=== PATIENT | male | born 1985 | race Caucasian/White ===

== ENCOUNTER 2016-09-16 04:31 | Inpatient (IN) ==
[2016-09-16 05:07] LABS: Basophils # 0.1 K/mcL (0.0-0.2); Basophils % 0.9 %; Eosinophils # 0.2 K/mcL (0.0-0.6); Eosinophils % 3.5 %; Hematocrit 39.9 % (37.5-50.1); Hemoglobin 13.1 g/dL (12.9-16.9); Immature Granulocytes % 0.3 % (0-4); Lymphocytes # 1.4 K/mcL (0.6-4.6); Lymphocytes % 21.8 %; Mean Corpuscular HGB Conc 32.8 g/dL (31.6-35.5); Mean Corpuscular Hemoglobin 30.3 pg (28.0-33.3); Mean Corpuscular Volume 92.4 fL (83.0-100.0); Mean Platelet Volume 9.8 fL (9.4-12.4); Monocytes # 0.5 K/mcL (0.0-1.3); Monocytes % 7.9 %; Neutrophils # 4.3 K/mcL (1.6-8.9); Platelet Count 140 K/mcL (140-400); Red Blood Count 4.32 M/mcL (4.19-5.50); Red Cell Distribution Width 14.4 % (11.5-14.5); Segmented Neutrophils % 65.6 %
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
[2016-09-16] MEDS ORDERED: Furosemide 40 MG/4 ML VIAL IVP ONE (05:20)
[2016-09-16 05:43] LABS: Carbon Dioxide 27 mEq/L (19-29); Chloride 98 mEq/L (98-109); Potassium 4.9 mEq/L (3.5-4.5); Sodium 139 mEq/L (136-145)
[2016-09-16 05:44] LABS: Alkaline Phosphatase 113 Units/L (38-126); Aspartate Amino Transferase 11 Units/L (5-34); Bilirubin,Direct 0.2 mg/dL (0.0-0.5); Bilirubin,Indirect 0.3 mg/dL (0.0-1.2); Bilirubin,Total 0.5 mg/dL (0.2-1.2); Glucose 131 mg/dL (70-99); eGFR For African Americans 7 (> 60); eGFR For Non-African Americans 6 (> 60)
[2016-09-16 05:45] LABS: Alanine Aminotransferase < 6 Units/L (0-55); Albumin 3.4 g/dL (3.5-5.0); Globulin 3.4 g/dL (2.4-3.5); Total Protein 6.8 g/dL (6.0-8.3)
[2016-09-16 05:46] LABS: BUN/Creatinine Ratio 4 (6-26); Blood Urea Nitrogen 44 mg/dL (8-26); Calcium 10.4 mg/dL (8.6-10.8); Osmolality,Calculated 301 (280-300)
[2016-09-16] MEDS ORDERED: *HR* HYDROcodone/Acet 5/325 mg TABLET PO ONE (05:51)
[2016-09-16] MEDS ORDERED: Ipratropium/Albuterol Neb 3 ML IH ONE (05:54)
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
[2016-09-16] MEDS ORDERED: Ondansetron 4 MG/2 ML VIAL IVP PRN (08:11)
[2016-09-16] MEDS ORDERED: 0.9 % Sodium Chloride 250 ML IV PRN (08:30)
[2016-09-16] MEDS: Metoprolol XL (24 HR) Succ 50 MG TAB.ER.24H PO SCH (09:06)
[2016-09-16] MEDS: Aspirin Enteric Coated 81 MG Tablet PO SCH (09:06)
--- NOTE | 2016-09-16 09:57 | Nephrology Consult Note ---
Date of Encounter: 09/16/16 Time of Encounter: 09:25 Assessment and Plan (1) ESRD (end stage renal disease) on dialysis Current Visit: Yes Status: Chronic ESRD on HD every M/W/. Will arrange for 270 min, which is his standard time on dialysis. He will need HD today for clearance for fluid removal. His Target Weight according to the [facility] records was listed at 132.5kg. Goal UF for today is about 5kg as tolerated. Anemia of CKD: Goal Hgb is 10-11, and will provide EPO &/or IV iron as need, depending upon how long he is hospitalized. CKD-BMD: Phos goal is 3.5-5.5, so he should receive his Phos binders qAC and with snacks (at the beginning of meals). Nutrition: goal serum albumin is 4. Low Phos, Low K+ and high protein (Renal diet) is recommended. Access: KORY AVF appears excellent Thank you for consulting the [facility] group. (2) Accelerated hypertension Current Visit: No Status: Acute Acute on Chronic. Will improve with fluid removal on dialysis today. (3) Lower extremity edema Current Visit: No Status: Acute Should improve with fluid removal on HD today. If needed, he may need an additional treatment (UF) for Friday. Qualifiers: Laterality: bilateral Qualified Code(s): R60.0 - Localized edema (4) Anemia in CKD (chronic kidney disease) Current Visit: No Status: Chronic See above (5) Pleural effusion Current Visit: Yes Status: Acute Acute on chronic. Recurrent and now appears loculated. Does he need a pleurodesis: consider Pulm consulation. History of Present Illness - Reason for Consult Consult date: 09/16/16 end stage renal disease Requesting physician: Genaro Stephens - Chief Complaint Shortness of breath - History of Present Illness Song Snyder is a very pleasant 31 y/o WM with a pmh of ESRD on HD M/W/F, chronic suprapubic catheter, and et al who presented with shortness of breath. He has a known right sided pleural effusion, and the pt volunteered/said that he thinks it has worsened. His shortness of breath has been worsening over the last few days, exacerbated by laying flat and with exertion. He did not affirm F /C/N/V/D, abd pain or any new rash. He was seen in the ICU (because the 2N unit overflowed to the ICU). He was sitting up on the side of his bed. He did not voice any uremic symptoms, either. His primary roving carrier is Dr. Wynne. He dialyzes at the [facility] in [place], [place], via a LUE AVF for 270 min with a goal dry weight of 132.5 kg, which I confirmed with the patient. Past Med Surg Social Fam HX - Past Medical History Medical history: cardiomyopathy, CHF, dialysis, hypertension, renal disease Psychiatric history: depression - Past Surgical History Surgical History: orthopedic, other, vascular surgery - Social History Smoking Status: Current every day smoker Smokeless Tobacco Status: No Alcohol use: none Drug use: none - Family History Mother Living Status: Still Living Hx Family Endocrine Disorder: Yes (DM) Hx Family Neurologic Disorders: Yes (stroke) Father Living Status: Still Living Hx Family Cardiac Disorders: Yes (CAD) Hx Family Respiratory Disorders: No Hx Family Cancer: No Hx Family GI Disorders: No Hx Family Endocrine Disorder: Yes (Diabetes) Hx Family Neuromuscular Disorders: No Hx Family Neurologic Disorders: No Hx Family HEENT Disorders: No Hx Family Autoimmune Disorders: No Medications and Allergies Aspirin Enteric Coated [Aspirin EC] 81 mg PO DAILY #30 tablet. 05/04/15 [Rx] Cinacalcet HCl [Sensipar] 60 mg PO DAILY 04/06/16 [History] Sevelamer [Renvela] 1,600 mg PO TIDWM 04/06/16 [History] HydrALAZINE 50 mg PO Q8HR #90 tablet 07/08/16 [Rx] Metoprolol XL (24 HR) Succ [Toprol Xl] 100 mg PO DAILY #90 tab.er.24h 07/08/16 [ Rx] Furosemide [Lasix] 40 mg PO AD 08/12/16 [History] Albuterol Sulfate [Proair Hfa] 1 - 2 puff IH PRN PRN 08/18/16 [History] Albuterol Sulfate [Albuterol Inhaler] 2 puff IH Q4HR #1 hfa.aer.ad 08/19/16 [Rx] Fluticasone/Salmeterol [Advair 250-50 Diskus] 1 each IH Q12H #1 blst.w.dev 08/19 [Rx] Allergies No Known Allergies Allergy (Verified 08/18/16 18:27) Review of Systems All Systems: reviewed and no additional remarkable complaints except as stated Exam - Vital Signs Vital signs: Initial Vital Signs Temp Pulse Resp BP Pulse Ox 98.2 F 105 18 184/120 95 09/16/16 04:41 09/16/16 04:41 09/16/16 04:41 09/16/16 04:41 09/16/16 04:41 Vital Signs - Last 8 Hours Temp Pulse Resp BP Pulse Ox 09/16/16 08:00 97.7 F 99 16 174/125 96 09/16/16 07:30 98 16 160/123 96 Intake and Output 09/15/16 09/16/16 09/16/16 23:59 07:59 15:59 Intake Total 0 / 0 Output Total 0 / 0 Balance 0 / 0 Intake: Oral 0 / 0 Output: Catheter 0 / 0 Other: Weight 137.4 kg Blood Glucose* 127 Patient Weight 09/16/16 23:59 Weight 137.4 kg - General Appearance General appearance: well-developed, well-nourished, appears started age, obese EENT: ATNC, PERRL, mucous membranes moist Neck: supple Respiratory: clear (on the left, but he has dullness to percusion on the right posteriorly and from the scapula down. ) Cardiology: edema (1+ tight LE edema up to the pretibial b/l), regular rate, normal S1, normal S2 - Dialysis Access Dialysis Vascular Access: Arteriovenous Fistula (LUE) thrill: Yes bruit: Yes Gastrointestinal: normoactive bowel sounds, no guarding, obese Integumentary: no rash, warm and dry Neurologic: no focal deficit, no asterixis, alert and oriented x3 Musculoskeletal: no deformities, no erythema, no cyanosis, no clubbing Psychiatric: mood/affect appropriate, cooperative Results - Lab Results 09/16/16 04:50 09/16/16 04:50 Most recent lab results Calcium 10.4 mg/dL (8.6-10.8) 09/16/16 04:50 I reviewed the above auto-generated date. I also reviewed outside medical records from [facility]. I looked at vitals, including BP and weights. I reviewed imaging, labs and notes. Consult Discharge Plan - Plan Referrals: Lavon Estrada Jr, MD [Primary Care Provider] -
--- NOTE | 2016-09-16 10:32 | Electrocardiograph Report ---
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
[2016-09-16] MEDS: Budesonide/Formoterol 80/4.5 MDI IH SCH ×2 (11:18→20:01)
[2016-09-16] MEDS: Ipratropium/Albuterol Neb 3 ML IH SCH ×4 (11:18→23:13)
--- NOTE | 2016-09-16 12:53 | ECHO - Doppler Report ---
Limited Echocardiogram Name: Song Snyder Date of Study: 09/16/2016 Date: 1985 Ht: 76.0 in Medical Record#: [id number] Age: 31 Wt: 302.0 lb Gender: Male BSA: 2.64 Order #: [id number] Location: [facility] Room #: IC8 Reading Physician: Lamont Mora DO, FACC, FASE, FASNC Suction Drum Drier Operator: Eleonora Denis Ordering Physician: Rustam Baltazar DO Primary Physician: Lavon Estrada MD Indications: Re-evaluate CHF Impressions: LVEF 25-30%. Severely dilated left ventricle. Severe global left ventricular systolic dysfunction. Mildly dilated and hypokinetic right ventricle. Limited study for LVEF. Valves were not assessed. Left Ventricular Wall Motion: Rest Echo Findings The apex, apical inferior, mid inferior, basal inferior, apical anterior, mid anterior, basal anterior, apical septal, mid inferior septal, basal inferior septal, apical lateral, mid anterior lateral, basal anterior lateral, mid anterior septal, mid inferior lateral, basal anterior septal and basal inferior lateral higgins were hypokinetic. Findings: Study Quality * Technically adequate exam. ECG Findings * Normal sinus rhythm. Left Ventricle * LVEF 25-30%. * Severely dilated left ventricle. * Severe global left ventricular systolic dysfunction. Right Ventricle * Mildly dilated and hypokinetic right ventricle. Left Atrium * Severely dilated left atrium. Right Atrium * Moderately dilated right atrium. Pericardium * There is a trivial pericardial effusion present. History Hypertension History of Smoking Years 10 Packs 0.5 Family History of CAD Congestive Heart Failure 06/23/2016 a Previous Echo was performed. Measurements: BP: 174/ 125 2D Normal Values RVIDd: 4.80 cm <2.7 cm IVSd: 1.20 cm 0.6 - 1.0 cm LVIDd: 6.90 cm 3.7 - 5.6 cm LVPWd: 1.20 cm 0.6 - 1.1 cm LVIDs: 6.00 cm 1.5 - 3.6 cm AO: 3.40 cm < 4.0 cm LA: 5.60 cm 2.0 - 4.0cm %FS: 13.00 cm >25 % LA volume: 127 Updated by Lamont Mora DO, FACC, FASE, FASNC on 09/16/2016 12:48:32 PM electronically signed on 09/16/2016 12:49:00 PM with status of Final Wall Motion Lopez: 1=Normal, 2=Hypokinesis, 3=Akinesis, 4=Dyskinesis, 5=Aneurysmal, 6=Hyperkinetic, X=Not Visualized (Blank)=Missing
[2016-09-16] MEDS: Acetaminophen 325 MG TABLET PO PRN ×2 (16:40→22:09)
[2016-09-16] MEDS: *HR* Heparin 5,000 UNIT/ML VIAL SQ SCH ×2 (16:43→16:48)
[2016-09-16] MEDS: hydrALAZINE 25 MG TABLET PO SCH (16:43)
[2016-09-16] MEDS: amLODIPine 5 MG TABLET PO SCH (20:53)
[2016-09-17] MEDS: *HR* Heparin 5,000 UNIT/ML VIAL SQ SCH (01:05)
[2016-09-17] MEDS: hydrALAZINE 25 MG TABLET PO SCH ×2 (01:05→17:00)
[2016-09-17] MEDS: Ipratropium/Albuterol Neb 3 ML IH SCH ×4 (03:27→15:06)
[2016-09-17] MEDS: Acetaminophen 325 MG TABLET PO PRN (04:10)
[2016-09-17] MEDS ORDERED: traMADol 50 MG TABLET PO PRN (05:42)
[2016-09-17] MEDS: Aspirin Enteric Coated 81 MG Tablet PO SCH ×2 (06:04→13:34)
[2016-09-17 07:39] LABS: Basophils # 0.1 K/mcL (0.0-0.2); Basophils % 1.2 %; Eosinophils # 0.3 K/mcL (0.0-0.6); Eosinophils % 5.1 %; Hematocrit 37.5 % (37.5-50.1); Hemoglobin 12.5 g/dL (12.9-16.9); Immature Granulocytes % 0.2 % (0-4); Lymphocytes # 1.7 K/mcL (0.6-4.6); Lymphocytes % 27.5 %; Mean Corpuscular HGB Conc 33.3 g/dL (31.6-35.5); Mean Corpuscular Hemoglobin 30.8 pg (28.0-33.3); Mean Corpuscular Volume 92.4 fL (83.0-100.0); Mean Platelet Volume 10.7 fL (9.4-12.4); Monocytes # 0.6 K/mcL (0.0-1.3); Monocytes % 10.4 %; Neutrophils # 3.4 K/mcL (1.6-8.9); Platelet Count 110 K/mcL (140-400); Red Blood Count 4.06 M/mcL (4.19-5.50); Red Cell Distribution Width 14.5 % (11.5-14.5); Segmented Neutrophils % 55.6 %
[2016-09-17 07:42] LABS: Calcium 9.6 mg/dL (8.6-10.8)
[2016-09-17 07:44] LABS: Potassium 5.1 mEq/L (3.5-4.5)
[2016-09-17] MEDS: Budesonide/Formoterol 80/4.5 MDI IH SCH (07:49)
[2016-09-17] MEDS ORDERED: 0.9 % Sodium Chloride 250 ML IV PRN (08:50)
[2016-09-17] MEDS ORDERED: 0.9 % Sodium Chloride 1,000 ML PRIME SCH (09:00)
--- NOTE | 2016-09-17 09:26 | IR Procedure Note ---
Date of procedure: 09/17/16 Consent Obtained: Verbal consent Timeout: Correct patient and procedure verified, Correct site verified, Time out performed, Skin prep completed Indications: right effusion Procedure Performed: right thoracentesis Site/Technique: right, 8F sheath Results/Findings: moderate pleural fluid Estimated blood loss (cc): 0 Complications: None; Tolerated procedure well Post Procedure Treatment Plan: CXR
[2016-09-17] MEDS ORDERED: Furosemide 20 MG/2 ML VIAL IVP SCH (09:44)
--- NOTE | 2016-09-17 09:58 | Nephrology Progress Note ---
<Matilda Goldman - Last Filed: 09/17/16 10:01> Date of Encounter: 09/17/16 Time of Encounter: 09:56 - Assessment and Plan (1) ESRD (end stage renal disease) on dialysis Current Visit: Yes Status: Chronic Patient is grossly non-compliant with fluids and diet UF today for 2 hours for additional fluid removal Continue renal diet and 1.5 liter/day fluid restriction Avoid nephrotoxins if possible (2) Pleural effusion Current Visit: Yes Status: Acute s/p thoracentesis this am per primary/pulmonary team (3) Accelerated hypertension Current Visit: No Status: Acute Improving Should continue to improve with fluid removal Subjective Principal diagnosis: ESRD on dialysis, fluid overload Interval history: Patient seen and examined while on dialysis. Had right thoracentesis this am with 2 liters removed per patient. Objective - Vital Signs Vital signs: Vital Signs Temp Pulse Resp BP Pulse Ox 09/17/16 07:06 97.7 F 93 16 148/94 93 L 09/17/16 04:20 98.0 F 90 18 137/87 94 L 09/17/16 03:27 18 96 09/16/16 23:56 98.7 F 86 16 122/77 92 L 09/16/16 23:13 15 91 L 09/16/16 20:01 16 96 09/16/16 19:53 97.8 F 86 16 156/110 97 09/16/16 16:55 20 151/101 09/16/16 15:15 151/101 09/16/16 15:00 149/102 09/16/16 14:45 162/106 09/16/16 14:30 159/101 09/16/16 14:15 153/100 09/16/16 14:00 161/105 09/16/16 13:45 171/98 09/16/16 13:30 89 19 138/97 96 09/16/16 13:15 171/98 09/16/16 13:00 161/103 09/16/16 12:45 158/96 09/16/16 12:30 169/115 09/16/16 12:15 169/115 09/16/16 12:00 169/114 09/16/16 11:45 151/82 09/16/16 11:30 97.6 F 18 173/118 09/16/16 11:25 87 20 123/98 95 Intake and Output 09/16/16 09/17/16 09/17/16 23:59 07:59 15:59 Intake Total 600 / 600 Output Total 4032 / 4032 Balance -3432 / -3432 Intake: Oral 600 / 600 Output: Total Dialysis Output 4032 / 4032 Other: Meal Dinner Percent of Meal Consumed 100% Weight 134.717 kg Hemodialysis Net Fluid 3432 Removed (mL) Patient Weight 09/17/16 23:59 Weight 134.717 kg - General Appearance General appearance: Present: appears started age, obese EENT: Present: ATNC, mucous membranes moist, hearing intact, vision intact Neck: Present: supple Respiratory: Present: clear Cardiology: Present: edema, normal S1, normal S2 Dialysis Vascular Access: Arteriovenous Fistula Gastrointestinal: Present: no tenderness, no guarding, obese Integumentary: Present: warm and dry Neurologic: Present: alert and oriented x3 Psychiatric: Present: mood/affect appropriate, cooperative - Lab 09/17/16 06:45 09/17/16 06:45 Most recent lab results Calcium 9.6 mg/dL (8.6-10.8) 09/17/16 06:45 Consult Discharge Plan - Plan Additional Instructions: Take all home medications as prescribed Start amlodipine 10 mg once a day Follow-up with your PCP as scheduled Follow-up with cardiology Recommend maintaining compliance of diet, fluid intake, and dialysis Avoid potentially nephrotoxic medications Referrals: Genoveva Pepper CNP [Partnered Physician] - 09/24/16 1:25 pm Prescriptions: Amlodipine [Norvasc] 10 mg PO DAILY #30 tablet <Roz Fisher - Last Filed: 09/17/16 17:23> Objective - Vital Signs Vital signs: Vital Signs Temp Pulse Resp BP Pulse Ox 09/17/16 16:31 97.6 F 77 12 134/95 95 09/17/16 15:06 16 94 L 09/17/16 12:15 97.7 F 16 155/99 09/17/16 12:00 143/93 09/17/16 11:45 139/102 09/17/16 11:30 149/96 09/17/16 11:15 151/103 09/17/16 11:00 147/100 09/17/16 10:45 150/96 09/17/16 10:30 148/100 09/17/16 10:15 97.7 F 16 150/97 09/17/16 07:49 16 94 L 09/17/16 07:06 97.7 F 93 16 148/94 93 L 09/17/16 04:20 98.0 F 90 18 137/87 94 L 09/17/16 03:27 18 96 09/16/16 23:56 98.7 F 86 16 122/77 92 L 09/16/16 23:13 15 91 L 09/16/16 20:01 16 96 09/16/16 19:53 97.8 F 86 16 156/110 97 Intake and Output 09/17/16 09/17/16 09/17/16 07:59 15:59 23:59 Intake Total 600 / 600 Output Total 5600 / 5600 Balance -5000 / -5000 Intake: Oral 0 / 0 Intake, Rinseback and 600 / 600 Flushes Output: Urine 0 / 0 Total Dialysis Output 5600 / 5600 Other: Weight 134.717 kg Hemodialysis Net Fluid 5000 Removed (mL) Patient Weight 09/17/16 23:59 Weight 134.717 kg - Lab 09/17/16 06:45 09/17/16 06:45 Most recent lab results Calcium 9.6 mg/dL (8.6-10.8) 09/17/16 06:45 - Attending Attestation I examined this patient and my medical decision-making was reviewed with the FEED MIXER/PA/Advanced Practice Nurse/Resident Physician. I agree with the documented findings, disposition and treatment plan as described except to the extent set forth below. Pt seen and examined on HD?UF with complaint of fatigue and requesting paracentesis. Continue UF with goal of 4-5kg as tolerated and will defer decision for paracentesis to primary team
[2016-09-17] MEDS ORDERED: Budesonide/Formoterol 80/4.5 MDI IH SCH (10:00)
--- NOTE | 2016-09-17 10:27 | Internal Med Progress Note ---
<Mauricio Collado - Last Filed: 09/17/16 16:25> Date of Encounter: 09/17/16 Time of Encounter: 09:25 - Assessment and plan (1) Pleural effusion Current Visit: Yes Status: Acute (2) CHF (congestive heart failure) Current Visit: Yes Status: Chronic Qualifiers: Congestive heart failure type: combined Congestive heart failure chronicity : unspecified congestive heart failure chronicity Qualified Code(s): I50.40 - Unspecified combined systolic (congestive) and diastolic (congestive) heart failure (3) ESRD (end stage renal disease) on dialysis Current Visit: Yes Status: Chronic - Time Spent With Patient Greater than 35 minutes - Subjective Interval history: Patient had thoracentesis with removal of 2 L this morning. He states he is feeling much better and is able to breathe without difficulties. He states that after the thoracentesis was performed he has had resolution of his orthopnea. He states this is a chronic problem for him necessitating multiple thoracenteses in the past. Overall feeling better today, but states he thinks he may be developing some fluid in his abdomen as he has been feeling a hardness (that he previously associates with fluid collection). He denies chest pain, denies shortness of breath, denies fever/chills, denies weakness. - Constitutional Vitals: Temp Pulse Resp BP Pulse Ox 97.7 F 93 16 148/94 94 L 09/17/16 07:06 09/17/16 07:06 09/17/16 07:49 09/17/16 07:06 09/17/16 07:49 General appearance: Present: cooperative, A&O X 3, no acute distress, obese, answers questions appropriately - Head Head exam: Present: atraumatic, normocephalic - Eye Eye exam: Present: conjuntiva pink, sclera anicteric - Neck Neck exam general surgery: Present: supple, trachea midline - Respiratory Respiratory exam: Present: decreased breath sounds (On right side). Absent: accessory muscle use, CTAB, rales, rhonchi, wheezes - Cardiovascular Cardiovascular exam: Present: RRR, +S1, +S2. Absent: diastolic murmur, gallop, rubs, systolic murmur - GI/Abdominal GI/Abdominal exam: Present: normal bowel sounds, soft, no peritoneal signs. Absent: distended, tenderness Additional comments: Periumbilical area slightly firm to touch, patient states this is indicative of fluid collection - Extremities Exam Extremities exam: Present: warm, radial pulses palpable and symetrical. Absent : calf tenderness, cyanotic, pedal edema - Neurological Exam Neurological exam: Present: alert, oriented X3, no focal deficits. Absent: facial droop, speech deficit - Skin Skin exam: Present: dry, intact Internal Medicine: Result - Labs CBC & Chem 7: 09/17/16 06:45 09/17/16 06:45 Labs: Short CBC 09/17/16 Range/Units 06:45 WBC 6.1 (4.3-11.1) K/mcL Hgb 12.5 L (12.9-16.9) g/dL Hct 37.5 (37.5-50.1) % Plt Count 110 L (140-400) K/mcL Neutrophils # 3.4 (1.6-8.9) K/mcL BMP 09/17/16 06:45 Sodium 136 Potassium 5.1 H Chloride 100 Carbon Dioxide 23 BUN 35 H Creatinine 8.63 H Glucose 104 H Calcium 9.6 Cardiac Enzymes 09/16/16 09/16/16 Range/Units 10:11 16:20 Troponin I 0.07 H* 0.06 H* (0-0.03) ng/mL - Impressions Impressions Thoracentesis Ultrasound 09/17/16 00:00 IMPRESSION: Successful ultrasound guided thoracentesis. D/ / Tri Truong MD / Tri Truong MD Interpreting Provider: Tri Truong MD Chest X-Ray 09/17/16 09:27 IMPRESSION: No acute cardiopulmonary process. There has been a decrease in the right pleural effusion. No pneumothorax is identified. A moderate to large right pleural effusion persists. There is persistent atelectasis or airspace disease in the right lung base. Follow-up to complete resolution is suggested. D/ / 09/17/2016 10:14:53 Alysia Andersen MD / Nora Daniels Interpreting Provider: Alysia Andersen MD Consult Discharge Plan - Plan Additional Instructions: Take all home medications as prescribed Start amlodipine 10 mg once a day Follow-up with your PCP as scheduled Follow-up with cardiology Recommend maintaining compliance of diet, fluid intake, and dialysis Avoid potentially nephrotoxic medications Referrals: Genoveva Pepper CNP [Partnered Physician] - 09/24/16 1:25 pm Prescriptions: Amlodipine [Norvasc] 10 mg PO DAILY #30 tablet <Vicente Mayfield - Last Filed: 09/17/16 17:05> - Constitutional Vitals: Temp Pulse Resp BP Pulse Ox 97.6 F 77 12 134/95 95 09/17/16 16:31 09/17/16 16:31 09/17/16 16:31 09/17/16 16:31 09/17/16 16:31 Internal Medicine: Result - Labs CBC & Chem 7: 09/17/16 06:45 09/17/16 06:45 Labs: Short CBC 09/17/16 Range/Units 06:45 WBC 6.1 (4.3-11.1) K/mcL Hgb 12.5 L (12.9-16.9) g/dL Hct 37.5 (37.5-50.1) % Plt Count 110 L (140-400) K/mcL Neutrophils # 3.4 (1.6-8.9) K/mcL BMP 09/17/16 06:45 Sodium 136 Potassium 5.1 H Chloride 100 Carbon Dioxide 23 BUN 35 H Creatinine 8.63 H Glucose 104 H Calcium 9.6 - Impressions Impressions Thoracentesis Ultrasound 09/17/16 00:00 IMPRESSION: Successful ultrasound guided thoracentesis. D/ / Tri Truong MD / Tri Truong MD Interpreting Provider: Tri Truong MD Chest X-Ray 09/17/16 09:27 IMPRESSION: No acute cardiopulmonary process. There has been a decrease in the right pleural effusion. No pneumothorax is identified. A moderate to large right pleural effusion persists. There is persistent atelectasis or airspace disease in the right lung base. Follow-up to complete resolution is suggested. D/ / 09/17/2016 10:14:53 Alysia Andersen MD / Nora Daniels Interpreting Provider: Alysia Andersen MD - Attending Attestation The patient was seen and examined with the resident during rounds. I agree with the physical examination findings, assessment and plan as documented by the resident, Dr. Collado. Briefly, patient with end-stage renal disease on hemodialysis and severe systolic dysfunction admitted due to fluid overload and hypoxemia. He has improved after hemodialysis and thoracenteses done via interventional radiology. Patient will follow up with cardiology in light of persistent systolic dysfunction, he likely benefit from resynchronization therapy and possible implantable cardiac defibrillator. Patient will be discharged home today. Follow up with cardiology and nephrology is recommended.
[2016-09-17] MEDS: amLODIPine 5 MG TABLET PO SCH (13:33)
[2016-09-17] MEDS: Metoprolol XL (24 HR) Succ 50 MG TAB.ER.24H PO SCH (13:33)
[2016-09-17] MEDS ORDERED: 0.9 % Sodium Chloride 2,000 ML ONE (13:39)
--- NOTE | 2016-09-17 15:40 | Discharge Summary ---
<Mauricio Collado - Last Filed: 09/17/16 15:37> Date of Encounter: 09/17/16 Time of Encounter: 09:25 - Discharge Diagnosis (1) Pleural effusion Priority: Primary Status: Acute (2) CHF (congestive heart failure) Priority: Primary Status: Chronic Qualifiers: Congestive heart failure type: combined Congestive heart failure chronicity : unspecified congestive heart failure chronicity Qualified Code(s): I50.40 - Unspecified combined systolic (congestive) and diastolic (congestive) heart failure (3) ESRD (end stage renal disease) on dialysis Priority: Primary Status: Chronic - Discharge Medications Prescriptions: Amlodipine [Norvasc] 10 mg PO DAILY #30 tablet Home Medications: Aspirin Enteric Coated [Aspirin EC] 81 mg PO DAILY #30 tablet.dr 05/04/15 [Rx] Cinacalcet HCl [Sensipar] 60 mg PO DAILY 04/06/16 [History] Sevelamer [Renvela] 1,600 mg PO TIDWM 04/06/16 [History] HydrALAZINE 50 mg PO Q8HR #90 tablet 07/08/16 [Rx] Metoprolol XL (24 HR) Succ [Toprol Xl] 100 mg PO DAILY #90 tab.er.24h 07/08/16 [ Rx] Furosemide [Lasix] 40 mg PO AD 08/12/16 [History] Albuterol Sulfate [Proair Hfa] 1 - 2 puff IH PRN PRN 08/18/16 [History] Albuterol Sulfate [Albuterol Inhaler] 2 puff IH Q4HR #1 hfa.aer.ad 08/19/16 [Rx] Fluticasone/Salmeterol [Advair 250-50 Diskus] 1 each IH Q12H #1 blst.w.dev 08/19 [Rx] Amlodipine [Norvasc] 10 mg PO DAILY #30 tablet 09/17/16 [Rx] Allergies/Adverse Reactions: Allergies No Known Allergies Allergy (Verified 08/18/16 18:27) Procedures/tests Complete & Pending: Procedures Performed prior 72 hours Category Date Time Status IR thoracentesis ultrasound [IR] Routine IR 09/17/16 Completed EV limited echocardiogram Routine Y 09/16/16 08:50 Completed Date of admission: 09/16/16 07:15 Primary care physician: Lavon Estrada Jr, MD Consults: 09/16/16 07:37 Consult to Nephrology [CONS] Routine Consulting Provider: [facility] Sp[facility] CHOI/JEANETTE Reason for Consult: ESRD on HD MWF Call Completed: Yes 09/16/16 08:30 Consult to Dialysis [CONS] ONCE 09/16/16 08:51 Consult to Interventional Radiology [CONS] Routine Consulting Provider: Radiology Interventional Cols Reason for Consult: Right pleural effusion. Appreciate thoracentesis Call Completed: Yes 09/17/16 08:30 Consult to Dialysis [CONS] ONCE 09/17/16 09:00 Consult to Dialysis [CONS] ONCE Discharging clinician: Mauricio Collado Anticipated date of discharge: 09/17/16 - Patient Status Disposition: Home, Self-Care Condition: Good Functional capacity at discharge: independent ambulation Overall status at discharge: patient is back to baseline - Discharge Instructions Follow Up With: Genoveva Pepper CNP [Partnered Physician] - 09/24/16 1:25 pm Forms: ED Satisfaction Letter Additional Instructions: Take all home medications as prescribed Start amlodipine 10 mg once a day Follow-up with your PCP as scheduled Follow-up with cardiology Recommend maintaining compliance of diet, fluid intake, and dialysis Avoid potentially nephrotoxic medications - Diet and Activity Activity: increase activity as tolerated Diet: advance to your usual diet ( ) Interval History: Patient had thoracentesis with removal of 2 L this morning. He states he is feeling much better and is able to breathe without difficulties. He states that after the thoracentesis was performed he has had resolution of his orthopnea. He states this is a chronic problem for him necessitating multiple thoracenteses in the past. Overall feeling better today, but states he thinks he may be developing some fluid in his abdomen as he has been feeling a hardness (that he previously associates with fluid collection). He denies chest pain, denies shortness of breath, denies fever/chills, denies weakness. Hospital course: Mr. Snyder is a 31 year old male with prior medical history of systolic and diastolic heart failure, ESRD on HD, and hypertension who presented to [facility] on 09/16/16 with worsening shortness of breath despite his compliance with dialysis. He was found to have significant right-sided pleural effusion on chest x-ray. He underwent dialysis on 09/16/16 and again on 09/17/16. Interventional radiology performed a successful thoracentesis amateur 2 L of serous fluid. He has received multiple thoracenteses in the past, and patient reports that he felt much improved following the procedure. He states that his breathing was back to normal and he felt perfectly fine. Patient is stable for discharge, with close follow-up with his director validation and continued dialysis. Recommend maintain compliance with diet, fluids, and dialysis. - Time Spent with Patient Total time spent providing and/or coordinating discharge services: Greater than 30 minutes - Constitutional Vitals: Temp Pulse Resp BP Pulse Ox 97.7 F 93 16 155/99 94 L 09/17/16 12:15 09/17/16 07:06 09/17/16 15:06 09/17/16 12:15 09/17/16 15:06 General appearance: Present: cooperative, A&O X 3, no acute distress, obese, answers questions appropriately - Head Head exam: Present: atraumatic, normocephalic - Eye Eye exam: Present: conjuntiva pink, sclera anicteric - Neck Neck exam general surgery: Present: supple, trachea midline - Respiratory Respiratory exam: Present: decreased breath sounds (On right). Absent: accessory muscle use, CTAB, rales, rhonchi, wheezes - Cardiovascular Cardiovascular exam: Present: RRR, +S1, +S2, systolic murmur. Absent: diastolic murmur, gallop, rubs - GI/Abdominal GI/Abdominal exam: Present: normal bowel sounds, soft, no peritoneal signs. Absent: distended, tenderness - Extremities Exam Extremities exam: Present: warm, radial pulses palpable and symetrical. Absent : calf tenderness, cyanotic, pedal edema - Neurological Exam Neurological exam: Present: alert, oriented X3, no focal deficits. Absent: facial droop, speech deficit - Skin Skin exam: Present: dry, intact <Vicente Mayfield - Last Filed: 09/17/16 17:05> Procedures/tests Complete & Pending: Procedures Performed prior 72 hours Category Date Time Status IR thoracentesis ultrasound [IR] Routine IR 09/17/16 Completed EV limited echocardiogram Routine Y 09/16/16 08:50 Completed Date of admission: 09/16/16 07:15 Primary care physician: Lavon Estrada Jr, MD Consults: 09/16/16 07:37 Consult to Nephrology [CONS] Routine Consulting Provider: [facility] Sp[facility] CHOI/JEANETTE Reason for Consult: ESRD on HD MWF Call Completed: Yes 09/16/16 08:30 Consult to Dialysis [CONS] ONCE 09/16/16 08:51 Consult to Interventional Radiology [CONS] Routine Consulting Provider: Radiology Interventional Cols Reason for Consult: Right pleural effusion. Appreciate thoracentesis Call Completed: Yes 09/17/16 08:30 Consult to Dialysis [CONS] ONCE 09/17/16 09:00 Consult to Dialysis [CONS] ONCE Hospital course: Mr. Snyder is a 31 year old male - Time Spent with Patient Total time spent providing and/or coordinating discharge services: - Constitutional Vitals: Temp Pulse Resp BP Pulse Ox 97.6 F 77 12 134/95 95 09/17/16 16:31 09/17/16 16:31 09/17/16 16:31 09/17/16 16:31 09/17/16 16:31 - Attending Attestation The patient was seen and examined with the resident during rounds. I agree with the physical examination findings, assessment and plan as documented by the resident, Dr. Collado. Briefly, patient with end-stage renal disease on hemodialysis and severe systolic dysfunction admitted due to fluid overload and hypoxemia. He has improved after hemodialysis and thoracenteses done via interventional radiology. Patient will follow up with cardiology in light of persistent systolic dysfunction, he likely benefit from resynchronization therapy and possible implantable cardiac defibrillator. Patient will be discharged home today. Follow up with cardiology and nephrology is recommended.
[2016-09-17 16:32] VITALS: BP 134/95
== END 2016-09-17 18:52 | disposition home or self-care (01) | DRG 186 ==
LOC: EMEROO 04:31 → ICNU 07:15 → SUATTDRO 07:15 → ICNU 08:02 → 2ANU 16:45
PROVIDERS: ADMIT Internal Medicine Sleep Medicine; ATTEND Internal Medicine

== ENCOUNTER 2016-09-30 14:46 | Observation (INO) ==
[2016-09-30] MEDS ORDERED: Ipratropium/Albuterol Neb 3 ML IH ONE (15:04)
[2016-09-30 15:15] LABS: Basophils # 0.1 K/mcL (0.0-0.2); Eosinophils # 0.3 K/mcL (0.0-0.6); Eosinophils % 4.1 %; Hemoglobin 12.9 g/dL (12.9-16.9); Immature Granulocytes % 0.2 % (0-4); Lymphocytes # 1.4 K/mcL (0.6-4.6); Lymphocytes % 22.1 %; Mean Corpuscular HGB Conc 33.9 g/dL (31.6-35.5); Mean Corpuscular Hemoglobin 30.6 pg (28.0-33.3); Mean Corpuscular Volume 90.3 fL (83.0-100.0); Mean Platelet Volume 10.1 fL (9.4-12.4); Monocytes # 0.5 K/mcL (0.0-1.3); Monocytes % 7.8 %; Neutrophils # 4.1 K/mcL (1.6-8.9); Platelet Count 152 K/mcL (140-400); Red Blood Count 4.21 M/mcL (4.19-5.50); Red Cell Distribution Width 14.1 % (11.5-14.5); Segmented Neutrophils % 64.8 %
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
[2016-09-30 15:25] LABS: Calcium 9.1 mg/dL (8.6-10.8); Potassium 3.4 mEq/L (3.5-4.5)
[2016-09-30] MEDS ORDERED: Ondansetron 4 MG/2 ML VIAL IVP ONE (15:33)
[2016-09-30] MEDS ORDERED: *HR* Morphine 2 MG/ML SYRINGE IV ONE (15:33)
[2016-09-30] MEDS ORDERED: Naloxone 0.4 MG/ML INJ IVP PRN (21:17)
[2016-09-30] MEDS ORDERED: Ondansetron ODT 4 MG TAB.RAPDIS SL PRN (21:17)
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
[2016-09-30] MEDS: Budesonide/Formoterol 80/4.5 MDI IH SCH (23:37)
[2016-09-30] MEDS: hydrALAZINE 25 MG TABLET PO SCH (23:52)
[2016-10-01] MEDS: Acetaminophen 325 MG TABLET PO PRN ×4 (02:02→22:23)
[2016-10-01 04:30] LABS: Basophils # 0.1 K/mcL (0.0-0.2); Basophils % 1.1 %; Eosinophils # 0.2 K/mcL (0.0-0.6); Eosinophils % 4.9 %; Hematocrit 37.7 % (37.5-50.1); Hemoglobin 12.4 g/dL (12.9-16.9); Immature Granulocytes % 0.2 % (0-4); Lymphocytes # 1.1 K/mcL (0.6-4.6); Lymphocytes % 24.1 %; Mean Corpuscular HGB Conc 32.9 g/dL (31.6-35.5); Mean Corpuscular Hemoglobin 30.5 pg (28.0-33.3); Mean Corpuscular Volume 92.9 fL (83.0-100.0); Mean Platelet Volume 10.2 fL (9.4-12.4); Monocytes # 0.5 K/mcL (0.0-1.3); Monocytes % 10.4 %; Neutrophils # 2.8 K/mcL (1.6-8.9); Platelet Count 124 K/mcL (140-400); Red Blood Count 4.06 M/mcL (4.19-5.50); Red Cell Distribution Width 14.1 % (11.5-14.5); Segmented Neutrophils % 59.3 %
[2016-10-01 04:45] LABS: Calcium 9.9 mg/dL (8.6-10.8); Magnesium 2.1 mg/dL (1.6-2.6); Phosphorous 7.8 mg/dL (2.3-4.7); Potassium 4.2 mEq/L (3.5-4.5)
[2016-10-01] MEDS: Ipratropium/Albuterol Neb 3 ML IH SCH ×2 (05:33→12:28)
[2016-10-01] MEDS: *HR* Heparin 5,000 UNIT/ML VIAL SQ SCH ×2 (06:18→17:11)
[2016-10-01] MEDS: Budesonide/Formoterol 80/4.5 MDI IH SCH ×2 (07:47→22:37)
[2016-10-01] MEDS: hydrALAZINE 25 MG TABLET PO SCH ×3 (08:05→22:23)
[2016-10-01] MEDS: Aspirin Enteric Coated 81 MG Tablet PO SCH (08:06)
[2016-10-01] MEDS: Metoprolol XL (24 HR) Succ 50 MG TAB.ER.24H PO SCH (08:08)
--- NOTE | 2016-10-01 08:43 | Nephrology Consult Note ---
Date of Encounter: 10/01/16 Time of Encounter: 09:50 Assessment and Plan (1) ESRD (end stage renal disease) on dialysis Current Visit: Yes Status: Chronic Last HD was on Friday, which was yesterday. Pleural Effusion: would he need a pleurodesis? I've brought this up in the past. Will defer to primary. Next HD is planned for Friday. HTN: continue home Rx, Renal diet with fluid and salt restriction given his chronic edema His Target/Dry weight, is listed as 129kg in the [facility] records, and he weighs 129 kg today, so he appears to not need extra HD or UF today. Thank you for consulting the [facility]. (2) Pleural effusion Current Visit: Yes Status: Acute (3) Hypertension Current Visit: Yes Status: Chronic Qualifiers: Hypertension type: essential hypertension Qualified Code(s): I10 - Essential (primary) hypertension History of Present Illness - Reason for Consult Consult date: 10/01/16 end stage renal disease Requesting physician: Melania Rey - Chief Complaint ESRD with recurrent pleural effusion - History of Present Illness Song Snyder is a very pleasant 31 y/o gentleman with a pmh of obesity, edema , ESRD on HD M/WF, recurrent pleural effusion and et al who presented with worsened shortness of breath and worsened pleural effusion. He did not affirm N/ V/D or chest pain. He last attended dialysis yesterday at his chronic unit, [facility] in [place], [place]. His primary junior manufacturing engineer is Dr. Wynne. He dialyzes via a LUE AVF. He did not complete all of his last HD, he said he stopped about 20 min early d/t his worsening shortness of breath, which improves when he lays with the effusion side down, thus on his side. He did not affirm F/C or problems with chronic suprapubic catheter. Past Med Surg Social Fam HX - Past Medical History Medical history: cardiomyopathy, CHF, dialysis, hypertension, renal disease Psychiatric history: depression - Past Surgical History Surgical History: orthopedic, other, vascular surgery - Social History Smoking Status: Current every day smoker Packs per day: <1 Smokeless Tobacco Status: No Alcohol use: none Drug use: none - Family History Mother Living Status: Still Living Hx Family Endocrine Disorder: Yes (DM) Hx Family Neurologic Disorders: Yes (stroke) Father Living Status: Still Living Hx Family Cardiac Disorders: Yes (CAD) Hx Family Respiratory Disorders: No Hx Family Cancer: No Hx Family GI Disorders: No Hx Family Endocrine Disorder: Yes (Diabetes) Hx Family Neuromuscular Disorders: No Hx Family Neurologic Disorders: No Hx Family HEENT Disorders: No Hx Family Autoimmune Disorders: No Medications and Allergies Aspirin Enteric Coated [Aspirin EC] 81 mg PO DAILY #30 tablet.dr 05/04/15 [Rx] Cinacalcet HCl [Sensipar] 60 mg PO DAILY 04/06/16 [History] Sevelamer [Renvela] 1,600 mg PO TIDWM 04/06/16 [History] HydrALAZINE 50 mg PO Q8HR #90 tablet 07/08/16 [Rx] Metoprolol XL (24 HR) Succ [Toprol Xl] 100 mg PO DAILY #90 tab.er.24h 07/08/16 [ Rx] Furosemide [Lasix] 40 mg PO SUTUTHSA 08/12/16 [History] Albuterol Sulfate [Albuterol Inhaler] 2 puff IH Q4HR #1 hfa.aer.ad 08/19/16 [Rx] Fluticasone/Salmeterol [Advair 250-50 Diskus] 1 puff IH Q12H 09/30/16 [History] Ipratropium/Albuterol Neb [Duoneb] 3 ml IH Q6HR 09/30/16 [History] Allergies No Known Allergies Allergy (Verified 08/18/16 18:27) Review of Systems All Systems: reviewed and no additional remarkable complaints except as stated Exam - Vital Signs Vital signs: Initial Vital Signs Temp Pulse Resp BP Pulse Ox 98.1 F 91 18 161/110 94 L 09/30/16 14:47 09/30/16 14:47 09/30/16 14:47 09/30/16 14:47 09/30/16 14:47 Vital Signs - Last 8 Hours Temp Pulse Resp BP Pulse Ox 10/01/16 07:50 16 97 10/01/16 07:21 97.8 F 84 17 131/72 94 L 10/01/16 04:11 97.8 F 75 18 143/91 92 L 10/01/16 03:59 20 94 L 10/01/16 00:43 98.0 F 90 20 148/91 94 L - General Appearance General appearance: well-developed, well-nourished, appears started age EENT: ATNC, PERRL, mucous membranes moist Neck: supple Respiratory: course breath sounds Cardiology: edema, regular rate, regular rhythm, normal S1, normal S2 - Dialysis Access Dialysis Vascular Access: Arteriovenous Fistula thrill: Yes bruit: Yes Gastrointestinal: normoactive bowel sounds, no tenderness, no guarding, obese Integumentary: no rash, warm and dry Neurologic: no focal deficit, no asterixis, alert and oriented x3 Musculoskeletal: no deformities, no erythema, no cyanosis Psychiatric: mood/affect appropriate, cooperative Results - Lab Results 10/01/16 04:02 10/01/16 04:02 Most recent lab results Calcium 9.9 mg/dL (8.6-10.8) 10/01/16 04:02 Phosphorus 7.8 mg/dL (2.3-4.7) H 10/01/16 04:02 Magnesium 2.1 mg/dL (1.6-2.6) 10/01/16 04:02 I reviewed the above autogenerated data, including labs, meds, vitals, imaging and outside [facility] med records including dialysis run data. Consult Discharge Plan - Plan Referrals: NO,PCP [Primary Care Provider] -
[2016-10-01] MEDS ORDERED: Furosemide 20 MG TABLET PO SCH (09:00)
[2016-10-01] MEDS ORDERED: Ipratropium/Albuterol Neb 3 ML IH PRN (12:35)
--- NOTE | 2016-10-01 15:13 | Internal Med Progress Note ---
Date of Encounter: 10/01/16 Time of Encounter: 15:11 - Assessment and plan (1) Pleural effusion Current Visit: Yes Status: Acute Assessment and plan: Recurrent right-sided pleural effusion, uncertain etiology but most likely related to volume and pressure changes due to underlying ESRD on hemodialysis and CHF. Patient is also noted to be noncompliant with medical appointments and hemodialysis sessions. Feels much better currently status post right-sided thoracentesis with removal of almost 2000 mL. Given his multiple readmissions with similar complaints and history of noncompliance, case discussed with CT surgery for possible pleurodesis, will follow-up recommendations. (2) CHF (congestive heart failure) Current Visit: Yes Status: Chronic Assessment and plan: Continue diuretics and beta blockers and supplemental oxygen as needed. Qualifiers: Congestive heart failure type: combined Congestive heart failure chronicity : chronic Qualified Code(s): I50.42 - Chronic combined systolic (congestive) and diastolic (congestive) heart failure (3) Cigarette smoker Current Visit: Yes Status: Chronic (4) ESRD (end stage renal disease) on dialysis Current Visit: Yes Status: Chronic Assessment and plan: Nephrology consulted for continued hemodialysis needs. Next Hemodialysis session tomorrow. (5) Hypertension Current Visit: Yes Status: Chronic Qualifiers: Hypertension type: essential hypertension Qualified Code(s): I10 - Essential (primary) hypertension - Subjective Interval history: Reports feeling very tired. Much improved shortness of breath and orthopnea. Feels very well after thoracentesis. - Constitutional Vitals: Temp Pulse Resp BP Pulse Ox 97.8 F 84 16 131/72 97 10/01/16 07:21 10/01/16 07:21 10/01/16 07:50 10/01/16 07:21 10/01/16 07:50 General appearance: Present: A&O X 3, obese, answers questions appropriately - Head Head exam: Present: atraumatic, normocephalic - Neck Neck exam general surgery: Present: supple, trachea midline. Absent: lymphadenopathy - Respiratory Respiratory exam: Present: CTAB. Absent: accessory muscle use, rales, rhonchi, wheezes - Cardiovascular Cardiovascular exam: Present: RRR, +S1, +S2. Absent: diastolic murmur, gallop, rubs, systolic murmur - GI/Abdominal GI/Abdominal exam: Present: normal bowel sounds, soft, no peritoneal signs. Absent: distended, tenderness - Extremities Exam Extremities exam: Present: pedal edema, warm, radial pulses palpable and symetrical. Absent: calf tenderness, cyanotic - Neurological Exam Neurological exam: Present: CN II-XII intact, oriented X3, no focal deficits. Absent: pronater drift, facial droop, speech deficit - Skin Skin exam: Present: dry, intact Internal Medicine: Result - Labs CBC & Chem 7: 10/01/16 04:02 10/01/16 04:02 Labs: Short CBC 10/01/16 Range/Units 04:02 WBC 4.7 (4.3-11.1) K/mcL Hgb 12.4 L (12.9-16.9) g/dL Hct 37.7 (37.5-50.1) % Plt Count 124 L (140-400) K/mcL Neutrophils # 2.8 (1.6-8.9) K/mcL BMP 10/01/16 04:02 Sodium 138 Potassium 4.2 Chloride 96 L Carbon Dioxide 30 H BUN 36 H Creatinine 9.29 H Glucose 104 H Calcium 9.9 - Impressions Impressions Thoracentesis Ultrasound 10/01/16 00:00 IMPRESSION: Successful ultrasound guided thoracentesis. D/ / Tri Truong MD / Tri Truong MD Interpreting Provider: Tri Truong MD Chest X-Ray 10/01/16 11:27 IMPRESSION: Negative for pneumothorax status post thoracentesis D/ / Lui Lezama MD / Lui Lezama MD Interpreting Provider: Lui Lezama MD Consult Discharge Plan - Plan Referrals: NO,PCP [Primary Care Provider] -
--- NOTE | 2016-10-01 18:26 | Electrocardiograph Report ---
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
[2016-10-01] MEDS ORDERED: Temazepam 15 MG CAPSULE PO ONE (22:06)
[2016-10-02 06:15] LABS: Basophils % 0.7 %; Eosinophils # 0.3 K/mcL (0.0-0.6); Eosinophils % 5.6 %; Hematocrit 37.7 % (37.5-50.1); Hemoglobin 12.4 g/dL (12.9-16.9); Immature Granulocytes % 0.3 % (0-4); Lymphocytes # 1.3 K/mcL (0.6-4.6); Lymphocytes % 21.1 %; Mean Corpuscular HGB Conc 32.9 g/dL (31.6-35.5); Mean Corpuscular Hemoglobin 30.7 pg (28.0-33.3); Mean Corpuscular Volume 93.3 fL (83.0-100.0); Mean Platelet Volume 10.5 fL (9.4-12.4); Monocytes # 0.5 K/mcL (0.0-1.3); Monocytes % 8.4 %; Neutrophils # 3.8 K/mcL (1.6-8.9); Platelet Count 129 K/mcL (140-400); Red Blood Count 4.04 M/mcL (4.19-5.50); Red Cell Distribution Width 14.2 % (11.5-14.5); Segmented Neutrophils % 63.9 %
[2016-10-02] MEDS: hydrALAZINE 25 MG TABLET PO SCH (06:19)
[2016-10-02] MEDS: *HR* Heparin 5,000 UNIT/ML VIAL SQ SCH (06:21)
[2016-10-02 06:29] LABS: Calcium 9.3 mg/dL (8.6-10.8); Phosphorous 8.1 mg/dL (2.3-4.7); Potassium 4.4 mEq/L (3.5-4.5)
[2016-10-02] MEDS: Aspirin Enteric Coated 81 MG Tablet PO SCH (07:58)
[2016-10-02] MEDS: Metoprolol XL (24 HR) Succ 50 MG TAB.ER.24H PO SCH (08:04)
[2016-10-02] MEDS ORDERED: 0.9 % Sodium Chloride 250 ML IV PRN (08:24)
--- NOTE | 2016-10-02 08:29 | Nephrology Progress Note ---
Date of Encounter: 10/03/16 Time of Encounter: 11:00 - Assessment and Plan (1) ESRD (end stage renal disease) on dialysis Status: Chronic HD today for clearance and volume. I reviewed his Dry Weight in the [facility] med records, which is listed as 129.5kg, but today will challenge him for a goal UF of 6kg over 4hr of HD. Hyperphosphatemia: continue sevelemr and ensure he has a low Phos diet. Next HD is planned for Friday, if he were still hospitalized. From a nephro perspective he is okay to d/c and dialysis could be continued as an outpt at [facility] in [place], [place]. Pleural effusion, as per primary. Anemia: goal Hgb is 10-11 (2) Pleural effusion Status: Acute (3) Hypertension Status: Chronic Qualifiers: Hypertension type: essential hypertension Qualified Code(s): I10 - Essential (primary) hypertension Subjective Principal diagnosis: t-1 Interval history: Pt was s/e earlier in the day. He did not affirm N/V/D or uremic complaints. He was seen on HD. Objective - Vital Signs Vital signs: Vital Signs Temp Pulse Resp BP Pulse Ox 10/02/16 07:45 97.8 F 91 18 117/71 97 10/02/16 04:29 97.3 F L 69 16 135/87 96 10/02/16 00:26 97.4 F L 76 16 139/92 96 10/01/16 22:40 16 98 10/01/16 19:38 97.6 F 70 16 118/77 98 10/01/16 15:30 98.0 F 73 16 127/79 92 L Intake and Output 10/01/16 10/02/16 10/02/16 23:59 07:59 15:59 Intake Total 120 / 120 Balance 120 / 120 Intake: Oral 120 / 120 Other: Meal Dinner Percent of Meal Consumed 10% Weight 132.4 kg Patient Weight 10/02/16 23:59 Weight 132.4 kg - General Appearance General appearance: Present: well-developed, well-nourished, appears started age EENT: Present: ATNC, PERRL, mucous membranes moist Neck: Present: supple Respiratory: Present: clear Cardiology: Present: edema, regular rate, regular rhythm, normal S1, normal S2 Dialysis Vascular Access: Arteriovenous Fistula thrill: Yes bruit: Yes Gastrointestinal: Present: normoactive bowel sounds, no tenderness, no guarding Integumentary: Present: warm and dry Neurologic: Present: no focal deficit, no asterixis, alert and oriented x3 Musculoskeletal: Present: no deformities, no erythema, no cyanosis Psychiatric: Present: mood/affect appropriate, cooperative - Lab 10/02/16 05:54 10/02/16 05:54 Most recent lab results Calcium 9.3 mg/dL (8.6-10.8) 10/02/16 05:54 Phosphorus 8.1 mg/dL (2.3-4.7) H 10/02/16 05:54 Magnesium 2.1 mg/dL (1.6-2.6) 10/01/16 04:02 Consult Discharge Plan - Plan Instructions: Heart Failure (DC), Acute Respiratory Distress Syndrome (DC) Additional Instructions: F/up with as scheduled F/up for HD- MWF Referrals: NO,PCP [Primary Care Provider] -
--- NOTE | 2016-10-02 09:35 | Cardiothoracic Consult Note ---
Date of Encounter: 10/02/16 Time of Encounter: 09:34 - History of Present Illness Consult date: 10/01/16 Requesting physician: Mima De Jesus Consult reason: Recurrent right pleural effusion. Chief complaint: Shortness of breath History of present illness: Mr. Snyder is a 31 year old Past Med Surg Social Fam HX - Past Medical History Medical history: cardiomyopathy, CHF, dialysis, hypertension, renal disease Psychiatric history: depression - Past Surgical History Surgical History: orthopedic, other, vascular surgery - Social History Smoking Status: Current every day smoker Packs per day: <1 Smokeless Tobacco Status: No Alcohol use: none Drug use: none - Family History Mother Living Status: Still Living Hx Family Endocrine Disorder: Yes (DM) Hx Family Neurologic Disorders: Yes (stroke) Father Living Status: Still Living Hx Family Cardiac Disorders: Yes (CAD) Hx Family Respiratory Disorders: No Hx Family Cancer: No Hx Family GI Disorders: No Hx Family Endocrine Disorder: Yes (Diabetes) Hx Family Neuromuscular Disorders: No Hx Family Neurologic Disorders: No Hx Family HEENT Disorders: No Hx Family Autoimmune Disorders: No Medications and Allergies Aspirin Enteric Coated [Aspirin EC] 81 mg PO DAILY #30 tablet.dr 05/04/15 [Rx] Cinacalcet HCl [Sensipar] 60 mg PO DAILY 04/06/16 [History] Sevelamer [Renvela] 1,600 mg PO TIDWM 04/06/16 [History] HydrALAZINE 50 mg PO Q8HR #90 tablet 07/08/16 [Rx] Metoprolol XL (24 HR) Succ [Toprol Xl] 100 mg PO DAILY #90 tab.er.24h 07/08/16 [ Rx] Furosemide [Lasix] 40 mg PO SUTUTHSA 08/12/16 [History] Albuterol Sulfate [Albuterol Inhaler] 2 puff IH Q4HR #1 hfa.aer.ad 08/19/16 [Rx] Fluticasone/Salmeterol [Advair 250-50 Diskus] 1 puff IH Q12H 09/30/16 [History] Ipratropium/Albuterol Neb [Duoneb] 3 ml IH Q6HR 09/30/16 [History] Allergies No Known Allergies Allergy (Verified 08/18/16 18:27) All Systems Review: A 10-system review of systems was performed and is negative for pertinent findings except as documented above in the HPI. Physical Examination Vital Signs, Last 4 Hours Temp Pulse Resp BP Pulse Ox 10/02/16 07:45 97.8 F 91 18 117/71 97 Results 10/02/16 05:54 10/02/16 05:54 Lab Results, Last 24 hours 10/02/16 10/02/16 05:54 05:54 WBC 5.9 Hgb 12.4 L Hct 37.7 Plt Count 129 L Sodium 138 Potassium 4.4 Chloride 97 L Carbon Dioxide 28 BUN 51 H D Creatinine 10.79 H Glucose 101 H Calcium 9.3 Consult Discharge Plan - Plan Referrals: NO,PCP [Primary Care Provider] -
--- NOTE | 2016-10-02 09:40 | Cardiothoracic Consult Note ---
Date of Encounter: 10/02/16 Time of Encounter: 09:38 Assessment and Plan (1) Pleural effusion Current Visit: Yes Status: Acute The patient is a 31-year-old hypertensive man with cardiomyopathy and end-stage renal disease requiring hemodialysis. The patient has had multiple admissions for shortness of breath due to recurrent right pleural effusion. The patient states that he is getting undergone at least 6 thoracenteses during the last year with temporary resolution of the symptoms. The most recent thoracentesis was performed on August 17, 2016. The post procedure chest x-ray showed residual compressive atelectasis of the right lung and a follow-up chest x-ray performed approximately 10 days later showed a similar appearance. Since the process is long-standing, the patient may have developed a pleural peel which will not allow complete reexpansion of the lung. I have discussed possible right chest tube placement with the patient in an attempt to completely drain the pleural effusion and allow the lung to reexpand. If there is complete reexpansion of the right lung a talc pleurodesis could be considered. If, however, the patient has incomplete reexpansion of the right lung a talc pleurodesis will not be effective. At this point I would add the patient evaluated for possible Pleurx catheter placement. Given his cardiomyopathy with an LVEF 20-25% the patient is not a good operative candidate and probably would not tolerate a thoracotomy with decortication well. Presently, the patient is unwilling to commit to the chest tube insertion and I will rediscuss the options with the patient after his dialysis session. The assessment and plan as outlined above was discussed with the patient and/or family members who expressed understanding and agreement. All questions were answered. - History of Present Illness Consult date: 10/01/16 Requesting physician: Mima De Jesus Consult reason: Recurrent left pleural effusion. Chief complaint: Shortness of breath History of present illness: Mr. Snyder is a 31 year old hypertensive man with congestive heart failure and end-stage renal disease requiring hemodialysis. The patient is had recurrent right pleural effusions during the last 8-12 months and has undergone multiple thoracenteses. The patient states that each thoracentesis session has resulted in the removal of approximately 2000 mL of clear yellow fluid and his respiratory symptoms resolve. He was admitted to [facility] on Friday, September 30, 2016 when he complained of shortness of breath during his hemodialysis therapy. A chest x-ray performed in the emergency department revealed a recurrent right pleural effusion. The patient was admitted for treatment of the recurrent right pleural effusion. Past Med Surg Social Fam HX - Past Medical History Medical history: cardiomyopathy, CHF, dialysis, hypertension, renal disease Psychiatric history: depression - Past Surgical History Surgical History: orthopedic, other, vascular surgery (AV fistula formation) - Social History Smoking Status: Current every day smoker Packs per day: <1 Smokeless Tobacco Status: No Alcohol use: none Drug use: none Occupational status: unemployed Current living situation: Home - Independent Activity Level: Independent ambulation Recent Out of Country Travel Within the Last 8 Weeks: No Exposure or Possible Exposure to Illness During Travel: No - Family History Mother Living Status: Still Living Hx Family Endocrine Disorder: Yes (DM) Hx Family Neurologic Disorders: Yes (stroke) Father Living Status: Still Living Hx Family Cardiac Disorders: Yes (CAD) Hx Family Respiratory Disorders: No Hx Family Cancer: No Hx Family GI Disorders: No Hx Family Endocrine Disorder: Yes (Diabetes) Hx Family Neuromuscular Disorders: No Hx Family Neurologic Disorders: No Hx Family HEENT Disorders: No Hx Family Autoimmune Disorders: No Medications and Allergies Aspirin Enteric Coated [Aspirin EC] 81 mg PO DAILY #30 tablet.dr 05/04/15 [Rx] Cinacalcet HCl [Sensipar] 60 mg PO DAILY 04/06/16 [History] Sevelamer [Renvela] 1,600 mg PO TIDWM 04/06/16 [History] HydrALAZINE 50 mg PO Q8HR #90 tablet 07/08/16 [Rx] Metoprolol XL (24 HR) Succ [Toprol Xl] 100 mg PO DAILY #90 tab.er.24h 07/08/16 [ Rx] Furosemide [Lasix] 40 mg PO SUTUTHSA 08/12/16 [History] Albuterol Sulfate [Albuterol Inhaler] 2 puff IH Q4HR #1 hfa.aer.ad 08/19/16 [Rx] Fluticasone/Salmeterol [Advair 250-50 Diskus] 1 puff IH Q12H 09/30/16 [History] Ipratropium/Albuterol Neb [Duoneb] 3 ml IH Q6HR 09/30/16 [History] Allergies No Known Allergies Allergy (Verified 08/18/16 18:27) All Systems Review: A 10-system review of systems was performed and is negative for pertinent findings except as documented above in the HPI. Physical Examination Vital Signs, Last 4 Hours Temp Pulse Resp BP Pulse Ox 10/02/16 07:45 97.8 F 91 18 117/71 97 General: Conversant, No Apparent Distress HEENT: Atraumatic, Normocephaly, Trachea midline Neck: No JVD, Normal carotid pulses Cardiac: Reg Rate and Rhythm Lungs: Normal Breath Sounds (F lung stehpens.), Decreased breath sounds (Right lung stephens.), Dullness to percussion (Right hemithorax) Neuro: Alert and responsive, No focal deficits noted Vascular: Normal capillary refill Skin: No rashes noted on visualized skin Musculoskeletal: No Chest Wall Tenderness Extremities: No Clubbing, No Cyanosis, No Edema Results 10/02/16 05:54 10/02/16 05:54 Lab Results, Last 24 hours 10/02/16 10/02/16 05:54 05:54 WBC 5.9 Hgb 12.4 L Hct 37.7 Plt Count 129 L Sodium 138 Potassium 4.4 Chloride 97 L Carbon Dioxide 28 BUN 51 H D Creatinine 10.79 H Glucose 101 H Calcium 9.3 - Imaging Chest Xray: image reviewed (Moderate to large right pleural effusion.) Consult Discharge Plan - Plan Referrals: NO,PCP [Primary Care Provider] -
[2016-10-02] MEDS ORDERED: *HR* Heparin 5,000 UNIT/ML VIAL ONE (10:04)
[2016-10-02] MEDS: Budesonide/Formoterol 80/4.5 MDI IH SCH (10:18)
[2016-10-02] MEDS ORDERED: *HR* OxyCODONE/APAP 5/325 TABLET PO ONE (11:21)
[2016-10-02 13:55] VITALS: BP 151/109
--- NOTE | 2016-10-02 14:37 | Discharge Summary ---
Date of Encounter: 10/02/16 Time of Encounter: 14:35 - Discharge Diagnosis (1) Pleural effusion Priority: Primary Status: Acute (2) CHF (congestive heart failure) Priority: Secondary Status: Chronic Qualifiers: Congestive heart failure type: combined Congestive heart failure chronicity : chronic Qualified Code(s): I50.42 - Chronic combined systolic (congestive) and diastolic (congestive) heart failure (3) Cigarette smoker Priority: Secondary Status: Chronic (4) ESRD (end stage renal disease) on dialysis Priority: Secondary Status: Chronic (5) Hypertension Priority: Secondary Status: Chronic Qualifiers: Hypertension type: essential hypertension Qualified Code(s): I10 - Essential (primary) hypertension - Discharge Medications Home Medications: Aspirin Enteric Coated [Aspirin EC] 81 mg PO DAILY #30 tablet.dr 05/04/15 [Rx] Cinacalcet HCl [Sensipar] 60 mg PO DAILY 04/06/16 [History] Sevelamer [Renvela] 1,600 mg PO TIDWM 04/06/16 [History] HydrALAZINE 50 mg PO Q8HR #90 tablet 07/08/16 [Rx] Metoprolol XL (24 HR) Succ [Toprol Xl] 100 mg PO DAILY #90 tab.er.24h 07/08/16 [ Rx] Furosemide [Lasix] 40 mg PO SUTUTHSA 08/12/16 [History] Albuterol Sulfate [Albuterol Inhaler] 2 puff IH Q4HR #1 hfa.aer.ad 08/19/16 [Rx] Fluticasone/Salmeterol [Advair 250-50 Diskus] 1 puff IH Q12H 09/30/16 [History] Ipratropium/Albuterol Neb [Duoneb] 3 ml IH Q6HR 09/30/16 [History] Allergies/Adverse Reactions: Allergies No Known Allergies Allergy (Verified 08/18/16 18:27) Procedures/tests Complete & Pending: Procedures Performed prior 72 hours Category Date Time Status IR thoracentesis ultrasound [IR] Routine IR 10/01/16 Completed Date of admission: 09/30/16 16:54 Primary care physician: PCP NO Consults: 09/30/16 21:19 Consult to Nephrology [CONS] Routine Consulting Provider: [facility] Amelia CHOI/JEANETTE Reason for Consult: ESRD On HD Call Completed: Yes 09/30/16 21:20 Consult to Interventional Radiology [CONS] Routine Consulting Provider: Radiology Dave Collele Reason for Consult: right pleural effusion needs thoracentesis Call Completed: Yes 10/01/16 15:10 Consult to Cardiothoracic Surgery [CONS] Routine Consulting Provider: Cardiothoracic Surgery Amelia Reason for Consult: Recurrent right pleural effusion Call Completed: Yes 10/02/16 08:30 Consult to Dialysis [CONS] ONCE Discharging clinician: Melania Rey Anticipated date of discharge: 10/02/16 - Patient Status Disposition: Home, Self-Care Condition: Good Functional capacity at discharge: independent ambulation Overall status at discharge: patient is back to baseline - Discharge Instructions Instructions: Heart Failure (DC), Acute Respiratory Distress Syndrome (DC) Follow Up With: NO,PCP [Primary Care Provider] - Additional Instructions: F/up with as scheduled F/up for HD- MWF - Diet and Activity Activity: resume usual activities as tolerated Diet: low fat, low cholesterol, low salt diet, other (renal diet) Hospital course: Mr. Snyder is a 31 year old male with history of hypertension and end-stage renal disease on hemodialysis, was admitted with worsening shortness of breath after dialysis. He was noted to have right-sided pleural effusion, which is recurrent and underwent right-sided thoracentesis with significant improvement in respiratory status and symptoms. He is medically stable however known to be noncompliant and given his recurrent admissions with similar complaints, cardiothoracic surgery has been consulted for further management. Imaging studies have been reviewed and patient was recommended to undergo chest replacement to allow complete drainage of pleural effusion and reexpansion of right lung after which talc pleurodesis could be considered. However, patient is reluctant to undergo any further treatment at this time and requests to be discharged. He strongly recommended to keep his outpatient pulmonology appointment at the end of this month to discuss further regarding his recurrent pleural effusion and he verbalized understanding. - Time Spent with Patient Total time spent providing and/or coordinating discharge services: Less than 30 minutes (45) - Constitutional Vitals: Temp Pulse Resp BP Pulse Ox 97.8 F 91 14 151/109 97 10/02/16 13:54 10/02/16 07:45 10/02/16 13:54 10/02/16 13:54 10/02/16 07:45 General appearance: Present: A&O X 3, obese, answers questions appropriately - Respiratory Respiratory exam: Present: CTAB. Absent: accessory muscle use, rales, rhonchi, wheezes - Cardiovascular Cardiovascular exam: Present: RRR, +S1 (hyperdynamic), +S2. Absent: diastolic murmur, gallop, rubs, systolic murmur
== END 2016-10-02 15:41 | disposition home or self-care (01) ==
LOC: 2ANU 14:46 → EMEROO 14:46 → SUATTDRO 16:54 → 2ANU 17:04
PROVIDERS: ADMIT Internal Medicine; ATTEND Internal Medicine

== ENCOUNTER 2016-10-09 18:33 | Inpatient (IN) ==
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
[2016-10-09 19:43] LABS: Basophils % 0.6 %; Eosinophils # 0.2 K/mcL (0.0-0.6); Eosinophils % 3.8 %; Hematocrit 39.5 % (37.5-50.1); Hemoglobin 12.9 g/dL (12.9-16.9); Immature Granulocytes % 0.3 % (0-4); Lymphocytes # 1.4 K/mcL (0.6-4.6); Lymphocytes % 21.9 %; Mean Corpuscular HGB Conc 32.7 g/dL (31.6-35.5); Mean Corpuscular Volume 91.9 fL (83.0-100.0); Monocytes # 0.5 K/mcL (0.0-1.3); Monocytes % 8.3 %; Neutrophils # 4.2 K/mcL (1.6-8.9); Platelet Count 146 K/mcL (140-400); Segmented Neutrophils % 65.1 %
[2016-10-09 19:55] LABS: INR 1.2; Potassium 4.5 mEq/L (3.5-4.5); Prothrombin Time 13.3 Seconds (9.4-12.1)
[2016-10-09 19:58] LABS: Activated Partial Thrombo Time 36.3 Seconds (26.0-36.0)
[2016-10-09] MEDS ORDERED: *HR* HYDROmorphone (PF) 1 MG/ML SYRINGE IVP ONE (20:45)
[2016-10-09] MEDS ORDERED: Ondansetron 4 MG/2 ML VIAL IVP ONE (20:45)
[2016-10-10] MEDS ORDERED: Albuterol 2.5 MG/3 ML NEBULIZER IH PRN (01:44)
[2016-10-10] MEDS ORDERED: Naloxone 0.4 MG/ML INJ IVP PRN (01:49)
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
[2016-10-10] MEDS: Ipratropium/Albuterol Neb 3 ML IH SCH ×2 (04:34→10:51)
[2016-10-10] MEDS: *HR* Heparin 5,000 UNIT/ML VIAL SQ SCH ×2 (06:01→17:31)
[2016-10-10] MEDS: hydrALAZINE 25 MG TABLET PO SCH ×3 (06:02→22:01)
[2016-10-10] MEDS ORDERED: 0.9 % Sodium Chloride 250 ML IV PRN (08:45)
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
[2016-10-10] MEDS: Budesonide/Formoterol 80/4.5 MDI IH SCH ×2 (10:51→22:47)
[2016-10-10] MEDS: Aspirin Enteric Coated 81 MG Tablet PO SCH (11:38)
[2016-10-10] MEDS ORDERED: *HR* HYDROmorphone (PF) 1 MG/ML SYRINGE IVP ONE (14:36)
[2016-10-10] MEDS: Metoprolol XL (24 HR) Succ 50 MG TAB.ER.24H PO SCH (15:01)
[2016-10-10] MEDS: Furosemide 40 MG TABLET PO SCH (15:02)
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
[2016-10-10] MEDS: Acetaminophen 325 MG TABLET PO PRN (19:32)
[2016-10-10] MEDS ORDERED: Nicotine 14 MG PATCH.TD24 TD SCH (20:15)
[2016-10-10] MEDS ORDERED: Benzocaine 20% 9 GM GEL..GRAM. TP PRN (21:31)
[2016-10-10] MEDS ORDERED: Ibuprofen 600 MG TABLET PO ONE (21:31)
[2016-10-10] MEDS: Nicotine 14 MG PATCH.TD24 TD SCH (22:01)
[2016-10-11] MEDS: *HR* Heparin 5,000 UNIT/ML VIAL SQ SCH ×2 (06:10→19:53)
[2016-10-11] MEDS: Acetaminophen 325 MG TABLET PO PRN ×3 (06:12→22:54)
[2016-10-11] MEDS: Aspirin Enteric Coated 81 MG Tablet PO SCH (06:12)
[2016-10-11 06:17] LABS: Basophils # 0.1 K/mcL (0.0-0.2); Basophils % 0.9 %; Eosinophils # 0.2 K/mcL (0.0-0.6); Eosinophils % 4.5 %; Hematocrit 39.4 % (37.5-50.1); Hemoglobin 12.6 g/dL (12.9-16.9); Immature Granulocytes % 0.4 % (0-4); Lymphocytes # 1.2 K/mcL (0.6-4.6); Lymphocytes % 22.9 %; Mean Corpuscular Volume 93.8 fL (83.0-100.0); Mean Platelet Volume 10.4 fL (9.4-12.4); Monocytes # 0.5 K/mcL (0.0-1.3); Monocytes % 10.1 %; Neutrophils # 3.3 K/mcL (1.6-8.9); Platelet Count 122 K/mcL (140-400); Segmented Neutrophils % 61.2 %
[2016-10-11 06:30] LABS: Calcium 9.2 mg/dL (8.6-10.8)
[2016-10-11] MEDS: Nicotine 14 MG PATCH.TD24 TD SCH (08:10)
[2016-10-11] MEDS: Ondansetron 4 MG/2 ML VIAL IVP PRN (09:07)
[2016-10-11] MEDS: Budesonide/Formoterol 80/4.5 MDI IH SCH ×2 (10:49→22:59)
--- NOTE | 2016-10-11 11:23 | Nephrology Progress Note ---
Date of Encounter: 10/11/16 Time of Encounter: 11:00 - Assessment and Plan (1) ESRD (end stage renal disease) on dialysis Current Visit: Yes Status: Chronic HD planned today again with goal UF of 4-5kg to reestablish back on rountine schedule of m-w-f Fluid restriction per ESRD protocol advised (2) Fluid overload Current Visit: Yes Status: Acute Improved after HD yesterday, will bull UF of 4-5kg as tolerated Qualifiers: Qualified Code(s): E87.70 - Fluid overload, unspecified (3) Pleural effusion Current Visit: No Status: Acute s/p thoracentesis. Pleurodesis planned soon (4) Hyperkalemia Current Visit: No Status: Acute Mildly elevated potassium at 5, typical for ESRD pt, no intervention except dialysis needed Subjective Interval history: Pt seen and examined feeling better after thoracentesis and HD yesterday. No new complaints. Objective - Vital Signs Vital signs: Vital Signs Temp Pulse Resp BP Pulse Ox 10/11/16 09:07 97.3 F L 64 16 125/90 94 L 10/11/16 07:38 96 10/11/16 04:38 97.6 F 75 16 106/73 96 10/11/16 00:27 97.7 F 81 16 103/8 96 10/10/16 22:48 16 96 10/10/16 20:29 97.7 F 75 16 125/78 92 L 10/10/16 16:27 98.1 F 75 16 135/89 96 10/10/16 13:45 137/83 10/10/16 13:30 158/84 10/10/16 13:15 162/78 10/10/16 13:00 161/80 10/10/16 12:45 123/73 10/10/16 12:30 112/59 10/10/16 12:15 139/83 10/10/16 12:01 22 137/83 10/10/16 12:00 131/90 10/10/16 11:45 129/76 10/10/16 11:30 143/91 10/10/16 11:15 138/90 Intake and Output 10/10/16 10/11/16 10/11/16 23:59 07:59 15:59 Intake Total 240 / 240 Output Total 1999 Balance -1999 240 / 240 Intake: Oral 240 / 240 Output: Thoracentesis 1999 Other: Meal Breakfast Percent of Meal Consumed 100% Weight 130 kg Patient Weight 10/11/16 23:59 Weight 130 kg - General Appearance Exam: NAD EENT: Present: ATNC, mucous membranes moist Neck: Present: no JVD, supple Additional Comments: good areation bilat with slight decrease at bases Cardiology: Present: edema (trace LE bilat), normal S1, normal S2 Dialysis Vascular Access: Arteriovenous Fistula thrill: Yes bruit: Yes Gastrointestinal: Present: no tenderness, no guarding Integumentary: Present: warm and dry Neurologic: Present: no focal deficit Musculoskeletal: Present: no deformities Psychiatric: Present: mood/affect appropriate - Lab 10/11/16 05:48 10/12/16 08:44 Most recent lab results Calcium 9.2 mg/dL (8.6-10.8) 10/11/16 05:48 Consult Discharge Plan - Plan Instructions: Tramadol (By mouth), Heart Failure (DC), End-Stage Kidney Disease (DC) Referrals: Roz Fisher MD [Partnered Physician] - (patient follows up in HD and uses them as a PCP) Prescriptions: Tramadol HCl [Ultram] 50 mg PO BID PRN #10 tab PRN Reason: Severe Pain
[2016-10-11 12:07] LABS: Hepatitis B Surface Antigen Nonreactive (Nonreactive)
[2016-10-11 12:13] LABS: Hepatitis B Surface Antibody 16.79 mIU/mL
[2016-10-11] MEDS: hydrALAZINE 25 MG TABLET PO SCH ×2 (13:48→17:12)
[2016-10-11] MEDS ORDERED: traMADol 50 MG TABLET PO ONE (14:15)
[2016-10-11] MEDS ORDERED: 0.9 % Sodium Chloride 250 ML IV PRN (15:22)
--- NOTE | 2016-10-11 16:07 | Electrocardiograph Report ---
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
[2016-10-11] MEDS: Metoprolol XL (24 HR) Succ 50 MG TAB.ER.24H PO SCH (19:12)
[2016-10-12] MEDS ORDERED: *HR* OxyCODONE Immed Rel 5 MG TABLET PO ONE (02:48)
[2016-10-12] MEDS: hydrALAZINE 25 MG TABLET PO SCH ×2 (03:52→08:29)
[2016-10-12] MEDS: *HR* Heparin 5,000 UNIT/ML VIAL SQ SCH (05:40)
[2016-10-12 07:17] VITALS: BP 142/91
[2016-10-12] MEDS: Budesonide/Formoterol 80/4.5 MDI IH SCH (07:35)
[2016-10-12] MEDS ORDERED: *HR* HYDROmorphone (PF) 1 MG/ML SYRINGE IVP ONE (08:15)
[2016-10-12] MEDS: Metoprolol XL (24 HR) Succ 50 MG TAB.ER.24H PO SCH (08:29)
[2016-10-12] MEDS: Aspirin Enteric Coated 81 MG Tablet PO SCH (08:29)
[2016-10-12] MEDS: Nicotine 14 MG PATCH.TD24 TD SCH (08:30)
[2016-10-12] MEDS: Furosemide 40 MG TABLET PO SCH (08:39)
--- NOTE | 2016-10-12 09:33 | Discharge Summary ---
Date of Encounter: 10/12/16 Time of Encounter: 09:15 - Discharge Diagnosis (1) Acute on chronic systolic heart failure Priority: Primary Status: Acute (2) Pleural effusion Priority: Primary Status: Acute (3) Tobacco abuse Priority: Secondary Status: Chronic (4) Anemia in CKD (chronic kidney disease) Priority: Secondary Status: Chronic (5) ESRD (end stage renal disease) on dialysis Priority: Secondary Status: Chronic (6) Hypertension Priority: Secondary Status: Chronic Qualifiers: Qualified Code(s): I15.1 - Hypertension secondary to other renal disorders; N28.89 - Other specified disorders of kidney and ureter (7) Neurogenic bladder Priority: Secondary Status: Chronic (8) Non-ischemic cardiomyopathy Priority: Secondary Status: Chronic (9) COPD (chronic obstructive pulmonary disease) Priority: Secondary Status: Chronic Qualifiers: Qualified Code(s): J44.9 - Chronic obstructive pulmonary disease, unspecified - Discharge Medications Prescriptions: Tramadol HCl [Ultram] 50 mg PO BID PRN #10 tab PRN Reason: Severe Pain Home Medications: Aspirin Enteric Coated [Aspirin EC] 81 mg PO DAILY #30 tablet.dr 05/04/15 [Rx] Cinacalcet HCl [Sensipar] 60 mg PO DAILY 04/06/16 [History] Sevelamer [Renvela] 1,600 mg PO TIDWM 04/06/16 [History] HydrALAZINE 50 mg PO Q8HR #90 tablet 07/08/16 [Rx] Metoprolol XL (24 HR) Succ [Toprol Xl] 100 mg PO DAILY #90 tab.er.24h 07/08/16 [ Rx] Furosemide [Lasix] 40 mg PO SUTUTHSA 08/12/16 [History] Albuterol Sulfate [Albuterol Inhaler] 2 puff IH Q4HR #1 hfa.aer.ad 08/19/16 [Rx] Fluticasone/Salmeterol [Advair 250-50 Diskus] 1 puff IH Q12H 09/30/16 [History] Ipratropium/Albuterol Neb [Duoneb] 3 ml IH Q6HR 09/30/16 [History] Tramadol HCl [Ultram] 50 mg PO BID PRN #10 tab 10/12/16 [Rx] Allergies/Adverse Reactions: Allergies No Known Allergies Allergy (Verified 08/18/16 18:27) Procedures/tests Complete & Pending: Procedures Performed prior 72 hours Category Date Time Status IR thoracentesis ultrasound [IR] Routine IR 10/10/16 Completed Date of admission: 10/10/16 03:02 Primary care physician: PCP NO Consults: 10/10/16 09:00 Consult to Dialysis [CONS] ONCE 10/11/16 15:30 Consult to Dialysis [CONS] ONCE Discharging clinician: Genaro Stephens Anticipated date of discharge: 10/12/16 - Patient Status Disposition: Home, Self-Care Condition: Fair Functional capacity at discharge: uses cane/walker Overall status at discharge: patient is back to baseline - Discharge Instructions Follow Up With: Roz Fisher MD [Partnered Physician] - (patient follows up in HD and uses them as a PCP) - Diet and Activity Activity: resume usual activities as tolerated Diet: other (Cardiac, Renal diet, Fluid restriction diet 1.5L daily) Interval History: See below Hospital course: Mr. Snyder is a 31 year old male He has a PMH of Systolic CHF with LVEF of 20-25%, ESRD on HD, REcurrent pleural effusion, Anemia of chronic disease, HTN, Non-ischemic CMP, COPD, Tobacco abuse He was admitted for acute on chronic CHF, Pleural effusion and Fluid overload He has since had thoracentensis, s/p 2L o fluid removed and has had 2 sessions of HD since admission he is seen today , feels good , in no distress and with no complains Patient is stable to discharge back home He is educated about importance of compliance and smoking cessation He is also educated about fluid restriction and compliance with medications He is interested in pleurodesis , discussed with thoracic surgery, patient already had thoracentensis by IR, hence procedure could not be done in this admission. He may be able to get this done when next he has pleural effusion His immunization is up to date Follow up with nephrology and PCP Time spent discussing smoking cessation with patient: 3 to 10 minutes (3 minutes ) - Time Spent with Patient Total time spent providing and/or coordinating discharge services: Less than 30 minutes - Constitutional Vitals: Temp Pulse Resp BP Pulse Ox 97.6 F 78 18 142/91 91 L 10/12/16 07:12 10/12/16 07:12 10/12/16 07:39 10/12/16 07:12 10/12/16 07:39 General appearance: Present: A&O X 3, pleasant, no acute distress, obese - Head Head exam: Present: atraumatic, normocephalic - Eye Eye exam: Present: PERRL, conjuntiva pink, sclera anicteric Pupils: Present: PERRL - Neck Neck exam general surgery: Present: supple, trachea midline. Absent: lymphadenopathy - Respiratory Respiratory exam: Present: CTAB. Absent: accessory muscle use, rales, rhonchi, wheezes - Cardiovascular Cardiovascular exam: Present: RRR, +S1, +S2, systolic murmur. Absent: diastolic murmur, gallop, rubs - GI/Abdominal GI/Abdominal exam: Present: normal bowel sounds, soft, no peritoneal signs. Absent: distended, tenderness - Extremities Exam Extremities exam: Present: pedal edema - Neurological Exam Neurological exam: Present: alert, oriented X3, no focal deficits. Absent: pronater drift, facial droop, speech deficit - Skin Skin exam: Present: dry
[2016-10-12] MEDS: Ondansetron 4 MG/2 ML VIAL IVP PRN (11:37)
--- NOTE | 2016-10-12 13:18 | Nephrology Progress Note ---
Date of Encounter: 10/12/16 Time of Encounter: 12:00 - Assessment and Plan (1) ESRD (end stage renal disease) on dialysis Current Visit: Yes Status: Chronic agree with discharge today, next HD for friday in outpatient Continue fluid restriction per ESRD protocol advised (2) Fluid overload Current Visit: Yes Status: Acute Stable after 2 days of consecutive treatments Qualifiers: Qualified Code(s): E87.70 - Fluid overload, unspecified (3) Pleural effusion Current Visit: No Status: Acute s/p thoracentesis. Pleurodesis planned if recurrent (4) Hyperkalemia Current Visit: No Status: Acute Mildly elevated potassium but imprved at 4.6 after HD Subjective Interval history: Pt seen and examined with new complaints s/p HD yesterday Objective - Vital Signs Vital signs: Vital Signs Temp Pulse Resp BP Pulse Ox 10/12/16 07:39 18 91 L 10/12/16 07:12 97.6 F 78 18 142/91 96 10/12/16 01:52 20 159/76 10/12/16 01:15 162/100 10/12/16 01:00 154/82 10/12/16 00:45 131/110 10/12/16 00:30 141/105 10/12/16 00:15 153/99 10/12/16 00:00 159/105 10/11/16 23:45 144/96 10/11/16 23:30 149/96 10/11/16 23:15 159/101 10/11/16 23:00 156/105 10/11/16 22:59 16 96 10/11/16 22:45 158/102 10/11/16 22:30 149/85 10/11/16 22:15 97.8 F 20 164/110 10/11/16 21:00 97.8 F 82 20 142/96 96 Intake and Output 10/11/16 10/12/16 10/12/16 23:59 07:59 15:59 Intake Total 1220 / 1220 234 / 234 360 / 360 Output Total 2600 / 2600 0 / 0 Balance 1220 / 1220 -2366 / -2366 360 / 360 Intake: Oral 620 / 620 234 / 234 360 / 360 Intake, Rinseback and 600 / 600 Flushes Output: Urine 0 / 0 Total Dialysis Output 2600 / 2600 Other: Meal Dinner Breakfast Percent of Meal Consumed 100% 100% Weight 129.9 kg Hemodialysis Net Fluid 1200 2000 Removed (mL) Patient Weight 10/12/16 23:59 Weight 129.9 kg - General Appearance General appearance: Present: chronically ill (NAD) EENT: Present: ATNC, mucous membranes moist Neck: Present: no JVD, supple Respiratory: Present: clear Cardiology: Present: no edema, normal S1, normal S2 Dialysis Vascular Access: Arteriovenous Fistula thrill: Yes bruit: Yes Gastrointestinal: Present: no tenderness, no guarding Integumentary: Present: warm and dry Neurologic: Present: no focal deficit Musculoskeletal: Present: no deformities Psychiatric: Present: mood/affect appropriate - Lab 10/11/16 05:48 10/12/16 08:44 Most recent lab results Calcium 9.2 mg/dL (8.6-10.8) 10/11/16 05:48 Consult Discharge Plan - Plan Instructions: Tramadol (By mouth), Heart Failure (DC), End-Stage Kidney Disease (DC) Referrals: Roz Fisher MD [Partnered Physician] - (patient follows up in HD and uses them as a PCP) Prescriptions: Tramadol HCl [Ultram] 50 mg PO BID PRN #10 tab PRN Reason: Severe Pain
== END 2016-10-12 13:48 | disposition home or self-care (01) | DRG 291 ==
LOC: EMEROO 18:33 → 2ANU 18:33
PROVIDERS: ADMIT Family Medicine; ATTEND Internal Medicine

== ENCOUNTER 2016-10-18 10:08 | Inpatient (IN) ==
--- NOTE | 2016-10-18 10:33 | Emergency Department Note ---
Disposition Clinical Impression: Hyperkalemia, Renal failure, Pleural effusion Disposition: Admitted As Inpatient Condition: Serious Referrals: NO,PCP [Primary Care Provider] - Forms: ED Satisfaction Letter Time of Disposition: 11:54 SOB HPI - General Chief Complaint: ED Shortness of Breath/Dyspnea Stated Complaint: SOB Time Seen by Provider: 10/18/16 10:31 Source: patient, EMS Mode of arrival: ambulatory Limitations: no limitations Nursing Notes Reviewed: Yes Vital Signs Reviewed: Yes - History of Present Illness Patient presents to the emergency Department with complaints of shortness of breath and pleural pleural effusion on the right. States that he is a dialysis patient and niece had this pleural effusion for several weeks and seems to be getting worse his physicians are Dr. Colon his buckle sorter, Dr. Jamil who is his spot cleaner, Dr. Thomas. He states that typically he he does take blood pressure medicine hydralazine however he has not been able take that this morning and his blood pressure is quite elevated. He was supposed to have the kidney dialysis done last Friday and he could go felt to poorly to go to the dialysis and therefore is not had any dialysis in over a week. He states that he has attempted to use his inhalers and medication but it has not had any relief. Pt Subjective Complaint: shortness of breath, pain with inspiration Onset (ago): week(s) (ongoing) Severity: moderate Consistency/Duration: gradually worsening Improves with: nothing Worsens with: exertion, movement, coughing, inspiration Known history of: other (CKD with dialysis; pleural effusion on the right) Associated symptoms: Reports: pain with inspiration, orthopnea, lower extremity pain Treatment prior to arrival: bronchodilator, diuretics Cough present: No Sputum production: No - Related Data Home Medications Medication Instructions Recorded Confirmed Cinacalcet HCl [Sensipar] 60 mg PO DAILY 04/06/16 10/09/16 Sevelamer [Renvela] 1,600 mg PO TIDWM 04/06/16 10/09/16 Furosemide [Lasix] 40 mg PO SUTUTHSA 08/12/16 10/09/16 Fluticasone/Salmeterol [Advair 1 puff IH Q12H 09/30/16 10/09/16 250-50 Diskus] Ipratropium/Albuterol Neb [Duoneb] 3 ml IH Q6HR 09/30/16 10/09/16 Previous Rx's Medication Instructions Recorded Aspirin Enteric Coated [Aspirin EC] 81 mg PO DAILY #30 tablet. 05/04/15 HydrALAZINE 50 mg PO Q8HR #90 tablet 07/08/16 Metoprolol XL (24 HR) Succ [Toprol 100 mg PO DAILY #90 tab.er.24h 07/08/16 Xl] Albuterol Sulfate [Albuterol 2 puff IH Q4HR #1 hfa.aer.ad 08/19/16 Inhaler] Tramadol HCl [Ultram] 50 mg PO BID PRN #10 tab 10/12/16 Allergies Allergy/AdvReac Type Severity Reaction Status Date / Time No Known Allergies Allergy Verified 08/18/16 18:27 Past Medical History - Past Medical History Medical history: Reports: cardiomyopathy, CHF, dialysis, hypertension, renal disease Surgical history: Reports: orthopedic, other, vascular surgery Psychiatric history: Reports: depression - Social History Smoking Status: Current some day smoker Smokeless Tobacco Status: No Alcohol use: Reports: none Drug use: Reports: none Physical Exam - General Limitations: no limitations General appearance: alert Course Vital Signs Temperature 97.5 F L 10/18/16 10:09 Pulse Rate 95 10/18/16 10:09 Respiratory Rate 18 10/18/16 10:09 Blood Pressure 142/132 10/18/16 10:09 O2 Sat by Pulse Oximetry 99 10/18/16 10:09 Temperature 97.5 F L 10/18/16 10:09 Pulse Rate 95 10/18/16 10:09 Respiratory Rate 16 10/18/16 11:54 Blood Pressure 142/132 10/18/16 10:09 O2 Sat by Pulse Oximetry 97 10/18/16 11:54 Oxygen Delivery Oxygen Delivery Nasal Cannula Shortness of Breath/Dyspnea - Lab Data Lab results reviewed: Yes I reviewed the patient's lab results. Result diagrams: 10/18/16 11:15 10/18/16 11:15 Lab Results 10/18/16 10/18/16 10/18/16 Range/Units 11:15 11:15 11:15 WBC 7.6 (4.3-11.1) K/mcL RBC 4.40 (4.19-5.50) M/mcL Hgb 13.5 (12.9-16.9) g/dL Hct 40.0 (37.5-50.1) % MCV 90.9 (83.0-100.0) fL MCH 30.7 (28.0-33.3) pg MCHC 33.8 (31.6-35.5) g/dL RDW 14.1 (11.5-14.5) % Plt Count 146 (140-400) K/mcL MPV 9.8 (9.4-12.4) fL Immature Gran % 0.3 (0-4) % Seg Neutrophils % 71.7 % Lymphocytes % 16.3 % Monocytes % 7.0 % Eosinophils % 3.8 % Basophils % 0.9 % Neutrophils # 5.4 (1.6-8.9) K/mcL Lymphocytes # 1.2 (0.6-4.6) K/mcL Monocytes # 0.5 (0.0-1.3) K/mcL Eosinophils # 0.3 (0.0-0.6) K/mcL Basophils # 0.1 (0.0-0.2) K/mcL Sodium 132 L (136-145) mEq/L Potassium 6.4 H (3.5-4.5) mEq/L Chloride 95 L (98-109) mEq/L Carbon Dioxide 20 (19-29) mEq/L BUN 58 H (8-26) mg/dL Creatinine 12.20 H (0.72-1.25) mg/dL Est GFR ( Amer) 6 L (> 60) Est GFR (Non-Af Amer) 5 L (> 60) BUN/Creatinine Ratio 5 L (6-26) Glucose 103 H (70-99) mg/dL Calculated Osmolality 290 (280-300) Lactic Acid 0.7 (0.5-2.2) mmol/L Calcium 9.8 (8.6-10.8) mg/dL Troponin I (0-0.03) ng/mL B-Natriuretic Peptide (0-100) pg/mL 10/18/16 10/18/16 Range/Units 11:15 11:15 WBC (4.3-11.1) K/mcL RBC (4.19-5.50) M/mcL Hgb (12.9-16.9) g/dL Hct (37.5-50.1) % MCV (83.0-100.0) fL MCH (28.0-33.3) pg MCHC (31.6-35.5) g/dL RDW (11.5-14.5) % Plt Count (140-400) K/mcL MPV (9.4-12.4) fL Immature Gran % (0-4) % Seg Neutrophils % % Lymphocytes % % Monocytes % % Eosinophils % % Basophils % % Neutrophils # (1.6-8.9) K/mcL Lymphocytes # (0.6-4.6) K/mcL Monocytes # (0.0-1.3) K/mcL Eosinophils # (0.0-0.6) K/mcL Basophils # (0.0-0.2) K/mcL Sodium (136-145) mEq/L Potassium (3.5-4.5) mEq/L Chloride (98-109) mEq/L Carbon Dioxide (19-29) mEq/L BUN (8-26) mg/dL Creatinine (0.72-1.25) mg/dL Est GFR ( Amer) (> 60) Est GFR (Non-Af Amer) (> 60) BUN/Creatinine Ratio (6-26) Glucose (70-99) mg/dL Calculated Osmolality (280-300) Lactic Acid (0.5-2.2) mmol/L Calcium (8.6-10.8) mg/dL Troponin I 0.04 H* (0-0.03) ng/mL B-Natriuretic Peptide 3469 H (0-100) pg/mL - Radiology Data Radiology results reviewed: Yes I reviewed the patient's radiology results. - EKG Data EKG attestation: Yes I reviewed and interpreted this EKG. EKG results narrative: Normal sinus rhythm rate 91. Are 156 QRS 109 QT/QTC 348/397. No peaked T waves. No acute ST segment elevation. Study compared to previous dated . Critical Care Time Critical Care Time: Yes Total Critical Care Time: 30 Attestation: Patient presented with dyspnea. This required telephone consultation with nephrology and interventional radiology. He was hyperkalemic without dynamic ECG changes. Treatment initiated. Patient to be admitted to the medicine service S.B.A.Maggie. - S.B.A.R. Background: Presenting Complaint, Relevant PMH, Meds, & Allergies Assessment: Vital Signs, Course and respsone to treatment, Exam Concerns, Patient/Family Expectation, Outstanding Labs S.Kevin Report Given to: MD Tram Montes Repor Time: 11:07 Attestation Statement - Attestation Attestation: I examined this patient and my medical decision-making was reviewed with the CATALYST RECOVERY OPERATOR/PA/Advanced Practice Nurse/Resident Physician. I agree with the documented findings, disposition and treatment plan as described except to the extent set forth below. Care assumed from Christie nurse practitioner at 11 AM. Patient presents with dyspnea in the subjective sensation that his pleural effusion is recurring. He has a history of dialysis-dependent kidney disease and has missed Friday's session as well as today's. Patient sitting on the edge of the bed and appears mildly dyspneic at the time of my exam. EKG reviewed by me 11:36: CXR reviewed by me. Call placed to IR. Interventional radiology to perform a thoracentesis 11:40: I spoke with Dr. Maravilla, nephrology. Suggest admission for treatment of hyperkalemia with his consultation and arrangement of dialysis to follow. He recommends consultation with cardiothoracic surgery to discuss pleurodesis. 11:50: Dr. Mtz agreeable to admit 11:58: Case d/w Dr. Thomas, CT surgery
[2016-10-18] MEDS ORDERED: Ipratropium/Albuterol Neb 3 ML IH ONE (10:34)
[2016-10-18] MEDS ORDERED: hydrALAZINE 25 MG TABLET PO ONE (10:48)
[2016-10-18 11:24] LABS: Basophils # 0.1 K/mcL (0.0-0.2); Basophils % 0.9 %; Eosinophils # 0.3 K/mcL (0.0-0.6); Eosinophils % 3.8 %; Hemoglobin 13.5 g/dL (12.9-16.9); Immature Granulocytes % 0.3 % (0-4); Lymphocytes # 1.2 K/mcL (0.6-4.6); Lymphocytes % 16.3 %; Mean Corpuscular HGB Conc 33.8 g/dL (31.6-35.5); Mean Corpuscular Hemoglobin 30.7 pg (28.0-33.3); Mean Corpuscular Volume 90.9 fL (83.0-100.0); Mean Platelet Volume 9.8 fL (9.4-12.4); Monocytes # 0.5 K/mcL (0.0-1.3); Neutrophils # 5.4 K/mcL (1.6-8.9); Platelet Count 146 K/mcL (140-400); Red Cell Distribution Width 14.1 % (11.5-14.5); Segmented Neutrophils % 71.7 %
[2016-10-18 11:35] LABS: Calcium 9.8 mg/dL (8.6-10.8); Potassium 6.4 mEq/L (3.5-4.5)
[2016-10-18] MEDS ORDERED: Insulin Human Regular 10 UNIT in 0.9 % Sodium Chloride 10 ML IV ONE (11:40)
[2016-10-18] MEDS ORDERED: *HR* Dextrose 50 % in Water (Syg) 50 ML SYRINGE IVP ONE (11:40)
[2016-10-18] MEDS ORDERED: Albuterol 2.5 MG/3 ML NEBULIZER IH ONE (11:41)
[2016-10-18] MEDS ORDERED: Ondansetron 4 MG/2 ML VIAL IVP ONE (11:56)
[2016-10-18] MEDS ORDERED: 0.9 % Sodium Chloride 250 ML IV PRN (12:02)
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
--- NOTE | 2016-10-18 13:12 | IR Progress Note ---
Patient reports: shortness of breath Vital Signs: Vital Signs/O2 Sat, Most Current Temp Pulse Resp BP Pulse Ox 97.5 F L 95 16 152/94 97 10/18/16 10:09 10/18/16 10:09 10/18/16 12:06 10/18/16 12:10/18/16 11:54 Assessment and Plan Mr Rebolledo is well known to us having recurrent right thoracentesis for pleural effusion and SOB. He presents to the ER where we are consulted for right chest tube placement for possible pleurodesis. However, he states that his hearing aid consultant does not think that is needed as his effusion may be related to his renal failure. He does not want a chest tube until this is further discussed. He is agreeable to proceed with thoracentesis.
--- NOTE | 2016-10-18 13:14 | IR Procedure Note ---
Date of procedure: 10/18/16 Consent Obtained: Written consent Timeout: Correct patient and procedure verified, Correct site verified, Time out performed, Skin prep completed Local anesthetic: Lidocaine 1% Indications: SOB with right pleural effusion Procedure Performed: Right thoracentesis Complications: None; Tolerated procedure well (Monitor on floor)
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
[2016-10-18] MEDS ORDERED: Acetaminophen 325 MG TABLET PO PRN (16:34)
--- NOTE | 2016-10-18 16:49 | Nephrology Consult Note ---
Date of Encounter: 10/18/16 Time of Encounter: 16:39 Assessment and Plan (1) ESRD (end stage renal disease) on dialysis Current Visit: Yes Status: Chronic Last HD was on Friday so he missed Friday and had not dialyzed earlier today at the outpt [facility] unit. So he will need HD today for clearance of the hyperkalemia and fluid removal for his edema and HTN mgt. Pleural Effusion: would he need a pleurodesis? I spoke with Dr. Thomas earlier today and also reviewed Pulmonology's note. Appreciate their expertise. I saw the pt on dialysis this afternoon and his Vitals and blood flows were stable. After today, his next HD would be planned for Friday, but I will repeat his BMP tomorrow AM to make sure the hyperkalemia has improved after the 4hr treatment that I ordered today. HTN: continue home Rx, Renal diet with fluid and salt restriction given his chronic edema His Target/Dry weight, is listed as 129kg in the [facility] records Thank you for consulting the [facility] group. (2) Hyperkalemia Current Visit: Yes Status: Acute Will need urgent HD today for clearance (see above) (3) Noncompliance with medication regimen Current Visit: Yes Status: Acute I had a long conversation with the pt to help him explore for ways to improve his dialysis compliance. He voiced that he is frequently having to babysit his nieces and nephews. (4) Pleural effusion on right Current Visit: Yes Status: Acute See above. (5) Lower extremity edema Current Visit: Yes Status: Chronic UF today with HD for fluid removal. Qualifiers: Laterality: bilateral Qualified Code(s): R60.0 - Localized edema (6) Accelerated hypertension Current Visit: No Status: Acute UF today to help with BP control. Resume home antihypertensive Rx. History of Present Illness - Reason for Consult Consult date: 10/18/16 end stage renal disease, hyperkalemia Requesting physician: Kaleb Stevens - Chief Complaint Missed dialysis, Hyperkalemia and Pleural effusion - History of Present Illness Song Snyder is a very pleasant 31 y/o gentleman with a pmh of obesity, edema , ESRD on HD M/WF, recurrent pleural effusion and et al who presented with worsened shortness of breath and worsened pleural effusion. He did not affirm N/ V/D but did report pleuric chest pain. He last attended dialysis on Friday at his chronic unit, [facility] in [place], [place]. His primary senior quantity surveyor is Dr. Wynne. He dialyzes via a LUE AVF. He did not affirm F/C or problems with chronic suprapubic catheter. Past Med Surg Social Fam HX - Past Medical History Medical history: cardiomyopathy, CHF, dialysis, hypertension, renal disease Psychiatric history: depression - Past Surgical History Surgical History: orthopedic, other, vascular surgery - Social History Smoking Status: Current every day smoker Smokeless Tobacco Status: No Alcohol use: none Drug use: none - Family History Mother Adopted: No Living Status: Still Living Hx Family Cardiac Disorders: Yes Hx Family Respiratory Disorders: No Hx Family Cancer: No Hx Family GI Disorders: No Hx Family Endocrine Disorder: Yes (mother diabetes) Hx Family Neuromuscular Disorders: No Hx Family Neurologic Disorders: No Hx Family HEENT Disorders: No Hx Family Autoimmune Disorders: No Father Living Status: Still Living Hx Family Cardiac Disorders: Yes (CAD) Hx Family Respiratory Disorders: No Hx Family Cancer: No Hx Family GI Disorders: No Hx Family Endocrine Disorder: Yes (Diabetes) Hx Family Neuromuscular Disorders: No Hx Family Neurologic Disorders: No Hx Family HEENT Disorders: No Hx Family Autoimmune Disorders: No Medications and Allergies Aspirin Enteric Coated [Aspirin EC] 81 mg PO DAILY #30 tablet. 05/04/15 [Rx] Cinacalcet HCl [Sensipar] 60 mg PO DAILY 04/06/16 [History] Sevelamer [Renvela] 1,600 mg PO TIDWM 04/06/16 [History] HydrALAZINE 50 mg PO Q8HR #90 tablet 07/08/16 [Rx] Metoprolol XL (24 HR) Succ [Toprol Xl] 100 mg PO DAILY #90 tab.er.24h 07/08/16 [ Rx] Albuterol Sulfate [Albuterol Inhaler] 2 puff IH Q4HR #1 hfa.aer.ad 08/19/16 [Rx] Fluticasone/Salmeterol [Advair 250-50 Diskus] 1 puff IH Q12H 09/30/16 [History] Ipratropium/Albuterol Neb [Duoneb] 3 ml IH Q6HR 01/16/17 [History] Tramadol HCl [Ultram] 50 mg PO BID PRN #10 tab 10/12/16 [Rx] Allergies No Known Allergies Allergy (Verified 08/18/16 18:27) Review of Systems All Systems: reviewed and no additional remarkable complaints except as stated Exam - Vital Signs Vital signs: Initial Vital Signs Temp Pulse Resp BP Pulse Ox 97.5 F L 95 18 142/132 99 10/18/16 10:09 10/18/16 10:09 10/18/16 10:09 10/18/16 10:09 10/18/16 10:09 Vital Signs - Last 8 Hours Resp BP Pulse Ox 10/18/16 15:28 92 L 10/18/16 12:06 16 152/94 Intake and Output 10/18/16 10/18/16 10/18/16 07:59 15:59 23:59 Intake Total 0 / 0 Output Total 0 / 0 Balance 0 / 0 Intake: Oral 0 / 0 Output: Urine 0 / 0 Other: Blood Glucose* 103 - General Appearance General appearance: well-developed, well-nourished, appears started age, chronically ill EENT: ATNC, PERRL, mucous membranes moist Neck: supple Respiratory: course breath sounds Cardiology: edema, regular rate, regular rhythm, normal S1, normal S2 - Dialysis Access Dialysis Vascular Access: Arteriovenous Fistula (LUE AVF) thrill: Yes bruit: Yes Gastrointestinal: normoactive bowel sounds, no tenderness, obese Integumentary: no rash, warm and dry Neurologic: no focal deficit, no asterixis, alert and oriented x3 Musculoskeletal: no deformities, no erythema, no cyanosis Psychiatric: mood/affect appropriate, cooperative Results - Lab Results 10/18/16 11:15 10/18/16 11:15 Most recent lab results Calcium 9.8 mg/dL (8.6-10.8) 10/18/16 11:15 I reviewed the above labs, meds, vitals, prior progress notes, imaging and outside [facility] medical records. Consult Discharge Plan - Plan Referrals: NO,PCP [Primary Care Provider] -
[2016-10-18] MEDS: traMADol 50 MG TABLET PO PRN (20:45)
[2016-10-19] MEDS: *HR* Heparin 5,000 UNIT/ML VIAL SQ SCH ×2 (09:29→20:10)
[2016-10-19] MEDS: Metoprolol XL (24 HR) Succ 50 MG TAB.ER.24H PO SCH (09:30)
[2016-10-19] MEDS: Aspirin Enteric Coated 81 MG Tablet PO SCH (09:30)
--- NOTE | 2016-10-19 13:24 | Nephrology Progress Note ---
Date of Encounter: 10/19/16 Time of Encounter: 10:00 - Assessment and Plan (1) ESRD (end stage renal disease) on dialysis Current Visit: Yes Status: Chronic Last HD was yesterday. Pending labs today, but assuming he is not hyperkalemic today -- I suspect it has improved s/p HD -- then he should be okay to d/c from a nephrology perspective. (2) Hyperkalemia Current Visit: Yes Status: Acute Pending labs (3) Noncompliance with medication regimen Current Visit: Yes Status: Acute Long conversation with him to improve his compliance. (4) Pleural effusion on right Current Visit: Yes Status: Acute Appreciated Pulm and CTS (5) Lower extremity edema Current Visit: Yes Status: Chronic Qualifiers: Laterality: bilateral Qualified Code(s): R60.0 - Localized edema (6) Accelerated hypertension Current Visit: No Status: Acute Subjective Principal diagnosis: ESRD Interval history: pt was s/e earlier today. He did not affirm N/V/D. Objective - Vital Signs Vital signs: Vital Signs Temp Pulse Resp BP Pulse Ox 10/19/16 12:07 98.3 F 74 16 144/92 97 10/19/16 09:30 94 L 10/19/16 08:41 98.1 F 91 16 158/90 94 L 10/19/16 05:10 98.3 F 92 20 160/108 99 10/18/16 21:18 98.4 F 96 22 148/86 90 L 10/18/16 18:50 135/73 10/18/16 18:35 140/60 10/18/16 18:20 129/69 10/18/16 18:05 135/73 10/18/16 17:50 136/68 10/18/16 17:35 122/81 10/18/16 17:20 129/69 10/18/16 17:05 135/73 10/18/16 16:50 145/69 10/18/16 16:35 139/77 10/18/16 16:20 113/60 10/18/16 16:05 126/61 10/18/16 15:50 130/68 10/18/16 15:35 127/61 10/18/16 15:28 92 L 10/18/16 15:20 125/59 10/18/16 15:05 162/91 10/18/16 14:50 97.6 F 81 20 153/92 97 10/18/16 14:45 97.6 F 20 127/69 Intake and Output 10/18/16 10/19/16 10/19/16 23:59 07:59 15:59 Intake Total 240 / 240 Output Total Balance 239 / 239 Intake: Oral 240 / 240 Output: Urine Other: Meal Breakfast Percent of Meal Consumed 100% Stool Size Moderate Stool Consistency loose # Bowel Movements 1 Weight 132.54 kg Hemodialysis Net Fluid 4600 Removed (mL) Patient Weight 10/19/16 23:59 Weight 132.54 kg - General Appearance General appearance: Present: well-developed, well-nourished, obese (and tall) EENT: Present: ATNC Cardiology: Present: edema (trace pedal edema) Neurologic: Present: no focal deficit Psychiatric: Present: mood/affect appropriate, cooperative - Lab 10/18/16 11:15 10/18/16 11:15 Most recent lab results Calcium 9.8 mg/dL (8.6-10.8) 10/18/16 11:15 Consult Discharge Plan - Plan Referrals: NO,PCP [Primary Care Provider] -
[2016-10-19 14:01] LABS: Potassium 6.1 mEq/L (3.5-4.5)
[2016-10-19] MEDS: traMADol 50 MG TABLET PO PRN (14:07)
[2016-10-19] MEDS ORDERED: traMADol 50 MG TABLET PO PRN (14:30)
--- NOTE | 2016-10-19 14:33 | Internal Med Progress Note ---
Date of Encounter: 10/19/16 Time of Encounter: 14:31 - Assessment and plan (1) Acute on chronic systolic heart failure Current Visit: Yes Status: Acute Assessment and plan: Acute pulmonary edema with recurrent right pleural effusion status post thoracenteses secondary to significant acute systolic CHF exacerbation and noncompliance with dialysis due to end-stage renal disease Encourage compliance with dialysis (2) Hyperkalemia Current Visit: Yes Status: Acute Assessment and plan: Potassium was 6.4, is still 6.1 Start Kayexalate, consider repeating hemodialysis either today or tomorrow Monitor potassium again tonight (3) Noncompliance with medication regimen Current Visit: Yes Status: Acute (4) Pleural effusion on right Current Visit: Yes Status: Acute Assessment and plan: The patient is scheduled to discuss with his cardiothoracic surgeon and possible Pleurx catheter placement as an outpatient at some point. He has not decided on this possibility yet. (5) ESRD (end stage renal disease) on dialysis Current Visit: Yes Status: Chronic (6) Recurrent pleural effusion on right Current Visit: Yes Status: Chronic (7) Suprapubic catheter Current Visit: No Status: Acute - Time Spent With Patient Greater than 35 minutes - Subjective Interval history: The patient is complaining of some pain in the area of the thoracentesis on the right side. Feels less short of breath, no abdominal, no chest pain, no fevers , has a dry cough. No diarrhea - Constitutional Vitals: Temp Pulse Resp BP Pulse Ox 98.3 F 74 16 144/92 97 10/19/16 12:07 10/19/16 12:07 10/19/16 12:07 10/19/16 12:07 10/19/16 12:07 General appearance: Present: cooperative, mild distress, A&O X 3, pleasant, obese, answers questions appropriately - Head Head exam: Present: atraumatic, normocephalic - Eye Eye exam: Present: PERRL, conjuntiva pink, sclera anicteric Pupils: Present: PERRL - Neck Neck exam general surgery: Present: supple, trachea midline. Absent: lymphadenopathy - Respiratory Respiratory exam: Present: CTAB, rales (Blunted breath sounds on the right base and fine crackles on the left). Absent: accessory muscle use, rhonchi, wheezes - Cardiovascular Cardiovascular exam: Present: RRR, +S1, +S2. Absent: diastolic murmur, gallop, rubs, systolic murmur - GI/Abdominal GI/Abdominal exam: Present: normal bowel sounds, soft, no peritoneal signs. Absent: distended, tenderness Additional comments: Suprapubic catheter in place - Extremities Exam Extremities exam: Present: warm, radial pulses palpable and symetrical. Absent : calf tenderness, cyanotic, pedal edema (+1 pitting edema both lower extremities) - Neurological Exam Neurological exam: Present: CN II-XII intact, oriented X3, no focal deficits. Absent: pronater drift, facial droop, speech deficit - Skin Skin exam: Present: dry, intact Internal Medicine: Result - Labs CBC & Chem 7: 10/18/16 11:15 10/19/16 13:20 Labs: BMP 10/19/16 13:20 Sodium 137 Potassium 6.1 H Chloride 96 L Carbon Dioxide 27 BUN 42 H D Creatinine 9.65 H Glucose 114 H Calcium 9.0 Consult Discharge Plan - Plan Referrals: NO,PCP [Primary Care Provider] -
[2016-10-19] MEDS: Ondansetron 4 MG/2 ML VIAL IVP PRN (15:45)
[2016-10-20] MEDS ORDERED: *HR* HYDROmorphone (PF) 1 MG/ML SYRINGE IVP ONE (01:14)
[2016-10-20] MEDS: Ondansetron 4 MG/2 ML VIAL IVP PRN (05:58)
[2016-10-20] MEDS: *HR* Heparin 5,000 UNIT/ML VIAL SQ SCH (06:03)
[2016-10-20 06:41] VITALS: BP 144/81
[2016-10-20 06:49] LABS: Calcium 9.2 mg/dL (8.6-10.8); Potassium 5.4 mEq/L (3.5-4.5)
[2016-10-20] MEDS ORDERED: traMADol 50 MG TABLET PO SCH (09:00)
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
[2016-10-20] MEDS: Metoprolol XL (24 HR) Succ 50 MG TAB.ER.24H PO SCH (09:45)
[2016-10-20] MEDS: Aspirin Enteric Coated 81 MG Tablet PO SCH (09:45)
--- NOTE | 2016-10-20 16:32 | Electrocardiograph Report ---
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
== END 2016-10-20 14:35 | disposition home or self-care (01) | DRG 291 ==
LOC: 2ANU 10:08 → EMEROO 10:08 → 2ANU 12:31
PROVIDERS: ADMIT Internal Medicine; ATTEND Internal Medicine

== ENCOUNTER 2016-11-06 23:02 | Inpatient (IN) ==
[2016-11-06 23:55] LABS: Basophils # 0.1 K/mcL (0.0-0.2); Basophils % 1.2 %; Eosinophils # 0.4 K/mcL (0.0-0.6); Hematocrit 47.8 % (37.5-50.1); Hemoglobin 15.3 g/dL (12.9-16.9); Immature Granulocytes % 0.2 % (0-4); Lymphocytes # 1.9 K/mcL (0.6-4.6); Lymphocytes % 20.8 %; Mean Corpuscular Hemoglobin 30.1 pg (28.0-33.3); Mean Corpuscular Volume 93.9 fL (83.0-100.0); Monocytes # 0.6 K/mcL (0.0-1.3); Monocytes % 6.8 %; Neutrophils # 6.1 K/mcL (1.6-8.9); Platelet Count 189 K/mcL (140-400); Red Blood Count 5.09 M/mcL (4.19-5.50); Red Cell Distribution Width 14.2 % (11.5-14.5)
[2016-11-07 00:01] LABS: INR 1.2; Prothrombin Time 12.8 Seconds (9.4-12.1)
[2016-11-07 00:04] LABS: Activated Partial Thrombo Time 37.2 Seconds (26.0-36.0)
[2016-11-07 00:09] LABS: Calcium 10.7 mg/dL (8.6-10.8); Potassium 4.3 mEq/L (3.5-4.5)
[2016-11-07 00:10] LABS: Albumin 3.8 g/dL (3.5-5.0); Albumin/Globulin Ratio 0.9 (1.1-2.2); Bilirubin,Direct 0.4 mg/dL (0.0-0.5); Bilirubin,Indirect 0.3 mg/dL (0.0-1.2); Bilirubin,Total 0.7 mg/dL (0.2-1.2); Globulin 4.1 g/dL (2.4-3.5); Magnesium 2.5 mg/dL (1.6-2.6); Phosphorous 6.6 mg/dL (2.3-4.7); Total Protein 7.9 g/dL (6.0-8.3)
--- NOTE | 2016-11-07 00:16 | Emergency Department Note ---
Disposition Clinical Impression: ST segment changes on electrocardiogram Dyspnea Qualifiers: Dyspnea type: unspecified Qualified Code(s): R06.00 - Dyspnea, unspecified Disposition: Admitted As Inpatient Condition: Good SOB HPI - General Chief Complaint: ED Shortness of Breath/Dyspnea Stated Complaint: CHANDLER Time Seen by Provider: 11/06/16 23:20 Source: patient, EMS Mode of arrival: private vehicle Limitations: no limitations Nursing Notes Reviewed: Yes Vital Signs Reviewed: Yes - History of Present Illness Pt Subjective Complaint: shortness of breath Onset (ago): hour(s) ("All day today") Context: other (Hx of similar - "Pleural effusion") Severity: moderate Consistency/Duration: constant Improves with: upright position Worsens with: lying flat, exertion Known history of: congestive heart failure, other (Renal failure - missed dialysis today - went on Friday) Associated symptoms: Reports: orthopnea. Denies: chest pain, pain with inspiration, fever, cough, wheezing, sputum production, lower extremity pain, polyuria, polydipsia, parasthesias, palpitations, hemoptysis, diaphoresis, nausea/vomiting, syncope, abdominal pain, rash, sense of impending doom Treatment prior to arrival: none Cough present: Yes Cough Description: Voluntary, Dry Cough Frequency: Intermittent Sputum production: No - Related Data Home oxygen amount: none Home Medications Medication Instructions Recorded Confirmed Cinacalcet HCl [Sensipar] 60 mg PO DAILY 04/06/16 10/18/16 Fluticasone/Salmeterol [Advair 1 puff IH Q12H 09/30/16 10/18/16 250-50 Diskus] Ipratropium/Albuterol Neb [Duoneb] 3 ml IH Q6HR 09/30/16 10/18/16 Furosemide [Lasix] 40 mg PO DAILY 11/07/16 11/07/16 Hydralazine HCl 10 mg PO QID 11/07/16 11/07/16 Previous Rx's Medication Instructions Recorded Aspirin Enteric Coated [Aspirin EC] 81 mg PO DAILY #30 tablet. 05/04/15 HydrALAZINE 50 mg PO Q8HR #90 tablet 07/08/16 Metoprolol XL (24 HR) Succ [Toprol 100 mg PO DAILY #90 tab.er.24h 07/08/16 Xl] Albuterol Sulfate [Albuterol 2 puff IH Q4HR #1 hfa.aer.ad 08/19/16 Inhaler] Sevelamer [Renvela] 1,600 mg PO TIDWM 30 Days 10/20/16 Tramadol HCl [Ultram] 50 mg PO BID PRN #20 tab 10/20/16 Allergies Allergy/AdvReac Type Severity Reaction Status Date / Time No Known Allergies Allergy Verified 11/06/16 23:04 All systems ED: reviewed and negative except as stated. Constitutional: Denies: fever, chills, weakness Eyes: Denies: eye discharge ENT ED: Reports: ear pain (for several weeks - diagnosed with AOM recently ) Cardiovascular: Reports: dyspnea on exertion, orthopnea, edema. Denies: chest pain, palpitations, syncope Respiratory: Reports: as per HPI, cough. Denies: dyspnea, wheezes Gastrointestinal: Denies: abdominal pain, nausea, vomiting, diarrhea Genitourinary: Denies: hematuria Neurological: Denies: headache, weakness, vertigo Hematological/Lymphatic: Denies: easy bleeding, easy bruising Past Medical History - Past Medical History Attestation: Yes The following information was validated with the patient. Source: patient, old records reviewed, nursing notes reviewed Medical history: Reports: cardiomyopathy, CHF, dialysis, hypertension, renal disease Surgical history: Reports: orthopedic, other, vascular surgery Psychiatric history: Reports: depression - Social History Smoking Status: Current every day smoker Smokeless Tobacco Status: No Alcohol use: Reports: none Drug use: Reports: none Physical Exam - General Limitations: no limitations General appearance: alert, in no apparent distress - Head Head exam: atraumatic, normocephalic, normal inspection - Eye Eye exam: Present: normal appearance, PERRL. Absent: scleral icterus, conjunctival injection, periorbital swelling - ENT ENT exam: mucous membranes moist - Expanded ENT Exam TM/Canal: Erythema: Right TM, Bulging: Bilateral TM (mild), Perforation: Negative, Loss of Landmarks: Right TM Nose exam: negative: rhinorrhea, sinus tenderness Mouth exam: Present: normal external inspection, tongue normal. Absent: drooling, trismus Teeth exam: Present: normal inspection Throat exam: Present: normal inspection - Neck Neck exam: Present: normal inspection, full ROM, trachea midline. Absent: meningismus, lymphadenopathy - Chest Chest inspection: Present: normal inspection, symmetric chest wall rise. Absent : tenderness - Respiratory Respiratory exam: Present: normal lung sounds bilaterally, prolonged expiratory phase. Absent: respiratory distress, wheezes, stridor, accessory muscle use - Cardiovascular Cardiovascular exam: Present: normal rhythm, tachycardia, normal heart sounds - Abdominal Exam Abdominal exam: Present: soft, Non-Tender. Absent: distention, guarding, rebound, rigidity, mass - Extremities Exam Extremities exam: Present: pedal edema. Absent: joint swelling, calf tenderness - Back Exam Back exam: Present: normal inspection - Neurological Exam Neurological exam: Present: alert, oriented X3, CN II-XII intact - Psychiatric Psychiatric exam: Present: normal affect, normal mood - Skin Skin exam: Present: warm, dry, intact, normal color Course Vital Signs Temperature 97.6 F 11/06/16 23:04 Pulse Rate 102 11/06/16 23:04 Respiratory Rate 20 11/06/16 23:04 Blood Pressure 196/125 11/06/16 23:04 O2 Sat by Pulse Oximetry 96 11/06/16 23:04 Temperature 97.6 F 11/07/16 05:26 Pulse Rate 88 11/07/16 05:26 Respiratory Rate 18 11/07/16 05:26 Blood Pressure 163/124 11/07/16 05:26 O2 Sat by Pulse Oximetry 100 11/07/16 05:26 Oxygen Delivery Oxygen Delivery Room Air Shortness of Breath/Dyspnea - Medical Records Medical records reviewed: Yes I reviewed the patient's medical records. - Lab Data Lab results reviewed: Yes I reviewed the patient's lab results. Result diagrams: 11/06/16 23:40 11/06/16 23:40 Lab Results 11/06/16 11/06/16 11/06/16 Range/Units 23:40 23:40 23:40 WBC 9.1 (4.3-11.1) K/mcL RBC 5.09 (4.19-5.50) M/mcL Hgb 15.3 D (12.9-16.9) g/dL Hct 47.8 (37.5-50.1) % MCV 93.9 (83.0-100.0) fL MCH 30.1 (28.0-33.3) pg MCHC 32.0 (31.6-35.5) g/dL RDW 14.2 (11.5-14.5) % Plt Count 189 (140-400) K/mcL MPV 10.0 (9.4-12.4) fL Immature Gran % 0.2 (0-4) % Seg Neutrophils % 67.0 % Lymphocytes % 20.8 % Monocytes % 6.8 % Eosinophils % 4.0 % Basophils % 1.2 % Neutrophils # 6.1 (1.6-8.9) K/mcL Lymphocytes # 1.9 (0.6-4.6) K/mcL Monocytes # 0.6 (0.0-1.3) K/mcL Eosinophils # 0.4 (0.0-0.6) K/mcL Basophils # 0.1 (0.0-0.2) K/mcL PT 12.8 H (9.4-12.1) Seconds INR 1.2 APTT 37.2 H (26.0-36.0) Seconds Sodium 138 (136-145) mEq/L Potassium 4.3 (3.5-4.5) mEq/L Chloride 95 L (98-109) mEq/L Carbon Dioxide 27 (19-29) mEq/L BUN 49 H (8-26) mg/dL Creatinine 9.68 H (0.72-1.25) mg/dL Est GFR ( Amer) 8 L (> 60) Est GFR (Non-Af Amer) 6 L (> 60) BUN/Creatinine Ratio 5 L (6-26) Glucose 102 H (70-99) mg/dL Calculated Osmolality 299 (280-300) Lactic Acid (0.5-2.2) mmol/L Calcium 10.7 (8.6-10.8) mg/dL Phosphorus (2.3-4.7) mg/dL Magnesium (1.6-2.6) mg/dL Total Bilirubin (0.2-1.2) mg/dL Direct Bilirubin (0.0-0.5) mg/dL Indirect Bilirubin (0.0-1.2) mg/dL AST (5-34) Units/L ALT (0-55) Units/L Alkaline Phosphatase (38-126) Units/L Troponin I (0-0.03) ng/mL B-Natriuretic Peptide (0-100) pg/mL Serum Total Protein (6.0-8.3) g/dL Albumin (3.5-5.0) g/dL Globulin (2.4-3.5) g/dL Albumin/Globulin Ratio (1.1-2.2) 11/06/16 11/06/16 11/06/16 Range/Units 23:40 23:40 23:40 WBC (4.3-11.1) K/mcL RBC (4.19-5.50) M/mcL Hgb (12.9-16.9) g/dL Hct (37.5-50.1) % MCV (83.0-100.0) fL MCH (28.0-33.3) pg MCHC (31.6-35.5) g/dL RDW (11.5-14.5) % Plt Count (140-400) K/mcL MPV (9.4-12.4) fL Immature Gran % (0-4) % Seg Neutrophils % % Lymphocytes % % Monocytes % % Eosinophils % % Basophils % % Neutrophils # (1.6-8.9) K/mcL Lymphocytes # (0.6-4.6) K/mcL Monocytes # (0.0-1.3) K/mcL Eosinophils # (0.0-0.6) K/mcL Basophils # (0.0-0.2) K/mcL PT (9.4-12.1) Seconds INR APTT (26.0-36.0) Seconds Sodium (136-145) mEq/L Potassium (3.5-4.5) mEq/L Chloride (98-109) mEq/L Carbon Dioxide (19-29) mEq/L BUN (8-26) mg/dL Creatinine (0.72-1.25) mg/dL Est GFR ( Amer) (> 60) Est GFR (Non-Af Amer) (> 60) BUN/Creatinine Ratio (6-26) Glucose (70-99) mg/dL Calculated Osmolality (280-300) Lactic Acid 0.9 (0.5-2.2) mmol/L Calcium (8.6-10.8) mg/dL Phosphorus 6.6 H (2.3-4.7) mg/dL Magnesium 2.5 (1.6-2.6) mg/dL Total Bilirubin 0.7 (0.2-1.2) mg/dL Direct Bilirubin 0.4 (0.0-0.5) mg/dL Indirect Bilirubin 0.3 (0.0-1.2) mg/dL AST 11 (5-34) Units/L ALT 9 (0-55) Units/L Alkaline Phosphatase 172 H (38-126) Units/L Troponin I 0.08 H* (0-0.03) ng/mL B-Natriuretic Peptide (0-100) pg/mL Serum Total Protein 7.9 (6.0-8.3) g/dL Albumin 3.8 (3.5-5.0) g/dL Globulin 4.1 H (2.4-3.5) g/dL Albumin/Globulin Ratio 0.9 L (1.1-2.2) 11/06/16 Range/Units 23:40 WBC (4.3-11.1) K/mcL RBC (4.19-5.50) M/mcL Hgb (12.9-16.9) g/dL Hct (37.5-50.1) % MCV (83.0-100.0) fL MCH (28.0-33.3) pg MCHC (31.6-35.5) g/dL RDW (11.5-14.5) % Plt Count (140-400) K/mcL MPV (9.4-12.4) fL Immature Gran % (0-4) % Seg Neutrophils % % Lymphocytes % % Monocytes % % Eosinophils % % Basophils % % Neutrophils # (1.6-8.9) K/mcL Lymphocytes # (0.6-4.6) K/mcL Monocytes # (0.0-1.3) K/mcL Eosinophils # (0.0-0.6) K/mcL Basophils # (0.0-0.2) K/mcL PT (9.4-12.1) Seconds INR APTT (26.0-36.0) Seconds Sodium (136-145) mEq/L Potassium (3.5-4.5) mEq/L Chloride (98-109) mEq/L Carbon Dioxide (19-29) mEq/L BUN (8-26) mg/dL Creatinine (0.72-1.25) mg/dL Est GFR ( Amer) (> 60) Est GFR (Non-Af Amer) (> 60) BUN/Creatinine Ratio (6-26) Glucose (70-99) mg/dL Calculated Osmolality (280-300) Lactic Acid (0.5-2.2) mmol/L Calcium (8.6-10.8) mg/dL Phosphorus (2.3-4.7) mg/dL Magnesium (1.6-2.6) mg/dL Total Bilirubin (0.2-1.2) mg/dL Direct Bilirubin (0.0-0.5) mg/dL Indirect Bilirubin (0.0-1.2) mg/dL AST (5-34) Units/L ALT (0-55) Units/L Alkaline Phosphatase (38-126) Units/L Troponin I (0-0.03) ng/mL B-Natriuretic Peptide 3755 H (0-100) pg/mL Serum Total Protein (6.0-8.3) g/dL Albumin (3.5-5.0) g/dL Globulin (2.4-3.5) g/dL Albumin/Globulin Ratio (1.1-2.2) - Radiology Data Radiology results reviewed: Yes I reviewed the patient's radiology results. Chest X-Ray 11/06/16 23:21 IMPRESSION: Large right pleural effusion with atelectasis. Superimposed pneumonia cannot be excluded. D/ / Garth Mansfield MD / Garth Mansfield MD Interpreting Provider: Garth Mansfield MD
[2016-11-07] MEDS ORDERED: *HR* OxyCODONE/APAP 5/325 TABLET ONE ×2 (01:26→04:26)
[2016-11-07] MEDS ORDERED: Azithromycin 250 MG TABLET PO ONE (03:43)
[2016-11-07] MEDS ORDERED: CefTRIAXone 1,000 MG VIAL ONE (03:43)
[2016-11-07] MEDS ORDERED: D5% in Water (Mini-Bag+) 100 ML IVPB ONE (03:44)
[2016-11-07] MEDS ORDERED: Naloxone 0.4 MG/ML INJ IVP PRN (05:14)
[2016-11-07] MEDS ORDERED: Acetaminophen 325 MG TABLET PO PRN (05:14)
--- NOTE | 2016-11-07 05:37 | Internal Med History&Physical ---
<Mikaela Mcqueen - Last Filed: 11/07/16 06:13> Date of Encounter: 11/07/16 Time of Encounter: 05:30 Assessment and Plan (1) Dyspnea Current visit: No Status: Acute Patient presents complaining of 2 days of shortness of breath. This is likely due to patients recurrent pleural effusion on the right as well as underlying lung disease. CXR done today showed large R pleural effusion and atelectasis, possible pneumonia. Patient has no other symptoms of pneumonia fever/chills, cough/congestion, elevated WBC, tachypnea or tachycardia. As such, believe that pneumonia is not likely and will hold on antibiotics at this time. Patient will require drainage of fluid. INR is 1.2. Will provide supplemental oxygen and supportive care until drainage can be arranged. 1. Continuous oxygen monitoring and supplemental oxygen as needed 2. Consult to pulmonology for further recommendations. Qualifiers: Dyspnea type: dyspnea on exertion Qualified Code(s): R06.09 - Other forms of dyspnea (2) Recurrent pleural effusion on right Current visit: No Status: Chronic Patient presents complaining of 2 days of shortness of breath. This is likely due to patients recurrent pleural effusion on the right as well as underlying lung disease. CXR done today showed large R pleural effusion and atelectasis. Patient will require drainage of fluid. INR is 1.2. Will provide supplemental oxygen and supportive care until drainage can be arranged. 1. Continuous oxygen monitoring and supplemental oxygen as needed 2. Consult to pulmonology for further recommendations. (3) ESRD (end stage renal disease) on dialysis Current visit: No Status: Chronic Patient has ESRD and normally has dialysis M/W/F. Patient did not go to dialysis yesterday because he was not feeling well. Today in the ED, creatinine elevated however electrolytes all within normal limits. Will consult nephrology. 1. Patient will require dialysis 2. Consult for nephrology (4) Ear pain, right Current visit: No Status: Acute Patient with right ear pain. Exam shows bulging, red tympanic membrane. Given 1st dose of amoxicillin in the ED. Will continue for 5 days of treatment. 1. Amoxicillin 1g Q8H x 5hrs (5) Elevated troponin Current visit: No Status: Acute Patient with elevated troponin of 0.08. On review of chart, patient has a history of baseline elevated troponins at 0.04. Will trend troponins. 1. Trend troponins every 6 hours for total of 3 (6) COPD (chronic obstructive pulmonary disease) Current visit: No Status: Chronic Patient with history of COPD. Will continue home medications for COPD Qualifiers: COPD type: unspecified COPD Qualified Code(s): J44.9 - Chronic obstructive pulmonary disease, unspecified (7) Congestive heart failure Current visit: No Status: Chronic Patient with history of CHF on lasix. Will continue home medications. Qualifiers: Congestive heart failure type: systolic Congestive heart failure chronicity : acute on chronic Qualified Code(s): I50.23 - Acute on chronic systolic ( congestive) heart failure (8) Hypertension Current visit: No Status: Chronic Patient with history of hypertension on home medications. Will continue home dose medications. Qualifiers: Hypertension type: essential hypertension Qualified Code(s): I10 - Essential (primary) hypertension (9) DVT prophylaxis Current visit: No Status: Acute Will hold pharmacologic DVT prophylaxis until it is determined if patient will get a thoracentesis. Will do SCD for DVT prophylaxis. Internal Medicine - H&P: HPI Admitted From: Emergency Dept Plans for Post Hospital Care: Home History of present illness: Mr Snyder is a 31yo male with PMH including HTN, ESRD on dialysis, COPD, CHF, and recurrent right pleural effusion. Patient comes to the ED with chief complaint of right ear/jaw pain and shortness of breath. Patient reports that he has had right ear pain for the last 2 weeks. He reports associated jaw pain stating that it feels like a toothache. He reports that sharp noises make the pain worse but nothing makes the pain better. He denies any decreased hearing or sore throat. Patient also reports increasing shortness of breath over the last 2 days. He reports difficulty walking any distance. He denies shortness of breath at rest. He has a recurrent right pleural effusion that has been drained many times over the last several months. It was last drained 1 week ago here at [facility] and they drained off 2 liters per patient report. Patient has talked with Dr. Thomas in the past about a surgical fix and had initially decided not too however he states that he would like to talk with Dr. Thomas again if possible. He does have underlying COPD and follows with [facility]. He does not use supplemental oxygen at home. Patient reports shortness of breath and weakness but denies chest pain, cough, congestion, or runny nose. Patient has ESRD and has dialysis M/W/F. He reports that he went to dialysis Friday but because he didnt feel well he did not go on Friday. He states that he was unable to get out of bed because of his shortness of breath. He does still make urine but has a suprapubic catheter due to bladder issues. Overall patient reports associated headache, nausea/vomiting, and diarrhea/constipation. He denies fever/chills, confusion, vision changes, problems swallowing, abdominal pain. In the ED, patient is afebrile with blood pressure elevated 177/100. Heart rate 102 on admission. >95% on 2L O2. EKG showed sinus tachycardia with PVC. CXR showed a large right pleural effusion and atelectasis. Patient given amoxicillin for an otitis median and rocephin for concern for pneumonia in the ED. On exam, patient is awake and alert, in no acute distress. Right ear drum erythematous and mildly distended compared to left. Heart is regular rate and rhythm. Lungs diminished in right lower base, no crackles or wheezing. Abdomen soft, nontender. Legs with pitting edema, left worse than right. Past Med Surg Social Fam HX - Past Medical History Medical history: cardiomyopathy, CHF, dialysis, hypertension, renal disease Psychiatric history: depression - Past Surgical History Surgical History: orthopedic, other, vascular surgery - Social History Smoking Status: Current every day smoker Smokeless Tobacco Status: No Alcohol use: none Drug use: none - Family History Mother Adopted: No Living Status: Still Living Hx Family Cardiac Disorders: Yes Hx Family Respiratory Disorders: No Hx Family Cancer: No Hx Family GI Disorders: No Hx Family Endocrine Disorder: Yes (mother diabetes) Hx Family Neuromuscular Disorders: No Hx Family Neurologic Disorders: No Hx Family HEENT Disorders: No Hx Family Autoimmune Disorders: No Father Living Status: Still Living Hx Family Cardiac Disorders: Yes (CAD) Hx Family Respiratory Disorders: No Hx Family Cancer: No Hx Family GI Disorders: No Hx Family Endocrine Disorder: Yes (Diabetes) Hx Family Neuromuscular Disorders: No Hx Family Neurologic Disorders: No Hx Family HEENT Disorders: No Hx Family Autoimmune Disorders: No Internal Medicine - H&P: Meds Aspirin Enteric Coated [Aspirin EC] 81 mg PO DAILY #30 tablet. 05/04/15 [Rx] Cinacalcet HCl [Sensipar] 60 mg PO DAILY 04/06/16 [History] Metoprolol XL (24 HR) Succ [Toprol Xl] 100 mg PO DAILY #90 tab.er.24h 07/08/16 [ Rx] Albuterol Sulfate [Albuterol Inhaler] 2 puff IH Q4HR #1 hfa.aer.ad 08/19/16 [Rx] Ipratropium/Albuterol Neb [Duoneb] 3 ml IH Q6HR 09/30/16 [History] Sevelamer [Renvela] 1,600 mg PO TIDWM 30 Days 10/20/16 [Rx] Fluticasone/Salmeterol [Advair 100-50 Diskus] 1 puff IH BID 11/07/16 [History] Furosemide [Lasix] 40 mg PO DAILY 11/07/16 [History] Hydralazine HCl 10 mg PO QID 11/07/16 [History] Allergies No Known Allergies Allergy (Verified 11/06/16 23:04) All Systems PM: A 10-system review of systems was performed and is negative for pertinent findings except as documented above in the HPI. - Constitutional Constitutional: weakness, no chills, no fever(s) - EENT Eyes: no change in vision Ears: ear pain, no decreased hearing, no ear discharge, no tinnitus Nose, mouth and throat: no nasal congestion, no nasal discharge, no sinus pain, no sinus pressure - Cardiovascular Cardiovascular ROS IM: dyspnea, dyspnea on exertion, edema, no chest pain, no irregular heart rhythm, no palpitations - Respiratory Respiratory: dyspnea, dyspnea on exertion, no cough, no hemoptysis, no wheezing , no stridor, no pain on inspiration, no chest congestion - Gastrointestinal Gastrointestinal: constipation, diarrhea, nausea, vomiting - Neurological Neurological ROS: headache(s), weakness, no confusion, no dizziness - Constitutional Vitals: Temp Pulse Resp BP Pulse Ox 97.6 F 88 18 163/124 100 11/07/16 05:26 11/07/16 05:26 11/07/16 05:26 11/07/16 05:26 11/07/16 05:26 General appearance: Present: A&O X 3, no acute distress, answers questions appropriately - Head Head exam: Present: atraumatic, normal inspection, normocephalic - ENT ENT exam: Present: mucous membranes moist - Expanded ENT Exam bulging: Right TM, erythema: Right TM, mastoid tenderness: Right TM - Respiratory Additional comments: decrease breath sounds right base - Cardiovascular Cardiovascular exam: Present: RRR - GI/Abdominal GI/Abdominal exam: Present: soft. Absent: distended, guarding, rigid, tenderness - Extremities Exam Extremities exam: Present: pedal edema (left worse than right) - Neurological Exam Neurological exam: Present: alert, CN II-XII intact, oriented X3 Internal Med - H&P Results - Labs CBC & Chem 7: 11/06/16 23:40 11/06/16 23:40 <Shabbir Moyabandararuna Serrano - Last Filed: 11/07/16 08:32> Date of Encounter: 11/07/16 Internal Medicine - H&P: HPI History of present illness: Mr. Snyder is a 31 year old male All Systems PM: A 10-system review of systems was performed and is negative for pertinent findings except as documented above in the HPI. - Constitutional Vitals: Temp Pulse Resp BP Pulse Ox 97.6 F 88 18 163/124 100 11/07/16 05:26 11/07/16 05:26 11/07/16 05:26 11/07/16 05:26 11/07/16 05:26 Internal Med - H&P Results - Labs CBC & Chem 7: 11/06/16 23:40 11/06/16 23:40 Labs: Cardiac Enzymes 11/07/16 Range/Units 06:16 Troponin I 0.06 H* (0-0.03) ng/mL - Attending Attestation I performed a history and physical examination of the patient and discussed his management with the Resident/Gas Processing Plant Operator (Dr Mcqueen). I reviewed the residents note and agree with the documented findings and plan of care, with additions as below. With h/o ESRD on hemodialysis, COPD, CHF, and recurrent right pleural effusion. Presented to the ER with h/o right ear pain and increasing shortness breath. He was to have right middle ear infection and imaging showed large right pleural effusion with atelectasis. O/E: Diminished breath sounds on the right side. CXR: Large right pleural effusion. Labs reviewed. Mild elevation of troponin A/P: - Recurrent right pleural effusion: Pulmonary consultation for further management. - ESRD on HD: Apparently missed HD on 11/06/16. Will consult intelligence officer. - Right middle ear infection: on amoxicillin - Elevated troponin: Pt does not report chest pain. Trend troponins. Consider cardiology consult.
[2016-11-07] MEDS: Ondansetron ODT 4 MG TAB.RAPDIS SL PRN (05:59)
[2016-11-07] MEDS ORDERED: Amoxicillin 500 MG CAPSULE PO SCH (06:00)
[2016-11-07] MEDS ORDERED: Ipratropium/Albuterol Neb 3 ML IH PRN (06:05)
[2016-11-07] MEDS: hydrALAZINE 10 MG TABLET PO SCH ×4 (07:46→19:34)
[2016-11-07] MEDS: *HR* HYDROcodone/Acet 5/325 mg TABLET PO PRN ×3 (08:51→19:34)
[2016-11-07] MEDS: Furosemide 40 MG TABLET PO SCH (08:52)
[2016-11-07] MEDS: Aspirin Enteric Coated 81 MG Tablet PO SCH (08:52)
[2016-11-07] MEDS: Metoprolol XL (24 HR) Succ 50 MG TAB.ER.24H PO SCH (08:52)
[2016-11-07] MEDS ORDERED: 0.9 % Sodium Chloride 250 ML IV PRN (08:56)
--- NOTE | 2016-11-07 10:11 | Nephrology Consult Note ---
Date of Encounter: 11/07/16 Time of Encounter: 10:09 Assessment and Plan (1) ESRD (end stage renal disease) on dialysis Current Visit: No Status: Chronic Patient missed dialysis yesterday. Electrolytes WNL, Creatinine at baseline. Plan: -HD today for 3.5 hours (2) Pleural effusion Current Visit: No Status: Acute HD today. otherwise manage per primary care team History of Present Illness - Reason for Consult Consult date: 11/07/16 end stage renal disease - Chief Complaint dyspnea - History of Present Illness Mr. Snyder is a 31 y/o male with a PMH of ESRD on HD M/W/F, recurrent right pleural effusion, HTN, CHF, COPD who presented to the ED last night complaining of SOB for days. He states that he woke up yesterday feeling "fluish" and was too SOB and weak to go the HD, so he missed it yesterday. He has had his right pleural effusion drained many times over the last few months. He states that he needs to get a pleurX, but has not yet. He states that they drain 2L each time they do a thoracentesis. He states it was last drained 1 week ago. He also states that his abdomen is "hard as a rock" and he feels nausea. He states "I think it needs to be tapped" in regards to his abdomen. He has a suprapubic catheter in place that he states needs to be changed, along with a new leg bag. He does have trace urine production and denies any issues with the catheter. Past Med Surg Social Fam HX - Past Medical History Medical history: cardiomyopathy, CHF, dialysis, hypertension, renal disease Psychiatric history: depression - Past Surgical History Surgical History: orthopedic, other, vascular surgery - Social History Smoking Status: Current every day smoker Smokeless Tobacco Status: No Alcohol use: none Drug use: none - Family History Mother Adopted: No Living Status: Still Living Hx Family Cardiac Disorders: Yes Hx Family Respiratory Disorders: No Hx Family Cancer: No Hx Family GI Disorders: No Hx Family Endocrine Disorder: Yes (mother diabetes) Hx Family Neuromuscular Disorders: No Hx Family Neurologic Disorders: No Hx Family HEENT Disorders: No Hx Family Autoimmune Disorders: No Father Living Status: Still Living Hx Family Cardiac Disorders: Yes (CAD) Hx Family Respiratory Disorders: No Hx Family Cancer: No Hx Family GI Disorders: No Hx Family Endocrine Disorder: Yes (Diabetes) Hx Family Neuromuscular Disorders: No Hx Family Neurologic Disorders: No Hx Family HEENT Disorders: No Hx Family Autoimmune Disorders: No Medications and Allergies Aspirin Enteric Coated [Aspirin EC] 81 mg PO DAILY #30 tablet. 05/04/15 [Rx] Cinacalcet HCl [Sensipar] 60 mg PO DAILY 04/06/16 [History] Metoprolol XL (24 HR) Succ [Toprol Xl] 100 mg PO DAILY #90 tab.er.24h 07/08/16 [ Rx] Albuterol Sulfate [Albuterol Inhaler] 2 puff IH Q4HR #1 hfa.aer.ad 08/19/16 [Rx] Ipratropium/Albuterol Neb [Duoneb] 3 ml IH Q6HR 09/30/16 [History] Sevelamer [Renvela] 1,600 mg PO TIDWM 30 Days 10/20/16 [Rx] Fluticasone/Salmeterol [Advair 100-50 Diskus] 1 puff IH BID 11/07/16 [History] Furosemide [Lasix] 40 mg PO DAILY 11/07/16 [History] Hydralazine HCl 10 mg PO QID 11/07/16 [History] Allergies No Known Allergies Allergy (Verified 11/06/16 23:04) Review of Systems Constitutional: chills, excessive sweating, fatigue, lethargy, malaise, no fever (s) Cardiovascular: no chest pain, no leg edema Respiratory: dyspnea on exertion Gastrointestinal: nausea, no constipation, no diarrhea, no vomiting Integumentary: no rash Neurological: no numbness, no sensory deficit Endocrine: excessive sweating, fatigue Exam - Vital Signs Vital signs: Initial Vital Signs Temp Pulse Resp BP Pulse Ox 97.6 F 102 20 196/125 96 11/06/16 23:04 11/06/16 23:04 11/06/16 23:04 11/06/16 23:04 11/06/16 23:04 Vital Signs - Last 8 Hours Temp Pulse Resp BP Pulse Ox 11/07/16 05:26 97.6 F 88 18 163/124 100 11/07/16 05:17 99 Intake and Output 11/06/16 11/07/16 11/07/16 23:59 07:59 15:59 Other: Weight 139 kg Patient Weight 11/07/16 23:59 Weight 139 kg - General Appearance General appearance: well-developed, well-nourished EENT: mucous membranes moist Neck: no JVD, supple Respiratory: wheezing Cardiology: no murmurs, no rub, no gallops, no edema, regular rate, regular rhythm, normal S1, normal S2 Gastrointestinal: normoactive bowel sounds, no tenderness, no guarding, no masses, obese Integumentary: no rash, warm and dry Neurologic: no focal deficit, alert and oriented x3 Musculoskeletal: no erythema, no cyanosis, no clubbing Psychiatric: mood/affect appropriate, cooperative Results - Lab Results 11/06/16 23:40 11/06/16 23:40 Most recent lab results Calcium 10.7 mg/dL (8.6-10.8) 11/06/16 23:40 Phosphorus 6.6 mg/dL (2.3-4.7) H 11/06/16 23:40 Magnesium 2.5 mg/dL (1.6-2.6) 11/06/16 23:40 Consult Discharge Plan - Plan Referrals: Genoveva Pepper CNP [Partnered Physician] - 11/13/16 10:40 am Constantin March MD [Partnered Physician] - 11/14/16 2:15 pm Lavon Estrada Jr, MD [Primary Care Provider] - Lamont Mora DO [Partnered Physician] - 12/02/16 8:35 am
[2016-11-07] MEDS ORDERED: 0.9 % Sodium Chloride 2,000 ML ONE (12:57)
--- NOTE | 2016-11-07 13:40 | Event Note ---
<Quinten Ray - Last Filed: 11/07/16 13:32> Date of Encounter: 11/07/16 Time of Encounter: 13:32 Patient seen and examined at dialysis. Patient reports feeling better today, he states his shortness of breath and cough is improved. Denies chest pain, fever, chills. Physical exam: Vital signs stable. Heart: regular rate and rhythm, no murmurs, rubs, gallops. Lungs: diminished breath sounds right, no rales, rhonchi, wheezes. Abdomen:Soft, nontender, nondistended. Bowel sounds active. Extremities: 1+ pitting edema in the lower mulligan areas bilaterally. There is a functioning AV fistula in the left arm. Assessment/Plan: #1. Right-sided pleural effusion - this is a recurrent issue for the patient is at multiple times in the past that have all been transudative related to his underlying heart failure and renal disease. Has been evaluated by pulmonology and cardiothoracic surgery multiple times who feel he is not a good candidate for a Pleurx catheter or surgical intervention. Patient will have his regularly scheduled dialysis today to remove fluid. We will recheck chest x- ray in the morning. If the patient still has significant fluid accumulation we will perform thoracentesis in the a.m. No signs of pneumonia, malignancy, other causes of pleural effusion. #2. End-stage renal disease on dialysis - patient missed dialysis yesterday due to not feeling well. Nephrology is consulted and patient is undergoing dialysis currently. Plan for dialysis tomorrow as regularly scheduled. #3. Acute otitis media - patient is currently being treated with amoxicillin as an outpatient. We will renally dose this in conjunction with his dialysis. <Ralph Snyder A - Last Filed: 11/07/16 15:18> Date of Encounter: 11/07/16 Mr. Snyder is readmitted for similar symptoms as prior admissions. He is in dialysis currently. Will continue current plan as ordered.
[2016-11-07] MEDS: Amoxicillin 500 MG CAPSULE PO SCH (17:23)
--- NOTE | 2016-11-07 19:19 | Electrocardiograph Report ---
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
[2016-11-08] MEDS: *HR* HYDROcodone/Acet 5/325 mg TABLET PO PRN ×4 (00:38→22:17)
[2016-11-08] MEDS: Ondansetron ODT 4 MG TAB.RAPDIS SL PRN (05:18)
[2016-11-08 05:46] LABS: Basophils # 0.1 K/mcL (0.0-0.2); Basophils % 1.3 %; Eosinophils # 0.5 K/mcL (0.0-0.6); Eosinophils % 4.6 %; Hematocrit 41.9 % (37.5-50.1); Immature Granulocytes % 0.2 % (0-4); Lymphocytes # 2.6 K/mcL (0.6-4.6); Lymphocytes % 26.1 %; Mean Corpuscular HGB Conc 31.5 g/dL (31.6-35.5); Mean Corpuscular Hemoglobin 29.8 pg (28.0-33.3); Mean Corpuscular Volume 94.6 fL (83.0-100.0); Mean Platelet Volume 10.5 fL (9.4-12.4); Monocytes # 1.1 K/mcL (0.0-1.3); Monocytes % 11.6 %; Neutrophils # 5.5 K/mcL (1.6-8.9); Platelet Count 161 K/mcL (140-400); Red Blood Count 4.43 M/mcL (4.19-5.50); Red Cell Distribution Width 14.2 % (11.5-14.5); Segmented Neutrophils % 56.2 %
[2016-11-08 05:50] LABS: Hemoglobin 13.2 g/dL (12.9-16.9)
[2016-11-08 06:08] LABS: Calcium 9.3 mg/dL (8.6-10.8); Magnesium 1.9 mg/dL (1.6-2.6); Phosphorous 7.5 mg/dL (2.3-4.7)
[2016-11-08] MEDS ORDERED: 0.9 % Sodium Chloride 250 ML IV PRN (08:22)
[2016-11-08] MEDS: hydrALAZINE 10 MG TABLET PO SCH ×4 (08:24→23:35)
[2016-11-08] MEDS: Metoprolol XL (24 HR) Succ 50 MG TAB.ER.24H PO SCH (08:24)
[2016-11-08] MEDS: Furosemide 40 MG TABLET PO SCH (08:24)
[2016-11-08] MEDS: Aspirin Enteric Coated 81 MG Tablet PO SCH (08:24)
--- NOTE | 2016-11-08 08:26 | Nephrology Progress Note ---
Date of Encounter: 11/08/16 Time of Encounter: 10:00 - Assessment and Plan (1) ESRD (end stage renal disease) on dialysis Current Visit: No Status: Chronic Planning for HD today 4Hr, 2K, goal 4Kg UF Hyperphos: counseled him to improve dietary compliance and to strictly eat only if also taking the Phos binders at the beginning of meals and/or snacks. Avoid sumi and other high phos foods. Hgb was WNL Mild hyperkalemia and hyponatremia: to HD today Next HD would be planned for Friday. I am available over the weekend, if needed. Thank you. (2) Hyperkalemia Current Visit: No Status: Acute (3) Hyperphosphatemia Current Visit: No Status: Acute (4) Noncompliance with medication regimen Current Visit: No Status: Acute (5) Pleural effusion Current Visit: No Status: Acute Subjective Principal diagnosis: ESRD Interval history: Pt was s/e while on HD. He did not affirm N/V/D. He has a chest tube that continues to drain. Objective - Vital Signs Vital signs: Vital Signs Temp Pulse Resp BP Pulse Ox 11/08/16 06:25 97.8 F 66 15 136/94 99 11/08/16 05:11 97.9 F 84 18 143/104 96 11/08/16 01:22 18 100 11/07/16 20:53 97.8 F 71 18 129/77 95 11/07/16 14:43 71 18 128/78 95 11/07/16 12:30 130/84 11/07/16 12:15 123/80 11/07/16 12:00 120/80 11/07/16 11:45 117/73 11/07/16 11:30 18 124/76 11/07/16 11:15 97.6 F 18 163/124 Intake and Output 11/07/16 11/08/16 11/08/16 23:59 07:59 15:59 Intake Total 720 / 720 0 / 0 Output Total 0 / 0 Balance 720 / 720 0 / 0 Intake: Oral 720 / 720 0 / 0 Output: Catheter 0 / 0 Other: Meal Dinner Percent of Meal Consumed 50% - General Appearance General appearance: Present: well-developed, well-nourished, appears started age EENT: Present: ATNC, PERRL, mucous membranes moist Neck: Present: supple Respiratory: Present: course breath sounds Cardiology: Present: edema, regular rate, regular rhythm, normal S1, normal S2 Dialysis Vascular Access: Arteriovenous Fistula thrill: Yes bruit: Yes Gastrointestinal: Present: normoactive bowel sounds, no tenderness, no guarding Integumentary: Present: warm and dry Neurologic: Present: no focal deficit, no asterixis, alert and oriented x3 Musculoskeletal: Present: no deformities, no erythema, no cyanosis Psychiatric: Present: mood/affect appropriate, cooperative - Lab 11/11/16 05:30 11/11/16 05:30 Most recent lab results Calcium 9.3 mg/dL (8.6-10.8) 11/08/16 05:08 Phosphorus 7.5 mg/dL (2.3-4.7) H 11/08/16 05:08 Magnesium 1.9 mg/dL (1.6-2.6) 11/08/16 05:08 - VTE Documentation of Mechanical Device: Intermittent pneumatic compression device Consult Discharge Plan - Plan Referrals: Genoveva Pepper CNP [Partnered Physician] - 11/13/16 10:40 am Constantin March MD [Partnered Physician] - 11/14/16 2:15 pm Lavon Estrada Jr, MD [Primary Care Provider] - Lamont Mora DO [Partnered Physician] - 12/02/16 8:35 am
--- NOTE | 2016-11-08 08:52 | Internal Med Progress Note ---
<EllenQuinten lay - Last Filed: 11/08/16 08:50> Date of Encounter: 11/08/16 Time of Encounter: 08:50 - Assessment and plan (1) Pleural effusion Current Visit: No Status: Acute Assessment and plan: Recurrent. Patient has serial thoracentesis as an outpatient. All previous pleural fluid analysis showed transudate effusions, likely related to his underlying heart failure and end-stage renal disease. Patient has been evaluated multiple times by cardiothoracic surgery and pulmonology for more definitive treatment of his recurrent pleural effusions but has declined further treatment at that time. At this admission the patient is requesting more definitive treatment with chest tube placement and pleurodesis. We will consult CT surgery to evaluate the patient. (2) ESRD (end stage renal disease) on dialysis Current Visit: No Status: Chronic Assessment and plan: Patient normally has dialysis Friday, Friday, and Friday. Missed his dialysis session Friday but had dialysis yesterday and will have dialysis again today. Further management per nephrology. (3) CHF (congestive heart failure) Current Visit: No Status: Acute Assessment and plan: No evidence of acute exacerbation. Likely contributing to the patient's recurrent pleural effusion. Continue medical management. Qualifiers: Congestive heart failure type: unspecified congestive heart failure type Congestive heart failure chronicity: chronic Qualified Code(s): I50.9 - Heart failure, unspecified - Subjective Interval history: Patient seen and examined at bedside. Patient states he feels okay today. States the shortness breath is about same. Denies cough, fever, chills, chest pain - Constitutional Vitals: Temp Pulse Resp BP Pulse Ox 97.8 F 66 15 136/94 99 11/08/16 06:25 11/08/16 06:25 11/08/16 06:25 11/08/16 06:25 11/08/16 06:25 General appearance: Present: A&O X 3, no acute distress, answers questions appropriately - Respiratory Respiratory exam: Present: decreased breath sounds (On the right). Absent: rales, respiratory distress, rhonchi, wheezes, tachypnea - Cardiovascular Cardiovascular exam: Present: RRR. Absent: gallop, rubs, systolic murmur - GI/Abdominal GI/Abdominal exam: Present: distended, normal bowel sounds, soft - Extremities Exam Extremities exam: Present: pedal edema (1+). Absent: tenderness Additional comments: Left upper extremity fistula present with palpable thrill - Neurological Exam Neurological exam: Present: alert, oriented X3, no focal deficits Internal Medicine: Result - Labs CBC & Chem 7: 11/08/16 05:08 11/08/16 05:08 Labs: Short CBC 11/08/16 Range/Units 05:08 WBC 9.8 (4.3-11.1) K/mcL Hgb 13.2 D (12.9-16.9) g/dL Hct 41.9 (37.5-50.1) % Plt Count 161 (140-400) K/mcL Neutrophils # 5.5 (1.6-8.9) K/mcL BMP 11/08/16 05:08 Sodium 134 L Potassium 5.0 H Chloride 93 L Carbon Dioxide 27 BUN 51 H Creatinine 9.42 H Glucose 92 Calcium 9.3 - ABG Interpretation ABG results: PT/INR, D-dimer PT 12.8 Seconds (9.4-12.1) H 11/06/16 23:40 - Impressions Impressions Chest X-Ray 11/08/16 07:00 IMPRESSION: Persistent large right pleural effusion with volume loss in the right lung base. Underlying mass in the right lung cannot be excluded. D/ / 11/08/2016 07:46:53 Jerel Sutherland MD / [facility] Interpreting Provider: Jerel Sutherland MD - VTE Documentation of Mechanical Device: Intermittent pneumatic compression device Consult Discharge Plan - Plan Referrals: Genoveva Pepper CNP [Partnered Physician] - 11/13/16 10:40 am Constantin March MD [Partnered Physician] - 11/14/16 2:15 pm Lavon Estrada Jr, MD [Primary Care Provider] - Lamont Mora DO [Partnered Physician] - 12/02/16 8:35 am <Ralph Snyder - Last Filed: 11/08/16 14:16> Date of Encounter: 11/08/16 - Assessment and plan (1) Pleural effusion Current Visit: No Status: Acute (2) Acute on chronic systolic heart failure Current Visit: Yes Status: Acute (3) Suprapubic catheter Current Visit: No Status: Acute (4) Chronic venous stasis dermatitis of both lower extremities Current Visit: No Status: Chronic (5) Tobacco abuse Current Visit: No Status: Chronic (6) Hypertension Current Visit: No Status: Chronic Qualifiers: Hypertension type: secondary to other renal disorders Qualified Code(s): I15.1 - Hypertension secondary to other renal disorders; N28.89 - Other specified disorders of kidney and ureter (7) ESRD (end stage renal disease) on dialysis Current Visit: No Status: Chronic - Constitutional Vitals: Temp Pulse Resp BP Pulse Ox 97.9 F 65 15 133/84 95 11/08/16 12:14 11/08/16 12:14 11/08/16 12:14 11/08/16 12:14 11/08/16 12:14 Internal Medicine: Result - Labs CBC & Chem 7: 11/08/16 05:08 11/08/16 05:08 Labs: Short CBC 11/08/16 Range/Units 05:08 WBC 9.8 (4.3-11.1) K/mcL Hgb 13.2 D (12.9-16.9) g/dL Hct 41.9 (37.5-50.1) % Plt Count 161 (140-400) K/mcL Neutrophils # 5.5 (1.6-8.9) K/mcL BMP 11/08/16 05:08 Sodium 134 L Potassium 5.0 H Chloride 93 L Carbon Dioxide 27 BUN 51 H Creatinine 9.42 H Glucose 92 Calcium 9.3 - ABG Interpretation ABG results: PT/INR, D-dimer PT 12.8 Seconds (9.4-12.1) H 11/06/16 23:40 - Impressions Impressions Chest X-Ray 11/08/16 07:00 IMPRESSION: Persistent large right pleural effusion with volume loss in the right lung base. Underlying mass in the right lung cannot be excluded. D/ / 11/08/2016 07:46:53 Jerel Sutherland MD / [email or web address] Interpreting Provider: Jerel Sutherland MD - Attending Attestation I examined this patient and my medical decision-making was reviewed with the Resident Physician on 11/08/16. I agree with the documented findings, disposition and treatment plan as described except to the extent set forth below. Mr. Snyder is currently admitted for acute hypoxic resp failure due to recurrent pleural effusion. He is moderate to high risk due to potential for worsening respiratory status. Mr. Snyder is up and about in his room. He had dialysis yesterday and is regularly scheduled today as well. He has been seen by CTS and will have a chest tube placed to drain the pleural effusion. Pleurodesis is planned to be done after a few days. Exam Alert. No distress currently Heart reg Decreased breath sounds I/P 1. Pleural effusion 2. ESRD Further diagnoses and plan as above.
[2016-11-08] MEDS ORDERED: Vancomycin 1 EACH in D5% in Water 250 ML IVPB SCH (09:00)
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
[2016-11-08] MEDS ORDERED: 0.9 % Sodium Chloride 2,000 ML ONE (14:22)
[2016-11-08] MEDS ORDERED: *HR* FentaNYL (PF) 100 MCG/2 ML VIAL IV PRN (14:57)
--- NOTE | 2016-11-08 15:42 | IR Procedure Note ---
Date of procedure: 11/08/16 Consent Obtained: Verbal consent, Written consent Timeout: Correct patient and procedure verified, Correct site verified, Time out performed, Skin prep completed Local anesthetic: Lidocaine 1% Indications: pleural effusion Procedure Performed: chest tube insertion Site/Technique: right, 12F pigtail Results/Findings: serous fluid Estimated blood loss (cc): 1 Complications: None; Tolerated procedure well Post Procedure Treatment Plan: CXR; 20 cm H20 suction; clamp tube for 1 hour if output > 1.5L/hr
[2016-11-08] MEDS ORDERED: Vancomycin 2,000 MG in D5% in Water 500 ML IVPB ONE (17:00)
[2016-11-08] MEDS: Amoxicillin 500 MG CAPSULE PO SCH (23:34)
[2016-11-09] MEDS: *HR* HYDROcodone/Acet 5/325 mg TABLET PO PRN ×3 (02:19→14:18)
[2016-11-09] MEDS ORDERED: *HR* Morphine 2 MG/ML SYRINGE IVP ONE (03:07)
[2016-11-09 07:23] LABS: Basophils # 0.1 K/mcL (0.0-0.2); Basophils % 1.2 %; Eosinophils # 0.4 K/mcL (0.0-0.6); Hematocrit 39.3 % (37.5-50.1); Hemoglobin 12.9 g/dL (12.9-16.9); Immature Granulocytes % 0.3 % (0-4); Lymphocytes # 2.2 K/mcL (0.6-4.6); Lymphocytes % 21.4 %; Mean Corpuscular HGB Conc 32.8 g/dL (31.6-35.5); Mean Corpuscular Hemoglobin 30.9 pg (28.0-33.3); Mean Platelet Volume 10.6 fL (9.4-12.4); Monocytes # 0.9 K/mcL (0.0-1.3); Monocytes % 8.4 %; Neutrophils # 6.8 K/mcL (1.6-8.9); Platelet Count 176 K/mcL (140-400); Red Blood Count 4.18 M/mcL (4.19-5.50); Red Cell Distribution Width 14.1 % (11.5-14.5); Segmented Neutrophils % 64.7 %
[2016-11-09 07:37] LABS: Calcium 9.1 mg/dL (8.6-10.8); Magnesium 2.1 mg/dL (1.6-2.6); Phosphorous 7.6 mg/dL (2.3-4.7); Potassium 4.7 mEq/L (3.5-4.5)
[2016-11-09] MEDS: Metoprolol XL (24 HR) Succ 50 MG TAB.ER.24H PO SCH (08:41)
[2016-11-09] MEDS: Aspirin Enteric Coated 81 MG Tablet PO SCH (08:41)
[2016-11-09] MEDS: hydrALAZINE 10 MG TABLET PO SCH ×4 (08:41→21:22)
[2016-11-09] MEDS: *HR* OxyCODONE/APAP 5/325 TABLET PO PRN ×3 (08:41→21:23)
[2016-11-09] MEDS: Furosemide 40 MG TABLET PO SCH (08:41)
--- NOTE | 2016-11-09 09:06 | Internal Med Progress Note ---
<EllenQuinten lay - Last Filed: 11/09/16 09:04> Date of Encounter: 11/09/16 Time of Encounter: 09:04 - Assessment and plan (1) Pleural effusion Current Visit: No Status: Acute Assessment and plan: Recurrent. Patient has serial thoracentesis as an outpatient. All previous pleural fluid analysis showed transudate effusions, likely related to his underlying heart failure and end-stage renal disease. Patient had chest tube placed by IR yesterday and has drained approximately 8 L of fluid. Cardiothoracic surgeries following the completion and once the patient's pleural spaces dry they will instill talc for sclerosis. Patient is stable at this time, no evidence of reexpansion pulmonary edema. Further management per CT surgery. (2) ESRD (end stage renal disease) on dialysis Current Visit: No Status: Chronic Assessment and plan: Patient normally has dialysis Friday, Friday, and Friday. Patient had dialysis last 2 days. Is back on his regular schedule. Further management per nephrology. (3) CHF (congestive heart failure) Current Visit: No Status: Acute Assessment and plan: No evidence of acute exacerbation. Likely contributing to the patient's recurrent pleural effusion. Continue medical management. Qualifiers: Congestive heart failure type: unspecified congestive heart failure type Congestive heart failure chronicity: chronic Qualified Code(s): I50.9 - Heart failure, unspecified - Subjective Interval history: Patient seen and examined at bedside. Patient states he feels okay today. States the shortness breath is improved. He does report some discomfort at his chest tube site. - Constitutional Vitals: Temp Pulse Resp BP Pulse Ox 97.3 F L 71 18 124/76 95 11/09/16 07:29 11/09/16 07:29 11/09/16 07:29 11/09/16 07:29 11/09/16 08:00 General appearance: Present: A&O X 3, no acute distress, answers questions appropriately - Respiratory Respiratory exam: Present: decreased breath sounds (On right, improved). Absent : rales, rhonchi, wheezes, tachypnea - Cardiovascular Cardiovascular exam: Present: RRR. Absent: gallop, rubs, systolic murmur - GI/Abdominal GI/Abdominal exam: Present: normal bowel sounds, soft. Absent: tenderness - Extremities Exam Extremities exam: Present: pedal edema (1+). Absent: tenderness Internal Medicine: Result - Labs CBC & Chem 7: 11/09/16 06:24 11/09/16 06:24 Labs: Short CBC 11/09/16 Range/Units 06:24 WBC 10.5 (4.3-11.1) K/mcL Hgb 12.9 (12.9-16.9) g/dL Hct 39.3 (37.5-50.1) % Plt Count 176 (140-400) K/mcL Neutrophils # 6.8 (1.6-8.9) K/mcL BMP 11/09/16 06:24 Sodium 135 L Potassium 4.7 H Chloride 95 L Carbon Dioxide 25 BUN 54 H Creatinine 9.41 H Glucose 97 Calcium 9.1 - ABG Interpretation ABG results: PT/INR, D-dimer PT 12.8 Seconds (9.4-12.1) H 11/06/16 23:40 - Impressions Impressions Retroperitoneal Abscess Drainage 11/08/16 00:00 IMPRESSION: Successful ultrasound-guided placement of a right pigtail chest tube. D/ / 11/08/2016 16:01:30 Smith Watson MD / [facility] Interpreting Provider: Smith Watson MD Chest X-Ray 11/08/16 07:00 IMPRESSION: Persistent large right pleural effusion with volume loss in the right lung base. Underlying mass in the right lung cannot be excluded. D/ / 11/08/2016 07:46:53 Jerel Sutherland MD / [facility] Interpreting Provider: Jerel Sutherland MD Chest X-Ray 11/08/16 15:27 IMPRESSION: No pneumothorax following right pigtail chest tube placement. Large right pleural effusion, increased from prior exam. Unchanged cardiomegaly. D/ / 11/08/2016 16:03:54 Smith Watson MD / [facility] Interpreting Provider: Smith Watson MD Chest X-Ray 11/09/16 00:01 IMPRESSION: Status post small bore right basilar chest tube with near complete resolution of the previous seen large right pleural effusion and right basilar atelectasis. D/ / Stone Astorga MD / Stone Astorga MD Interpreting Provider: Stone Astorga MD - VTE Documentation of Mechanical Device: Intermittent pneumatic compression device Consult Discharge Plan - Plan Referrals: Genoveva Pepper CNP [Partnered Physician] - 11/13/16 10:40 am Constantin March MD [Partnered Physician] - 11/14/16 2:15 pm Lavon Estrada Jr, MD [Primary Care Provider] - Lamont Mora DO [Partnered Physician] - 12/02/16 8:35 am <Ralph Snyder - Last Filed: 11/09/16 15:28> - Assessment and plan (1) Pleural effusion Current Visit: No Status: Acute (2) Acute on chronic systolic heart failure Current Visit: Yes Status: Acute Assessment and plan: Seems to be doing a little better with CT drainage and dialysis. (3) Suprapubic catheter Current Visit: No Status: Acute (4) Chronic venous stasis dermatitis of both lower extremities Current Visit: No Status: Chronic (5) Tobacco abuse Current Visit: No Status: Chronic (6) Hypertension Current Visit: No Status: Chronic Qualifiers: Hypertension type: secondary to other renal disorders Qualified Code(s): I15.1 - Hypertension secondary to other renal disorders; N28.89 - Other specified disorders of kidney and ureter (7) ESRD (end stage renal disease) on dialysis Current Visit: No Status: Chronic (8) Status post chest tube placement Current Visit: Yes Status: Acute Assessment and plan: Chest tube - Constitutional Vitals: Temp Pulse Resp BP Pulse Ox 97.8 F 66 16 92/73 97 11/09/16 15:13 11/09/16 15:13 11/09/16 15:13 11/09/16 15:13 11/09/16 15:13 Internal Medicine: Result - Labs CBC & Chem 7: 11/09/16 06:24 11/09/16 06:24 Labs: Short CBC 11/09/16 Range/Units 06:24 WBC 10.5 (4.3-11.1) K/mcL Hgb 12.9 (12.9-16.9) g/dL Hct 39.3 (37.5-50.1) % Plt Count 176 (140-400) K/mcL Neutrophils # 6.8 (1.6-8.9) K/mcL BMP 11/09/16 06:24 Sodium 135 L Potassium 4.7 H Chloride 95 L Carbon Dioxide 25 BUN 54 H Creatinine 9.41 H Glucose 97 Calcium 9.1 - ABG Interpretation ABG results: PT/INR, D-dimer PT 12.8 Seconds (9.4-12.1) H 11/06/16 23:40 - Impressions Impressions Retroperitoneal Abscess Drainage 11/08/16 00:00 IMPRESSION: Successful ultrasound-guided placement of a right pigtail chest tube. D/ / 11/08/2016 16:01:30 Smith Watson MD / [facility] Interpreting Provider: Smith Watson MD Chest X-Ray 11/08/16 15:27 IMPRESSION: No pneumothorax following right pigtail chest tube placement. Large right pleural effusion, increased from prior exam. Unchanged cardiomegaly. D/ : / 11/08/2016 16:03:54 Smith Watson MD / [facility] Interpreting Provider: Smith Watson MD Chest X-Ray 11/09/16 00:01 IMPRESSION: Status post small bore right basilar chest tube with near complete resolution of the previous seen large right pleural effusion and right basilar atelectasis. D/ / Stone Astorga MD / Stone Astorga MD Interpreting Provider: Stone Astorga MD - Attending Attestation I examined this patient and my medical decision-making was reviewed with the Resident Physician on 11/09/16. I agree with the documented findings, disposition and treatment plan as described except to the extent set forth below. Mr. Snyder is currently admitted for respiratory distress due to large R pleural effusion. He is s/p chest tube and drainage. He remains moderate to high risk due to chest tube and potential for worsening respiratory issues. Mr. Snyder is having some pain with movement and in chest tube site. Breathing is OK today. He did have dialysis last night. No fever or chills. Has had over [address] Exam alert. comfortable currently Heart reg Lungs diminished I/P 1. Large R pleural effusion s/p CT 2. ESRD on HD Further diagnoses and plan as above.
--- NOTE | 2016-11-09 10:21 | Cardiothoracic Progress Note ---
Date of Encounter: 11/09/16 Time of Encounter: 10:19 - Assessment and plan (1) Dyspnea Current Visit: Yes Status: Acute We will continue to maintain the chest tube to suction. Once the drainage is less than approximately 150 mL in an 8 hour period we will instill talc. Qualifiers: Dyspnea type: unspecified Qualified Code(s): R06.00 - Dyspnea, unspecified - Subjective Interval history: The patient had a chest tube placed in interventional radiology yesterday. He complains of mild nausea and pain around his chest tube site. Vital Signs, Last 4 Hours Temp Pulse Resp BP Pulse Ox 11/09/16 08:00 95 11/09/16 07:29 97.3 F L 71 18 124/76 95 11/09/16 06:20 97.8 F 72 18 138/99 97 Oxgyen Flow Rate Oxygen Flow Rate (LPM) 0 Clinical Data, last 8 Hours Output, Chest Tube Drainage 100 Amount [Right Lower Posterior Chest] Output, Chest Tube Drainage 500 Amount [Right Lower Posterior Chest] Output, Chest Tube Drainage 2,100 Amount [Right Lower Posterior Chest] Weight 11/07/16 11/08/16 11/09/16 23:59 23:59 23:59 Weight 139 kg 139 kg 138 kg Lungs are clear to percussion and auscultation. The patient has drained over 4 L of fluid from his right chest and continues to drain approximately 100 mL/h. Chest x-ray looks quite clear. - Labs 11/09/16 06:24 11/09/16 06:24 Lab Results, Last 24 hours 11/09/16 11/09/16 06:24 06:24 WBC 10.5 Hgb 12.9 Hct 39.3 Plt Count 176 Sodium 135 L Potassium 4.7 H Chloride 95 L Carbon Dioxide 25 BUN 54 H Creatinine 9.41 H Glucose 97 Calcium 9.1 Magnesium 2.1 - VTE Documentation of Mechanical Device: Intermittent pneumatic compression device Consult Discharge Plan - Plan Referrals: Genoveva Pepper CNP [Partnered Physician] - 11/13/16 10:40 am Constantin March MD [Partnered Physician] - 11/14/16 2:15 pm Lavon Estrada Jr, MD [Primary Care Provider] - Lmaont Mora DO [Partnered Physician] - 12/02/16 8:35 am
[2016-11-09] MEDS: Ondansetron ODT 4 MG TAB.RAPDIS SL PRN (11:46)
[2016-11-09] MEDS: Amoxicillin 500 MG CAPSULE PO SCH (18:13)
[2016-11-10] MEDS: *HR* HYDROcodone/Acet 5/325 mg TABLET PO PRN (00:19)
[2016-11-10] MEDS: *HR* OxyCODONE/APAP 5/325 TABLET PO PRN ×2 (06:18→17:11)
[2016-11-10 06:39] LABS: Basophils # 0.1 K/mcL (0.0-0.2); Basophils % 1.2 %; Eosinophils # 0.4 K/mcL (0.0-0.6); Hematocrit 39.9 % (37.5-50.1); Hemoglobin 12.9 g/dL (12.9-16.9); Immature Granulocytes % 0.1 % (0-4); Lymphocytes # 2.2 K/mcL (0.6-4.6); Lymphocytes % 26.3 %; Mean Corpuscular HGB Conc 32.3 g/dL (31.6-35.5); Mean Corpuscular Hemoglobin 30.6 pg (28.0-33.3); Mean Corpuscular Volume 94.8 fL (83.0-100.0); Mean Platelet Volume 10.8 fL (9.4-12.4); Monocytes # 0.8 K/mcL (0.0-1.3); Monocytes % 9.5 %; Neutrophils # 4.9 K/mcL (1.6-8.9); Platelet Count 158 K/mcL (140-400); Red Blood Count 4.21 M/mcL (4.19-5.50); Red Cell Distribution Width 14.1 % (11.5-14.5); Segmented Neutrophils % 57.9 %
[2016-11-10 06:59] LABS: Calcium 8.9 mg/dL (8.6-10.8); Phosphorous 8.5 mg/dL (2.3-4.7); Potassium 5.2 mEq/L (3.5-4.5)
[2016-11-10] MEDS: hydrALAZINE 10 MG TABLET PO SCH ×4 (07:52→19:57)
[2016-11-10] MEDS: Aspirin Enteric Coated 81 MG Tablet PO SCH (07:52)
[2016-11-10] MEDS: Metoprolol XL (24 HR) Succ 50 MG TAB.ER.24H PO SCH (07:52)
[2016-11-10] MEDS: Furosemide 40 MG TABLET PO SCH (07:52)
--- NOTE | 2016-11-10 09:03 | Cardiothoracic Progress Note ---
Date of Encounter: 11/10/16 Time of Encounter: 09:00 - Assessment and plan (1) Dyspnea Current Visit: Yes Status: Acute The patient is draining too much fluid for sclerosis at this point. I discussed possible surgery with the patient. This would include a right thoracoscopy with pleural biopsy, mechanical pleurodesis, chemical pleurodesis and placement of 2 large bore chest tubes. Risks would include possible thoracotomy, pneumothorax, continued or recurrent pleural effusion, infection, renal or respiratory failure , myocardial infarction, and pulmonary embolism. He will consider. He is due for dialysis tomorrow. If he does want surgery, we could proceed on Friday. Qualifiers: Dyspnea type: unspecified Qualified Code(s): R06.00 - Dyspnea, unspecified - Subjective Interval history: The patient has no complaints. Vital Signs, Last 4 Hours Temp Pulse Resp BP Pulse Ox 11/10/16 07:25 97 F L 73 16 121/90 96 Oxgyen Flow Rate Oxygen Flow Rate (LPM) 0 Clinical Data, last 8 Hours Output, Chest Tube Drainage 530 Amount [Right Lower Posterior Chest] Weight 11/08/16 11/09/16 11/10/16 23:59 23:59 23:59 Weight 139 kg 138 kg 129.6 kg Lungs are clear to percussion and auscultation. The chest tube continues to drain large amounts. He put out 1000 mL over the last 12 hours. Chest x-ray reveals a small apical pneumothorax. - Labs 11/10/16 05:58 11/10/16 05:58 Lab Results, Last 24 hours 11/10/16 11/10/16 05:58 05:58 WBC 8.4 Hgb 12.9 Hct 39.9 Plt Count 158 Sodium 133 L Potassium 5.2 H Chloride 93 L Carbon Dioxide 25 BUN 72 H D Creatinine 10.67 H Glucose 86 Calcium 8.9 Magnesium 2.0 - VTE Documentation of Mechanical Device: Intermittent pneumatic compression device Consult Discharge Plan - Plan Referrals: Genoveva Pepper CNP [Partnered Physician] - 11/13/16 10:40 am Constantin March MD [Partnered Physician] - 11/14/16 2:15 pm Lavon Estrada Jr, MD [Primary Care Provider] - Lamont Mora DO [Partnered Physician] - 12/02/16 8:35 am
--- NOTE | 2016-11-10 09:40 | Internal Med Progress Note ---
<EllenQuinten lay - Last Filed: 11/10/16 09:38> Date of Encounter: 11/10/16 Time of Encounter: 09:38 - Assessment and plan (1) Pleural effusion Current Visit: No Status: Acute Assessment and plan: Recurrent. Patient has serial thoracentesis as an outpatient. All previous pleural fluid analysis showed transudate effusions, likely related to his underlying heart failure and end-stage renal disease. Patient had chest tube placed by IR yesterday and has drained approximately 8 L of fluid. Cardiothoracic surgery following the patient and tentatively planning for thoracotomy with pleurodesis in the next 1-2 days. Patient is stable at this time, no evidence of reexpansion pulmonary edema. Further management per CT surgery. (2) ESRD (end stage renal disease) on dialysis Current Visit: No Status: Chronic Assessment and plan: Patient normally has dialysis Friday, Friday, and Friday. Patient Is back on his regular schedule, will likely get dialysis tomorrow. Further management per nephrology. (3) CHF (congestive heart failure) Current Visit: No Status: Acute Assessment and plan: No evidence of acute exacerbation. Likely contributing to the patient's recurrent pleural effusion. Continue medical management. Qualifiers: Congestive heart failure type: unspecified congestive heart failure type Congestive heart failure chronicity: chronic Qualified Code(s): I50.9 - Heart failure, unspecified (4) DVT prophylaxis Current Visit: No Status: Acute Assessment and plan: Patient has EPCD's ordered, patient is very ambulatory at this time. We will hold off on pharmacologic prophylaxis given the patient's chest tube and also scheduled dialysis. - Subjective Interval history: Patient seen and examined at bedside. Patient states he feels okay today. States the shortness breath is much improved. He does report some discomfort at his chest tube site that occasionally become severe. - Constitutional Vitals: Temp Pulse Resp BP Pulse Ox 97 F L 73 16 121/90 96 11/10/16 07:25 11/10/16 07:25 11/10/16 07:25 11/10/16 07:25 11/10/16 08:00 General appearance: Present: A&O X 3, no acute distress, answers questions appropriately - Respiratory Respiratory exam: Present: CTAB. Absent: rales, respiratory distress, rhonchi, wheezes, tachypnea - Cardiovascular Cardiovascular exam: Present: RRR. Absent: gallop, rubs, systolic murmur - GI/Abdominal GI/Abdominal exam: Present: normal bowel sounds, soft. Absent: distended, tenderness - Neurological Exam Neurological exam: Present: alert, CN II-XII intact, oriented X3, no focal deficits Internal Medicine: Result - Labs CBC & Chem 7: 11/10/16 05:58 11/10/16 05:58 Labs: Short CBC 11/10/16 Range/Units 05:58 WBC 8.4 (4.3-11.1) K/mcL Hgb 12.9 (12.9-16.9) g/dL Hct 39.9 (37.5-50.1) % Plt Count 158 (140-400) K/mcL Neutrophils # 4.9 (1.6-8.9) K/mcL BMP 11/10/16 05:58 Sodium 133 L Potassium 5.2 H Chloride 93 L Carbon Dioxide 25 BUN 72 H D Creatinine 10.67 H Glucose 86 Calcium 8.9 - ABG Interpretation ABG results: PT/INR, D-dimer PT 12.8 Seconds (9.4-12.1) H 11/06/16 23:40 - Impressions Impressions Chest X-Ray 11/10/16 00:01 IMPRESSION: Small right-sided pneumothorax. D/ / Dl Adames MD / Dl Adames MD Interpreting Provider: Dl Adames MD - VTE Documentation of Mechanical Device: Intermittent pneumatic compression device Consult Discharge Plan - Plan Referrals: Genoveva Pepper CNP [Partnered Physician] - 11/13/16 10:40 am Constantin March MD [Partnered Physician] - 11/14/16 2:15 pm Lavon Estrada Jr, MD [Primary Care Provider] - Lamont Mora DO [Partnered Physician] - 12/02/16 8:35 am <Ralph Snyder - Last Filed: 11/10/16 19:18> - Assessment and plan (1) Pleural effusion Current Visit: No Status: Acute (2) Acute on chronic systolic heart failure Current Visit: Yes Status: Acute (3) Suprapubic catheter Current Visit: No Status: Acute (4) Chronic venous stasis dermatitis of both lower extremities Current Visit: No Status: Chronic (5) Tobacco abuse Current Visit: No Status: Chronic (6) Hypertension Current Visit: No Status: Chronic Qualifiers: Hypertension type: secondary to other renal disorders Qualified Code(s): I15.1 - Hypertension secondary to other renal disorders; N28.89 - Other specified disorders of kidney and ureter (7) ESRD (end stage renal disease) on dialysis Current Visit: No Status: Chronic (8) Status post chest tube placement Current Visit: Yes Status: Acute - Constitutional Vitals: Temp Pulse Resp BP Pulse Ox 97.6 F 59 18 115/71 95 11/10/16 16:26 11/10/16 16:26 11/10/16 16:26 11/10/16 16:26 11/10/16 16:26 Internal Medicine: Result - Labs CBC & Chem 7: 11/10/16 05:58 11/10/16 05:58 Labs: Short CBC 11/10/16 Range/Units 05:58 WBC 8.4 (4.3-11.1) K/mcL Hgb 12.9 (12.9-16.9) g/dL Hct 39.9 (37.5-50.1) % Plt Count 158 (140-400) K/mcL Neutrophils # 4.9 (1.6-8.9) K/mcL BMP 11/10/16 05:58 Sodium 133 L Potassium 5.2 H Chloride 93 L Carbon Dioxide 25 BUN 72 H D Creatinine 10.67 H Glucose 86 Calcium 8.9 - ABG Interpretation ABG results: PT/INR, D-dimer PT 12.8 Seconds (9.4-12.1) H 11/06/16 23:40 - Impressions Impressions Chest X-Ray 11/10/16 00:01 IMPRESSION: Small right-sided pneumothorax. D/ / Dl Adames MD / Dl Adames MD Interpreting Provider: Dl Adames MD - Attending Attestation I examined this patient and my medical decision-making was reviewed with the Resident Physician on 11/10/16. I agree with the documented findings, disposition and treatment plan as described except to the extent set forth below. Mr. Snyder is currently admitted for massive pleural effusion and ESRD. He is moderate to high risk due to potential for worsening respiratory status. Mr. Snyder is feeling OK at this time. Pain is fairly controlled and some pain meds added. Breathing has been OK. Exam Alert. Comfortable Heart reg Decreased breath sounds. I/P 1. Pleural effusion 2. ESRD Further diagnoses and plan as above
--- NOTE | 2016-11-10 09:59 | Event Note ---
Date of Encounter: 11/10/16 Time of Encounter: 09:58 Nephrology Chart Review Reviewed labs, meds, vitals and outpt. Appreciate hospitalists and Cardiothoracic surgery. Next HD is planned for tomorrow (Friday). Thank you.
[2016-11-10] MEDS: *HR* HYDROmorphone (PF) 1 MG/ML SYRINGE IVP PRN (11:46)
[2016-11-10] MEDS ORDERED: Aminoglycoside Consult 1 EACH MC ONE (12:03)
[2016-11-10] MEDS: Amoxicillin 500 MG CAPSULE PO SCH (17:11)
[2016-11-11] MEDS: *HR* HYDROmorphone (PF) 1 MG/ML SYRINGE IVP PRN ×2 (00:10→15:34)
[2016-11-11 06:12] LABS: Basophils # 0.1 K/mcL (0.0-0.2); Eosinophils # 0.4 K/mcL (0.0-0.6); Eosinophils % 5.6 %; Hematocrit 36.5 % (37.5-50.1); Immature Granulocytes % 0.3 % (0-4); Lymphocytes # 1.8 K/mcL (0.6-4.6); Lymphocytes % 24.5 %; Mean Corpuscular HGB Conc 32.9 g/dL (31.6-35.5); Mean Corpuscular Volume 91.3 fL (83.0-100.0); Mean Platelet Volume 10.4 fL (9.4-12.4); Monocytes # 0.7 K/mcL (0.0-1.3); Monocytes % 9.9 %; Neutrophils # 4.3 K/mcL (1.6-8.9); Platelet Count 158 K/mcL (140-400); Segmented Neutrophils % 58.7 %
[2016-11-11 06:23] LABS: Calcium 8.6 mg/dL (8.6-10.8); Potassium 5.9 mEq/L (3.5-4.5)
[2016-11-11] MEDS: *HR* OxyCODONE/APAP 5/325 TABLET PO PRN ×2 (07:05→20:47)
[2016-11-11] MEDS: Aspirin Enteric Coated 81 MG Tablet PO SCH (07:05)
[2016-11-11] MEDS ORDERED: 0.9 % Sodium Chloride 250 ML IV PRN (07:46)
[2016-11-11] MEDS ORDERED: Nicotine 7 MG PATCH.TD24 TD SCH (09:00)
--- NOTE | 2016-11-11 09:01 | Cardiothoracic Progress Note ---
Date of Encounter: 11/11/16 Time of Encounter: 08:59 - Assessment and plan (1) Pleural effusion Current Visit: No Status: Acute The patient has a persistent pneumothorax after the pleural effusion was drained via chest tube. This is a chronic effusion which continues to reaccumulate. The patient will probably need operative intervention. Initially a right thoracoscopy with both chemical and mechanical pleurodesis would be attempted; however, if there is evidence of a pleural peel the patient will need a right thoracotomy and decortication prior to the chemical and mechanical pleurodesis. Tentatively the patient is scheduled for this procedure tomorrow. The assessment and plan as outlined above was discussed with the patient and/or family members who expressed understanding and agreement. All questions were answered. - Subjective Interval history: The patient is sitting comfortably at his bedside. He is breathing comfortably. He has no complaints. Vital Signs, Last 4 Hours Temp Pulse Resp BP Pulse Ox 11/11/16 07:45 97.3 F L 59 15 126/85 97 11/11/16 07:05 97 11/11/16 05:25 97.3 F L 64 18 114/67 94 L Oxgyen Flow Rate Oxygen Flow Rate (LPM) 0 Clinical Data, last 8 Hours Output, Chest Tube Drainage 500 Amount [Right Lower Posterior Chest] Weight 11/09/16 11/10/16 11/11/16 23:59 23:59 23:59 Weight 138 kg 129.6 kg 130.5 kg - Physical Examination General: Conversant, No Apparent Distress Neck: No JVD, Normal carotid pulses Cardiac: Reg Rate and Rhythm, Normal S1 and S2, No Murmur Incision: No signs of infection Chest tubes: Minimal drainage (300 mL/12 hours.), Other (No air leak.) Lungs: Normal Breath Sounds, No Wheeze, Rales, Rhonchi Neuro: Alert and responsive, No focal deficits noted Vascular: Normal capillary refill Extremities: No Clubbing, No Cyanosis, No Edema - Labs 11/11/16 05:30 11/11/16 05:30 Lab Results, Last 24 hours 11/11/16 11/11/16 05:30 05:30 WBC 7.3 Hgb 12.0 L Hct 36.5 L Plt Count 158 Sodium 131 L Potassium 5.9 H Chloride 93 L Carbon Dioxide 24 BUN 84 H Creatinine 11.93 H Glucose 95 Calcium 8.6 - Imaging Chest Xray: image reviewed (Right pneumothorax, unchanged.) - VTE Documentation of Mechanical Device: Intermittent pneumatic compression device Consult Discharge Plan - Plan Referrals: Genoveva Pepper CNP [Partnered Physician] - 11/13/16 10:40 am Constantin March MD [Partnered Physician] - 11/14/16 2:15 pm Lavon Estrada Jr, MD [Primary Care Provider] - Lamont Mora DO [Partnered Physician] - 12/02/16 8:35 am
[2016-11-11] MEDS ORDERED: 0.9 % Sodium Chloride 2,000 ML ONE (09:39)
--- NOTE | 2016-11-11 10:40 | Internal Med Progress Note ---
<Quinten Ray - Last Filed: 11/11/16 10:38> Date of Encounter: 11/11/16 Time of Encounter: 10:38 - Assessment and plan (1) Pleural effusion Current Visit: No Status: Acute Assessment and plan: Recurrent. Patient has serial thoracentesis as an outpatient. All previous pleural fluid analysis showed transudate effusions, likely related to his underlying heart failure and end-stage renal disease. Patient had chest tube placed by IR yesterday and has drained approximately 8 L of fluid. Cardiothoracic surgery following the patient and tentatively planning for thoracotomy with pleurodesis tomorrow. Patient is stable at this time, no evidence of reexpansion pulmonary edema. Further management per CT surgery. (2) ESRD (end stage renal disease) on dialysis Current Visit: No Status: Chronic Assessment and plan: Patient normally has dialysis Friday, Friday, and Friday. Patient Is back on his regular schedule, will get dialysis today. Further management per nephrology. (3) CHF (congestive heart failure) Current Visit: No Status: Acute Assessment and plan: No evidence of acute exacerbation. Likely contributing to the patient's recurrent pleural effusion. Continue medical management. Qualifiers: Congestive heart failure type: unspecified congestive heart failure type Congestive heart failure chronicity: chronic Qualified Code(s): I50.9 - Heart failure, unspecified (4) DVT prophylaxis Current Visit: No Status: Acute Assessment and plan: Patient has EPCD's ordered, patient is very ambulatory at this time. We will hold off on pharmacologic prophylaxis given the patient's chest tube and also scheduled dialysis. - Subjective Interval history: Patient seen and examined at bedside. Patient states he feels okay today. States the shortness breath has resolved. He reports minimal discomfort at chest tube site. - Constitutional Vitals: Temp Pulse Resp BP Pulse Ox 97.3 F L 59 15 126/85 97 11/11/16 07:45 11/11/16 07:45 11/11/16 07:45 11/11/16 07:45 11/11/16 07:45 General appearance: Present: A&O X 3, no acute distress, answers questions appropriately - Respiratory Respiratory exam: Present: CTAB. Absent: rales, rhonchi, wheezes - Cardiovascular Cardiovascular exam: Present: RRR. Absent: gallop, rubs, systolic murmur - GI/Abdominal GI/Abdominal exam: Present: normal bowel sounds, soft. Absent: distended, tenderness - Extremities Exam Extremities exam: Present: pedal edema (1+) - Neurological Exam Neurological exam: Present: alert, CN II-XII intact, oriented X3, no focal deficits Internal Medicine: Result - Labs CBC & Chem 7: 11/11/16 05:30 11/11/16 05:30 Labs: Short CBC 11/11/16 Range/Units 05:30 WBC 7.3 (4.3-11.1) K/mcL Hgb 12.0 L (12.9-16.9) g/dL Hct 36.5 L (37.5-50.1) % Plt Count 158 (140-400) K/mcL Neutrophils # 4.3 (1.6-8.9) K/mcL BMP 11/11/16 05:30 Sodium 131 L Potassium 5.9 H Chloride 93 L Carbon Dioxide 24 BUN 84 H Creatinine 11.93 H Glucose 95 Calcium 8.6 - ABG Interpretation ABG results: PT/INR, D-dimer PT 12.8 Seconds (9.4-12.1) H 11/06/16 23:40 - Impressions Impressions Chest X-Ray 11/11/16 00:01 IMPRESSION: Stable size of right-sided pneumothorax- pleural drainage catheter. Increased right lower lobe consolidation D/ / Lui Ayala MD / Lui Ayala MD Interpreting Provider: Lui Ayala MD - VTE Documentation of Mechanical Device: Intermittent pneumatic compression device Consult Discharge Plan - Plan Referrals: Genoveva Pepper CNP [Partnered Physician] - 11/13/16 10:40 am Constantin March MD [Partnered Physician] - 11/14/16 2:15 pm Lavon Estrada Jr, MD [Primary Care Provider] - Lamont Mora DO [Partnered Physician] - 12/02/16 8:35 am <Ralph Snyder - Last Filed: 11/11/16 17:29> - Assessment and plan (1) Pleural effusion Current Visit: No Status: Acute (2) Acute on chronic systolic heart failure Current Visit: Yes Status: Acute Assessment and plan: Stable with dialysis. (3) Suprapubic catheter Current Visit: No Status: Acute (4) Chronic venous stasis dermatitis of both lower extremities Current Visit: No Status: Chronic (5) Tobacco abuse Current Visit: No Status: Chronic (6) Hypertension Current Visit: No Status: Chronic Qualifiers: Hypertension type: secondary to other renal disorders Qualified Code(s): I15.1 - Hypertension secondary to other renal disorders; N28.89 - Other specified disorders of kidney and ureter (7) ESRD (end stage renal disease) on dialysis Current Visit: No Status: Chronic (8) Status post chest tube placement Current Visit: Yes Status: Acute - Constitutional Vitals: Temp Pulse Resp BP Pulse Ox 97.5 F L 65 15 135/88 97 11/11/16 15:00 11/11/16 15:30 11/11/16 15:00 11/11/16 15:30 11/11/16 15:00 Internal Medicine: Result - Labs CBC & Chem 7: 11/11/16 05:30 11/11/16 05:30 Labs: Short CBC 11/11/16 Range/Units 05:30 WBC 7.3 (4.3-11.1) K/mcL Hgb 12.0 L (12.9-16.9) g/dL Hct 36.5 L (37.5-50.1) % Plt Count 158 (140-400) K/mcL Neutrophils # 4.3 (1.6-8.9) K/mcL BMP 11/11/16 05:30 Sodium 131 L Potassium 5.9 H Chloride 93 L Carbon Dioxide 24 BUN 84 H Creatinine 11.93 H Glucose 95 Calcium 8.6 - ABG Interpretation ABG results: PT/INR, D-dimer PT 12.8 Seconds (9.4-12.1) H 11/06/16 23:40 - Impressions Impressions Chest X-Ray 11/11/16 00:01 IMPRESSION: Stable size of right-sided pneumothorax- pleural drainage catheter. Increased right lower lobe consolidation D/ / Lui Ayala MD / Lui Ayala MD Interpreting Provider: Lui Ayala MD - Attending Attestation I examined this patient and my medical decision-making was reviewed with the Resident Physician on 11/11/16. I agree with the documented findings, disposition and treatment plan as described except to the extent set forth below. Mr. Snyder is currently admitted for acute respiratory distress related to pleural effusion. He is moderate to high risk due to potential worsening respiratory status. Mr. Snyder is feeling OK today. No new symptoms overnight. Pain OK at this time. To have dialysis today. Exam Alert. Comfortable Heart reg No wheeze I/P 1. Pleural effusion s/p CT - plan for surgery tomorrow. 2. ESRD 3. Pain Further diagnoses and plan as above.
--- NOTE | 2016-11-11 10:57 | Nephrology Progress Note ---
Date of Encounter: 11/11/16 Time of Encounter: 09:45 - Assessment and Plan (1) ESRD (end stage renal disease) on dialysis Current Visit: No Status: Chronic HD today 4Hr, 2K, goal 2Kg UF as tolerated -- he has lost several Kgs over the weekend from the CT drainage. Hyperphos: counseled him to improve dietary compliance and to strictly eat only if also taking the Phos binders at the beginning of meals and/or snacks. Avoid sumi and other high phos foods. Thank you. (2) Hyperkalemia Current Visit: No Status: Acute (3) Hyperphosphatemia Current Visit: No Status: Acute (4) Noncompliance with medication regimen Current Visit: No Status: Acute (5) Pleural effusion Current Visit: No Status: Acute Subjective Principal diagnosis: ESRD, Pleural effusion Interval history: Pt was seen/examined earlier today. His mother was present at the bedside. He did not affirm N/V/D or uremic complaints. Objective - Vital Signs Vital signs: Vital Signs Temp Pulse Resp BP Pulse Ox 11/11/16 07:45 97.3 F L 59 15 126/85 97 11/11/16 07:05 97 11/11/16 05:25 97.3 F L 64 18 114/67 94 L 11/11/16 00:42 96.2 F L 59 16 130/83 93 L 11/10/16 20:17 95 11/10/16 19:50 97.7 F 54 18 115/74 97 11/10/16 16:26 97.6 F 59 18 115/71 95 11/10/16 11:57 97.6 F 68 16 124/86 95 Intake and Output 11/10/16 11/11/16 11/11/16 23:59 07:59 15:59 Intake Total 0 / 0 680 / 680 240 / 240 Output Total 420 / 420 500 / 500 Balance -420 / -420 180 / 180 240 / 240 Intake: Oral 0 / 0 680 / 680 240 / 240 Output: Catheter 0 / 0 Chest Tube Drainage 420 / 420 500 / 500 Right Lower Posterior 420 / 420 500 / 500 Chest Other: Meal Dinner Breakfast Percent of Meal Consumed 95% 90% # Voids 0 0 Weight 130.5 kg 130.5 kg Patient Weight 11/11/16 23:59 Weight 130.5 kg - General Appearance Exam: General appearance: Present: well-developed, well-nourished, appears started age EENT: Present: ATNC, PERRL, mucous membranes moist Neck: Present: supple Respiratory: Present: course breath sounds Cardiology: Present: edema, regular rate, regular rhythm, normal S1, normal S2 Dialysis Vascular Access: Arteriovenous Fistula thrill: Yes bruit: Yes Gastrointestinal: Present: normoactive bowel sounds, no tenderness, no guarding Integumentary: Present: warm and dry Neurologic: Present: no focal deficit, no asterixis, alert and oriented x3 Musculoskeletal: Present: no deformities, no erythema, no cyanosis Psychiatric: Present: mood/affect appropriate, cooperative - Lab 11/11/16 05:30 11/11/16 05:30 Most recent lab results Calcium 8.6 mg/dL (8.6-10.8) 11/11/16 05:30 Phosphorus 8.5 mg/dL (2.3-4.7) H 11/10/16 05:58 Magnesium 2.0 mg/dL (1.6-2.6) 11/10/16 05:58 - VTE Documentation of Mechanical Device: Intermittent pneumatic compression device Consult Discharge Plan - Plan Referrals: Genoveva Pepper CNP [Partnered Physician] - 11/13/16 10:40 am Constantin March MD [Partnered Physician] - 11/14/16 2:15 pm Lavon Estrada Jr, MD [Primary Care Provider] - Lamont Mora DO [Partnered Physician] - 12/02/16 8:35 am
[2016-11-11] MEDS: *HR* HYDROcodone/Acet 5/325 mg TABLET PO PRN (14:17)
[2016-11-11] MEDS: hydrALAZINE 10 MG TABLET PO SCH ×4 (14:52→20:35)
[2016-11-11] MEDS: Metoprolol XL (24 HR) Succ 50 MG TAB.ER.24H PO SCH (16:35)
[2016-11-11] MEDS: Furosemide 40 MG TABLET PO SCH (16:35)
[2016-11-11] MEDS: Amoxicillin 500 MG CAPSULE PO SCH (17:14)
[2016-11-12] MEDS: *HR* HYDROcodone/Acet 5/325 mg TABLET PO PRN ×2 (00:15→19:36)
[2016-11-12] MEDS: *HR* HYDROmorphone (PF) 1 MG/ML SYRINGE IVP PRN ×8 (04:19→23:50)
[2016-11-12 06:23] LABS: Basophils # 0.1 K/mcL (0.0-0.2); Basophils % 1.4 %; Eosinophils # 0.3 K/mcL (0.0-0.6); Eosinophils % 5.4 %; Hematocrit 37.3 % (37.5-50.1); Hemoglobin 12.1 g/dL (12.9-16.9); Immature Granulocytes % 0.2 % (0-4); Lymphocytes # 1.2 K/mcL (0.6-4.6); Lymphocytes % 21.6 %; Mean Corpuscular HGB Conc 32.4 g/dL (31.6-35.5); Mean Corpuscular Hemoglobin 30.1 pg (28.0-33.3); Mean Corpuscular Volume 92.8 fL (83.0-100.0); Monocytes # 0.6 K/mcL (0.0-1.3); Monocytes % 10.3 %; Neutrophils # 3.4 K/mcL (1.6-8.9); Platelet Count 165 K/mcL (140-400); Red Blood Count 4.02 M/mcL (4.19-5.50); Red Cell Distribution Width 14.1 % (11.5-14.5); Segmented Neutrophils % 61.1 %
[2016-11-12 06:30] LABS: Calcium 8.8 mg/dL (8.6-10.8); Potassium 5.8 mEq/L (3.5-4.5)
[2016-11-12] MEDS: Metoprolol XL (24 HR) Succ 50 MG TAB.ER.24H PO SCH (06:45)
[2016-11-12] MEDS ORDERED: Dexamethasone 4 MG/ML VIAL ONE (06:55)
[2016-11-12] MEDS ORDERED: *HR* Rocuronium Bromide 50 MG/5 ML VIAL ONE (06:55)
[2016-11-12] MEDS ORDERED: *HR* Phenylephrine 10 MG/ML VIAL ONE (06:55)
[2016-11-12] MEDS ORDERED: Ondansetron 4 MG/2 ML VIAL ONE (06:55)
[2016-11-12] MEDS ORDERED: Lidocaine 2% Syringe 100 MG/5 ML ONE (06:56)
[2016-11-12] MEDS ORDERED: *HR* Propofol 200 MG/20 ML VIAL IVP ONE (06:56)
[2016-11-12] MEDS ORDERED: *HR* Midazolam HCl 5 MG/5 ML VIAL IVP ONE (06:56)
[2016-11-12] MEDS ORDERED: *HR* FentaNYL (PF) 250 MCG/5 ML VIAL ONE (06:56)
[2016-11-12] MEDS ORDERED: Heparin 1,000 UNITS/500 mL NS 500 ML ONE (07:17)
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
[2016-11-12] MEDS ORDERED: Lidocaine 1% 20 ML MDV ONE (07:40)
[2016-11-12] MEDS ORDERED: CeFAZolin Pre 3,000 MG/100 ML 3,000 MG/100 ML BAG IVPB ONE (07:45)
[2016-11-12] MEDS ORDERED: Talc (sterile) 5 GM, 0.9 % Sodium Chloride 50 ML IX ONE (08:01)
[2016-11-12] MEDS ORDERED: ceFAZolin 2,000 MG in D5% in Water 100 ML IVPB ONE (08:16)
--- NOTE | 2016-11-12 08:34 | Anesthesia Procedures ---
Date of Encounter: 11/12/16 Time of Encounter: 07:50 Procedures: Anesthesia - Arterial Line Consent obtained: written consent Time out performed: Yes Sedation: Versed (mg): 3 Sedation: Fentanyl (mcg): 100 Supplemental Oxygen via Nasal Cannula (L/min): 2 Local Anesthetic: Lidocaine 1% Amount of Anesthetic used (mls): 1 Size (Gauge): 20 Length (inches): 1 3/4 Technique Used: sterile prep, guide wire technique, direct puncture technique Post-Procedure: line taped into place, dry sterile dressing placed Patient tolerated procedure: well, no complications Complications: none Site: Radial R (attempt x 1, easy)
[2016-11-12] MEDS ORDERED: *HR* HYDROmorphone (PF) 1 MG/ML SYRINGE IVP PRN (10:06)
[2016-11-12] MEDS ORDERED: Acetaminophen 325 MG TABLET PO PRN (10:18)
[2016-11-12] MEDS ORDERED: Naloxone 0.4 MG/ML INJ IVP PRN (10:18)
[2016-11-12] MEDS ORDERED: Ipratropium/Albuterol Neb 3 ML IH PRN (10:18)
[2016-11-12] MEDS ORDERED: 0.9 % Sodium Chloride 1,000 ML IVC SCH (10:18)
[2016-11-12] MEDS ORDERED: Ondansetron ODT 4 MG TAB.RAPDIS SL PRN (10:18)
--- NOTE | 2016-11-12 10:23 | Operative Note ---
Date of procedure: 11/12/16 Procedure in Detail: Preoperative diagnosis. Recurrent, large right pleural effusion. Postoperative diagnosis. Same. Procedures. Right thoracoscopy with multiple pleural biopsies. Mechanical and chemical pleurodesis with talc. Decortication. Surgeon. Dr. Silvio Thomas. Anesthesia. Dr. Carlo Penn. The patient is a 31-year-old gentleman who is on dialysis. He is presented with recurrent right pleural effusions. He is noncompliant with dialysis and will miss occasional sessions. He had been seen before for sclerosis. However, initially he wanted to go with serial thoracenteses. He presented again with his right chest almost completely nicolas out. A chest tube was inserted in interventional radiology and over 4 L of fluid were drained. However, the chest tube continued to drain and the lung failed to expand. He was referred for surgery. He was brought to the operating room where he underwent general anesthetic. Placement of a double-lumen endotracheal tube. He was prepped and draped with the right side up. 2 incisions were made in the midaxillary line. Through the superior incision and a Thoracoport was inserted followed by the thoracoscope. Inspection revealed some residual fluid that was sucked out with the sucker. There were adhesions between the upper lobe and the apex of the chest. These were taken down and the lung was decorticated from the apex of the chest down to the diaphragm. Also from the mediastinum back to the spine. The lung itself was freed up and we could see good vascular markings throughout the lung. Pleurodesis was then done. First we did mechanical pleurodesis using a Bovie scratch pad. Next we performed a mechanical pleurodesis using a Ray-Ana sponge. This was done from the apex of the chest down to the diaphragm and from the mediastinum back to the spine. Multiple pleural biopsies were taken and sent for permanent pathology. Chemical pleurodesis was then done. A talc solution was instilled into the chest. The 2 incisions were infiltrated with quarter percent Marcaine without epinephrine. Through the lower hole a #36 chest tube was inserted into the apex of the chest. A 32 right angle chest tube was inserted through the upper hole. The tubes were then stitched to the chest wall and the wounds were dressed. I did close the skin around the chest tube with a 3-0 Vicryl at both sites. The patient tolerated the procedure well and was returned to intensive care unit in satisfactory and stable condition.
[2016-11-12 10:54] LABS: Basophils # 0.1 K/mcL (0.0-0.2); Basophils % 0.7 %; Eosinophils # 0.3 K/mcL (0.0-0.6); Eosinophils % 3.5 %; Hematocrit 37.5 % (37.5-50.1); Hemoglobin 12.5 g/dL (12.9-16.9); Immature Granulocytes % 0.1 % (0-4); Lymphocytes # 0.6 K/mcL (0.6-4.6); Lymphocytes % 7.9 %; Mean Corpuscular HGB Conc 33.3 g/dL (31.6-35.5); Mean Corpuscular Hemoglobin 30.4 pg (28.0-33.3); Mean Corpuscular Volume 91.2 fL (83.0-100.0); Mean Platelet Volume 9.5 fL (9.4-12.4); Monocytes # 0.3 K/mcL (0.0-1.3); Monocytes % 4.2 %; Platelet Count 167 K/mcL (140-400); Red Blood Count 4.11 M/mcL (4.19-5.50); Red Cell Distribution Width 14.2 % (11.5-14.5); Segmented Neutrophils % 83.6 %
--- NOTE | 2016-11-12 10:59 | Event Note ---
Date of Encounter: 11/12/16 Time of Encounter: 09:30 Nephrology Chart Review Pt was off the floor for the procedure. He called off dialysis before finishing his treatment yesterday; he remains hyperkalemic today. Will give Kayexalate today for hyperkalemia of 5.9. Appreciate CTS and Hospitalists. Next HD is tentatively scheduled for Friday (tomorrow).
[2016-11-12 11:04] LABS: ABG Base Excess -0.8 mEq/L (-2.0 to 3.0); ABG HCO3 25.4 mEQ/L (21-27); ABG Oxygen Saturation 99 % (95-98); ABG PCO2 47 mmHg (35-45); ABG PH 7.34 pH Units (7.32-7.45); ABG PO2 135 mmHg (85-104); ABG TCO2 26.8 mEq/L (20-26)
[2016-11-12 11:05] LABS: Blood Gas Liter Flow 2 L/MIN
[2016-11-12 11:30] LABS: Potassium 5.8 mEq/L (3.5-4.5)
[2016-11-12] MEDS: hydrALAZINE 10 MG TABLET PO SCH ×3 (14:14→19:46)
[2016-11-12] MEDS ORDERED: Amoxicillin 500 MG CAPSULE PO SCH (18:00)
[2016-11-13] MEDS: *HR* HYDROmorphone (PF) 1 MG/ML SYRINGE IVP PRN ×9 (02:02→22:27)
[2016-11-13] MEDS: *HR* HYDROcodone/Acet 5/325 mg TABLET PO PRN ×2 (02:10→06:09)
[2016-11-13 04:36] LABS: ABG Base Excess 2.1 mEq/L (-2.0 to 3.0); ABG HCO3 28.2 mEQ/L (21-27); ABG Oxygen Saturation 90 % (95-98); ABG PCO2 50 mmHg (35-45); ABG PH 7.36 pH Units (7.32-7.45); ABG PO2 62 mmHg (85-104); ABG TCO2 29.7 mEq/L (20-26)
[2016-11-13 04:37] LABS: Blood Gas FiO2 21 %
[2016-11-13 05:03] LABS: Basophils % 0.2 %; Eosinophils # 0.1 K/mcL (0.0-0.6); Eosinophils % 0.7 %; Hematocrit 34.8 % (37.5-50.1); Hemoglobin 11.5 g/dL (12.9-16.9); Immature Granulocytes % 0.5 % (0-4); Lymphocytes % 8.4 %; Mean Corpuscular Hemoglobin 29.9 pg (28.0-33.3); Mean Corpuscular Volume 90.6 fL (83.0-100.0); Mean Platelet Volume 10.3 fL (9.4-12.4); Monocytes # 1.2 K/mcL (0.0-1.3); Monocytes % 9.9 %; Neutrophils # 9.7 K/mcL (1.6-8.9); Platelet Count 198 K/mcL (140-400); Red Blood Count 3.84 M/mcL (4.19-5.50); Red Cell Distribution Width 14.4 % (11.5-14.5); Segmented Neutrophils % 80.3 %
[2016-11-13 05:11] LABS: Calcium 8.9 mg/dL (8.6-10.8)
--- NOTE | 2016-11-13 07:07 | Cardiothoracic Progress Note ---
Date of Encounter: 11/13/16 Time of Encounter: 07:06 - Assessment and plan (1) Dyspnea Current Visit: Yes Status: Acute We will transfer the patient to the floor. He will receive dialysis today. Qualifiers: Dyspnea type: unspecified Qualified Code(s): R06.00 - Dyspnea, unspecified - Subjective Interval history: The patient complains of moderate postoperative pain. Vital Signs, Last 4 Hours Temp Pulse Resp BP Pulse Ox 11/13/16 06:00 71 18 144/72 92 L 11/13/16 05:00 78 18 142/81 93 L 11/13/16 04:35 16 93 L 11/13/16 04:00 97.9 F 68 12 131/65 91 L Oxgyen Flow Rate Oxygen Flow Rate (LPM) 2 Clinical Data, last 8 Hours Output, Chest Tube Drainage 40 Amount [Right Mid-Axillary Chest #2] Output, Chest Tube Drainage 50 Amount [Right Mid-Axillary Chest #2] Output, Chest Tube Drainage 18 Amount [Right Lower Posterior Chest] Output, Chest Tube Drainage 22 Amount [Right Lower Posterior Chest] Weight 11/11/16 11/12/16 11/13/16 23:59 23:59 23:59 Weight 130.5 kg Lungs are clear to percussion and auscultation. Heart is in a normal sinus rhythm. Chest tube drainage is minimal and there is no air leak. - Labs 11/13/16 04:40 11/13/16 04:40 Lab Results, Last 24 hours 11/12/16 11/12/16 11/13/16 09:48 10:18 04:40 WBC 7.2 12.1 H D Hgb 12.5 L 11.5 L Hct 37.5 34.8 L Plt Count 167 198 Sodium 133 L Potassium 5.8 H Chloride 97 L Carbon Dioxide 23 BUN 55 H Creatinine 8.74 H Glucose 118 H Calcium 9.0 Magnesium 11/13/16 11/13/16 04:40 04:40 WBC Hgb Hct Plt Count Sodium 130 L Potassium 6.0 H Chloride 95 L Carbon Dioxide 24 BUN 66 H Creatinine 9.67 H Glucose 143 H Calcium 8.9 Magnesium 1.9 - VTE Documentation of Mechanical Device: Intermittent pneumatic compression device Consult Discharge Plan - Plan Referrals: Genoveva Pepper CNP [Partnered Physician] - 11/13/16 10:40 am Constantin March MD [Partnered Physician] - 11/14/16 2:15 pm Lamont Mora DO [Partnered Physician] - 12/02/16 8:35 am
[2016-11-13] MEDS ORDERED: 0.9 % Sodium Chloride 250 ML IV PRN (07:33)
--- NOTE | 2016-11-13 07:51 | Internal Med Progress Note ---
Date of Encounter: 11/12/16 Time of Encounter: 17:00 - Assessment and plan (1) Pleural effusion Current Visit: Yes Status: Acute Assessment and plan: Recurrent right-sided pleural effusion, likely transudative due to underlying CHF and ESRD; CT surgery consulted and patient underwent mechanical and chemical pleurodesis with talc and chest tube placement; chest tube management per CT surgery; patient transferred to ICU post-op; pain control with PRN IV Dilaudid and Percocet; (2) CHF (congestive heart failure) Current Visit: Yes Status: Chronic Assessment and plan: No evidence of acute exacerbation. Likely contributing to the patient's recurrent pleural effusion. Continue medical management. Qualifiers: Congestive heart failure type: combined Congestive heart failure chronicity : chronic Qualified Code(s): I50.42 - Chronic combined systolic (congestive) and diastolic (congestive) heart failure (3) Hyperkalemia Current Visit: Yes Status: Acute Assessment and plan: likely due to incomplete HD session on Friday; could not be dialyzed today due to surgery; Kayexalate treatment; monitor potassium closely; due for HD in am; (4) Cardiomyopathy Current Visit: Yes Status: Chronic Qualifiers: Cardiomyopathy type: unspecified Qualified Code(s): I42.9 - Cardiomyopathy , unspecified (5) Cigarette smoker Current Visit: Yes Status: Chronic (6) ESRD (end stage renal disease) on dialysis Current Visit: Yes Status: Chronic Assessment and plan: Nephrology on board for HD needs; HD in am; (7) Obesity Current Visit: Yes Status: Chronic Qualifiers: Obesity type: due to excess calories Obesity severity: unspecified obesity severity Qualified Code(s): E66.09 - Other obesity due to excess calories - Subjective Interval history: Reports severe pain in right chest due to surgery, partly controlled with pain meds; able to tolerate oral diet; due for HD tomorrow; - Constitutional Vitals: Temp Pulse Resp BP Pulse Ox 97.9 F 71 18 144/72 92 L 11/13/16 07:46 11/13/16 06:00 11/13/16 06:00 11/13/16 06:00 11/13/16 06:00 General appearance: Present: mild distress, A&O X 3, answers questions appropriately - Respiratory Respiratory exam: Present: decreased breath sounds (on the right side), CTAB. Absent: accessory muscle use, rales, rhonchi, wheezes Additional comments: Right lateral chest wall with [address], draining some bloody fluid - Cardiovascular Cardiovascular exam: Present: RRR, +S1, +S2. Absent: diastolic murmur, gallop, rubs, systolic murmur - GI/Abdominal GI/Abdominal exam: Present: normal bowel sounds, soft, no peritoneal signs. Absent: distended, tenderness - Extremities Exam Extremities exam: Present: warm, radial pulses palpable and symetrical. Absent : calf tenderness, cyanotic, pedal edema - Neurological Exam Neurological exam: Present: CN II-XII intact, oriented X3, no focal deficits. Absent: pronater drift, facial droop, speech deficit - Skin Skin exam: Present: dry, intact Internal Medicine: Result - Labs CBC & Chem 7: 11/13/16 04:40 11/13/16 04:40 Labs: Short CBC 11/12/16 11/13/16 Range/Units 09:48 04:40 WBC 7.2 12.1 H D (4.3-11.1) K/mcL Hgb 12.5 L 11.5 L (12.9-16.9) g/dL Hct 37.5 34.8 L (37.5-50.1) % Plt Count 167 198 (140-400) K/mcL Neutrophils # 6.0 9.7 H (1.6-8.9) K/mcL BMP 11/12/16 11/13/16 10:18 04:40 Sodium 133 L 130 L Potassium 5.8 H 6.0 H Chloride 97 L 95 L Carbon Dioxide 23 24 BUN 55 H 66 H Creatinine 8.74 H 9.67 H Glucose 118 H 143 H Calcium 9.0 8.9 - ABG Interpretation ABG results: ABG ABG pH 7.36 pH Units (7.32-7.45) 11/13/16 04:25 ABG pCO2 50 mmHg (35-45) H 11/13/16 04:25 ABG pO2 62 mmHg (85-104) L 11/13/16 04:25 ABG O2 Saturation 90 % (95-98) L 11/13/16 04:25 PT/INR, D-dimer PT 12.8 Seconds (9.4-12.1) H 11/06/16 23:40 - Impressions Impressions Retroperitoneal Abscess Drainage 11/08/16 00:00 IMPRESSION: Successful ultrasound-guided placement of a right pigtail chest tube. D/ / 11/08/2016 16:01:30 Smith Watson MD / Nora Daniels Interpreting Provider: Smith Watson MD Chest X-Ray 11/08/16 15:27 IMPRESSION: No pneumothorax following right pigtail chest tube placement. Large right pleural effusion, increased from prior exam. Unchanged cardiomegaly. D/ / 11/08/2016 16:03:54 Smith Watson MD / earnold Interpreting Provider: Smith Watson MD Chest X-Ray 11/12/16 10:18 IMPRESSION: Interval surgery with placement of 2 right chest tubes in good position. Left pleural fluid has been nearly completely evacuated with re-expansion of the right lung. No pneumothorax. D/ / Maninder Zhao MD / Maninder Zhao MD Interpreting Provider: Maninder Zhao MD Chest X-Ray 11/13/16 06:00 IMPRESSION: 1. Stable lines and tubes. 2. Slight interval increase in size of a small right pleural effusion. 3. No discrete pneumothorax identified. 4. Cardiomegaly. 5. Mild edema. D/ / Francie Gibbons MD / Francie Gibbons MD Interpreting Provider: Francie Gibbons MD - VTE Documentation of Mechanical Device: Intermittent pneumatic compression device Consult Discharge Plan - Plan Referrals: Genoveva Pepper CNP [Partnered Physician] - 11/13/16 10:40 am Constantin March MD [Partnered Physician] - 11/14/16 2:15 pm Lamont Mora DO [Partnered Physician] - 12/02/16 8:35 am
[2016-11-13] MEDS: hydrALAZINE 10 MG TABLET PO SCH ×4 (07:54→22:27)
[2016-11-13] MEDS ORDERED: Metoprolol XL (24 HR) Succ 50 MG TAB.ER.24H PO SCH (09:00)
[2016-11-13] MEDS ORDERED: Furosemide 40 MG TABLET PO SCH (09:00)
[2016-11-13] MEDS ORDERED: Nicotine 7 MG PATCH.TD24 TD SCH (09:00)
[2016-11-13] MEDS ORDERED: Aspirin Enteric Coated 81 MG Tablet PO SCH (09:00)
--- NOTE | 2016-11-13 10:49 | Nephrology Progress Note ---
Date of Encounter: 11/13/16 Time of Encounter: 08:35 - Assessment and Plan (1) ESRD (end stage renal disease) on dialysis Current Visit: Yes Status: Chronic HD today for clearance (hyperkalemia) and volume mgt If needed may utilize UF tomorrow, but will assess on exam first. He was noted to have worsening hyperkalemia this AM and dialysis orders were placed earlier in the day. Hyperphos: counseled him to improve dietary compliance and to strictly eat only if also taking the Phos binders at the beginning of meals and/or snacks. Avoid sumi and other high phos foods. Thank you. (2) Hyperkalemia Current Visit: No Status: Acute HD for clearance (3) Hyperphosphatemia Current Visit: No Status: Acute See above (4) Noncompliance with medication regimen Current Visit: No Status: Acute (5) Pleural effusion Current Visit: Yes Status: Acute Acute on chronic. Appreciated CTS Subjective Principal diagnosis: ESRD, Pleural effusion Interval history: Pt was seen/examined earlier today. He did not affirm N/V/D or uremic. He voiced some mild pain at this op site. He was in the ICU s/p his thoracoscopy. He was noted to have worsening hyperkalemia this AM and dialysis orders were placed earlier in the day. Objective - Vital Signs Vital signs: Vital Signs Temp Pulse Resp BP Pulse Ox 11/13/16 08:00 76 18 131/86 93 L 11/13/16 07:46 97.9 F 11/13/16 06:00 71 18 144/72 92 L 11/13/16 05:00 78 18 142/81 93 L 11/13/16 04:35 16 93 L 11/13/16 04:00 97.9 F 68 12 131/65 91 L 11/13/16 03:00 74 16 119/63 93 L 11/13/16 02:00 74 16 146/92 94 L 11/13/16 01:00 78 16 155/83 93 L 11/13/16 00:00 97.8 F 72 22 149/82 95 11/12/16 23:00 72 18 142/81 94 L 11/12/16 21:00 72 16 150/99 91 L 11/12/16 20:22 98.4 F 11/12/16 20:00 98.4 F 70 18 128/78 92 L 11/12/16 19:00 66 16 146/92 91 L 11/12/16 18:00 66 16 146/83 95 11/12/16 17:51 74 16 149/99 94 L 11/12/16 17:00 73 16 141/90 93 L 11/12/16 16:00 66 16 152/93 96 11/12/16 15:00 64 16 149/86 100 11/12/16 14:00 72 16 155/83 100 11/12/16 13:00 73 16 146/89 98 11/12/16 12:00 60 11/12/16 11:30 68 14 158/85 100 11/12/16 10:58 64 14 153/83 100 11/12/16 10:49 64 Intake and Output 11/12/16 11/13/16 11/13/16 23:59 07:59 15:59 Intake Total 240 / 240 480 / 480 720 / 720 Output Total 228 / 228 130 / 130 0 / 0 Balance 12 / 350 / 350 720 / 720 Intake: Oral 240 / 240 480 / 480 720 / 720 Output: Chest Tube Drainage 228 / 228 130 / 130 0 / 0 Right Lower Posterior 78 / 78 40 / 40 0 / 0 Chest Right Mid-Axillary Chest 150 / 150 90 / 90 0 / 0 #2 Other: Meal sandwhich/chips/pudding x2 Breakfast Percent of Meal Consumed 100% 100% - General Appearance General appearance: Present: well-developed, well-nourished, appears started age EENT: Present: ATNC, PERRL Neck: Present: supple Respiratory: Present: clear Additional Comments: Right chest tubes Cardiology: Present: edema (about 1+ pedal and ankle edema b/l), regular rate, regular rhythm, normal S1, normal S2 Gastrointestinal: Present: normoactive bowel sounds, no tenderness, no guarding Integumentary: Present: no rash, warm and dry Neurologic: Present: no focal deficit, no asterixis, alert and oriented x3 Musculoskeletal: Present: no deformities, no erythema Psychiatric: Present: mood/affect appropriate, cooperative - Lab 11/13/16 04:40 11/13/16 04:40 Most recent lab results ABG pH 7.36 pH Units (7.32-7.45) 11/13/16 04:25 ABG pCO2 50 mmHg (35-45) H 11/13/16 04:25 ABG pO2 62 mmHg (85-104) L 11/13/16 04:25 ABG HCO3 28.2 mEQ/L (21-27) H 11/13/16 04:25 ABG O2 Saturation 90 % (95-98) L 11/13/16 04:25 Calcium 8.9 mg/dL (8.6-10.8) 11/13/16 04:40 Phosphorus 8.5 mg/dL (2.3-4.7) H 11/10/16 05:58 Magnesium 1.9 mg/dL (1.6-2.6) 11/13/16 04:40 - VTE Documentation of Mechanical Device: Intermittent pneumatic compression device Consult Discharge Plan - Plan Referrals: Genoveva Pepper CNP [Partnered Physician] - 11/18/16 10:40 am Constantin March MD [Partnered Physician] - 12/02/16 1:45 pm Lamont Mora DO [Partnered Physician] - 12/02/16 8:35 am
[2016-11-13] MEDS ORDERED: Acetaminophen 325 MG TABLET PO PRN (13:51)
[2016-11-13] MEDS ORDERED: Naloxone 0.4 MG/ML INJ IVP PRN (13:51)
[2016-11-13] MEDS ORDERED: Ondansetron ODT 4 MG TAB.RAPDIS SL PRN (13:51)
[2016-11-13] MEDS ORDERED: Ipratropium/Albuterol Neb 3 ML IH PRN (13:51)
--- NOTE | 2016-11-13 13:53 | Internal Med Progress Note ---
<HarmonAlly Jake - Last Filed: 11/13/16 19:19> Date of Encounter: 11/13/16 Time of Encounter: 08:30 - Assessment and plan (1) Status post chest tube placement Current Visit: Yes Status: Acute Assessment and plan: Two chest tubes in place draining bloody fluid Continue to monitor output (2) Pleural effusion Current Visit: Yes Status: Acute Assessment and plan: Patient is s/p day#1 for right-sided mechanical and chemical pleurodesis per Dr. Thomas Chest tube management per CT surgery Continue pain control with PRN IV Dilaudid and Percocet; (3) Acute on chronic systolic heart failure Current Visit: Yes Status: Acute Assessment and plan: Stable with dialysis (4) Hyperkalemia Current Visit: Yes Status: Acute Assessment and plan: Hemodialysis this am Monitor potassium closely Nephrology following (5) ESRD (end stage renal disease) on dialysis Current Visit: Yes Status: Chronic Assessment and plan: Nephrology on board for HD. Hemodialysis this am. (6) Cigarette smoker Current Visit: Yes Status: Chronic (7) Obesity Current Visit: Yes Status: Chronic Qualifiers: Obesity type: due to excess calories Obesity severity: unspecified obesity severity Qualified Code(s): E66.09 - Other obesity due to excess calories (8) DVT prophylaxis Current Visit: No Status: Acute Assessment and plan: Patient has EPCD's ordered, patient is very ambulatory at this time. We will hold off on pharmacologic prophylaxis given the patient's chest tube and also scheduled dialysis. - Time Spent With Patient 25 - 35 minutes (25 minutes including time with patient and coordinating care) - Subjective Interval history: Patient states that he is doing well this morning. He is in pain to right chest rated 8/10 at times. However, presently talking and jovial. Patient is complaining of edema to lower extremities that he describes as "tightness". - Constitutional Vitals: Temp Pulse Resp BP Pulse Ox 98.1 F 78 18 117/76 93 L 11/13/16 10:00 11/13/16 08:00 11/13/16 10:00 11/13/16 13:15 11/13/16 08:00 General appearance: Present: A&O X 3, no acute distress, obese, answers questions appropriately - Head Head exam: Present: atraumatic, normocephalic - Eye Eye exam: Present: PERRL, conjuntiva pink, sclera anicteric Pupils: Present: PERRL - Neck Neck exam general surgery: Present: supple, trachea midline - Respiratory Respiratory exam: Present: decreased breath sounds, rhonchi. Absent: accessory muscle use, respiratory distress, wheezes Additional comments: Right chest with [address] draining sanguinous fluid Decreased breath sounds to right lung base - Cardiovascular Cardiovascular exam: Present: RRR, +S1, +S2. Absent: diastolic murmur, gallop, rubs, systolic murmur - GI/Abdominal GI/Abdominal exam: Present: normal bowel sounds, soft, no peritoneal signs. Absent: distended, tenderness Additional comments: Generalized anasarca to abdomen - Extremities Exam Extremities exam: Present: pedal edema (2+ pitting edema to bilateral lower extremities), warm, radial pulses palpable and symetrical. Absent: calf tenderness, cyanotic - Neurological Exam Neurological exam: Present: CN II-XII intact, oriented X3, no focal deficits. Absent: pronater drift, facial droop, speech deficit - Skin Skin exam: Present: dry, intact Internal Medicine: Result - Labs CBC & Chem 7: 11/13/16 04:40 11/13/16 04:40 Labs: Short CBC 11/13/16 Range/Units 04:40 WBC 12.1 H D (4.3-11.1) K/mcL Hgb 11.5 L (12.9-16.9) g/dL Hct 34.8 L (37.5-50.1) % Plt Count 198 (140-400) K/mcL Neutrophils # 9.7 H (1.6-8.9) K/mcL BMP 11/13/16 04:40 Sodium 130 L Potassium 6.0 H Chloride 95 L Carbon Dioxide 24 BUN 66 H Creatinine 9.67 H Glucose 143 H Calcium 8.9 - ABG Interpretation ABG results: ABG ABG pH 7.36 pH Units (7.32-7.45) 11/13/16 04:25 ABG pCO2 50 mmHg (35-45) H 11/13/16 04:25 ABG pO2 62 mmHg (85-104) L 11/13/16 04:25 ABG O2 Saturation 90 % (95-98) L 11/13/16 04:25 PT/INR, D-dimer PT 12.8 Seconds (9.4-12.1) H 11/06/16 23:40 - Impressions Impressions Chest X-Ray 11/13/16 06:00 IMPRESSION: 1. Stable lines and tubes. 2. Slight interval increase in size of a small right pleural effusion. 3. No discrete pneumothorax identified. 4. Cardiomegaly. 5. Mild edema. D/ / 11/13/2016 08:11:32 Francie Gibbons MD / mindy Interpreting Provider: Francie Gibbons MD - VTE Documentation of Mechanical Device: Intermittent pneumatic compression device Consult Discharge Plan - Plan Referrals: Genoveva Pepper CNP [Partnered Physician] - 11/18/16 10:40 am Constantin March MD [Partnered Physician] - 12/02/16 1:45 pm Lamont Mora DO [Partnered Physician] - 12/02/16 8:35 am - Attending Attestation I examined this patient and my medical decision-making was reviewed with the BODY JOINER/PA/Advanced Practice Nurse/Resident Physician. I agree with the documented findings, disposition and treatment plan as described except to the extent set forth below. <Vicente Mayfield - Last Filed: 11/14/16 07:40> - Constitutional Vitals: Temp Pulse Resp BP Pulse Ox 98.3 F 83 17 167/79 96 11/13/16 15:53 11/14/16 00:00 11/14/16 00:00 11/14/16 00:00 11/13/16 19:43 Internal Medicine: Result - Labs CBC & Chem 7: 11/13/16 04:40 11/14/16 04:37 Labs: BMP 11/14/16 04:37 Sodium 132 L Potassium 5.0 H D Chloride 93 L Carbon Dioxide 28 BUN 45 H D Creatinine 7.81 H Glucose 86 Calcium 9.3 - ABG Interpretation ABG results: ABG ABG pH 7.36 pH Units (7.32-7.45) 11/13/16 04:25 ABG pCO2 50 mmHg (35-45) H 11/13/16 04:25 ABG pO2 62 mmHg (85-104) L 11/13/16 04:25 ABG O2 Saturation 90 % (95-98) L 11/13/16 04:25 PT/INR, D-dimer PT 12.8 Seconds (9.4-12.1) H 11/06/16 23:40 - Impressions Impressions Chest X-Ray 11/13/16 06:00 IMPRESSION: 1. Stable lines and tubes. 2. Slight interval increase in size of a small right pleural effusion. 3. No discrete pneumothorax identified. 4. Cardiomegaly. 5. Mild edema. D/ / 11/13/2016 08:11:32 Francie Gibbons MD / mindy Interpreting Provider: Francie Gibbons MD - Attending Attestation I examined this patient and my medical decision-making was reviewed with the BODY JOINER/PA/Advanced Practice Nurse/Resident Physician. I agree with the documented findings, disposition and treatment plan as described except to the extent set forth below. Seen and examined while in HD. Continue with pain control. Chest tube management as per CTS. D/W patient.
[2016-11-13] MEDS: Amoxicillin 500 MG CAPSULE PO SCH (17:14)
[2016-11-14] MEDS: *HR* HYDROmorphone (PF) 1 MG/ML SYRINGE IVP PRN ×10 (00:56→21:53)
[2016-11-14] MEDS: *HR* HYDROcodone/Acet 5/325 mg TABLET PO PRN ×2 (04:49→23:06)
[2016-11-14 05:46] LABS: Calcium 9.3 mg/dL (8.6-10.8)
--- NOTE | 2016-11-14 06:29 | Cardiothoracic Progress Note ---
Date of Encounter: 11/14/16 Time of Encounter: 06:28 - Assessment and plan (1) Dyspnea Current Visit: Yes Status: Acute I will add Toradol for postoperative pain control. Hopefully, his chest tubes can be discontinued this weekend. Qualifiers: Dyspnea type: unspecified Qualified Code(s): R06.00 - Dyspnea, unspecified - Subjective Interval history: The patient continues to complain of postoperative pain. Oxgyen Flow Rate Oxygen Flow Rate (LPM) 2 Clinical Data, last 8 Hours Output, Chest Tube Drainage 50 Amount [Right Mid-Axillary Chest #2] Output, Chest Tube Drainage 0 Amount [Right Mid-Axillary Chest #2] Output, Chest Tube Drainage 0 Amount [Right Lower Posterior Chest] Output, Chest Tube Drainage 0 Amount [Right Lower Posterior Chest] Weight 11/12/16 11/13/16 11/14/16 23:59 23:59 23:59 Weight 130.5 kg 139.5 kg Lungs are clear to percussion and auscultation. Heart is in a normal sinus rhythm. Chest tube drainage is minimal. - Labs 11/13/16 04:40 11/14/16 04:37 Lab Results, Last 24 hours 11/14/16 04:37 Sodium 132 L Potassium 5.0 H D Chloride 93 L Carbon Dioxide 28 BUN 45 H D Creatinine 7.81 H Glucose 86 Calcium 9.3 - VTE Documentation of Mechanical Device: Intermittent pneumatic compression device Consult Discharge Plan - Plan Referrals: Genoveva Pepper CNP [Partnered Physician] - 11/18/16 10:40 am Constantin March MD [Partnered Physician] - 12/02/16 1:45 pm Lamont Mora DO [Partnered Physician] - 12/02/16 8:35 am
--- NOTE | 2016-11-14 07:23 | Anesthesia Evaluation Post Op ---
Date of Encounter: 11/13/16 Time of Encounter: 06:40 - Vital Signs Vital Signs: Selected Entries 11/13/16 06:00 Pulse Rate 71 Respiratory Rate 18 Blood Pressure 144/72 O2 Sat by Pulse Oximetry 92 L - Lungs Lungs: Clear Ascult./Percussion - Airway Airway: Non-obstructed - Cardiovascular Regular Rate - Mental Status Mental Status: Alert & Oriented, Answers Appropriately - Pain Pain Scale: 6 Pain Scale used: Numeric (1 - 10) - Nausea Vomiting Nausea Vomiting: Not Present - Hydration Hydration: Tolerates oral liquids Notes: 11/14/16 07:22 Patient POD#1 from thoracoscopy, still with pain. Transfer to floor is possible.
--- NOTE | 2016-11-14 08:58 | Nephrology Progress Note ---
Date of Encounter: 11/14/16 Time of Encounter: 08:56 - Assessment and Plan (1) Status post chest tube placement Current Visit: Yes Status: Acute per cardiothoracic team (2) Hyperkalemia Current Visit: Yes Status: Resolved (3) ESRD (end stage renal disease) on dialysis Current Visit: Yes Status: Chronic Plan for HD tomorrow Continue renal diet and fluid restriction Avoid nephrotoxins if possible (4) Noncompliance with medication regimen Current Visit: No Status: Acute Patient very non-compliant with HD treatments, diet and meds. Subjective Principal diagnosis: ESRD, Pleural effusion Interval history: Patient seen and examined. Sitting up in bed in no apparent distress, talks easily. Objective - Vital Signs Vital signs: Vital Signs Temp Pulse Resp BP Pulse Ox 11/14/16 08:00 97.9 F 78 18 177/96 96 11/14/16 00:00 83 17 167/79 11/13/16 20:00 84 18 139/80 11/13/16 19:43 18 96 11/13/16 15:53 98.3 F 77 16 155/79 97 11/13/16 13:44 97.9 F 20 122/68 11/13/16 13:15 117/76 11/13/16 13:00 129/70 11/13/16 12:45 114/60 11/13/16 12:30 113/59 11/13/16 12:15 119/59 11/13/16 12:00 122/60 11/13/16 11:45 123/60 11/13/16 11:30 119/62 11/13/16 11:15 118/58 11/13/16 11:00 108/62 11/13/16 10:45 123/64 11/13/16 10:30 115/71 11/13/16 10:15 139/68 11/13/16 10:00 98.1 F 18 111/74 Intake and Output 11/13/16 11/14/16 11/14/16 23:59 07:59 15:59 Intake Total 0 / 0 480 / 480 240 / 240 Output Total 30 / 30 150 / 150 Balance -30 / -30 330 / 330 240 / 240 Intake: Oral 0 / 0 480 / 480 240 / 240 Output: Urine 0 / 0 Catheter 100 / 100 Chest Tube Drainage 30 / 30 50 / 50 Right Lower Posterior 0 / 0 0 / 0 Chest Right Mid-Axillary Chest 30 / 30 50 / 50 #2 Other: Meal Breakfast Percent of Meal Consumed 100% Weight 139.5 kg Patient Weight 11/14/16 23:59 Weight 139.5 kg - General Appearance General appearance: Present: well-developed, well-nourished EENT: Present: ATNC, mucous membranes moist, hearing intact, vision intact Neck: Present: supple Cardiology: Present: edema (BLL edema), normal S1, normal S2 Dialysis Vascular Access: Arteriovenous Fistula Gastrointestinal: Present: no tenderness, no guarding Integumentary: Present: warm and dry Neurologic: Present: alert and oriented x3 Psychiatric: Present: mood/affect appropriate, cooperative - Lab 11/13/16 04:40 11/14/16 04:37 Most recent lab results ABG pH 7.36 pH Units (7.32-7.45) 11/13/16 04:25 ABG pCO2 50 mmHg (35-45) H 11/13/16 04:25 ABG pO2 62 mmHg (85-104) L 11/13/16 04:25 ABG HCO3 28.2 mEQ/L (21-27) H 11/13/16 04:25 ABG O2 Saturation 90 % (95-98) L 11/13/16 04:25 Calcium 9.3 mg/dL (8.6-10.8) 11/14/16 04:37 Phosphorus 8.5 mg/dL (2.3-4.7) H 11/10/16 05:58 Magnesium 1.9 mg/dL (1.6-2.6) 11/13/16 04:40 - VTE Documentation of Mechanical Device: Intermittent pneumatic compression device Consult Discharge Plan - Plan Referrals: Genoveva Pepper CNP [Partnered Physician] - 11/18/16 10:40 am Constantin March MD [Partnered Physician] - 12/02/16 1:45 pm Lamont Mora DO [Partnered Physician] - 12/02/16 8:35 am
[2016-11-14] MEDS: Furosemide 40 MG TABLET PO SCH (09:33)
[2016-11-14] MEDS: Aspirin Enteric Coated 81 MG Tablet PO SCH (09:33)
[2016-11-14] MEDS: Metoprolol XL (24 HR) Succ 50 MG TAB.ER.24H PO SCH (09:34)
[2016-11-14] MEDS: hydrALAZINE 10 MG TABLET PO SCH ×4 (09:35→19:48)
[2016-11-14] MEDS: Nicotine 7 MG PATCH.TD24 TD SCH (09:35)
[2016-11-14 09:45] LABS: Basophils % 0.6 %; Eosinophils # 0.3 K/mcL (0.0-0.6); Eosinophils % 4.4 %; Hematocrit 32.8 % (37.5-50.1); Hemoglobin 10.9 g/dL (12.9-16.9); Immature Granulocytes % 0.3 % (0-4); Lymphocytes # 1.1 K/mcL (0.6-4.6); Lymphocytes % 15.3 %; Mean Corpuscular HGB Conc 33.2 g/dL (31.6-35.5); Mean Corpuscular Hemoglobin 30.7 pg (28.0-33.3); Mean Corpuscular Volume 92.4 fL (83.0-100.0); Mean Platelet Volume 9.9 fL (9.4-12.4); Monocytes # 0.8 K/mcL (0.0-1.3); Monocytes % 10.9 %; Platelet Count 144 K/mcL (140-400); Red Blood Count 3.55 M/mcL (4.19-5.50); Red Cell Distribution Width 14.6 % (11.5-14.5); Segmented Neutrophils % 68.5 %
[2016-11-14] MEDS ORDERED: Ketorolac 15 MG/ML VIAL IVP SCH (12:00)
[2016-11-14] MEDS: Amoxicillin 500 MG CAPSULE PO SCH (17:13)
--- NOTE | 2016-11-14 18:32 | Internal Med Progress Note ---
<Ally Harmon Jake - Last Filed: 11/14/16 18:54> Date of Encounter: 11/14/16 Time of Encounter: 18:00 - Assessment and plan (1) Status post chest tube placement Current Visit: Yes Status: Acute Assessment and plan: Two chest tubes in place draining bloody fluid Continue to monitor output (2) Pleural effusion Current Visit: Yes Status: Acute Assessment and plan: Patient is s/p day#2 for right-sided mechanical and chemical pleurodesis per Dr. Thomas Chest tube management per CT surgery Continue pain control with PRN IV Dilaudid and Percocet (3) Acute on chronic systolic heart failure Current Visit: Yes Status: Acute Assessment and plan: Stable with dialysis (4) Hyperkalemia Current Visit: Yes Status: Resolved Assessment and plan: Hemodialysis tomorrow, per nephrology Monitor potassium closely Nephrology following (5) ESRD (end stage renal disease) on dialysis Current Visit: Yes Status: Chronic Assessment and plan: Nephrology on board for HD Hemodialysis tomorrow (6) Cigarette smoker Current Visit: Yes Status: Chronic Assessment and plan: Discussed smoking cessation Nicotine patch offered (7) Obesity Current Visit: Yes Status: Chronic Qualifiers: Obesity type: due to excess calories Obesity severity: unspecified obesity severity Qualified Code(s): E66.09 - Other obesity due to excess calories (8) DVT prophylaxis Current Visit: No Status: Acute Assessment and plan: Patient has EPCD's ordered, patient is very ambulatory at this time We will hold off on pharmacologic prophylaxis given the patient's chest tube and also scheduled dialysis - Time Spent With Patient 25 - 35 minutes (25 minutes including time with patient and coordinating care) - Subjective Interval history: Patient states that he is doing well. His pain is controlled at this time. He has intermittent pains to right back. Presently, he is very talkative and jovial. - Constitutional Vitals: Temp Pulse Resp BP Pulse Ox 98.0 F 73 16 127/61 96 11/14/16 14:57 11/14/16 14:57 11/14/16 14:57 11/14/16 14:57 11/14/16 14:57 General appearance: Present: A&O X 3, no acute distress, obese, answers questions appropriately - Head Head exam: Present: atraumatic, normocephalic - Eye Eye exam: Present: PERRL, conjuntiva pink, sclera anicteric Pupils: Present: PERRL - Neck Neck exam general surgery: Present: supple, trachea midline. Absent: lymphadenopathy - Respiratory Respiratory exam: Present: decreased breath sounds (to left lung base), rales ( to right lung base). Absent: accessory muscle use, CTAB, respiratory distress, rhonchi, wheezes, tachypnea Additional comments: Two chest tubes in place to right lateral chest wall First tube with 600mL and second tube with 200mL serosanguinous fluid - Cardiovascular Cardiovascular exam: Present: RRR, +S1, +S2. Absent: diastolic murmur, gallop, rubs, systolic murmur - GI/Abdominal GI/Abdominal exam: Present: normal bowel sounds, soft, no peritoneal signs. Absent: distended, tenderness - Extremities Exam Extremities exam: Present: pedal edema (2+ pitting edema to bilateral lower extremities and feet. feet cold to touch. unable to palpate pulses due to edema. bilateral feet with thickend skin and violaceous hue) - Neurological Exam Neurological exam: Present: CN II-XII intact, oriented X3, no focal deficits. Absent: pronater drift, facial droop, speech deficit - Skin Skin exam: Present: dry, intact Internal Medicine: Result - Labs CBC & Chem 7: 11/14/16 09:18 11/14/16 04:37 Labs: Short CBC 11/14/16 Range/Units 09:18 WBC 7.3 (4.3-11.1) K/mcL Hgb 10.9 L (12.9-16.9) g/dL Hct 32.8 L (37.5-50.1) % Plt Count 144 (140-400) K/mcL Neutrophils # 5.0 (1.6-8.9) K/mcL BMP 11/14/16 04:37 Sodium 132 L Potassium 5.0 H D Chloride 93 L Carbon Dioxide 28 BUN 45 H D Creatinine 7.81 H Glucose 86 Calcium 9.3 - ABG Interpretation ABG results: ABG ABG pH 7.36 pH Units (7.32-7.45) 11/13/16 04:25 ABG pCO2 50 mmHg (35-45) H 11/13/16 04:25 ABG pO2 62 mmHg (85-104) L 11/13/16 04:25 ABG O2 Saturation 90 % (95-98) L 11/13/16 04:25 PT/INR, D-dimer PT 12.8 Seconds (9.4-12.1) H 11/06/16 23:40 - VTE Documentation of Mechanical Device: Intermittent pneumatic compression device Consult Discharge Plan - Plan Referrals: Genoveva Pepper CNP [Partnered Physician] - 11/18/16 10:40 am Constantin March MD [Partnered Physician] - 12/02/16 1:45 pm Lamont Mora DO [Partnered Physician] - 12/02/16 8:35 am - Attending Attestation I examined this patient and my medical decision-making was reviewed with the SOUND EFFECTS PERSON/PA/Advanced Practice Nurse/Resident Physician. I agree with the documented findings, disposition and treatment plan as described except to the extent set forth below. <Vicente Mayfield - Last Filed: 11/15/16 07:34> - Constitutional Vitals: Temp Pulse Resp BP Pulse Ox 98.5 F 78 16 134/89 96 11/15/16 07:30 11/15/16 07:30 11/15/16 07:30 11/15/16 07:30 11/15/16 07:30 Internal Medicine: Result - Labs CBC & Chem 7: 11/15/16 06:06 11/14/16 04:37 Labs: Short CBC 11/14/16 11/15/16 Range/Units 09:18 06:06 WBC 7.3 5.8 (4.3-11.1) K/mcL Hgb 10.9 L 10.5 L (12.9-16.9) g/dL Hct 32.8 L 32.7 L (37.5-50.1) % Plt Count 144 137 L (140-400) K/mcL Neutrophils # 5.0 3.7 (1.6-8.9) K/mcL - ABG Interpretation ABG results: ABG ABG pH 7.36 pH Units (7.32-7.45) 11/13/16 04:25 ABG pCO2 50 mmHg (35-45) H 11/13/16 04:25 ABG pO2 62 mmHg (85-104) L 11/13/16 04:25 ABG O2 Saturation 90 % (95-98) L 11/13/16 04:25 PT/INR, D-dimer PT 12.8 Seconds (9.4-12.1) H 11/06/16 23:40 - Impressions Impressions Chest X-Ray 11/15/16 06:00 IMPRESSION: Right-sided pneumothorax is not easily seen on this study. New chest tubes are seen. Right basilar consolidation and right-sided pleural effusion remain D/ / Lui Ayala MD / Lui Ayala MD Interpreting Provider: Lui Ayala MD - Attending Attestation I examined this patient and my medical decision-making was reviewed with the SOUND EFFECTS PERSON/PA/Advanced Practice Nurse/Resident Physician. I agree with the documented findings, disposition and treatment plan as described except to the extent set forth below. Mr. Snyder was seen and examined during morning rounds. Constipation noted, will give MiraLAX today and continue monitoring the patient. Management of chest tubes according to recommendations by cardiothoracic surgery. Hemodialysis as scheduled by nephrology. Avoid fluid overload.
[2016-11-14] MEDS: Lactulose Oral Soln 20 GM/30 ML UDC PO SCH ×2 (19:48→21:42)
[2016-11-15] MEDS: *HR* HYDROmorphone (PF) 1 MG/ML SYRINGE IVP PRN ×9 (00:02→22:44)
[2016-11-15] MEDS: Lactulose Oral Soln 20 GM/30 ML UDC PO SCH ×3 (02:36→22:43)
[2016-11-15 06:54] LABS: Basophils # 0.1 K/mcL (0.0-0.2); Eosinophils # 0.3 K/mcL (0.0-0.6); Eosinophils % 5.7 %; Hematocrit 32.7 % (37.5-50.1); Hemoglobin 10.5 g/dL (12.9-16.9); Immature Granulocytes % 0.2 % (0-4); Lymphocytes # 1.1 K/mcL (0.6-4.6); Lymphocytes % 19.5 %; Mean Corpuscular HGB Conc 32.1 g/dL (31.6-35.5); Mean Corpuscular Volume 93.4 fL (83.0-100.0); Mean Platelet Volume 10.1 fL (9.4-12.4); Monocytes # 0.6 K/mcL (0.0-1.3); Monocytes % 9.6 %; Neutrophils # 3.7 K/mcL (1.6-8.9); Platelet Count 137 K/mcL (140-400); Red Cell Distribution Width 14.4 % (11.5-14.5)
[2016-11-15 07:17] LABS: Albumin/Globulin Ratio 0.6 (1.1-2.2); Alkaline Phosphatase 129 Units/L (38-126); Aspartate Amino Transferase 13 Units/L (5-34); BUN/Creatinine Ratio 6 (6-26); Bilirubin,Total 0.6 mg/dL (0.2-1.2); Calcium 8.5 mg/dL (8.6-10.8); Carbon Dioxide 23 mEq/L (19-29); Chloride 96 mEq/L (98-109); Globulin 3.4 g/dL (2.4-3.5); Glucose 77 mg/dL (70-99); Osmolality,Calculated 289 (280-300); Sodium 132 mEq/L (136-145); Total Protein 5.4 g/dL (6.0-8.3); eGFR For African Americans 8 (> 60); eGFR For Non-African Americans 7 (> 60)
--- NOTE | 2016-11-15 07:56 | Cardiothoracic Progress Note ---
Date of Encounter: 11/15/16 Time of Encounter: 07:54 - Assessment and plan (1) Pleural effusion Current Visit: Yes Status: Acute The patient is recovering well from his right VATS, pleural biopsy, and pleurodesis. The chest tube output is decreasing. Chest x-ray appearance is improving; however, patient has a persistent right apical pneumothorax. The chest tubes will remained on suction. The assessment and plan as outlined above was discussed with the patient and/or family members who expressed understanding and agreement. All questions were answered. - Subjective Procedure(s) Performed: POD#3 S/P Right VATS with pleural biopsy and pleurodesis. Interval history: The patient is sitting comfortably at his bedside. He is breathing comfortably. He has no complaints. Vital Signs, Last 4 Hours Temp Pulse Resp BP Pulse Ox 11/15/16 07:30 98.5 F 78 16 134/89 96 11/15/16 04:00 97.6 F 69 16 134/87 99 Oxgyen Flow Rate Oxygen Flow Rate (LPM) 2 Clinical Data, last 8 Hours Output, Chest Tube Drainage 0 Amount [Right Mid-Axillary Chest #2] Output, Chest Tube Drainage 20 Amount [Right Mid-Axillary Chest #2] Output, Chest Tube Drainage 0 Amount [Right Lower Posterior Chest] Output, Chest Tube Drainage 0 Amount [Right Lower Posterior Chest] Output, Urine Amount 0 Weight 11/13/16 11/14/16 11/15/16 23:59 23:59 23:59 Weight 130.5 kg 139.5 kg - Physical Examination General: Conversant, No Apparent Distress Neck: No JVD, Normal carotid pulses Cardiac: Reg Rate and Rhythm, Normal S1 and S2, No Murmur Incision: No signs of infection, Dry/intact dressing Sternum: Stable Chest tubes: Minimal drainage, Other (No air leak.) Neuro: Alert and responsive, No focal deficits noted Vascular: Normal capillary refill Musculoskeletal: No Chest Wall Tenderness Extremities: No Clubbing, No Cyanosis, No Edema - Labs 11/15/16 06:06 11/14/16 04:37 Lab Results, Last 24 hours 11/14/16 11/15/16 09:18 06:06 WBC 7.3 5.8 Hgb 10.9 L 10.5 L Hct 32.8 L 32.7 L Plt Count 144 137 L - Imaging Chest Xray: image reviewed (Small right apical pneumothorax. Right basilar atelectasis and effusion.) - VTE Documentation of Mechanical Device: Intermittent pneumatic compression device Consult Discharge Plan - Plan Referrals: Genoveva Pepper CNP [Partnered Physician] - 11/18/16 10:40 am Constantin March MD [Partnered Physician] - 12/02/16 1:45 pm Lamont Mora DO [Partnered Physician] - 12/02/16 8:35 am
[2016-11-15] MEDS ORDERED: 0.9 % Sodium Chloride 250 ML IV PRN (08:11)
[2016-11-15] MEDS ORDERED: 0.9 % Sodium Chloride 1,000 ML PRIME SCH (08:15)
[2016-11-15 08:17] LABS: Alanine Aminotransferase < 6 Units/L (0-55); Blood Urea Nitrogen 58 mg/dL (8-26)
[2016-11-15] MEDS: Aspirin Enteric Coated 81 MG Tablet PO SCH (08:24)
[2016-11-15] MEDS: Nicotine 7 MG PATCH.TD24 TD SCH (08:24)
[2016-11-15] MEDS: hydrALAZINE 10 MG TABLET PO SCH ×4 (08:24→20:42)
[2016-11-15] MEDS: Furosemide 40 MG TABLET PO SCH (08:24)
[2016-11-15] MEDS: Metoprolol XL (24 HR) Succ 50 MG TAB.ER.24H PO SCH (08:25)
[2016-11-15] MEDS: *HR* HYDROcodone/Acet 5/325 mg TABLET PO PRN ×2 (09:27→16:01)
--- NOTE | 2016-11-15 10:19 | Nephrology Progress Note ---
Date of Encounter: 11/15/16 Time of Encounter: : - Assessment and Plan (1) ESRD (end stage renal disease) on dialysis Current Visit: Yes Status: Chronic Will continue HD MWF and adjust UF as needed. Provide renal diet. Adjust medication for renal function. Will provide additional renal replacement therapies as needed. (2) Pleural effusion Current Visit: Yes Status: Acute Management per cardiothoracic surgery. Patient s/p VATS, pleural biopsy, and pleurodesis. Patient with a right sided pneumothorax and has chest tubes in place. (3) Anemia in CKD (chronic kidney disease) Current Visit: No Status: Chronic Hemoglobin stable. Transfuse as needed. Monitor for bleeding. Provide KALYANI if patient will have a prolonged hospitalization. (4) Hyperkalemia Current Visit: No Status: Acute HD today. Renal diet. Patient is known to be nonadherant to medical advice. Subjective Principal diagnosis: ESRD, Pleural effusion Interval history: Patient was seen while on dialysis. He states he is tired from insomnia and from his pain medications. He feels swollen. ROS otherwise stable. Objective - Vital Signs Vital signs: Vital Signs Temp Pulse Resp BP Pulse Ox 11/15/16 07:30 98.5 F 78 16 134/89 96 11/15/16 04:00 97.6 F 69 16 134/87 99 11/15/16 00:10 97.9 F 81 18 133/77 97 11/14/16 20:05 97.7 F 72 17 122/75 95 11/14/16 14:57 98.0 F 73 16 127/61 96 11/14/16 12:05 97.8 F 77 18 192/90 96 Intake and Output 11/14/16 11/15/16 11/15/16 23:59 07:59 15:59 Intake Total 240 / 240 300 / 300 240 / 240 Output Total 20 Balance 210 / 210 280 / 280 240 / 240 Intake: Oral 240 / 240 300 / 300 240 / 240 Output: Urine 0 / 0 Chest Tube Drainage Right Lower Posterior 0 / 0 Chest Right Mid-Axillary Chest #2 Other: Meal Dinner Breakfast Percent of Meal Consumed 100% 100% - General Appearance General appearance: Present: well-developed, well-nourished EENT: Present: ATNC Neck: Present: supple Respiratory: Present: clear Cardiology: Present: edema (2-3+ bilateral lower extremities. ) Dialysis Vascular Access: Arteriovenous Fistula Gastrointestinal: Present: normoactive bowel sounds, no tenderness Integumentary: Present: warm and dry Neurologic: Present: alert and oriented x3 Musculoskeletal: Present: no cyanosis Psychiatric: Present: mood/affect appropriate - Lab 11/15/16 06:06 11/15/16 06:06 Most recent lab results ABG pH 7.36 pH Units (7.32-7.45) 11/13/16 04:25 ABG pCO2 50 mmHg (35-45) H 11/13/16 04:25 ABG pO2 62 mmHg (85-104) L 11/13/16 04:25 ABG HCO3 28.2 mEQ/L (21-27) H 11/13/16 04:25 ABG O2 Saturation 90 % (95-98) L 11/13/16 04:25 Calcium 8.5 mg/dL (8.6-10.8) L 11/15/16 06:06 Phosphorus 8.5 mg/dL (2.3-4.7) H 11/10/16 05:58 Magnesium 1.9 mg/dL (1.6-2.6) 11/13/16 04:40 - VTE Documentation of Mechanical Device: Intermittent pneumatic compression device Consult Discharge Plan - Plan Referrals: Genoveva Pepper CNP [Partnered Physician] - 11/18/16 10:40 am Constantin March MD [Partnered Physician] - 12/02/16 1:45 pm Lamont Mora DO [Partnered Physician] - 12/02/16 8:35 am
--- NOTE | 2016-11-15 14:39 | Internal Med Progress Note ---
<Ally Harmon Jake - Last Filed: 11/15/16 14:37> Date of Encounter: 11/15/16 Time of Encounter: 10:30 - Assessment and plan (1) Status post chest tube placement Current Visit: Yes Status: Acute Assessment and plan: Two chest tubes in place draining bloody fluid Continue to monitor output (2) Pleural effusion Current Visit: Yes Status: Acute Assessment and plan: Patient is s/p day#3 for right-sided mechanical and chemical pleurodesis per Dr. Thomas Chest tube management per CT surgery Continue pain control with PRN IV Dilaudid and Percocet (3) Acute on chronic systolic heart failure Current Visit: Yes Status: Acute Assessment and plan: Stable with dialysis (4) Hyperkalemia Current Visit: Yes Status: Resolved Assessment and plan: Hemodialysis today Monitor potassium closely Nephrology following (5) ESRD (end stage renal disease) on dialysis Current Visit: Yes Status: Chronic Assessment and plan: Nephrology on board Hemodialysis today (6) Cigarette smoker Current Visit: Yes Status: Chronic Assessment and plan: Discussed smoking cessation Nicotine patch offered (7) Obesity Current Visit: Yes Status: Chronic Qualifiers: Obesity type: due to excess calories Obesity severity: unspecified obesity severity Qualified Code(s): E66.09 - Other obesity due to excess calories (8) DVT prophylaxis Current Visit: No Status: Acute Assessment and plan: Patient has EPCD's ordered We will hold off on pharmacologic prophylaxis given the patient's chest tube and also scheduled dialysis - Time Spent With Patient 25 - 35 minutes (25 minutes including time with patient and coordinating care) - Subjective Interval history: Patient was seen in the dialysis room while receiving dialysis. He was awakened from sleep by me to perform patient interview. He states that he did not sleep last night. He states that his chest wall has pos-operative pain. No other complaints at this time. - Constitutional Vitals: Temp Pulse Resp BP Pulse Ox 98.5 F 78 16 140/79 96 11/15/16 13:40 11/15/16 07:30 11/15/16 13:40 11/15/16 13:40 11/15/16 08:00 General appearance: Present: A&O X 3, no acute distress, obese, answers questions appropriately - Head Head exam: Present: atraumatic, normocephalic - Eye Eye exam: Present: PERRL, conjuntiva pink, sclera anicteric Pupils: Present: PERRL - Neck Neck exam general surgery: Present: supple, trachea midline - Respiratory Respiratory exam: Present: chest wall tenderness (expected post-surgical tenderness), decreased breath sounds (RLQ), rhonchi (RLQ). Absent: accessory muscle use, rales, respiratory distress, tachypnea Additional comments: Two chest tubes in place draining serosanguinous fluid - Cardiovascular Cardiovascular exam: Present: RRR, +S1, +S2. Absent: diastolic murmur, gallop, rubs, systolic murmur - GI/Abdominal GI/Abdominal exam: Present: normal bowel sounds, soft, no peritoneal signs. Absent: distended, tenderness Additional comments: Suprpubic catheter in place draining dark yellow urine - Extremities Exam Extremities exam: Present: pedal edema (2+ tense non-pitting edema in feet. skin of bilateral feet with deon-violaceous hue), warm, radial pulses palpable and symetrical. Absent: cyanotic - Neurological Exam Neurological exam: Present: CN II-XII intact, oriented X3, no focal deficits. Absent: pronater drift, facial droop, speech deficit - Skin Skin exam: Present: dry, intact Internal Medicine: Result - Labs CBC & Chem 7: 11/15/16 06:06 11/15/16 06:06 Labs: Short CBC 11/15/16 Range/Units 06:06 WBC 5.8 (4.3-11.1) K/mcL Hgb 10.5 L (12.9-16.9) g/dL Hct 32.7 L (37.5-50.1) % Plt Count 137 L (140-400) K/mcL Neutrophils # 3.7 (1.6-8.9) K/mcL BMP 11/15/16 06:06 Sodium 132 L Potassium 6.0 H D Chloride 96 L Carbon Dioxide 23 BUN 58 H D Creatinine 9.42 H Glucose 77 Calcium 8.5 L Liver Function 11/15/16 Range/Units 06:06 Total Bilirubin 0.6 (0.2-1.2) mg/dL AST 13 (5-34) Units/L ALT < 6 (0-55) Units/L Alkaline Phosphatase 129 H (38-126) Units/L Albumin 2.0 L (3.5-5.0) g/dL - ABG Interpretation ABG results: ABG ABG pH 7.36 pH Units (7.32-7.45) 11/13/16 04:25 ABG pCO2 50 mmHg (35-45) H 11/13/16 04:25 ABG pO2 62 mmHg (85-104) L 11/13/16 04:25 ABG O2 Saturation 90 % (95-98) L 11/13/16 04:25 PT/INR, D-dimer PT 12.8 Seconds (9.4-12.1) H 11/06/16 23:40 - Impressions Impressions Chest X-Ray 11/15/16 06:00 IMPRESSION: Right-sided pneumothorax is not easily seen on this study. New chest tubes are seen. Right basilar consolidation and right-sided pleural effusion remain D/ / Lui Ayala MD / Lui Ayala MD Interpreting Provider: Lui Ayala MD - VTE Documentation of Mechanical Device: Intermittent pneumatic compression device Consult Discharge Plan - Plan Referrals: Genoveva Pepper CNP [Partnered Physician] - 11/18/16 10:40 am Constantin March MD [Partnered Physician] - 12/02/16 1:45 pm Lamont Mora DO [Partnered Physician] - 12/02/16 8:35 am - Attending Attestation I examined this patient and my medical decision-making was reviewed with the EDGE MOLDER/PA/Advanced Practice Nurse/Resident Physician. I agree with the documented findings, disposition and treatment plan as described except to the extent set forth below. <Vicente Mayfield - Last Filed: 11/15/16 15:27> - Constitutional Vitals: Temp Pulse Resp BP Pulse Ox 98.0 F 84 15 141/77 94 L 11/15/16 15:14 11/15/16 15:14 11/15/16 15:14 11/15/16 15:14 11/15/16 15:14 Internal Medicine: Result - Labs CBC & Chem 7: 11/15/16 06:06 11/15/16 06:06 Labs: Short CBC 11/15/16 Range/Units 06:06 WBC 5.8 (4.3-11.1) K/mcL Hgb 10.5 L (12.9-16.9) g/dL Hct 32.7 L (37.5-50.1) % Plt Count 137 L (140-400) K/mcL Neutrophils # 3.7 (1.6-8.9) K/mcL BMP 11/15/16 06:06 Sodium 132 L Potassium 6.0 H D Chloride 96 L Carbon Dioxide 23 BUN 58 H D Creatinine 9.42 H Glucose 77 Calcium 8.5 L Liver Function 11/15/16 Range/Units 06:06 Total Bilirubin 0.6 (0.2-1.2) mg/dL AST 13 (5-34) Units/L ALT < 6 (0-55) Units/L Alkaline Phosphatase 129 H (38-126) Units/L Albumin 2.0 L (3.5-5.0) g/dL - ABG Interpretation ABG results: ABG ABG pH 7.36 pH Units (7.32-7.45) 11/13/16 04:25 ABG pCO2 50 mmHg (35-45) H 11/13/16 04:25 ABG pO2 62 mmHg (85-104) L 11/13/16 04:25 ABG O2 Saturation 90 % (95-98) L 11/13/16 04:25 PT/INR, D-dimer PT 12.8 Seconds (9.4-12.1) H 11/06/16 23:40 - Impressions Impressions Chest X-Ray 11/15/16 06:00 IMPRESSION: Right-sided pneumothorax is not easily seen on this study. New chest tubes are seen. Right basilar consolidation and right-sided pleural effusion remain D/ / Lui Ayala MD / Lui Ayala MD Interpreting Provider: Lui Ayala MD - Attending Attestation I examined this patient and my medical decision-making was reviewed with the EDGE MOLDER/PA/Advanced Practice Nurse/Resident Physician. I agree with the documented findings, disposition and treatment plan as described except to the extent set forth below. Stable. HD today. CXR reviewed. CTS following.
[2016-11-15] MEDS: Amoxicillin 500 MG CAPSULE PO SCH (17:15)
[2016-11-16] MEDS: *HR* HYDROmorphone (PF) 1 MG/ML SYRINGE IVP PRN ×8 (01:12→22:34)
[2016-11-16] MEDS: *HR* HYDROcodone/Acet 5/325 mg TABLET PO PRN ×3 (03:26→22:04)
[2016-11-16 06:01] LABS: Basophils % 0.6 %; Eosinophils # 0.4 K/mcL (0.0-0.6); Hematocrit 35.9 % (37.5-50.1); Hemoglobin 11.4 g/dL (12.9-16.9); Immature Granulocytes % 0.2 % (0-4); Lymphocytes # 0.8 K/mcL (0.6-4.6); Lymphocytes % 14.7 %; Mean Corpuscular HGB Conc 31.8 g/dL (31.6-35.5); Mean Corpuscular Hemoglobin 29.8 pg (28.0-33.3); Monocytes # 0.5 K/mcL (0.0-1.3); Neutrophils # 3.7 K/mcL (1.6-8.9); Platelet Count 156 K/mcL (140-400); Red Blood Count 3.82 M/mcL (4.19-5.50); Red Cell Distribution Width 14.3 % (11.5-14.5); Segmented Neutrophils % 68.5 %
[2016-11-16 06:15] LABS: Albumin 2.3 g/dL (3.5-5.0); Albumin/Globulin Ratio 0.6 (1.1-2.2); Alkaline Phosphatase 173 Units/L (38-126); Aspartate Amino Transferase 13 Units/L (5-34); BUN/Creatinine Ratio 5 (6-26); Bilirubin,Total 0.8 mg/dL (0.2-1.2); Calcium 8.9 mg/dL (8.6-10.8); Carbon Dioxide 27 mEq/L (19-29); Chloride 95 mEq/L (98-109); Globulin 4.1 g/dL (2.4-3.5); Glucose 95 mg/dL (70-99); Osmolality,Calculated 289 (280-300); Potassium 5.1 mEq/L (3.5-4.5); Sodium 135 mEq/L (136-145); Total Protein 6.4 g/dL (6.0-8.3); eGFR For African Americans 11 (> 60); eGFR For Non-African Americans 9 (> 60)
[2016-11-16 06:16] LABS: Alanine Aminotransferase < 6 Units/L (0-55); Blood Urea Nitrogen 39 mg/dL (8-26)
[2016-11-16] MEDS ORDERED: 0.9 % Sodium Chloride 250 ML IV PRN (08:01)
[2016-11-16] MEDS: Aspirin Enteric Coated 81 MG Tablet PO SCH (08:10)
[2016-11-16] MEDS: Metoprolol XL (24 HR) Succ 50 MG TAB.ER.24H PO SCH (08:10)
[2016-11-16] MEDS: Furosemide 40 MG TABLET PO SCH (08:10)
[2016-11-16] MEDS: hydrALAZINE 10 MG TABLET PO SCH ×4 (08:10→20:16)
[2016-11-16] MEDS: Nicotine 7 MG PATCH.TD24 TD SCH (08:12)
[2016-11-16] MEDS: Lactulose Oral Soln 20 GM/30 ML UDC PO SCH ×2 (08:12→20:09)
--- NOTE | 2016-11-16 10:19 | Cardiothoracic Progress Note ---
Date of Encounter: 11/16/16 Time of Encounter: 10:18 - Assessment and plan (1) Pleural effusion Current Visit: Yes Status: Acute The patient is recovering well from his right VATS, pleural biopsy, and pleurodesis. The chest tube output is decreasing. Chest x-ray appearance is improving. The chest tubes will remained on suction. The assessment and plan as outlined above was discussed with the patient and/or family members who expressed understanding and agreement. All questions were answered. - Subjective Procedure(s) Performed: POD#4 S/P Right VATS with pleural biopsy and pleurodesis. Interval history: The patient is sitting comfortably at his bedside. He is breathing comfortably. He has no complaints. Vital Signs, Last 4 Hours Temp Pulse Resp BP Pulse Ox 11/16/16 08:01 97.8 F 81 15 149/89 99 Oxgyen Flow Rate Oxygen Flow Rate (LPM) 2 Clinical Data, last 8 Hours Output, Chest Tube Drainage 30 Amount [Right Mid-Axillary Chest #2] Output, Chest Tube Drainage 0 Amount [Right Mid-Axillary Chest #2] Output, Chest Tube Drainage 10 Amount [Right Lower Posterior Chest] Output, Chest Tube Drainage 0 Amount [Right Lower Posterior Chest] Weight 11/14/16 11/15/16 11/16/16 23:59 23:59 23:59 Weight 139.5 kg 129.5 kg - Physical Examination General: Conversant, No Apparent Distress Neck: No JVD, Normal carotid pulses Cardiac: Reg Rate and Rhythm, Normal S1 and S2, No Murmur Incision: No signs of infection, Dry/intact dressing Chest tubes: Minimal drainage, Other (No air leak.) Lungs: Normal Breath Sounds, No Wheeze, Rales, Rhonchi Neuro: Alert and responsive, No focal deficits noted Vascular: Normal capillary refill Extremities: No Clubbing, No Cyanosis, No Edema - Labs 11/16/16 05:12 11/16/16 05:12 Lab Results, Last 24 hours 11/16/16 11/16/16 05:12 05:12 WBC 5.4 Hgb 11.4 L Hct 35.9 L Plt Count 156 Sodium 135 L Potassium 5.1 H Chloride 95 L Carbon Dioxide 27 BUN 39 H D Creatinine 7.33 H Glucose 95 Calcium 8.9 Total Bilirubin 0.8 AST 13 ALT < 6 Alkaline Phosphatase 173 H - Imaging Chest Xray: image reviewed (No pneumothorax. Right lower lobe atelectasis/ contusion.) - VTE Documentation of Mechanical Device: Intermittent pneumatic compression device Consult Discharge Plan - Plan Referrals: Genoveva Pepper CNP [Partnered Physician] - 11/18/16 10:40 am Constantin March MD [Partnered Physician] - 12/02/16 1:45 pm Lamont Mora DO [Partnered Physician] - 12/02/16 8:35 am
--- NOTE | 2016-11-16 12:07 | Nephrology Progress Note ---
Date of Encounter: 11/16/16 Time of Encounter: 12:05 - Assessment and Plan (1) ESRD (end stage renal disease) on dialysis Current Visit: Yes Status: Chronic Will continue HD MWF and adjust UF as needed. Provide renal diet. Adjust medication for renal function. Will provide additional renal replacement therapies as needed. HD today for hyperkalemia and volume overload. (2) Pleural effusion Current Visit: Yes Status: Acute Management per cardiothoracic surgery. Patient s/p VATS, pleural biopsy, and pleurodesis. Patient with a right sided pneumothorax and has chest tubes in place. (3) Anemia in CKD (chronic kidney disease) Current Visit: No Status: Chronic Hemoglobin stable. Transfuse as needed. Monitor for bleeding. Provide KALYANI if patient will have a prolonged hospitalization. (4) Hyperkalemia Current Visit: No Status: Acute HD today. Renal diet. Patient is known to be nonadherant to medical advice. Subjective Principal diagnosis: ESRD, Pleural effusion Interval history: Patient was seen while on dialysis. He is asleep and not awakened. Appears comfortable and is tolerating dialysis well. Objective - Vital Signs Vital signs: Vital Signs Temp Pulse Resp BP Pulse Ox 11/16/16 11:45 128/68 11/16/16 11:30 122/67 11/16/16 11:15 131/69 11/16/16 11:00 120/68 11/16/16 10:45 134/80 11/16/16 10:30 97.8 F 16 137/71 11/16/16 08:01 97.8 F 81 15 149/89 99 11/16/16 04:00 97.8 F 84 16 150/91 99 11/15/16 21:00 98.1 F 89 16 145/86 99 11/15/16 15:14 98.0 F 84 15 141/77 94 L 11/15/16 13:40 98.5 F 16 140/79 11/15/16 13:30 130/62 11/15/16 13:15 134/70 11/15/16 13:00 125/73 11/15/16 12:45 132/65 11/15/16 12:30 128/71 11/15/16 12:15 133/68 Intake and Output 11/15/16 11/16/16 11/16/16 23:59 07:59 15:59 Intake Total 1160 / 1160 Output Total 90 / 90 40 / 40 0 / 0 Balance -90 / -90 -40 / -40 1160 / 1160 Intake: Oral 560 / 560 Intake, Rinseback and 600 / 600 Flushes Output: Catheter 0 / 0 Chest Tube Drainage 90 / 90 40 / 40 Right Lower Posterior 40 / 40 10 / 10 Chest Right Mid-Axillary Chest 50 / 50 30 / 30 #2 Other: Meal Breakfast Percent of Meal Consumed 100% Stool Size Large Stool Consistency formed Stool Color Brown Weight 129.5 kg Hemodialysis Net Fluid 1499 Removed (mL) Patient Weight 11/16/16 23:59 Weight 129.5 kg - General Appearance General appearance: Present: well-developed, well-nourished, obese EENT: Present: ATNC Neck: Present: supple Respiratory: Present: clear Cardiology: Present: edema, regular rate, regular rhythm Gastrointestinal: Present: normoactive bowel sounds, no tenderness Integumentary: Present: warm and dry Musculoskeletal: Present: no cyanosis - Lab 11/16/16 05:12 11/16/16 05:12 Most recent lab results ABG pH 7.36 pH Units (7.32-7.45) 11/13/16 04:25 ABG pCO2 50 mmHg (35-45) H 11/13/16 04:25 ABG pO2 62 mmHg (85-104) L 11/13/16 04:25 ABG HCO3 28.2 mEQ/L (21-27) H 11/13/16 04:25 ABG O2 Saturation 90 % (95-98) L 11/13/16 04:25 Calcium 8.9 mg/dL (8.6-10.8) 11/16/16 05:12 Phosphorus 8.5 mg/dL (2.3-4.7) H 11/10/16 05:58 Magnesium 1.9 mg/dL (1.6-2.6) 11/13/16 04:40 - VTE Documentation of Mechanical Device: Intermittent pneumatic compression device Consult Discharge Plan - Plan Referrals: Genoveva Pepper CNP [Partnered Physician] - 11/18/16 10:40 am Constantin March MD [Partnered Physician] - 12/02/16 1:45 pm Lamont Mora DO [Partnered Physician] - 12/02/16 8:35 am
[2016-11-16] MEDS ORDERED: 0.9 % Sodium Chloride 2,000 ML ONE (15:16)
--- NOTE | 2016-11-16 15:57 | Internal Med Progress Note ---
Date of Encounter: 11/16/16 Time of Encounter: 11:00 - Assessment and plan (1) Pleural effusion Current Visit: Yes Status: Acute Assessment and plan: Patient is s/p day#4 for right-sided mechanical and chemical pleurodesis per Dr. Thomas Chest tube management per CT surgery Continue pain control with PRN IV Dilaudid and Percocet (2) Status post chest tube placement Current Visit: Yes Status: Acute Assessment and plan: Two chest tubes in place draining bloody fluid Continue to monitor output (3) ESRD (end stage renal disease) on dialysis Current Visit: No Status: Chronic Assessment and plan: HD as per nephrology. (4) Hyperkalemia Current Visit: Yes Status: Acute Assessment and plan: HD today. - Time Spent With Patient 25 - 35 minutes - Subjective Interval history: Patient was seen and examined on rounds. He was evaluated before he went for dialysis. - Constitutional Vitals: Temp Pulse Resp BP Pulse Ox 97.8 F 81 14 137/74 99 11/16/16 13:40 11/16/16 08:01 11/16/16 13:40 11/16/16 13:40 11/16/16 08:01 General appearance: Present: A&O X 3, no acute distress, obese, answers questions appropriately Exam: Chest tubes placed. Edema in both lower extremities. Edema in abd wall. - Head Head exam: Present: atraumatic, normocephalic - Eye Eye exam: Present: PERRL, conjuntiva pink, sclera anicteric Pupils: Present: PERRL - Neck Neck exam general surgery: Present: supple, trachea midline. Absent: lymphadenopathy - Respiratory Respiratory exam: Present: decreased breath sounds. Absent: accessory muscle use, rales, rhonchi, wheezes - Cardiovascular Cardiovascular exam: Present: RRR, +S1, +S2. Absent: diastolic murmur, gallop, rubs, systolic murmur - GI/Abdominal GI/Abdominal exam: Present: normal bowel sounds, soft, no peritoneal signs. Absent: distended, tenderness - Extremities Exam Extremities exam: Present: warm, radial pulses palpable and symetrical. Absent : calf tenderness, cyanotic, pedal edema - Neurological Exam Neurological exam: Present: CN II-XII intact, oriented X3, no focal deficits. Absent: pronater drift, facial droop, speech deficit - Skin Skin exam: Present: dry, intact Internal Medicine: Result - Labs CBC & Chem 7: 11/16/16 05:12 11/16/16 05:12 Labs: Short CBC 11/16/16 Range/Units 05:12 WBC 5.4 (4.3-11.1) K/mcL Hgb 11.4 L (12.9-16.9) g/dL Hct 35.9 L (37.5-50.1) % Plt Count 156 (140-400) K/mcL Neutrophils # 3.7 (1.6-8.9) K/mcL BMP 11/16/16 05:12 Sodium 135 L Potassium 5.1 H Chloride 95 L Carbon Dioxide 27 BUN 39 H D Creatinine 7.33 H Glucose 95 Calcium 8.9 Liver Function 11/16/16 Range/Units 05:12 Total Bilirubin 0.8 (0.2-1.2) mg/dL AST 13 (5-34) Units/L ALT < 6 (0-55) Units/L Alkaline Phosphatase 173 H (38-126) Units/L Albumin 2.3 L (3.5-5.0) g/dL - ABG Interpretation ABG results: ABG ABG pH 7.36 pH Units (7.32-7.45) 11/13/16 04:25 ABG pCO2 50 mmHg (35-45) H 11/13/16 04:25 ABG pO2 62 mmHg (85-104) L 11/13/16 04:25 ABG O2 Saturation 90 % (95-98) L 11/13/16 04:25 PT/INR, D-dimer PT 12.8 Seconds (9.4-12.1) H 11/06/16 23:40 - Impressions Impressions Chest X-Ray 11/16/16 06:00 IMPRESSION: Two right-sided chest tubes. No obvious pneumothorax on plain film imaging. Atelectasis or contusion in the right lung base. Mild subcutaneous emphysema in the right chest wall. D/ / 11/16/2016 09:57:33 Alysia Andersen MD / Nora Daniels Interpreting Provider: Alysia Andersen MD - VTE Documentation of Mechanical Device: Intermittent pneumatic compression device Consult Discharge Plan - Plan Referrals: Genoveva Pepper CNP [Partnered Physician] - 11/18/16 10:40 am Constantin March MD [Partnered Physician] - 12/02/16 1:45 pm Lamont Mora DO [Partnered Physician] - 12/02/16 8:35 am
[2016-11-16] MEDS: Amoxicillin 500 MG CAPSULE PO SCH (16:35)
[2016-11-17] MEDS: *HR* HYDROmorphone (PF) 1 MG/ML SYRINGE IVP PRN ×10 (00:46→22:39)
[2016-11-17] MEDS: *HR* HYDROcodone/Acet 5/325 mg TABLET PO PRN ×2 (02:14→23:42)
[2016-11-17 04:47] LABS: Basophils % 0.8 %; Eosinophils # 0.4 K/mcL (0.0-0.6); Eosinophils % 7.2 %; Hematocrit 33.1 % (37.5-50.1); Hemoglobin 10.8 g/dL (12.9-16.9); Lymphocytes # 0.9 K/mcL (0.6-4.6); Mean Corpuscular HGB Conc 32.6 g/dL (31.6-35.5); Mean Corpuscular Hemoglobin 30.6 pg (28.0-33.3); Mean Corpuscular Volume 93.8 fL (83.0-100.0); Mean Platelet Volume 10.3 fL (9.4-12.4); Monocytes # 0.6 K/mcL (0.0-1.3); Monocytes % 11.8 %; Neutrophils # 3.3 K/mcL (1.6-8.9); Platelet Count 144 K/mcL (140-400); Red Blood Count 3.53 M/mcL (4.19-5.50); Red Cell Distribution Width 14.4 % (11.5-14.5); Segmented Neutrophils % 63.2 %
[2016-11-17 04:48] LABS: Calcium 8.5 mg/dL (8.6-10.8); Potassium 5.8 mEq/L (3.5-4.5)
--- NOTE | 2016-11-17 08:27 | Cardiothoracic Progress Note ---
Date of Encounter: 11/17/16 Time of Encounter: 08:25 - Assessment and plan (1) Pleural effusion Current Visit: Yes Status: Acute The patient is recovering well from his right VATS, pleural biopsy, and pleurodesis. The chest tube output is decreasing. Chest x-ray appearance is improving, though he has a persistent focal rounded opacity in the right lateral lower base. The chest tubes will remained on suction. The assessment and plan as outlined above was discussed with the patient and/or family members who expressed understanding and agreement. All questions were answered. - Subjective Procedure(s) Performed: POD#5 S/P Right VATS with pleural biopsy and pleurodesis. Interval history: The patient is sitting comfortably at his bedside. He is breathing comfortably. He has no complaints. Vital Signs, Last 4 Hours Temp Pulse Resp BP Pulse Ox 11/17/16 07:54 97.9 F 80 16 155/94 98 Oxgyen Flow Rate Oxygen Flow Rate (LPM) 2 Clinical Data, last 8 Hours Output, Chest Tube Drainage 20 Amount [Right Mid-Axillary Chest #2] Output, Chest Tube Drainage 0 Amount [Right Lower Posterior Chest] Output, Urine Amount 0 Weight 11/15/16 11/16/16 11/17/16 23:59 23:59 23:59 Weight 129.5 kg - Physical Examination General: Conversant, No Apparent Distress Neck: No JVD, Normal carotid pulses Cardiac: Reg Rate and Rhythm, Normal S1 and S2, No Murmur Incision: No signs of infection, Dry/intact dressing Chest tubes: Minimal drainage, Other (No air leak.) Lungs: Normal Breath Sounds, No Wheeze, Rales, Rhonchi Neuro: Alert and responsive, No focal deficits noted Vascular: Normal capillary refill Extremities: No Clubbing, No Cyanosis, No Edema, Normal Pulses - Labs 11/17/16 03:51 11/17/16 03:51 Lab Results, Last 24 hours 11/17/16 11/17/16 03:51 03:51 WBC 5.2 Hgb 10.8 L Hct 33.1 L Plt Count 144 Sodium 134 L Potassium 5.8 H Chloride 96 L Carbon Dioxide 27 BUN 36 H Creatinine 6.55 H Glucose 92 Calcium 8.5 L - Imaging Chest Xray: image reviewed (No pneumothorax. Stable focal rounded opacity in the right lateral lower lung base.) - VTE Documentation of Mechanical Device: Intermittent pneumatic compression device Consult Discharge Plan - Plan Referrals: Genoveva Pepper CNP [Partnered Physician] - 11/18/16 10:40 am Constantin March MD [Partnered Physician] - 12/02/16 1:45 pm Lamont Mora DO [Partnered Physician] - 12/02/16 8:35 am
[2016-11-17] MEDS: hydrALAZINE 10 MG TABLET PO SCH ×4 (09:52→20:29)
[2016-11-17] MEDS: Lactulose Oral Soln 20 GM/30 ML UDC PO SCH ×2 (09:52→20:29)
[2016-11-17] MEDS: Metoprolol XL (24 HR) Succ 50 MG TAB.ER.24H PO SCH (09:52)
[2016-11-17] MEDS: Aspirin Enteric Coated 81 MG Tablet PO SCH (09:52)
[2016-11-17] MEDS: Nicotine 7 MG PATCH.TD24 TD SCH (09:52)
[2016-11-17] MEDS: Furosemide 40 MG TABLET PO SCH (09:52)
--- NOTE | 2016-11-17 10:03 | Nephrology Progress Note ---
Date of Encounter: 11/17/16 Time of Encounter: 09:58 - Assessment and Plan (1) ESRD (end stage renal disease) on dialysis Current Visit: Yes Status: Chronic Will continue HD MWF and adjust UF as needed. Provide renal diet. Adjust medication for renal function. Will provide additional renal replacement therapies as needed. (2) Pleural effusion Current Visit: Yes Status: Acute Management per cardiothoracic surgery. Patient s/p VATS, pleural biopsy, and pleurodesis. Patient with a right sided pneumothorax and has chest tubes in place. (3) Anemia in CKD (chronic kidney disease) Current Visit: No Status: Chronic Hemoglobin stable. Transfuse as needed. Monitor for bleeding. Provide KALYANI if patient will have a prolonged hospitalization. (4) Hyperkalemia Current Visit: No Status: Acute kayexalate today. Renal diet. Patient is known to be nonadherant to medical advice. Subjective Principal diagnosis: ESRD, Pleural effusion Interval history: Patient seen. He is sitting up in bed comfortable. Objective - Vital Signs Vital signs: Vital Signs Temp Pulse Resp BP Pulse Ox 11/17/16 07:54 97.9 F 80 16 155/94 98 11/17/16 02:43 98.1 F 78 17 154/98 98 11/16/16 20:02 98.0 F 82 18 142/81 96 11/16/16 16:07 97.9 F 83 16 136/87 97 11/16/16 13:40 97.8 F 14 137/74 11/16/16 13:30 124/70 11/16/16 13:15 132/78 11/16/16 13:00 137/77 11/16/16 12:45 131/72 11/16/16 12:30 128/79 11/16/16 12:15 136/77 11/16/16 12:00 126/65 11/16/16 11:45 128/68 11/16/16 11:30 122/67 11/16/16 11:15 131/69 11/16/16 11:00 120/68 11/16/16 10:45 134/80 11/16/16 10:30 97.8 F 16 137/71 Intake and Output 11/16/16 11/17/16 11/17/16 23:59 07:59 15:59 Intake Total 620 / 620 0 / 0 120 / 120 Output Total 120 / 120 20 / 20 Balance 500 / 500 -20 / -20 120 / 120 Intake: Oral 620 / 620 0 / 0 120 / 120 Output: Urine 0 / 0 Catheter 100 / 100 Chest Tube Drainage 20 Right Lower Posterior 0 / 0 0 / 0 Chest Right Mid-Axillary Chest #2 Other: Meal Dinner Breakfast Percent of Meal Consumed 100% 100% Stool Size Small Stool Consistency soft formed - General Appearance General appearance: Present: well-developed, well-nourished, obese EENT: Present: ATNC Neck: Present: supple Additional Comments: respirations are unlabored Cardiology: Present: regular rate Neurologic: Present: alert and oriented x3 Psychiatric: Present: mood/affect appropriate - Lab 11/17/16 03:51 11/17/16 03:51 Most recent lab results ABG pH 7.36 pH Units (7.32-7.45) 11/13/16 04:25 ABG pCO2 50 mmHg (35-45) H 11/13/16 04:25 ABG pO2 62 mmHg (85-104) L 11/13/16 04:25 ABG HCO3 28.2 mEQ/L (21-27) H 11/13/16 04:25 ABG O2 Saturation 90 % (95-98) L 11/13/16 04:25 Calcium 8.5 mg/dL (8.6-10.8) L 11/17/16 03:51 Phosphorus 8.5 mg/dL (2.3-4.7) H 11/10/16 05:58 Magnesium 1.9 mg/dL (1.6-2.6) 11/13/16 04:40 - VTE Documentation of Mechanical Device: Intermittent pneumatic compression device Consult Discharge Plan - Plan Referrals: Genoveva Pepper CNP [Partnered Physician] - 11/18/16 10:40 am Constantin March MD [Partnered Physician] - 12/02/16 1:45 pm Lamont Mora DO [Partnered Physician] - 12/02/16 8:35 am
--- NOTE | 2016-11-17 13:44 | Internal Med Progress Note ---
Date of Encounter: 11/17/16 Time of Encounter: 10:40 - Assessment and plan (1) Pleural effusion Current Visit: Yes Status: Acute Assessment and plan: Patient is s/p day#5 for right-sided mechanical and chemical pleurodesis per Dr. Thomas. CXR reviewed. Chest tube management per CT surgery. Possible removal of chest tubes tomorrow. Continue pain control with PRN IV Dilaudid and Percocet (2) Status post chest tube placement Current Visit: Yes Status: Acute Assessment and plan: Two chest tubes in place, output decreased. Continue to monitor output. Management as per CTS. (3) ESRD (end stage renal disease) on dialysis Current Visit: No Status: Chronic Assessment and plan: HD as per nephrology. (4) Hyperkalemia Current Visit: Yes Status: Acute Assessment and plan: Kayexalate today. - Subjective Interval history: Patient was seen and examined on rounds. Had 2 bm yesterday. - Constitutional Vitals: Temp Pulse Resp BP Pulse Ox 97.9 F 80 16 155/94 98 11/17/16 07:54 11/17/16 07:54 11/17/16 07:54 11/17/16 07:54 11/17/16 07:54 General appearance: Present: A&O X 3, no acute distress, obese, answers questions appropriately Exam: chest tubes placed. - Head Head exam: Present: atraumatic, normocephalic - Eye Eye exam: Present: PERRL, conjuntiva pink, sclera anicteric Pupils: Present: PERRL - Neck Neck exam general surgery: Present: supple, trachea midline. Absent: lymphadenopathy - Respiratory Respiratory exam: Present: CTAB. Absent: accessory muscle use, rales, rhonchi, wheezes - Cardiovascular Cardiovascular exam: Present: RRR, +S1, +S2. Absent: diastolic murmur, gallop, rubs, systolic murmur - GI/Abdominal GI/Abdominal exam: Present: normal bowel sounds, soft, no peritoneal signs. Absent: distended, tenderness - Extremities Exam Extremities exam: Present: warm, radial pulses palpable and symetrical. Absent : calf tenderness, cyanotic, pedal edema - Neurological Exam Neurological exam: Present: CN II-XII intact, oriented X3, no focal deficits. Absent: pronater drift, facial droop, speech deficit - Skin Skin exam: Present: dry, intact Internal Medicine: Result - Labs CBC & Chem 7: 11/17/16 03:51 11/17/16 03:51 Labs: Short CBC 11/17/16 Range/Units 03:51 WBC 5.2 (4.3-11.1) K/mcL Hgb 10.8 L (12.9-16.9) g/dL Hct 33.1 L (37.5-50.1) % Plt Count 144 (140-400) K/mcL Neutrophils # 3.3 (1.6-8.9) K/mcL BMP 11/17/16 03:51 Sodium 134 L Potassium 5.8 H Chloride 96 L Carbon Dioxide 27 BUN 36 H Creatinine 6.55 H Glucose 92 Calcium 8.5 L - ABG Interpretation ABG results: ABG ABG pH 7.36 pH Units (7.32-7.45) 11/13/16 04:25 ABG pCO2 50 mmHg (35-45) H 11/13/16 04:25 ABG pO2 62 mmHg (85-104) L 11/13/16 04:25 ABG O2 Saturation 90 % (95-98) L 11/13/16 04:25 PT/INR, D-dimer PT 12.8 Seconds (9.4-12.1) H 11/06/16 23:40 - Impressions Impressions Chest X-Ray 11/17/16 04:00 IMPRESSION: 1. Stable positions of right-sided chest tubes, without radiographic evidence of a pneumothorax. 2. Stable focal rounded opacity within the lateral right lung base, with differential considerations including pneumonia, pulmonary contusion, or a pulmonary mass. Clinical correlation is advised. D/ / 11/17/2016 09:23:41 Jeyson Gibbs MD / Nora Daniels Interpreting Provider: Jeyson Gibbs MD - VTE Documentation of Mechanical Device: Intermittent pneumatic compression device Consult Discharge Plan - Plan Referrals: Genoveva Pepper CNP [Partnered Physician] - 11/18/16 10:40 am Constantin March MD [Partnered Physician] - 12/02/16 1:45 pm Lamont Mora DO [Partnered Physician] - 12/02/16 8:35 am
[2016-11-17] MEDS: Amoxicillin 500 MG CAPSULE PO SCH (16:10)
[2016-11-18] MEDS: *HR* HYDROmorphone (PF) 1 MG/ML SYRINGE IVP PRN ×10 (00:42→22:33)
[2016-11-18 06:44] LABS: Basophils % 0.8 %; Eosinophils # 0.4 K/mcL (0.0-0.6); Eosinophils % 6.6 %; Hematocrit 32.8 % (37.5-50.1); Hemoglobin 10.5 g/dL (12.9-16.9); Immature Granulocytes % 0.6 % (0-4); Lymphocytes % 19.2 %; Mean Corpuscular Hemoglobin 30.2 pg (28.0-33.3); Mean Corpuscular Volume 94.3 fL (83.0-100.0); Mean Platelet Volume 10.1 fL (9.4-12.4); Monocytes # 0.6 K/mcL (0.0-1.3); Monocytes % 10.9 %; Neutrophils # 3.3 K/mcL (1.6-8.9); Platelet Count 136 K/mcL (140-400); Red Blood Count 3.48 M/mcL (4.19-5.50); Segmented Neutrophils % 61.9 %
[2016-11-18 07:02] LABS: Calcium 8.7 mg/dL (8.6-10.8); Potassium 6.1 mEq/L (3.5-4.5)
[2016-11-18] MEDS: Nicotine 7 MG PATCH.TD24 TD SCH (07:51)
[2016-11-18] MEDS: Aspirin Enteric Coated 81 MG Tablet PO SCH (07:52)
[2016-11-18] MEDS: Furosemide 40 MG TABLET PO SCH (07:52)
--- NOTE | 2016-11-18 08:02 | Cardiothoracic Progress Note ---
Date of Encounter: 11/18/16 Time of Encounter: 08:00 - Assessment and plan (1) Pleural effusion Current Visit: Yes Status: Acute The patient is recovering well from his right VATS, pleural biopsy, and pleurodesis. The chest tube output is decreasing. Chest x-ray appearance is improving, though he has a persistent focal rounded opacity in the right lateral lower base. The chest tubes were removed. The assessment and plan as outlined above was discussed with the patient and/or family members who expressed understanding and agreement. All questions were answered. - Subjective Procedure(s) Performed: POD#6 S/P Right VATS with pleural biopsy and pleurodesis. Interval history: The patient is sitting comfortably at his bedside. He is breathing comfortably. He has no complaints. Vital Signs, Last 4 Hours Temp Pulse Resp BP Pulse Ox 11/18/16 06:05 98.3 F 89 20 157/89 95 Oxgyen Flow Rate Oxygen Flow Rate (LPM) 2 Clinical Data, last 8 Hours Output, Chest Tube Drainage 10 Amount [Right Mid-Axillary Chest #2] Output, Chest Tube Drainage 0 Amount [Right Lower Posterior Chest] Weight 11/16/16 11/17/16 11/18/16 23:59 23:59 23:59 Weight 129.5 kg 129.8 kg - Physical Examination General: Conversant, No Apparent Distress Neck: No JVD, Normal carotid pulses Cardiac: Reg Rate and Rhythm, Normal S1 and S2, No Murmur Incision: No signs of infection, Dry/intact dressing Chest tubes: Minimal drainage, Other (No air leak.) Lungs: Normal Breath Sounds, No Wheeze, Rales, Rhonchi Neuro: Alert and responsive, No focal deficits noted Vascular: Normal capillary refill Extremities: No Clubbing, No Cyanosis, No Edema, Normal Pulses - Labs 11/18/16 06:26 11/18/16 06:26 Lab Results, Last 24 hours 11/18/16 11/18/16 06:26 06:26 WBC 5.3 Hgb 10.5 L Hct 32.8 L Plt Count 136 L Sodium 133 L Potassium 6.1 H Chloride 94 L Carbon Dioxide 27 BUN 48 H D Creatinine 8.04 H Glucose 90 Calcium 8.7 - Imaging Chest Xray: image reviewed (No pneumothorax. No change in right basilar/lateral fluid collection.) - VTE Documentation of Mechanical Device: Intermittent pneumatic compression device Consult Discharge Plan - Plan Referrals: Genoveva Pepper CNP [Partnered Physician] - 11/18/16 10:40 am Constantin March MD [Partnered Physician] - 12/02/16 1:45 pm Lamont Mora DO [Partnered Physician] - 12/02/16 8:35 am
[2016-11-18] MEDS ORDERED: 0.9 % Sodium Chloride 250 ML IV PRN (08:19)
[2016-11-18] MEDS ORDERED: 0.9 % Sodium Chloride 2,000 ML ONE (10:04)
--- NOTE | 2016-11-18 10:57 | Nephrology Progress Note ---
Date of Encounter: 11/18/16 Time of Encounter: 10:51 - Assessment and Plan (1) ESRD (end stage renal disease) on dialysis Current Visit: Yes Status: Chronic Will continue HD MWF and adjust UF as needed. Provide renal diet. Adjust medication for renal function. Will provide additional renal replacement therapies as needed. (2) Pleural effusion Current Visit: Yes Status: Acute Management per cardiothoracic surgery. Patient s/p VATS, pleural biopsy, and pleurodesis. Chest tubes have been removed. (3) Anemia in CKD (chronic kidney disease) Current Visit: No Status: Chronic Hemoglobin stable. Transfuse as needed. Monitor for bleeding. Provide KALYANI if patient will have a prolonged hospitalization. (4) Hyperkalemia Current Visit: No Status: Acute Renal diet. Patient is known to be nonadherant to medical advice. Dialysis or kayexalate as needed. Subjective Principal diagnosis: ESRD, Pleural effusion Interval history: Patient seen. He on dialysis. Comfortable. His chest tubes have been removed. Objective - Vital Signs Vital signs: Vital Signs Temp Pulse Resp BP Pulse Ox 11/18/16 08:35 98.2 F 81 16 149/93 98 11/18/16 06:05 98.3 F 89 20 157/89 95 11/17/16 22:39 97.0 F L 77 18 166/95 97 11/17/16 16:15 75 16 146/96 96 Intake and Output 11/17/16 11/18/16 11/18/16 23:59 07:59 15:59 Intake Total 0 / 0 240 / 240 120 / 120 Output Total 20 10 / 10 Balance -20 / -20 230 / 230 120 / 120 Intake: Oral 0 / 0 240 / 240 120 / 120 Output: Chest Tube Drainage 10 Right Lower Posterior 0 / 0 0 / 0 Chest Right Mid-Axillary Chest 10 10 #2 Other: Meal Breakfast Percent of Meal Consumed 100% # Voids 0 0 Weight 129.8 kg Patient Weight 11/18/16 23:59 Weight 129.8 kg - General Appearance General appearance: Present: well-developed, well-nourished EENT: Present: ATNC Neck: Present: supple Additional Comments: respirations are unlabored. Cardiology: Present: edema ( 2-3 + edema) Gastrointestinal: Present: obese Integumentary: Present: warm and dry Neurologic: Present: alert and oriented x3 Musculoskeletal: Present: no cyanosis Psychiatric: Present: mood/affect appropriate - Lab 11/18/16 06:26 11/18/16 06:26 Most recent lab results ABG pH 7.36 pH Units (7.32-7.45) 11/13/16 04:25 ABG pCO2 50 mmHg (35-45) H 11/13/16 04:25 ABG pO2 62 mmHg (85-104) L 11/13/16 04:25 ABG HCO3 28.2 mEQ/L (21-27) H 11/13/16 04:25 ABG O2 Saturation 90 % (95-98) L 11/13/16 04:25 Calcium 8.7 mg/dL (8.6-10.8) 11/18/16 06:26 Phosphorus 8.5 mg/dL (2.3-4.7) H 11/10/16 05:58 Magnesium 1.9 mg/dL (1.6-2.6) 11/13/16 04:40 - VTE Documentation of Mechanical Device: Intermittent pneumatic compression device Consult Discharge Plan - Plan Referrals: Genoveva Pepper CNP [Partnered Physician] - 11/22/16 1:25 pm Constantin March MD [Partnered Physician] - 12/02/16 1:45 pm Lamont Mora DO [Partnered Physician] - 12/02/16 8:35 am
[2016-11-18] MEDS: hydrALAZINE 10 MG TABLET PO SCH ×4 (15:09→20:57)
[2016-11-18] MEDS: Amoxicillin 500 MG CAPSULE PO SCH (17:53)
[2016-11-18] MEDS: Metoprolol XL (24 HR) Succ 50 MG TAB.ER.24H PO SCH (17:53)
[2016-11-18] MEDS: Lactulose Oral Soln 20 GM/30 ML UDC PO SCH ×2 (18:02→20:57)
--- NOTE | 2016-11-18 18:43 | Internal Med Progress Note ---
<Ally Harmon Jake - Last Filed: 11/18/16 18:41> Date of Encounter: 11/18/16 Time of Encounter: 14:30 - Assessment and plan (1) Status post chest tube placement Current Visit: Yes Status: Acute Assessment and plan: Continue to monitor wounds to right chest Pain management Management as per CTS. (2) Pleural effusion Current Visit: Yes Status: Acute Assessment and plan: CXR reviewed. Continue pain control with PRN IV Dilaudid and Percocet (3) Acute on chronic systolic heart failure Current Visit: Yes Status: Acute Assessment and plan: Stable with dialysis (4) Hyperkalemia Current Visit: Yes Status: Resolved Assessment and plan: Hemodialysis today Monitor potassium closely Nephrology following (5) ESRD (end stage renal disease) on dialysis Current Visit: Yes Status: Chronic Assessment and plan: Nephrology on board Hemodialysis today (6) Cigarette smoker Current Visit: Yes Status: Chronic Assessment and plan: Discussed smoking cessation Nicotine patch offered (7) Obesity Current Visit: Yes Status: Chronic Qualifiers: Obesity type: due to excess calories Obesity severity: unspecified obesity severity Qualified Code(s): E66.09 - Other obesity due to excess calories (8) DVT prophylaxis Current Visit: No Status: Acute Assessment and plan: Patient has EPCD's ordered We will hold off on pharmacologic prophylaxis given the patient's chest tube and also scheduled dialysis - Time Spent With Patient 25 - 35 minutes (30 minutes including time with patinet and coordinating care) - Subjective Interval history: Patient was seen in the dialysis room while receiving dialysis. He states that his chest wall has pos-operative pain. No other complaints at this time. - Constitutional Vitals: Temp Pulse Resp BP Pulse Ox 98.1 F 97 16 153/94 97 11/18/16 15:51 11/18/16 15:51 11/18/16 15:51 11/18/16 15:51 11/18/16 15:51 General appearance: Present: A&O X 3, no acute distress, obese, answers questions appropriately - Head Head exam: Present: atraumatic, normocephalic - Eye Eye exam: Present: PERRL, conjuntiva pink, sclera anicteric Pupils: Present: PERRL - Neck Neck exam general surgery: Present: supple, trachea midline - Respiratory Respiratory exam: Present: decreased breath sounds (RLL), CTAB. Absent: accessory muscle use, rales, rhonchi, wheezes Additional comments: dressing to right chest wall with serosanguinous drainage - Cardiovascular Cardiovascular exam: Present: RRR, +S1, +S2. Absent: diastolic murmur, gallop, rubs, systolic murmur - GI/Abdominal GI/Abdominal exam: Present: normal bowel sounds, soft, no peritoneal signs. Absent: distended, tenderness - Extremities Exam Extremities exam: Present: pedal edema (chronic 2+ non-pitting edema, unchanged from previous), warm. Absent: calf tenderness, cyanotic - Neurological Exam Neurological exam: Present: CN II-XII intact, oriented X3, no focal deficits. Absent: pronater drift, facial droop, speech deficit - Skin Skin exam: Present: dry, intact Internal Medicine: Result - Labs CBC & Chem 7: 11/18/16 06:26 11/18/16 06:26 Labs: Short CBC 11/18/16 Range/Units 06:26 WBC 5.3 (4.3-11.1) K/mcL Hgb 10.5 L (12.9-16.9) g/dL Hct 32.8 L (37.5-50.1) % Plt Count 136 L (140-400) K/mcL Neutrophils # 3.3 (1.6-8.9) K/mcL BMP 11/18/16 06:26 Sodium 133 L Potassium 6.1 H Chloride 94 L Carbon Dioxide 27 BUN 48 H D Creatinine 8.04 H Glucose 90 Calcium 8.7 - ABG Interpretation ABG results: ABG ABG pH 7.36 pH Units (7.32-7.45) 11/13/16 04:25 ABG pCO2 50 mmHg (35-45) H 11/13/16 04:25 ABG pO2 62 mmHg (85-104) L 11/13/16 04:25 ABG O2 Saturation 90 % (95-98) L 11/13/16 04:25 PT/INR, D-dimer PT 12.8 Seconds (9.4-12.1) H 11/06/16 23:40 - Impressions Impressions Chest X-Ray 11/18/16 06:00 IMPRESSION: 1. Stable chest x-ray with no pneumothorax. 2. No significant change rounded pleural-based density within the right lower lung zone likely representing loculated pleural effusion versus pulmonary contusion. D/ / Anson Alvarez MD / Anosn Alvarez MD Interpreting Provider: Anson Alvarez MD - VTE Documentation of Mechanical Device: Intermittent pneumatic compression device Consult Discharge Plan - Plan Referrals: Genoveva Pepper CNP [Partnered Physician] - 11/22/16 1:25 pm Constantin March MD [Partnered Physician] - 12/02/16 1:45 pm Lamont Mora DO [Partnered Physician] - 12/02/16 8:35 am - Attending Attestation I examined this patient and my medical decision-making was reviewed with the SOCIAL SERVICES DIRECTOR/PA/Advanced Practice Nurse/Resident Physician. I agree with the documented findings, disposition and treatment plan as described except to the extent set forth below. <Vicente Mayfield - Last Filed: 11/18/16 18:53> - Assessment and plan (1) Pleural effusion Current Visit: Yes Status: Acute (2) Status post chest tube placement Current Visit: Yes Status: Acute (3) ESRD (end stage renal disease) on dialysis Current Visit: No Status: Chronic (4) Hyperkalemia Current Visit: Yes Status: Acute - Constitutional Vitals: Temp Pulse Resp BP Pulse Ox 98.1 F 97 16 153/94 97 11/18/16 15:51 11/18/16 15:51 11/18/16 15:51 11/18/16 15:51 11/18/16 15:51 Internal Medicine: Result - Labs CBC & Chem 7: 11/18/16 06:26 11/18/16 06:26 Labs: Short CBC 11/18/16 Range/Units 06:26 WBC 5.3 (4.3-11.1) K/mcL Hgb 10.5 L (12.9-16.9) g/dL Hct 32.8 L (37.5-50.1) % Plt Count 136 L (140-400) K/mcL Neutrophils # 3.3 (1.6-8.9) K/mcL BMP 11/18/16 06:26 Sodium 133 L Potassium 6.1 H Chloride 94 L Carbon Dioxide 27 BUN 48 H D Creatinine 8.04 H Glucose 90 Calcium 8.7 - ABG Interpretation ABG results: ABG ABG pH 7.36 pH Units (7.32-7.45) 11/13/16 04:25 ABG pCO2 50 mmHg (35-45) H 11/13/16 04:25 ABG pO2 62 mmHg (85-104) L 11/13/16 04:25 ABG O2 Saturation 90 % (95-98) L 11/13/16 04:25 PT/INR, D-dimer PT 12.8 Seconds (9.4-12.1) H 11/06/16 23:40 - Impressions Impressions Chest X-Ray 11/18/16 06:00 IMPRESSION: 1. Stable chest x-ray with no pneumothorax. 2. No significant change rounded pleural-based density within the right lower lung zone likely representing loculated pleural effusion versus pulmonary contusion. D/ / Anson Alvarez MD / Anson Alvarez MD Interpreting Provider: Anson Alvarez MD - Attending Attestation I examined this patient and my medical decision-making was reviewed with the SOCIAL SERVICES DIRECTOR/PA/Advanced Practice Nurse/Resident Physician. I agree with the documented findings, disposition and treatment plan as described except to the extent set forth below. . ESRD on dialysis, severe systolic dysfunction. Recurrent pleural effusions status post VATS, pleural biopsy and pleurodesis, chest tube insertion. Both chest tubes were removed today by cardiothoracic surgery. We will obtain chest x-ray tomorrow. Possible discharge in a.m. HD as per nephrology.
[2016-11-19] MEDS: *HR* HYDROmorphone (PF) 1 MG/ML SYRINGE IVP PRN ×6 (00:41→17:54)
[2016-11-19 07:02] LABS: Basophils # 0.1 K/mcL (0.0-0.2); Basophils % 0.9 %; Eosinophils # 0.4 K/mcL (0.0-0.6); Eosinophils % 7.4 %; Hematocrit 34.9 % (37.5-50.1); Hemoglobin 10.9 g/dL (12.9-16.9); Immature Granulocytes % 0.4 % (0-4); Lymphocytes # 0.8 K/mcL (0.6-4.6); Lymphocytes % 14.8 %; Mean Corpuscular HGB Conc 31.2 g/dL (31.6-35.5); Mean Corpuscular Hemoglobin 29.6 pg (28.0-33.3); Mean Corpuscular Volume 94.8 fL (83.0-100.0); Mean Platelet Volume 10.5 fL (9.4-12.4); Monocytes # 0.7 K/mcL (0.0-1.3); Monocytes % 12.5 %; Neutrophils # 3.5 K/mcL (1.6-8.9); Platelet Count 153 K/mcL (140-400); Red Blood Count 3.68 M/mcL (4.19-5.50)
[2016-11-19 07:17] LABS: Calcium 8.9 mg/dL (8.6-10.8); Potassium 5.8 mEq/L (3.5-4.5)
[2016-11-19] MEDS: hydrALAZINE 10 MG TABLET PO SCH ×4 (08:51→21:33)
[2016-11-19] MEDS: Lactulose Oral Soln 20 GM/30 ML UDC PO SCH ×2 (08:51→21:33)
[2016-11-19] MEDS: Aspirin Enteric Coated 81 MG Tablet PO SCH (08:51)
[2016-11-19] MEDS: Furosemide 40 MG TABLET PO SCH (08:52)
[2016-11-19] MEDS: Nicotine 7 MG PATCH.TD24 TD SCH (08:52)
[2016-11-19] MEDS: Metoprolol XL (24 HR) Succ 50 MG TAB.ER.24H PO SCH (08:52)
--- NOTE | 2016-11-19 09:46 | Cardiothoracic Progress Note ---
Date of Encounter: 11/19/16 Time of Encounter: 09:44 - Assessment and plan (1) Pleural effusion Current Visit: Yes Status: Acute The patient is recovering well from his right VATS, pleural biopsy, and pleurodesis. Chest x-ray appearance is improving, though he has a persistent focal rounded opacity in the right lateral lower base. I will sign off the patient's case today. Patient should see Dr. Silvio Thomas in the office in 4- 6 weeks with a previsit chest x-ray. The assessment and plan as outlined above was discussed with the patient and/or family members who expressed understanding and agreement. All questions were answered. - Subjective Procedure(s) Performed: POD#7 S/P Right VATS with pleural biopsy and pleurodesis. Interval history: The patient is sitting comfortably at his bedside. He is breathing comfortably. He has no complaints. Vital Signs, Last 4 Hours Temp Pulse Resp BP Pulse Ox 11/19/16 08:42 97.8 F 53 16 167/105 96 Oxgyen Flow Rate Oxygen Flow Rate (LPM) 0 Weight 11/17/16 11/18/16 11/19/16 23:59 23:59 23:59 Weight 129.8 kg 139.6 kg - Physical Examination General: Conversant, No Apparent Distress Neck: No JVD, Normal carotid pulses Cardiac: Reg Rate and Rhythm, Normal S1 and S2, No Murmur Incision: No signs of infection, Dry/intact dressing Lungs: Normal Breath Sounds, No Wheeze, Rales, Rhonchi Neuro: Alert and responsive, No focal deficits noted Vascular: Normal capillary refill Extremities: No Clubbing, No Cyanosis, No Edema, Normal Pulses - Labs 11/19/16 06:03 11/19/16 06:03 Lab Results, Last 24 hours 11/19/16 11/19/16 06:03 06:03 WBC 5.5 Hgb 10.9 L Hct 34.9 L Plt Count 153 Sodium 135 L Potassium 5.8 H Chloride 96 L Carbon Dioxide 25 BUN 38 H D Creatinine 6.77 H Glucose 90 Calcium 8.9 - Imaging Chest Xray: image reviewed (No pneumothorax. No change and right basilar/ lateral fluid collection.) - VTE Documentation of Mechanical Device: Intermittent pneumatic compression device Consult Discharge Plan - Plan Referrals: Genoveva Pepper CNP [Partnered Physician] - 11/22/16 1:25 pm Constantin March MD [Partnered Physician] - 12/02/16 1:45 pm Lamont Mora DO [Partnered Physician] - 12/02/16 8:35 am
--- NOTE | 2016-11-19 10:02 | Nephrology Progress Note ---
Date of Encounter: 11/19/16 Time of Encounter: 10:00 - Assessment and Plan (1) Hyperkalemia Current Visit: Yes Status: Resolved Kayexulate 30gm p.o. x 1 Continue renal diet (2) ESRD (end stage renal disease) on dialysis Current Visit: Yes Status: Chronic Plan for HD tomorrow Continue renal diet and fluid restriction Avoid nephrotoxins if possible (3) Noncompliance with medication regimen Current Visit: No Status: Acute Patient very non-compliant with HD treatments, diet and meds. Subjective Principal diagnosis: ESRD, Pleural effusion Interval history: Patient seen and examined. Denies any N/V/D Objective - Vital Signs Vital signs: Vital Signs Temp Pulse Resp BP Pulse Ox 11/19/16 08:42 97.8 F 53 16 167/105 96 11/19/16 03:55 73 18 154/98 11/18/16 20:35 96 11/18/16 20:00 98 F 80 15 151/107 11/18/16 15:51 98.1 F 97 16 153/94 97 11/18/16 14:15 98.2 F 16 152/88 11/18/16 14:10 137/76 11/18/16 14:00 136/78 11/18/16 13:45 141/87 11/18/16 13:30 118/89 11/18/16 13:15 133/82 11/18/16 13:00 104/54 11/18/16 12:45 135/75 11/18/16 12:30 127/73 11/18/16 12:15 137/74 11/18/16 12:00 134/71 11/18/16 11:45 137/76 11/18/16 11:30 157/78 11/18/16 11:15 133/77 11/18/16 11:00 140/81 11/18/16 10:45 143/88 11/18/16 10:30 98.2 F 16 143/93 Intake and Output 11/18/16 11/19/16 11/19/16 23:59 07:59 15:59 Intake Total 0 / 0 0 / 0 360 / 360 Output Total 0 / 0 Balance 0 / 0 0 / 0 360 / 360 Intake: Oral 0 / 0 0 / 0 360 / 360 Output: Catheter 0 / 0 Other: Meal Breakfast Percent of Meal Consumed 100% # Voids 1 Weight 139.6 kg Patient Weight 11/19/16 23:59 Weight 139.6 kg - General Appearance General appearance: Present: well-developed, well-nourished, obese EENT: Present: ATNC, mucous membranes moist, hearing intact, vision intact Neck: Present: supple Respiratory: Present: clear Cardiology: Present: edema, normal S1, normal S2 Gastrointestinal: Present: no tenderness, no guarding Integumentary: Present: warm and dry Neurologic: Present: alert and oriented x3 Musculoskeletal: Present: no deformities Psychiatric: Present: mood/affect appropriate, cooperative - Lab 11/19/16 06:03 11/19/16 06:03 Most recent lab results ABG pH 7.36 pH Units (7.32-7.45) 11/13/16 04:25 ABG pCO2 50 mmHg (35-45) H 11/13/16 04:25 ABG pO2 62 mmHg (85-104) L 11/13/16 04:25 ABG HCO3 28.2 mEQ/L (21-27) H 11/13/16 04:25 ABG O2 Saturation 90 % (95-98) L 11/13/16 04:25 Calcium 8.9 mg/dL (8.6-10.8) 11/19/16 06:03 Phosphorus 8.5 mg/dL (2.3-4.7) H 11/10/16 05:58 Magnesium 1.9 mg/dL (1.6-2.6) 11/13/16 04:40 - VTE Documentation of Mechanical Device: Intermittent pneumatic compression device Consult Discharge Plan - Plan Referrals: Genoveva Pepper CNP [Partnered Physician] - 11/22/16 1:25 pm Constantin March MD [Partnered Physician] - 12/02/16 1:45 pm Lamont Mora DO [Partnered Physician] - 12/02/16 8:35 am
[2016-11-19] MEDS: *HR* HYDROcodone/Acet 5/325 mg TABLET PO PRN (13:50)
--- NOTE | 2016-11-19 15:26 | Internal Med Progress Note ---
Date of Encounter: 11/19/16 Time of Encounter: 10:00 - Assessment and plan (1) Recurrent pleural effusion on right Current Visit: No Status: Chronic Assessment and plan: Pt had Decortication. Cardiothoracic surgeon on case. Patient is at high risk because he has problem needs surgical intervention, and also he is on iv opioid need close monitoring (2) Dyspnea Current Visit: Yes Status: Acute Assessment and plan: Has improved after procedure. Oxygen saturation 95% in room air, RR 16. Qualifiers: Dyspnea type: unspecified Qualified Code(s): R06.00 - Dyspnea, unspecified (3) CHF (congestive heart failure) Current Visit: No Status: Chronic Assessment and plan: Stable, continue home medications Qualifiers: Congestive heart failure type: combined Congestive heart failure chronicity : chronic Qualified Code(s): I50.42 - Chronic combined systolic (congestive) and diastolic (congestive) heart failure (4) COPD (chronic obstructive pulmonary disease) Current Visit: No Status: Chronic Assessment and plan: Stable, no signs of exacerbation. Continue home medication Qualifiers: COPD type: unspecified COPD Qualified Code(s): J44.9 - Chronic obstructive pulmonary disease, unspecified (5) ESRD (end stage renal disease) on dialysis Current Visit: No Status: Chronic Assessment and plan: HD as per nephrology. (6) Hypertension Current Visit: No Status: Chronic Qualifiers: Hypertension type: secondary to other renal disorders Qualified Code(s): I15.1 - Hypertension secondary to other renal disorders; N28.89 - Other specified disorders of kidney and ureter (7) DVT prophylaxis Current Visit: No Status: Acute Assessment and plan: Heparin subcutaneously - Time Spent With Patient 25 - 35 minutes - Subjective Interval history: Patient is a 31-year-old male admitted for pleural effusion. His past medical history is significant for CHF, end-stage renal disease on hemodialysis. Patient was seen and examined today. He still complaining of pain and need high level pain medications. His chest tube has been removed with a by surgery. Vital signs stable, no fever. Will try to taper down the pain medication and discharge patient soon. - Constitutional Vitals: Temp Pulse Resp BP Pulse Ox 98.2 F 76 16 159/91 95 11/19/16 11:11 11/19/16 11:11 11/19/16 11:11 11/19/16 11:11 11/19/16 11:11 General appearance: Present: A&O X 3, no acute distress, obese, answers questions appropriately - Head Head exam: Present: atraumatic, normocephalic - Eye Eye exam: Present: PERRL, conjuntiva pink, sclera anicteric Pupils: Present: PERRL - Neck Neck exam general surgery: Present: supple, trachea midline. Absent: lymphadenopathy - Respiratory Respiratory exam: Present: CTAB. Absent: accessory muscle use, rales, rhonchi, wheezes - Cardiovascular Cardiovascular exam: Present: RRR, +S1, +S2. Absent: diastolic murmur, gallop, rubs, systolic murmur - GI/Abdominal GI/Abdominal exam: Present: normal bowel sounds, soft, no peritoneal signs. Absent: distended, tenderness - Extremities Exam Extremities exam: Present: warm, radial pulses palpable and symetrical. Absent : calf tenderness, cyanotic, pedal edema - Neurological Exam Neurological exam: Present: CN II-XII intact, oriented X3, no focal deficits. Absent: pronater drift, facial droop, speech deficit - Skin Skin exam: Present: dry, intact Internal Medicine: Result - Labs CBC & Chem 7: 11/19/16 06:03 11/19/16 06:03 Labs: Short CBC 11/19/16 Range/Units 06:03 WBC 5.5 (4.3-11.1) K/mcL Hgb 10.9 L (12.9-16.9) g/dL Hct 34.9 L (37.5-50.1) % Plt Count 153 (140-400) K/mcL Neutrophils # 3.5 (1.6-8.9) K/mcL BMP 11/19/16 06:03 Sodium 135 L Potassium 5.8 H Chloride 96 L Carbon Dioxide 25 BUN 38 H D Creatinine 6.77 H Glucose 90 Calcium 8.9 - ABG Interpretation ABG results: ABG ABG pH 7.36 pH Units (7.32-7.45) 11/13/16 04:25 ABG pCO2 50 mmHg (35-45) H 11/13/16 04:25 ABG pO2 62 mmHg (85-104) L 11/13/16 04:25 ABG O2 Saturation 90 % (95-98) L 11/13/16 04:25 PT/INR, D-dimer PT 12.8 Seconds (9.4-12.1) H 11/06/16 23:40 - Impressions Impressions Chest X-Ray 11/19/16 06:00 IMPRESSION: Stable chest with right basilar rounded opacity possibly related to rounded atelectasis given the history of previous chest tubes on the right side. Continued radiographic follow-up is recommended. D/ / Louie Orellana MD / Louie Orellana MD Interpreting Provider: Louie Orellana MD - VTE Documentation of Mechanical Device: Intermittent pneumatic compression device Consult Discharge Plan - Plan Referrals: Genoveva Pepper CNP [Partnered Physician] - 11/22/16 1:25 pm Constantin March MD [Partnered Physician] - 12/02/16 1:45 pm Lamont Mora DO [Partnered Physician] - 12/02/16 8:35 am
[2016-11-19] MEDS: *HR* Heparin 5,000 UNIT/ML VIAL SQ SCH (18:01)
[2016-11-19] MEDS: *HR* OxyCODONE/APAP 5/325 TABLET PO PRN (21:33)
[2016-11-20] MEDS: *HR* HYDROmorphone (PF) 1 MG/ML SYRINGE IVP PRN ×2 (00:11→06:28)
[2016-11-20] MEDS: *HR* OxyCODONE/APAP 5/325 TABLET PO PRN ×3 (04:09→18:24)
[2016-11-20 05:22] LABS: Basophils # 0.1 K/mcL (0.0-0.2); Basophils % 0.8 %; Eosinophils # 0.3 K/mcL (0.0-0.6); Eosinophils % 5.6 %; Hematocrit 36.4 % (37.5-50.1); Hemoglobin 11.8 g/dL (12.9-16.9); Immature Granulocytes % 0.2 % (0-4); Lymphocytes # 0.8 K/mcL (0.6-4.6); Lymphocytes % 13.8 %; Mean Corpuscular HGB Conc 32.4 g/dL (31.6-35.5); Mean Corpuscular Hemoglobin 30.9 pg (28.0-33.3); Mean Corpuscular Volume 95.3 fL (83.0-100.0); Mean Platelet Volume 11.3 fL (9.4-12.4); Monocytes # 0.7 K/mcL (0.0-1.3); Monocytes % 11.4 %; Neutrophils # 4.1 K/mcL (1.6-8.9); Platelet Count 141 K/mcL (140-400); Red Blood Count 3.82 M/mcL (4.19-5.50); Red Cell Distribution Width 13.9 % (11.5-14.5); Segmented Neutrophils % 68.2 %
[2016-11-20 05:38] LABS: Potassium 5.5 mEq/L (3.5-4.5)
[2016-11-20] MEDS: *HR* Heparin 5,000 UNIT/ML VIAL SQ SCH ×2 (06:29→18:25)
[2016-11-20] MEDS: Aspirin Enteric Coated 81 MG Tablet PO SCH (06:30)
[2016-11-20] MEDS: Lactulose Oral Soln 20 GM/30 ML UDC PO SCH ×3 (06:30→22:05)
[2016-11-20] MEDS ORDERED: 0.9 % Sodium Chloride 1,000 ML PRIME SCH (09:00)
[2016-11-20] MEDS ORDERED: NIFEdipine XL (24 HR) 30 MG TAB.ER.24 PO SCH (09:00)
[2016-11-20] MEDS ORDERED: 0.9 % Sodium Chloride 250 ML IV PRN (09:00)
[2016-11-20] MEDS ORDERED: 0.9 % Sodium Chloride 2,000 ML ONE (09:14)
--- NOTE | 2016-11-20 09:31 | Nephrology Progress Note ---
Date of Encounter: 11/20/16 Time of Encounter: 09:27 - Assessment and Plan (1) Hyperkalemia Current Visit: Yes Status: Resolved (2) ESRD (end stage renal disease) on dialysis Current Visit: Yes Status: Chronic Plan for HD today; will pull off as much fluid as tolerated Continue renal diet and fluid restriction--patient eating a lot of ice; keep fluid restriction to 1.5 liters/day Avoid nephrotoxins if possible (3) Noncompliance with medication regimen Current Visit: No Status: Acute Patient very non-compliant with HD treatments, diet and meds. (4) Accelerated hypertension Current Visit: No Status: Acute ? accurate b/p. Spoke with nurse and asked for b/p to be taken with a large size cuff. Also patient getting a lot of pain meds--advised decreasing pain meds and making sure patient gets out of bed frequently throughout day. Subjective Principal diagnosis: ESRD, Pleural effusion Interval history: Patient seen and examined. Lying in bed sleeping off and on. Objective - Vital Signs Vital signs: Vital Signs Temp Pulse Resp BP Pulse Ox 11/20/16 09:00 98 11/20/16 07:23 97.9 F 73 15 173/111 98 11/20/16 04:15 98.2 F 82 18 170/110 98 11/19/16 21:33 97 11/19/16 19:55 98.8 F 75 18 146/94 97 11/19/16 15:33 98 F 82 16 151/89 95 11/19/16 11:11 98.2 F 76 16 159/91 95 Intake and Output 11/19/16 11/20/16 11/20/16 23:59 07:59 15:59 Intake Total 240 / 240 400 / 400 Output Total 100 / 100 Balance 240 / 240 300 / 300 Intake: Oral 240 / 240 400 / 400 Output: Catheter 100 / 100 Other: Meal Dinner Percent of Meal Consumed 90% # Voids 0 Weight 114.5 kg Patient Weight 11/20/16 23:59 Weight 114.5 kg - General Appearance General appearance: Present: obese EENT: Present: ATNC, mucous membranes moist, hearing intact, vision intact Neck: Present: supple Respiratory: Present: clear Cardiology: Present: edema, normal S1, normal S2 Dialysis Vascular Access: Arteriovenous Fistula Gastrointestinal: Present: no tenderness, no guarding Integumentary: Present: warm and dry Neurologic: Present: alert and oriented x3 Psychiatric: Present: mood/affect appropriate, cooperative - Lab 11/20/16 04:18 11/20/16 04:18 Most recent lab results ABG pH 7.36 pH Units (7.32-7.45) 11/13/16 04:25 ABG pCO2 50 mmHg (35-45) H 11/13/16 04:25 ABG pO2 62 mmHg (85-104) L 11/13/16 04:25 ABG HCO3 28.2 mEQ/L (21-27) H 11/13/16 04:25 ABG O2 Saturation 90 % (95-98) L 11/13/16 04:25 Calcium 9.0 mg/dL (8.6-10.8) 11/20/16 04:18 Phosphorus 8.5 mg/dL (2.3-4.7) H 11/10/16 05:58 Magnesium 1.9 mg/dL (1.6-2.6) 11/13/16 04:40 - VTE Documentation of Mechanical Device: Intermittent pneumatic compression device Consult Discharge Plan - Plan Referrals: Genoveva Pepper CNP [Partnered Physician] - 11/22/16 1:25 pm Constantin March MD [Partnered Physician] - 12/02/16 1:45 pm Lamont Mora DO [Partnered Physician] - 12/02/16 8:35 am
--- NOTE | 2016-11-20 16:38 | Internal Med Progress Note ---
Date of Encounter: 11/20/16 Time of Encounter: 15:00 - Assessment and plan (1) Recurrent pleural effusion on right Current Visit: No Status: Chronic Assessment and plan: Pt had Decortication. Cardiothoracic surgeon on case. Patient is at high risk because he has problem needs surgical intervention (2) Dyspnea Current Visit: Yes Status: Acute Assessment and plan: Has improved after procedure. Oxygen saturation 95% in room air, RR 16. Qualifiers: Dyspnea type: unspecified Qualified Code(s): R06.00 - Dyspnea, unspecified (3) CHF (congestive heart failure) Current Visit: No Status: Chronic Assessment and plan: Stable, continue home medications. Add losartan today Qualifiers: Congestive heart failure type: combined Congestive heart failure chronicity : chronic Qualified Code(s): I50.42 - Chronic combined systolic (congestive) and diastolic (congestive) heart failure (4) COPD (chronic obstructive pulmonary disease) Current Visit: No Status: Chronic Assessment and plan: Stable, no signs of exacerbation. Continue home medication Qualifiers: COPD type: unspecified COPD Qualified Code(s): J44.9 - Chronic obstructive pulmonary disease, unspecified (5) ESRD (end stage renal disease) on dialysis Current Visit: No Status: Chronic Assessment and plan: HD as per nephrology. (6) Hypertension Current Visit: No Status: Chronic Assessment and plan: BP is a high. Add losartan today. Qualifiers: Hypertension type: essential hypertension Qualified Code(s): I10 - Essential (primary) hypertension (7) DVT prophylaxis Current Visit: No Status: Acute Assessment and plan: Heparin subcutaneously - Time Spent With Patient Greater than 35 minutes - Subjective Interval history: Patient is a 31-year-old male admitted for pleural effusion. His past medical history is significant for CHF, end-stage renal disease on hemodialysis. Patient was seen and examined today. He still complaining of pain and need high level pain medications. His chest tube has been removed with a by surgery. Vital signs stable, no fever. Will try to taper down the pain medication and discharge patient soon. - Constitutional Vitals: Temp Pulse Resp BP Pulse Ox 97.9 F 738 15 155/87 97 11/20/16 16:21 11/20/16 15:43 11/20/16 15:43 11/20/16 15:43 11/20/16 15:43 General appearance: Present: A&O X 3, no acute distress, obese, answers questions appropriately - Head Head exam: Present: atraumatic, normocephalic - Eye Eye exam: Present: PERRL, conjuntiva pink, sclera anicteric Pupils: Present: PERRL - Neck Neck exam general surgery: Present: supple, trachea midline. Absent: lymphadenopathy - Respiratory Respiratory exam: Present: CTAB. Absent: accessory muscle use, rales, rhonchi, wheezes - Cardiovascular Cardiovascular exam: Present: RRR, +S1, +S2. Absent: diastolic murmur, gallop, rubs, systolic murmur - GI/Abdominal GI/Abdominal exam: Present: normal bowel sounds, soft, no peritoneal signs. Absent: distended, tenderness - Extremities Exam Extremities exam: Present: warm, radial pulses palpable and symetrical. Absent : calf tenderness, cyanotic, pedal edema - Neurological Exam Neurological exam: Present: CN II-XII intact, oriented X3, no focal deficits. Absent: pronater drift, facial droop, speech deficit - Skin Skin exam: Present: dry, intact Internal Medicine: Result - Labs CBC & Chem 7: 11/20/16 04:18 11/20/16 04:18 Labs: Short CBC 11/20/16 Range/Units 04:18 WBC 5.9 (4.3-11.1) K/mcL Hgb 11.8 L (12.9-16.9) g/dL Hct 36.4 L (37.5-50.1) % Plt Count 141 (140-400) K/mcL Neutrophils # 4.1 (1.6-8.9) K/mcL BMP 11/20/16 04:18 Sodium 133 L Potassium 5.5 H Chloride 94 L Carbon Dioxide 22 BUN 49 H D Creatinine 7.88 H Glucose 76 Calcium 9.0 - ABG Interpretation ABG results: ABG ABG pH 7.36 pH Units (7.32-7.45) 11/13/16 04:25 ABG pCO2 50 mmHg (35-45) H 11/13/16 04:25 ABG pO2 62 mmHg (85-104) L 11/13/16 04:25 ABG O2 Saturation 90 % (95-98) L 11/13/16 04:25 PT/INR, D-dimer PT 12.8 Seconds (9.4-12.1) H 11/06/16 23:40 - VTE Documentation of Mechanical Device: Intermittent pneumatic compression device Consult Discharge Plan - Plan Referrals: Genoveva Pepper CNP [Partnered Physician] - 11/22/16 1:25 pm Constantin March MD [Partnered Physician] - 12/02/16 1:45 pm Lamont Mora DO [Partnered Physician] - 12/02/16 8:35 am
[2016-11-20] MEDS: hydrALAZINE 10 MG TABLET PO SCH ×3 (18:17→22:05)
[2016-11-20] MEDS: Furosemide 40 MG TABLET PO SCH (18:24)
[2016-11-20] MEDS: Nicotine 7 MG PATCH.TD24 TD SCH (18:24)
[2016-11-20] MEDS: Metoprolol XL (24 HR) Succ 50 MG TAB.ER.24H PO SCH (18:24)
[2016-11-20] MEDS: *HR* HYDROcodone/Acet 5/325 mg TABLET PO PRN (22:05)
[2016-11-21] MEDS: *HR* OxyCODONE/APAP 5/325 TABLET PO PRN ×2 (01:35→08:00)
[2016-11-21] MEDS: *HR* HYDROcodone/Acet 5/325 mg TABLET PO PRN (05:53)
[2016-11-21] MEDS: *HR* Heparin 5,000 UNIT/ML VIAL SQ SCH (05:54)
[2016-11-21 06:49] LABS: Basophils # 0.1 K/mcL (0.0-0.2); Eosinophils # 0.3 K/mcL (0.0-0.6); Eosinophils % 6.4 %; Hematocrit 33.1 % (37.5-50.1); Hemoglobin 10.5 g/dL (12.9-16.9); Immature Granulocytes % 0.2 % (0-4); Lymphocytes # 0.9 K/mcL (0.6-4.6); Lymphocytes % 18.2 %; Mean Corpuscular HGB Conc 31.7 g/dL (31.6-35.5); Mean Corpuscular Hemoglobin 30.3 pg (28.0-33.3); Mean Corpuscular Volume 95.4 fL (83.0-100.0); Mean Platelet Volume 10.5 fL (9.4-12.4); Monocytes # 0.6 K/mcL (0.0-1.3); Neutrophils # 3.1 K/mcL (1.6-8.9); Platelet Count 184 K/mcL (140-400); Red Blood Count 3.47 M/mcL (4.19-5.50); Segmented Neutrophils % 62.2 %
[2016-11-21 07:04] LABS: Calcium 8.8 mg/dL (8.6-10.8); Potassium 5.5 mEq/L (3.5-4.5)
[2016-11-21] MEDS: Aspirin Enteric Coated 81 MG Tablet PO SCH (08:00)
[2016-11-21] MEDS: Furosemide 40 MG TABLET PO SCH (08:00)
[2016-11-21] MEDS: Metoprolol XL (24 HR) Succ 50 MG TAB.ER.24H PO SCH (08:01)
[2016-11-21] MEDS: hydrALAZINE 10 MG TABLET PO SCH (08:01)
[2016-11-21] MEDS: Lactulose Oral Soln 20 GM/30 ML UDC PO SCH (08:02)
[2016-11-21] MEDS: Nicotine 7 MG PATCH.TD24 TD SCH (08:02)
--- NOTE | 2016-11-21 09:33 | Nephrology Progress Note ---
Date of Encounter: 11/21/16 Time of Encounter: 09:33 - Assessment and Plan (1) Hyperkalemia Current Visit: Yes Status: Resolved Kayexulate 30gm p.o. x 1 Continue renal diet (2) ESRD (end stage renal disease) on dialysis Current Visit: Yes Status: Chronic Plan for HD tomorrow Continue renal diet and fluid restriction Avoid nephrotoxins if possible (3) Noncompliance with medication regimen Current Visit: No Status: Acute Patient very non-compliant with HD treatments, diet and meds. (4) Accelerated hypertension Current Visit: No Status: Acute Losartan 25mg daily started by primary team--please monitor b/p closely as patient does not normally run this high Subjective Principal diagnosis: ESRD, Pleural effusion Interval history: Patient seen and examined. Patient much more alert and interactive today. Sits up easily in bed. Objective - Vital Signs Vital signs: Vital Signs Temp Pulse Resp BP Pulse Ox 11/21/16 08:08 97 11/21/16 07:00 98.3 F 74 15 169/95 97 11/21/16 05:22 97.9 F 73 17 152/91 98 11/21/16 00:02 98.4 F 74 13 153/99 97 11/20/16 22:14 96 11/20/16 18:35 97.9 F 74 18 156/91 96 11/20/16 16:21 97.9 F 11/20/16 15:43 97.9 F 738 15 155/87 97 11/20/16 14:15 97.9 F 16 144/81 11/20/16 14:05 140/84 11/20/16 13:50 142/91 11/20/16 13:35 144/86 11/20/16 13:20 132/76 11/20/16 13:05 131/77 11/20/16 12:50 146/83 11/20/16 12:35 144/87 11/20/16 12:20 146/90 11/20/16 12:05 145/84 11/20/16 11:50 142/81 11/20/16 11:35 149/83 11/20/16 11:20 147/92 11/20/16 11:05 146/83 11/20/16 10:50 147/92 11/20/16 10:35 152/97 11/20/16 10:20 157/99 11/20/16 10:05 97.9 F 16 158/96 Intake and Output 11/20/16 11/21/16 11/21/16 23:59 07:59 15:59 Other: Weight 138.3 kg Patient Weight 11/21/16 23:59 Weight 138.3 kg - General Appearance General appearance: Present: well-developed, well-nourished, obese EENT: Present: ATNC, mucous membranes moist, hearing intact, vision intact Neck: Present: supple Respiratory: Present: clear Cardiology: Present: edema (BLL much improved from yesterday) Dialysis Vascular Access: Arteriovenous Fistula Gastrointestinal: Present: no tenderness, no guarding, obese Integumentary: Present: warm and dry Neurologic: Present: alert and oriented x3 Psychiatric: Present: mood/affect appropriate, cooperative - Lab 11/21/16 05:40 11/21/16 05:40 Most recent lab results ABG pH 7.36 pH Units (7.32-7.45) 11/13/16 04:25 ABG pCO2 50 mmHg (35-45) H 11/13/16 04:25 ABG pO2 62 mmHg (85-104) L 11/13/16 04:25 ABG HCO3 28.2 mEQ/L (21-27) H 11/13/16 04:25 ABG O2 Saturation 90 % (95-98) L 11/13/16 04:25 Calcium 8.8 mg/dL (8.6-10.8) 11/21/16 05:40 Phosphorus 8.5 mg/dL (2.3-4.7) H 11/10/16 05:58 Magnesium 1.9 mg/dL (1.6-2.6) 11/13/16 04:40 - VTE Documentation of Mechanical Device: Intermittent pneumatic compression device Consult Discharge Plan - Plan Referrals: Genoveva Pepper CNP [Partnered Physician] - 11/22/16 1:25 pm Constantin March MD [Partnered Physician] - 12/02/16 1:45 pm Lamont Mora DO [Partnered Physician] - 12/02/16 8:35 am
--- NOTE | 2016-11-21 13:31 | Discharge Summary ---
Date of Encounter: 11/21/16 Time of Encounter: 12:00 - Discharge Diagnosis (1) Recurrent pleural effusion on right Priority: Primary Status: Chronic (2) Dyspnea Priority: Primary Status: Acute Qualifiers: Dyspnea type: unspecified Qualified Code(s): R06.00 - Dyspnea, unspecified (3) CHF (congestive heart failure) Priority: Secondary Status: Chronic Qualifiers: Congestive heart failure type: combined Congestive heart failure chronicity : chronic Qualified Code(s): I50.42 - Chronic combined systolic (congestive) and diastolic (congestive) heart failure (4) COPD (chronic obstructive pulmonary disease) Priority: Secondary Status: Chronic Qualifiers: COPD type: unspecified COPD Qualified Code(s): J44.9 - Chronic obstructive pulmonary disease, unspecified (5) ESRD (end stage renal disease) on dialysis Priority: Secondary Status: Chronic (6) Hypertension Priority: Secondary Status: Chronic Qualifiers: Hypertension type: essential hypertension Qualified Code(s): I10 - Essential (primary) hypertension (7) DVT prophylaxis Priority: Secondary Status: Acute - Discharge Medications Prescriptions: Acetaminophen [Tylenol] 650 mg PO Q6HR PRN #30 tablet PRN Reason: Mild Pain (1-3) Losartan [Cozaar] 25 mg PO DAILY #30 tablet Home Medications: Aspirin Enteric Coated [Aspirin EC] 81 mg PO DAILY #30 tablet.dr 05/04/15 [Rx] Cinacalcet HCl [Sensipar] 60 mg PO DAILY 04/06/16 [History] Metoprolol XL (24 HR) Succ [Toprol Xl] 100 mg PO DAILY #90 tab.er.24h 07/08/16 [ Rx] Albuterol Sulfate [Albuterol Inhaler] 2 puff IH Q4HR #1 hfa.aer.ad 08/19/16 [Rx] Ipratropium/Albuterol Neb [Duoneb] 3 ml IH Q6HR 09/30/16 [History] Sevelamer [Renvela] 1,600 mg PO TIDWM 30 Days 10/20/16 [Rx] Fluticasone/Salmeterol [Advair 100-50 Diskus] 1 puff IH BID 11/07/16 [History] Furosemide [Lasix] 40 mg PO DAILY 11/07/16 [History] Hydralazine HCl 10 mg PO QID 11/07/16 [History] Acetaminophen [Tylenol] 650 mg PO Q6HR PRN #30 tablet 11/21/16 [Rx] Losartan [Cozaar] 25 mg PO DAILY #30 tablet 11/21/16 [Rx] Allergies/Adverse Reactions: Allergies No Known Allergies Allergy (Verified 11/06/16 23:04) - Notes to Outpatient Provider Patient has high blood pressure. Also considering he has systolic CHF with EF 25-30%, losartan 25 mg by mouth daily added to his home medication list. Date of admission: 11/07/16 05:06 Primary care physician: Lavon Estrada Jr, MD Consults: 11/07/16 05:20 Consult to Nephrology [CONS] Routine Consulting Provider: Kidney Amelia/STEPH/JEANETTE/NICOLASA Reason for Consult: Patient with ESRD on dialysis follows with Dr. Wynne. He missed dailysis Fri. Call Completed: No 11/08/16 08:30 Consult to Dialysis [CONS] ONCE 11/08/16 08:49 Consult to Cardiothoracic Surgery [CONS] Routine Consulting Provider: Cardiothoracic Surgery Amelia Reason for Consult: Recurrent pleural effusion Call Completed: Yes 11/11/16 08:00 Consult to Dialysis [CONS] ONCE 11/12/16 10:18 Consult to Volunteer Services Supervisor [CONS] Routine Reason for SW Consult: dialysis 11/14/16 11:25 Consult to Physical Therapy [CONS] Routine Comment: Evaluate, develop and implement POC 11/14/16 11:26 Consult to Occupational Therapy [CONS] Routine Comment: Evaluate, develop and implement POC 11/15/16 08:15 Consult to Dialysis [CONS] ONCE 11/16/16 08:15 Consult to Dialysis [CONS] ONCE 11/18/16 08:30 Consult to Dialysis [CONS] ONCE 11/20/16 09:00 Consult to Dialysis [CONS] ONCE 11/20/16 10:11 Consult to Palliative Care [CONS] Routine Comment: For pain housing management officer Provider: Palliative Care Amelia 11/21/16 09:00 Consult to Dialysis [CONS] ONCE Discharging clinician: Husam Chandler Anticipated date of discharge: 11/21/16 - Patient Status Disposition: Home, Self-Care Condition: Good Functional capacity at discharge: independent ambulation Overall status at discharge: patient is back to baseline - Discharge Instructions Follow Up With: Genoveva Pepper CNP [Partnered Physician] - 11/22/16 1:25 pm Constantin March MD [Partnered Physician] - 12/02/16 1:45 pm Lamont Mora DO [Partnered Physician] - 12/02/16 8:35 am - Diet and Activity Activity: increase activity as tolerated Diet: other (Renal diet) Interval History: Mr Snyder is a 31yo male with PMH including HTN, ESRD on dialysis, COPD, CHF, and recurrent right pleural effusion. Patient comes to the ED with chief complaint of right ear/jaw pain and shortness of breath. Patient reports that he has had right ear pain for the last 2 weeks. He reports associated jaw pain stating that it feels like a toothache. He reports that sharp noises make the pain worse but nothing makes the pain better. He denies any decreased hearing or sore throat. Patient also reports increasing shortness of breath over the last 2 days. He reports difficulty walking any distance. He denies shortness of breath at rest. He has a recurrent right pleural effusion that has been drained many times over the last several months. It was last drained 1 week ago here at [facility] and they drained off 2 liters per patient report. Patient has talked with Dr. Thomas in the past about a surgical fix and had initially decided not too however he states that he would like to talk with Dr. Thomas again if possible. He does have underlying COPD and follows with [facility]. He does not use supplemental oxygen at home. Patient reports shortness of breath and weakness but denies chest pain, cough, congestion, or runny nose. Patient has ESRD and has dialysis M//. He reports that he went to dialysis Friday but because he didnt feel well he did not go on Friday. He states that he was unable to get out of bed because of his shortness of breath. He does still make urine but has a suprapubic catheter due to bladder issues. Overall patient reports associated headache, nausea/vomiting, and diarrhea/constipation. He denies fever/chills, confusion, vision changes, problems swallowing, abdominal pain. In the ED, patient is afebrile with blood pressure elevated 177/100. Heart rate 102 on admission. >95% on 2L O2. EKG showed sinus tachycardia with PVC. CXR showed a large right pleural effusion and atelectasis. Patient given amoxicillin for an otitis median and rocephin for concern for pneumonia in the ED. On exam, patient is awake and alert, in no acute distress. Right ear drum erythematous and mildly distended compared to left. Heart is regular rate and rhythm. Lungs diminished in right lower base, no crackles or wheezing. Abdomen soft, nontender. Legs with pitting edema, left worse than right. Hospital course: Mr. Snyder is a 31 year old male for pleural effusion. Cardiothoracic consult was called and the patient did decortication. After procedure, patient did recover well, chest tube removed, repeated chest x-ray shows no further pleural effusion or pneumothorax. Patient was discharged home and continue hemodialysis. Patient was seen and examined. He is awake alert, oriented 3. Still complaining of pain on the incision area. Vital signs stable. Patient is stable to discharge home. Time spent discussing smoking cessation with patient: 3 to 10 minutes - Time Spent with Patient Total time spent providing and/or coordinating discharge services: 40 minutes Greater than 30 minutes - Constitutional Vitals: Temp Pulse Resp BP Pulse Ox 98.3 F 74 15 169/95 97 11/21/16 07:00 11/21/16 07:00 11/21/16 07:00 11/21/16 07:00 11/21/16 08:08 General appearance: Present: A&O X 3, no acute distress, obese, answers questions appropriately - Head Head exam: Present: atraumatic, normocephalic - Eye Eye exam: Present: PERRL, conjuntiva pink, sclera anicteric Pupils: Present: PERRL - Neck Neck exam general surgery: Present: supple, trachea midline. Absent: lymphadenopathy - Respiratory Respiratory exam: Present: CTAB. Absent: accessory muscle use, rales, rhonchi, wheezes - Cardiovascular Cardiovascular exam: Present: RRR, +S1, +S2. Absent: diastolic murmur, gallop, rubs, systolic murmur - GI/Abdominal GI/Abdominal exam: Present: normal bowel sounds, soft, no peritoneal signs. Absent: distended, tenderness - Extremities Exam Extremities exam: Present: warm, radial pulses palpable and symetrical. Absent : calf tenderness, cyanotic, pedal edema - Neurological Exam Neurological exam: Present: CN II-XII intact, oriented X3, no focal deficits. Absent: pronater drift, facial droop, speech deficit - Skin Skin exam: Present: dry, intact - VTE Documentation of Mechanical Device: Intermittent pneumatic compression device
[2016-11-21 14:30] VITALS: BP 196/92
== END 2016-11-21 18:53 | disposition home or self-care (01) | DRG 163 ==
LOC: 2NENU 23:02 → EMEROO 23:02 → 2NENU 11-07 04:40 → SUATTDRO 11-07 05:06 → OBSVTOIN 11-07 05:06 → ICNU 11-12 09:38 → 2NENU 11-13 13:42
PROVIDERS: ADMIT Pediatrics; ATTEND Internal Medicine

== ENCOUNTER 2017-03-20 01:00 | Inpatient (IN) ==
[2017-03-20 03:51] LABS: Basophils # 0.1 K/mcL (0.0-0.2); Basophils % 1.1 %; Eosinophils # 0.3 K/mcL (0.0-0.6); Hematocrit 37.6 % (37.5-50.1); Hemoglobin 11.9 g/dL (12.9-16.9); Immature Granulocytes % 0.2 % (0-4); Lymphocytes # 1.3 K/mcL (0.6-4.6); Lymphocytes % 19.6 %; Mean Corpuscular HGB Conc 31.6 g/dL (31.6-35.5); Mean Corpuscular Volume 91.7 fL (83.0-100.0); Mean Platelet Volume 10.2 fL (9.4-12.4); Monocytes # 0.5 K/mcL (0.0-1.3); Monocytes % 7.8 %; Neutrophils # 4.3 K/mcL (1.6-8.9); Platelet Count 155 K/mcL (140-400); Red Cell Distribution Width 15.7 % (11.5-14.5); Segmented Neutrophils % 66.3 %
[2017-03-20 04:04] LABS: Calcium 9.9 mg/dL (8.6-10.8); Potassium 4.7 mEq/L (3.5-4.5)
[2017-03-20] MEDS ORDERED: Furosemide 40 MG/4 ML VIAL IVP ONE (04:43)
--- NOTE | 2017-03-20 04:51 | Emergency Department Note ---
Disposition Clinical Impression: End stage renal disease Edema Qualifiers: Edema type: unspecified Qualified Code(s): R60.9 - Edema, unspecified Disposition: Admitted As Inpatient Condition: Fair Referrals: NO,PCP [Primary Care Provider] - Forms: Work/School Release, ED Satisfaction Letter Time of Disposition: 04:55 General Adult HPI - General Chief complaint: ED Abdominal Pain Stated complaint: states hernia pain, fluid overload,dialysis pt Time Seen by Provider: 03/20/17 04:00 Source: patient Limitations: no limitations Nursing Notes Reviewed: Yes Vital Signs Reviewed: Yes - History of Present Illness HPI Narrative: Alert and oriented nontoxic appearing 31-year-old male presents for evaluation of: Shortness of breath, "retaining fluid", and pain from a right inguinal hernia. The patient states that he missed his dialysis appointment yesterday. He states that he is a Friday dialysis patient for his end- stage renal disease. He complains of being short of breath and "retaining fluid " after missing his dialysis appointment. He states that the symptoms began yesterday evening. He also complains of some pain associated from a right inguinal hernia for which he was instructed to follow-up with a surgeon at [facility] however has failed to do so as of yet. He denies any change in the characteristics, shape, or size of the hernia. He denies any chest pain, fever , chills, nausea, vomiting, or diarrhea. Onset (ago): day(s) (Yesterday) Pain Scale: 7 Consistency: constant Improves with: nothing Worsens with: movement Associated symptoms: Reports: shortness of breath. Denies: cough, diaphoresis, nausea/vomiting Treatments Prior to Arrival: none - Related Data Home Medications Medication Instructions Recorded Confirmed Cinacalcet HCl [Sensipar] 60 mg PO DAILY 04/06/16 11/07/16 Ipratropium/Albuterol Neb [Duoneb] 3 ml IH Q6HR 09/30/16 11/07/16 Fluticasone/Salmeterol [Advair 1 puff IH BID 11/07/16 11/07/16 100-50 Diskus] Furosemide [Lasix] 40 mg PO DAILY 11/07/16 11/07/16 Hydralazine HCl 10 mg PO QID 11/07/16 11/07/16 Previous Rx's Medication Instructions Recorded Aspirin Enteric Coated [Aspirin EC] 81 mg PO DAILY #30 tablet. 05/04/15 Metoprolol XL (24 HR) Succ [Toprol 100 mg PO DAILY #90 tab.er.24h 07/08/16 Xl] Albuterol Sulfate [Albuterol 2 puff IH Q4HR #1 hfa.aer.ad 08/19/16 Inhaler] Sevelamer [Renvela] 1,600 mg PO TIDWM 30 Days 10/20/16 Acetaminophen [Tylenol] 650 mg PO Q6HR PRN #30 tablet 11/21/16 Losartan [Cozaar] 25 mg PO DAILY #30 tablet 11/21/16 levoFLOXacin [Levofloxacin] 500 mg PO ONCE #3 tablet 11/28/16 Ondansetron ODT [Zofran ODT] 4 mg SL Q6HR PRN #20 tab.rapdis 03/10/17 Allergies Allergy/AdvReac Type Severity Reaction Status Date / Time No Known Allergies Allergy Verified 03/10/17 11:48 All systems ED: reviewed and negative except as stated. Constitutional: Denies: fever, chills, weakness, weight change Eyes: Denies: eye pain, eye discharge, vision change ENT ED: Denies: ear pain, throat pain, dental pain, hearing loss, epistaxis, congestion, dysphagia Cardiovascular: Denies: chest pain, palpitations, dyspnea on exertion, edema, syncope Respiratory: Reports: as per HPI, dyspnea. Denies: cough, wheezes, hemoptysis, stridor Gastrointestinal: Reports: as per HPI, other (Right inguinal hernia pain). Denies: abdominal pain, nausea, vomiting, diarrhea, constipation, hematemesis, melena, hematochezia Genitourinary: Denies: urgency, dysuria, frequency, hematuria Musculoskeletal: Denies: back pain, neck pain, arthralgia, myalgia Integumentary: Denies: rash, abrasion, lesions Neurological: Denies: headache, weakness, numbness, paresthesias, confusion, abnormal gait, vertigo Psychiatric: Denies: anxiety, depression, suicidal thoughts, homicidal thoughts , auditory hallucinations, visual hallucinations Endocrine: Denies: fatigue Hematological/Lymphatic: Denies: easy bleeding, easy bruising Allergic/Immunologic: Denies: facial swelling, urticaria Past Medical History - Past Medical History Attestation: Yes The following information was validated with the patient. Source: patient, nursing notes reviewed Medical history: Reports: cardiomyopathy, CHF, dialysis, hypertension, renal disease Surgical history: Reports: orthopedic, other, vascular surgery Psychiatric history: Reports: depression - Social History Smoking Status: Current every day smoker Smokeless Tobacco Status: No Alcohol use: Reports: none Drug use: Reports: none Physical Exam - General Limitations: no limitations General appearance: alert, in no apparent distress - Head Head exam: atraumatic, normocephalic, normal inspection - Eye Eye exam: Present: normal appearance, PERRL, EOMI. Absent: nystagmus - ENT ENT exam: mucous membranes moist - Neck Neck exam: Present: normal inspection, full ROM, trachea midline - Chest Chest inspection: Present: normal inspection, symmetric chest wall rise - Respiratory Respiratory exam: Present: normal lung sounds bilaterally. Absent: respiratory distress, wheezes, stridor, accessory muscle use, prolonged expiratory phase - Cardiovascular Cardiovascular exam: Present: regular rate, normal rhythm, normal heart sounds - Abdominal Exam Abdominal exam: Present: soft, Non-Tender, distention, normal bowel sounds. Absent: tenderness, guarding, rebound, rigidity, mass - Male exam: Present: inguinal hernia (Right sided.) - Extremities Exam Extremities exam: Present: pedal edema (3+ bilaterally) - Neurological Exam Neurological exam: Present: alert, oriented X3 - Psychiatric Psychiatric exam: Present: normal affect, normal mood - Skin Skin exam: Present: warm, dry, intact, normal color Course Course Narrative: I have discussed this patient's case with Dr. Nichols. Dr. Nichols has had a [id number] evaluation with the patient and recommends consultation with the on -call breeder hen service technician. [id number]: I spoke with Dr. Maravilla. Dr. Maravilla states that it would be a low likelihood that the patient would be able to be set up for dialysis as an outpatient today. He recommends admission to the hospitalist for observation and a emergency dialysis. He states that he will order this treatment in house , however would like the patient to be admitted to the hospitalist service. [id number]: Spoke with Dr. Alvarez who has accepted the patient for permission to the hospitalist service. She has recommended the administration of 40 mg of Lasix IV push prior to admission to the floor. Vital Signs Temperature 98.2 F 07/06/17 01:14 Pulse Rate 94 03/20/17 01:14 Respiratory Rate 16 03/20/17 01:14 Blood Pressure 161/120 03/20/17 01:14 O2 Sat by Pulse Oximetry 95 03/20/17 01:14 Temperature 98.2 F 03/20/17 01:14 Pulse Rate 94 03/20/17 01:14 Respiratory Rate 16 03/20/17 01:14 Blood Pressure 161/120 03/20/17 01:14 O2 Sat by Pulse Oximetry 95 03/20/17 01:14 Oxygen Delivery Oxygen Delivery Room Air Medical Decision Making - Medical Records Medical records reviewed: Yes I reviewed the patient's medical records. I reviewed the patient's laboratory trends with Dr. Nichols. the patients troponin is elevate at 0.07,however this i near his baseline. He has no complaints of chest pain. - Lab Data Lab results reviewed: Yes I reviewed the patient's lab results. Lab results narrative: Laboratory Last Values WBC 6.4 K/mcL (4.3-11.1) 03/20/17 03:35 RBC 4.10 M/mcL (4.19-5.50) L 03/20/17 03:35 Hgb 11.9 g/dL (12.9-16.9) L 03/20/17 03:35 Hct 37.6 % (37.5-50.1) 03/20/17 03:35 MCV 91.7 fL (83.0-100.0) 03/20/17 03:35 MCH 29.0 pg (28.0-33.3) 03/20/17 03:35 MCHC 31.6 g/dL (31.6-35.5) 03/20/17 03:35 RDW 15.7 % (11.5-14.5) H 03/20/17 03:35 Plt Count 155 K/mcL (140-400) 03/20/17 03:35 MPV 10.2 fL (9.4-12.4) 03/20/17 03:35 Immature Gran % 0.2 % (0-4) 03/20/17 03:35 Seg Neutrophils % 66.3 % 03/20/17 03:35 Lymphocytes % 19.6 % 03/20/17 03:35 Monocytes % 7.8 % 03/20/17 03:35 Eosinophils % 5.0 % 03/20/17 03:35 Basophils % 1.1 % 03/20/17 03:35 Neutrophils # 4.3 K/mcL (1.6-8.9) 03/20/17 03:35 Lymphocytes # 1.3 K/mcL (0.6-4.6) 03/20/17 03:35 Monocytes # 0.5 K/mcL (0.0-1.3) 03/20/17 03:35 Eosinophils # 0.3 K/mcL (0.0-0.6) 03/20/17 03:35 Basophils # 0.1 K/mcL (0.0-0.2) 03/20/17 03:35 Sodium 139 mEq/L (136-145) 03/20/17 03:35 Potassium 4.7 mEq/L (3.5-4.5) H 03/20/17 03:35 Chloride 98 mEq/L (98-109) 03/20/17 03:35 Carbon Dioxide 28 mEq/L (19-29) 03/20/17 03:35 BUN 42 mg/dL (8-26) H 03/20/17 03:35 Creatinine 8.62 mg/dL (0.72-1.25) H 03/20/17 03:35 Est GFR ( Amer) 9 (> 60) L 03/20/17 03:35 Est GFR (Non-Af Amer) 7 (> 60) L 03/20/17 03:35 BUN/Creatinine Ratio 5 (6-26) L 03/20/17 03:35 Glucose 92 mg/dL (70-99) 03/20/17 03:35 Calculated Osmolality 298 (280-300) 03/20/17 03:35 Lactic Acid 0.6 mmol/L (0.5-2.2) 03/20/17 03:35 Calcium 9.9 mg/dL (8.6-10.8) 03/20/17 03:35 Troponin I 0.07 ng/mL (0-0.03) H* 03/20/17 03:35 B-Natriuretic Peptide 2542 pg/mL (0-100) H 03/20/17 03:35 Result diagrams: 03/20/17 03:35 07/06/17 03:35 Lab Results 03/20/17 03/20/17 03/20/17 Range/Units 03:35 03:35 03:35 WBC 6.4 (4.3-11.1) K/mcL RBC 4.10 L (4.19-5.50) M/mcL Hgb 11.9 L (12.9-16.9) g/dL Hct 37.6 (37.5-50.1) % MCV 91.7 (83.0-100.0) fL MCH 29.0 (28.0-33.3) pg MCHC 31.6 (31.6-35.5) g/dL RDW 15.7 H (11.5-14.5) % Plt Count 155 (140-400) K/mcL MPV 10.2 (9.4-12.4) fL Immature Gran % 0.2 (0-4) % Seg Neutrophils % 66.3 % Lymphocytes % 19.6 % Monocytes % 7.8 % Eosinophils % 5.0 % Basophils % 1.1 % Neutrophils # 4.3 (1.6-8.9) K/mcL Lymphocytes # 1.3 (0.6-4.6) K/mcL Monocytes # 0.5 (0.0-1.3) K/mcL Eosinophils # 0.3 (0.0-0.6) K/mcL Basophils # 0.1 (0.0-0.2) K/mcL Sodium 139 (136-145) mEq/L Potassium 4.7 H (3.5-4.5) mEq/L Chloride 98 (98-109) mEq/L Carbon Dioxide 28 (19-29) mEq/L BUN 42 H (8-26) mg/dL Creatinine 8.62 H (0.72-1.25) mg/dL Est GFR ( Amer) 9 L (> 60) Est GFR (Non-Af Amer) 7 L (> 60) BUN/Creatinine Ratio 5 L (6-26) Glucose 92 (70-99) mg/dL Calculated Osmolality 298 (280-300) Lactic Acid 0.6 (0.5-2.2) mmol/L Calcium 9.9 (8.6-10.8) mg/dL Troponin I (0-0.03) ng/mL B-Natriuretic Peptide (0-100) pg/mL 03/20/17 03/20/17 Range/Units 03:35 03:35 WBC (4.3-11.1) K/mcL RBC (4.19-5.50) M/mcL Hgb (12.9-16.9) g/dL Hct (37.5-50.1) % MCV (83.0-100.0) fL MCH (28.0-33.3) pg MCHC (31.6-35.5) g/dL RDW (11.5-14.5) % Plt Count (140-400) K/mcL MPV (9.4-12.4) fL Immature Gran % (0-4) % Seg Neutrophils % % Lymphocytes % % Monocytes % % Eosinophils % % Basophils % % Neutrophils # (1.6-8.9) K/mcL Lymphocytes # (0.6-4.6) K/mcL Monocytes # (0.0-1.3) K/mcL Eosinophils # (0.0-0.6) K/mcL Basophils # (0.0-0.2) K/mcL Sodium (136-145) mEq/L Potassium (3.5-4.5) mEq/L Chloride (98-109) mEq/L Carbon Dioxide (19-29) mEq/L BUN (8-26) mg/dL Creatinine (0.72-1.25) mg/dL Est GFR ( Amer) (> 60) Est GFR (Non-Af Amer) (> 60) BUN/Creatinine Ratio (6-26) Glucose (70-99) mg/dL Calculated Osmolality (280-300) Lactic Acid (0.5-2.2) mmol/L Calcium (8.6-10.8) mg/dL Troponin I 0.07 H* (0-0.03) ng/mL B-Natriuretic Peptide 2542 H (0-100) pg/mL - Radiology Data Radiology results reviewed: Yes I reviewed the patient's radiology results. Chest X-Ray 03/20/17 01:33 IMPRESSION: Findings are suggestive of cardiomegaly and pulmonary venous congestion. Small pleural effusion suspected in the right minor fissure. D/ / Anton Chopra MD / Anton Chopra MD Interpreting Provider: Anton Chopra MD - EKG Data EKG #1 EKG attestation: Yes I reviewed and interpreted this EKG.
[2017-03-20] MEDS ORDERED: Acetaminophen 325 MG TABLET PO PRN (07:13)
[2017-03-20] MEDS ORDERED: Naloxone 0.4 MG/ML INJ IVP PRN (07:13)
[2017-03-20] MEDS ORDERED: Ondansetron 4 MG/2 ML VIAL IVP PRN (07:13)
[2017-03-20] MEDS: hydrALAZINE 10 MG TABLET PO SCH ×4 (07:56→21:28)
[2017-03-20] MEDS: Metoprolol XL (24 HR) Succ 50 MG TAB.ER.24H PO SCH (07:56)
[2017-03-20] MEDS: Aspirin Enteric Coated 81 MG Tablet PO SCH (07:56)
[2017-03-20] MEDS: *HR* Heparin 5,000 UNIT/ML VIAL SQ SCH ×2 (07:57→18:24)
[2017-03-20] MEDS: Furosemide 40 MG TABLET PO SCH (07:57)
[2017-03-20] MEDS: *HR* Morphine 2 MG/ML SYRINGE IVP PRN ×4 (07:58→21:27)
--- NOTE | 2017-03-20 08:21 | Internal Med History&Physical ---
Date of Encounter: 03/20/17 Time of Encounter: 07:50 Assessment and Plan (1) Dyspnea Current visit: No Status: Acute Secondary to ESRD with fluid overload and also due to acute exacerbation of systolic CHF IV Lasix given Nephrology consult Needs hemodialysis today Chest x-ray - bilateral pulmonary edema Troponin - 0.07 (chronically elevated) Strict I's and O's, fluid restriction, daily weight Labs in a.m. Qualifiers: Dyspnea type: unspecified Qualified Code(s): R06.00 - Dyspnea, unspecified (2) ESRD (end stage renal disease) on dialysis Current visit: No Status: Chronic On hemodialysis Friday was a Friday Patient missed his dialysis yesterday, will need HD today Nephrology consult (3) Systolic and diastolic CHF, acute on chronic Current visit: No Status: Acute Acute exacerbation of systolic CHF with LVEF 25-30% Continued home medications strict I's and O's, daily weight, fluid restriction and salt restriction IV Lasix given (4) Right inguinal hernia Current visit: No Status: Chronic Advised to follow up with surgeon as outpatient at [facility] (5) Non-ischemic cardiomyopathy Current visit: No Status: Chronic Continue home medications LVEF 25-30%, follows up with cardiology (6) Hypertension Current visit: No Status: Chronic uncontrolled, Continue home medications, monitor Qualifiers: Hypertension type: secondary to other renal disorders Qualified Code(s): I15.1 - Hypertension secondary to other renal disorders; N28.89 - Other specified disorders of kidney and ureter (7) COPD (chronic obstructive pulmonary disease) Current visit: No Status: Chronic Not in exacerbation, continue duo nebs Qualifiers: COPD type: unspecified COPD Qualified Code(s): J44.9 - Chronic obstructive pulmonary disease, unspecified (8) Cirrhosis of liver with ascites Current visit: No Status: Chronic Qualifiers: Hepatic cirrhosis type: unspecified hepatic cirrhosis Qualified Code(s): K74.60 - Unspecified cirrhosis of liver (9) Obesity, morbid, BMI 40.0-49.9 Current visit: No Status: Chronic BMI greater than 40, encourage weight loss, lifestyle changes (10) Chronic venous stasis dermatitis of both lower extremities Current visit: No Status: Chronic (11) Tobacco abuse Current visit: No Status: Chronic Counseled about cessation, patient declines nicotine patch (12) DVT prophylaxis Current visit: No Status: Acute Continue heparin subcutaneous Internal Medicine - H&P: HPI Chief complaint: Shortness of breath Admitted From: Emergency Dept History of present illness: Mr. Snyder is a 31 year old male with past medical history of end-stage renal disease on hemodialysis, hypertension, nonischemic cardiomyopathy, depression, COPD and history of recurrent pleural effusion status post pleurodesis. Patient presents to the ED with complaints of shortness of breath started about 2 days ago and has gradually worsened. Patient states he missed his dialysis session yesterday and thinks his edema and fluid overload is likely due to this. Symptoms are worse on exertion no alleviating factors. Patient denies chest pain denies palpitations denies headache or vomiting or diarrhea. He also complains of abdominal bloating and worsening bilateral lower leg edema. He also mentions that he does have his right inguinal hernia pain which is also chronic. He is given advice to follow-up with surgeon at [facility] but has not done so. No other associated symptoms. On examination patient is awake and alert. Not in any distress. Able to provide history. No family members at bedside. Initial evaluation in the ED reveals pulmonary edema seen on chest x-ray. His troponin is slightly elevated which is chronic. ED physician has discussed with white kid buffer Dr. Maravilla, who recommended emergency dialysis. Patient was given 40 mg Lasix in the ED. Patient has been explained about his condition and plan of care. He understood and agreed. No unanswered questions. Patient is being admitted for fluid overload requiring dialysis at this time. His access is in the left arm. CODE STATUS full code. Past Med Surg Social Fam HX - Past Medical History Medical history: cardiomyopathy, CHF, dialysis, hypertension, renal disease Psychiatric history: anxiety, depression - Past Surgical History Surgical History: orthopedic, other, vascular surgery - Social History Smoking Status: Current every day smoker Smokeless Tobacco Status: No Alcohol use: none Drug use: none - Family History Mother Adopted: No Living Status: Still Living Hx Family Cardiac Disorders: No Hx Family Respiratory Disorders: No Hx Family Cancer: No Hx Family GI Disorders: No Hx Family Genitourinary Disorders: No Hx Family Endocrine Disorder: Yes (DM) Hx Family Musculoskeletal Disorders: No Hx Family Neuromuscular Disorders: No Hx Family Neurologic Disorders: No Hx Family HEENT Disorders: No Hx Family Autoimmune Disorders: No Hx Family Reproductive Disorders: No Hx Family Psychosocial Disorders: Yes (Anxiety, Depression) Hx Family Medical Disorders: No Father Living Status: Still Living Hx Family Cardiac Disorders: Yes (CAD) Hx Family Respiratory Disorders: No Hx Family Cancer: No Hx Family GI Disorders: No Hx Family Endocrine Disorder: Yes (Diabetes) Hx Family Neuromuscular Disorders: No Hx Family Neurologic Disorders: No Hx Family HEENT Disorders: No Hx Family Autoimmune Disorders: No Internal Medicine - H&P: Meds Aspirin Enteric Coated [Aspirin EC] 81 mg PO DAILY #30 tablet. 05/04/15 [Rx] Cinacalcet HCl [Sensipar] 60 mg PO DAILY 04/06/16 [History] Metoprolol XL (24 HR) Succ [Toprol Xl] 100 mg PO DAILY #90 tab.er.24h 07/08/16 [ Rx] Albuterol Sulfate [Albuterol Inhaler] 2 puff IH Q4HR #1 hfa.aer.ad 08/19/16 [Rx] Ipratropium/Albuterol Neb [Duoneb] 3 ml IH Q6HR 09/30/16 [History] Sevelamer [Renvela] 1,600 mg PO TIDWM 30 Days 10/20/16 [Rx] Fluticasone/Salmeterol [Advair 100-50 Diskus] 1 puff IH BID 11/07/16 [History] Furosemide [Lasix] 40 mg PO DAILY 11/07/16 [History] Hydralazine HCl 10 mg PO QID 11/07/16 [History] Acetaminophen [Tylenol] 650 mg PO Q6HR PRN #30 tablet 11/21/16 [Rx] Losartan [Cozaar] 25 mg PO DAILY #30 tablet 11/21/16 [Rx] levoFLOXacin [Levofloxacin] 500 mg PO ONCE #3 tablet 11/28/16 [Rx] Ondansetron ODT [Zofran ODT] 4 mg SL Q6HR PRN #20 tab.rapdis 03/10/17 [Rx] Allergies No Known Allergies Allergy (Verified 03/10/17 11:48) All Systems PM: A 10-system review of systems was performed and is negative for pertinent findings except as documented above in the HPI. - Constitutional Constitutional: fatigue, weakness, no fever(s) - EENT Eyes: no blurry vision - Cardiovascular Cardiovascular ROS IM: dyspnea, dyspnea on exertion, edema, orthopnea, no chest pain, no diaphoresis, no lightheadedness, no syncope - Respiratory Respiratory: dyspnea, dyspnea on exertion, chest congestion, no cough, no wheezing - Gastrointestinal Gastrointestinal: bloating, no abdominal pain, no cramping, no diarrhea, no melena, no nausea, no vomiting - Genitourinary Genitourinary ROS male: no dysuria - Musculoskeletal Musculoskeletal ROS IM: no arthralgias - Neurological Neurological ROS: no abnormal gait, no abnormal speech, no dizziness, no numbness, no tingling - Constitutional Vitals: Temp Pulse Resp BP Pulse Ox 98.0 F 96 22 159/105 97 03/20/17 06:41 03/20/17 06:41 03/20/17 06:41 03/20/17 06:41 03/20/17 06:41 General appearance: Present: A&O X 3, morbidly obese, no acute distress, answers questions appropriately - Head Head exam: Present: atraumatic - Neck Neck exam general surgery: Present: supple - Respiratory Respiratory exam: Present: rales (Mild bilateral). Absent: rhonchi, wheezes, tachypnea - Cardiovascular Cardiovascular exam: Present: RRR, +S1, +S2, systolic murmur - GI/Abdominal GI/Abdominal exam: Present: distended (Ascites present), soft, no peritoneal signs. Absent: firm, guarding, rigid, tenderness - Extremities Exam Extremities exam: Present: pedal edema (Bilateral lower leg 4+ pitting), radial pulses palpable and symetrical. Absent: cyanotic - Neurological Exam Neurological exam: Present: alert, oriented X3, no focal deficits Internal Med - H&P Results - Labs CBC & Chem 7: 03/20/17 03:35 03/20/17 03:35
[2017-03-20] MEDS ORDERED: 0.9 % Sodium Chloride 250 ML IVC PRN (08:30)
[2017-03-20] MEDS ORDERED: Famotidine 20 MG TABLET PO SCH (09:00)
[2017-03-20 09:15] LABS: INR 1.3; Prothrombin Time 14.6 Seconds (9.4-12.1)
[2017-03-20] MEDS: Budesonide/Formoterol 80/4.5 MDI IH SCH ×2 (11:27→23:04)
[2017-03-20] MEDS: Ipratropium/Albuterol Neb 3 ML IH SCH ×3 (11:31→23:04)
--- NOTE | 2017-03-20 12:31 | Electrocardiograph Report ---
[address] [place], [place] [address] Test Date: 2017-03-20 Pat Name: Song Snyder Department: 105 Room: 2A43 Gender: M Fire[employer]: : 1985 Requested By: Silvio Nichols Order Number: [id number] Reading MD: Enoc Patten MD Measurements Intervals [place] Rate: 92 P: 34 WY: 155 QRS: -15 QRSD: 112 T: 136 QT: 370 QTc: 419 Interpretive Statements SINUS RHYTHM LATERAL ISCHEMIA Electronically Signed On 03-20-2017 12:29:59 EDT by Enoc Patten MD
[2017-03-20] MEDS ORDERED: 0.9 % Sodium Chloride 2,000 ML ONE (12:48)
--- NOTE | 2017-03-20 12:53 | Nephrology Consult Note ---
Date of Encounter: 03/20/17 Time of Encounter: 10:00 Assessment and Plan (1) End stage renal disease Current Visit: Yes Status: Chronic He skpped/missed HD yesterday and is very much above his dry weight. He will need urgent HD today and tentatively planning for next HD tomorrow (Friday) Continue standard antihypertensive Rx (2) Edema Current Visit: Yes Status: Acute Qualifiers: Edema type: generalized Qualified Code(s): R60.1 - Generalized edema (3) Accelerated hypertension Current Visit: No Status: Acute History of Present Illness - Reason for Consult Consult date: 03/20/17 end stage renal disease - Chief Complaint Edema, Shortness of breath, ESRD - History of Present Illness Song Snyder is a very pleasant 31 y/o gentleman with a pmh of obesity, edema , ESRD on HD M/WF, recurrent pleural effusion and et al who presented with worsened shortness of breath and worsened pleural effusion. He did not affirm N/ V/D but did report pleuric chest pain. He last attended dialysis on Friday at his chronic unit, [facility] in [place], [place]. His primary talent solutions manager is Dr. Wynne. He dialyzes via a LUE AVF. He did not affirm F/C or problems with chronic suprapubic catheter. He said he missed dialysis yesterday due to family issues. Past Med Surg Social Fam HX - Past Medical History Medical history: cardiomyopathy, CHF, dialysis, hypertension, renal disease Psychiatric history: anxiety, depression - Past Surgical History Surgical History: orthopedic, other, vascular surgery - Social History Smoking Status: Current every day smoker Smokeless Tobacco Status: No Alcohol use: none Drug use: none - Family History Mother Adopted: No Living Status: Still Living Hx Family Cardiac Disorders: No Hx Family Respiratory Disorders: No Hx Family Cancer: No Hx Family GI Disorders: No Hx Family Genitourinary Disorders: No Hx Family Endocrine Disorder: Yes (DM) Hx Family Musculoskeletal Disorders: No Hx Family Neuromuscular Disorders: No Hx Family Neurologic Disorders: No Hx Family HEENT Disorders: No Hx Family Autoimmune Disorders: No Hx Family Reproductive Disorders: No Hx Family Psychosocial Disorders: Yes (Anxiety, Depression) Hx Family Medical Disorders: No Father Living Status: Still Living Hx Family Cardiac Disorders: Yes (CAD) Hx Family Respiratory Disorders: No Hx Family Cancer: No Hx Family GI Disorders: No Hx Family Endocrine Disorder: Yes (Diabetes) Hx Family Neuromuscular Disorders: No Hx Family Neurologic Disorders: No Hx Family HEENT Disorders: No Hx Family Autoimmune Disorders: No Medications and Allergies No Known Home Drugs 03/20/17 [History] Allergies No Known Allergies Allergy (Verified 03/10/17 11:48) Review of Systems All Systems: reviewed and no additional remarkable complaints except as stated Exam - Vital Signs Vital signs: Initial Vital Signs Temp Pulse Resp BP Pulse Ox 98.2 F 94 16 161/120 95 03/20/17 01:14 03/20/17 01:14 03/20/17 01:14 03/20/17 01:14 03/20/17 01:14 Vital Signs - Last 8 Hours Temp Pulse Resp BP Pulse Ox 03/20/17 06:41 98.0 F 96 22 159/105 97 03/20/17 05:15 0 F L 0 0/0 03/20/17 05:02 90 18 162/120 95 Intake and Output 03/19/17 03/20/17 03/20/17 23:59 07:59 15:59 Intake Total 180 / 180 Balance 180 / 180 Intake: Oral 180 / 180 Other: Meal Breakfast Percent of Meal Consumed 100% # Bowel Movements 1 Weight 152.135 kg Patient Weight 03/20/17 23:59 Weight 152.135 kg - General Appearance Exam: General appearance: well-developed, well-nourished, appears started age, chronically ill EENT: ATNC, PERRL, mucous membranes moist Neck: supple Respiratory: course breath sounds Cardiology: edema, regular rate, regular rhythm, normal S1, normal S2 - Dialysis Access Dialysis Vascular Access: Arteriovenous Fistula (LUE AVF) thrill: Yes bruit: Yes Gastrointestinal: normoactive bowel sounds, no tenderness, obese Integumentary: no rash, warm and dry Neurologic: no focal deficit, no asterixis, alert and oriented x3 Musculoskeletal: no deformities, no erythema, no cyanosis Psychiatric: mood/affect appropriate, cooperative Results - Lab Results 03/20/17 03:35 03/20/17 03:35 Most recent lab results Calcium 9.9 mg/dL (8.6-10.8) 03/20/17 03:35 I reviewed the above Auto-Generated data stephens and also reviewed outside medical records from [facility], plus progress notes, Labs, Meds, Vitals and Imaging. Consult Discharge Plan - Plan Referrals: NO,PCP [Primary Care Provider] -
[2017-03-20 16:21] LABS: Bilirubin,Urine Negative (Negative); Blood,Urine Large (Negative); Clarity,Urine Turbid (Clear); Glucose,Urine (UA) Normal (Normal); Ketones,Urine Negative (Negative); Leukocyte Esterase,Urine Large (Negative); Nitrite,Urine Negative (Negative); Protein,Urine >=300 mg/dL (Neg-Trace); Specific Gravity,Urine 1.013 (1.010-1.025); Urobilinogen,Urine Normal (Normal)
[2017-03-20 16:24] LABS: Bacteria,Urine Many per hpf (None-Few); Squamous Epithelial Cell,Urine Many per lpf (None-Few); WBC,Urine TNTC per hpf (0-3)
[2017-03-20 16:32] LABS: Color,Urine Dark Yellow (Yellow)
[2017-03-20 16:41] LABS: Hyaline Casts,Urine None Seen per lpf (None-Few)
[2017-03-21] MEDS: *HR* Morphine 2 MG/ML SYRINGE IVP PRN ×2 (02:16→06:25)
[2017-03-21] MEDS: Ipratropium/Albuterol Neb 3 ML IH SCH (03:34)
[2017-03-21] MEDS ORDERED: Ipratropium/Albuterol Neb 3 ML IH SCH (04:00)
[2017-03-21] MEDS: *HR* Heparin 5,000 UNIT/ML VIAL SQ SCH ×2 (05:57→17:18)
[2017-03-21 06:03] LABS: Albumin/Globulin Ratio 0.8 (1.1-2.2); Alkaline Phosphatase 149 Units/L (38-126); Aspartate Amino Transferase 9 Units/L (5-34); BUN/Creatinine Ratio 4 (6-26); Bilirubin,Total 0.9 mg/dL (0.2-1.2); Blood Urea Nitrogen 33 mg/dL (8-26); Calcium 9.6 mg/dL (8.6-10.8); Carbon Dioxide 31 mEq/L (19-29); Chloride 95 mEq/L (98-109); Globulin 3.6 g/dL (2.4-3.5); Glucose 104 mg/dL (70-99); Osmolality,Calculated 294 (280-300); Potassium 5.1 mEq/L (3.5-4.5); Sodium 138 mEq/L (136-145); Total Protein 6.6 g/dL (6.0-8.3); eGFR For African Americans 10 (> 60); eGFR For Non-African Americans 8 (> 60)
[2017-03-21 06:11] LABS: Basophils # 0.1 K/mcL (0.0-0.2); Basophils % 1.5 %; Eosinophils # 0.4 K/mcL (0.0-0.6); Eosinophils % 4.8 %; Hematocrit 39.2 % (37.5-50.1); Immature Granulocytes % 0.2 % (0-4); Lymphocytes # 1.4 K/mcL (0.6-4.6); Lymphocytes % 16.9 %; Mean Corpuscular HGB Conc 30.6 g/dL (31.6-35.5); Mean Corpuscular Hemoglobin 28.3 pg (28.0-33.3); Mean Corpuscular Volume 92.5 fL (83.0-100.0); Mean Platelet Volume 10.3 fL (9.4-12.4); Monocytes # 0.9 K/mcL (0.0-1.3); Monocytes % 10.5 %; Neutrophils # 5.4 K/mcL (1.6-8.9); Platelet Count 157 K/mcL (140-400); Red Blood Count 4.24 M/mcL (4.19-5.50); Red Cell Distribution Width 15.9 % (11.5-14.5); Segmented Neutrophils % 66.1 %
[2017-03-21 06:16] LABS: Alanine Aminotransferase < 6 Units/L (0-55)
[2017-03-21] MEDS ORDERED: Famotidine 20 MG TABLET PO SCH (07:30)
[2017-03-21] MEDS ORDERED: 0.9 % Sodium Chloride 250 ML IVC PRN (08:02)
[2017-03-21] MEDS: hydrALAZINE 10 MG TABLET PO SCH ×3 (09:00→17:18)
[2017-03-21] MEDS: Aspirin Enteric Coated 81 MG Tablet PO SCH (09:05)
[2017-03-21] MEDS ORDERED: Ipratropium/Albuterol Neb 3 ML IH PRN (09:12)
[2017-03-21] MEDS: Budesonide/Formoterol 80/4.5 MDI IH SCH (10:03)
[2017-03-21] MEDS: *HR* HYDROcodone/Acet 5/325 mg TABLET PO PRN ×2 (10:35→14:18)
[2017-03-21] MEDS ORDERED: 0.9 % Sodium Chloride 2,000 ML ONE (10:54)
[2017-03-21] MEDS: Furosemide 40 MG TABLET PO SCH (14:18)
[2017-03-21] MEDS: Metoprolol XL (24 HR) Succ 50 MG TAB.ER.24H PO SCH (14:18)
--- NOTE | 2017-03-21 14:22 | Discharge Summary ---
<Rustam Baltazar - Last Filed: 03/21/17 14:18> Date of Encounter: 03/21/17 Time of Encounter: 11:30 - Discharge Diagnosis (1) ESRD (end stage renal disease) on dialysis Priority: Primary Status: Chronic (2) Dyspnea Priority: Secondary Status: Acute Qualifiers: Dyspnea type: shortness of breath Qualified Code(s): R06.02 - Shortness of breath (3) Non-ischemic cardiomyopathy Priority: Secondary Status: Chronic (4) Hypertension Priority: Secondary Status: Chronic Qualifiers: Hypertension type: secondary to other renal disorders Qualified Code(s): I15.1 - Hypertension secondary to other renal disorders; N28.89 - Other specified disorders of kidney and ureter - Discharge Medications Home Medications: No Known Home Drugs 03/20/17 [History] Allergies/Adverse Reactions: Allergies No Known Allergies Allergy (Verified 03/10/17 11:48) Date of admission: 03/20/17 14:47 Primary care physician: PCP NO Consults: 03/21/17 08:15 Consult to Dialysis [CONS] ONCE Discharging clinician: Rustam Baltazar Anticipated date of discharge: 03/21/17 - Patient Status Disposition: Home, Self-Care Condition: Fair Functional capacity at discharge: independent ambulation Overall status at discharge: patient is progressing back to baseline - Discharge Instructions Follow Up With: NO,PCP [Primary Care Provider] - (Follow up with PCP within a week.) Additional Instructions: Please be compliant with your hemodialysis schedule. Please follow up with your primary care provider within a week. - Diet and Activity Activity: increase activity as tolerated Diet: low salt diet Hospital course: Mr. Snyder is a 31 year old male with PMH of ESRD on HD MWF, non-ischemic cardiomyopathy, recurrent pleural effusion and non-compliance. Patient presented with complaint of 2-day history of worsening dyspnea and reported missing his last hemodialysis. CXR suggests cardiomegaly and pulmonary venous congestion with suspected small pleural effusion in the right minor fissure. Patient was admitted on 03/20/17 for dyspnea secondary to fluid overload likely due to missing hemodialysis. Nephrology was consulted and patient received hemodialysis on 03/20 and 03/21. Patient's respiratory status improves after dialysis and remains hemodynamically stable. Will discharge patient home today and patient is instructed to be compliant with his hemodialysis schedule and follow up with his PCP within a week. Patient verbalized his understanding and agrees with the discharge plan. - Time Spent with Patient Total time spent providing and/or coordinating discharge services: Greater than 30 minutes - Constitutional Vitals: Temp Pulse Resp BP Pulse Ox 97.2 F L 79 18 130/67 93 03/21/17 09:25 03/21/17 08:00 03/21/17 09:25 03/21/17 13:10 03/21/17 08:00 General appearance: Present: cooperative, A&O X 3, morbidly obese, no acute distress, answers questions appropriately - Head Head exam: Present: atraumatic, normocephalic - Eye Eye exam: Present: EOMI, PERRL, conjuntiva pink, sclera anicteric - Neck Neck exam general surgery: Present: supple, trachea midline. Absent: lymphadenopathy - Respiratory Respiratory exam: Present: CTAB. Absent: accessory muscle use, rales, rhonchi, wheezes - Cardiovascular Cardiovascular exam: Present: RRR, +S1, +S2. Absent: diastolic murmur, gallop, rubs, systolic murmur - GI/Abdominal GI/Abdominal exam: Present: normal bowel sounds, soft, no peritoneal signs. Absent: distended, tenderness - Extremities Exam Extremities exam: Present: pedal edema (2+ pitting edema of bilateral lower extremities.), warm, radial pulses palpable and symetrical. Absent: calf tenderness, cyanotic - Neurological Exam Neurological exam: Present: CN II-XII intact, oriented X3, no focal deficits. Absent: pronater drift, facial droop, speech deficit - Skin Skin exam: Present: dry, intact, warm <Ralph Snyder - Last Filed: 03/21/17 16:13> Date of Encounter: 03/21/17 - Discharge Diagnosis (1) CHF (congestive heart failure) Priority: Primary Status: Chronic Qualifiers: Congestive heart failure type: systolic Congestive heart failure chronicity : acute on chronic Qualified Code(s): I50.23 - Acute on chronic systolic ( congestive) heart failure (2) Right inguinal hernia Priority: Secondary Status: Chronic (3) Non-ischemic cardiomyopathy Priority: Secondary Status: Chronic (4) Hypertension Status: Chronic Qualifiers: Hypertension type: secondary to other renal disorders Qualified Code(s): I15.1 - Hypertension secondary to other renal disorders; N28.89 - Other specified disorders of kidney and ureter (5) COPD (chronic obstructive pulmonary disease) Priority: Secondary Status: Chronic Qualifiers: COPD type: unspecified COPD Qualified Code(s): J44.9 - Chronic obstructive pulmonary disease, unspecified (6) Cirrhosis of liver with ascites Priority: Secondary Status: Chronic Qualifiers: Hepatic cirrhosis type: unspecified hepatic cirrhosis Qualified Code(s): K74.60 - Unspecified cirrhosis of liver (7) Obesity, morbid, BMI 40.0-49.9 Priority: Secondary Status: Chronic (8) Chronic venous stasis dermatitis of both lower extremities Priority: Secondary Status: Chronic (9) Tobacco abuse Priority: Secondary Status: Chronic Date of admission: 03/20/17 14:47 Primary care physician: PCP NO Consults: 03/21/17 08:15 Consult to Dialysis [CONS] ONCE Hospital course: Mr. Snyder is a 31 year old male - Time Spent with Patient Total time spent providing and/or coordinating discharge services: 38min - Constitutional Vitals: Temp Pulse Resp BP Pulse Ox 98.1 F 77 18 152/103 94 03/21/17 14:56 03/21/17 14:56 03/21/17 14:56 03/21/17 14:56 03/21/17 14:56 - Attending Attestation I examined this patient and my medical decision-making was reviewed with the Resident Physician on 03/21/17. I agree with the documented findings, disposition and treatment plan as described except to the extent set forth below. Mr. Snyder has been admitted due to acute volume overload due to noncompliance with dialysis. He has had 2 days of treatment and is ready for discharge home. He is afebrile and vitals stable. Exam Alert. Comfortable Heart reg Edema present Plan D/C home today Follow up with PCP He was admitted inpatient at the time he presented. At that time it was anticipated he would be hospitalized greater than 2 midnights. With dialysis he has improved and is ready to be discharged under the 2 midnight time.
[2017-03-21 14:58] VITALS: BP 152/103
--- NOTE | 2017-03-21 18:20 | Nephrology Progress Note ---
Date of Encounter: 03/21/17 Time of Encounter: 09:00 - Assessment and Plan (1) End stage renal disease Status: Chronic Plan for HD today for clearance and UF Should be fine to d/c after HD today. (2) Edema Status: Acute HD for clearance and UF. S/p extra HD yesterday Qualifiers: Edema type: generalized Qualified Code(s): R60.1 - Generalized edema (3) Accelerated hypertension Status: Acute BP should trend better with improved volume status. I also spent >50% of my time with him about 20min counseling him about methods to avoid recurrent edema , HTN (i.e, avoiding missing HD, consume less sodium, diet/exercise as tolerated ) Subjective Principal diagnosis: ESRD, Edema, Missed HD earlier this week Interval history: Pt was s/e earlier today (delayed note entry). He did not affirm N/V/D or uremic symptoms. Still has increased LE edema. Objective - Vital Signs Vital signs: Vital Signs Temp Pulse Resp BP Pulse Ox 03/21/17 14:56 98.1 F 77 18 152/103 94 03/21/17 13:35 97.1 F L 18 131/73 03/21/17 13:25 121/68 03/21/17 13:10 130/67 03/21/17 12:55 133/87 03/21/17 12:40 130/69 03/21/17 12:25 116/59 03/21/17 12:10 122/67 03/21/17 11:55 133/77 03/21/17 11:28 139/85 03/21/17 11:25 120/66 03/21/17 11:10 135/74 03/21/17 10:55 120/76 03/21/17 10:40 134/70 03/21/17 10:25 145/78 03/21/17 10:10 139/77 03/21/17 09:55 135/85 03/21/17 09:40 145/76 03/21/17 09:25 97.2 F L 18 139/83 03/21/17 08:00 98.3 F 79 18 125/91 93 03/21/17 04:35 97.9 F 74 16 119/69 95 03/21/17 03:35 16 98 03/21/17 00:16 98.2 F 76 18 115/74 94 03/20/17 23:06 16 94 03/20/17 20:08 98 F 81 16 118/77 92 Intake and Output 03/21/17 03/21/17 03/21/17 07:59 15:59 23:59 Intake Total 1140 / 1140 60 / 60 Output Total 5600 / 5600 Balance -4460 / -4460 60 / 60 Intake: Oral 540 / 540 60 / 60 Intake, Rinseback and 600 / 600 Flushes Output: Urine 0 / 0 Total Dialysis (HD) 5600 / 5600 Output Other: Meal Breakfast Percent of Meal Consumed 100% Weight 153.23 kg Hemodialysis Net Fluid 5000 Removed (mL) Patient Weight 03/21/17 23:59 Weight 153.23 kg - General Appearance Exam: General appearance: well-developed, well-nourished, appears started age, chronically ill EENT: ATNC, PERRL, mucous membranes moist Neck: supple Respiratory: course breath sounds Cardiology: edema, regular rate, regular rhythm, normal S1, normal S2 - Dialysis Access Dialysis Vascular Access: Arteriovenous Fistula (LUE AVF) thrill: Yes bruit: Yes Gastrointestinal: normoactive bowel sounds, no tenderness, obese Integumentary: no rash, warm and dry Neurologic: no focal deficit, no asterixis, alert and oriented x3 Musculoskeletal: no deformities, no erythema, no cyanosis Psychiatric: mood/affect appropriate, cooperative - Lab 03/21/17 05:06 03/21/17 05:06 Most recent lab results Calcium 9.6 mg/dL (8.6-10.8) 03/21/17 05:06 Consult Discharge Plan - Plan Instructions: Hemodialysis (DC), Dialysis Diet (GEN), End-Stage Kidney Disease (DC) Additional Instructions: Please be compliant with your hemodialysis schedule. Please follow up with your primary care provider within a week. Referrals: NO,PCP [Primary Care Provider] - (Please follow up with Dr. Maravilla on your normal HD days. Scheduled Every Friday, Friday And Friday)
== END 2017-03-21 19:00 | disposition home or self-care (01) | DRG 291 ==
LOC: 2ANU 01:00 → EMEROO 01:00 → 2ANU 06:09
PROVIDERS: ADMIT Internal Medicine Endocrinology, Diabetes & Metabolism; ATTEND Internal Medicine

== ENCOUNTER 2017-03-31 23:44 | Observation (INO) ==
[2017-04-01] MEDS ORDERED: *HR* Morphine 2 MG/ML SYRINGE IVP ONE (00:34)
[2017-04-01] MEDS ORDERED: Ondansetron 4 MG/2 ML VIAL IVP ONE (00:34)
[2017-04-01 01:58] LABS: Basophils # 0.1 K/mcL (0.0-0.2); Basophils % 1.1 %; Eosinophils # 0.3 K/mcL (0.0-0.6); Eosinophils % 4.7 %; Hematocrit 36.8 % (37.5-50.1); Hemoglobin 11.7 g/dL (12.9-16.9); Immature Granulocytes % 0.3 % (0-4); Immature Platelets 4.2 % (1.1-6.1); Lymphocytes # 1.3 K/mcL (0.6-4.6); Lymphocytes % 19.8 %; Mean Corpuscular HGB Conc 31.8 g/dL (31.6-35.5); Mean Corpuscular Hemoglobin 28.9 pg (28.0-33.3); Mean Corpuscular Volume 90.9 fL (83.0-100.0); Mean Platelet Volume 10.5 fL (9.4-12.4); Monocytes # 0.6 K/mcL (0.0-1.3); Monocytes % 9.5 %; Neutrophils # 4.3 K/mcL (1.6-8.9); Platelet Count 139 K/mcL (140-400); Red Blood Count 4.05 M/mcL (4.19-5.50); Red Cell Distribution Width 16.3 % (11.5-14.5); Segmented Neutrophils % 64.6 %
[2017-04-01 02:06] LABS: Bilirubin,Urine Negative (Negative); Blood,Urine Large (Negative); Clarity,Urine Turbid (Clear); Color,Urine Yellow (Yellow); Glucose,Urine (UA) Normal (Normal); Ketones,Urine Negative (Negative); Leukocyte Esterase,Urine Small (Negative); Nitrite,Urine Negative (Negative); PH,Urine 8.5 pH Units (5.0-8.0); Protein,Urine >=300 mg/dL (Neg-Trace); Specific Gravity,Urine 1.014 (1.010-1.025); Urobilinogen,Urine Normal (Normal)
[2017-04-01 02:16] LABS: Albumin 3.1 g/dL (3.5-5.0); Albumin/Globulin Ratio 0.8 (1.1-2.2); Bilirubin,Indirect 0.4 mg/dL (0.0-1.2); Bilirubin,Total 0.7 mg/dL (0.2-1.2); Calcium 9.9 mg/dL (8.6-10.8); Total Protein 7.1 g/dL (6.0-8.3)
[2017-04-01 02:18] LABS: Bilirubin,Direct 0.3 mg/dL (0.0-0.5); Potassium 5.4 mEq/L (3.5-4.5)
[2017-04-01 02:20] LABS: Bacteria,Urine Many per hpf (None-Few); Squamous Epithelial Cell,Urine Moderate per lpf (None-Few)
[2017-04-01 02:21] LABS: Triple Phosphate Crystal,Urine Present
--- NOTE | 2017-04-01 06:06 | Emergency Department Note ---
Disposition Clinical Impression: Abdominal pain Qualifiers: Abdominal location: generalized Qualified Code(s): R10.84 - Generalized abdominal pain Disposition: Home, Self-Care Condition: Good General Adult HPI - General Chief complaint: ED General Medical Stated complaint: abdominal pain Time Seen by Provider: 03/31/17 23:51 Source: EMS Limitations: no limitations Nursing Notes Reviewed: Yes Vital Signs Reviewed: Yes - History of Present Illness HPI Narrative: 31-year-old male who presents with concern for abdominal pain. He does have end -stage renal failure. He is on dialysis. He has a history of pica. He eats excessive amounts of cinnamon as well as cumin. Today he is concerned about abdominal pain. He does not a suprapubic catheter in place. He has no fever or chills. He has had ascites in the past. Pain Scale: 8 - Related Data Home Medications Medication Instructions Recorded Confirmed No Known Home Drugs 03/20/17 03/20/17 Allergies Allergy/AdvReac Type Severity Reaction Status Date / Time No Known Allergies Allergy Verified 03/10/17 11:48 All systems ED: reviewed and negative except as stated. Past Medical History - Past Medical History Medical history: Reports: cardiomyopathy, CHF, dialysis, hypertension, renal disease Surgical history: Reports: orthopedic, other, vascular surgery Psychiatric history: Reports: anxiety, depression - Social History Smoking Status: Current every day smoker Smokeless Tobacco Status: No Alcohol use: Reports: none Drug use: Reports: none Physical Exam [place] warm and dry in no acute distress Trachea midline Lungs clear to go bilaterally Regular rate and rhythm Abdomen is massively obese without peritonitis there is a suprapubic catheter in place Extremities are well perfused Cranial nerves II through XII are grossly intact - General Limitations: no limitations General appearance: alert, in no apparent distress Course Vital Signs Temperature 98.2 F 03/31/17 23:48 Pulse Rate 99 03/31/17 23:48 Respiratory Rate 18 03/31/17 23:48 Blood Pressure 164/110 03/31/17 23:48 O2 Sat by Pulse Oximetry 99 03/31/17 23:48 Temperature 98.2 F 03/31/17 23:48 Pulse Rate 99 03/31/17 23:48 Respiratory Rate 18 03/31/17 23:48 Blood Pressure 164/110 03/31/17 23:48 O2 Sat by Pulse Oximetry 99 03/31/17 23:48 Oxygen Delivery Oxygen Delivery Room Air Medical Decision Making - MDM Narrative Medical decision making narrative: This is a male patient with massive ascites. Will admit for paracentesis. He has a non-peritoneal abdominal exam on arrival. His urine sample was obtained from suprapubic catheter and appears to be a contaminated sample however I would proceed with sending for culture. The patient does admit to excessive cinnamon intake. I did contact poison control. There is no indication for any further monitoring. The patient admits he has pica which contributed to cirrhosis. He denies all call use. We will admit for therapeutic paracentesis by interventional radiology. - Medical Records Medical records reviewed: Yes I reviewed the patient's medical records. - Lab Data Lab results reviewed: Yes I reviewed the patient's lab results. Result diagrams: 04/01/17 01:00 04/01/17 01:00 Lab Results 04/01/17 04/01/17 04/01/17 Range/Units 01:00 01:00 01:00 WBC 6.6 (4.3-11.1) K/mcL RBC 4.05 L (4.19-5.50) M/mcL Hgb 11.7 L (12.9-16.9) g/dL Hct 36.8 L (37.5-50.1) % MCV 90.9 (83.0-100.0) fL MCH 28.9 (28.0-33.3) pg MCHC 31.8 (31.6-35.5) g/dL RDW 16.3 H (11.5-14.5) % Plt Count 139 L (140-400) K/mcL MPV 10.5 (9.4-12.4) fL Immature Gran % 0.3 (0-4) % Seg Neutrophils % 64.6 % Lymphocytes % 19.8 % Monocytes % 9.5 % Eosinophils % 4.7 % Basophils % 1.1 % Neutrophils # 4.3 (1.6-8.9) K/mcL Lymphocytes # 1.3 (0.6-4.6) K/mcL Monocytes # 0.6 (0.0-1.3) K/mcL Eosinophils # 0.3 (0.0-0.6) K/mcL Basophils # 0.1 (0.0-0.2) K/mcL Immature Plt Fraction 4.2 (1.1-6.1) % Sodium 136 (136-145) mEq/L Potassium 5.4 H (3.5-4.5) mEq/L Chloride 97 L (98-109) mEq/L Carbon Dioxide 26 (19-29) mEq/L BUN 64 H (8-26) mg/dL Creatinine 9.01 H (0.72-1.25) mg/dL Est GFR ( Amer) 8 L (> 60) Est GFR (Non-Af Amer) 7 L (> 60) BUN/Creatinine Ratio 7 (6-26) Glucose 83 (70-99) mg/dL Calculated Osmolality 299 (280-300) Lactic Acid 0.7 (0.5-2.2) mmol/L Calcium 9.9 (8.6-10.8) mg/dL Total Bilirubin 0.7 (0.2-1.2) mg/dL Direct Bilirubin 0.3 (0.0-0.5) mg/dL Indirect Bilirubin 0.4 (0.0-1.2) mg/dL AST 18 (5-34) Units/L ALT 7 (0-55) Units/L Alkaline Phosphatase 175 H (38-126) Units/L Serum Total Protein 7.1 (6.0-8.3) g/dL Albumin 3.1 L (3.5-5.0) g/dL Globulin 4.0 H (2.4-3.5) g/dL Albumin/Globulin Ratio 0.8 L (1.1-2.2) Amylase 60 (25-125) Units/L Lipase 17 (8-78) Units/L Urine Color (Yellow) Urine Clarity (Clear) Urine pH (5.0-8.0) pH Units Ur Specific [place] (1.010-1.025) Urine Protein (Neg-Trace) mg/dL Urine Glucose (UA) (Normal) mg/dL Urine Ketones (Negative) mg/dL Urine Blood (Negative) Urine Nitrite (Negative) Urine Bilirubin (Negative) Urine Urobilinogen (Normal) mg/dL Ur Leukocyte Esterase (Negative) Urine Microscopic RBC (0-3) per hpf Urine Microscopic WBC (0-3) per hpf Ur Squamous Epith Cells (None-Few) per lpf Triple Phos Crystals Urine Bacteria (None-Few) per hpf Ur Culture Indicated? (NO) 04/01/17 Range/Units 01:40 WBC (4.3-11.1) K/mcL RBC (4.19-5.50) M/mcL Hgb (12.9-16.9) g/dL Hct (37.5-50.1) % MCV (83.0-100.0) fL MCH (28.0-33.3) pg MCHC (31.6-35.5) g/dL RDW (11.5-14.5) % Plt Count (140-400) K/mcL MPV (9.4-12.4) fL Immature Gran % (0-4) % Seg Neutrophils % % Lymphocytes % % Monocytes % % Eosinophils % % Basophils % % Neutrophils # (1.6-8.9) K/mcL Lymphocytes # (0.6-4.6) K/mcL Monocytes # (0.0-1.3) K/mcL Eosinophils # (0.0-0.6) K/mcL Basophils # (0.0-0.2) K/mcL Immature Plt Fraction (1.1-6.1) % Sodium (136-145) mEq/L Potassium (3.5-4.5) mEq/L Chloride (98-109) mEq/L Carbon Dioxide (19-29) mEq/L BUN (8-26) mg/dL Creatinine (0.72-1.25) mg/dL Est GFR ( Amer) (> 60) Est GFR (Non-Af Amer) (> 60) BUN/Creatinine Ratio (6-26) Glucose (70-99) mg/dL Calculated Osmolality (280-300) Lactic Acid (0.5-2.2) mmol/L Calcium (8.6-10.8) mg/dL Total Bilirubin (0.2-1.2) mg/dL Direct Bilirubin (0.0-0.5) mg/dL Indirect Bilirubin (0.0-1.2) mg/dL AST (5-34) Units/L ALT (0-55) Units/L Alkaline Phosphatase (38-126) Units/L Serum Total Protein (6.0-8.3) g/dL Albumin (3.5-5.0) g/dL Globulin (2.4-3.5) g/dL Albumin/Globulin Ratio (1.1-2.2) Amylase (25-125) Units/L Lipase (8-78) Units/L Urine Color Yellow (Yellow) Urine Clarity Turbid A (Clear) Urine pH 8.5 H (5.0-8.0) pH Units Ur Specific [place] 1.014 (1.010-1.025) Urine Protein >=300 H (Neg-Trace) mg/dL Urine Glucose (UA) Normal (Normal) mg/dL Urine Ketones Negative (Negative) mg/dL Urine Blood Large H (Negative) Urine Nitrite Negative (Negative) Urine Bilirubin Negative (Negative) Urine Urobilinogen Normal (Normal) mg/dL Ur Leukocyte Esterase Small H (Negative) Urine Microscopic RBC 5-15 H (0-3) per hpf Urine Microscopic WBC 3-5 H (0-3) per hpf Ur Squamous Epith Cells Moderate H (None-Few) per lpf Triple Phos Crystals Present Urine Bacteria Many H (None-Few) per hpf Ur Culture Indicated? YES A (NO)
[2017-04-01] MEDS ORDERED: *HR* Labetalol 20 MG/4 ML SYRINGE IVP ONE (06:52)
[2017-04-01] MEDS ORDERED: Acetaminophen 325 MG TABLET PO PRN (07:47)
[2017-04-01] MEDS ORDERED: Ondansetron 4 MG/2 ML VIAL IVP PRN (07:47)
[2017-04-01] MEDS ORDERED: Naloxone 0.4 MG/ML INJ IVP PRN (07:47)
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
[2017-04-01] MEDS: Furosemide 40 MG/4 ML VIAL IVP SCH ×2 (08:03→17:53)
[2017-04-01] MEDS: Nicotine 21 MG PATCH.TD24 TD SCH (08:04)
[2017-04-01 08:26] LABS: INR 1.3; Prothrombin Time 13.6 Seconds (9.4-12.1)
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
[2017-04-01] MEDS: *HR* Morphine 2 MG/ML SYRINGE IVP PRN ×3 (09:23→20:22)
[2017-04-01] MEDS ORDERED: 0.9 % Sodium Chloride 250 ML IVC PRN (10:29)
[2017-04-01] MEDS ORDERED: 0.9 % Sodium Chloride 1,000 ML PRIME SCH (10:30)
[2017-04-01] MEDS ORDERED: 0.9 % Sodium Chloride 2,000 ML ONE (12:15)
[2017-04-01] MEDS ORDERED: *HR* Heparin 5,000 UNIT/ML VIAL ONE (12:16)
--- NOTE | 2017-04-01 15:02 | IR Procedure Note ---
Date of procedure: 04/01/17 Consent Obtained: Written consent Timeout: Correct patient and procedure verified, Time out performed, Skin prep completed Local anesthetic: Lidocaine 1% Indications: Recurrent ascites Results/Findings: Paracentesis Complications: None; Tolerated procedure well (Monitor on floor)
[2017-04-01] MEDS ORDERED: Albumin 25% 25gram/100mL 25 GM/100 ML IV.SOLN IVPB ONE (15:54)
[2017-04-01] MEDS ORDERED: Albumin 25% 25gram/100mL 25 GM/100 ML IV.SOLN IVC SCH (16:00)
[2017-04-01] MEDS: Albumin 25% 25gram/100mL 25 GM/100 ML IV.SOLN IVC SCH ×2 (17:54→20:22)
[2017-04-02] MEDS: *HR* Morphine 2 MG/ML SYRINGE IVP PRN ×2 (00:20→05:33)
[2017-04-02 07:32] LABS: Calcium 9.6 mg/dL (8.6-10.8); Potassium 4.9 mEq/L (3.5-4.5)
[2017-04-02] MEDS: Nicotine 21 MG PATCH.TD24 TD SCH (08:26)
[2017-04-02] MEDS: Furosemide 40 MG/4 ML VIAL IVP SCH (08:27)
[2017-04-02] MEDS ORDERED: *HR* OxyCODONE/APAP 5/325 TABLET PO PRN (08:43)
[2017-04-02] MEDS ORDERED: 0.9 % Sodium Chloride 250 ML IVC PRN (08:44)
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
[2017-04-02] MEDS ORDERED: 0.9 % Sodium Chloride 2,000 ML ONE (09:14)
--- NOTE | 2017-04-02 11:01 | Nephrology Progress Note ---
Date of Encounter: 04/02/17 Time of Encounter: 10:59 - Assessment and Plan (1) Ascites Current Visit: Yes Status: Acute S/p paracentesis. Qualifiers: Ascites type: other type Qualified Code(s): R18.8 - Other ascites (2) ESRD (end stage renal disease) on dialysis Current Visit: No Status: Chronic Patient seen on dialysis. No problems. UF 5 Kg Renal diet. Renal dosing of medications. Resume home dialysis schedule upon discharge. Subjective Principal diagnosis: ESRD Interval history: Patient seen on dialysis. He is asleep. S/P paracentesis yesterday. Objective - Vital Signs Vital signs: Vital Signs Temp Pulse Resp BP Pulse Ox 04/02/17 10:50 107/57 04/02/17 10:35 108/61 04/02/17 10:20 122/69 04/02/17 10:05 108/63 04/02/17 09:50 113/63 04/02/17 09:35 128/78 04/02/17 09:20 97.9 F 20 115/71 04/02/17 06:52 97.8 F 73 18 115/69 96 04/02/17 05:05 98.2 F 77 16 117/65 97 04/02/17 00:12 98 F 84 16 141/85 97 04/01/17 20:55 98 F 60 16 143/87 97 04/01/17 16:07 97.7 F 81 16 146/87 98 04/01/17 14:25 97.7 F 16 146/78 04/01/17 14:15 116/56 04/01/17 14:00 125/73 04/01/17 13:45 138/73 04/01/17 13:30 135/70 04/01/17 13:15 140/76 04/01/17 13:00 139/77 04/01/17 12:45 137/76 04/01/17 12:30 131/75 04/01/17 12:15 139/75 04/01/17 12:00 145/82 04/01/17 11:45 138/79 04/01/17 11:30 144/78 04/01/17 11:15 146/81 04/01/17 11:00 140/80 Intake and Output 04/01/17 04/02/17 04/02/17 23:59 07:59 15:59 Intake Total 920 / 920 1680 / 1680 Output Total 100 / 100 Balance 920 / 920 -100 / -100 1680 / 1680 Intake: IV Fluids 100 / 100 Flexbumin 25 gm In 100 ml 100 / 100 @ 60 mls/hr IVC .Q1H40M MARC Rx#:[id number] Oral 820 / 820 1080 / 1080 Intake, Rinseback and 600 / 600 Flushes Output: Urine 100 / 100 Other: Meal 2 melly pudding Breakfast Percent of Meal Consumed 100% 30% Weight 133.2 kg 133.2 kg Hemodialysis Net Fluid 2095 Removed (mL) Patient Weight 04/02/17 23:59 Weight 133.2 kg - General Appearance General appearance: Present: well-developed, well-nourished EENT: Present: ATNC Additional Comments: respirations are unlabored. Cardiology: Present: edema (improved. 1+), regular rate Dialysis Vascular Access: Arteriovenous Fistula - Lab 04/01/17 01:00 04/02/17 06:25 Most recent lab results Calcium 9.6 mg/dL (8.6-10.8) 04/02/17 06:25 Consult Discharge Plan - Plan Instructions: Furosemide (By mouth), Ascites (DC) Additional Instructions: Follow-up with primary care physician within the next 7 days. Follow-up with nephrology. Be compliant with Lasix. Quit smoking Referrals: [facility] [Provider Group] (Please follow up on your next scheduled HD day) Prescriptions: Furosemide [Lasix] 80 mg PO BID #60 tablet
[2017-04-03 07:23] VITALS: BP 92/59
== END 2017-04-02 15:10 | disposition home or self-care (01) ==
LOC: 2ANU 23:44 → EMEROO 23:44 → SUATTDRO 04-01 05:49 → 2ANU 04-01 06:33 → UNDODISOB 04-02 11:30
PROVIDERS: ADMIT Pediatrics; ATTEND Internal Medicine

== ENCOUNTER 2017-04-24 22:49 | Inpatient (IN) ==
[2017-04-25 01:22] LABS: Basophils # 0.1 K/mcL (0.0-0.2); Basophils % 0.8 %; Eosinophils # 0.2 K/mcL (0.0-0.6); Eosinophils % 2.8 %; Hematocrit 37.9 % (37.5-50.1); Immature Granulocytes % 0.3 % (0-4); Lymphocytes # 1.1 K/mcL (0.6-4.6); Lymphocytes % 13.8 %; Mean Corpuscular HGB Conc 31.7 g/dL (31.6-35.5); Mean Corpuscular Hemoglobin 29.3 pg (28.0-33.3); Mean Corpuscular Volume 92.4 fL (83.0-100.0); Monocytes # 0.6 K/mcL (0.0-1.3); Neutrophils # 5.9 K/mcL (1.6-8.9); Platelet Count 178 K/mcL (140-400); Red Cell Distribution Width 15.6 % (11.5-14.5); Segmented Neutrophils % 74.3 %
[2017-04-25 01:37] LABS: Calcium 9.5 mg/dL (8.6-10.8); Potassium 5.7 mEq/L (3.5-4.5)
[2017-04-25] MEDS ORDERED: Insulin Human Regular 10 UNIT in 0.9 % Sodium Chloride 10 ML IV ONE (01:51)
[2017-04-25] MEDS ORDERED: Naloxone 0.4 MG/ML INJ IVP PRN (02:19)
[2017-04-25] MEDS ORDERED: *HR* Dextrose 50 % in Water (Syg) 50 ML SYRINGE IVP ONE (02:20)
[2017-04-25] MEDS ORDERED: Calcium Chloride 1,000 MG in 0.9 % Sodium Chloride 100 ML IVPB ONE (02:21)
[2017-04-25] MEDS ORDERED: Furosemide 40 MG/4 ML VIAL IVP ONE (02:21)
--- NOTE | 2017-04-25 02:23 | Emergency Department Note ---
Disposition Clinical Impression: Hyperkalemia Disposition: Admitted As Inpatient Condition: Critical Referrals: NONE,PCP [Primary Care Provider] - Forms: ED Satisfaction Letter General Adult HPI - General Chief complaint: ED Shortness of Breath/Dyspnea Stated complaint: CHANDLER, Abd Pain Time Seen by Provider: 04/24/17 23:06 Source: patient, EMS Limitations: no limitations Nursing Notes Reviewed: Yes Vital Signs Reviewed: Yes - History of Present Illness HPI Narrative: 31-year-old male who presents with concern for missing his dialysis. He has a history of ESRD. He was feeling not so well yesterday and ultimately skipped his dialysis. He scheduled for tomorrow morning. He is concerned today about volume overload. He has no chest pain or abnormal vital signs on arrival. Pain Scale: 8 - Related Data Home Medications Medication Instructions Recorded Confirmed No Known Home Drugs 03/20/17 04/01/17 Previous Rx's Medication Instructions Recorded Furosemide [Lasix] 80 mg PO BID #60 tablet 04/02/17 Allergies Allergy/AdvReac Type Severity Reaction Status Date / Time No Known Allergies Allergy Verified 03/10/17 11:48 All systems ED: reviewed and negative except as stated. Past Medical History - Past Medical History Medical history: Reports: cardiomyopathy, CHF, dialysis, hypertension, renal disease, other Surgical history: Reports: orthopedic, other, vascular surgery, other ( Pleurodeses, thoracentesis, paracentesis, chest tube) Psychiatric history: Reports: anxiety, depression - Social History Smoking Status: Current every day smoker Smokeless Tobacco Status: No Alcohol use: Reports: none Drug use: Reports: none Physical Exam [place] warm and dry Mucous membranes moist No acute distress Lungs clear bilaterally Regular rate and rhythm Abdomen is obese Extremities well perfused, dialysis fistula in left bicep No focal neurological deficit - General Limitations: no limitations General appearance: alert, in no apparent distress Course Vital Signs Temperature 98.2 F 04/24/17 22:50 Pulse Rate 80 04/24/17 22:50 Respiratory Rate 16 04/24/17 22:50 Blood Pressure 144/95 04/24/17 22:50 O2 Sat by Pulse Oximetry 95 04/24/17 22:50 Temperature 98.2 F 04/24/17 22:50 Pulse Rate 73 04/25/17 01:24 Respiratory Rate 24 04/25/17 01:24 Blood Pressure 141/97 04/25/17 01:24 O2 Sat by Pulse Oximetry 99 04/25/17 01:24 Oxygen Delivery Oxygen Delivery Room Air Medical Decision Making - MDM Narrative Medical decision making narrative: Noncompliance with dialysis, resulting hyperkalemia, Kayexalate ordered by hospitalist. D50 and insulin given by me. No EKG changes. Plan to admit for further evaluation and for dialysis. - Medical Records Medical records reviewed: Yes I reviewed the patient's medical records. - Lab Data Lab results reviewed: Yes I reviewed the patient's lab results. Result diagrams: 04/25/17 01:15 04/25/17 01:15 Lab Results 04/25/17 04/25/17 04/25/17 Range/Units 01:15 01:15 01:15 WBC 7.9 (4.3-11.1) K/mcL RBC 4.10 L (4.19-5.50) M/mcL Hgb 12.0 L (12.9-16.9) g/dL Hct 37.9 (37.5-50.1) % MCV 92.4 (83.0-100.0) fL MCH 29.3 (28.0-33.3) pg MCHC 31.7 (31.6-35.5) g/dL RDW 15.6 H (11.5-14.5) % Plt Count 178 (140-400) K/mcL MPV 10.0 (9.4-12.4) fL Immature Gran % 0.3 (0-4) % Seg Neutrophils % 74.3 % Lymphocytes % 13.8 % Monocytes % 8.0 % Eosinophils % 2.8 % Basophils % 0.8 % Neutrophils # 5.9 (1.6-8.9) K/mcL Lymphocytes # 1.1 (0.6-4.6) K/mcL Monocytes # 0.6 (0.0-1.3) K/mcL Eosinophils # 0.2 (0.0-0.6) K/mcL Basophils # 0.1 (0.0-0.2) K/mcL Sodium 137 (136-145) mEq/L Potassium 5.7 H (3.5-4.5) mEq/L Chloride 95 L (98-109) mEq/L Carbon Dioxide 28 (19-29) mEq/L BUN 47 H (8-26) mg/dL Creatinine 9.51 H (0.72-1.25) mg/dL Est GFR ( Amer) 8 L (> 60) Est GFR (Non-Af Amer) 6 L (> 60) BUN/Creatinine Ratio 5 L (6-26) Glucose 104 H (70-99) mg/dL Calculated Osmolality 297 (280-300) Lactic Acid 1.1 (0.5-2.2) mmol/L Calcium 9.5 (8.6-10.8) mg/dL Troponin I (0-0.03) ng/mL B-Natriuretic Peptide (0-100) pg/mL 04/25/17 04/25/17 Range/Units 01:15 01:15 WBC (4.3-11.1) K/mcL RBC (4.19-5.50) M/mcL Hgb (12.9-16.9) g/dL Hct (37.5-50.1) % MCV (83.0-100.0) fL MCH (28.0-33.3) pg MCHC (31.6-35.5) g/dL RDW (11.5-14.5) % Plt Count (140-400) K/mcL MPV (9.4-12.4) fL Immature Gran % (0-4) % Seg Neutrophils % % Lymphocytes % % Monocytes % % Eosinophils % % Basophils % % Neutrophils # (1.6-8.9) K/mcL Lymphocytes # (0.6-4.6) K/mcL Monocytes # (0.0-1.3) K/mcL Eosinophils # (0.0-0.6) K/mcL Basophils # (0.0-0.2) K/mcL Sodium (136-145) mEq/L Potassium (3.5-4.5) mEq/L Chloride (98-109) mEq/L Carbon Dioxide (19-29) mEq/L BUN (8-26) mg/dL Creatinine (0.72-1.25) mg/dL Est GFR ( Amer) (> 60) Est GFR (Non-Af Amer) (> 60) BUN/Creatinine Ratio (6-26) Glucose (70-99) mg/dL Calculated Osmolality (280-300) Lactic Acid (0.5-2.2) mmol/L Calcium (8.6-10.8) mg/dL Troponin I 0.06 H* (0-0.03) ng/mL B-Natriuretic Peptide 3156 H (0-100) pg/mL Critical Care Time Total Critical Care Time: 35 Attestation: Greater than 35 minutes of critical care time spent resuscitating this male patient suffering from hyperkalemia. He required multiple medications. He will be admitted in critical condition. This is excluding billable procedures.
[2017-04-25] MEDS ORDERED: *HR* HYDROcodone/Acet 5/325 mg TABLET PO ONE (02:26)
--- NOTE | 2017-04-25 02:29 | Internal Med History&Physical ---
Date of Encounter: 04/25/17 Time of Encounter: 02:26 Assessment and Plan (1) Hyperkalemia Current visit: Yes Status: Acute consult renal for a.m dialysis. Given abortive therapy for hyperK. Tele, close monitoring for now (2) Volume overload Current visit: No Status: Acute lasix 80mg IV once. Discussed compliance. Education Qualifiers: Hypervolemia type: unspecified Qualified Code(s): E87.70 - Fluid overload, unspecified (3) ESRD (end stage renal disease) on dialysis Current visit: No Status: Chronic HD (4) HTN (hypertension), benign Current visit: Yes Status: Acute treat with UF during HD Internal Medicine - H&P: HPI Chief complaint: Abdominal swelling pain, difficulty breathing, lower extremity swelling History of present illness: Mr. Snyder is a 31 year old male with ESRD on MWF HD with a hx of poor compliance who presents with worsening symptoms of volume overload reporting abdominal swelling pain, difficulty breathing, lower extremity swelling that got acutely worse in the last 2-3 days. His last HD session was friday and has an AV Fistula access. He reports of developing viral like prodrome several days ago with URI, sore throat, muscle aches, subjective fever that prevented him from getting dialysis. He is found to be in overload state in the ED and hyperKalemic state. Past Med Surg Social Fam HX - Past Medical History Medical history: cardiomyopathy, CHF, dialysis, hypertension, renal disease, other Psychiatric history: anxiety, depression - Past Surgical History Surgical History: orthopedic, other, vascular surgery, other (Pleurodeses, thoracentesis, paracentesis, chest tube) - Social History Smoking Status: Current every day smoker Smokeless Tobacco Status: No Alcohol use: none Drug use: none - Family History Mother Adopted: No Living Status: Still Living Hx Family Cardiac Disorders: Yes (Stroke) Hx Family Respiratory Disorders: No Hx Family Cancer: No Hx Family GI Disorders: No Hx Family Endocrine Disorder: Yes (DM) Hx Family Neuromuscular Disorders: No Hx Family Neurologic Disorders: No Hx Family HEENT Disorders: No Hx Family Autoimmune Disorders: No Father Living Status: Still Living Hx Family Cardiac Disorders: Yes (CAD) Hx Family Respiratory Disorders: No Hx Family Cancer: No Hx Family GI Disorders: No Hx Family Endocrine Disorder: Yes (Diabetes) Hx Family Neuromuscular Disorders: No Hx Family Neurologic Disorders: No Hx Family HEENT Disorders: No Hx Family Autoimmune Disorders: No Internal Medicine - H&P: Meds No Known Home Drugs 03/20/17 [History] Furosemide [Lasix] 80 mg PO BID #60 tablet 04/02/17 [Rx] Allergies No Known Allergies Allergy (Verified 03/10/17 11:48) All Systems PM: A 10-system review of systems was performed and is negative for pertinent findings except as documented above in the HPI. Review of systems: ROS 14 point review of systems reviewed as best as possible given presentation. Pertinent positive or negative as per HPI or otherwise reviewed as negative - Constitutional Vitals: Temp Pulse Resp BP Pulse Ox 98.2 F 73 24 141/97 99 04/24/17 22:50 04/25/17 01:24 04/25/17 01:24 04/25/17 01:24 04/25/17 01:24 Exam: General - AAO x 3 Psych - Appropriate affect/speech. No agitation Eyes - MERARY. Eye lids intact. No scleral icterus Heart - Sinus. RRR. S1 and S2 present. No added HS/murmurs appreciated. No elevated JVD appreciated. No calf swellings/erythema Lung - Adequate air entry b/l, No crackes/wheezes appreciated GI - Soft but distended belly with striaes. Ascites. BS+ - No CVA/suprapubic tenderness or palpable bladder distension Skin - left arm AV fistula, +3 LE edema b/l Internal Med - H&P Results - Labs CBC & Chem 7: 04/25/17 01:15 04/25/17 01:15 Labs: Short CBC 04/25/17 Range/Units 01:15 WBC 7.9 (4.3-11.1) K/mcL Hgb 12.0 L (12.9-16.9) g/dL Hct 37.9 (37.5-50.1) % Plt Count 178 (140-400) K/mcL Neutrophils # 5.9 (1.6-8.9) K/mcL BMP 04/25/17 01:15 Sodium 137 Potassium 5.7 H Chloride 95 L Carbon Dioxide 28 BUN 47 H Creatinine 9.51 H Glucose 104 H Calcium 9.5 Cardiac Enzymes 04/25/17 Range/Units 01:15 Troponin I 0.06 H* (0-0.03) ng/mL - Impressions ITS Impressions Chest X-Ray 04/24/17 23:09 IMPRESSION: 1. Stable moderate enlargement of the cardiac silhouette. No superimposed acute pulmonary abnormality. D/ / Michele Baez MD / Michele Baze MD Interpreting Provider: Michele Baez MD
[2017-04-25 05:21] LABS: Basophils # 0.1 K/mcL (0.0-0.2); Basophils % 0.6 %; Eosinophils # 0.3 K/mcL (0.0-0.6); Eosinophils % 3.6 %; Hematocrit 36.1 % (37.5-50.1); Hemoglobin 11.6 g/dL (12.9-16.9); Immature Granulocytes % 0.1 % (0-4); Lymphocytes # 0.8 K/mcL (0.6-4.6); Lymphocytes % 9.6 %; Mean Corpuscular HGB Conc 32.1 g/dL (31.6-35.5); Mean Corpuscular Hemoglobin 29.5 pg (28.0-33.3); Mean Corpuscular Volume 91.9 fL (83.0-100.0); Mean Platelet Volume 9.7 fL (9.4-12.4); Monocytes # 0.7 K/mcL (0.0-1.3); Monocytes % 8.4 %; Neutrophils # 6.6 K/mcL (1.6-8.9); Platelet Count 146 K/mcL (140-400); Red Blood Count 3.93 M/mcL (4.19-5.50); Red Cell Distribution Width 15.6 % (11.5-14.5); Segmented Neutrophils % 77.7 %
[2017-04-25 05:33] LABS: Alanine Aminotransferase < 6 Units/L (0-55); Albumin 2.9 g/dL (3.5-5.0); Albumin/Globulin Ratio 0.8 (1.1-2.2); Alkaline Phosphatase 192 Units/L (38-126); Aspartate Amino Transferase 9 Units/L (5-34); BUN/Creatinine Ratio 5 (6-26); Bilirubin,Total 0.7 mg/dL (0.2-1.2); Blood Urea Nitrogen 50 mg/dL (8-26); Calcium 9.6 mg/dL (8.6-10.8); Carbon Dioxide 28 mEq/L (19-29); Chloride 96 mEq/L (98-109); Globulin 3.8 g/dL (2.4-3.5); Glucose 94 mg/dL (70-99); Osmolality,Calculated 301 (280-300); Phosphorous 8.5 mg/dL (2.3-4.7); Potassium 5.4 mEq/L (3.5-4.5); Sodium 139 mEq/L (136-145); Total Protein 6.7 g/dL (6.0-8.3); eGFR For African Americans 8 (> 60); eGFR For Non-African Americans 6 (> 60)
[2017-04-25] MEDS: *HR* Heparin 5,000 UNIT/ML VIAL SQ SCH ×2 (06:26→17:58)
[2017-04-25] MEDS ORDERED: 0.9 % Sodium Chloride 250 ML IVC PRN (08:57)
[2017-04-25] MEDS ORDERED: 0.9 % Sodium Chloride 1,000 ML PRIME SCH (09:00)
--- NOTE | 2017-04-25 09:01 | Event Note ---
<Vishnu Cabrera - Last Filed: 04/25/17 11:43> Date of Encounter: 04/25/17 Time of Encounter: 08:10 Patient was seen and examined by me this morning. Patient admitted for volume overload due to missing his Friday dialysis because he was sick. He reports subjective fevers, Cough, congestion. He reports chest pain with cough. This pain is reproducible to palpation and only really present when coughing. He also complains of Abdominal pain/swell and BLE edema. Lungs are CTAB, Heart RRR , +S1, S2. Pt has BLE pitting edema to the mid mulligan. Patient's abdomen is distended and diffusely tender to palpation. Plan is for patient to have dialysis today. Nephrology has been consulted. Will follow their recommendations. Possible paracentesis if not enough fluid removed from dialysis. This chest pain is not cardiac in nature and likely represents muscle strain secondary to cough. <Ralph Snyder - Last Filed: 04/25/17 19:03> Date of Encounter: 04/25/17 Please see discharge summary of today.
[2017-04-25] MEDS ORDERED: *HR* OxyCODONE/APAP 5/325 TABLET PO ONE (09:23)
[2017-04-25] MEDS ORDERED: *HR* HYDROcodone/Acet 5/325 mg TABLET PO PRN (09:54)
[2017-04-25] MEDS ORDERED: Aspirin Enteric Coated 81 MG Tablet PO SCH (10:00)
[2017-04-25] MEDS ORDERED: Metoprolol XL (24 HR) Succ 50 MG TAB.ER.24H PO SCH (10:00)
[2017-04-25 12:58] LABS: Hepatitis B Surface Antibody 17.51 mIU/mL; Hepatitis B Surface Antigen Nonreactive (Nonreactive)
--- NOTE | 2017-04-25 13:40 | Discharge Summary ---
<Vishnu Cabrera - Last Filed: 04/25/17 15:15> Date of Encounter: 04/25/17 Time of Encounter: 13:36 - Discharge Diagnosis (1) Hyperkalemia Priority: Secondary Status: Resolved (2) Volume overload Priority: Primary Status: Acute Qualifiers: Hypervolemia type: unspecified Qualified Code(s): E87.70 - Fluid overload, unspecified (3) ESRD (end stage renal disease) on dialysis Priority: Secondary Status: Chronic (4) HTN (hypertension), benign Priority: Secondary Status: Acute - Discharge Medications Home Medications: Furosemide [Lasix] 80 mg PO BID #60 tablet 04/02/17 [Rx] Aspirin [Lo-Dose Aspirin EC] 81 mg PO DAILY 04/25/17 [History] Metoprolol XL (24 HR) Succ [Toprol Xl] 50 mg PO DAILY 04/25/17 [History] Sevelamer [Renvela] 1,600 mg PO TIDWM 04/25/17 [History] hydrALAZINE [HydrALAZINE] 10 mg PO Q6HR 04/25/17 [History] Allergies/Adverse Reactions: Allergies No Known Allergies Allergy (Verified 03/10/17 11:48) Procedures/tests Complete & Pending: CXR: "FINDINGS: Moderate enlargement of the cardiac silhouette is stable. There is no focal pulmonary consolidation, pleural effusion, or pneumothorax. Lobulated contour of the right hemidiaphragm is probably due to diaphragmatic eventration. XR/XR chest 1V portable IMPRESSION: 1. Stable moderate enlargement of the cardiac silhouette. No superimposed acute pulmonary abnormality." Date of admission: 04/25/17 05:35 Primary care physician: PCP NONE Consults: 04/25/17 09:00 Consult to Dialysis [CONS] ONCE Discharging clinician: Vishnu Cabrera Anticipated date of discharge: 04/25/17 - Patient Status Disposition: Home, Self-Care Condition: Fair Functional capacity at discharge: independent ambulation Overall status at discharge: patient is progressing back to baseline - Discharge Instructions Follow Up With: Roz Fisher MD [Partnered Physician] - (patient follows up at HD and uses Dr. Wynne as his PCP) Additional Instructions: Please follow up with your primary care provider within 1 week of discharge. Please take all your home medications as prescribed. Please keep all your dialysis appointments. Please return to the hospital if you have any new or worsening symptoms. - Diet and Activity Activity: resume usual activities as tolerated Diet: low salt diet Interval History: Pt reports feeling better after Dialysis today. He still had some fluid on his abdomen after dialysis. Therapeutic paracentesis performed. Patient reports feeling well after procedure. He was given albumin and was discharged home. Hospital course: Mr. Snyder is a 31 year old male c PMHx of ESRD on dialysis MWF, CHF, cardiomyopathy, htn, renal disease, anxiety, depression reported to the office c /o abd pain secondary to fluid overload secondary to missing dialysis on Friday. He reprots missing dialysis due to URI symptoms, cough, congestion, subjective fevers. Nephrology was consulted and he was dialyzed. He still had some fluid on his abdomen after dialysis. Therapeutic paracentesis performed. patient tolerated procedure and 6 L were removed. Patient was given albumin. Patient reports feeling well after procedure and was discharged home. - Time Spent with Patient Total time spent providing and/or coordinating discharge services: - Constitutional Vitals: Temp Pulse Resp BP Pulse Ox 97.7 F 76 18 153/84 97 04/25/17 09:40 04/25/17 08:25 04/25/17 09:40 04/25/17 12:55 04/25/17 08:25 General appearance: Present: A&O X 3, no acute distress, obese, answers questions appropriately - Eye Eye exam: Present: PERRL - ENT ENT exam: Present: mucous membranes moist - Respiratory Respiratory exam: Present: CTAB. Absent: rales, rhonchi, wheezes - Cardiovascular Cardiovascular exam: Present: RRR, +S1, +S2. Absent: gallop, rubs, systolic murmur - GI/Abdominal GI/Abdominal exam: Present: normal bowel sounds, soft. Absent: tenderness - Extremities Exam Extremities exam: Present: pedal edema - Neurological Exam Neurological exam: Present: alert, oriented X3. Absent: speech deficit - Psychiatric Psychiatric exam: Present: normal affect, normal mood - Skin Skin exam: Present: dry, warm <Ralph Snyder Pramod - Last Filed: 04/25/17 19:11> Date of Encounter: 04/25/17 - Discharge Diagnosis (1) Hyperkalemia Priority: Primary Status: Acute (2) Fluid overload Priority: Primary Status: Acute Qualifiers: Hypervolemia type: unspecified Qualified Code(s): E87.70 - Fluid overload, unspecified (3) Anemia in CKD (chronic kidney disease) Priority: Secondary Status: Chronic Qualifiers: Chronic kidney disease stage: on chronic dialysis Qualified Code(s): N18.6 - End stage renal disease; D63.1 - Anemia in chronic kidney disease; Z99.2 - Dependence on renal dialysis (4) Ascites Priority: Secondary Status: Chronic Qualifiers: Ascites type: other type Qualified Code(s): R18.8 - Other ascites (5) Hypertension Priority: Secondary Status: Chronic Qualifiers: Hypertension type: secondary to other renal disorders Qualified Code(s): I15.1 - Hypertension secondary to other renal disorders; N28.89 - Other specified disorders of kidney and ureter (6) Tobacco abuse Priority: Secondary Status: Chronic (7) Systolic heart failure Priority: Secondary Status: Chronic Comments: Not on CHEIKH/ARB due to renal disease Qualifiers: Heart failure chronicity: chronic Qualified Code(s): I50.22 - Chronic systolic (congestive) heart failure Date of admission: 04/25/17 05:35 Primary care physician: PCP NONE Consults: 04/25/17 09:00 Consult to Dialysis [CONS] ONCE Hospital course: Mr. Snyder is a 31 year old male - Time Spent with Patient Total time spent providing and/or coordinating discharge services: - Constitutional Vitals: Temp Pulse Resp BP Pulse Ox 98.4 F 86 18 148/92 97 04/25/17 15:53 04/25/17 15:53 04/25/17 15:53 04/25/17 15:53 04/25/17 15:53 - Attending Attestation I examined this patient and my medical decision-making was reviewed with the Resident Physician on 04/25/17. I agree with the documented findings, disposition and treatment plan as described except to the extent set forth below. Mr. Snyder was admitted for hyperkalemia. He missed dialysis and was having abd pain as well. He was dialyzed and had therapeutic paracentesis as well. He is afebrile and vitals are stable. Exam Alert. Comfortable Heart reg No wheeze Abd soft - 6 liters removed. Plan D/C home today Follow with PCP.
--- NOTE | 2017-04-25 14:38 | Electrocardiograph Report ---
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
[2017-04-25] MEDS ORDERED: 0.9 % Sodium Chloride 1,000 ML ONE (14:54)
--- NOTE | 2017-04-25 15:06 | Procedure Note ---
<Quinten Ray - Last Filed: 04/25/17 15:03> Date of procedure: 04/25/17 Pre-op diagnosis: Ascities Post-op diagnosis: same Procedure: Theraputic Paracentesis: Written consent was obtained from the patient. The abdomen was surveyed using ultrasound and a large pocket of ascitic fluid was visualized. The skin was marked. The area was cleaned and draped in the usual sterile fashion. The skin , soft tissues, and peritoneal lining were anesthetized using 10 mL of 1% lidocaine. A isabela and the skin was made. The catheter over needle apparatus was advanced through the skin and into the peritoneal lining. Clear, straw- colored fluid was obtained. The needle was removed and the catheter was advanced and the peritoneal space. The catheter was connected to vacuum container system and 6 L of clear, straw-colored fluid was removed. The catheter was then removed intact. Sterile 4 x 4 and Tegaderm dressing were applied. 50 g of 25% albumin have been ordered. The patient tolerated the procedure well, there were no immediate complications. Anesthesia: local Surgeon: Quinten Ray Watershed Coordinator: Vishnu Cabrera Pathology: none sent Condition: stable Disposition: floor <Ralph Snyder - Last Filed: 04/25/17 19:04> Attestation Statement - Attestation Attestation: I indirectly supervised this procedure and it was greater than 5 minutes.
[2017-04-25] MEDS: Furosemide 40 MG TABLET PO SCH ×2 (15:15→17:56)
[2017-04-25] MEDS: hydrALAZINE 10 MG TABLET PO SCH ×2 (15:15→17:56)
[2017-04-25] MEDS: Albumin 25% 25gram/100mL 25 GM/100 ML IV.SOLN IVC SCH ×2 (15:51→17:51)
--- NOTE | 2017-04-25 15:52 | Nephrology Consult Note ---
Date of Encounter: 04/25/17 Time of Encounter: 12:00 Assessment and Plan (1) ESRD (end stage renal disease) on dialysis Current Visit: No Status: Chronic Continue HD today with UF goal of 5kg as tolerated Will dialyze using 2k bath which should improve his hyperkalemia Hgb stable at 11.6 Phos elevated at 8.5, with phos binders resumed along with renal diet Albumin low at 2.9 likely due to poor nutrition, nepro would be recommended (2) Hyperkalemia Current Visit: Yes Status: Acute Repeat potassium at 5.4 which is actually acceptable for ESRD patient but should improve with HD today (3) Volume overload Current Visit: No Status: Acute UF from HD and paracentesis should improve this condition greatly Fluid restriction of 1liter per day advised Qualifiers: Hypervolemia type: unspecified Qualified Code(s): E87.70 - Fluid overload, unspecified (4) Dialysis patient, noncompliant Current Visit: No Status: Chronic Discussed at great length patient's history of noncompliance and the impact of his health overall: cardiac, pulmonary and renal and concern for increase mortality and patient expressed understanding and promised to improve History of Present Illness - Reason for Consult Consult date: 04/25/17 end stage renal disease Requesting physician: Rustam Baltazar - History of Present Illness 31 y o male with PMH of HTN, CHF and ESRD on HD with long history of recurrent hospital stays for volume overload due to noncomplinac presenting for admission today with complaints of increasing abdominal girth, SOB and LE edema. Pateint reports missing friday hemodialysis session due to viral illness.he was also noted with mild hyperkalemia at 5.7 receiving therapy for this. He was seen and examined on HD already feeling better due to fluid removal and is scheduled for paracentesis as well by primary team. Past Med Surg Social Fam HX - Past Medical History Medical history: cardiomyopathy, CHF, dialysis, hypertension, renal disease, other Psychiatric history: anxiety, depression - Past Surgical History Surgical History: orthopedic, other, vascular surgery, other - Social History Smoking Status: Current every day smoker Smokeless Tobacco Status: No Alcohol use: none Drug use: none - Family History Mother Adopted: No Living Status: Still Living Hx Family Cardiac Disorders: Yes (Stroke) Hx Family Respiratory Disorders: No Hx Family Cancer: No Hx Family GI Disorders: No Hx Family Endocrine Disorder: Yes (DM) Hx Family Neuromuscular Disorders: No Hx Family Neurologic Disorders: No Hx Family HEENT Disorders: No Hx Family Autoimmune Disorders: No Father Living Status: Still Living Hx Family Cardiac Disorders: Yes (CAD) Hx Family Respiratory Disorders: No Hx Family Cancer: No Hx Family GI Disorders: No Hx Family Endocrine Disorder: Yes (Diabetes) Hx Family Neuromuscular Disorders: No Hx Family Neurologic Disorders: No Hx Family HEENT Disorders: No Hx Family Autoimmune Disorders: No Medications and Allergies Furosemide [Lasix] 80 mg PO BID #60 tablet 04/02/17 [Rx] Aspirin [Lo-Dose Aspirin EC] 81 mg PO DAILY 04/25/17 [History] Metoprolol XL (24 HR) Succ [Toprol Xl] 50 mg PO DAILY 04/25/17 [History] Sevelamer [Renvela] 1,600 mg PO TIDWM 04/25/17 [History] hydrALAZINE [HydrALAZINE] 10 mg PO Q6HR 04/25/17 [History] Allergies No Known Allergies Allergy (Verified 03/10/17 11:48) Review of Systems All Systems: reviewed and no additional remarkable complaints except as stated ( 10 systems reviewed with positives noted in HPI) Exam - Vital Signs Vital signs: Initial Vital Signs Temp Pulse Resp BP Pulse Ox 98.2 F 80 16 144/95 95 04/24/17 22:50 04/24/17 22:50 04/24/17 22:50 04/24/17 22:50 04/24/17 22:50 Vital Signs - Last 8 Hours Temp Pulse Resp BP Pulse Ox 04/25/17 14:05 98 F 18 156/88 04/25/17 13:40 149/88 04/25/17 13:25 153/81 04/25/17 13:10 138/64 04/25/17 12:55 153/84 04/25/17 12:40 143/87 04/25/17 12:25 162/87 04/25/17 12:10 148/95 04/25/17 11:55 152/94 04/25/17 11:40 119/76 04/25/17 11:25 155/93 04/25/17 11:10 146/95 04/25/17 10:55 120/61 04/25/17 10:40 126/71 04/25/17 10:25 149/96 04/25/17 10:10 141/99 04/25/17 09:55 124/84 04/25/17 09:40 97.7 F 18 152/100 04/25/17 08:25 97.8 F 76 18 165/123 97 Intake and Output 04/24/17 04/25/17 04/25/17 23:59 07:59 15:59 Intake Total 600 / 600 Output Total 6100 / 6100 Balance -5500 / -5500 Intake: Oral 0 / 0 Intake, Rinseback and 600 / 600 Flushes Output: Urine 0 / 0 Total Dialysis (HD) 6100 / 6100 Output Other: Hemodialysis Net Fluid 5500 Removed (mL) - General Appearance General appearance: well-developed, well-nourished (NAD) EENT: ATNC, mucous membranes moist Neck: no JVD, supple Additional Comments: decreased BS bases bilat Cardiology: edema (LE bilat), normal S1, normal S2 - Dialysis Access Dialysis Vascular Access: Arteriovenous Fistula thrill: Yes bruit: Yes Gastrointestinal: no tenderness, no guarding, distended Integumentary: warm and dry Neurologic: no focal deficit Musculoskeletal: no deformities Psychiatric: mood/affect appropriate, cooperative Results - Lab Results 04/25/17 05:11 04/25/17 05:11 Most recent lab results Calcium 9.6 mg/dL (8.6-10.8) 04/25/17 05:11 Phosphorus 8.5 mg/dL (2.3-4.7) H 04/25/17 05:11 Consult Discharge Plan - Plan Additional Instructions: Please follow up with your primary care provider within 1 week of discharge. Please take all your home medications as prescribed. Please keep all your dialysis appointments. Please return to the hospital if you have any new or worsening symptoms. Referrals: Roz Fisher MD [Partnered Physician] - (patient follows up at HD and uses Dr. Wynne as his PCP)
[2017-04-25 19:05] VITALS: BP 146/90
== END 2017-04-25 19:45 | disposition home or self-care (01) | DRG 640 ==
LOC: 2ANU 22:49 → EMEROO 22:49 → SUATTDRO 04-25 05:35 → 2ANU 04-25 07:34
PROVIDERS: ADMIT Internal Medicine; ATTEND Internal Medicine

== ENCOUNTER 2017-05-12 02:24 | Observation (INO) ==
--- NOTE | 2017-05-12 02:56 | Emergency Department Note ---
Disposition Clinical Impression: ESRD (end stage renal disease) on dialysis, Elevated troponin, Hyperkalemia Ascites Qualifiers: Ascites type: other type Qualified Code(s): R18.8 - Other ascites Chest pain Qualifiers: Chest pain type: unspecified Qualified Code(s): R07.9 - Chest pain, unspecified Disposition: Admitted As Inpatient Condition: Good Time of Disposition: 03:51 Chest Pain HPI - General Chief Complaint: ED Chest Pain Stated Complaint: chest discomfort/CHANDLER/missed dialysis Time Seen by Provider: 05/12/17 02:25 Source: patient, EMS Mode of arrival: EMS Limitations: no limitations Vital Signs Reviewed: Yes Nursing Notes Reviewed: Yes - History of Present Illness HPI Narrative: 31-year-old male pack pack per day smoker, end-stage renal disease Friday, hypertension, and cirrhosis presents to the ED via EMS for chest pain and difficulty breathing. Symptoms started half an hour prior to arrival at 2 AM. Pain is located in the midsternum nonradiating with associated shortness of breath. He is also complaining of some abdominal bloating. He missed his dialysis on Friday due to being evaluated at another hospital for recent fall. He is complaining of some left hip pain that is lingering from the injury. He reports image showed no acute fracture. His paralegal legal secretary is Dr. Wynne. He is scheduled for dialysis Friday afternoon 1400. His chest pain was initially 8 of 10 currently 6 of 10. He say he had a argument with his mother prior to the symptoms. He does not believe this is the reason for it. Denies any history of cardiac evaluation or cardiac ischemic disease. He makes minimal urine. Denies any fever, recent illness, cough. Chest pain workup initiated. Severity scale (1-10): 8 - Related Data Home Medications Medication Instructions Recorded Confirmed Aspirin [Lo-Dose Aspirin EC] 81 mg PO DAILY 04/25/17 04/25/17 Metoprolol XL (24 HR) Succ [Toprol 50 mg PO DAILY 04/25/17 04/25/17 Xl] Sevelamer [Renvela] 1,600 mg PO TIDWM 04/25/17 04/25/17 hydrALAZINE [HydrALAZINE] 10 mg PO Q6HR 04/25/17 04/25/17 Previous Rx's Medication Instructions Recorded Furosemide [Lasix] 80 mg PO BID #60 tablet 04/02/17 Allergies Allergy/AdvReac Type Severity Reaction Status Date / Time No Known Allergies Allergy Verified 03/10/17 11:48 All systems ED: reviewed and negative except as stated. Review of Systems: As Per HPI Constitutional: Denies: fever, chills Cardiovascular: Reports: chest pain. Denies: dyspnea on exertion Respiratory: Reports: dyspnea. Denies: cough Gastrointestinal: Reports: abdominal pain, nausea. Denies: vomiting, diarrhea Genitourinary: Denies: urgency, dysuria, hematuria Musculoskeletal: Reports: arthralgia (Left hip). Denies: back pain, neck pain Integumentary: Denies: rash, abrasion Neurological: Denies: headache, weakness, numbness Chest Pain PMH - Past Medical History Medical history: Reports: cardiomyopathy, CHF, dialysis, hypertension, liver disease, renal disease, other Surgical history: Reports: orthopedic, other, vascular surgery, other Psychiatric history: Reports: anxiety, depression - Social History Smoking Status: Current every day smoker Alcohol use: Reports: none Drug use: Reports: none Physical Exam - General Limitations: no limitations General appearance: alert, in no apparent distress, obese - Head Head exam: atraumatic - Eye Eye exam: Present: normal appearance, PERRL, EOMI. Absent: scleral icterus - ENT ENT exam: normal exam, normal oropharynx, mucous membranes moist - Neck Neck exam: Present: normal inspection, full ROM, trachea midline - Chest Chest inspection: Present: normal inspection, symmetric chest wall rise, tenderness (midsternum). Absent: rash - Respiratory Respiratory exam: Present: normal lung sounds bilaterally. Absent: respiratory distress, wheezes - Cardiovascular Cardiovascular exam: Present: regular rate, normal rhythm, normal heart sounds. Absent: systolic murmur, diastolic murmur - Abdominal Exam Abdominal exam: Present: soft (obese), Non-Tender, normal bowel sounds, ascites. Absent: tenderness, distention, guarding, rebound, rigidity, Velazquez's sign, Rovsing's sign, tenderness at McBurney's Point - Extremities Exam Extremities exam: Present: normal inspection, full ROM, normal capillary refill , other (AV fistula in the left upper arm, thrill palpated and bruit auscultated ). Absent: tenderness - Neurological Exam Neurological exam: Present: alert, oriented X3 - Psychiatric Psychiatric exam: Present: normal affect, normal mood - Skin Skin exam: Present: warm, dry, normal color, other (Multiple excoriations to the bilateral lower arms, admits to picking due to anxiety) Course Course Narrative: 31-year-old male history of end-stage renal disease, hypertension and cirrhosis presented with chest discomfort. Symptoms started half hour prior to arrival. He has some associated difficulty breathing and abdominal pain. On exam he appears in no acute distress. He is hypertensive on arrival. He is afebrile. Abdomen is large and obese with ascites, no significant tenderness or distention it is otherwise soft. Low concern for SBP. Reports recent paracentesis 2 weeks ago 7 L removal. Chest pain workup initiated. - Reevaluation(s) Reevaluation #1: Patient's troponin is elevated 0.10. It is chronically elevated in past but this is the highest it has been. His creatinine is also elevated 10.6. His potassium is also elevated 6.2. EKG does show some increase weakness to his T waves compared to prior. He has missed his last dialysis appointment. His labs or otherwise unremarkable. EKG does not show any acute ischemic changes. He will likely need admission for his dialysis due to the elevated potassium and troponin. Patient has taken his 81 mg aspirin yesterday. Will give him a gram of calcium gluconate as well as dextrose and 10 unit insulin. Impression is chest pain, elevated troponin, end-stage renal disease, hyperkalemia Time: 03:36 Reevaluation #2: Informed no critical beds available. Patient will be ED hold. Time: 04:18 - Consultations Consultation #1: Spoke to on-call nephrology Dr. Guevara, he will consult on the floor for dialysis later today. He is aware of the electrolyte abnormality and creatinine function. No further orders at this time. Does not require emergent hemodialysis at this time. Time: 03:45 Consultation #2: Spoke with on-call hospitalist nick Cantrell to admit for chest pain, elevated troponin, ESRD, hyperkalemia. No further orders at this time Time: 04:02 Vital Signs Temperature 98.2 F 05/12/17 02:25 Pulse Rate 92 05/12/17 02:25 Respiratory Rate 20 05/12/17 02:25 Blood Pressure 176/120 05/12/17 02:25 O2 Sat by Pulse Oximetry 98 05/12/17 02:25 Temperature 98.2 F 05/12/17 02:25 Pulse Rate 87 05/12/17 04:16 Respiratory Rate 18 05/12/17 04:16 Blood Pressure 160/116 05/12/17 04:16 O2 Sat by Pulse Oximetry 96 05/12/17 04:16 Oxygen Delivery Oxygen Delivery Room Air Chest Pain - Medical Records Medical records reviewed: Yes I reviewed the patient's medical records. - Lab Data Lab results reviewed: Yes I reviewed the patient's lab results. Result diagrams: 05/12/17 02:42 05/12/17 02:42 Lab Results 05/12/17 05/12/17 05/12/17 Range/Units 02:42 02:42 02:42 WBC 8.3 (4.3-11.1) K/mcL RBC 3.73 L (4.19-5.50) M/mcL Hgb 10.8 L (12.9-16.9) g/dL Hct 34.2 L (37.5-50.1) % MCV 91.7 (83.0-100.0) fL MCH 29.0 (28.0-33.3) pg MCHC 31.6 (31.6-35.5) g/dL RDW 15.6 H (11.5-14.5) % Plt Count 180 (140-400) K/mcL MPV 10.5 (9.4-12.4) fL Immature Gran % 0.4 (0-4) % Seg Neutrophils % 71.1 % Lymphocytes % 15.6 % Monocytes % 8.8 % Eosinophils % 3.3 % Basophils % 0.8 % Neutrophils # 5.9 (1.6-8.9) K/mcL Lymphocytes # 1.3 (0.6-4.6) K/mcL Monocytes # 0.7 (0.0-1.3) K/mcL Eosinophils # 0.3 (0.0-0.6) K/mcL Basophils # 0.1 (0.0-0.2) K/mcL Immature Plt Fraction 2.9 (1.1-6.1) % Sodium 136 (136-145) mEq/L Potassium 6.2 H (3.5-4.5) mEq/L Chloride 99 (98-109) mEq/L Carbon Dioxide 20 (19-29) mEq/L BUN 75 H (8-26) mg/dL Creatinine 10.26 H (0.72-1.25) mg/dL Est GFR ( Amer) 7 L (> 60) Est GFR (Non-Af Amer) 6 L (> 60) BUN/Creatinine Ratio 7 (6-26) Glucose 87 (70-99) mg/dL Calculated Osmolality 304 H (280-300) Calcium 9.9 (8.6-10.8) mg/dL Total Bilirubin 0.7 (0.2-1.2) mg/dL Direct Bilirubin 0.3 (0.0-0.5) mg/dL Indirect Bilirubin 0.4 (0.0-1.2) mg/dL AST 8 (5-34) Units/L ALT 7 (0-55) Units/L Alkaline Phosphatase 179 H (38-126) Units/L Troponin I 0.10 H* (0-0.03) ng/mL Serum Total Protein 6.7 (6.0-8.3) g/dL Albumin 3.0 L (3.5-5.0) g/dL Globulin 3.7 H (2.4-3.5) g/dL Albumin/Globulin Ratio 0.8 L (1.1-2.2) Lipase 18 (8-78) Units/L - Radiology Data Radiology results reviewed: Yes I reviewed the patient's radiology results. Chest X-Ray 05/12/17 02:53 IMPRESSION: Small right pleural effusion with mild pulmonary vascular congestion. Cardiomegaly. D/ / Jaquelin Funes MD / Jaquelin Funes MD Interpreting Provider: Jaquelin Funes MD - EKG Data EKG attestation: Yes I reviewed and interpreted this EKG. EKG results narrative: EKG performed 023 normal sinus rhythm 93 bpm, normal axis, no ST elevation or depression, T wave inversion in lateral limb leads. Intervals are within normal limits. T waves appear more hyper acute consistent with his elevated compared to prior performed on 04/25/2017. Findings are otherwise consistent. No acute ischemic changes at this time. Heart Score - Score History: Slightly Suspicious EKG: Non Specific repolarisation Disturbance Age: Less than 45 Risk Factors: 1-2 risk factors Troponin: Less than normal limit HEART Score Total: 2 Attestation Statement - Attestation Attestation: I personally interviewed and examined this patient and my medical decision- making was reviewed with the Resident Physician, Dr. Grove. I agree with the documented findings, disposition and treatment plan as described except to the extent set forth below. Patient is a 31-year-old white male with a history of end-stage renal disease on hemodialysis Friday who [facility] with complaints of chest pain and shortness of breath. Patient has a history of diabetes mellitus hypertension hyperlipidemia but no prior cardiac testing. I agree patient's physical exam findings as documented. Patient's EKG is negative for any acute ischemic changes although he does appear to have marked peaked T waves then his comparison EKG from the past. Patient lab evaluation shows evidence of his end-stage renal disease with elevated BUN/creatinine and also hyperkalemia with a potassium of 6.2. Patient will be continued on a cardiac rn, administered calcium gluconate as well as insulin and D50. Initial troponin is elevated but this is chronically the case with his end-stage renal disease. We will admit the patient for further evaluation of chest pain. We also spoke with his paralegal legal secretary said that the patient can be dialyzed first and this morning due to his elevated potassium. We discussed the case with the hospitalist who accepts the patient for admission for further evaluation and management.
[2017-05-12] MEDS ORDERED: Ondansetron 4 MG/2 ML VIAL IVP ONE ×2 (03:00→04:34)
[2017-05-12] MEDS ORDERED: *HR* Morphine 2 MG/ML SYRINGE IVP ONE ×2 (03:00→04:17)
[2017-05-12 03:01] LABS: Basophils # 0.1 K/mcL (0.0-0.2); Basophils % 0.8 %; Eosinophils # 0.3 K/mcL (0.0-0.6); Eosinophils % 3.3 %; Hematocrit 34.2 % (37.5-50.1); Hemoglobin 10.8 g/dL (12.9-16.9); Immature Granulocytes % 0.4 % (0-4); Immature Platelets 2.9 % (1.1-6.1); Lymphocytes # 1.3 K/mcL (0.6-4.6); Lymphocytes % 15.6 %; Mean Corpuscular HGB Conc 31.6 g/dL (31.6-35.5); Mean Corpuscular Volume 91.7 fL (83.0-100.0); Mean Platelet Volume 10.5 fL (9.4-12.4); Monocytes # 0.7 K/mcL (0.0-1.3); Monocytes % 8.8 %; Neutrophils # 5.9 K/mcL (1.6-8.9); Platelet Count 180 K/mcL (140-400); Red Blood Count 3.73 M/mcL (4.19-5.50); Red Cell Distribution Width 15.6 % (11.5-14.5); Segmented Neutrophils % 71.1 %
[2017-05-12 03:14] LABS: Albumin/Globulin Ratio 0.8 (1.1-2.2); Bilirubin,Direct 0.3 mg/dL (0.0-0.5); Bilirubin,Indirect 0.4 mg/dL (0.0-1.2); Bilirubin,Total 0.7 mg/dL (0.2-1.2); Calcium 9.9 mg/dL (8.6-10.8); Globulin 3.7 g/dL (2.4-3.5); Potassium 6.2 mEq/L (3.5-4.5); Total Protein 6.7 g/dL (6.0-8.3)
[2017-05-12] MEDS ORDERED: *HR* Dextrose 50 % in Water (Syg) 50 ML SYRINGE IVP ONE (03:26)
[2017-05-12] MEDS ORDERED: Insulin Human Regular 10 UNIT in 0.9 % Sodium Chloride 10 ML IV ONE (03:26)
[2017-05-12] MEDS ORDERED: Calcium Gluconate 1,000 MG in D5% in Water 100 ML IVPB ONE (03:26)
[2017-05-12] MEDS ORDERED: *HR* Morphine 2 MG/ML SYRINGE IVP PRN (04:33)
[2017-05-12] MEDS ORDERED: Acetaminophen 325 MG TABLET PO PRN (04:33)
[2017-05-12] MEDS ORDERED: Naloxone 0.4 MG/ML INJ IVP PRN (04:33)
[2017-05-12] MEDS ORDERED: Ondansetron 4 MG/2 ML VIAL IVP PRN (04:33)
--- NOTE | 2017-05-12 05:29 | Internal Med History&Physical ---
Date of Encounter: 05/12/17 Time of Encounter: 04:00 Assessment and Plan (1) Tobacco abuse Current visit: No Status: Chronic Smoking cessation education. Patient said he does not need nicotine patch. (2) ESRD (end stage renal disease) on dialysis Current visit: No Status: Chronic On hemodialysis. Patient has a signs of fluid overload because of missing hemodialysis. Nephrology consult was informed that by ER physician. We will start hemodialysis after nephrology sees patient. (3) Elevated troponin Current visit: No Status: Acute Patient has a chronic elevated troponin. However, patient has chest pain this time. Need to rule out ACS. We will check 3 sets of troponin. (4) Hypertension Current visit: No Status: Chronic Continue home medications Qualifiers: Hypertension type: secondary to other renal disorders Qualified Code(s): I15.1 - Hypertension secondary to other renal disorders; N28.89 - Other specified disorders of kidney and ureter (5) Acute on chronic systolic heart failure Current visit: No Status: Acute Patient has shortness of breath, increased belly girth and leg swelling. he has a history of systolic CHF. - We will give patient Lasix 40 mg IV once. - We will consult nephrology to arrange hemodialysis. (6) DVT prophylaxis Current visit: No Status: Acute Heparin subcutaneously. (7) Hyperkalemia Current visit: No Status: Acute Treated with insulin and glucose and calcium in emergency room. No EKG changes. Continue close monitor potassium level. Patient will have hemodialysis Today Which Will Improve hyperkalemia. (8) Chest pain Current visit: No Status: Acute Patient has atypical chest pain. However, he is at high risk of CAD because of end-stage renal disease. - We will place patient with continuous cardiac monitoring. - We will check 3 sets of troponin. - Check echocardiogram. Qualifiers: Chest pain type: precordial pain Qualified Code(s): R07.2 - Precordial pain Internal Medicine - H&P: HPI Chief complaint: Chest the pain and the shortness of breath Admitted From: Home Plans for Post Hospital Care: Home History of present illness: Mr. Snyder is a 31 year old male with history of end-stage renal disease on hemodialysis, systolic CHF with EF 25-30% presented to emergency room for chest pain and shortness of breath. Patient has missed his hemodialysis on Friday. Patient said he started chest pain in this morning, around 1 AM. Patient's daughter the chest pain is due to his anxiety. The pain is located on the mid chest, 8 out of 10, sharp, no radiation. Patient has shortness of breath, nausea. But he denies vomiting or diaphoresis. Patient has increased abdominal girth and leg swelling as well. Past Med Surg Social Fam HX - Past Medical History Medical history: cardiomyopathy, CHF, dialysis, hypertension, liver disease, renal disease, other Psychiatric history: anxiety, depression - Past Surgical History Surgical History: orthopedic, other, vascular surgery, other - Social History Smoking Status: Current every day smoker Smokeless Tobacco Status: No Alcohol use: none Drug use: none - Family History Mother Adopted: No Living Status: Still Living Hx Family Cardiac Disorders: Yes (Stroke) Hx Family Respiratory Disorders: No Hx Family Cancer: No Hx Family GI Disorders: No Hx Family Endocrine Disorder: Yes (DM) Hx Family Neuromuscular Disorders: No Hx Family Neurologic Disorders: No Hx Family HEENT Disorders: No Hx Family Autoimmune Disorders: No Father Living Status: Still Living Hx Family Cardiac Disorders: Yes (CAD) Hx Family Respiratory Disorders: No Hx Family Cancer: No Hx Family GI Disorders: No Hx Family Endocrine Disorder: Yes (Diabetes) Hx Family Neuromuscular Disorders: No Hx Family Neurologic Disorders: No Hx Family HEENT Disorders: No Hx Family Autoimmune Disorders: No Internal Medicine - H&P: Meds Furosemide [Lasix] 80 mg PO BID #60 tablet 04/02/17 [Rx] Aspirin [Lo-Dose Aspirin EC] 81 mg PO DAILY 04/25/17 [History] Metoprolol XL (24 HR) Succ [Toprol Xl] 50 mg PO DAILY 04/25/17 [History] Sevelamer [Renvela] 1,600 mg PO TIDWM 04/25/17 [History] hydrALAZINE [HydrALAZINE] 10 mg PO Q6HR 04/25/17 [History] 3 Allergy/AdvReac Type Severity Reaction Status Date / Time No Known Allergies Allergy Verified 03/10/17 11:48 All Systems PM: A 10-system review of systems was performed and is negative for pertinent findings except as documented above in the HPI. - Constitutional Vitals: Temp Pulse Resp BP Pulse Ox 98.2 F 87 18 160/116 96 05/12/17 02:25 05/12/17 04:16 05/12/17 04:16 05/12/17 04:16 05/12/17 04:16 General appearance: Present: A&O X 3, no acute distress, answers questions appropriately - Head Head exam: Present: atraumatic, normocephalic - Eye Eye exam: Present: PERRL, conjuntiva pink, sclera anicteric Pupils: Present: PERRL - Neck Neck exam general surgery: Present: supple, trachea midline. Absent: lymphadenopathy - Respiratory Respiratory exam: Present: CTAB. Absent: accessory muscle use, rales, rhonchi, wheezes - Cardiovascular Cardiovascular exam: Present: RRR, +S1, +S2. Absent: diastolic murmur, gallop, rubs, systolic murmur - GI/Abdominal GI/Abdominal exam: Present: normal bowel sounds, soft, no peritoneal signs. Absent: distended, tenderness - Extremities Exam Extremities exam: Present: pedal edema (Pedal edema bilaterally), warm, radial pulses palpable and symmetrical. Absent: calf tenderness, cyanotic - Neurological Exam Neurological exam: Present: CN II-XII intact, oriented X3, no focal deficits. Absent: pronater drift, facial droop, speech deficit - Skin Skin exam: Present: dry, intact Internal Med - H&P Results - Labs CBC & Chem 7: 05/12/17 02:42 05/12/17 02:42 - EKG Data -: EKG Interpreted by Myself EKG shows normal: sinus rhythm Rate: normal
[2017-05-12] MEDS ORDERED: Furosemide 40 MG/4 ML VIAL IVP ONE (05:30)
[2017-05-12] MEDS ORDERED: *HR* Heparin 5,000 UNIT/ML VIAL SQ SCH (06:00)
--- NOTE | 2017-05-12 07:54 | Event Note ---
<Vishnu Cabrera - Last Filed: 05/12/17 08:01> Date of Encounter: 05/12/17 Time of Encounter: 07:30 31 yo M well known to the hospital for missing dialysis. Patient reports he had a trip and fall which caused him hip pain which caused him to miss his dialysis on Friday. Patient was complaining of chest pain and SOB. Patient reports Chest pain has resolved. He reports still being a little short of breath and feeling like hs stomach is distended and feeling like he needs fluid off. Exam: Heart RRR no m/g/r; Lungs CTAB no W/r/r; Abd, Soft obese, normal bowel sounds, ; Extremities, BLE edema. He will undergo dialysis today. Depending on patient's exam post dialysis will consider therapeutic paracentesis. Possibly able to be discharged later today if feeling better. <Andriy Wiseman - Last Filed: 05/12/17 18:37> Date of Encounter: 05/12/17 I examined this patient and my medical decision-making was reviewed with the Resident Physician. I agree with the documented findings, disposition and treatment plan as described except to the extent set forth below.
[2017-05-12] MEDS ORDERED: Aspirin Enteric Coated 81 MG Tablet PO SCH (09:00)
[2017-05-12] MEDS ORDERED: 0.9 % Sodium Chloride 250 ML IVC PRN (09:32)
--- NOTE | 2017-05-12 09:52 | Electrocardiograph Report ---
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
--- NOTE | 2017-05-12 10:45 | Nephrology Consult Note ---
Date of Encounter: 05/12/17 Time of Encounter: 10:44 Assessment and Plan (1) Chest pain Current Visit: Yes Status: Acute We will defer management to primary care team Qualifiers: Chest pain type: other chest pain Qualified Code(s): R07.89 - Other chest pain; R07.8 - Other chest pain (2) Hyperkalemia Current Visit: Yes Status: Acute This will be addressed with dialysis. (3) ESRD (end stage renal disease) on dialysis Current Visit: Yes Status: Chronic Patient received dialysis Friday. He missed his last dialysis session. We will perform dialysis today. I did see him on dialysis. Patient should receive a renal diet. Adjust medications for renal function. (4) HTN (hypertension), benign Current Visit: No Status: Acute Blood pressure should improve after dialysis. History of Present Illness - Reason for Consult Consult date: 05/12/17 - Chief Complaint ESRD Dyspnea - History of Present Illness Mr. Snyder is a patient well known to the [facility] with ESRD and on HD MWF who presents with dyspnea after missing dialysis. He reports that he had problems with his hip and was unable to make his dialysis session on Friday. Today he felt too dyspneic to wait for dialysis and came to the emergency department where he was found to have volume overload and dyspnea and was admitted for urgent dialysis. Past Med Surg Social Fam HX - Past Medical History Medical history: cardiomyopathy, CHF, dialysis, hypertension, liver disease, renal disease, other Psychiatric history: anxiety, depression - Past Surgical History Surgical History: orthopedic, other, vascular surgery, other - Social History Smoking Status: Current every day smoker Smokeless Tobacco Status: No Alcohol use: none Drug use: none - Family History Mother Adopted: No Living Status: Still Living Hx Family Cardiac Disorders: Yes (Stroke) Hx Family Respiratory Disorders: No Hx Family Cancer: No Hx Family GI Disorders: No Hx Family Endocrine Disorder: Yes (DM) Hx Family Neuromuscular Disorders: No Hx Family Neurologic Disorders: No Hx Family HEENT Disorders: No Hx Family Autoimmune Disorders: No Father Living Status: Still Living Hx Family Cardiac Disorders: Yes (CAD) Hx Family Respiratory Disorders: No Hx Family Cancer: No Hx Family GI Disorders: No Hx Family Endocrine Disorder: Yes (Diabetes) Hx Family Neuromuscular Disorders: No Hx Family Neurologic Disorders: No Hx Family HEENT Disorders: No Hx Family Autoimmune Disorders: No Medications and Allergies Furosemide [Lasix] 80 mg PO BID #60 tablet 04/02/17 [Rx] Aspirin [Lo-Dose Aspirin EC] 81 mg PO DAILY 04/25/17 [History] Metoprolol XL (24 HR) Succ [Toprol Xl] 50 mg PO DAILY 04/25/17 [History] Sevelamer [Renvela] 1,600 mg PO TIDWM 04/25/17 [History] hydrALAZINE [HydrALAZINE] 10 mg PO Q6HR 04/25/17 [History] 3 Allergy/AdvReac Type Severity Reaction Status Date / Time No Known Allergies Allergy Verified 03/10/17 11:48 Review of Systems All Systems: reviewed and no additional remarkable complaints except as stated ( As documented in history of present illness) Exam - Vital Signs Vital signs: Initial Vital Signs Temp Pulse Resp BP Pulse Ox 98.2 F 92 20 176/120 98 05/12/17 02:25 05/12/17 02:25 05/12/17 02:25 05/12/17 02:25 05/12/17 02:25 Vital Signs - Last 8 Hours Temp Pulse Resp BP Pulse Ox 05/12/17 07:37 97.7 F 82 18 147/98 96 05/12/17 07:00 18 145/106 05/12/17 05:27 83 18 135/98 96 Intake and Output 05/11/17 05/12/17 05/12/17 23:59 07:59 15:59 Intake Total 110 / 110 Balance 110 / 110 Intake: IV Fluids 110 / 110 Calcium Gluconate 1,000 110 / 110 MG In Dextrose 5% 100 ML @ 220 mls/hr IVPB ONCE ONE Rx#:[id number] Other: Blood Glucose* 140 - General Appearance General appearance: well-developed, well-nourished, obese EENT: ATNC Neck: supple Respiratory: course breath sounds Cardiology: edema, regular rate, regular rhythm - Dialysis Access Dialysis Vascular Access: Arteriovenous Fistula Gastrointestinal: no tenderness Integumentary: warm and dry Neurologic: alert and oriented x3 Psychiatric: mood/affect appropriate Results - Lab Results 05/12/17 02:42 05/12/17 02:42 Most recent lab results Calcium 9.9 mg/dL (8.6-10.8) 05/12/17 02:42 Consult Discharge Plan - Plan Additional Instructions: Please follow up with your primary care provider within 1 week of discharge. Please follow up with your [employer] [employer]. Please keep all your dialysis appointments no matter what. Please take all your home medications as prescribed. Please return to the hospital if you experience any new or worsening symptoms. Referrals: NONE,PCP [Primary Care Provider] -
--- NOTE | 2017-05-12 11:23 | Discharge Summary ---
<Vishnu Cabrera - Last Filed: 05/12/17 14:03> Date of Encounter: 05/12/17 Time of Encounter: 14:03 - Discharge Diagnosis (1) Tobacco abuse Priority: Secondary Status: Chronic (2) ESRD (end stage renal disease) on dialysis Priority: Primary Status: Chronic (3) Elevated troponin Priority: Secondary Status: Acute (4) Hypertension Priority: Secondary Status: Chronic Qualifiers: Hypertension type: secondary to other renal disorders Qualified Code(s): I15.1 - Hypertension secondary to other renal disorders; N28.89 - Other specified disorders of kidney and ureter (5) Acute on chronic systolic heart failure Priority: Secondary Status: Acute (6) Hyperkalemia Priority: Secondary Status: Acute (7) Chest pain Priority: Secondary Status: Acute Qualifiers: Chest pain type: other chest pain Qualified Code(s): R07.89 - Other chest pain; R07.8 - Other chest pain - Discharge Medications Home Medications: Furosemide [Lasix] 80 mg PO BID #60 tablet 04/02/17 [Rx] Aspirin [Lo-Dose Aspirin EC] 81 mg PO DAILY 04/25/17 [History] Metoprolol XL (24 HR) Succ [Toprol Xl] 50 mg PO DAILY 04/25/17 [History] Sevelamer [Renvela] 1,600 mg PO TIDWM 04/25/17 [History] hydrALAZINE [HydrALAZINE] 10 mg PO Q6HR 04/25/17 [History] Allergies/Adverse Reactions: 3 Allergy/AdvReac Type Severity Reaction Status Date / Time No Known Allergies Allergy Verified 03/10/17 11:48 Procedures/tests Complete & Pending: Procedures Performed prior 72 hours Category Date Time Status EV echocardiogram Routine Y 05/12/17 04:36 Ordered CXR: FINDINGS: Cardiomegaly is noted. Mild pulmonary vascular congestion is noted. There is a small right-sided pleural effusion. There is no pneumothorax. There is no focal consolidation. XR/XR chest 1V portable IMPRESSION: Small right pleural effusion with mild pulmonary vascular congestion. Cardiomegaly. Date of admission: 05/12/17 04:22 Primary care physician: PCP NONE Consults: 05/12/17 09:45 Consult to Dialysis [CONS] ONCE Discharging clinician: Vishnu Cabrera Anticipated date of discharge: 05/12/17 - Patient Status Disposition: Home, Self-Care Condition: Good Functional capacity at discharge: uses cane/walker Overall status at discharge: patient is progressing back to baseline - Discharge Instructions Follow Up With: NONE,PCP [Primary Care Provider] - Additional Instructions: Please follow up with your primary care provider within 1 week of discharge. Please follow up with your [employer]. Please keep all your dialysis appointments no matter what. Please take all your home medications as prescribed. Please return to the hospital if you experience any new or worsening symptoms. - Diet and Activity Activity: resume usual activities as tolerated Diet: low salt diet, other (Cardiac and renal diet) Interval History: Patient has returned form dialysis and is feeling better Hospital course: Mr. Snyder is a 31 year old male c PMHX of end-stage renal disease on hemodialysis, systolic CHF with EF 25-30%, HTN, Liver disease who represented to the hospital for Chest pain, SOB and anxiety. Patient was evaluated with EKG which showed no acute changes and serial tropnins. Patient has chronically elevated troponins. Patient missed dialysis on Friday secondary to mechanical trip and fall resulting in hip pain. Patient went to [facility] and X rays were negative. They report drug seeking behavior. Patient was dialyzed here and sent home. - Time Spent with Patient Total time spent providing and/or coordinating discharge services: - Constitutional Vitals: Temp Pulse Resp BP Pulse Ox 97.7 F 82 18 147/98 96 05/12/17 07:37 05/12/17 07:37 05/12/17 07:37 05/12/17 07:37 05/12/17 07:37 General appearance: Present: A&O X 3, no acute distress, answers questions appropriately - Head Head exam: Present: atraumatic, normocephalic - Eye Eye exam: Present: PERRL, sclera anicteric - ENT ENT exam: Present: mucous membranes moist - Neck Neck exam general surgery: Present: supple, trachea midline - Respiratory Respiratory exam: Present: CTAB. Absent: rales, rhonchi, wheezes - Cardiovascular Cardiovascular exam: Present: RRR, +S1, +S2. Absent: diastolic murmur, gallop, rubs, systolic murmur - GI/Abdominal GI/Abdominal exam: Present: normal bowel sounds, soft. Absent: tenderness - Extremities Exam Extremities exam: Present: pedal edema. Absent: calf tenderness, cyanotic - Neurological Exam Neurological exam: Present: alert, oriented X3. Absent: facial droop, speech deficit - Psychiatric Psychiatric exam: Present: normal affect, normal mood - Skin Skin exam: Present: dry, intact, warm <Ivone,Andriy P - Last Filed: 05/12/17 18:37> Date of Encounter: 05/12/17 Date of admission: 05/12/17 04:22 Primary care physician: PCP NONE Consults: 05/12/17 09:45 Consult to Dialysis [CONS] ONCE Hospital course: Mr. Snyder is a 31 year old male - Time Spent with Patient Total time spent providing and/or coordinating discharge services: - Constitutional Vitals: Temp Pulse Resp BP Pulse Ox 98.1 F 82 18 141/73 96 05/12/17 14:30 05/12/17 07:37 05/12/17 14:30 05/12/17 14:30 05/12/17 07:37 - Attending Attestation I examined this patient and my medical decision-making was reviewed with the Resident Physician. I agree with the documented findings, disposition and treatment plan as described except to the extent set forth below.
[2017-05-12 17:03] VITALS: BP 141/73
== END 2017-05-12 16:20 | disposition home or self-care (01) ==
LOC: EMEROO 02:24 → 2ANU 02:24
PROVIDERS: ADMIT Internal Medicine; ATTEND Internal Medicine

== ENCOUNTER 2017-05-21 18:54 | Observation (INO) ==
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
[2017-05-21 19:43] LABS: Basophils % 0.8 %; Eosinophils # 0.2 K/mcL (0.0-0.6); Eosinophils % 4.6 %; Hematocrit 32.3 % (37.5-50.1); Hemoglobin 10.2 g/dL (12.9-16.9); Immature Granulocytes % 0.4 % (0-4); Lymphocytes # 0.9 K/mcL (0.6-4.6); Mean Corpuscular HGB Conc 31.6 g/dL (31.6-35.5); Mean Corpuscular Volume 91.8 fL (83.0-100.0); Mean Platelet Volume 9.9 fL (9.4-12.4); Monocytes # 0.6 K/mcL (0.0-1.3); Monocytes % 10.6 %; Neutrophils # 3.4 K/mcL (1.6-8.9); Platelet Count 158 K/mcL (140-400); Red Blood Count 3.52 M/mcL (4.19-5.50); Red Cell Distribution Width 15.4 % (11.5-14.5); Segmented Neutrophils % 65.6 %
[2017-05-21 20:00] LABS: Albumin 2.7 g/dL (3.5-5.0); Albumin/Globulin Ratio 0.7 (1.1-2.2); Alkaline Phosphatase 164 Units/L (38-126); Aspartate Amino Transferase 9 Units/L (5-34); BUN/Creatinine Ratio 5 (6-26); Bilirubin,Total 0.7 mg/dL (0.2-1.2); Blood Urea Nitrogen 24 mg/dL (8-26); Calcium 9.8 mg/dL (8.6-10.8); Carbon Dioxide 34 mEq/L (19-29); Chloride 97 mEq/L (98-109); Globulin 3.9 g/dL (2.4-3.5); Glucose 98 mg/dL (70-99); Osmolality,Calculated 294 (280-300); Potassium 3.7 mEq/L (3.5-4.5); Sodium 140 mEq/L (136-145); Total Protein 6.6 g/dL (6.0-8.3); eGFR For African Americans 16 (> 60); eGFR For Non-African Americans 14 (> 60)
[2017-05-21 20:09] LABS: Alanine Aminotransferase < 6 Units/L (0-55)
[2017-05-21] MEDS: *HR* Morphine 2 MG/ML SYRINGE IVP ONE ×2 (20:09→21:03)
[2017-05-21] MEDS ORDERED: Aspirin 325 MG TABLET PO ONE (20:17)
[2017-05-21] MEDS ORDERED: Ondansetron 4 MG/2 ML VIAL IVP ONE (20:17)
[2017-05-21] MEDS ORDERED: *HR* Morphine 2 MG/ML SYRINGE IVP ONE (20:49)
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
[2017-05-21] MEDS ORDERED: Naloxone 0.4 MG/ML INJ IVP PRN (21:39)
[2017-05-21] MEDS ORDERED: *HR* Promethazine 25 MG/ML VIAL IVP PRN (21:39)
[2017-05-21] MEDS ORDERED: Acetaminophen 325 MG TABLET PO PRN (21:39)
[2017-05-21] MEDS ORDERED: Nitroglycerin 0.4 MG TAB.SUBL SL PRN (21:50)
[2017-05-21] MEDS ORDERED: Furosemide 40 MG/4 ML VIAL IVP ONE (21:54)
--- NOTE | 2017-05-21 21:54 | Event Note ---
Date of Encounter: 05/21/17 Time of Encounter: 21:52 Patient and examined with medical residents. Patient presents with shortness of breath and chest pain during dialysis. Patient does not dialyze efficiently. He misses one session almost weekly. He does not know his dry weight. He is clinically overloaded with lower extremity edema and positive JVD. He just needs efficient dialysis. One is oh .4 but he has end-stage renal disease. He had a coronary angiogram couple years ago showed no occlusive disease. Will start the patient on long-acting nitrates. Give dose of IV lasix 100 mg. Nephrology consultation
[2017-05-21] MEDS: hydrALAZINE 10 MG TABLET PO SCH (23:19)
[2017-05-21] MEDS: *HR* Heparin 5,000 UNIT/ML VIAL SQ SCH ×2 (23:19→23:37)
[2017-05-21] MEDS: Isosorbide MONOnitrate (24 HR) 60 MG TAB.ER.24H PO SCH (23:19)
[2017-05-22] MEDS: *HR* Morphine 2 MG/ML SYRINGE IVP PRN ×2 (00:23→05:51)
[2017-05-22] MEDS ORDERED: *HR* OxyCODONE Immed Rel 5 MG TABLET PO ONE (01:42)
[2017-05-22 02:15] LABS: Basophils # 0.1 K/mcL (0.0-0.2); Basophils % 1.2 %; Eosinophils # 0.3 K/mcL (0.0-0.6); Eosinophils % 5.8 %; Hematocrit 33.2 % (37.5-50.1); Hemoglobin 10.2 g/dL (12.9-16.9); Immature Granulocytes % 0.2 % (0-4); Lymphocytes % 18.7 %; Mean Corpuscular HGB Conc 30.7 g/dL (31.6-35.5); Mean Corpuscular Hemoglobin 29.1 pg (28.0-33.3); Mean Corpuscular Volume 94.6 fL (83.0-100.0); Mean Platelet Volume 10.1 fL (9.4-12.4); Monocytes # 0.6 K/mcL (0.0-1.3); Monocytes % 11.7 %; Neutrophils # 3.2 K/mcL (1.6-8.9); Platelet Count 163 K/mcL (140-400); Red Blood Count 3.51 M/mcL (4.19-5.50); Red Cell Distribution Width 15.4 % (11.5-14.5); Segmented Neutrophils % 62.4 %
[2017-05-22 02:29] LABS: Calcium 10.2 mg/dL (8.6-10.8); Magnesium 1.9 mg/dL (1.6-2.6); Phosphorous 6.7 mg/dL (2.3-4.7); Potassium 4.5 mEq/L (3.5-4.5)
[2017-05-22] MEDS: *HR* Heparin 5,000 UNIT/ML VIAL SQ SCH ×2 (05:51→14:07)
[2017-05-22] MEDS: hydrALAZINE 10 MG TABLET PO SCH ×2 (05:51→11:44)
[2017-05-22] MEDS ORDERED: Pantoprazole 40 MG VIAL IVP SCH (06:30)
[2017-05-22] MEDS ORDERED: 0.9 % Sodium Chloride 250 ML IVC PRN (07:22)
[2017-05-22] MEDS ORDERED: 0.9 % Sodium Chloride 2,000 ML ONE (07:57)
[2017-05-22] MEDS ORDERED: Furosemide 40 MG TABLET PO SCH (08:00)
[2017-05-22] MEDS ORDERED: Acetaminophen 325 MG TABLET PO PRN (08:17)
--- NOTE | 2017-05-22 08:35 | Nephrology Consult Note ---
Date of Encounter: 05/22/17 Time of Encounter: 08:33 Assessment and Plan (1) Fluid overload Current Visit: No Status: Acute UF today Plan for HD again tomorrow Fluid restriction 1.5 liters/day Qualifiers: Hypervolemia type: unspecified Qualified Code(s): E87.70 - Fluid overload, unspecified (2) Dialysis patient, noncompliant Current Visit: Yes Status: Chronic Grossly non-compliant with dialysis treatments, fluid restrictions, medications , and renal diet (3) Dyspnea Current Visit: No Status: Acute Will pull fluid off today with UF which should relieve some of his dyspnea Qualifiers: Dyspnea type: unspecified Qualified Code(s): R06.00 - Dyspnea, unspecified (4) ESRD (end stage renal disease) on dialysis Current Visit: No Status: Chronic see above Avoid nephrotoxins if possible History of Present Illness - Reason for Consult Consult date: 05/22/17 - Chief Complaint Fluid overload, ESRD on dialysis - History of Present Illness Mr. Snyder is a 31 year old male well known to our practice with PMH of ESRD on HD, heart failure with reduced ejection fraction, and liver cirrhosis with ascites who presents to [facility] because of shortness of breath during dialysis yesterday. Patient is grossly non-compliant with his dialysis treatments and his renal diet/fluid restriction. Frequent admissions for fluid overload. Past Med Surg Social Fam HX - Past Medical History Medical history: cardiomyopathy, CHF, dialysis, hypertension, liver disease, renal disease, other Psychiatric history: anxiety, depression - Past Surgical History Surgical History: orthopedic, other, vascular surgery, other - Social History Smoking Status: Current every day smoker Packs per day: 0.25 Smokeless Tobacco Status: No Alcohol use: none Drug use: none - Family History Mother Adopted: No Living Status: Still Living Hx Family Cardiac Disorders: Yes (Stroke) Hx Family Respiratory Disorders: No Hx Family Cancer: No Hx Family GI Disorders: No Hx Family Endocrine Disorder: Yes (DM) Hx Family Neuromuscular Disorders: No Hx Family Neurologic Disorders: No Hx Family HEENT Disorders: No Hx Family Autoimmune Disorders: No Father Living Status: Still Living Hx Family Cardiac Disorders: Yes (CAD) Hx Family Respiratory Disorders: No Hx Family Cancer: No Hx Family GI Disorders: No Hx Family Endocrine Disorder: Yes (Diabetes) Hx Family Neuromuscular Disorders: No Hx Family Neurologic Disorders: No Hx Family HEENT Disorders: No Hx Family Autoimmune Disorders: No Medications and Allergies Furosemide [Lasix] 80 mg PO BID #60 tablet 04/02/17 [Rx] Aspirin [Lo-Dose Aspirin EC] 81 mg PO DAILY 04/25/17 [History] Metoprolol XL (24 HR) Succ [Toprol Xl] 50 mg PO DAILY 04/25/17 [History] Sevelamer [Renvela] 1,600 mg PO TIDWM 04/25/17 [History] hydrALAZINE [HydrALAZINE] 10 mg PO Q6HR 04/25/17 [History] 3 Allergy/AdvReac Type Severity Reaction Status Date / Time No Known Allergies Allergy Verified 03/10/17 11:48 Review of Systems All Systems: reviewed and no additional remarkable complaints except as stated Constitutional: malaise, no fever(s) Cardiovascular: chest pain, chest pain at rest, dyspnea, edema, leg edema, pedal edema Respiratory: dyspnea Gastrointestinal: no vomiting Neurological: no behavioral changes, no weakness Exam - Vital Signs Vital signs: Initial Vital Signs Temp Pulse Resp BP Pulse Ox 98.1 F 96 18 117/93 96 05/21/17 18:54 05/21/17 18:54 05/21/17 18:54 05/21/17 18:54 05/21/17 18:54 Vital Signs - Last 8 Hours Temp Pulse Resp BP Pulse Ox 05/22/17 07:18 97.9 F 81 17 137/79 94 05/22/17 05:44 88 117/65 05/22/17 04:23 97.4 F L 90 17 104/65 92 Intake and Output 05/21/17 05/22/17 05/22/17 23:59 07:59 15:59 Intake Total 240 / 240 240 / 240 Balance 240 / 240 240 / 240 Intake: Oral 240 / 240 240 / 240 Other: Weight 148 kg - General Appearance General appearance: obese EENT: ATNC Neck: supple Respiratory: clear Cardiology: edema, normal S1, normal S2 Gastrointestinal: no tenderness, no guarding, obese Integumentary: warm and dry Results - Lab Results 05/22/17 01:37 05/22/17 01:37 Most recent lab results Calcium 10.2 mg/dL (8.6-10.8) 05/22/17 01:37 Phosphorus 6.7 mg/dL (2.3-4.7) H 05/22/17 01:37 Magnesium 1.9 mg/dL (1.6-2.6) 05/22/17 01:37 Consult Discharge Plan - Plan Referrals: NONE,PCP [Primary Care Provider] -
[2017-05-22] MEDS ORDERED: Aspirin Enteric Coated 81 MG Tablet PO SCH (09:00)
[2017-05-22] MEDS ORDERED: Metoprolol XL (24 HR) Succ 50 MG TAB.ER.24H PO SCH (09:00)
--- NOTE | 2017-05-22 09:46 | Discharge Summary ---
<Vishnu Cabrera - Last Filed: 05/22/17 14:43> Date of Encounter: 05/22/17 Time of Encounter: 09:44 - Discharge Diagnosis (1) ESRD (end stage renal disease) on dialysis Priority: Primary Status: Chronic (2) Dialysis patient, noncompliant Priority: Secondary Status: Chronic (3) Dyspnea Priority: Secondary Status: Acute Qualifiers: Dyspnea type: dyspnea on exertion Qualified Code(s): R06.09 - Other forms of dyspnea (4) Systolic and diastolic CHF, acute on chronic Priority: Secondary Status: Chronic (5) Anemia in CKD (chronic kidney disease) Priority: Secondary Status: Chronic Qualifiers: Chronic kidney disease stage: on chronic dialysis Qualified Code(s): N18.6 - End stage renal disease; D63.1 - Anemia in chronic kidney disease; Z99.2 - Dependence on renal dialysis (6) COPD (chronic obstructive pulmonary disease) Priority: Secondary Status: Chronic Qualifiers: COPD type: unspecified COPD Qualified Code(s): J44.9 - Chronic obstructive pulmonary disease, unspecified (7) Suprapubic catheter Priority: Secondary Status: Acute (8) Cirrhosis of liver with ascites Priority: Secondary Status: Chronic Qualifiers: Hepatic cirrhosis type: unspecified hepatic cirrhosis Qualified Code(s): K74.60 - Unspecified cirrhosis of liver (9) Fluid overload Priority: Secondary Status: Acute Qualifiers: Hypervolemia type: unspecified Qualified Code(s): E87.70 - Fluid overload, unspecified - Discharge Medications Prescriptions: Isosorbide MONOnitrate (24 HR) [Imdur] 60 mg PO DAILY #30 tab Home Medications: Furosemide [Lasix] 80 mg PO BID #60 tablet 04/02/17 [Rx] Aspirin [Lo-Dose Aspirin EC] 81 mg PO DAILY 04/25/17 [History] Metoprolol XL (24 HR) Succ [Toprol Xl] 50 mg PO DAILY 04/25/17 [History] Sevelamer [Renvela] 1,600 mg PO TIDWM 04/25/17 [History] hydrALAZINE [HydrALAZINE] 10 mg PO Q6HR 04/25/17 [History] Isosorbide MONOnitrate (24 HR) [Imdur] 60 mg PO DAILY #30 tab 05/22/17 [Rx] Allergies/Adverse Reactions: 3 Allergy/AdvReac Type Severity Reaction Status Date / Time No Known Allergies Allergy Verified 03/10/17 11:48 Procedures/tests Complete & Pending: CXR: IMPRESSION: Stable cardiomegaly with findings of mild interstitial edema. Decreased size of the right pleural effusion. Date of admission: 05/21/17 20:50 Primary care physician: PCP NONE Consults: 05/21/17 21:45 Consult to Nephrology [CONS] Routine Consulting Provider: Carmela Cisneros/STEPH/JEANETTE/NICOLASA Reason for Consult: ESRD on HD. Dr. Wynne patient. Reports only having received ~1/2 HD today. Recently admitted for pleural effusion. Possibly need more HD? or will need assistance if patient here until Friday. Call Completed: No 05/22/17 07:30 Consult to Dialysis [CONS] ONCE Discharging clinician: Vishnu Cabrera Anticipated date of discharge: 05/22/17 - Patient Status Disposition: Home, Self-Care Condition: Fair Functional capacity at discharge: uses cane/walker Overall status at discharge: patient is progressing back to baseline - Discharge Instructions Follow Up With: Roz Fisher MD [Partnered Physician] - (Patient will follow up with or Dr. Maravilla at the [facility] on your normal HD days) Additional Instructions: Please follow up with your primary care provider within 1 week. Please resume all your home medications. Please take the new medication Imdur as prescribed. Please continue to keep all your dialysis appointments. Please follow your low sodium, low potassium, and fluid restriction diets. Please return to the hospital if you experience any new or worsening symptoms. - Diet and Activity Activity: resume usual activities as tolerated Diet: advance to your usual diet, low salt diet Interval History: Patient received 1/2 a course of Dialysis yesterday before becoming SOB. He was sent in. Today he received UF today. His SOB has improved. He will have his normal out patient dialysis tomorrow. Hospital course: Mr. Snyder is a 31 year old male c PMHx of ESRD on HD, Hx of non compliance. Patient is well known to the hospital for non-compliance, skipping dialysis, beign admitted to catch patient up on dialysis. On this admission patient was at Dialysis on Friday when he became SOB and had chest pain. Patient was admitted and received Ultra Filtration dialysis today. His SOB improved post dialysis. Patient was also started on Imdur for his chest pain which also resolved. Patient has a long hx of chest pain treated with NG. Switched to long acting Imdur. Patient will have regualr out patient dialysis tomorrow. - Time Spent with Patient Total time spent providing and/or coordinating discharge services: 40 minutes - Constitutional Vitals: Temp Pulse Resp BP Pulse Ox 97.3 F L 81 20 122/74 94 05/22/17 07:50 05/22/17 07:18 05/22/17 07:50 05/22/17 08:50 05/22/17 07:18 General appearance: Present: A&O X 3, obese - Head Head exam: Present: atraumatic, normocephalic - Eye Eye exam: Present: PERRL, conjuntiva pink, sclera anicteric Pupils: Present: PERRL - Neck Neck exam general surgery: Present: supple, trachea midline - Respiratory Respiratory exam: Present: CTAB. Absent: accessory muscle use, rales, rhonchi, wheezes - Cardiovascular Cardiovascular exam: Present: RRR, +S1, +S2. Absent: diastolic murmur, gallop, rubs, systolic murmur - GI/Abdominal GI/Abdominal exam: Present: normal bowel sounds, soft, no peritoneal signs. Absent: tenderness - Extremities Exam Extremities exam: Present: pedal edema, warm. Absent: calf tenderness, cyanotic - Neurological Exam Neurological exam: Present: alert, oriented X3. Absent: facial droop, speech deficit - Skin Skin exam: Present: dry, intact <Ralph Snyder - Last Filed: 05/22/17 19:06> Date of Encounter: 05/22/17 - Discharge Diagnosis (1) Fluid overload Priority: Primary Status: Acute Qualifiers: Hypervolemia type: other Qualified Code(s): E87.79 - Other fluid overload (2) ESRD (end stage renal disease) on dialysis Status: Chronic (3) Systolic and diastolic CHF, acute on chronic Status: Chronic Comments: Not on CHEIKH due to renal disease. (4) Chest pain Priority: Secondary Status: Acute Qualifiers: Chest pain type: other chest pain Qualified Code(s): R07.89 - Other chest pain; R07.8 - Other chest pain (5) Anemia in CKD (chronic kidney disease) Status: Chronic Qualifiers: Chronic kidney disease stage: on chronic dialysis Qualified Code(s): N18.6 - End stage renal disease; D63.1 - Anemia in chronic kidney disease; Z99.2 - Dependence on renal dialysis (6) COPD (chronic obstructive pulmonary disease) Status: Chronic Qualifiers: COPD type: emphysema Emphysema type: other Qualified Code(s): J43.8 - Other emphysema (7) Tobacco abuse Priority: Secondary Status: Chronic Date of admission: 05/21/17 20:50 Primary care physician: PCP NONE Consults: 05/21/17 21:45 Consult to Nephrology [CONS] Routine Consulting Provider: Kidney Amelia/STEPH/JEANETTE/NICOLASA Reason for Consult: ESRD on HD. Dr. Wynne patient. Reports only having received ~1/2 HD today. Recently admitted for pleural effusion. Possibly need more HD? or will need assistance if patient here until Friday. Call Completed: No 05/22/17 07:30 Consult to Dialysis [CONS] ONCE Hospital course: Mr. Snyder is a 31 year old male - Time Spent with Patient Total time spent providing and/or coordinating discharge services: 37min - Constitutional Vitals: Temp Pulse Resp BP Pulse Ox 98.4 F 89 17 136/81 90 05/22/17 11:35 05/22/17 11:35 05/22/17 11:35 05/22/17 11:35 05/22/17 11:35 - Attending Attestation I examined this patient and my medical decision-making was reviewed with the Resident Physician on 05/22/17. I agree with the documented findings, disposition and treatment plan as described except to the extent set forth below. Mr Snyder was admitted due to dyspnea due to volume overload. He is feeling better after ultrafiltration today. He does not need paracentesis today. He is afebrile with stable vitals and ready for discharge home. Exam Alert. Comfortable Heart reg No wheeze Abd soft Edema present Plan D/C today Follow for dialysis tomorrow.
[2017-05-22 11:36] VITALS: BP 136/81
[2017-05-22] MEDS: Isosorbide MONOnitrate (24 HR) 60 MG TAB.ER.24H PO SCH (11:44)
--- NOTE | 2017-05-22 17:05 | Electrocardiograph Report ---
[place] [id number] Test Date: 2017-05-21 Pat Name: Song Snyder Department: 102 Room: 2A Gender: M Leaf Tier: : 1985 Requested By: Jermaine Yates Order Number: [id number] Reading MD: Lamont Mora DO Measurements Intervals [place]cock Rate: 98 P: OR: 0 QRS: 3 QRSD: 114 T: 146 QT: 377 QTc: 432 Interpretive Statements Sinus rhythm Left ventricluar hypertrophy ST-T changes due to hypertrophy and/or ischemia Electronically Signed On 05-22-2017 17:03:52 EDT by Lamont Mora DO
== END 2017-05-22 18:17 | disposition home or self-care (01) ==
LOC: EMEROO 18:54 → 2ANU 18:54
PROVIDERS: ADMIT Internal Medicine; ATTEND Internal Medicine

== ENCOUNTER 2017-09-05 13:28 | Observation (INO) ==
[~2017-09-05 13:28] MED LIST: Piperacillin/Tazobactam 3.375 GM/200 ML BAG IVPB SCH
--- NOTE | 2017-09-05 13:58 | Emergency Department Note ---
Disposition Clinical Impression: Hyperkalemia, SBP (spontaneous bacterial peritonitis), End stage renal disease Disposition: Admitted As Inpatient Condition: Fair Time of Disposition: 19:10 Abdominal Pain HPI - General Chief Complaint: ED Abdominal Pain Stated Complaint: abdominal pain, vomiting Time Seen by Provider: 09/05/17 13:37 Source: EMS Limitations: no limitations Nursing Notes Reviewed: Yes Vital Signs Reviewed: Yes - History of Present Illness HPI Narrative: Patient is a 32-year-old male presents to emergency room with abdominal pain. He states that he has a history of end-stage renal disease which she dialyzes Friday and Friday. Last dialysis was done on Friday. He states that he had a paracentesis approximately 2 weeks ago and has developed abdominal pain last night and has had worsening distention. He states that he has been having drainage from the paracentesis site He started feeling flulike symptoms with fever, nausea, vomiting and diarrhea 2 days ago. States that nothing seems to make his symptoms any better but is made worse with physical activity. He rates his abdominal pain as a 10 out of 10. . Pain Scale: 10 - Related Data Home Medications Medication Instructions Recorded Confirmed Aspirin [Lo-Dose Aspirin EC] 81 mg PO DAILY 04/25/17 09/05/17 Metoprolol XL (24 HR) Succ [Toprol 50 mg PO DAILY 04/25/17 09/05/17 Xl] Sevelamer [Renvela] 1,600 mg PO TIDWM 04/25/17 09/05/17 hydrALAZINE [HydrALAZINE] 10 mg PO Q6HR 04/25/17 09/05/17 Previous Rx's Medication Instructions Recorded Furosemide [Lasix] 80 mg PO BID #60 tablet 04/02/17 Isosorbide MONOnitrate (24 HR) 60 mg PO DAILY #30 tab 05/22/17 [Imdur] Allergies Allergy/AdvReac Type Severity Reaction Status Date / Time No Known Allergies Allergy Verified 06/02/17 17:59 All systems ED: reviewed and negative except as stated. Constitutional: Reports: fever, chills Gastrointestinal: Reports: abdominal pain, nausea, vomiting, diarrhea Abdominal Pain PMH - Past Medical History Medical history: Reports: cardiomyopathy, CHF, dialysis, hypertension, liver disease, renal disease, other Male Surgical History: Reports: other Psychiatric history: Reports: anxiety, depression - Social History Smoking status: Current every day smoker Alcohol use: Reports: none Drug use: Reports: none Physical Exam - General Limitations: no limitations General appearance: alert, in no apparent distress, other (Appears to be uncomfortable) - Head Head exam: atraumatic, normocephalic - Eye Eye exam: Present: normal appearance, EOMI - Neck Neck exam: Present: normal inspection, full ROM, trachea midline - Respiratory Respiratory exam: Present: wheezes (Bilaterally) - Cardiovascular Cardiovascular exam: Present: regular rate, normal rhythm, normal heart sounds, +S1, +S2 - Abdominal Exam Abdominal exam: Present: tenderness, distention, hypoactive bowel sounds, ascites, other (Suprapubic catheter in place) Abdominal tenderness: Present: diffuse, severe - Neurological Exam Neurological exam: Present: alert, oriented X3 - Psychiatric Psychiatric exam: Present: normal affect, normal mood - Skin Skin exam: Present: warm, dry, intact, erythema (over the lower abdomen ) Course Vital Signs Temperature 99.6 F 09/05/17 13:37 Pulse Rate 109 09/05/17 13:37 Respiratory Rate 22 09/05/17 13:37 Blood Pressure 138/91 09/05/17 13:37 O2 Sat by Pulse Oximetry 95 09/05/17 13:37 Temperature 98.2 F 09/06/17 19:57 Pulse Rate 96 09/06/17 19:57 Respiratory Rate 17 09/06/17 19:57 Blood Pressure 109/57 09/06/17 19:57 O2 Sat by Pulse Oximetry 92 09/06/17 19:57 Oxygen Delivery Oxygen Delivery Room Air Abdominal Pain - MDM Narrative Medical decision making narrative: The patient having distention of his abdomen with what appears to be ascites we will perform a paracentesis. We will also order a CBC BMP blood cultures, coagulation studies and start the patient on Rocephin. The patient had an elevated potassium of 6.6. He is given albuterol and insulin and glucose. EKG showed sinus tachycardia. EKG without any changes consistent with hyperkalemia calcium will not be given at this time. chest x-ray showed Patchy haziness bilaterally which may represent congestion versus pneumonitis versus multifocal pneumonia. CT scan of the abdomen and pelvis showed hepatosplenomegaly like he secondary to portal hypertension. There is also markedly intra-abdominal and pelvic ascites, atrophic kidneys compatible with chronic renal failure, diffuse body wall edema and a right inguinal hernia. Preliminary Gram stain is negative for bacteria. Cultures are still pending. There is concern for spontaneous bacterial peritonitis. The patient has received doses of Rocephin and azithromycin here in the emergency department. Patient will need to be admitted to the hospital. I spoke with the hospitalist and have accepted the patient to their service. The patient be admitted to the hospital at this time. - Medical Records Medical records reviewed: Yes I reviewed the patient's medical records. - Lab Data Lab results reviewed: Yes I reviewed the patient's lab results. Lab results narrative: Abdomen/Pelvis CT 09/05/17 15:13 IMPRESSION: 1. Cirrhosis with hepatosplenomegaly likely secondary to portal hypertension. 2. Marked intra-abdominal and pelvic ascites secondary to underlying liver disease. 3. Atrophic kidneys compatible move his known chronic renal failure. 4. Diffuse body wall edema. 5. Right inguinal hernia. D/ / Anson Alvarez MD / Anson Alvarez MD Interpreting Provider: Anson Alvarez MD Chest X-Ray 09/05/17 15:15 IMPRESSION: Patchy haziness bilaterally which may represent congestion versus pneumonitis versus multifocal pneumonia D/ / Johnathon Kline MD / Johnathon Kline MD Interpreting Provider: Johnathon Kline MD Result diagrams: 09/06/17 06:04 09/06/17 04:13 Lab Results 09/05/17 09/05/17 09/05/17 Range/Units 14:08 14:08 14:08 WBC 18.4 H (4.3-11.1) K/mcL RBC 4.50 (4.19-5.50) M/mcL Hgb 13.2 (12.9-16.9) g/dL Hct 40.6 (37.5-50.1) % MCV 90.2 (83.0-100.0) fL MCH 29.3 (28.0-33.3) pg MCHC 32.5 (31.6-35.5) g/dL RDW 15.4 H (11.5-14.5) % Plt Count 107 L (140-400) K/mcL MPV 10.5 (9.4-12.4) fL Seg Neutrophils % 70.0 % Band Neutrophils % 28.0 H (0-4) % Lymphocytes % Test Not Performed Monocytes % 2.0 % Neutrophils # 18.0 H (1.6-8.9) K/mcL Lymphocytes # [employer] Monocytes # 0.4 (0.0-1.3) K/mcL Platelet Estimate Decreased L (Normal) PT 18.3 H (9.4-12.1) Seconds INR 1.7 APTT 37.7 H (26.0-36.0) Seconds Sodium 130 L (136-145) mEq/L Potassium 6.6 H* (3.5-5.1) mEq/L Chloride 92 L (98-107) mEq/L Carbon Dioxide 26 (23-29) mEq/L BUN 49 H (6-20) mg/dL Creatinine 9.97 H (0.70-1.30) mg/dL Est GFR ( Amer) 7 L (> 60) Est GFR (Non-Af Amer) 6 L (> 60) BUN/Creatinine Ratio 5 L (6-26) Glucose 96 (70-105) mg/dL Calculated Osmolality 283 (280-300) Lactic Acid (0.5-2.2) mmol/L Calcium 9.8 (8.6-10.3) mg/dL Total Bilirubin 1.1 H (0.3-1.0) mg/dL Direct Bilirubin 0.5 H (0.0-0.2) mg/dL Indirect Bilirubin 0.6 (0.0-1.2) mg/dL AST 10 L (13-39) Units/L ALT 7 (7-52) Units/L Alkaline Phosphatase 129 H (34-104) Units/L Ammonia (16-53) mcmol/L Serum Total Protein 7.0 (6.4-8.9) g/dL Albumin 3.6 (3.5-5.7) g/dL Globulin 3.4 (2.4-3.5) g/dL Albumin/Globulin Ratio 1.1 (1.1-2.2) Amylase 28 L (29-103) Units/L Lipase 4 L (11-82) Units/L Peritoneal Appearance (Clear) Peritoneal Volume mL Peritoneal pH (No Ref Range) pH Units Peritoneal RBC (0.000 - 0.002) M/mcL Periton Tot Nuc Cells (0-300) TNC/mcL Periton Neutrophils % Periton Band Neuts Peritoneal Eosinophils Peritoneal Basophils Periton Lymphocytes % % Periton Monocytes % % Periton Other Cells % Peritoneal Tot Protein (No Ref Range) g/dL Peritoneal Albumin (No Ref Range) g/dL Peritoneal LDH (No Ref Range) Units/L Peritoneal Glucose (No Ref Range) mg/dL 09/05/17 09/05/17 09/05/17 Range/Units 14:27 16:04 17:09 WBC (4.3-11.1) K/mcL RBC (4.19-5.50) M/mcL Hgb (12.9-16.9) g/dL Hct (37.5-50.1) % MCV (83.0-100.0) fL MCH (28.0-33.3) pg MCHC (31.6-35.5) g/dL RDW (11.5-14.5) % Plt Count (140-400) K/mcL MPV (9.4-12.4) fL Seg Neutrophils % % Band Neutrophils % (0-4) % Lymphocytes % Monocytes % % Neutrophils # (1.6-8.9) K/mcL Lymphocytes # Monocytes # (0.0-1.3) K/mcL Platelet Estimate (Normal) PT (9.4-12.1) Seconds INR APTT (26.0-36.0) Seconds Sodium (136-145) mEq/L Potassium (3.5-5.1) mEq/L Chloride (98-107) mEq/L Carbon Dioxide (23-29) mEq/L BUN (6-20) mg/dL Creatinine (0.70-1.30) mg/dL Est GFR ( Amer) (> 60) Est GFR (Non-Af Amer) (> 60) BUN/Creatinine Ratio (6-26) Glucose (70-105) mg/dL Calculated Osmolality (280-300) Lactic Acid 3.0 H (0.5-2.2) mmol/L Calcium (8.6-10.3) mg/dL Total Bilirubin (0.3-1.0) mg/dL Direct Bilirubin (0.0-0.2) mg/dL Indirect Bilirubin (0.0-1.2) mg/dL AST (13-39) Units/L ALT (7-52) Units/L Alkaline Phosphatase (34-104) Units/L Ammonia 29 (16-53) mcmol/L Serum Total Protein (6.4-8.9) g/dL Albumin (3.5-5.7) g/dL Globulin (2.4-3.5) g/dL Albumin/Globulin Ratio (1.1-2.2) Amylase (29-103) Units/L Lipase (11-82) Units/L Peritoneal Appearance CLEAR (Clear) Peritoneal Volume 2.0 mL Peritoneal pH 8.00 (No Ref Range) pH Units Peritoneal RBC 0.005 H (0.000 - 0.002) M/mcL Periton Tot Nuc Cells 38 (0-300) TNC/mcL Periton Neutrophils 34.0 % Periton Band Neuts Test Not Performed Peritoneal Eosinophils Test Not Performed Peritoneal Basophils Test Not Performed Periton Lymphocytes % 58.0 % Periton Monocytes % 8.0 % Periton Other Cells % Test Not Performed Peritoneal Tot Protein 3.2 (No Ref Range) g/dL Peritoneal Albumin 1.7 (No Ref Range) g/dL Peritoneal LDH 96 (No Ref Range) Units/L Peritoneal Glucose 104 (No Ref Range) mg/dL - Radiology Data Radiology results reviewed: Yes I reviewed the patient's radiology results. Abdomen/Pelvis CT 09/05/17 15:13 IMPRESSION: 1. Cirrhosis with hepatosplenomegaly likely secondary to portal hypertension. 2. Marked intra-abdominal and pelvic ascites secondary to underlying liver disease. 3. Atrophic kidneys compatible move his known chronic renal failure. 4. Diffuse body wall edema. 5. Right inguinal hernia. D/ / Anson Alvarez MD / Anson Alvarez MD Interpreting Provider: Anson Alvarez MD Chest X-Ray 09/05/17 15:15 IMPRESSION: Patchy haziness bilaterally which may represent congestion versus pneumonitis versus multifocal pneumonia D/ / Johnathon Kline MD / Johnathon Kline MD Interpreting Provider: Johnathon Kline MD - EKG Data EKG attestation: Yes I reviewed and interpreted this EKG. EKG results narrative: Patient's EKG shows sinus tachycardia at a rate of 109, QRS duration of 105, QTC of 388. There are some nonspecific T-wave changes. EKG was compared to previous on 06/10/17 Attestation Statement - Attestation Attestation: I examined this patient and my medical decision-making was reviewed with the Resident Physician. I agree with the documented findings, disposition and treatment plan as described except to the extent set forth below. Patient presents with severe abdominal pain, leukocytosis, ascites. Concern for spontaneous bacterial peritonitis. An cultures obtained, ceftriaxone initiated. Paracentesis was performed by my resident with direct supervision by myself. After the skin was cleansed with Betadine and the patient was draped in a sterile fashion a small incision was made through the epidermis and dermis to facilitate placement of the paracentesis needle. An avoidance of redness over the lower abdomen a clear area of skin was identified without any evidence of infection. The ultrasound was utilized to find an appropriate fluid pocket. The needle was introduced in to the abdomen in the left lower quadrant with aspiration of clear ascites. The needle was then removed without any kind of complication or drainage. There is no evidence of bleeding. A 15 mL sample of fluid was sent to the lab for analysis to rule out spontaneous bacterial peritonitis. The patient had consent prior to the procedure. I spent greater than 35 minutes of critical care time resuscitating this acutely ill patient suffering from sepsis and possible spontaneous bacterial peritonitis. This is excluding billable procedures.
[2017-09-05] MEDS ORDERED: cefTRIAXone 1,000 MG in Water for inj. (sterile) 20 ML 10 ML IVP SCH (14:00)
[2017-09-05 14:15] LABS: Hematocrit 40.6 % (37.5-50.1); Hemoglobin 13.2 g/dL (12.9-16.9); Mean Corpuscular HGB Conc 32.5 g/dL (31.6-35.5); Mean Corpuscular Hemoglobin 29.3 pg (28.0-33.3); Mean Corpuscular Volume 90.2 fL (83.0-100.0); Mean Platelet Volume 10.5 fL (9.4-12.4); Platelet Count 107 K/mcL (140-400); Red Cell Distribution Width 15.4 % (11.5-14.5)
[2017-09-05 14:16] LABS: Monocytes # 0.4 K/mcL (0.0-1.3)
[2017-09-05 14:22] LABS: INR 1.7; Prothrombin Time 18.3 Seconds (9.4-12.1)
[2017-09-05 14:24] LABS: Activated Partial Thrombo Time 37.7 Seconds (26.0-36.0)
[2017-09-05 14:35] LABS: Platelet Estimate Decreased (Normal)
[2017-09-05] MEDS ORDERED: *HR* HYDROmorphone (PF) 1 MG/ML SYRINGE IVP ONE ×2 (14:52→17:45)
[2017-09-05 15:14] LABS: Albumin 3.6 g/dL (3.5-5.7); Albumin/Globulin Ratio 1.1 (1.1-2.2); Bilirubin,Direct 0.5 mg/dL (0.0-0.2); Bilirubin,Indirect 0.6 mg/dL (0.0-1.2); Bilirubin,Total 1.1 mg/dL (0.3-1.0); Calcium 9.8 mg/dL (8.6-10.3); Globulin 3.4 g/dL (2.4-3.5); Potassium 6.6 mEq/L (3.5-5.1)
[2017-09-05] MEDS ORDERED: Insulin Human Regular 10 UNIT in 0.9 % Sodium Chloride 10 ML IV ONE (15:14)
[2017-09-05] MEDS ORDERED: *HR* Dextrose 50 % in Water (Syg) 50 ML SYRINGE IVP ONE (15:14)
[2017-09-05] MEDS ORDERED: Albuterol 2.5 MG/3 ML NEBULIZER IH ONE (15:14)
[2017-09-05 16:38] LABS: RBC,Peritoneal Fluid 0.005 M/mcL
[2017-09-05 16:44] LABS: Glucose,Peritoneal Fluid 104 mg/dL (No Ref Range); LDH,Peritoneal Fluid 96 Units/L (No Ref Range); Total Protein,Peritoneal Fluid 3.2 g/dL (No Ref Range)
[2017-09-05] MEDS ORDERED: Azithromycin 500 MG in D5% in Water 250 ML IVPB ONE (17:15)
[2017-09-05 17:21] LABS: Appearance of Peritoneal Fl CLEAR (Clear)
[2017-09-05] MEDS ORDERED: 0.9 % Sodium Chloride 1,000 ML IVC SCH (21:15)
[2017-09-05] MEDS ORDERED: Naloxone 0.4 MG/ML INJ IVP PRN (21:23)
[2017-09-05] MEDS ORDERED: Acetaminophen 325 MG TABLET PO PRN (21:34)
[2017-09-05] MEDS ORDERED: *HR* HYDROmorphone (PF) 1 MG/ML SYRINGE IVP PRN (21:34)
[2017-09-05] MEDS ORDERED: Piperacillin/Tazobactam 3.375 GM/200 ML BAG IVPB SCH (22:00)
[2017-09-05] MEDS ORDERED: Vancomycin 2,000 MG in D5% in Water 500 ML IVPB ONE (22:00)
[2017-09-05] MEDS ORDERED: Vancomycin 2,000 MG in D5% in Water 250 ML IVPB SCH (22:00)
[2017-09-05] MEDS: Furosemide 40 MG TABLET PO SCH (23:04)
[2017-09-05] MEDS: Ondansetron 4 MG/2 ML VIAL IVP PRN (23:34)
--- NOTE | 2017-09-05 23:47 | Emergency Department Note ---
Disposition Clinical Impression: Hyperkalemia, SBP (spontaneous bacterial peritonitis), End stage renal disease Disposition: Admitted As Inpatient Condition: Fair General Adult HPI - General Chief complaint: ED Abdominal Pain Stated complaint: abdominal pain, vomiting Time Seen by Provider: 09/05/17 13:37 Source: EMS Limitations: no limitations - History of Present Illness Pain Scale: 9 - Related Data Home Medications Medication Instructions Recorded Confirmed Aspirin [Lo-Dose Aspirin EC] 81 mg PO DAILY 04/25/17 09/05/17 Metoprolol XL (24 HR) Succ [Toprol 50 mg PO DAILY 04/25/17 09/05/17 Xl] Sevelamer [Renvela] 1,600 mg PO TIDWM 04/25/17 09/05/17 hydrALAZINE [HydrALAZINE] 10 mg PO Q6HR 04/25/17 09/05/17 Previous Rx's Medication Instructions Recorded Furosemide [Lasix] 80 mg PO BID #60 tablet 04/02/17 Isosorbide MONOnitrate (24 HR) 60 mg PO DAILY #30 tab 05/22/17 [Imdur] Allergies Allergy/AdvReac Type Severity Reaction Status Date / Time No Known Allergies Allergy Verified 06/02/17 17:59 Constitutional: Reports: fever, chills Gastrointestinal: Reports: abdominal pain, nausea, vomiting, diarrhea Past Medical History - Past Medical History Medical history: Reports: cardiomyopathy, CHF, dialysis, hypertension, liver disease, renal disease, other Surgical history: Reports: orthopedic, other, vascular surgery, other Psychiatric history: Reports: anxiety, depression - Social History Smoking Status: Current every day smoker Smokeless Tobacco Status: No Alcohol use: Reports: none Drug use: Reports: none Physical Exam - General Limitations: no limitations General appearance: alert, in no apparent distress, other (Appears to be uncomfortable) Course Vital Signs Temperature 99.6 F 09/05/17 13:37 Pulse Rate 109 09/05/17 13:37 Respiratory Rate 22 09/05/17 13:37 Blood Pressure 138/91 09/05/17 13:37 O2 Sat by Pulse Oximetry 95 09/05/17 13:37 Temperature 100.7 F H 09/05/17 20:48 Pulse Rate 122 09/05/17 20:48 Respiratory Rate 22 09/05/17 20:48 Blood Pressure 130/80 09/05/17 20:48 O2 Sat by Pulse Oximetry 94 09/05/17 20:48 Oxygen Delivery Oxygen Delivery Room Air Procedures - Paracentesis Consent Obtained: written consent Indication: possible spontaneous bacterial peritonitis Procedure: diagnostic paracentesis Location: LLQ Local Anesthetic: lidocaine 1% Amount of anesthesia used (mL): 3 Bedside Ultrasound Used: yes, Ascites confirmed and location marked Preparation: 11 blade used to make isabela in skin Amount of Fluid Obtained: 3 Fluid: cloudy Post Procedure Exam: awake, alert, normal BP, normal SpO2, other (Patient was tachycardic ) Patient Tolerated Procedure: well Complications: none Medical Decision Making - Lab Data Result diagrams: 09/05/17 14:08 09/05/17 14:08 Lab Results 09/05/17 09/05/17 09/05/17 Range/Units 14:08 14:08 14:08 WBC 18.4 H (4.3-11.1) K/mcL RBC 4.50 (4.19-5.50) M/mcL Hgb 13.2 (12.9-16.9) g/dL Hct 40.6 (37.5-50.1) % MCV 90.2 (83.0-100.0) fL MCH 29.3 (28.0-33.3) pg MCHC 32.5 (31.6-35.5) g/dL RDW 15.4 H (11.5-14.5) % Plt Count 107 L (140-400) K/mcL MPV 10.5 (9.4-12.4) fL Seg Neutrophils % 70.0 % Band Neutrophils % 28.0 H (0-4) % Lymphocytes % Test Not Performed Monocytes % 2.0 % Neutrophils # 18.0 H (1.6-8.9) K/mcL Lymphocytes # [employer] Monocytes # 0.4 (0.0-1.3) K/mcL Platelet Estimate Decreased L (Normal) PT 18.3 H (9.4-12.1) Seconds INR 1.7 APTT 37.7 H (26.0-36.0) Seconds Sodium 130 L (136-145) mEq/L Potassium 6.6 H* (3.5-5.1) mEq/L Chloride 92 L (98-107) mEq/L Carbon Dioxide 26 (23-29) mEq/L BUN 49 H (6-20) mg/dL Creatinine 9.97 H (0.70-1.30) mg/dL Est GFR ( Amer) 7 L (> 60) Est GFR (Non-Af Amer) 6 L (> 60) BUN/Creatinine Ratio 5 L (6-26) Glucose 96 (70-105) mg/dL Calculated Osmolality 283 (280-300) Lactic Acid (0.5-2.2) mmol/L Calcium 9.8 (8.6-10.3) mg/dL Total Bilirubin 1.1 H (0.3-1.0) mg/dL Direct Bilirubin 0.5 H (0.0-0.2) mg/dL Indirect Bilirubin 0.6 (0.0-1.2) mg/dL AST 10 L (13-39) Units/L ALT 7 (7-52) Units/L Alkaline Phosphatase 129 H (34-104) Units/L Ammonia (16-53) mcmol/L Serum Total Protein 7.0 (6.4-8.9) g/dL Albumin 3.6 (3.5-5.7) g/dL Globulin 3.4 (2.4-3.5) g/dL Albumin/Globulin Ratio 1.1 (1.1-2.2) Amylase 28 L (29-103) Units/L Lipase 4 L (11-82) Units/L Peritoneal Appearance (Clear) Peritoneal Volume mL Peritoneal pH (No Ref Range) pH Units Peritoneal RBC (0.000 - 0.002) M/mcL Periton Tot Nuc Cells (0-300) TNC/mcL Periton Neutrophils % Periton Band Neuts Peritoneal Eosinophils Peritoneal Basophils Periton Lymphocytes % % Periton Monocytes % % Periton Other Cells % Peritoneal Tot Protein (No Ref Range) g/dL Peritoneal Albumin (No Ref Range) g/dL Peritoneal LDH (No Ref Range) Units/L Peritoneal Glucose (No Ref Range) mg/dL 09/05/17 09/05/17 09/05/17 Range/Units 14:27 16:04 17:09 WBC (4.3-11.1) K/mcL RBC (4.19-5.50) M/mcL Hgb (12.9-16.9) g/dL Hct (37.5-50.1) % MCV (83.0-100.0) fL MCH (28.0-33.3) pg MCHC (31.6-35.5) g/dL RDW (11.5-14.5) % Plt Count (140-400) K/mcL MPV (9.4-12.4) fL Seg Neutrophils % % Band Neutrophils % (0-4) % Lymphocytes % Monocytes % % Neutrophils # (1.6-8.9) K/mcL Lymphocytes # Monocytes # (0.0-1.3) K/mcL Platelet Estimate (Normal) PT (9.4-12.1) Seconds INR APTT (26.0-36.0) Seconds Sodium (136-145) mEq/L Potassium (3.5-5.1) mEq/L Chloride (98-107) mEq/L Carbon Dioxide (23-29) mEq/L BUN (6-20) mg/dL Creatinine (0.70-1.30) mg/dL Est GFR ( Amer) (> 60) Est GFR (Non-Af Amer) (> 60) BUN/Creatinine Ratio (6-26) Glucose (70-105) mg/dL Calculated Osmolality (280-300) Lactic Acid 3.0 H (0.5-2.2) mmol/L Calcium (8.6-10.3) mg/dL Total Bilirubin (0.3-1.0) mg/dL Direct Bilirubin (0.0-0.2) mg/dL Indirect Bilirubin (0.0-1.2) mg/dL AST (13-39) Units/L ALT (7-52) Units/L Alkaline Phosphatase (34-104) Units/L Ammonia 29 (16-53) mcmol/L Serum Total Protein (6.4-8.9) g/dL Albumin (3.5-5.7) g/dL Globulin (2.4-3.5) g/dL Albumin/Globulin Ratio (1.1-2.2) Amylase (29-103) Units/L Lipase (11-82) Units/L Peritoneal Appearance CLEAR (Clear) Peritoneal Volume 2.0 mL Peritoneal pH 8.00 (No Ref Range) pH Units Peritoneal RBC 0.005 H (0.000 - 0.002) M/mcL Periton Tot Nuc Cells 38 (0-300) TNC/mcL Periton Neutrophils 34.0 % Periton Band Neuts Test Not Performed Peritoneal Eosinophils Test Not Performed Peritoneal Basophils Test Not Performed Periton Lymphocytes % 58.0 % Periton Monocytes % 8.0 % Periton Other Cells % Test Not Performed Peritoneal Tot Protein 3.2 (No Ref Range) g/dL Peritoneal Albumin 1.7 (No Ref Range) g/dL Peritoneal LDH 96 (No Ref Range) Units/L Peritoneal Glucose 104 (No Ref Range) mg/dL
[2017-09-05] MEDS: *HR* OxyCODONE Immed Rel 5 MG TABLET PO PRN (23:49)
[2017-09-05] MEDS: hydrALAZINE 10 MG TABLET PO SCH (23:49)
--- NOTE | 2017-09-05 23:58 | Internal Med History&Physical ---
Date of Encounter: 09/05/17 Time of Encounter: 20:00 Assessment and Plan (1) Sepsis Current visit: Yes Status: Acute Patient has fever, tachycardia, leukocytosis, meet criteria of sepsis. Lactate 3.0. Infection site may be abdominal wall cellulitis or pneumonia. - We will place patient on low rate IV fluid, careful hydration because of severe systolic CHF and end-stage renal disease with missing HD. - We will closely monitor patient's fluid status. Right now, oxygen saturation 95% in room air. - We will start broad-spectrum antibiotic Vanco and Zosyn. - Flu test - UA as pt has suprapubic cathater. - Follow up lactate level in a.m. Patient is at high risk because of vancomycin, need close monitoring. Qualifiers: Sepsis type: sepsis due to unspecified organism Qualified Code(s): A41.9 - Sepsis, unspecified organism (2) Cellulitis of abdominal wall Current visit: Yes Status: Acute Patient has lower abdominal wall redness and warmth and tenderness. No discharge. No open wound. CT abdominal has been done, seems no abscess. - Continue Vanco and Zosyn - Follow blood culture results (3) Hypertension Current visit: No Status: Chronic Continue home medications Qualifiers: Hypertension type: essential hypertension Qualified Code(s): I10 - Essential (primary) hypertension (4) CHF (congestive heart failure) Current visit: No Status: Chronic Patient has systolic CHF. We will continue home medications. Nephrology consult was called for hemodialysis Qualifiers: Congestive heart failure type: combined Congestive heart failure chronicity : chronic Qualified Code(s): I50.42 - Chronic combined systolic (congestive) and diastolic (congestive) heart failure (5) DVT prophylaxis Current visit: No Status: Acute Heparin subcutaneously. (6) Hyperkalemia Current visit: No Status: Acute Due to missing hemodialysis. Potassium 6.6. EKG shows no high T wave. Patient was treated with albuterol, insulin and glucose in emergency room. Nephrology consult was called, recommend Kayaxalate 30 g by mouth once and will arrange HD. (7) End stage renal disease Current visit: Yes Status: Chronic On hemodialysis (8) Ascites Current visit: No Status: Acute Patient has history of cirrhosis with ascites, need intermittent paracentesis. Had paracentesis in emergency room. Pericardial fluid analysis does not support a diagnosis of SBP. Qualifiers: Ascites type: due to alcoholic cirrhosis Qualified Code(s): K70.31 - Alcoholic cirrhosis of liver with ascites (9) Pneumonia Current visit: Yes Status: Acute Chest X ray shows pneumonia. Continue Leilani and Shana for healthcare associated pneumonia Qualifiers: Pneumonia type: due to Pneumococcus Laterality: bilateral Lung location: unspecified part of lung Qualified Code(s): J13 - Pneumonia due to Streptococcus pneumoniae Internal Medicine - H&P: HPI Chief complaint: Abdominal pain Admitted From: Home Plans for Post Hospital Care: Home History of present illness: Mr. Snyder is a 32 year old male with history of end-stage renal disease on hemodialysis, systolic CHF, cirrhosis with ascites, chronic suprapubic catheter , presented to the emergency room for abdominal pain. Patient said he has no scar congestion since Friday, with fever at 100 F. Denies a sore throat. Patient has a chronic cough, no sputum. He has nausea with little vomiting, no blood. Patient denies diarrhea. His last bowel movement is this morning. Patient has scheduled hemodialysis Friday/Friday/Friday. His last hemodialysis was this Friday. He did not have dialysis on Friday and Friday because that he feels not good. Past Med Surg Social Fam HX - Past Medical History Medical history: cardiomyopathy, CHF, dialysis, hypertension, liver disease, renal disease, other Psychiatric history: anxiety, depression - Past Surgical History Surgical History: orthopedic, other, vascular surgery, other - Social History Smoking Status: Current every day smoker Packs per day: <1 ppd Smokeless Tobacco Status: No Alcohol use: none Drug use: none - Family History Mother Adopted: No Living Status: Still Living Hx Family Cardiac Disorders: Yes (Stroke) Hx Family Respiratory Disorders: No Hx Family Cancer: No Hx Family GI Disorders: No Hx Family Endocrine Disorder: Yes (DM) Hx Family Neuromuscular Disorders: No Hx Family Neurologic Disorders: No Hx Family HEENT Disorders: No Hx Family Autoimmune Disorders: No Father Living Status: Still Living Hx Family Cardiac Disorders: Yes (CAD) Hx Family Respiratory Disorders: No Hx Family Cancer: No Hx Family GI Disorders: No Hx Family Endocrine Disorder: Yes (Diabetes) Hx Family Neuromuscular Disorders: No Hx Family Neurologic Disorders: No Hx Family HEENT Disorders: No Hx Family Autoimmune Disorders: No Internal Medicine - H&P: Meds Furosemide [Lasix] 80 mg PO BID #60 tablet 07/19/17 [Rx] Aspirin [Lo-Dose Aspirin EC] 81 mg PO DAILY 04/25/17 [History] Metoprolol XL (24 HR) Succ [Toprol Xl] 50 mg PO DAILY 04/25/17 [History] Sevelamer [Renvela] 1,600 mg PO TIDWM 04/25/17 [History] hydrALAZINE [HydrALAZINE] 10 mg PO Q6HR 04/25/17 [History] Isosorbide MONOnitrate (24 HR) [Imdur] 60 mg PO DAILY #30 tab 05/22/17 [Rx] 3 Allergy/AdvReac Type Severity Reaction Status Date / Time No Known Allergies Allergy Verified 06/02/17 17:59 All Systems PM: A 10-system review of systems was performed and is negative for pertinent findings except as documented above in the HPI. - Constitutional Vitals: Temp Pulse Resp BP Pulse Ox 100.7 F H 101 22 129/67 94 09/05/17 20:48 09/05/17 23:47 09/05/17 20:48 09/05/17 23:47 09/05/17 20:48 General appearance: Present: mild distress, A&O X 3, answers questions appropriately - Head Head exam: Present: atraumatic, normocephalic - Eye Eye exam: Present: PERRL, conjuntiva pink, sclera anicteric Pupils: Present: PERRL - Neck Neck exam general surgery: Present: supple, trachea midline. Absent: lymphadenopathy - Respiratory Respiratory exam: Present: CTAB. Absent: accessory muscle use, rales, rhonchi, wheezes - Cardiovascular Cardiovascular exam: Present: RRR, +S1, +S2. Absent: diastolic murmur, gallop, rubs, systolic murmur - GI/Abdominal GI/Abdominal exam: Present: normal bowel sounds, soft, tenderness (Patient has bilateral lower abdominal wall redness, tenderness, and warmth.), no peritoneal signs. Absent: distended Additional comments: Patient has a right inguinal hernia, no signs of incarceration - Extremities Exam Extremities exam: Present: pedal edema (Mild pedal edema bilaterally), warm, radial pulses palpable and symmetrical. Absent: calf tenderness, cyanotic - Neurological Exam Neurological exam: Present: CN II-XII intact, oriented X3, no focal deficits. Absent: pronater drift, facial droop, speech deficit - Skin Skin exam: Present: dry, intact Internal Med - H&P Results - Labs CBC & Chem 7: 09/05/17 14:08 09/05/17 14:08
[2017-09-06] MEDS: *HR* HYDROmorphone (PF) 1 MG/ML SYRINGE IVP PRN ×5 (01:53→21:27)
[2017-09-06 04:45] LABS: Calcium 8.9 mg/dL (8.6-10.3); Potassium 5.3 mEq/L (3.5-5.1)
[2017-09-06] MEDS: *HR* Heparin 5,000 UNIT/ML VIAL SQ SCH ×2 (05:54→17:19)
[2017-09-06] MEDS: hydrALAZINE 10 MG TABLET PO SCH ×4 (05:55→23:59)
[2017-09-06 06:11] LABS: Hematocrit 34.9 % (37.5-50.1); Hemoglobin 11.5 g/dL (12.9-16.9); Immature Platelets 8.5 % (1.1-6.1); Mean Corpuscular Hemoglobin 29.6 pg (28.0-33.3); Mean Corpuscular Volume 89.7 fL (83.0-100.0); Mean Platelet Volume 11.4 fL (9.4-12.4); Nucleated Red Blood Cells 0.2 /100 WBC (0); Red Blood Count 3.89 M/mcL (4.19-5.50); Red Cell Distribution Width 15.8 % (11.5-14.5)
[2017-09-06 06:45] LABS: Platelet Count 94 K/mcL (140-400)
[2017-09-06 06:47] LABS: Lymphocytes # 0.3 K/mcL (0.6-4.6); Monocytes # 0.3 K/mcL (0.0-1.3); Neutrophils # 15.4 K/mcL (1.6-8.9); Platelet Estimate Decreased (Normal)
[2017-09-06] MEDS: Furosemide 40 MG TABLET PO SCH ×2 (08:47→17:13)
[2017-09-06] MEDS: *HR* OxyCODONE Immed Rel 5 MG TABLET PO PRN ×3 (08:47→23:59)
[2017-09-06] MEDS: Isosorbide MONOnitrate (24 HR) 60 MG TAB.ER.24H PO SCH (08:47)
[2017-09-06] MEDS: Metoprolol XL (24 HR) Succ 50 MG TAB.ER.24H PO SCH (08:48)
[2017-09-06] MEDS: Aspirin Enteric Coated 81 MG Tablet PO SCH (08:48)
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
[2017-09-06] MEDS ORDERED: 0.9 % Sodium Chloride 250 ML IVC PRN (09:18)
[2017-09-06] MEDS ORDERED: 0.9 % Sodium Chloride 1,000 ML PRIME SCH (09:30)
--- NOTE | 2017-09-06 10:38 | Nephrology Consult Note ---
Date of Encounter: 09/06/17 Time of Encounter: 10:37 Assessment and Plan (1) Severe sepsis Current Visit: Yes Status: Acute Seems to be secondary to abdominal wall cellulitis. WBC improving suggesting response to antibiotics. Continue antibiotics. (2) End stage renal disease Current Visit: Yes Status: Chronic HD MWF and as needed. Renal diet Renal dose medications. Patient seen on dialysis today. (3) Cellulitis of abdominal wall Current Visit: Yes Status: Acute Continue antibiotics. No abcess seen on CT scan. (4) Ascites Current Visit: No Status: Acute Patient with abdominal pain, but no sign of SBP per his diagnostic tap. Primary team plans to perform a therapeutic paracentesis. (5) Hyperkalemia Current Visit: Yes Status: Acute Dialysis today. Renal diet. (6) Cirrhosis of liver with ascites Current Visit: No Status: Chronic Per primary team. Monitor for hepatic encephalopathy. Qualifiers: Hepatic cirrhosis type: unspecified hepatic cirrhosis Qualified Code(s): K74.60 - Unspecified cirrhosis of liver (7) Anemia Current Visit: No Status: Chronic Monitor for bleeding. Qualifiers: Qualified Code(s): D64.9 - Anemia, unspecified History of Present Illness - Reason for Consult Consult date: 09/06/17 end stage renal disease - Chief Complaint Not feeling well. - History of Present Illness Mr. Snyder is a 32 yo man with ESRD and recurrent ascites and frequent admissions to the hospital who presents with not feeling well for about a week. The patient is seen on dialysis. He states he has had chills at home for several days. He has redness on his abdomen along with abdominal wall redness. He missed several dialysis sessions this week. He is lethargic, but arousable at the time of my evaluation. He denies chest pain or dyspnea. Past Med Surg Social Fam HX - Past Medical History Medical history: cardiomyopathy, CHF, dialysis, hypertension, liver disease, renal disease, other Psychiatric history: anxiety, depression - Past Surgical History Surgical History: orthopedic, other, vascular surgery, other - Social History Smoking Status: Current every day smoker Packs per day: <1 ppd Smokeless Tobacco Status: No Alcohol use: none Drug use: none - Family History Mother Adopted: No Living Status: Still Living Hx Family Cardiac Disorders: Yes (Stroke) Hx Family Respiratory Disorders: No Hx Family Cancer: No Hx Family GI Disorders: No Hx Family Endocrine Disorder: Yes (DM) Hx Family Neuromuscular Disorders: No Hx Family Neurologic Disorders: No Hx Family HEENT Disorders: No Hx Family Autoimmune Disorders: No Father Living Status: Still Living Hx Family Cardiac Disorders: Yes (CAD) Hx Family Respiratory Disorders: No Hx Family Cancer: No Hx Family GI Disorders: No Hx Family Endocrine Disorder: Yes (Diabetes) Hx Family Neuromuscular Disorders: No Hx Family Neurologic Disorders: No Hx Family HEENT Disorders: No Hx Family Autoimmune Disorders: No Medications and Allergies Furosemide [Lasix] 80 mg PO BID #60 tablet 04/02/17 [Rx] Aspirin [Lo-Dose Aspirin EC] 81 mg PO DAILY 04/25/17 [History] Metoprolol XL (24 HR) Succ [Toprol Xl] 50 mg PO DAILY 04/25/17 [History] Sevelamer [Renvela] 1,600 mg PO TIDWM 04/25/17 [History] hydrALAZINE [HydrALAZINE] 10 mg PO Q6HR 04/25/17 [History] Isosorbide MONOnitrate (24 HR) [Imdur] 60 mg PO DAILY #30 tab 05/22/17 [Rx] 3 Allergy/AdvReac Type Severity Reaction Status Date / Time No Known Allergies Allergy Verified 06/02/17 17:59 Review of Systems All Systems: reviewed and no additional remarkable complaints except as stated ( as documented in the HPI.) Exam - Vital Signs Vital signs: Initial Vital Signs Temp Pulse Resp BP Pulse Ox 99.6 F 109 22 138/91 95 09/05/17 13:37 09/05/17 13:37 09/05/17 13:37 09/05/17 13:37 09/05/17 13:37 Vital Signs - Last 8 Hours Temp Pulse Resp BP Pulse Ox 09/06/17 06:50 100.6 F H 107 18 123/77 93 09/06/17 05:54 125/68 09/06/17 03:25 99.2 F 106 18 118/70 90 Intake and Output 09/05/17 09/06/17 09/06/17 23:59 07:59 15:59 Intake Total 250 / 260.1 1693 / 1693 Output Total 0 / 0 Balance 250 / 260.1 1693 / 1693 Intake: IV Fluids 250 / 250 773 / 773 0.9 % Sodium Chloride 1,000 ML 73 / 73 @ 60 mls/hr IVC .[id number] [facility] Rx #:[id number] Zithromax 500 mg In Dextrose 5% 250 / 250 250 ML @ 252 mls/hr IVPB ONCE ONE Rx#:[id number] Zosyn Premix 3.375 GM/200 ML 3. 200 / 200 375 gm In 200 ml @ 50 mls/hr IVPB Q8H [facility] Rx#:[id number] Vancocin 2,000 MG In Dextrose 5 500 / 500 % 500 ML @ 250 mls/hr IVPB ONCE ONE Rx#:[id number] Oral 0 / 0 920 / 920 Output: Urine 0 / 0 Other: Meal Breakfast Percent of Meal Consumed 0% Stool Size Moderate Stool Consistency liquid # Bowel Movements 1 Weight 156.8 kg Patient Weight 09/06/17 23:59 Weight 156.8 kg - General Appearance General appearance: well-developed, well-nourished, obese EENT: ATNC Neck: supple Respiratory: clear Cardiology: edema (1+ edema bilateral lower extremities. ) Additional Comments: tachycardic. - Dialysis Access Dialysis Vascular Access: Arteriovenous Fistula Gastrointestinal: normoactive bowel sounds, tenderness, distended Additional Comments: erythema on abdomen to the level of the umbilicus. Integumentary: erythema Neurologic: alert and oriented x3 (he is lethargic, but easily arousable. ) Musculoskeletal: erythema, no cyanosis Psychiatric: mood/affect appropriate Results - Lab Results 09/06/17 06:04 09/06/17 04:13 Most recent lab results Calcium 8.9 mg/dL (8.6-10.3) 09/06/17 04:13 Consult Discharge Plan - Plan Referrals: Lavon Estrada Jr, MD [Primary Care Provider] -
[2017-09-06] MEDS: Piperacillin/Tazobactam 3.375 GM/200 ML BAG IVPB SCH ×2 (14:18→23:59)
[2017-09-06 15:54] LABS: Chol/HDL Ratio 8.6 (0-4.9); Cholesterol 86 mg/dL (< 200); Ferritin > 1350 ng/ml (20-250); HDL Cholesterol 10 mg/dL (40-59); LDL Cholesterol,Calculated 42 mg/dL (0-99); Triglycerides 168 mg/dL (< 150)
[2017-09-06] MEDS: Ondansetron 4 MG/2 ML VIAL IVP PRN (17:21)
[2017-09-06 20:50] LABS: Hepatitis B Surface Antigen Nonreactive (Nonreactive)
[2017-09-06] MEDS ORDERED: 0.9 % Sodium Chloride 2,000 ML ONE (20:52)
[2017-09-07] MEDS: *HR* HYDROmorphone (PF) 1 MG/ML SYRINGE IVP PRN ×4 (01:29→17:17)
[2017-09-07] MEDS ORDERED: Vancomycin 1,000 MG in D5% in Water 250 ML IVPB ONE (02:00)
[2017-09-07] MEDS: Furosemide 40 MG TABLET PO SCH ×2 (08:40→17:17)
[2017-09-07] MEDS: Isosorbide MONOnitrate (24 HR) 60 MG TAB.ER.24H PO SCH (08:40)
[2017-09-07] MEDS: Metoprolol XL (24 HR) Succ 50 MG TAB.ER.24H PO SCH (08:40)
[2017-09-07] MEDS: Aspirin Enteric Coated 81 MG Tablet PO SCH (08:40)
[2017-09-07 10:01] LABS: Albumin 2.6 g/dL (3.5-5.7); Albumin/Globulin Ratio 0.9 (1.1-2.2); Bilirubin,Total 0.6 mg/dL (0.3-1.0); Calcium 8.6 mg/dL (8.6-10.3); Globulin 2.8 g/dL (2.4-3.5); Potassium 4.9 mEq/L (3.5-5.1); Total Protein 5.4 g/dL (6.4-8.9)
--- NOTE | 2017-09-07 10:13 | Nephrology Progress Note ---
Date of Encounter: 09/07/17 Time of Encounter: 10:11 - Assessment and Plan (1) Severe sepsis Current Visit: Yes Status: Acute Patient met criteria for severe sepsis upon admission. His WBC was decreasing as of yesterday. Awaiting WBC today. Patient is afebrile. Secondary to abdominal cellulitis without sign of abcess per admission CT. Consider demarking the area of cellulitis to evaluate for improvement or worsening of his cellulitis. (2) End stage renal disease Current Visit: Yes Status: Chronic HD MWF and as needed. Renal dose medications. REnal diet. Plan for dialysis today. (3) Cellulitis of abdominal wall Current Visit: Yes Status: Acute See severe sepsis. Continue antibiotics. (4) Ascites Current Visit: No Status: Acute Plan for paracentesis per primary team. May need to wait until cellulitis improves. (5) Hyperkalemia Current Visit: Yes Status: Acute Manage with dialysis. (6) Cirrhosis of liver with ascites Current Visit: Yes Status: Chronic See ascites. Per primary team. Qualifiers: Hepatic cirrhosis type: unspecified hepatic cirrhosis Qualified Code(s): K74.60 - Unspecified cirrhosis of liver (7) Anemia Current Visit: No Status: Chronic No sign of active bleeding. Monitor. Qualifiers: Qualified Code(s): D64.9 - Anemia, unspecified Subjective Principal diagnosis: ESRD Interval history: Patient seen and evaluated. He does not feel any different. His abdominal pain is still present. He denies dyspnea. Review of systems is otherwise stable. Objective - Vital Signs Vital signs: Vital Signs Temp Pulse Resp BP Pulse Ox 09/07/17 04:30 98.0 F 82 18 97/56 09/06/17 23:31 98.9 F 99 15 114/61 95 09/06/17 19:57 98.2 F 96 17 109/57 92 09/06/17 13:45 97.3 F L 18 121/67 09/06/17 13:35 109/58 09/06/17 13:20 146/66 09/06/17 13:05 119/64 09/06/17 12:50 124/58 09/06/17 12:35 106/59 09/06/17 12:20 109/66 09/06/17 12:05 113/64 09/06/17 11:50 111/64 09/06/17 11:35 107/54 12/23/17 11:20 117/64 09/06/17 11:05 125/56 09/06/17 10:50 110/62 09/06/17 10:35 98/57 09/06/17 10:20 103/51 Intake and Output 09/06/17 09/07/17 09/07/17 23:59 07:59 15:59 Intake Total 200 / 200 Balance 200 / 200 Intake: IV Fluids 200 / 200 Zosyn Premix 3.375 GM/200 ML 3. 200 / 200 375 gm In 200 ml @ 50 mls/hr IVPB Q12H [facility] Rx#:[id number] Oral 0 / 0 Other: Stool Size Moderate Stool Consistency formed Stool Characteristics Normal for Patient Stool Color Brown # Voids 0 0 # Bowel Movements 1 Weight 151.823 kg - General Appearance General appearance: Present: well-developed, well-nourished, obese EENT: Present: ATNC Neck: Present: supple Respiratory: Present: course breath sounds Cardiology: Present: edema, regular rate, regular rhythm Gastrointestinal: Present: tenderness, obese, distended Integumentary: Present: warm and dry, erythema Neurologic: Present: alert and oriented x3 Musculoskeletal: Present: no cyanosis Psychiatric: Present: mood/affect appropriate - Lab 09/06/17 06:04 09/07/17 05:10 Most recent lab results Calcium 8.6 mg/dL (8.6-10.3) 09/07/17 05:10 Consult Discharge Plan - Plan Referrals: Lavon Estrada Jr, MD [Primary Care Provider] -
[2017-09-07 10:41] LABS: Hemoglobin 10.1 g/dL (12.9-16.9); Mean Corpuscular Volume 91.4 fL (83.0-100.0); Red Cell Distribution Width 15.8 % (11.5-14.5)
[2017-09-07 10:42] LABS: Eosinophils % 0.3 %; Lymphocytes % 6.7 %
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
[2017-09-07 10:44] LABS: Basophils % 0.2 %; Hematocrit 31.7 % (37.5-50.1); Immature Platelets 9.4 % (1.1-6.1); Lymphocytes # 0.7 K/mcL (0.6-4.6); Mean Corpuscular HGB Conc 31.9 g/dL (31.6-35.5); Mean Corpuscular Hemoglobin 29.1 pg (28.0-33.3); Mean Platelet Volume 11.7 fL (9.4-12.4); Monocytes # 0.7 K/mcL (0.0-1.3); Monocytes % 7.2 %; Red Blood Count 3.47 M/mcL (4.19-5.50); Segmented Neutrophils % 84.6 %
[2017-09-07 10:53] LABS: Neutrophils # 8.5 K/mcL (1.6-8.9); Platelet Count 92 K/mcL (140-400)
[2017-09-07] MEDS ORDERED: 0.9 % Sodium Chloride 250 ML IVC PRN (10:57)
[2017-09-07] MEDS ORDERED: 0.9 % Sodium Chloride 2,000 ML ONE (13:56)
[2017-09-07 14:59] VITALS: BP 101/52
[2017-09-07] MEDS: hydrALAZINE 10 MG TABLET PO SCH ×2 (17:17)
[2017-09-08 08:49] LABS: Hepatitis A Antibody IgM Nonreactive (Nonreactive); Hepatitis B Core IgM Nonreactive (Nonreactive)
[2017-09-08 08:50] LABS: Hepatitis C Virus Antibody Nonreactive (Nonreactive)
--- NOTE | 2017-09-09 14:57 | Electrocardiograph Report ---
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
== END 2017-09-07 17:24 ==
LOC: 2ANU 13:28 → EMEROO 13:28 → 2ANU 20:20
PROVIDERS: ADMIT Internal Medicine; ATTEND Registered Nurse

== ENCOUNTER 2017-09-22 18:50 | Inpatient (IN) ==
[2017-09-22] MEDS ORDERED: Vancomycin 2,000 MG in D5% in Water 500 ML IVPB ONE (19:59)
[2017-09-22] MEDS ORDERED: 0.9 % Sodium Chloride 1,000 ML IVC ONE (19:59)
[2017-09-22] MEDS ORDERED: Levofloxacin 750 MG/150 ML 750 MG/150 ML BAG IVPB ONE (19:59)
[2017-09-22] MEDS ORDERED: Piperacillin/Tazobactam 3.375 GM in Water for inj. (sterile) 20 ML IVP ONE (19:59)
[2017-09-22] MEDS ORDERED: Ipratropium/Albuterol Neb 3 ML IH ONE (20:06)
[2017-09-22] MEDS ORDERED: Hydrocortisone Sodium Succ 100 MG/2 ML VIAL IVP ONE (20:07)
[2017-09-22 20:26] LABS: Basophils # 0.1 K/mcL (0.0-0.2); Basophils % 0.8 %; Eosinophils # 0.1 K/mcL (0.0-0.6); Eosinophils % 1.9 %; Hematocrit 35.7 % (37.5-50.1); Hemoglobin 11.1 g/dL (12.9-16.9); Immature Granulocytes % 0.3 % (0-4); Lymphocytes # 0.9 K/mcL (0.6-4.6); Lymphocytes % 13.9 %; Mean Corpuscular HGB Conc 31.1 g/dL (31.6-35.5); Mean Corpuscular Hemoglobin 28.8 pg (28.0-33.3); Mean Corpuscular Volume 92.7 fL (83.0-100.0); Mean Platelet Volume 9.9 fL (9.4-12.4); Monocytes # 0.5 K/mcL (0.0-1.3); Monocytes % 8.2 %; Neutrophils # 4.7 K/mcL (1.6-8.9); Platelet Count 203 K/mcL (140-400); Red Blood Count 3.85 M/mcL (4.19-5.50); Red Cell Distribution Width 15.4 % (11.5-14.5); Segmented Neutrophils % 74.9 %
[2017-09-22 20:32] LABS: INR 1.3; Prothrombin Time 13.9 Seconds (9.4-12.1)
[2017-09-22 20:38] LABS: Albumin 3.4 g/dL (3.5-5.7); Albumin/Globulin Ratio 0.8 (1.1-2.2); Bilirubin,Direct 0.1 mg/dL (0.0-0.2); Bilirubin,Indirect 0.6 mg/dL (0.0-1.2); Bilirubin,Total 0.7 mg/dL (0.3-1.0); Calcium 9.4 mg/dL (8.6-10.3); Globulin 4.4 g/dL (2.4-3.5); Magnesium 1.9 mg/dL (1.6-2.6); Phosphorous 5.7 mg/dL (2.7-4.5); Total Protein 7.8 g/dL (6.4-8.9)
[2017-09-22] MEDS ORDERED: *HR* HYDROmorphone (PF) 1 MG/ML SYRINGE IVP ONE (22:57)
[2017-09-22] MEDS ORDERED: 0.9 % Sodium Chloride 500 ML IVC ONE (22:57)
--- NOTE | 2017-09-22 23:00 | Emergency Department Note ---
Disposition Clinical Impression: Sepsis Qualifiers: Sepsis type: sepsis due to unspecified organism Qualified Code(s): A41.9 - Sepsis, unspecified organism Cellulitis Qualifiers: Site of cellulitis: trunk Site of cellulitis of trunk: abdominal wall Qualified Code(s): L03.311 - Cellulitis of abdominal wall Disposition: Admitted As Inpatient Condition: Fair Time of Disposition: 23:20 General Adult HPI - General Chief complaint: ED Abdominal Pain Stated complaint: right flank pain Time Seen by Provider: 09/22/17 19:20 Source: patient Mode of arrival: EMS Limitations: no limitations Nursing Notes Reviewed: Yes Vital Signs Reviewed: Yes - History of Present Illness HPI Narrative: Patient is a 32-year-old male with a past medical history of CHF, dialysis, hypertension, liver disease and renal disease presents immersed primary with complaints of feeling generally ill and pain over the left side of his abdomen. The pain appears to be superficial and diffuse on the left side with warmness. The patient states that he has had cough and fevers over the past few days, nonproductive. He came to the emergency department directly after dialysis today. Pain Scale: 7 - Related Data Home Medications Medication Instructions Recorded Confirmed Aspirin [Lo-Dose Aspirin EC] 81 mg PO DAILY 04/25/17 09/05/17 Metoprolol XL (24 HR) Succ [Toprol 50 mg PO DAILY 04/25/17 09/05/17 Xl] Sevelamer [Renvela] 1,600 mg PO TIDWM 04/25/17 09/05/17 hydrALAZINE [HydrALAZINE] 10 mg PO Q6HR 04/25/17 09/05/17 Previous Rx's Medication Instructions Recorded Furosemide [Lasix] 80 mg PO BID #60 tablet 04/02/17 Isosorbide MONOnitrate (24 HR) 60 mg PO DAILY #30 tab 05/22/17 [Imdur] Allergies Allergy/AdvReac Type Severity Reaction Status Date / Time No Known Allergies Allergy Verified 06/02/17 17:59 All systems ED: reviewed and negative except as stated. Review of Systems: As Per HPI Constitutional: Reports: fever, chills ENT ED: Reports: congestion Cardiovascular: Denies: chest pain, palpitations Respiratory: Reports: cough Gastrointestinal: Reports: abdominal pain. Denies: nausea, vomiting, diarrhea Musculoskeletal: Denies: back pain, neck pain Neurological: Denies: headache Past Medical History - Past Medical History Attestation: Yes The following information was validated with the patient. Medical history: Reports: cardiomyopathy, CHF, dialysis, hypertension, liver disease, renal disease, other Surgical history: Reports: orthopedic, other, vascular surgery, other Psychiatric history: Reports: anxiety, depression - Social History Smoking Status: Current every day smoker Smokeless Tobacco Status: No Alcohol use: Reports: none Drug use: Reports: none Physical Exam Patient is a 32-year-old male he speaks in full sentences does appear to be in mild distress at this time vital signs show tachycardia in the 110s, is hypertensive in the 170s/110s, respiratory rate is 18 and patient's current 98% on room air. - General Limitations: no limitations General appearance: alert, obese - Head Head exam: atraumatic, normocephalic, normal inspection - Eye Eye exam: Present: normal appearance, PERRL, EOMI - ENT ENT exam: normal exam, normal oropharynx - Neck Neck exam: Present: normal inspection, full ROM, trachea midline - Chest Chest inspection: Present: normal inspection, symmetric chest wall rise. Absent : tenderness - Respiratory Respiratory exam: Present: normal lung sounds bilaterally. Absent: respiratory distress, wheezes - Cardiovascular Cardiovascular exam: Present: tachycardia, normal heart sounds, +S1, +S2 - Abdominal Exam Abdominal exam: Present: tenderness, distention. Absent: guarding, rebound - Extremities Exam Extremities exam: Present: normal inspection, full ROM. Absent: tenderness - Back Exam Back exam: Present: normal inspection, full ROM. Absent: tenderness - Neurological Exam Neurological exam: Present: alert, oriented X3 - Psychiatric Psychiatric exam: Present: normal affect, normal mood - Skin Skin exam: Present: warm, dry, intact, other (Patient left side of his abdomen is warm to the touch this. Mildly erythematous however there is no drainage, crepitance, induration or fluctuance.) Course Course Narrative: Patient is a 32-year-old male has a history of dialysis with dialysis treatment today by a fistula in his left arm. Patient's vital signs showing signs of possible sepsis with tachycardia and his axis has been dropping below 95%. Plan is to start the patient on antibiotics for cellulitis versus SBP. Also order basic labs on the patient and CT of the abdomen and pelvis to rule out any intra-abdominal process. Patient is requesting to be transferred to [facility]. - Reevaluation(s) Reevaluation #1: Patient's lab work returned and he has an elevated BNP and the switch this is normal for him, he also has elevated troponin which appears chronic. CT of the patient's abdomen does show hepatosplenomegaly and a large amount of ascites not significantly changed from prior CT. Otherwise no other infectious etiology observed. Plan is to admit the patient for cellulitis. I [facility] is currently on diversion and they requested the patient be admitted to our hospital, will call the hospitalists. Patient was started on IV broad- spectrum antibiotics in the emergency Department no fluid resuscitation was performed Due To Patient Having History of Hemodialysis and Blood Pressure Being Stable and Lactic Acid Was within Normal Limits. Patient Is Accepted to the Hospitalists Dr. Chandler. Time: 23:19 Vital Signs Temperature 100.1 F H 09/22/17 19:12 Pulse Rate 109 09/22/17 19:12 Respiratory Rate 18 09/22/17 19:12 Blood Pressure 172/114 09/22/17 19:12 O2 Sat by Pulse Oximetry 99 09/22/17 19:12 Temperature 98.5 F 09/23/17 01:50 Pulse Rate 126 09/23/17 01:50 Respiratory Rate 18 09/23/17 01:50 Blood Pressure 170/110 09/23/17 01:50 O2 Sat by Pulse Oximetry 95 09/23/17 01:50 Oxygen Delivery Oxygen Delivery Nasal Cannula Medical Decision Making - Medical Records Medical records reviewed: Yes I reviewed the patient's medical records. - Lab Data Lab results reviewed: Yes I reviewed the patient's lab results. Result diagrams: 09/23/17 02:15 09/22/17 19:57 Lab Results 09/22/17 09/22/17 09/22/17 Range/Units 19:57 19:57 19:57 WBC 6.3 (4.3-11.1) K/mcL RBC 3.85 L (4.19-5.50) M/mcL Hgb 11.1 L (12.9-16.9) g/dL Hct 35.7 L (37.5-50.1) % MCV 92.7 (83.0-100.0) fL MCH 28.8 (28.0-33.3) pg MCHC 31.1 L (31.6-35.5) g/dL RDW 15.4 H (11.5-14.5) % Plt Count 203 (140-400) K/mcL MPV 9.9 (9.4-12.4) fL Immature Gran % 0.3 (0-4) % Seg Neutrophils % 74.9 % Lymphocytes % 13.9 % Monocytes % 8.2 % Eosinophils % 1.9 % Basophils % 0.8 % Neutrophils # 4.7 (1.6-8.9) K/mcL Lymphocytes # 0.9 (0.6-4.6) K/mcL Monocytes # 0.5 (0.0-1.3) K/mcL Eosinophils # 0.1 (0.0-0.6) K/mcL Basophils # 0.1 (0.0-0.2) K/mcL ESR (0-10) mm/hr PT 13.9 H (9.4-12.1) Seconds INR 1.3 APTT 36.0 (26.0-36.0) Seconds Sodium 138 (136-145) mEq/L Potassium 4.0 (3.5-5.1) mEq/L Chloride 95 L (98-107) mEq/L Carbon Dioxide 33 H (23-29) mEq/L BUN 27 H (6-20) mg/dL Creatinine 7.30 H (0.70-1.30) mg/dL Est GFR ( Amer) 11 L (> 60) Est GFR (Non-Af Amer) 9 L (> 60) BUN/Creatinine Ratio 4 L (6-26) Glucose 90 (70-105) mg/dL Calculated Osmolality 291 (280-300) Lactic Acid (0.5-2.2) mmol/L Calcium 9.4 (8.6-10.3) mg/dL Phosphorus 5.7 H (2.7-4.5) mg/dL Magnesium 1.9 (1.6-2.6) mg/dL Total Bilirubin 0.7 (0.3-1.0) mg/dL Direct Bilirubin 0.1 (0.0-0.2) mg/dL Indirect Bilirubin 0.6 (0.0-1.2) mg/dL AST 11 L (13-39) Units/L ALT 4 L (7-52) Units/L Alkaline Phosphatase 133 H (34-104) Units/L Troponin I (< 0.04) ng/mL C-Reactive Protein 25 H (Less than 10) mg/L B-Natriuretic Peptide (Less than 100) pg/mL Serum Total Protein 7.8 (6.4-8.9) g/dL Albumin 3.4 L (3.5-5.7) g/dL Globulin 4.4 H (2.4-3.5) g/dL Albumin/Globulin Ratio 0.8 L (1.1-2.2) Lipase 17 (11-82) Units/L Random Cortisol 17.6 mcg/dl 09/22/17 09/22/17 09/22/17 Range/Units 19:57 19:57 20:01 WBC (4.3-11.1) K/mcL RBC (4.19-5.50) M/mcL Hgb (12.9-16.9) g/dL Hct (37.5-50.1) % MCV (83.0-100.0) fL MCH (28.0-33.3) pg MCHC (31.6-35.5) g/dL RDW (11.5-14.5) % Plt Count (140-400) K/mcL MPV (9.4-12.4) fL Immature Gran % (0-4) % Seg Neutrophils % % Lymphocytes % % Monocytes % % Eosinophils % % Basophils % % Neutrophils # (1.6-8.9) K/mcL Lymphocytes # (0.6-4.6) K/mcL Monocytes # (0.0-1.3) K/mcL Eosinophils # (0.0-0.6) K/mcL Basophils # (0.0-0.2) K/mcL ESR 97 H (0-10) mm/hr PT (9.4-12.1) Seconds INR APTT (26.0-36.0) Seconds Sodium (136-145) mEq/L Potassium (3.5-5.1) mEq/L Chloride (98-107) mEq/L Carbon Dioxide (23-29) mEq/L BUN (6-20) mg/dL Creatinine (0.70-1.30) mg/dL Est GFR ( Amer) (> 60) Est GFR (Non-Af Amer) (> 60) BUN/Creatinine Ratio (6-26) Glucose (70-105) mg/dL Calculated Osmolality (280-300) Lactic Acid (0.5-2.2) mmol/L Calcium (8.6-10.3) mg/dL Phosphorus (2.7-4.5) mg/dL Magnesium (1.6-2.6) mg/dL Total Bilirubin (0.3-1.0) mg/dL Direct Bilirubin (0.0-0.2) mg/dL Indirect Bilirubin (0.0-1.2) mg/dL AST (13-39) Units/L ALT (7-52) Units/L Alkaline Phosphatase (34-104) Units/L Troponin I 0.06 H* (< 0.04) ng/mL C-Reactive Protein (Less than 10) mg/L B-Natriuretic Peptide 2616 H (Less than 100) pg/mL Serum Total Protein (6.4-8.9) g/dL Albumin (3.5-5.7) g/dL Globulin (2.4-3.5) g/dL Albumin/Globulin Ratio (1.1-2.2) Lipase (11-82) Units/L Random Cortisol mcg/dl 09/22/17 Range/Units 20:28 WBC (4.3-11.1) K/mcL RBC (4.19-5.50) M/mcL Hgb (12.9-16.9) g/dL Hct (37.5-50.1) % MCV (83.0-100.0) fL MCH (28.0-33.3) pg MCHC (31.6-35.5) g/dL RDW (11.5-14.5) % Plt Count (140-400) K/mcL MPV (9.4-12.4) fL Immature Gran % (0-4) % Seg Neutrophils % % Lymphocytes % % Monocytes % % Eosinophils % % Basophils % % Neutrophils # (1.6-8.9) K/mcL Lymphocytes # (0.6-4.6) K/mcL Monocytes # (0.0-1.3) K/mcL Eosinophils # (0.0-0.6) K/mcL Basophils # (0.0-0.2) K/mcL ESR (0-10) mm/hr PT (9.4-12.1) Seconds INR APTT (26.0-36.0) Seconds Sodium (136-145) mEq/L Potassium (3.5-5.1) mEq/L Chloride (98-107) mEq/L Carbon Dioxide (23-29) mEq/L BUN (6-20) mg/dL Creatinine (0.70-1.30) mg/dL Est GFR ( Amer) (> 60) Est GFR (Non-Af Amer) (> 60) BUN/Creatinine Ratio (6-26) Glucose (70-105) mg/dL Calculated Osmolality (280-300) Lactic Acid 0.9 (0.5-2.2) mmol/L Calcium (8.6-10.3) mg/dL Phosphorus (2.7-4.5) mg/dL Magnesium (1.6-2.6) mg/dL Total Bilirubin (0.3-1.0) mg/dL Direct Bilirubin (0.0-0.2) mg/dL Indirect Bilirubin (0.0-1.2) mg/dL AST (13-39) Units/L ALT (7-52) Units/L Alkaline Phosphatase (34-104) Units/L Troponin I (< 0.04) ng/mL C-Reactive Protein (Less than 10) mg/L B-Natriuretic Peptide (Less than 100) pg/mL Serum Total Protein (6.4-8.9) g/dL Albumin (3.5-5.7) g/dL Globulin (2.4-3.5) g/dL Albumin/Globulin Ratio (1.1-2.2) Lipase (11-82) Units/L Random Cortisol mcg/dl - Radiology Data Radiology results reviewed: Yes I reviewed the patient's radiology results. Chest X-Ray 09/22/17 19:59 IMPRESSION: No significant interval change. D/ / Frantz Robb MD / Frantz Robb MD Interpreting Provider: Frantz Robb MD Abdomen/Pelvis CT 09/22/17 20:01 IMPRESSION: 1. Hepatosplenomegaly and large amount of ascites not significantly changed. 2. Anasarca. 3. Suprapubic catheter 4. Right inguinal hernia containing fat and ascitic fluid. D/ / Mauricio Montes MD / Mauricio Montes MD Interpreting Provider: Mauricio Montes MD - EKG Data EKG #1 EKG attestation: Yes I reviewed and interpreted this EKG. EKG results narrative: EKG done at 20:10 shows sinus tachycardia rate 110 bpm. QRS is 106, QT is 330, QTC is 395 and these are within normal limits. Normal axis. No signs of ST elevation or depression or Q waves present. This is unchanged from old EKG done on 09/05/2017. Attestation Statement - Attestation Attestation: I, Wilfred Calderón DO, examined this patient [id number] and my medical decision-making was reviewed with Dr. Oli Hargrove, Resident Physician. I agree with the documented findings, disposition and treatment plan as described except to the extent set forth below. Please see my progress notes for details. 32-year-old male presents to emergency room for urgent dialysis for evaluation of generalized malaise and fever. Patient only completed half of his dialysis treatment here today. Patient has been feeling generally ill last several days. He was just discharged from [facility] where he is being treated for cellulitis on his left lower aspect of his abdomen. Patient describes some progression of pain in the lower part of his abdomen again here today. Currently on his initial presentation as heart rate was slightly elevated and his temperature was 100.1. Patient had stable vital signs otherwise with her elevated blood pressure but no other remarkable symptoms on presentation. IV access was obtained to evaluation and given an incremental boluses at this time. Screening septic evaluation to be started with CBC chemistry lactic acid troponin and BNP urinalysis if patient is able to provide details. 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 CT imaging of the abdomen and chest x-ray also be completed during this treatment course. Patient requested to be transferred to [facility] unfortunately they are on diversion today and have greater than 24 hour weight and boarded patients in the emergency room. Patient has what appears to be some aspect of a viral illness or a potential infectious etiology that we have not been able to identify during the treatment course here. Chest x-ray stable patient does have ascites but he does not have peritoneal symptoms on exam. He does have redness and irritation to the superficial skin in the lower part of the abdomen which could be consistent with his previous diagnosis of cellulitis. Labs otherwise unremarkable except for chronic renal insufficiency. His coagulation studies are otherwise stable. Patient will be admitted to our facility for definitive management of the what appears to be infectious etiology causing elevated temperature and heart rate. Symptomatically controlled to be provided. Lactic acid is stable. We will continue to monitor in the emergency room his treatment course is completed. Hospitalist patient and admission process established. No critical care applied to the patient's treatment course here in the emergency room at this time. Unknown etiology to appears to be infectious he presentation this point. Influenza was negative. Documentation of the physical exam, medical intervention, medical decision-making and disposition and the resident physician's note. Patient has chronically elevated troponin as well as BNP. The remainder of his workup is otherwise unremarkable. Symptoms are better at this time. Admission process completed at this point
[2017-09-23] MEDS ORDERED: Naloxone 0.4 MG/ML INJ IVP PRN (01:33)
[2017-09-23] MEDS ORDERED: *HR* HYDROmorphone (PF) 1 MG/ML SYRINGE IVP PRN (01:33)
[2017-09-23] MEDS ORDERED: 0.9 % Sodium Chloride 1,000 ML IVC SCH (01:45)
[2017-09-23] MEDS ORDERED: Vancomycin 2,000 MG in D5% in Water 250 ML IVPB SCH (02:00)
[2017-09-23 02:23] LABS: Basophils % 0.5 %; Eosinophils % 0.3 %; Hematocrit 29.5 % (37.5-50.1); Immature Granulocytes % 0.3 % (0-4); Lymphocytes # 0.5 K/mcL (0.6-4.6); Lymphocytes % 7.9 %; Mean Corpuscular HGB Conc 31.9 g/dL (31.6-35.5); Mean Corpuscular Hemoglobin 29.5 pg (28.0-33.3); Mean Corpuscular Volume 92.5 fL (83.0-100.0); Mean Platelet Volume 9.5 fL (9.4-12.4); Monocytes # 0.3 K/mcL (0.0-1.3); Monocytes % 5.4 %; Neutrophils # 5.2 K/mcL (1.6-8.9); Platelet Count 162 K/mcL (140-400); Red Blood Count 3.19 M/mcL (4.19-5.50); Red Cell Distribution Width 15.4 % (11.5-14.5); Segmented Neutrophils % 85.6 %
[2017-09-23 02:27] LABS: Hemoglobin 9.4 g/dL (12.9-16.9)
[2017-09-23 02:44] LABS: Calcium 8.8 mg/dL (8.6-10.3); Magnesium 1.7 mg/dL (1.6-2.6); Potassium 4.4 mEq/L (3.5-5.1)
[2017-09-23] MEDS: *HR* HYDROmorphone (PF) 1 MG/ML SYRINGE IVP PRN ×5 (05:24→22:16)
[2017-09-23] MEDS: *HR* Heparin 5,000 UNIT/ML VIAL SQ SCH ×2 (05:25→16:35)
[2017-09-23] MEDS: hydrALAZINE 10 MG TABLET PO SCH ×3 (05:25→16:35)
[2017-09-23] MEDS: Furosemide 40 MG TABLET PO SCH ×2 (08:34→21:42)
[2017-09-23] MEDS: Metoprolol XL (24 HR) Succ 50 MG TAB.ER.24H PO SCH (08:35)
[2017-09-23] MEDS: Isosorbide MONOnitrate (24 HR) 60 MG TAB.ER.24H PO SCH (08:35)
[2017-09-23] MEDS: Aspirin Enteric Coated 81 MG Tablet PO SCH (08:35)
[2017-09-23] MEDS ORDERED: Aminoglycoside Consult 1 EACH MC ONE (08:36)
--- NOTE | 2017-09-23 09:14 | Internal Med Progress Note ---
<Herberth Chandler - Last Filed: 09/23/17 13:07> Date of Encounter: 09/23/17 Time of Encounter: 09:12 - Assessment and plan (1) Sepsis Current Visit: Yes Status: Acute Assessment and plan: Likely from cellulitis of abdominal wall that was present on previous admission , but cannot rule out SBP Continue Vanc/Zosyn, IV day 2 Blood cultures pending Consult IR for paracentesis Cannot give aggressive fluids in setting of fluid overloaded state from ESRD/ cirrhosis/CHF Qualifiers: Sepsis type: sepsis due to unspecified organism Qualified Code(s): A41.9 - Sepsis, unspecified organism (2) Right flank pain Current Visit: Yes Status: Acute Assessment and plan: CT showed no evidence of kidney stone Patient states that pain is chronic and likely musculoskeletal in nature Continue pain control (3) Cellulitis Current Visit: Yes Status: Acute Assessment and plan: Abdominal cellulitis that was present on previous admission Continue Vanc/Zosyn, Levaquin IV day 2 Blood cultures pending Qualifiers: Site of cellulitis: trunk Site of cellulitis of trunk: abdominal wall Qualified Code(s): L03.311 - Cellulitis of abdominal wall (4) Ascites Current Visit: No Status: Acute Assessment and plan: Patient is scheduled for paracentesis. INR is 1.3 - Consult IR Cell count with diff ordered Qualifiers: Ascites type: due to alcoholic cirrhosis Qualified Code(s): K70.31 - Alcoholic cirrhosis of liver with ascites (5) Cirrhosis Current Visit: Yes Status: Acute Assessment and plan: Unclear etiology as patient was screened previously for hepatitis Paracentesis scheduled via IR Will obtain cell count w diff to evaluate for SBP MELD Score: 24 Qualifiers: Qualified Code(s): K74.60 - Unspecified cirrhosis of liver (6) ESRD (end stage renal disease) on dialysis Current Visit: No Status: Chronic Assessment and plan: Continue with dialysis as as scheduled Nephrology consulted to resume MWF (7) Systolic heart failure Current Visit: No Status: Chronic Assessment and plan: Continue with Toprol XL, Imdur, and Lasix Last echo one year ago did reveal EF 25% Start on fluid restriction diet of 1.5 L Qualifiers: Heart failure chronicity: chronic Qualified Code(s): I50.22 - Chronic systolic (congestive) heart failure (8) Hypertension Current Visit: No Status: Chronic Assessment and plan: Continue with hydralazine at home dose Also has IV Hydralazine PRN Qualifiers: Hypertension type: essential hypertension Qualified Code(s): I10 - Essential (primary) hypertension (9) DVT prophylaxis Current Visit: No Status: Acute Assessment and plan: Heparin SubQ BID - Time Spent With Patient 25 - 35 minutes - Subjective Interval history: Mr. Snyder is a 32 year old male with PMHx of CHF, ESRD, dialysis, HTN, and liver disease who was admitted yesterday from the ED after presenting from dialysis with a chief complaint of feeling generally ill and pain over the left side of his abdomen. He also states that he has been having a nonproductive cough and fevers over the last few days. In the ED, patient's vital signs were concerning for possible sepsis with tachycardia and sats dropping below 95%. Patient was started om antibiotics in the ED for cellulites versus SBP. A CT scan was performed to rule out any intra-abdominal abscess. Patient requested to be transferred to [facility], but they were on diversion, so he was admitted at [facility] for cellulitis. Labs showed BNP in the 1999s and mildly elevated troponin which appears to be chronic. Patient was started on IV broad-spectrum antibiotics. This morning, Mr. Snyder is A&O x 3 and sitting comfortably in his bed. He states that he feels "50/50" and that he feels approximately the same as yesterday. He states that he has a sharp pain "in my right kidney" and that it hurts whenever there is pressure placed on it. He states that he no longer wants to go to [facility], and would like to stay here. He initially wanted to go to [facility] because they had told him to come back there if he needed more medical care last time that he was there. - Constitutional Vitals: Temp Pulse Resp BP Pulse Ox 98.3 F 95 16 161/107 97 09/23/17 07:24 09/23/17 07:24 09/23/17 07:24 09/23/17 07:24 09/23/17 07:24 General appearance: Present: cooperative, A&O X 3, morbidly obese, pleasant - Head Head exam: Present: normal inspection - Respiratory Respiratory exam: Present: CTAB - Cardiovascular Cardiovascular exam: Present: distant heart sounds, RRR - GI/Abdominal GI/Abdominal exam: Present: distended, soft - Additional comments: Suprapubic catheter present with some urine inside - Back Exam Back exam: Present: CVA tenderness (R) - Neurological Exam Neurological exam: Present: alert - Skin Skin exam: Present: warm Additional comments: Mild cellulitis appreciated in the periumbilical region and panniculus Internal Medicine: Result - Labs CBC & Chem 7: 09/23/17 02:15 09/23/17 02:15 Labs: Short CBC 09/23/17 Range/Units 02:15 WBC 6.1 (4.3-11.1) K/mcL Hgb 9.4 L D (12.9-16.9) g/dL Hct 29.5 L (37.5-50.1) % Plt Count 162 (140-400) K/mcL Neutrophils # 5.2 (1.6-8.9) K/mcL BMP 09/23/17 02:15 Sodium 135 L Potassium 4.4 Chloride 96 L Carbon Dioxide 30 H BUN 29 H Creatinine 7.61 H Glucose 130 H Calcium 8.8 Cardiac Enzymes 09/23/17 09/23/17 Range/Units 02:15 07:42 Troponin I 0.06 H* 0.06 H* (< 0.04) ng/mL - ABG Interpretation ABG results: PT/INR, D-dimer PT 13.9 Seconds (9.4-12.1) H 09/22/17 19:57 Consult Discharge Plan - Plan Referrals: Genoveva Pepper, GEOMETRY TEACHER [Partnered Physician] - 10/01/17 10:30 am NONE,PCP [Non-Partnered Physician] - <Breana Cannon - Last Filed: 09/23/17 17:32> Date of Encounter: 09/23/17 - Constitutional Vitals: Temp Pulse Resp BP Pulse Ox 98.4 F 94 17 157/92 99 09/23/17 16:05 09/23/17 16:05 09/23/17 16:05 09/23/17 16:05 09/23/17 16:05 Internal Medicine: Result - Labs CBC & Chem 7: 09/23/17 02:15 09/23/17 02:15 Labs: Short CBC 09/23/17 Range/Units 02:15 WBC 6.1 (4.3-11.1) K/mcL Hgb 9.4 L D (12.9-16.9) g/dL Hct 29.5 L (37.5-50.1) % Plt Count 162 (140-400) K/mcL Neutrophils # 5.2 (1.6-8.9) K/mcL BMP 09/23/17 02:15 Sodium 135 L Potassium 4.4 Chloride 96 L Carbon Dioxide 30 H BUN 29 H Creatinine 7.61 H Glucose 130 H Calcium 8.8 Cardiac Enzymes 09/23/17 09/23/17 Range/Units 02:15 07:42 Troponin I 0.06 H* 0.06 H* (< 0.04) ng/mL - ABG Interpretation ABG results: PT/INR, D-dimer PT 13.9 Seconds (9.4-12.1) H 09/22/17 19:57 - Impressions Impressions Paracentesis Ultrasound 09/23/17 09:22 IMPRESSION: Successful ultrasound guided paracentesis. D/ / Lui Lezama MD / Lui Lezama MD Interpreting Provider: Lui Lezama MD - Attending Attestation I examined this patient and my medical decision-making was reviewed with the Resident Physician Dr. Chandler. I agree with the documented findings, disposition and treatment plan as described except to the extent set forth below. Mr. Snyder is a 32 year old male with PMHx of CHF, ESRD, dialysis, HTN, and liver disease who was admitted yesterday from the ED after presenting from dialysis with a chief complaint of feeling generally ill and pain over the left side of his abdomen. He does have diffuse anasarca. Denied any CP / SOB Gen: A, A, O x 3 Chest : Diminished BS b/l basal region, mild crackles Heart : S1 S2 + RRR No mururs abd: Soft, distended, ascities, fluid thrill. stretched lower abdomen wall with mild erythema a/p 1. Acute diffuse anasarca 2. ?? Cirrhosis of Liver 3. Severe non ischemic cardiomyopathy 4. Acute on chronic systolic CHF exacerbation 5. ESRD with HD Scheduled for paracentesis Albumin IV infusion after paracentesis will obtain medical records from [facility] He does need close f/u with Card.. may need LHC He might have Hepatic congestion with heart failure cont Lasix cont HD as per Nephro recommendation depending on [facility] records will consult card for further eval 6. Abdomen wall cellulites Pt does not meed Spesis criteria cont empirical abx Zosyn will change to pO in AM
[2017-09-23] MEDS: Piperacillin/Tazobactam 3.375 GM/200 ML BAG IVPB SCH ×2 (09:27→21:42)
--- NOTE | 2017-09-23 10:28 | Internal Med History&Physical ---
Date of Encounter: 09/23/17 Time of Encounter: 00:15 Assessment and Plan (1) Obesity, morbid, BMI 40.0-49.9 Current visit: No Status: Chronic need life style modification. (2) Tobacco abuse Current visit: No Status: Chronic Smoking cessation eduction. Pt doesn't want nicotine patch. (3) Acute systolic CHF (congestive heart failure) Current visit: No Status: Acute Cont home med of diuretics. (4) ESRD (end stage renal disease) on dialysis Current visit: No Status: Chronic Cont HD (5) COPD (chronic obstructive pulmonary disease) Current visit: No Status: Chronic No signs of exacerbation. Cont duoneb Qualifiers: COPD type: emphysema Emphysema type: other Qualified Code(s): J43.8 - Other emphysema (6) Suprapubic catheter Current visit: No Status: Acute (7) Cirrhosis of liver with ascites Current visit: No Status: Chronic Pt may need IR parecentesis Qualifiers: Hepatic cirrhosis type: unspecified hepatic cirrhosis Qualified Code(s): K74.60 - Unspecified cirrhosis of liver (8) DVT prophylaxis Current visit: No Status: Acute Heparin sc (9) Sepsis Current visit: Yes Status: Acute Pt meets sepsis criteria with fever and tachycardia. Infection site consider abd wall cellulitis, SBP cannot completely r/o as pt c/o abd pain and cannot distinguish it is caused by abd wall or inside. - Place pt on vanco and zosyn - IR paracentesis and peritoneal fluid analysis to r/o SBP. - F/u blood culture. Qualifiers: Sepsis type: sepsis due to unspecified organism Qualified Code(s): A41.9 - Sepsis, unspecified organism (10) Cellulitis of abdominal wall Current visit: No Status: Acute Place pt on vanco and zosyn Internal Medicine - H&P: HPI Chief complaint: Abd pain Admitted From: Home Plans for Post Hospital Care: Home History of present illness: Mr. Snyder is a 32 year old male with hx of ESRD on HD, cirrhosis with acsites, chronic suprapubic catheter, present to ER for abd pain for 2 days. Pt has known abd wall cellulitis and feels it is getting worse. Pt has subjective fever. He has nausea, and vomit clear liquid.He has cough and feels congestion in lung. Pt present to ER and was found temperature 100.1. Pt was admitted for abd wall cellulitis. CT abd done, no abscess identified. CXR unremarkable. Past Med Surg Social Fam HX - Past Medical History Medical history: cardiomyopathy, CHF, dialysis, hypertension, liver disease, renal disease, other Psychiatric history: anxiety, depression - Past Surgical History Surgical History: orthopedic, other, vascular surgery, other - Social History Smoking Status: Current every day smoker Packs per day: <0.5 Smokeless Tobacco Status: No Alcohol use: none Drug use: none - Family History Mother Adopted: No Living Status: Still Living Hx Family Cardiac Disorders: Yes (Stroke) Hx Family Respiratory Disorders: No Hx Family Cancer: No Hx Family GI Disorders: No Hx Family Endocrine Disorder: Yes (DM) Hx Family Neuromuscular Disorders: No Hx Family Neurologic Disorders: No Hx Family HEENT Disorders: No Hx Family Autoimmune Disorders: No Father Living Status: Hx Family Cardiac Disorders: Yes (CAD) Hx Family Respiratory Disorders: No Hx Family Cancer: No Hx Family GI Disorders: No Hx Family Endocrine Disorder: Yes (Diabetes) Hx Family Neuromuscular Disorders: No Hx Family Neurologic Disorders: No Hx Family HEENT Disorders: No Hx Family Autoimmune Disorders: No Internal Medicine - H&P: Meds Furosemide [Lasix] 80 mg PO BID #60 tablet 04/02/17 [Rx] Aspirin [Lo-Dose Aspirin EC] 81 mg PO DAILY 04/25/17 [History] Metoprolol XL (24 HR) Succ [Toprol Xl] 50 mg PO DAILY 04/25/17 [History] Sevelamer [Renvela] 1,600 mg PO TIDWM 04/25/17 [History] hydrALAZINE [HydrALAZINE] 10 mg PO Q6HR 04/25/17 [History] Isosorbide MONOnitrate (24 HR) [Imdur] 60 mg PO DAILY #30 tab 05/22/17 [Rx] 3 Allergy/AdvReac Type Severity Reaction Status Date / Time No Known Allergies Allergy Verified 06/02/17 17:59 All Systems PM: A 10-system review of systems was performed and is negative for pertinent findings except as documented above in the HPI. - Constitutional Vitals: Temp Pulse Resp BP Pulse Ox 98.3 F 95 16 161/107 97 09/23/17 07:24 09/23/17 07:24 09/23/17 07:24 09/23/17 07:24 09/23/17 07:24 General appearance: Present: cooperative, A&O X 3, morbidly obese, pleasant - Head Head exam: Present: atraumatic, normocephalic - Eye Eye exam: Present: PERRL, conjuntiva pink, sclera anicteric Pupils: Present: PERRL - Neck Neck exam general surgery: Present: supple, trachea midline. Absent: lymphadenopathy - Respiratory Respiratory exam: Present: CTAB. Absent: accessory muscle use, rales, rhonchi, wheezes - Cardiovascular Cardiovascular exam: Present: RRR, +S1, +S2. Absent: diastolic murmur, gallop, rubs, systolic murmur - GI/Abdominal GI/Abdominal exam: Present: distended, normal bowel sounds, soft, tenderness, no peritoneal signs Additional comments: LLQ abd wall swelling, redness, and tenderness. - Extremities Exam Extremities exam: Present: warm, radial pulses palpable and symmetrical. Absent : calf tenderness, cyanotic - Neurological Exam Neurological exam: Present: CN II-XII intact, oriented X3, no focal deficits. Absent: pronater drift, facial droop, speech deficit - Skin Skin exam: Present: dry, intact Internal Med - H&P Results - Labs CBC & Chem 7: 09/23/17 02:15 09/23/17 02:15 Labs: Short CBC 09/23/17 Range/Units 02:15 WBC 6.1 (4.3-11.1) K/mcL Hgb 9.4 L D (12.9-16.9) g/dL Hct 29.5 L (37.5-50.1) % Plt Count 162 (140-400) K/mcL Neutrophils # 5.2 (1.6-8.9) K/mcL BMP 09/23/17 02:15 Sodium 135 L Potassium 4.4 Chloride 96 L Carbon Dioxide 30 H BUN 29 H Creatinine 7.61 H Glucose 130 H Calcium 8.8 Cardiac Enzymes 09/23/17 09/23/17 Range/Units 02:15 07:42 Troponin I 0.06 H* 0.06 H* (< 0.04) ng/mL
--- NOTE | 2017-09-23 12:56 | Nephrology Consult Note ---
<Matilda Goldman Pramod - Last Filed: 09/23/17 13:01> Date of Encounter: 09/23/17 Time of Encounter: 12:54 Assessment and Plan (1) ESRD (end stage renal disease) on dialysis Status: Chronic Patient had 2 hours of HD treatment yesterday before signing off early Plan for UF today Plan for HD tomorrow Renal diet Fluid restriction 1.5 liters/day-ordered Strict I/Os-ordered Avoid nephrotoxins if possible (2) Right flank pain Status: Acute per primary team (3) Fluid overload Status: Acute see above Qualifiers: Hypervolemia type: other Qualified Code(s): E87.79 - Other fluid overload (4) Noncompliance with medication regimen Status: Acute Grossly non-compliant with HD treatments, renal diet, fluid restrictions, medications History of Present Illness - Reason for Consult Consult date: 09/23/17 end stage renal disease - Chief Complaint Right flank pain, ESRD on dialysis - History of Present Illness Mr. Snyder is a 32 year old male well known to our practce with a PMH of CHF, ESRD, dialysis, HTN, and liver disease who was admitted from the ED after presenting from dialysis with a chief complaint of feeling generally ill and pain over the left side of his abdomen. He did receive two hours of dialysis yesterday before signing off treatment early. Nephrology has been consulted to manage his HD while hospitalized. Past Med Surg Social Fam HX - Past Medical History Medical history: cardiomyopathy, CHF, dialysis, hypertension, liver disease, renal disease, other Psychiatric history: anxiety, depression - Past Surgical History Surgical History: orthopedic, other, vascular surgery, other - Social History Smoking Status: Current every day smoker Packs per day: <0.5 Smokeless Tobacco Status: No Alcohol use: none Drug use: none - Family History Mother Adopted: No Living Status: Still Living Hx Family Cardiac Disorders: Yes (Stroke) Hx Family Respiratory Disorders: No Hx Family Cancer: No Hx Family GI Disorders: No Hx Family Endocrine Disorder: Yes (DM) Hx Family Neuromuscular Disorders: No Hx Family Neurologic Disorders: No Hx Family HEENT Disorders: No Hx Family Autoimmune Disorders: No Father Living Status: Hx Family Cardiac Disorders: Yes (CAD) Hx Family Respiratory Disorders: No Hx Family Cancer: No Hx Family GI Disorders: No Hx Family Endocrine Disorder: Yes (Diabetes) Hx Family Neuromuscular Disorders: No Hx Family Neurologic Disorders: No Hx Family HEENT Disorders: No Hx Family Autoimmune Disorders: No Medications and Allergies Furosemide [Lasix] 80 mg PO BID #60 tablet 04/02/17 [Rx] Aspirin [Lo-Dose Aspirin EC] 81 mg PO DAILY 04/25/17 [History] Metoprolol XL (24 HR) Succ [Toprol Xl] 50 mg PO DAILY 04/25/17 [History] Sevelamer [Renvela] 1,600 mg PO TIDWM 04/25/17 [History] hydrALAZINE [HydrALAZINE] 10 mg PO Q6HR 04/25/17 [History] Isosorbide MONOnitrate (24 HR) [Imdur] 60 mg PO DAILY #30 tab 05/22/17 [Rx] GuaiFENesin/Dextromethorphan [Robitussin Cough-Chest Dm Liq] 237 ml PO Q4HR PRN #1 liquid 09/25/17 [Rx] Lisinopril [Zestril] 10 mg PO DAILY #30 tablet 09/25/17 [Rx] levoFLOXacin [Levaquin] 750 mg PO QMWF@1800 #3 tablet 09/25/17 [Rx] 3 Allergy/AdvReac Type Severity Reaction Status Date / Time No Known Allergies Allergy Verified 06/02/17 17:59 Review of Systems All Systems: reviewed and no additional remarkable complaints except as stated Constitutional: malaise, weight gain, no chills, no fever(s) Cardiovascular: leg edema, no chest pain, no dyspnea Gastrointestinal: abdominal pain Neurological: no behavioral changes Exam - Vital Signs Vital signs: Initial Vital Signs Temp Pulse Resp BP Pulse Ox 100.1 F H 109 18 172/114 99 09/22/17 19:12 09/22/17 19:12 09/22/17 19:12 09/22/17 19:12 09/22/17 19:12 Vital Signs - Last 8 Hours Temp Pulse Resp BP Pulse Ox 09/23/17 11:30 98.5 F 88 16 156/104 98 09/23/17 07:24 98.3 F 95 16 161/107 97 09/23/17 06:18 97.9 F 153/101 Intake and Output 09/22/17 09/23/17 09/23/17 23:59 07:59 15:59 Intake Total 740 / 2240 Output Total 0 / 0 Balance 740 / 2240 Intake: IV Fluids 500 / 500 0.9 % Sodium Chloride 500 ML @ 500 / 500 1875 mls/hr IVC .Q16M ONE Rx#: [id number] Oral 240 / 240 Output: Urine 0 / 0 Other: Weight 153.1 kg Patient Weight 09/23/17 23:59 Weight 153.1 kg - General Appearance General appearance: obese EENT: ATNC, mucous membranes moist, hearing intact, vision intact Neck: supple Respiratory: clear Cardiology: edema, normal S1, normal S2 Gastrointestinal: no tenderness, no guarding, obese Integumentary: warm and dry Neurologic: alert and oriented x3 Psychiatric: mood/affect appropriate, cooperative Results - Lab Results 09/23/17 02:15 09/23/17 02:15 Most recent lab results Calcium 8.8 mg/dL (8.6-10.3) 09/23/17 02:15 Phosphorus 5.7 mg/dL (2.7-4.5) H 09/22/17 19:57 Magnesium 1.7 mg/dL (1.6-2.6) 09/23/17 02:15 Consult Discharge Plan - Plan Instructions: Cellulitis (DC) Referrals: Genoveva Pepper CNP [Partnered Physician] - 10/01/17 10:30 am Prescriptions: GuaiFENesin/Dextromethorphan [Robitussin Cough-Chest Dm Liq] 237 ml PO Q4HR PRN #1 liquid PRN Reason: Cough levoFLOXacin [Levaquin] 750 mg PO QMWF@1800 #3 tablet Lisinopril [Zestril] 10 mg PO DAILY #30 tablet <Roz Fisher - Last Filed: 10/05/17 23:19> Date of Encounter: 09/23/17 Exam - Vital Signs Vital signs: Initial Vital Signs Temp Pulse Resp BP Pulse Ox 100.1 F H 109 18 172/114 99 09/22/17 19:12 09/22/17 19:12 09/22/17 19:12 09/22/17 19:12 09/22/17 19:12 Results - Lab Results 09/25/17 05:41 09/25/17 05:41 Most recent lab results Calcium 9.0 mg/dL (8.6-10.3) 09/25/17 05:41 Phosphorus 5.7 mg/dL (2.7-4.5) H 09/22/17 19:57 Magnesium 1.7 mg/dL (1.6-2.6) 09/23/17 02:15 - Attending Attestation I examined this patient and my medical decision-making was reviewed with the Resident Physician/DEICER INSPECTOR PNEUMATIC. I agree with the documented findings, disposition and treatment plan as described except to the extent set forth below. Pt seen and examined and in brief 32 y o male with PMH of ESRD on HD, HTN, CHF with recurrent pleural effusion s/p talc pleurodesis and recurrent ascites requiring recurrent paracentesis and overall noncompliance to diet, meds and HD treatments admitted with abdominal pain during dialysis which was subsequently aborted after only 2 out of 4 hours of treatment. Renal consulted for ESRD management. Initial plan was for UF today and then resume typical HD but first awaiting paracentesis before any treatments today.
[2017-09-23 14:06] LABS: RBC,Peritoneal Fluid < 0.002 M/mcL
[2017-09-23] MEDS: Albumin 25% 25gram/100mL 25 GM/100 ML IV.SOLN IVPB SCH ×2 (15:10→19:30)
[2017-09-23 15:20] LABS: Appearance of Peritoneal Fl CLEAR (Clear)
--- NOTE | 2017-09-23 20:07 | Electrocardiograph Report ---
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
[2017-09-23] MEDS: Ipratropium/Albuterol Neb 3 ML IH PRN (21:30)
[2017-09-24] MEDS: hydrALAZINE 10 MG TABLET PO SCH ×5 (00:14→23:21)
[2017-09-24] MEDS: Albumin 25% 25gram/100mL 25 GM/100 ML IV.SOLN IVPB SCH (02:33)
[2017-09-24] MEDS: *HR* HYDROmorphone (PF) 1 MG/ML SYRINGE IVP PRN ×2 (02:33→11:01)
[2017-09-24 02:53] LABS: Basophils % 0.9 %; Eosinophils # 0.1 K/mcL (0.0-0.6); Hematocrit 28.8 % (37.5-50.1); Immature Granulocytes % 0.5 % (0-4); Lymphocytes # 0.7 K/mcL (0.6-4.6); Lymphocytes % 16.4 %; Mean Corpuscular HGB Conc 31.3 g/dL (31.6-35.5); Mean Corpuscular Hemoglobin 28.9 pg (28.0-33.3); Mean Corpuscular Volume 92.6 fL (83.0-100.0); Mean Platelet Volume 10.2 fL (9.4-12.4); Monocytes # 0.5 K/mcL (0.0-1.3); Monocytes % 12.3 %; Neutrophils # 2.9 K/mcL (1.6-8.9); Platelet Count 149 K/mcL (140-400); Red Blood Count 3.11 M/mcL (4.19-5.50); Red Cell Distribution Width 15.4 % (11.5-14.5); Segmented Neutrophils % 66.9 %
[2017-09-24 03:20] LABS: Calcium 9.1 mg/dL (8.6-10.3); Potassium 4.8 mEq/L (3.5-5.1)
[2017-09-24] MEDS: Ondansetron 4 MG/2 ML VIAL IVP PRN ×2 (05:25→23:57)
[2017-09-24] MEDS: *HR* Heparin 5,000 UNIT/ML VIAL SQ SCH ×2 (05:25→18:35)
[2017-09-24] MEDS ORDERED: *HR* OxyCODONE Immed Rel 5 MG TABLET PO ONE (06:36)
[2017-09-24] MEDS: Furosemide 40 MG TABLET PO SCH ×2 (07:41→16:10)
[2017-09-24] MEDS: Aspirin Enteric Coated 81 MG Tablet PO SCH (07:41)
[2017-09-24] MEDS: Metoprolol XL (24 HR) Succ 50 MG TAB.ER.24H PO SCH (07:41)
[2017-09-24] MEDS: Isosorbide MONOnitrate (24 HR) 60 MG TAB.ER.24H PO SCH (07:42)
--- NOTE | 2017-09-24 08:26 | Internal Med Progress Note ---
<RameshHerberth - Last Filed: 09/24/17 13:27> Date of Encounter: 09/24/17 Time of Encounter: 08:24 - Assessment and plan (1) Sepsis Current Visit: Yes Status: Acute Assessment and plan: Likely from cellulitis of abdominal wall that was present on previous admission , but cannot rule out SBP Continue Zosyn day 2; Vanc stopped after 1 day Blood cultures pending Paracentesis did not show signs of SBP Cannot give aggressive fluids in setting of fluid overloaded state from ESRD/ cirrhosis/CHF White count remains normal and he has been afebrile and nontachycardic Qualifiers: Sepsis type: sepsis due to unspecified organism Qualified Code(s): A41.9 - Sepsis, unspecified organism (2) Right flank pain Current Visit: Yes Status: Acute Assessment and plan: Improved today, as patient is complaining more of pain from his paracentesis site Patient states that pain is chronic and likely musculoskeletal in nature Wean off IV analgesics and transition to oral (3) Cellulitis Current Visit: Yes Status: Acute Assessment and plan: Abdominal cellulitis was present on previous admission Continue Zosyn, Levaquin IV day 2 Blood cultures pending Qualifiers: Site of cellulitis: trunk Site of cellulitis of trunk: abdominal wall Qualified Code(s): L03.311 - Cellulitis of abdominal wall (4) Ascites Current Visit: No Status: Acute Assessment and plan: 11.5 L fluid removed from abdomen yesterday and he did receive 75 gm of albumin Analysis of fluid did not show evidence of SBP SAAG was found to be 1.6, suggesting portal hypertension Qualifiers: Ascites type: due to alcoholic cirrhosis Qualified Code(s): K70.31 - Alcoholic cirrhosis of liver with ascites (5) Cirrhosis Current Visit: Yes Status: Chronic Assessment and plan: Unclear etiology as patient was screened previously for hepatitis s/p Paracentesis with removal of 11.5 L MELD Score: 24 Qualifiers: Qualified Code(s): K74.60 - Unspecified cirrhosis of liver (6) ESRD (end stage renal disease) on dialysis Current Visit: No Status: Chronic Assessment and plan: Nephrology consulted to resume MWF Electrolytes within normal limits today (7) Systolic heart failure Current Visit: No Status: Chronic Assessment and plan: Continue with Toprol XL, Imdur, and Lasix Last echo one year ago did reveal EF 25% He has been noncompliant with [facility], but does follow up with [facility] Start on fluid restriction diet of 1.5 L Qualifiers: Heart failure chronicity: chronic Qualified Code(s): I50.22 - Chronic systolic (congestive) heart failure (8) Hypertension Current Visit: No Status: Chronic Assessment and plan: Continue with hydralazine and Toprol at home dose Also has IV Hydralazine PRN Qualifiers: Hypertension type: essential hypertension Qualified Code(s): I10 - Essential (primary) hypertension (9) DVT prophylaxis Current Visit: No Status: Acute Assessment and plan: Heparin SubQ BID - Subjective Interval history: Pt seen and examined. He is complaining of soreness at the site of the paracentesis but states his back pain has improved slightly since yesterday. Has complaints of nausea but relieved with Phenergan. He states he has had loose bowel movements as well. No shortness of breath, chest pain, fevers or chills. - Constitutional Vitals: Temp Pulse Resp BP Pulse Ox 98.7 F 94 15 156/99 97 09/24/17 07:12 09/24/17 07:12 09/24/17 07:12 09/24/17 07:12 09/24/17 07:12 General appearance: Present: cooperative, A&O X 3, morbidly obese, pleasant - Head Head exam: Present: atraumatic, normocephalic - Eye Eye exam: Present: PERRL, conjuntiva pink, sclera anicteric - Neck Neck exam general surgery: Present: supple, trachea midline. Absent: lymphadenopathy - Respiratory Respiratory exam: Present: CTAB. Absent: accessory muscle use, rales, rhonchi, wheezes - Cardiovascular Cardiovascular exam: Present: RRR, +S1, +S2. Absent: diastolic murmur, gallop, rubs, systolic murmur - GI/Abdominal GI/Abdominal exam: Present: normal bowel sounds, soft, no peritoneal signs. Absent: distended, tenderness - Extremities Exam Extremities exam: Present: pedal edema, warm, radial pulses palpable and symmetrical. Absent: calf tenderness, cyanotic - Neurological Exam Neurological exam: Present: alert, no focal deficits. Absent: facial droop, speech deficit - Skin Skin exam: Present: dry, intact Internal Medicine: Result - Labs CBC & Chem 7: 09/24/17 02:30 09/24/17 02:30 Labs: Short CBC 09/24/17 Range/Units 02:30 WBC 4.3 (4.3-11.1) K/mcL Hgb 9.0 L (12.9-16.9) g/dL Hct 28.8 L (37.5-50.1) % Plt Count 149 (140-400) K/mcL Neutrophils # 2.9 (1.6-8.9) K/mcL BMP 09/24/17 02:30 Sodium 135 L Potassium 4.8 Chloride 96 L Carbon Dioxide 30 H BUN 37 H Creatinine 9.09 H Glucose 85 Calcium 9.1 - ABG Interpretation ABG results: PT/INR, D-dimer PT 13.9 Seconds (9.4-12.1) H 09/22/17 19:57 - Impressions Impressions Paracentesis Ultrasound 09/23/17 09:22 IMPRESSION: Successful ultrasound guided paracentesis. D/ / Lui Lezama MD / Lui Lezama MD Interpreting Provider: Lui Lezama MD Consult Discharge Plan - Plan Referrals: Genoveva Pepper, CUSTOMER ENGAGEMENT ANALYST [Partnered Physician] - 10/01/17 10:30 am NONE,PCP [Non-Partnered Physician] - <Breana Cannon - Last Filed: 09/24/17 15:30> Date of Encounter: 09/24/17 - Constitutional Vitals: Temp Pulse Resp BP Pulse Ox 99.7 F H 98 15 176/94 93 09/24/17 15:09 09/24/17 15:09 09/24/17 15:09 09/24/17 15:09 09/24/17 15:09 Internal Medicine: Result - Labs CBC & Chem 7: 09/24/17 02:30 09/24/17 02:30 Labs: Short CBC 09/24/17 Range/Units 02:30 WBC 4.3 (4.3-11.1) K/mcL Hgb 9.0 L (12.9-16.9) g/dL Hct 28.8 L (37.5-50.1) % Plt Count 149 (140-400) K/mcL Neutrophils # 2.9 (1.6-8.9) K/mcL BMP 09/24/17 02:30 Sodium 135 L Potassium 4.8 Chloride 96 L Carbon Dioxide 30 H BUN 37 H Creatinine 9.09 H Glucose 85 Calcium 9.1 - ABG Interpretation ABG results: PT/INR, D-dimer PT 13.9 Seconds (9.4-12.1) H 09/22/17 19:57 - Attending Attestation I examined this patient and my medical decision-making was reviewed with the Resident Physician Dr. Chandler. I agree with the documented findings, disposition and treatment plan as described except to the extent set forth below. Mr. Snyder is a 32 year old male with PMHx of CHF, ESRD, dialysis, HTN, and liver disease who was admitted yesterday from the ED after presenting from dialysis with a chief complaint of feeling generally ill and pain over the left side of his abdomen. He does have diffuse anasarca. Denied any CP / SOB.. Feeling little better today Gen: A, A, O x 3 Chest : Diminished BS b/l basal region, mild crackles Heart : S1 S2 + RRR No mururs abd: Soft, distended, ascities, fluid thrill. stretched lower abdomen wall with mild erythema a/p 1. Acute diffuse anasarca 2. ?? Cirrhosis of Liver 3. Severe non ischemic cardiomyopathy 4. Acute on chronic systolic CHF exacerbation 5. ESRD with HD removed 11.5 lit fluid with paracentesis Received Albumin IV infusion after paracentesis Still waiting on medical records from [facility] Pt seems to be non compliance with his appointments so counseled the pt about importance of following with all the specialists He might have Hepatic congestion with heart failure cont Lasix cont HD as per Nephro recommendation 6. Abdomen wall cellulites Pt does not meet Spesis criteria switch to PO Abx Levaquin waiting on blood cx
[2017-09-24] MEDS ORDERED: 0.9 % Sodium Chloride 250 ML IVC PRN (08:32)
[2017-09-24] MEDS ORDERED: 0.9 % Sodium Chloride 1,000 ML PRIME SCH (08:45)
[2017-09-24] MEDS ORDERED: 0.9 % Sodium Chloride 2,000 ML ONE (10:42)
[2017-09-24] MEDS ORDERED: *HR* HYDROmorphone (PF) 1 MG/ML SYRINGE IVP PRN (13:32)
[2017-09-24] MEDS ORDERED: Piperacillin/Tazobactam 3.375 GM/200 ML BAG IVPB SCH (15:00)
[2017-09-24] MEDS: *HR* OxyCODONE/APAP 5/325 TABLET PO PRN ×2 (16:10→22:13)
[2017-09-24] MEDS ORDERED: levoFLOXacin 750 MG TABLET PO SCH (18:00)
--- NOTE | 2017-09-24 21:46 | Nephrology Progress Note ---
Date of Encounter: 09/24/17 Time of Encounter: 12:00 - Assessment and Plan (1) ESRD (end stage renal disease) on dialysis Status: Chronic Continue HD with UF as tolerated Continue renal diet Continue fluid restrictionat 1 liter a day (2) Noncompliance Status: Acute Counselled pt once again on adherence with renal diet, fluid restriction and meds (3) Volume overload Status: Acute Continue aggressive UF as tolerated Qualifiers: Hypervolemia type: unspecified Qualified Code(s): E87.70 - Fluid overload, unspecified Subjective Interval history: Pt seen and examined on HD s/p paracentesis yesterday with 11kg removed and feels better overall Objective - Vital Signs Vital signs: Vital Signs Temp Pulse Resp BP Pulse Ox 09/24/17 19:38 92 09/24/17 19:35 98.7 F 89 18 126/75 92 09/24/17 16:17 93 09/24/17 15:09 99.7 F H 98 15 176/94 93 09/24/17 14:00 98.4 F 18 151/58 09/24/17 13:40 151/58 09/24/17 13:25 129/56 09/24/17 13:10 148/80 09/24/17 12:55 119/60 09/24/17 12:40 168/89 09/24/17 12:25 160/85 09/24/17 12:10 154/81 09/24/17 11:55 152/85 09/24/17 11:40 144/76 09/24/17 11:25 135/80 09/24/17 11:10 153/88 09/24/17 10:55 147/71 09/24/17 10:40 155/81 09/24/17 10:25 158/72 09/24/17 10:10 157/82 09/24/17 09:55 153/88 09/24/17 09:40 98.6 F 18 160/88 09/24/17 07:12 98.7 F 94 15 156/99 97 09/24/17 04:35 98.4 F 89 17 156/95 98 09/24/17 00:10 98.4 F 92 16 150/101 95 Intake and Output 09/24/17 09/24/17 09/24/17 07:59 15:59 23:59 Intake Total 910 / 910 1080 / 1080 360 / 360 Output Total 5600 / 5600 Balance 910 / 910 -4520 / -4520 360 / 360 Intake: IV Fluids 300 / 300 Flexbumin 25 gm In 100 ml @ 60 100 / 100 mls/hr IVPB Q4H [facility] Rx#: [id number] Zosyn Premix 3.375 GM/200 ML 3. 200 / 200 375 gm In 200 ml @ 50 mls/hr IVPB Q12H [facility] Rx#:[id number] Oral 610 / 610 480 / 480 360 / 360 Intake, Rinseback and Flushes 600 / 600 Output: Urine 0 / 0 Total Dialysis (HD) Output 5600 / 5600 Other: Meal Breakfast Dinner Percent of Meal Consumed 100% 100% Weight 144.6 kg 64.365 kg Hemodialysis Net Fluid Removed 5000 (mL) Patient Weight 09/24/17 23:59 Weight 64.365 kg - General Appearance General appearance: Present: chronically ill EENT: Present: ATNC, mucous membranes moist Neck: Present: supple Respiratory: Present: clear Cardiology: Present: edema (LE bilat), normal S1, normal S2 Dialysis Vascular Access: Arteriovenous Fistula thrill: Yes bruit: Yes Gastrointestinal: Present: no tenderness, no guarding, obese Integumentary: Present: warm and dry Neurologic: Present: no focal deficit Musculoskeletal: Present: no deformities Psychiatric: Present: cooperative - Lab 09/25/17 05:41 09/25/17 05:41 Most recent lab results Calcium 9.1 mg/dL (8.6-10.3) 09/24/17 02:30 Phosphorus 5.7 mg/dL (2.7-4.5) H 09/22/17 19:57 Magnesium 1.7 mg/dL (1.6-2.6) 09/23/17 02:15 Consult Discharge Plan - Plan Instructions: Cellulitis (DC) Referrals: Genoveva Pepper CNP [Partnered Physician] - 10/01/17 10:30 am Prescriptions: GuaiFENesin/Dextromethorphan [Robitussin Cough-Chest Dm Liq] 237 ml PO Q4HR PRN #1 liquid PRN Reason: Cough levoFLOXacin [Levaquin] 750 mg PO QMWF@1800 #3 tablet Lisinopril [Zestril] 10 mg PO DAILY #30 tablet
[2017-09-25] MEDS: Ipratropium/Albuterol Neb 3 ML IH PRN (00:02)
[2017-09-25] MEDS: *HR* OxyCODONE/APAP 5/325 TABLET PO PRN ×2 (05:22→12:11)
[2017-09-25] MEDS: hydrALAZINE 10 MG TABLET PO SCH (05:22)
[2017-09-25] MEDS: *HR* Heparin 5,000 UNIT/ML VIAL SQ SCH (05:35)
[2017-09-25 05:55] LABS: Basophils % 0.9 %; Eosinophils # 0.1 K/mcL (0.0-0.6); Eosinophils % 3.2 %; Hematocrit 28.1 % (37.5-50.1); Hemoglobin 8.8 g/dL (12.9-16.9); Immature Granulocytes % 0.3 % (0-4); Lymphocytes # 0.6 K/mcL (0.6-4.6); Lymphocytes % 16.2 %; Mean Corpuscular HGB Conc 31.3 g/dL (31.6-35.5); Mean Corpuscular Hemoglobin 28.7 pg (28.0-33.3); Mean Corpuscular Volume 91.5 fL (83.0-100.0); Mean Platelet Volume 9.9 fL (9.4-12.4); Monocytes # 0.5 K/mcL (0.0-1.3); Monocytes % 13.3 %; Neutrophils # 2.2 K/mcL (1.6-8.9); Platelet Count 131 K/mcL (140-400); Red Blood Count 3.07 M/mcL (4.19-5.50); Red Cell Distribution Width 15.2 % (11.5-14.5); Segmented Neutrophils % 66.1 %
[2017-09-25 06:11] LABS: Potassium 4.3 mEq/L (3.5-5.1)
[2017-09-25] MEDS ORDERED: hydrALAZINE 10 MG TABLET PO SCH (07:38)
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
[2017-09-25] MEDS: Aspirin Enteric Coated 81 MG Tablet PO SCH (10:21)
[2017-09-25] MEDS: Metoprolol XL (24 HR) Succ 50 MG TAB.ER.24H PO SCH (10:21)
[2017-09-25] MEDS: Isosorbide MONOnitrate (24 HR) 60 MG TAB.ER.24H PO SCH (10:21)
[2017-09-25] MEDS: Furosemide 40 MG TABLET PO SCH (10:21)
--- NOTE | 2017-09-25 11:08 | Nephrology Progress Note ---
<Matilda Goldman - Last Filed: 09/25/17 11:09> Date of Encounter: 09/25/17 Time of Encounter: 11:06 - Assessment and Plan (1) ESRD (end stage renal disease) on dialysis Status: Chronic Plan for UF x 2 hours today before discharge Follow up tomorrow in regular HD center [facility] Avoid nephrotoxins if possible (2) Right flank pain Status: Acute per primary team (3) Fluid overload Status: Acute see above Qualifiers: Hypervolemia type: other Qualified Code(s): E87.79 - Other fluid overload (4) Noncompliance with medication regimen Status: Acute Grossly non-compliant with HD treatments, renal diet, fluid restriction Subjective Principal diagnosis: ESRD on dialysis, fluid overload Interval history: Patient seen and examined. To be discharged today Objective - Vital Signs Vital signs: Vital Signs Temp Pulse Resp BP Pulse Ox 09/25/17 08:29 98.2 F 94 18 153/83 94 09/25/17 05:16 160/90 09/25/17 03:26 98.5 F 104 18 161/100 95 09/25/17 02:46 155/82 09/25/17 00:51 105 09/25/17 00:02 16 95 09/24/17 23:23 98.9 F 123 18 156/99 95 09/24/17 19:38 92 09/24/17 19:35 98.7 F 89 18 126/75 92 09/24/17 16:17 93 09/24/17 15:09 99.7 F H 98 15 176/94 93 09/24/17 14:00 98.4 F 18 151/58 09/24/17 13:40 151/58 09/24/17 13:25 129/56 09/24/17 13:10 148/80 09/24/17 12:55 119/60 09/24/17 12:40 168/89 09/24/17 12:25 160/85 09/24/17 12:10 154/81 09/24/17 11:55 152/85 09/24/17 11:40 144/76 09/24/17 11:25 135/80 09/24/17 11:10 153/88 Intake and Output 09/24/17 09/25/17 09/25/17 23:59 07:59 15:59 Intake Total 360 / 360 700 / 700 30 / 30 Output Total 0 / 0 Balance 360 / 360 700 / 700 30 / 30 Intake: Oral 360 / 360 700 / 700 30 / 30 Output: Urine 0 / 0 Other: Meal Dinner Percent of Meal Consumed 100% Weight 142.791 kg Patient Weight 09/25/17 23:59 Weight 142.791 kg - General Appearance General appearance: Present: obese EENT: Present: ATNC, mucous membranes moist, hearing intact, vision intact Neck: Present: supple Respiratory: Present: clear Cardiology: Present: edema, normal S1, normal S2 Dialysis Vascular Access: Arteriovenous Fistula Gastrointestinal: Present: no tenderness, no guarding Integumentary: Present: warm and dry Neurologic: Present: alert and oriented x3 Psychiatric: Present: mood/affect appropriate, cooperative - Lab 09/25/17 05:41 09/25/17 05:41 Most recent lab results Calcium 9.0 mg/dL (8.6-10.3) 09/25/17 05:41 Phosphorus 5.7 mg/dL (2.7-4.5) H 09/22/17 19:57 Magnesium 1.7 mg/dL (1.6-2.6) 09/23/17 02:15 Consult Discharge Plan - Plan Instructions: Cellulitis (DC) Referrals: Genoveva Pepper CNP [Partnered Physician] - 10/01/17 10:30 am Prescriptions: GuaiFENesin/Dextromethorphan [Robitussin Cough-Chest Dm Liq] 237 ml PO Q4HR PRN #1 liquid PRN Reason: Cough levoFLOXacin [Levaquin] 750 mg PO QMWF@1800 #3 tablet Lisinopril [Zestril] 10 mg PO DAILY #30 tablet <Roz Fisher - Last Filed: 11/07/17 09:00> Date of Encounter: 09/25/17 - Assessment and Plan (1) ESRD (end stage renal disease) on dialysis Status: Chronic (2) Noncompliance Status: Acute (3) Volume overload Status: Acute Qualifiers: Hypervolemia type: unspecified Qualified Code(s): E87.70 - Fluid overload, unspecified Objective - Lab 09/25/17 05:41 09/25/17 05:41 Most recent lab results Calcium 9.0 mg/dL (8.6-10.3) 09/25/17 05:41 Phosphorus 5.7 mg/dL (2.7-4.5) H 09/22/17 19:57 Magnesium 1.7 mg/dL (1.6-2.6) 09/23/17 02:15 - Attending Attestation I examined this patient and my medical decision-making was reviewed with the Resident Physician/SKOOG OPERATOR. I agree with the documented findings, disposition and treatment plan as described except to the extent set forth below. Pt seen and examined on UF feeling better. Will continue UF goal of 4-5kg as tolerated. Pt to resume outpatient HD tomorrow once discharged. Fluid restriction advised.
[2017-09-25] MEDS ORDERED: 0.9 % Sodium Chloride 250 ML IVC PRN (13:05)
[2017-09-25 15:57] VITALS: BP 174/92
== END 2017-09-25 15:00 | disposition home or self-care (01) | DRG 871 ==
LOC: EMEROO 18:50 → 2NNU 18:50 → SUATTDRO 09-23 01:33 → 2NNU 09-23 01:36 → 2ANU 09-24 12:18
PROVIDERS: ADMIT Internal Medicine; ATTEND Family Medicine

== ENCOUNTER 2018-01-05 17:52 | Inpatient (IN) ==
[2018-01-05 18:26] LABS: Basophils % 0.6 %; Eosinophils # 0.3 K/mcL (0.0-0.6); Eosinophils % 4.2 %; Hematocrit 36.9 % (37.5-50.1); Hemoglobin 11.9 g/dL (12.9-16.9); Immature Granulocytes % 0.3 % (0-4); Lymphocytes # 0.9 K/mcL (0.6-4.6); Mean Corpuscular HGB Conc 32.2 g/dL (31.6-35.5); Mean Corpuscular Hemoglobin 29.7 pg (28.0-33.3); Monocytes # 0.5 K/mcL (0.0-1.3); Monocytes % 7.4 %; Neutrophils # 5.4 K/mcL (1.6-8.9); Platelet Count 173 K/mcL (140-400); Red Blood Count 4.01 M/mcL (4.19-5.50); Red Cell Distribution Width 15.3 % (11.5-14.5); Segmented Neutrophils % 74.5 %
--- NOTE | 2018-01-05 18:37 | Emergency Department Note ---
Disposition Clinical Impression: CHF (congestive heart failure), ESRD (end stage renal disease) Disposition: Admitted As Inpatient Condition: Fair Referrals: NONE,PCP [Primary Care Provider] - Forms: ED Satisfaction Letter Time of Disposition: 21:14 Chest Pain HPI - General Chief Complaint: ED Chest Pain Stated Complaint: CP Time Seen by Provider: 01/05/18 17:53 Source: patient Limitations: no limitations Vital Signs Reviewed: Yes Nursing Notes Reviewed: Yes - History of Present Illness HPI Narrative: Patient is a 32-year-old male past medical history of end-stage renal disease on dialysis, digestive heart failure, hypertension that presents for chest pain and abdominal distention. Patient says that he missed his dialysis today due to the center being closed. Patient says that he has had abdominal distention for the past day. Space about 2 hours ago he began to complain of chest pain that he rates as a 5 out of 10 on the pain scale, pressure-like, non-radiating, and exacerbated by exertion. Patient admits to aspirin use within the past 3 days. He admits to a clear productive cough.He denies any orthopnea.She denies any fever or chills. Patient does say that he was recently diagnosed with a UTI 2 weeks ago.He denies any dysuria or hematuria.He denies any hematochezia or melena. Denies any diarrhea or constipation. Severity scale (1-10): 7 - Related Data Home Medications Medication Instructions Recorded Confirmed Aspirin [Lo-Dose Aspirin EC] 81 mg PO DAILY 04/25/17 12/08/17 Metoprolol XL (24 HR) Succ [Toprol 50 mg PO DAILY 04/25/17 12/08/17 Xl] Sevelamer [Renvela] 1,600 mg PO TIDWM 04/25/17 12/08/17 Cinacalcet HCl [Sensipar] 90 mg PO DAILY 12/08/17 12/08/17 Previous Rx's Medication Instructions Recorded Lisinopril [Zestril] 10 mg PO DAILY #30 tablet 09/25/17 Sulfamethoxazole/Trimeth DS 1 each PO BID #14 tablet 12/08/17 [Bactrim DS] Allergies Allergy/AdvReac Type Severity Reaction Status Date / Time No Known Allergies Allergy Verified 12/08/17 09:38 Constitutional: Reports: weight change. Denies: fever, chills, weakness Cardiovascular: Reports: chest pain, dyspnea on exertion, edema. Denies: orthopnea Respiratory: Reports: cough, dyspnea Gastrointestinal: Reports: abdominal pain. Denies: nausea, vomiting, diarrhea, constipation, hematemesis, melena, hematochezia Genitourinary: Denies: urgency, dysuria, frequency, hematuria Chest Pain PMH - Past Medical History Medical history: Reports: cardiomyopathy, CHF, dialysis, hypertension, liver disease, renal disease, other Surgical history: Reports: orthopedic, other, vascular surgery, other Psychiatric history: Reports: anxiety, depression - Social History Smoking Status: Current every day smoker Alcohol use: Reports: none Drug use: Reports: none Physical Exam - General Limitations: no limitations General appearance: alert - Chest Chest inspection: Present: normal inspection, symmetric chest wall rise - Respiratory Respiratory exam: Present: wheezes (B/L). Absent: respiratory distress, stridor , accessory muscle use - Cardiovascular Cardiovascular exam: Present: regular rate, normal rhythm, normal heart sounds, +S1, +S2. Absent: +S3, +S4 - Abdominal Exam Abdominal exam: Present: soft, Non-Tender, distention, ascites. Absent: guarding, rebound - Extremities Exam Extremities exam: Present: pedal edema (+3 pedal edema. L worse than R) - Expanded Lower Extremity Exam Lower leg exam: Absent: tenderness, Homans' sign Course Course Narrative: Patient's labs demonstrated an elevated BNP. Along with his exam which showed b/ l pitting edema, productive cough, and abdominal distension, patient seems to be fluid overloaded. Troponin was elevated at .05 but this has been the patient' s baseline. EKG didn't reveal any acute ischemic changes. His chest pain and SOB seems more likely to be due to a possible CHF exacerbation and unlikely to be due to ACS. We were able to contact the paediatric thoracic physician Dr. Maravilla who recommended patient to undergo dialysis tomorrow. Patient was unable to produce urine yet. Hospitalist Dr. Stephens recommended patient to receive 80 mg lasix and agreed to admit the patient for further evaluation and management. Vital Signs Temperature 97 F L 01/05/18 17:54 Pulse Rate 92 01/05/18 17:54 Respiratory Rate 18 01/05/18 17:54 Blood Pressure 164/119 01/05/18 17:54 O2 Sat by Pulse Oximetry 99 01/05/18 17:54 Temperature 97 F L 01/05/18 17:54 Pulse Rate 96 01/05/18 20:33 Respiratory Rate 16 01/05/18 20:33 Blood Pressure 145/109 01/05/18 20:33 O2 Sat by Pulse Oximetry 94 01/05/18 20:33 Oxygen Delivery Oxygen Delivery Room Air Chest Pain - Lab Data Result diagrams: 01/05/18 18:10 01/05/18 18:10 Lab Results 01/05/18 01/05/18 01/05/18 Range/Units 18:10 18:10 18:10 WBC 7.2 (4.3-11.1) K/mcL RBC 4.01 L (4.19-5.50) M/mcL Hgb 11.9 L (12.9-16.9) g/dL Hct 36.9 L (37.5-50.1) % MCV 92.0 (83.0-100.0) fL MCH 29.7 (28.0-33.3) pg MCHC 32.2 (31.6-35.5) g/dL RDW 15.3 H (11.5-14.5) % Plt Count 173 (140-400) K/mcL MPV 10.0 (9.4-12.4) fL Immature Gran % 0.3 (0-4) % Seg Neutrophils % 74.5 % Lymphocytes % 13.0 % Monocytes % 7.4 % Eosinophils % 4.2 % Basophils % 0.6 % Neutrophils # 5.4 (1.6-8.9) K/mcL Lymphocytes # 0.9 (0.6-4.6) K/mcL Monocytes # 0.5 (0.0-1.3) K/mcL Eosinophils # 0.3 (0.0-0.6) K/mcL Basophils # 0.0 (0.0-0.2) K/mcL PT 13.5 H (9.4-12.1) Seconds INR 1.2 APTT 36.8 H (26.0-36.0) Seconds Sodium (136-145) mEq/L Potassium (3.5-5.1) mEq/L Chloride (98-107) mEq/L Carbon Dioxide (23-29) mEq/L BUN (6-20) mg/dL Creatinine (0.70-1.30) mg/dL Est GFR ( Amer) (> 60) Est GFR (Non-Af Amer) (> 60) BUN/Creatinine Ratio (6-26) Glucose (70-105) mg/dL Calculated Osmolality (280-300) Calcium (8.6-10.3) mg/dL Troponin I (< 0.04) ng/mL B-Natriuretic Peptide 1640 H (Less than 100) pg/mL 01/05/18 Range/Units 18:10 WBC (4.3-11.1) K/mcL RBC (4.19-5.50) M/mcL Hgb (12.9-16.9) g/dL Hct (37.5-50.1) % MCV (83.0-100.0) fL MCH (28.0-33.3) pg MCHC (31.6-35.5) g/dL RDW (11.5-14.5) % Plt Count (140-400) K/mcL MPV (9.4-12.4) fL Immature Gran % (0-4) % Seg Neutrophils % % Lymphocytes % % Monocytes % % Eosinophils % % Basophils % % Neutrophils # (1.6-8.9) K/mcL Lymphocytes # (0.6-4.6) K/mcL Monocytes # (0.0-1.3) K/mcL Eosinophils # (0.0-0.6) K/mcL Basophils # (0.0-0.2) K/mcL PT (9.4-12.1) Seconds INR APTT (26.0-36.0) Seconds Sodium 138 (136-145) mEq/L Potassium 4.9 (3.5-5.1) mEq/L Chloride 98 (98-107) mEq/L Carbon Dioxide 29 (23-29) mEq/L BUN 40 H (6-20) mg/dL Creatinine 8.95 H (0.70-1.30) mg/dL Est GFR ( Amer) 8 L (> 60) Est GFR (Non-Af Amer) 7 L (> 60) BUN/Creatinine Ratio 4 L (6-26) Glucose 92 (70-105) mg/dL Calculated Osmolality 295 (280-300) Calcium 9.7 (8.6-10.3) mg/dL Troponin I 0.05 H* (< 0.04) ng/mL B-Natriuretic Peptide (Less than 100) pg/mL - EKG Data EKG shows normal: sinus rhythm, axis, intervals, QRS complexes Rate: normal Rhythm: NSR [place]/QRS: normal Heart Score - Score History: Slightly Suspicious EKG: Normal Age: Less than 45 Risk Factors: Equal/Greater than 3 risk factor or history of atherosclerotic disease Troponin: 1-3x normal limit HEART Score Total: 3
[2018-01-05 18:40] LABS: INR 1.2; Prothrombin Time 13.5 Seconds (9.4-12.1)
[2018-01-05 18:43] LABS: Activated Partial Thrombo Time 36.8 Seconds (26.0-36.0)
[2018-01-05 18:50] LABS: Calcium 9.7 mg/dL (8.6-10.3); Potassium 4.9 mEq/L (3.5-5.1)
[2018-01-05 18:54] LABS: Troponin I 0.05 ng/mL (< 0.04)
--- NOTE | 2018-01-05 20:10 | Emergency Department Note ---
Disposition Clinical Impression: ESRD (end stage renal disease) CHF (congestive heart failure) Qualifiers: Heart failure type: unspecified Heart failure chronicity: acute on chronic Qualified Code(s): I50.9 - Heart failure, unspecified Disposition: Admitted As Inpatient Condition: Fair Referrals: NONE,PCP [Primary Care Provider] - Forms: ED Satisfaction Letter Chest Pain HPI - General Chief Complaint: ED Chest Pain Stated Complaint: CP Time Seen by Provider: 01/05/18 17:53 Source: patient Limitations: no limitations Vital Signs Reviewed: Yes Nursing Notes Reviewed: Yes - History of Present Illness Severity scale (1-10): 0 - Related Data Home Medications Medication Instructions Recorded Confirmed Aspirin [Lo-Dose Aspirin EC] 81 mg PO DAILY 04/25/17 12/08/17 Metoprolol XL (24 HR) Succ [Toprol 50 mg PO DAILY 04/25/17 12/08/17 Xl] Sevelamer [Renvela] 1,600 mg PO TIDWM 04/25/17 12/08/17 Cinacalcet HCl [Sensipar] 90 mg PO DAILY 12/08/17 12/08/17 Previous Rx's Medication Instructions Recorded Lisinopril [Zestril] 10 mg PO DAILY #30 tablet 09/25/17 Sulfamethoxazole/Trimeth DS 1 each PO BID #14 tablet 12/08/17 [Bactrim DS] Allergies Allergy/AdvReac Type Severity Reaction Status Date / Time No Known Allergies Allergy Verified 12/08/17 09:38 Constitutional: Reports: weight change. Denies: fever, chills, weakness Cardiovascular: Reports: chest pain, dyspnea on exertion, edema. Denies: orthopnea Respiratory: Reports: cough, dyspnea Chest Pain PMH - Past Medical History Medical history: Reports: cardiomyopathy, CHF, dialysis, hypertension, liver disease, renal disease, other Surgical history: Reports: orthopedic, other, vascular surgery, other Psychiatric history: Reports: anxiety, depression - Social History Smoking Status: Current every day smoker Alcohol use: Reports: none Drug use: Reports: none Physical Exam - General Limitations: no limitations General appearance: alert Course Vital Signs Temperature 97 F L 01/05/18 17:54 Pulse Rate 92 01/05/18 17:54 Respiratory Rate 18 01/05/18 17:54 Blood Pressure 164/119 01/05/18 17:54 O2 Sat by Pulse Oximetry 99 01/05/18 17:54 Temperature 97 F L 01/05/18 17:54 Pulse Rate 96 01/05/18 20:33 Respiratory Rate 16 01/05/18 20:33 Blood Pressure 145/109 01/05/18 20:33 O2 Sat by Pulse Oximetry 94 01/05/18 20:33 Oxygen Delivery Oxygen Delivery Room Air Chest Pain - Lab Data Result diagrams: 01/05/18 18:10 01/05/18 18:10 Lab Results 01/05/18 01/05/18 01/05/18 Range/Units 18:10 18:10 18:10 WBC 7.2 (4.3-11.1) K/mcL RBC 4.01 L (4.19-5.50) M/mcL Hgb 11.9 L (12.9-16.9) g/dL Hct 36.9 L (37.5-50.1) % MCV 92.0 (83.0-100.0) fL MCH 29.7 (28.0-33.3) pg MCHC 32.2 (31.6-35.5) g/dL RDW 15.3 H (11.5-14.5) % Plt Count 173 (140-400) K/mcL MPV 10.0 (9.4-12.4) fL Immature Gran % 0.3 (0-4) % Seg Neutrophils % 74.5 % Lymphocytes % 13.0 % Monocytes % 7.4 % Eosinophils % 4.2 % Basophils % 0.6 % Neutrophils # 5.4 (1.6-8.9) K/mcL Lymphocytes # 0.9 (0.6-4.6) K/mcL Monocytes # 0.5 (0.0-1.3) K/mcL Eosinophils # 0.3 (0.0-0.6) K/mcL Basophils # 0.0 (0.0-0.2) K/mcL PT 13.5 H (9.4-12.1) Seconds INR 1.2 APTT 36.8 H (26.0-36.0) Seconds Sodium (136-145) mEq/L Potassium (3.5-5.1) mEq/L Chloride (98-107) mEq/L Carbon Dioxide (23-29) mEq/L BUN (6-20) mg/dL Creatinine (0.70-1.30) mg/dL Est GFR ( Amer) (> 60) Est GFR (Non-Af Amer) (> 60) BUN/Creatinine Ratio (6-26) Glucose (70-105) mg/dL Calculated Osmolality (280-300) Calcium (8.6-10.3) mg/dL Troponin I (< 0.04) ng/mL B-Natriuretic Peptide 1640 H (Less than 100) pg/mL 01/05/18 Range/Units 18:10 WBC (4.3-11.1) K/mcL RBC (4.19-5.50) M/mcL Hgb (12.9-16.9) g/dL Hct (37.5-50.1) % MCV (83.0-100.0) fL MCH (28.0-33.3) pg MCHC (31.6-35.5) g/dL RDW (11.5-14.5) % Plt Count (140-400) K/mcL MPV (9.4-12.4) fL Immature Gran % (0-4) % Seg Neutrophils % % Lymphocytes % % Monocytes % % Eosinophils % % Basophils % % Neutrophils # (1.6-8.9) K/mcL Lymphocytes # (0.6-4.6) K/mcL Monocytes # (0.0-1.3) K/mcL Eosinophils # (0.0-0.6) K/mcL Basophils # (0.0-0.2) K/mcL PT (9.4-12.1) Seconds INR APTT (26.0-36.0) Seconds Sodium 138 (136-145) mEq/L Potassium 4.9 (3.5-5.1) mEq/L Chloride 98 (98-107) mEq/L Carbon Dioxide 29 (23-29) mEq/L BUN 40 H (6-20) mg/dL Creatinine 8.95 H (0.70-1.30) mg/dL Est GFR ( Amer) 8 L (> 60) Est GFR (Non-Af Amer) 7 L (> 60) BUN/Creatinine Ratio 4 L (6-26) Glucose 92 (70-105) mg/dL Calculated Osmolality 295 (280-300) Calcium 9.7 (8.6-10.3) mg/dL Troponin I 0.05 H* (< 0.04) ng/mL B-Natriuretic Peptide (Less than 100) pg/mL Attestation Statement - Attestation Attestation: I, Jermaine Yates, examined this patient and my medical decision-making was reviewed with the SENIOR INTERNET SALES CONSULTANT/PA/Advanced Practice Nurse/Resident Physician. I agree with the documented findings, disposition and treatment plan as described except to the extent set forth below. 32-year-old male who presents emergency Department with concerns of fluid overload. Patient states he was unable to go to his scheduled dialysis today due to a problem with the water supply at the dialysis center. Patient states he has a history of chronic kidney disease and frequently becomes fluid overloaded and in respiratory distress. Patient has mild shortness of breath with exertion at this time. He also has a history of a large amount of ascites and requires intermittent abdominal paracentesis. Patient denies abdominal pain today. Initially he reported chest pain however he states that this often occurs when he is fluid overloaded. Patient denies chest pain during my evaluation emergency department. I spoke with Dr. Maravilla who recommended admission to the hospital for observation overnight on monitor until he can have dialysis in the morning.
[2018-01-05] MEDS ORDERED: Furosemide 40 MG/4 ML VIAL IVP ONE ×2 (20:44→21:17)
[2018-01-05] MEDS ORDERED: Acetaminophen 325 MG TABLET PO ONE (23:45)
[2018-01-05] MEDS ORDERED: OXYCODONE Oral CONC 10 MG/0.5 ML ORAL.SYG SL ONE (23:47)
[2018-01-06] MEDS ORDERED: Naloxone 0.4 MG/ML INJ IVP PRN (00:13)
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
[2018-01-06 01:07] LABS: Basophils # 0.1 K/mcL (0.0-0.2); Basophils % 0.7 %; Eosinophils # 0.3 K/mcL (0.0-0.6); Eosinophils % 4.1 %; Hematocrit 36.6 % (37.5-50.1); Hemoglobin 11.7 g/dL (12.9-16.9); Immature Granulocytes % 0.3 % (0-4); Lymphocytes # 1.3 K/mcL (0.6-4.6); Lymphocytes % 17.8 %; Mean Corpuscular Hemoglobin 29.6 pg (28.0-33.3); Mean Corpuscular Volume 92.7 fL (83.0-100.0); Monocytes # 0.5 K/mcL (0.0-1.3); Monocytes % 7.4 %; Neutrophils # 4.9 K/mcL (1.6-8.9); Platelet Count 173 K/mcL (140-400); Red Blood Count 3.95 M/mcL (4.19-5.50); Red Cell Distribution Width 15.2 % (11.5-14.5); Segmented Neutrophils % 69.7 %
[2018-01-06] MEDS ORDERED: Ipratropium/Albuterol Neb 3 ML IH PRN (01:21)
[2018-01-06 01:23] LABS: Albumin 3.1 g/dL (3.5-5.7); Albumin/Globulin Ratio 1.1 (1.1-2.2); Bilirubin,Direct 0.2 mg/dL (0.0-0.2); Bilirubin,Indirect 0.3 mg/dL (0.0-1.2); Bilirubin,Total 0.5 mg/dL (0.3-1.0); Globulin 2.9 g/dL (2.4-3.5)
[2018-01-06 01:24] LABS: Calcium 9.6 mg/dL (8.6-10.3); Phosphorous 8.4 mg/dL (2.7-4.5); Potassium 4.9 mEq/L (3.5-5.1)
[2018-01-06] MEDS: Ondansetron 4 MG/2 ML VIAL IVP PRN (05:01)
[2018-01-06] MEDS: *HR* Heparin 5,000 UNIT/ML VIAL SQ SCH ×3 (05:04→16:49)
[2018-01-06] MEDS ORDERED: 0.9 % Sodium Chloride 250 ML IVC PRN (07:46)
[2018-01-06] MEDS ORDERED: 0.9 % Sodium Chloride 2,000 ML ONE (08:16)
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
[2018-01-06] MEDS: Metoprolol XL (24 HR) Succ 50 MG TAB.ER.24H PO SCH (14:18)
[2018-01-06] MEDS: Aspirin Enteric Coated 81 MG Tablet PO SCH (14:18)
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
[2018-01-06] MEDS ORDERED: traMADol 50 MG TABLET PO PRN ×2 (20:33→20:42)
[2018-01-07] MEDS: *HR* OxyCODONE Immed Rel 5 MG TABLET PO PRN ×3 (00:35→20:37)
[2018-01-07 04:14] LABS: Basophils # 0.1 K/mcL (0.0-0.2); Eosinophils # 0.3 K/mcL (0.0-0.6); Eosinophils % 4.3 %; Hemoglobin 11.9 g/dL (12.9-16.9); Immature Granulocytes % 0.4 % (0-4); Lymphocytes # 1.2 K/mcL (0.6-4.6); Lymphocytes % 18.4 %; Mean Corpuscular HGB Conc 31.3 g/dL (31.6-35.5); Mean Corpuscular Hemoglobin 29.3 pg (28.0-33.3); Mean Corpuscular Volume 93.6 fL (83.0-100.0); Mean Platelet Volume 10.2 fL (9.4-12.4); Monocytes # 0.6 K/mcL (0.0-1.3); Neutrophils # 4.5 K/mcL (1.6-8.9); Platelet Count 185 K/mcL (140-400); Red Blood Count 4.06 M/mcL (4.19-5.50); Red Cell Distribution Width 15.4 % (11.5-14.5); Segmented Neutrophils % 66.9 %
[2018-01-07 04:30] LABS: Calcium 9.7 mg/dL (8.6-10.3); Potassium 4.7 mEq/L (3.5-5.1)
[2018-01-07] MEDS: *HR* Heparin 5,000 UNIT/ML VIAL SQ SCH ×2 (04:31→15:49)
[2018-01-07] MEDS ORDERED: 0.9 % Sodium Chloride 1,000 ML ONE (07:25)
[2018-01-07] MEDS ORDERED: 0.9 % Sodium Chloride 250 ML IVC PRN (08:03)
--- NOTE | 2018-01-07 09:57 | Nephrology Progress Note ---
Date of Encounter: 01/07/18 Time of Encounter: 09:55 - Assessment and Plan (1) ESRD (end stage renal disease) on dialysis Current Visit: Yes Status: Chronic Continue current HD regimen, he is usually MWF at [facility]. Removing 6 kgs today. Avoid nephrotoxins. (2) CHF (congestive heart failure) Current Visit: Yes Status: Chronic Per primary team. Qualifiers: Heart failure type: unspecified Heart failure chronicity: acute on chronic Qualified Code(s): I50.9 - Heart failure, unspecified (3) Pleural effusion on right Current Visit: No Status: Acute Chronic, will get drained today with IR. (4) Wheezing Current Visit: Yes Status: Acute Denies shortness of breath today, wheezing noted to left upper lobe. Albuterol inhaler already ordered by another provider. Patient is smoker, was 1 PPD has recently cut back to 4 cigarettes/day. Subjective Principal diagnosis: ESRD with HD Interval history: Pt seen and examined in HD. Denies any nausea/vomiting/cramping. No signs of distress. Objective - Vital Signs Vital signs: Vital Signs Temp Pulse Resp BP Pulse Ox 01/07/18 06:56 98.3 F 89 16 127/54 92 01/07/18 03:56 97.9 F 83 19 130/86 95 01/07/18 00:15 97.9 F 84 16 126/87 97 01/06/18 22:56 98.2 F 94 20 160/101 92 01/06/18 20:00 96 01/06/18 19:25 97.8 F 90 16 154/98 96 01/06/18 16:13 98.1 F 91 19 165/108 93 01/06/18 13:22 98.1 F 98 18 163/108 90 01/06/18 12:54 98.3 F 22 140/82 01/06/18 12:40 146/92 01/06/18 12:30 140/95 01/06/18 12:15 138/83 01/06/18 12:00 145/92 01/06/18 11:45 129/70 01/06/18 11:30 138/95 01/06/18 11:15 155/97 01/06/18 11:00 153/103 01/06/18 10:45 126/85 01/06/18 10:30 132/90 01/06/18 10:15 152/102 01/06/18 10:00 139/95 Intake and Output 01/06/18 01/07/18 01/07/18 23:59 07:59 15:59 Intake Total 720 / 720 Balance 720 / 720 Intake: Oral 720 / 720 Other: Meal Dinner Percent of Meal Consumed 100% Weight 161.8 kg Patient Weight 01/07/18 23:59 Weight 161.8 kg - General Appearance General appearance: Present: obese EENT: Present: ATNC Neck: Present: supple Respiratory: Present: wheezing (left upper lobe, otherwise clear throughout.) Cardiology: Present: no murmurs, edema (+2 pitting edema noted bilat to entire lower extremities and bilat hips.), normal S1, normal S2 Dialysis Vascular Access: Venous Catheter thrill: Yes bruit: Yes Gastrointestinal: Present: no tenderness, no guarding, obese Integumentary: Present: warm and dry Neurologic: Present: no asterixis, alert and oriented x3 Psychiatric: Present: mood/affect appropriate, cooperative - Lab 01/07/18 03:36 01/07/18 03:36 Most recent lab results Calcium 9.7 mg/dL (8.6-10.3) 01/07/18 03:36 Phosphorus 8.4 mg/dL (2.7-4.5) H 01/06/18 00:34 Magnesium 2.0 mg/dL (1.6-2.6) 01/06/18 00:34 Consult Discharge Plan - Plan Referrals: NONE,PCP [Primary Care Provider] -
--- NOTE | 2018-01-07 14:31 | IR Procedure Note ---
Date of procedure: 01/07/18 Consent Obtained: Written consent Timeout: Correct patient and procedure verified, Correct site verified, Time out performed, Skin prep completed Indications: ascites Procedure Performed: paracentesis Was there an business assistant present: No Site/Technique: left abdomen Results/Findings: large ascites Estimated blood loss (cc): 0 Complications: None; Tolerated procedure well Post Procedure Treatment Plan: monitor Specimen: none
[2018-01-07] MEDS: Aspirin Enteric Coated 81 MG Tablet PO SCH (15:08)
[2018-01-07] MEDS: Metoprolol XL (24 HR) Succ 50 MG TAB.ER.24H PO SCH (15:08)
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
[2018-01-07] MEDS ORDERED: Chloraseptic Spray 177 ML BOTTLE MM PRN (21:03)
[2018-01-08] MEDS: *HR* OxyCODONE Immed Rel 5 MG TABLET PO PRN ×2 (04:39→12:57)
[2018-01-08] MEDS: *HR* Heparin 5,000 UNIT/ML VIAL SQ SCH (05:41)
[2018-01-08 06:07] LABS: Calcium 9.6 mg/dL (8.6-10.3); Potassium 5.1 mEq/L (3.5-5.1)
[2018-01-08] MEDS ORDERED: 0.9 % Sodium Chloride 250 ML IVC PRN (07:27)
[2018-01-08] MEDS ORDERED: 0.9 % Sodium Chloride 1,000 ML PRIME SCH (07:30)
[2018-01-08] MEDS ORDERED: 0.9 % Sodium Chloride 1,000 ML ONE (07:32)
[2018-01-08] MEDS: Aspirin Enteric Coated 81 MG Tablet PO SCH (07:59)
[2018-01-08] MEDS: Metoprolol XL (24 HR) Succ 50 MG TAB.ER.24H PO SCH (07:59)
--- NOTE | 2018-01-08 09:22 | Nephrology Progress Note ---
Date of Encounter: 01/08/18 Time of Encounter: 09:20 - Assessment and Plan (1) ESRD (end stage renal disease) on dialysis Current Visit: Yes Status: Chronic UF ordered for today, he is usually MWF at [facility]. 4.5 ordered to challenge dry weight. Avoid nephrotoxins. (2) CHF (congestive heart failure) Current Visit: Yes Status: Chronic Per primary team. Qualifiers: Heart failure type: unspecified Heart failure chronicity: acute on chronic Qualified Code(s): I50.9 - Heart failure, unspecified (3) Pleural effusion on right Current Visit: No Status: Acute Chronic, did have Paracentesis yesterday, removed 13.5 Liters. (4) Wheezing Current Visit: Yes Status: Acute Denies shortness of breath today, wheezing noted to left upper lobe. Albuterol inhaler already ordered by another provider. Patient is smoker, was 1 PPD has recently cut back to 4 cigarettes/day. Encouraged nurse to have RTS given Albuterol inhaler. Subjective Principal diagnosis: ESRD with HD Interval history: Pt seen and examined in room. Denies any nausea/vomiting/cramping. No signs of distress. States he is ready to go home. I have reviewed the following for this patient, progress notes, labs, medications, imaging, and V/S. Objective - Vital Signs Vital signs: Vital Signs Temp Pulse Resp BP Pulse Ox 01/08/18 07:20 98.1 F 95 18 131/86 95 01/08/18 03:38 98.2 F 84 17 134/80 95 01/07/18 23:27 98.5 F 82 17 133/85 97 01/07/18 19:18 98.8 F 85 16 119/71 97 01/07/18 15:01 98.5 F 95 18 134/84 94 01/07/18 13:45 97.8 F 15 144/83 01/07/18 13:35 158/92 01/07/18 13:20 149/83 01/07/18 13:05 141/80 01/07/18 12:50 145/82 01/07/18 12:35 144/83 01/07/18 12:20 143/83 01/07/18 12:05 139/79 01/07/18 11:50 133/84 01/07/18 11:35 141/84 01/07/18 11:20 129/67 01/07/18 11:05 124/64 01/07/18 10:50 132/74 01/07/18 10:35 134/78 01/07/18 10:20 132/75 01/07/18 10:05 131/74 01/07/18 09:50 152/90 01/07/18 09:35 154/87 Intake and Output 01/07/18 01/08/18 01/08/18 23:59 07:59 15:59 Intake Total 240 / 240 240 / 240 Balance 240 / 240 240 / 240 Intake: Oral 240 / 240 240 / 240 Other: Meal Dinner Percent of Meal Consumed 100% Weight 143.244 kg Patient Weight 01/08/18 23:59 Weight 143.244 kg - General Appearance General appearance: Present: well-developed, obese EENT: Present: ATNC, hearing intact, vision intact Neck: Present: supple Cardiology: Present: no murmurs, normal S1, normal S2 Dialysis Vascular Access: Arteriovenous Fistula (Left upper arm.) thrill: Yes bruit: Yes Gastrointestinal: Present: normoactive bowel sounds, no tenderness, no guarding Integumentary: Present: no rash, warm and dry Neurologic: Present: no asterixis, alert and oriented x3 - Lab 01/07/18 03:36 01/08/18 05:10 Most recent lab results Calcium 9.6 mg/dL (8.6-10.3) 01/08/18 05:10 Phosphorus 8.4 mg/dL (2.7-4.5) H 01/06/18 00:34 Magnesium 2.0 mg/dL (1.6-2.6) 01/06/18 00:34 Consult Discharge Plan - Plan Referrals: NONE,PCP [Primary Care Provider] -
[2018-01-08] MEDS: Ondansetron 4 MG/2 ML VIAL IVP PRN (09:32)
--- NOTE | 2018-01-08 16:39 | Discharge Summary ---
- NOTES TO OUTPATIENT PROVIDER Notes to Outpatient Provider: Pt admitted for fluid overload. 2 rounds of dialysis/UF here, in addition, pt had paracentesis with 13.5L removed. Orders not resulted at time of discharge: Pending orders 01/06/18 00:19 Albumin,Peritoneal Fluid [BF] Routine Cell Count w Diff, Body Fluid [BF] Routine Culture,Body Fluid [RM] Routine 01/06/18 00:21 Cytology Other [PTH] Routine Date of Encounter: 01/08/18 Time of Encounter: 09:45 - Discharge Diagnosis (1) Ascites Priority: Primary Status: Acute Assessment and Plan: Patient with history of noncompliance with paracentesis. IR paracentesis 01/07, 13.5 liters removed with paracentesis and 6 liters from dialysis. Continue to monitor pt vitals signs and condition. Vitals stable and pt states that he is tired and nauseated, which is normal after the procedures. Qualifiers: Ascites type: other type Qualified Code(s): R18.8 - Other ascites (2) CHF (congestive heart failure) Priority: Secondary Status: Chronic Assessment and Plan: Pt in obvious fluid overload that has improved with dialysis and paracentesis. Continue fluid restriciton, strict I and O, daily weight Edema and fluid overload has improved. Overall fluid deficit 11.0 liters. Unclear if weights are accurate, but appears to have 20 kg loss. Qualifiers: Heart failure type: unspecified Heart failure chronicity: acute on chronic Qualified Code(s): I50.9 - Heart failure, unspecified (3) Cirrhosis Priority: Secondary Status: Chronic Assessment and Plan: Chronic. Abd rounded, fluid filled, improved after paracentesis yesterday. Continue to monitor. Qualifiers: Hepatic cirrhosis type: unspecified hepatic cirrhosis Ascites presence: with ascites Qualified Code(s): K74.60 - Unspecified cirrhosis of liver (4) End stage renal disease Priority: Secondary Status: Chronic Assessment and Plan: Chronic. serum creatinine 7.06, GFR 9, appears to be at baseline. Improved after dialysis x 2 and UF. Attempt to avoid nephrotoxins Continue fluid restriction Nephrology following, I appreciate his recommendations and assistance with this pt. They have signed off and from their standpoint, pt may be discharged. (5) Fluid overload Priority: Secondary Status: Acute Assessment and Plan: Plan as above. Qualifiers: Hypervolemia type: other Qualified Code(s): E87.79 - Other fluid overload (6) HTN (hypertension), benign Priority: Secondary Status: Chronic Assessment and Plan: Pt with well controlled HTN, normal for pt. continue home medications. (7) Noncompliance with medication regimen Priority: Secondary Status: Chronic Assessment and Plan: Chronic. Pt admits to non-adherence with medications, HD, and paracentesis. Continue to encourage him to attend HD and follow fluid restriction and medication regimen after discharge. Hospital course: Mr. Snyder is a 32 year old male with pmh of cirrhosis, ESRD, HTN, DM, COPD, combined CHF. Pt presented with fluid overload after missing dialysis and drinking too much Mt Dew prior to admission. He has been treated with UF/HD and paracentesis. He has improved, however, this a.m. he states that he was not feeling well, as he always does after dialysis and paracentesis. He reported nausea. Currently pt is at UF and if he is stable and feeling well when he returns, he may be discharged. He should be encouraged to attend all dialysis appointments as well as scheduled appointments for paracentesis. Pt is stable and appropriate for discharge when he is ready. Discharge discussed with: patient, nurse - Time Spent with Patient Total time spent providing and/or coordinating discharge services: Less than 30 minutes - Discharge Medications Home Medications: Aspirin [Lo-Dose Aspirin EC] 81 mg PO DAILY 04/25/17 [History] Metoprolol XL (24 HR) Succ [Toprol Xl] 50 mg PO DAILY 04/25/17 [History] Sevelamer [Renvela] 1,600 mg PO TIDWM 04/25/17 [History] Cinacalcet HCl [Sensipar] 90 mg PO DAILY 12/08/17 [History] Allergies/Adverse Reactions: 3 Allergy/AdvReac Type Severity Reaction Status Date / Time No Known Allergies Allergy Verified 12/08/17 09:38 Date of admission: 01/05/18 21:25 Primary care physician: PCP NONE Consults: 01/06/18 00:17 Consult to Interventional Radiology [CONS] Routine Consulting Provider: Radiology Interventional Cols Reason for Consult: paracentesis Call Completed: No Consult to Nephrology [CONS] Routine Consulting Provider: Kidney Amelia/STEPH/JEANETTE/NICOLASA Reason for Consult: missed hemodialysis Call Completed: No 01/06/18 08:00 Consult to Dialysis [CONS] ONCE 01/07/18 08:15 Consult to Dialysis [CONS] ONCE 01/08/18 07:30 Consult to Dialysis [CONS] ONCE Discharging clinician: Ellen García Anticipated date of discharge: 01/08/18 - Constitutional Vitals: Temp Pulse Resp BP Pulse Ox 97.3 F L 95 18 107/54 95 01/08/18 13:55 01/08/18 07:20 01/08/18 13:55 01/08/18 15:25 01/08/18 07:20 General appearance: Present: cooperative, A&O X 3, pleasant, no acute distress, obese, answers questions appropriately - Head Head exam: Present: atraumatic, normal inspection, normocephalic - Eye Eye exam: Present: normal appearance, conjuntiva pink, sclera anicteric - Neck Neck exam general surgery: Present: supple, trachea midline. Absent: lymphadenopathy, tenderness - Respiratory Respiratory exam: Present: decreased breath sounds, CTAB. Absent: accessory muscle use, rales, rhonchi, wheezes, tachypnea - Cardiovascular Cardiovascular exam: Present: RRR, +S1, +S2. Absent: diastolic murmur, gallop, rubs, systolic murmur - GI/Abdominal GI/Abdominal exam: Present: distended, normal bowel sounds, soft. Absent: rigid , tenderness - Expanded GI/Abdominal Exam GI/Abdominal exam expanded: Present: ascites - Extremities Exam Extremities exam: Present: pedal edema, warm, radial pulses palpable and symmetrical. Absent: calf tenderness, cyanotic, normal inspection - Neurological Exam Neurological exam: Present: alert, oriented X3, no focal deficits. Absent: facial droop, speech deficit - Skin Skin exam: Present: dry, intact, normal color, warm. Absent: rash - Patient Status Disposition: Home, Self-Care Condition: Fair Functional capacity at discharge: wheelchair bound Overall status at discharge: patient is progressing back to baseline - Discharge Instructions Follow Up With: NONE,PCP [Primary Care Provider] - Additional Instructions: Please take your medications as directed. Please attend dialysis regularly, as well as scheduled paracentesis appointments. REturn to the ER as needed for any other problems or concerns, or if your symptoms return or worsen. Adhere to your fluid restriction and limit your amount of Mt Dew. Return to your normal diet and activities as tolerated. - Diet and Activity Activity: increase activity as tolerated Diet: advance to your usual diet, other (Adhere to your fluid and sodium restriction. )
[2018-01-08 18:04] VITALS: BP 121/56
--- NOTE | 2018-01-09 16:54 | Electrocardiograph Report ---
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
== END 2018-01-08 19:36 | disposition home or self-care (01) | DRG 640 ==
LOC: 3BNU 17:52 → EMEROO 17:52 → 3BNU 21:48
PROVIDERS: ADMIT Internal Medicine; ATTEND Internal Medicine

== ENCOUNTER 2018-02-11 03:56 | Inpatient (IN) ==
--- NOTE | 2018-02-11 05:12 | Emergency Department Note ---
Disposition Clinical Impression: Pain and swelling of left lower extremity Disposition: Admitted As Inpatient Condition: Good Referrals: NONE,PCP [Primary Care Provider] - Forms: ED Satisfaction Letter Time of Disposition: 06:19 General Adult HPI - General Chief complaint: ED Extremity Problem,Nontraumatic Stated complaint: left leg pain Time Seen by Provider: 02/11/18 04:07 Source: patient Limitations: no limitations Nursing Notes Reviewed: Yes Vital Signs Reviewed: Yes - History of Present Illness Pt Subjective Complaint: Left Lower extremity pain/swelling/redness Onset (ago): day(s) (3) Location: left, lower extremity Radiation: non-radiation Pain Scale: 9 Quality: aching Consistency: Worsening Improves with: nothing Worsens with: nothing Associated symptoms: Reports: fever/chills. Denies: nausea/vomiting - Related Data Home Medications Medication Instructions Recorded Confirmed Aspirin [Lo-Dose Aspirin EC] 81 mg PO DAILY 04/25/17 01/05/18 Metoprolol XL (24 HR) Succ [Toprol 50 mg PO DAILY 04/25/17 01/05/18 Xl] Sevelamer [Renvela] 1,600 mg PO TIDWM 04/25/17 01/05/18 Cinacalcet HCl [Sensipar] 90 mg PO DAILY 12/08/17 01/05/18 Allergies Allergy/AdvReac Type Severity Reaction Status Date / Time No Known Allergies Allergy Verified 12/08/17 09:38 All systems ED: reviewed and negative except as stated. Review of Systems: As Per HPI Constitutional: Denies: fever, chills, weakness Eyes: Denies: eye discharge ENT ED: Denies: throat pain Cardiovascular: Denies: chest pain, palpitations Respiratory: Denies: cough, dyspnea, wheezes Gastrointestinal: Denies: abdominal pain, nausea, vomiting Musculoskeletal: Reports: as per HPI Neurological: Denies: weakness Endocrine: Denies: fatigue Hematological/Lymphatic: Denies: easy bleeding Allergic/Immunologic: Denies: facial swelling Past Medical History - Past Medical History Medical history: Reports: cardiomyopathy, CHF, dialysis, hyperlipidemia, hypertension, liver disease, renal disease, other Surgical history: Reports: orthopedic, other, vascular surgery, other Psychiatric history: Reports: anxiety, depression - Social History Smoking Status: Current every day smoker Smokeless Tobacco Status: No Alcohol use: Reports: none Drug use: Reports: none Physical Exam - General Limitations: no limitations General appearance: alert, in no apparent distress - Head Head exam: normocephalic - Eye Eye exam: Present: EOMI - ENT ENT exam: mucous membranes moist - Neck Neck exam: Present: full ROM - Chest Chest inspection: Present: symmetric chest wall rise - Respiratory Respiratory exam: Present: normal lung sounds bilaterally. Absent: respiratory distress - Cardiovascular Cardiovascular exam: Present: regular rate, normal rhythm - Abdominal Exam Abdominal exam: Present: soft, distention - Expanded Lower Extremity Exam Knee exam: Present: normal inspection, full ROM. Absent: tenderness Lower leg exam: Present: tenderness (LLE), swelling (BLE), abrasion (LLE), erythema (LLE) Ankle exam: Present: swelling (BLE). Absent: tenderness Foot/toe exam: Present: full ROM, swelling (BLE). Absent: tenderness Neurovascular/Tendon exam: Absent: pulse deficit Gait: not tested/not observed - Back Exam Back exam: Present: full ROM - Neurological Exam Neurological exam: Present: alert - Psychiatric Psychiatric exam: Present: normal affect, normal mood - Skin Skin exam: Present: warm, dry, intact, normal color. Absent: rash, cyanosis, diaphoresis Course Course Narrative: Patient is a 32-year-old male that arrives via squad with complaint of left lower extremity swelling, and redness. He mentions had missed his last dialysis which was approximately 2 days ago because of " issues". He does mention that he picks and scratches at his leg, which had caused an abrasion. He does mention his legs have been more swollen lately, however they were more swollen before the redness which had developed more recently. Patient has known history of chronic kidney disease, on hemodialysis. I do believe he has a history of noncompliance. He has presented to this department previously with concerns of shortness of breath, abdominal distention, fluid overload. Today he mentions his concern for left lower extremity, he denies any chest pain, shortness of breath, orthopnea, exertional shortness of breath or any worsening of his abdominal pain. Patient mentions he has dialysis Friday. He does have a history of ascites, also mentions he gets a therapeutic paracentesis every 2 weeks, and is about due for one as well. Patient's vitals are within normal limits. On examination, he does have a slight abrasion over his anterior left tibia, and some mild erythema that appears to be isolated to his anterior left lower extremity. His left lower extremity appears to be more tender than his right. He does have bilateral lower extremity edema, worse on left Workup initiated.He is requesting analgesics. - Reevaluation(s) Reevaluation #1: Due to shift change, care of this patient will be transferred over to day shift provider Pollo Bradshaw CNP, and likely daytime attending physicians as well. Patient discussed with Pollo. Patient is awaiting lab work, for evaluation of his CHF, end-stage kidney disease, and possible infectious process. His vitals remain stable. He has received pain medication. I anticipate patient will likely need to be admission, for dialysis/nephrology consult, DVT ultrasound, possible paracentesis, and antibiotics for possible cellulitis to his left lower extremity. However please see she day shift's documentation for further evaluation, and disposition of patient. Time: 06:18 Vital Signs Temperature 97.7 F 02/11/18 04:01 Pulse Rate 95 02/11/18 04:01 Respiratory Rate 22 02/11/18 04:01 Blood Pressure 160/121 02/11/18 04:01 O2 Sat by Pulse Oximetry 96 02/11/18 04:01 Temperature 97.7 F 02/11/18 04:01 Pulse Rate 94 02/11/18 04:36 Respiratory Rate 18 02/11/18 04:36 Blood Pressure 154/118 02/11/18 04:36 O2 Sat by Pulse Oximetry 95 02/11/18 04:36 Oxygen Delivery Oxygen Delivery Room Air Medical Decision Making - Lab Data Result diagrams: 02/11/18 05:39 Lab Results 02/11/18 02/11/18 02/11/18 Range/Units 05:39 05:39 05:39 WBC 7.5 (4.3-11.1) K/mcL RBC 4.16 L (4.19-5.50) M/mcL Hgb 12.3 L (12.9-16.9) g/dL Hct 37.9 (37.5-50.1) % MCV 91.1 (83.0-100.0) fL MCH 29.6 (28.0-33.3) pg MCHC 32.5 (31.6-35.5) g/dL RDW 14.7 H (11.5-14.5) % Plt Count 158 (140-400) K/mcL MPV 10.2 (9.4-12.4) fL Immature Gran % 0.3 (0-4) % Seg Neutrophils % 69.2 % Lymphocytes % 15.7 % Monocytes % 10.4 % Eosinophils % 3.5 % Basophils % 0.9 % Neutrophils # 5.2 (1.6-8.9) K/mcL Lymphocytes # 1.2 (0.6-4.6) K/mcL Monocytes # 0.8 (0.0-1.3) K/mcL Eosinophils # 0.3 (0.0-0.6) K/mcL Basophils # 0.1 (0.0-0.2) K/mcL PT 13.9 H (9.4-12.1) Seconds INR 1.3 Lactic Acid 0.7 (0.5-2.2) mmol/L B-Natriuretic Peptide (Less than 100) pg/mL 02/11/18 Range/Units 05:39 WBC (4.3-11.1) K/mcL RBC (4.19-5.50) M/mcL Hgb (12.9-16.9) g/dL Hct (37.5-50.1) % MCV (83.0-100.0) fL MCH (28.0-33.3) pg MCHC (31.6-35.5) g/dL RDW (11.5-14.5) % Plt Count (140-400) K/mcL MPV (9.4-12.4) fL Immature Gran % (0-4) % Seg Neutrophils % % Lymphocytes % % Monocytes % % Eosinophils % % Basophils % % Neutrophils # (1.6-8.9) K/mcL Lymphocytes # (0.6-4.6) K/mcL Monocytes # (0.0-1.3) K/mcL Eosinophils # (0.0-0.6) K/mcL Basophils # (0.0-0.2) K/mcL PT (9.4-12.1) Seconds INR Lactic Acid (0.5-2.2) mmol/L B-Natriuretic Peptide 2117 H (Less than 100) pg/mL
[2018-02-11] MEDS ORDERED: *HR* OxyCODONE/APAP 5/325 TABLET PO ONE (05:29)
[2018-02-11 05:55] LABS: Basophils # 0.1 K/mcL (0.0-0.2); Basophils % 0.9 %; Eosinophils # 0.3 K/mcL (0.0-0.6); Eosinophils % 3.5 %; Hematocrit 37.9 % (37.5-50.1); Hemoglobin 12.3 g/dL (12.9-16.9); Immature Granulocytes % 0.3 % (0-4); Lymphocytes # 1.2 K/mcL (0.6-4.6); Lymphocytes % 15.7 %; Mean Corpuscular HGB Conc 32.5 g/dL (31.6-35.5); Mean Corpuscular Hemoglobin 29.6 pg (28.0-33.3); Mean Corpuscular Volume 91.1 fL (83.0-100.0); Mean Platelet Volume 10.2 fL (9.4-12.4); Monocytes # 0.8 K/mcL (0.0-1.3); Monocytes % 10.4 %; Neutrophils # 5.2 K/mcL (1.6-8.9); Platelet Count 158 K/mcL (140-400); Red Blood Count 4.16 M/mcL (4.19-5.50); Red Cell Distribution Width 14.7 % (11.5-14.5); Segmented Neutrophils % 69.2 %
[2018-02-11 06:06] LABS: INR 1.3; Prothrombin Time 13.9 Seconds (9.4-12.1)
[2018-02-11 06:22] LABS: Albumin 3.2 g/dL (3.5-5.7); Albumin/Globulin Ratio 1.1 (1.1-2.2); Bilirubin,Direct 0.1 mg/dL (0.0-0.2); Bilirubin,Indirect 0.6 mg/dL (0.0-1.2); Bilirubin,Total 0.7 mg/dL (0.3-1.0); Calcium 9.9 mg/dL (8.6-10.3); Phosphorous 10.6 mg/dL (2.7-4.5); Total Protein 6.2 g/dL (6.4-8.9)
[2018-02-11] MEDS ORDERED: *HR* HYDROcodone/Acet 5/325 mg TABLET PO ONE (06:37)
--- NOTE | 2018-02-11 07:13 | Emergency Department Note ---
Disposition Clinical Impression: Cellulitis of left lower extremity, End stage renal disease on dialysis Disposition: Admitted As Inpatient Condition: Good Referrals: NONE,PCP [Primary Care Provider] - Forms: ED Satisfaction Letter Time of Disposition: 08:44 General Adult HPI - General Chief complaint: ED Extremity Problem,Nontraumatic Stated complaint: left leg pain Time Seen by Provider: 02/11/18 04:07 Source: patient Limitations: no limitations - History of Present Illness Location: left, lower extremity Pain Scale: 8 Quality: aching Improves with: nothing Worsens with: nothing Associated symptoms: Reports: fever/chills. Denies: nausea/vomiting - Related Data Home Medications Medication Instructions Recorded Confirmed Aspirin [Lo-Dose Aspirin EC] 81 mg PO DAILY 04/25/17 02/11/18 Sevelamer [Renvela] 1,600 mg PO TIDWM 04/25/17 02/11/18 Cinacalcet HCl [Sensipar] 90 mg PO DAILY 12/08/17 02/11/18 Allergies Allergy/AdvReac Type Severity Reaction Status Date / Time No Known Allergies Allergy Verified 02/11/18 07:19 Constitutional: Denies: fever, chills, weakness Eyes: Denies: eye discharge ENT ED: Denies: throat pain Cardiovascular: Denies: chest pain, palpitations Respiratory: Denies: cough, dyspnea, wheezes Gastrointestinal: Denies: abdominal pain, nausea, vomiting Musculoskeletal: Reports: as per HPI Neurological: Denies: weakness Endocrine: Denies: fatigue Hematological/Lymphatic: Denies: easy bleeding Allergic/Immunologic: Denies: facial swelling Past Medical History - Past Medical History Medical history: Reports: cardiomyopathy, CHF, dialysis, hyperlipidemia, hypertension, liver disease, renal disease, other Surgical history: Reports: orthopedic, other, vascular surgery, other Psychiatric history: Reports: anxiety, depression - Social History Smoking Status: Current every day smoker Smokeless Tobacco Status: No Alcohol use: Reports: none Drug use: Reports: none Physical Exam - General Limitations: no limitations General appearance: alert, in no apparent distress Course Course Narrative: 0600: I have assumed care of this patient from PATRICIA Zuleta due to mid-level shift change. Please see Song's documentation for care performed prior to my arrival. Briefly, this is a 32-year-old alert and oriented male that arrives by EMS for complaints of left lower extremity pain, swelling, and redness. He stated that he has a habit of picking and scratching his leg which caused a small abrasion. He has a history of chronic kidney disease and is on Friday dialysis. He states that he missed his last dialysis appointment this past Friday because of "issues". He denies any shortness of breath, fever, chills, nausea, or vomiting. Left lower extremity does appear cellulitic from the mid mulligan, distally. We will obtain a venous Doppler of the left lower extremity to rule out a DVT. The patient likely be admitted for further management as well as hemodialysis given that his creatinine is over 12 today. 0842: Spoke with Dr. Cannon of the hospitalist service who has accepted the patient for admission. I discussed this plan with Dr. Yañez, ED attending. Dr. Yañez has had a [id number] evaluation with the patient and agrees with this plan. 0845: As a courtesy to the hospitalist service, I have consult with Dr. Guevara, video game animator, regarding the need for dialysis in house. Vital Signs Temperature 97.7 F 02/11/18 04:01 Pulse Rate 95 02/11/18 04:01 Respiratory Rate 22 02/11/18 04:01 Blood Pressure 160/121 02/11/18 04:01 O2 Sat by Pulse Oximetry 96 02/11/18 04:01 Temperature 97.7 F 02/11/18 04:01 Pulse Rate 90 02/11/18 07:38 Respiratory Rate 14 02/11/18 07:38 Blood Pressure 150/99 02/11/18 07:38 O2 Sat by Pulse Oximetry 94 02/11/18 07:38 Oxygen Delivery Oxygen Delivery Room Air Medical Decision Making - Medical Records Medical records reviewed: Yes I reviewed the patient's medical records. - Lab Data Lab results reviewed: Yes I reviewed the patient's lab results. Lab results narrative: Laboratory Last Values WBC 7.5 K/mcL (4.3-11.1) 02/11/18 05:39 RBC 4.16 M/mcL (4.19-5.50) L 02/11/18 05:39 Hgb 12.3 g/dL (12.9-16.9) L 02/11/18 05:39 Hct 37.9 % (37.5-50.1) 02/11/18 05:39 MCV 91.1 fL (83.0-100.0) 02/11/18 05:39 MCH 29.6 pg (28.0-33.3) 02/11/18 05:39 MCHC 32.5 g/dL (31.6-35.5) 02/11/18 05:39 RDW 14.7 % (11.5-14.5) H 02/11/18 05:39 Plt Count 158 K/mcL (140-400) 02/11/18 05:39 MPV 10.2 fL (9.4-12.4) 02/11/18 05:39 Immature Gran % 0.3 % (0-4) 02/11/18 05:39 Seg Neutrophils % 69.2 % 02/11/18 05:39 Lymphocytes % 15.7 % 02/11/18 05:39 Monocytes % 10.4 % 02/11/18 05:39 Eosinophils % 3.5 % 02/11/18 05:39 Basophils % 0.9 % 02/11/18 05:39 Neutrophils # 5.2 K/mcL (1.6-8.9) 02/11/18 05:39 Lymphocytes # 1.2 K/mcL (0.6-4.6) 02/11/18 05:39 Monocytes # 0.8 K/mcL (0.0-1.3) 02/11/18 05:39 Eosinophils # 0.3 K/mcL (0.0-0.6) 02/11/18 05:39 Basophils # 0.1 K/mcL (0.0-0.2) 02/11/18 05:39 PT 13.9 Seconds (9.4-12.1) H 02/11/18 05:39 INR 1.3 02/11/18 05:39 Sodium 133 mEq/L (136-145) L 02/11/18 05:39 Potassium 6.0 mEq/L (3.5-5.1) H 02/11/18 05:39 Chloride 96 mEq/L (98-107) L 02/11/18 05:39 Carbon Dioxide 22 mEq/L (23-29) L 02/11/18 05:39 BUN 67 mg/dL (6-20) H 02/11/18 05:39 Creatinine 12.86 mg/dL (0.70-1.30) H 02/11/18 05:39 Est GFR ( Amer) 5 (> 60) L 02/11/18 05:39 Est GFR (Non-Af Amer) 5 (> 60) L 02/11/18 05:39 BUN/Creatinine Ratio 5 (6-26) L 02/11/18 05:39 Glucose 88 mg/dL (70-105) 02/11/18 05:39 Calculated Osmolality 295 (280-300) 02/11/18 05:39 Lactic Acid 0.7 mmol/L (0.5-2.2) 02/11/18 05:39 Calcium 9.9 mg/dL (8.6-10.3) 02/11/18 05:39 Phosphorus 10.6 mg/dL (2.7-4.5) H 02/11/18 05:39 Total Bilirubin 0.7 mg/dL (0.3-1.0) 02/11/18 05:39 Direct Bilirubin 0.1 mg/dL (0.0-0.2) 02/11/18 05:39 Indirect Bilirubin 0.6 mg/dL (0.0-1.2) 02/11/18 05:39 AST 7 Units/L (13-39) L 02/11/18 05:39 ALT 4 Units/L (7-52) L 02/11/18 05:39 Alkaline Phosphatase 138 Units/L (34-104) H 02/11/18 05:39 B-Natriuretic Peptide 2117 pg/mL (Less than 100) H 02/11/18 05:39 Serum Total Protein 6.2 g/dL (6.4-8.9) L 02/11/18 05:39 Albumin 3.2 g/dL (3.5-5.7) L 02/11/18 05:39 Globulin 3.0 g/dL (2.4-3.5) 02/11/18 05:39 Albumin/Globulin Ratio 1.1 (1.1-2.2) 02/11/18 05:39 Result diagrams: 02/11/18 05:39 02/11/18 05:39 Lab Results 02/11/18 02/11/18 02/11/18 Range/Units 05:39 05:39 05:39 WBC 7.5 (4.3-11.1) K/mcL RBC 4.16 L (4.19-5.50) M/mcL Hgb 12.3 L (12.9-16.9) g/dL Hct 37.9 (37.5-50.1) % MCV 91.1 (83.0-100.0) fL MCH 29.6 (28.0-33.3) pg MCHC 32.5 (31.6-35.5) g/dL RDW 14.7 H (11.5-14.5) % Plt Count 158 (140-400) K/mcL MPV 10.2 (9.4-12.4) fL Immature Gran % 0.3 (0-4) % Seg Neutrophils % 69.2 % Lymphocytes % 15.7 % Monocytes % 10.4 % Eosinophils % 3.5 % Basophils % 0.9 % Neutrophils # 5.2 (1.6-8.9) K/mcL Lymphocytes # 1.2 (0.6-4.6) K/mcL Monocytes # 0.8 (0.0-1.3) K/mcL Eosinophils # 0.3 (0.0-0.6) K/mcL Basophils # 0.1 (0.0-0.2) K/mcL PT 13.9 H (9.4-12.1) Seconds INR 1.3 Sodium 133 L (136-145) mEq/L Potassium 6.0 H (3.5-5.1) mEq/L Chloride 96 L (98-107) mEq/L Carbon Dioxide 22 L (23-29) mEq/L BUN 67 H (6-20) mg/dL Creatinine 12.86 H (0.70-1.30) mg/dL Est GFR ( Amer) 5 L (> 60) Est GFR (Non-Af Amer) 5 L (> 60) BUN/Creatinine Ratio 5 L (6-26) Glucose 88 (70-105) mg/dL Calculated Osmolality 295 (280-300) Lactic Acid (0.5-2.2) mmol/L Calcium 9.9 (8.6-10.3) mg/dL Phosphorus 10.6 H (2.7-4.5) mg/dL Total Bilirubin 0.7 (0.3-1.0) mg/dL Direct Bilirubin 0.1 (0.0-0.2) mg/dL Indirect Bilirubin 0.6 (0.0-1.2) mg/dL AST 7 L (13-39) Units/L ALT 4 L (7-52) Units/L Alkaline Phosphatase 138 H (34-104) Units/L B-Natriuretic Peptide (Less than 100) pg/mL Serum Total Protein 6.2 L (6.4-8.9) g/dL Albumin 3.2 L (3.5-5.7) g/dL Globulin 3.0 (2.4-3.5) g/dL Albumin/Globulin Ratio 1.1 (1.1-2.2) 02/11/18 02/11/18 Range/Units 05:39 05:39 WBC (4.3-11.1) K/mcL RBC (4.19-5.50) M/mcL Hgb (12.9-16.9) g/dL Hct (37.5-50.1) % MCV (83.0-100.0) fL MCH (28.0-33.3) pg MCHC (31.6-35.5) g/dL RDW (11.5-14.5) % Plt Count (140-400) K/mcL MPV (9.4-12.4) fL Immature Gran % (0-4) % Seg Neutrophils % % Lymphocytes % % Monocytes % % Eosinophils % % Basophils % % Neutrophils # (1.6-8.9) K/mcL Lymphocytes # (0.6-4.6) K/mcL Monocytes # (0.0-1.3) K/mcL Eosinophils # (0.0-0.6) K/mcL Basophils # (0.0-0.2) K/mcL PT (9.4-12.1) Seconds INR Sodium (136-145) mEq/L Potassium (3.5-5.1) mEq/L Chloride (98-107) mEq/L Carbon Dioxide (23-29) mEq/L BUN (6-20) mg/dL Creatinine (0.70-1.30) mg/dL Est GFR ( Amer) (> 60) Est GFR (Non-Af Amer) (> 60) BUN/Creatinine Ratio (6-26) Glucose (70-105) mg/dL Calculated Osmolality (280-300) Lactic Acid 0.7 (0.5-2.2) mmol/L Calcium (8.6-10.3) mg/dL Phosphorus (2.7-4.5) mg/dL Total Bilirubin (0.3-1.0) mg/dL Direct Bilirubin (0.0-0.2) mg/dL Indirect Bilirubin (0.0-1.2) mg/dL AST (13-39) Units/L ALT (7-52) Units/L Alkaline Phosphatase (34-104) Units/L B-Natriuretic Peptide 2117 H (Less than 100) pg/mL Serum Total Protein (6.4-8.9) g/dL Albumin (3.5-5.7) g/dL Globulin (2.4-3.5) g/dL Albumin/Globulin Ratio (1.1-2.2) - Radiology Data Radiology results reviewed: Yes I reviewed the patient's radiology results. Chest X-Ray 02/11/18 05:10 IMPRESSION: Cardiomegaly and pulmonary edema. D/ / Garth Mansfiedl MD / Garth Mansfield MD Interpreting Provider: Garth Mansfield MD
--- NOTE | 2018-02-11 08:21 | Emergency Department Note ---
Disposition Clinical Impression: Pain and swelling of left lower extremity Disposition: Admitted As Inpatient Condition: Good Referrals: NONE,PCP [Primary Care Provider] - Forms: ED Satisfaction Letter General Adult HPI - General Chief complaint: ED Extremity Problem,Nontraumatic Stated complaint: left leg pain Time Seen by Provider: 02/11/18 04:07 Source: patient Limitations: no limitations - History of Present Illness Location: left, lower extremity Pain Scale: 8 Quality: aching Improves with: nothing Worsens with: nothing Associated symptoms: Reports: fever/chills. Denies: nausea/vomiting - Related Data Home Medications Medication Instructions Recorded Confirmed Aspirin [Lo-Dose Aspirin EC] 81 mg PO DAILY 04/25/17 02/11/18 Sevelamer [Renvela] 1,600 mg PO TIDWM 04/25/17 02/11/18 Cinacalcet HCl [Sensipar] 90 mg PO DAILY 12/08/17 02/11/18 Allergies Allergy/AdvReac Type Severity Reaction Status Date / Time No Known Allergies Allergy Verified 02/11/18 07:19 Constitutional: Denies: fever, chills, weakness Eyes: Denies: eye discharge ENT ED: Denies: throat pain Cardiovascular: Denies: chest pain, palpitations Respiratory: Denies: cough, dyspnea, wheezes Gastrointestinal: Denies: abdominal pain, nausea, vomiting Musculoskeletal: Reports: as per HPI Neurological: Denies: weakness Endocrine: Denies: fatigue Hematological/Lymphatic: Denies: easy bleeding Allergic/Immunologic: Denies: facial swelling Past Medical History - Past Medical History Medical history: Reports: cardiomyopathy, CHF, dialysis, hyperlipidemia, hypertension, liver disease, renal disease, other Surgical history: Reports: orthopedic, other, vascular surgery, other Psychiatric history: Reports: anxiety, depression - Social History Smoking Status: Current every day smoker Smokeless Tobacco Status: No Alcohol use: Reports: none Drug use: Reports: none Physical Exam - General Limitations: no limitations General appearance: alert, in no apparent distress Course - Reevaluation(s) Reevaluation #1: ATTESTATION NOTE I examined this patient and my medical decision-making was reviewed with the Resident Physician/OBSTETRICIAN/GYNECOLOGIST/PA. I agree with the documented findings, disposition and treatment plan as described except to the extent set forth below. I have independently evaluated the patient, & had [id number] contact. Patient was seen with the nurse practitioner Pollo Leeann, please see a copy of her notes for details of the patient encounter. Briefly: 32-year-old male 3 times a week dialysis dependent presents with right lower extremity cellulitis. Patient getting IV vancomycin and meal tray screening labs and admission. Patient will also get a tetanus booster. Admission disposition pending Time: 08:18 Vital Signs Temperature 97.7 F 02/11/18 04:01 Pulse Rate 95 02/11/18 04:01 Respiratory Rate 22 02/11/18 04:01 Blood Pressure 160/121 02/11/18 04:01 O2 Sat by Pulse Oximetry 96 02/11/18 04:01 Temperature 97.7 F 02/11/18 04:01 Pulse Rate 90 02/11/18 07:38 Respiratory Rate 14 02/11/18 07:38 Blood Pressure 150/99 02/11/18 07:38 O2 Sat by Pulse Oximetry 94 02/11/18 07:38 Oxygen Delivery Oxygen Delivery Room Air Medical Decision Making - Lab Data Result diagrams: 02/11/18 05:39 02/11/18 05:39 Lab Results 02/11/18 02/11/18 02/11/18 Range/Units 05:39 05:39 05:39 WBC 7.5 (4.3-11.1) K/mcL RBC 4.16 L (4.19-5.50) M/mcL Hgb 12.3 L (12.9-16.9) g/dL Hct 37.9 (37.5-50.1) % MCV 91.1 (83.0-100.0) fL MCH 29.6 (28.0-33.3) pg MCHC 32.5 (31.6-35.5) g/dL RDW 14.7 H (11.5-14.5) % Plt Count 158 (140-400) K/mcL MPV 10.2 (9.4-12.4) fL Immature Gran % 0.3 (0-4) % Seg Neutrophils % 69.2 % Lymphocytes % 15.7 % Monocytes % 10.4 % Eosinophils % 3.5 % Basophils % 0.9 % Neutrophils # 5.2 (1.6-8.9) K/mcL Lymphocytes # 1.2 (0.6-4.6) K/mcL Monocytes # 0.8 (0.0-1.3) K/mcL Eosinophils # 0.3 (0.0-0.6) K/mcL Basophils # 0.1 (0.0-0.2) K/mcL PT 13.9 H (9.4-12.1) Seconds INR 1.3 Sodium 133 L (136-145) mEq/L Potassium 6.0 H (3.5-5.1) mEq/L Chloride 96 L (98-107) mEq/L Carbon Dioxide 22 L (23-29) mEq/L BUN 67 H (6-20) mg/dL Creatinine 12.86 H (0.70-1.30) mg/dL Est GFR ( Amer) 5 L (> 60) Est GFR (Non-Af Amer) 5 L (> 60) BUN/Creatinine Ratio 5 L (6-26) Glucose 88 (70-105) mg/dL Calculated Osmolality 295 (280-300) Lactic Acid (0.5-2.2) mmol/L Calcium 9.9 (8.6-10.3) mg/dL Phosphorus 10.6 H (2.7-4.5) mg/dL Total Bilirubin 0.7 (0.3-1.0) mg/dL Direct Bilirubin 0.1 (0.0-0.2) mg/dL Indirect Bilirubin 0.6 (0.0-1.2) mg/dL AST 7 L (13-39) Units/L ALT 4 L (7-52) Units/L Alkaline Phosphatase 138 H (34-104) Units/L B-Natriuretic Peptide (Less than 100) pg/mL Serum Total Protein 6.2 L (6.4-8.9) g/dL Albumin 3.2 L (3.5-5.7) g/dL Globulin 3.0 (2.4-3.5) g/dL Albumin/Globulin Ratio 1.1 (1.1-2.2) 02/11/18 02/11/18 Range/Units 05:39 05:39 WBC (4.3-11.1) K/mcL RBC (4.19-5.50) M/mcL Hgb (12.9-16.9) g/dL Hct (37.5-50.1) % MCV (83.0-100.0) fL MCH (28.0-33.3) pg MCHC (31.6-35.5) g/dL RDW (11.5-14.5) % Plt Count (140-400) K/mcL MPV (9.4-12.4) fL Immature Gran % (0-4) % Seg Neutrophils % % Lymphocytes % % Monocytes % % Eosinophils % % Basophils % % Neutrophils # (1.6-8.9) K/mcL Lymphocytes # (0.6-4.6) K/mcL Monocytes # (0.0-1.3) K/mcL Eosinophils # (0.0-0.6) K/mcL Basophils # (0.0-0.2) K/mcL PT (9.4-12.1) Seconds INR Sodium (136-145) mEq/L Potassium (3.5-5.1) mEq/L Chloride (98-107) mEq/L Carbon Dioxide (23-29) mEq/L BUN (6-20) mg/dL Creatinine (0.70-1.30) mg/dL Est GFR ( Amer) (> 60) Est GFR (Non-Af Amer) (> 60) BUN/Creatinine Ratio (6-26) Glucose (70-105) mg/dL Calculated Osmolality (280-300) Lactic Acid 0.7 (0.5-2.2) mmol/L Calcium (8.6-10.3) mg/dL Phosphorus (2.7-4.5) mg/dL Total Bilirubin (0.3-1.0) mg/dL Direct Bilirubin (0.0-0.2) mg/dL Indirect Bilirubin (0.0-1.2) mg/dL AST (13-39) Units/L ALT (7-52) Units/L Alkaline Phosphatase (34-104) Units/L B-Natriuretic Peptide 2117 H (Less than 100) pg/mL Serum Total Protein (6.4-8.9) g/dL Albumin (3.5-5.7) g/dL Globulin (2.4-3.5) g/dL Albumin/Globulin Ratio (1.1-2.2)
[2018-02-11] MEDS ORDERED: Tdap (ADACEL) Vaccine 0.5 ML IM ONE (08:23)
[2018-02-11] MEDS ORDERED: ceFAZolin 1,000 MG in 0.9 % Sodium Chloride Mini Bag 100 ML IVPB ONE (08:53)
[2018-02-11] MEDS ORDERED: Ondansetron 4 MG/2 ML VIAL IVP PRN (09:24)
[2018-02-11] MEDS ORDERED: *HR* Promethazine 25 MG/ML VIAL IVP PRN (09:24)
[2018-02-11] MEDS ORDERED: Naloxone 0.4 MG/ML INJ IVP PRN (09:24)
[2018-02-11] MEDS ORDERED: 0.9 % Sodium Chloride 250 ML IVC PRN (10:38)
[2018-02-11] MEDS ORDERED: 0.9 % Sodium Chloride 1,000 ML PRIME SCH (10:45)
--- NOTE | 2018-02-11 11:08 | Nephrology Consult Note ---
Date of Encounter: 02/11/18 Time of Encounter: 11:06 Assessment and Plan (1) Cellulitis of left lower extremity Current Visit: Yes Status: Acute Antibiotic per primary team. (2) ESRD (end stage renal disease) on dialysis Current Visit: Yes Status: Chronic HD MWF. Renal vitamins. Renal dose medications. Renal diet. Additional dialysis and ultrafiltration as needed. Plan for dialysis today. (3) HTN (hypertension), benign Current Visit: No Status: Chronic Continue home medications and titrate and hypertensive medication as needed. (4) Anemia in CKD (chronic kidney disease) Current Visit: No Status: Chronic Mild anemia. Follow hemoglobin levels. Qualifiers: Chronic kidney disease stage: on chronic dialysis Qualified Code(s): N18.6 - End stage renal disease; D63.1 - Anemia in chronic kidney disease; Z99.2 - Dependence on renal dialysis History of Present Illness - Reason for Consult Consult date: 02/11/18 end stage renal disease - Chief Complaint ESRD - History of Present Illness Mr. Snyder is a 32-year-old man with a complicated medical history who comes to the ER with left lower leg cellulitis. The patient receives dialysis Friday at the [facility] dialysis unit via a right upper arm fistula under the direction of [facility]. He is well-known to our service. He missed his dialysis the Friday prior to admission and he presents today with left lower leg cellulitis. He denies chest pain, shortness of breath, nausea, vomiting, or any other problems other than his cellulitis. Past Med Surg Social Fam HX - Past Medical History Medical history: cardiomyopathy, CHF, dialysis, hyperlipidemia, hypertension, liver disease, renal disease, other Additional medical history: L shunt Psychiatric history: anxiety, depression - Past Surgical History Surgical History: orthopedic, other, vascular surgery, other Additional surgical history: right hip, pins and plates. Bladder surgery. - Social History Smoking Status: Current every day smoker Smokeless Tobacco Status: No Alcohol use: none Drug use: none - Family History Mother Adopted: No Living Status: Still Living Hx Family Cardiac Disorders: Yes (Stroke) Hx Family Respiratory Disorders: No Hx Family Cancer: No Hx Family GI Disorders: No Hx Family Endocrine Disorder: Yes (DM) Hx Family Neuromuscular Disorders: No Hx Family Neurologic Disorders: No Hx Family HEENT Disorders: No Hx Family Autoimmune Disorders: No Father Living Status: Hx Family Cardiac Disorders: Yes (CAD) Hx Family Respiratory Disorders: No Hx Family Cancer: No Hx Family GI Disorders: No Hx Family Endocrine Disorder: Yes (Diabetes) Hx Family Neuromuscular Disorders: No Hx Family Neurologic Disorders: No Hx Family HEENT Disorders: No Hx Family Autoimmune Disorders: No Medications and Allergies Aspirin [Lo-Dose Aspirin EC] 81 mg PO DAILY 04/25/17 [History] Sevelamer [Renvela] 1,600 mg PO TIDWM 04/25/17 [History] Cinacalcet HCl [Sensipar] 90 mg PO DAILY 12/08/17 [History] 3 Allergy/AdvReac Type Severity Reaction Status Date / Time No Known Allergies Allergy Verified 02/11/18 07:19 Review of Systems All Systems: reviewed and no additional remarkable complaints except as stated ( as per history of present illness) Exam - Vital Signs Vital signs: Initial Vital Signs Temp Pulse Resp BP Pulse Ox 97.7 F 95 22 160/121 96 02/11/18 04:01 02/11/18 04:01 02/11/18 04:01 02/11/18 04:01 02/11/18 04:01 Vital Signs - Last 8 Hours Temp Pulse Resp BP Pulse Ox 02/11/18 10:52 97.7 F 89 20 151/98 96 02/11/18 10:00 12 134/94 Intake and Output 02/10/18 02/11/18 02/11/18 23:59 07:59 15:59 Intake Total 100 / 100 Balance 100 / 100 Intake: IV Fluids 100 / 100 Ancef 1,000 MG In 0.9 % Sodium 100 / 100 Chloride (Mini-Bag +) 100 ML @ 200 mls/hr IVPB ONCE ONE Rx#: [id number] Other: Weight 153.8 kg Patient Weight 02/11/18 23:59 Weight 153.8 kg - General Appearance General appearance: well-developed, well-nourished EENT: ATNC Neck: supple Respiratory: course breath sounds Cardiology: edema, regular rhythm, rapid rhythm - Dialysis Access Dialysis Vascular Access: Arteriovenous Fistula thrill: Yes bruit: Yes Gastrointestinal: no tenderness, obese Integumentary: warm and dry Neurologic: alert and oriented x3 Musculoskeletal: no cyanosis Psychiatric: mood/affect appropriate Results - Lab Results 02/11/18 05:39 02/11/18 05:39 Most recent lab results Calcium 9.9 mg/dL (8.6-10.3) 02/11/18 05:39 Phosphorus 10.6 mg/dL (2.7-4.5) H 02/11/18 05:39 Consult Discharge Plan - Plan Referrals: NONE,PCP [Primary Care Provider] -
[2018-02-11] MEDS: *HR* HYDROcodone/Acet 5/325 mg TABLET PO PRN ×2 (11:46→21:03)
--- NOTE | 2018-02-11 13:15 | Internal Med History&Physical ---
Date of Encounter: 02/11/18 Time of Encounter: 08:30 Internal Medicine - H&P: HPI Chief complaint: Left leg cellulities, SOB, Leg swelling Admitted From: Emergency Dept Plans for Post Hospital Care: Home History of present illness: Mr. Snyder is a 32 year old male with past medical history of non ischemic cardiomyopathy with LVEF 30%, combined heart failure, HTN, ESRD, noncompliance patient and decompensated liver cirrhosis presented emergency room complaining about his been having worsening swelling in both legs as well as redness in left lower extremity. He he did miss his Friday hemodialysis now he feels like more short of breath as well as dyspnea on exertion. He also gets frequent paracentesis every 2 weeks for his ascites, now he complained about increasing abdominal girth. He denied of any fever or chills Past Med Surg Social Fam HX - Past Medical History Medical history: cardiomyopathy, CHF, dialysis, hyperlipidemia, hypertension, liver disease, renal disease, other Additional medical history: L shunt Psychiatric history: anxiety, depression - Past Surgical History Surgical History: orthopedic, other, vascular surgery, other Additional surgical history: right hip, pins and plates. Bladder surgery. - Social History Smoking Status: Current every day smoker Smokeless Tobacco Status: No Alcohol use: none Drug use: none - Family History Mother Adopted: No Living Status: Still Living Hx Family Cardiac Disorders: Yes (Stroke) Hx Family Respiratory Disorders: No Hx Family Cancer: No Hx Family GI Disorders: No Hx Family Endocrine Disorder: Yes (DM) Hx Family Neuromuscular Disorders: No Hx Family Neurologic Disorders: No Hx Family HEENT Disorders: No Hx Family Autoimmune Disorders: No Father Living Status: Hx Family Cardiac Disorders: Yes (CAD) Hx Family Respiratory Disorders: No Hx Family Cancer: No Hx Family GI Disorders: No Hx Family Endocrine Disorder: Yes (Diabetes) Hx Family Neuromuscular Disorders: No Hx Family Neurologic Disorders: No Hx Family HEENT Disorders: No Hx Family Autoimmune Disorders: No Internal Medicine - H&P: Meds Aspirin [Lo-Dose Aspirin EC] 81 mg PO DAILY 04/25/17 [History] Sevelamer [Renvela] 1,600 mg PO TIDWM 04/25/17 [History] Cinacalcet HCl [Sensipar] 90 mg PO DAILY 12/08/17 [History] 3 Allergy/AdvReac Type Severity Reaction Status Date / Time No Known Allergies Allergy Verified 02/11/18 07:19 All Systems PM: A 10-system review of systems was performed and is negative for pertinent findings except as documented above in the HPI. Review of systems: All the systems are reviewed everything is benign except the systems and symptoms I mentioned in the history of present illness - Constitutional Vitals: Temp Pulse Resp BP Pulse Ox 97.7 F 89 20 151/98 96 02/11/18 10:52 02/11/18 10:52 02/11/18 10:52 02/11/18 10:52 02/11/18 10:52 General appearance: Present: cooperative, mild distress, A&O X 3, answers questions appropriately - Head Head exam: Present: atraumatic, normal inspection - Respiratory Respiratory exam: Present: decreased breath sounds, rales, respiratory distress (mild), wheezes. Absent: rhonchi - Cardiovascular Cardiovascular exam: Present: RRR, +S1, +S2. Absent: tachycardia - GI/Abdominal GI/Abdominal exam: Present: distended, normal bowel sounds, soft. Absent: rebound, rigid, tenderness - Extremities Exam Extremities exam: Present: pedal edema. Absent: calf tenderness, tenderness Additional comments: Mild edema noticed on the left lower extremity distally he does have a couple of scratch llanes with skin breaks on the left lower leg - Back Exam Back exam: Absent: CVA tenderness (L), CVA tenderness (R) - Neurological Exam Neurological exam: Present: alert, oriented X3 - Psychiatric Psychiatric exam: Present: normal affect, normal mood - Skin Skin exam: Present: rash Internal Med - H&P Results - Labs CBC & Chem 7: 02/11/18 05:39 02/11/18 05:39 - Assessment and plan (1) Fluid overload Current Visit: No Status: Acute Assessment and plan: Due to missing HD Consulted Nephro for possible emergent HD today Qualifiers: Hypervolemia type: other Qualified Code(s): E87.79 - Other fluid overload (2) Cellulitis of left lower extremity Current Visit: Yes Status: Acute Assessment and plan: Mild erythema noticed started him on Ancef cont close monitoring (3) ESRD (end stage renal disease) on dialysis Current Visit: Yes Status: Chronic Assessment and plan: Missed HD on Friday (4) Cirrhosis of liver with ascites Current Visit: No Status: Chronic Assessment and plan: IR consulted for paracentesis Qualifiers: Hepatic cirrhosis type: unspecified hepatic cirrhosis Qualified Code(s): K74.60 - Unspecified cirrhosis of liver (5) Hypertension Current Visit: No Status: Chronic Assessment and plan: stable BP resumed home medications Qualifiers: Hypertension type: essential hypertension Qualified Code(s): I10 - Essential (primary) hypertension (6) Systolic heart failure Current Visit: No Status: Chronic Assessment and plan: He is in mild exacerbation due to missing HD Nephro consulted for HD Qualifiers: Heart failure chronicity: chronic Qualified Code(s): I50.22 - Chronic systolic (congestive) heart failure (7) Non-ischemic cardiomyopathy Current Visit: No Status: Chronic Assessment and plan: may need AICD placement He is high risk pt, due to his ESRD, develops electrolyts abnormality which can cause frequent arrythamias too will consult card (8) Obesity, morbid, BMI 40.0-49.9 Current Visit: No Status: Chronic - Time Spent With Patient Total time spent is greater than 50% in coordination of care (as documented) at patient's floor/unit and/or counseling patient:
[2018-02-11] MEDS: ceFAZolin 1,000 MG in 0.9 % Sodium Chloride Mini Bag 100 ML IVPB SCH (17:11)
[2018-02-11] MEDS ORDERED: Perflutren Lipid Microsphere 1.3 ML in 0.9 % Sodium Chloride 8.7 ML IVP ONE (19:22)
[2018-02-12] MEDS: *HR* HYDROcodone/Acet 5/325 mg TABLET PO PRN ×4 (03:25→23:54)
[2018-02-12 05:09] LABS: Basophils # 0.1 K/mcL (0.0-0.2); Eosinophils # 0.3 K/mcL (0.0-0.6); Hemoglobin 12.3 g/dL (12.9-16.9); Immature Granulocytes % 0.2 % (0-4); Lymphocytes % 17.4 %; Mean Corpuscular HGB Conc 32.4 g/dL (31.6-35.5); Mean Corpuscular Hemoglobin 29.7 pg (28.0-33.3); Mean Corpuscular Volume 91.8 fL (83.0-100.0); Mean Platelet Volume 10.1 fL (9.4-12.4); Monocytes # 0.7 K/mcL (0.0-1.3); Monocytes % 12.6 %; Neutrophils # 3.7 K/mcL (1.6-8.9); Platelet Count 122 K/mcL (140-400); Red Blood Count 4.14 M/mcL (4.19-5.50); Red Cell Distribution Width 14.8 % (11.5-14.5); Segmented Neutrophils % 63.8 %
[2018-02-12 05:36] LABS: Bilirubin,Total 0.5 mg/dL (0.3-1.0); Calcium 9.4 mg/dL (8.6-10.3); Potassium 5.1 mEq/L (3.5-5.1)
[2018-02-12] MEDS: ceFAZolin 1,000 MG in 0.9 % Sodium Chloride Mini Bag 100 ML IVPB SCH ×2 (06:20→16:55)
[2018-02-12] MEDS ORDERED: 0.9 % Sodium Chloride 250 ML IVC PRN (07:34)
[2018-02-12] MEDS ORDERED: 0.9 % Sodium Chloride 1,000 ML PRIME SCH (07:45)
[2018-02-12] MEDS ORDERED: 0.9 % Sodium Chloride 1,000 ML ONE (08:19)
--- NOTE | 2018-02-12 09:16 | Nephrology Progress Note ---
Date of Encounter: 02/12/18 Time of Encounter: 09:15 - Assessment and Plan (1) ESRD (end stage renal disease) on dialysis Current Visit: Yes Status: Chronic HD MWF at [facility]. Avoid renal toxins, renal dose medications. Renal vitamins/Binders Renal Diet. (2) Cellulitis of left lower extremity Current Visit: Yes Status: Acute Per primary team. (3) Abdominal pain Current Visit: No Status: Acute No c/o's at this time. Per primary team. Qualifiers: Abdominal location: generalized Qualified Code(s): R10.84 - Generalized abdominal pain Subjective Principal diagnosis: Left leg pain Interval history: Pt seen and examined during HD. No CP/SOB, nausea, vomiting, diarrhea. Objective - Vital Signs Vital signs: Vital Signs Temp Pulse Resp BP Pulse Ox 02/12/18 06:50 98.0 F 88 15 137/88 94 02/12/18 05:21 98.1 F 87 15 157/106 95 02/12/18 00:24 98.1 F 86 16 150/110 96 02/11/18 19:39 98.2 F 89 15 152/91 95 02/11/18 16:20 97.5 F L 19 170/97 02/11/18 16:00 151/93 02/11/18 15:45 150/92 02/11/18 15:30 155/93 02/11/18 15:15 146/88 02/11/18 15:00 151/57 02/11/18 14:45 144/84 02/11/18 14:30 150/90 02/11/18 14:15 160/90 02/11/18 14:00 164/95 02/11/18 13:45 162/92 02/11/18 13:30 170/96 02/11/18 13:15 160/108 02/11/18 13:00 148/83 02/11/18 12:45 171/102 02/11/18 12:30 154/95 02/11/18 12:15 148/74 02/11/18 12:00 97.5 F L 21 140/78 02/11/18 10:52 97.7 F 89 20 151/98 96 02/11/18 10:00 12 134/94 Intake and Output 02/11/18 02/12/18 02/12/18 23:59 07:59 15:59 Intake Total 942 / 942 540 / 540 Output Total 5600 / 5600 100 / 100 Balance -4658 / -4658 440 / 440 Intake: IV Fluids 102 / 102 Definity 1.3 ML In Normal 2 / 2 Saline Flush 8.7 ML @ 1200 mls/ hr IVP ONCE ONE Rx#:[id number] Ancef 1,000 MG In 0.9 % Sodium 100 / 100 Chloride (Mini-Bag +) 100 ML @ 200 mls/hr IVPB Q12HR MARC Rx#: [id number] Oral 840 / 840 540 / 540 Output: Urine 0 / 0 Total Dialysis (HD) Output 5600 / 5600 Catheter 100 / 100 Other: Meal Dinner Percent of Meal Consumed 100% # Bowel Movements 1 Weight 150.9 kg Hemodialysis Net Fluid Removed 5000 (mL) Patient Weight 02/12/18 23:59 Weight 150.9 kg - General Appearance General appearance: Present: well-developed, chronically ill EENT: Present: ATNC, hearing intact, vision intact Neck: Present: supple Respiratory: Present: clear Cardiology: Present: edema (+1 bilateral lower edema.) Dialysis Vascular Access: Arteriovenous Fistula (LUE) thrill: Yes bruit: Yes Gastrointestinal: Present: normoactive bowel sounds, no tenderness, no guarding Integumentary: Present: no rash, warm and dry Neurologic: Present: alert and oriented x3 Additional Comments: LLE painful to touch, no signs of streaking or erythema noted when compared to other extremity. Psychiatric: Present: mood/affect appropriate, cooperative - Lab 02/12/18 04:20 02/12/18 04:20 Most recent lab results Calcium 9.4 mg/dL (8.6-10.3) 02/12/18 04:20 Phosphorus 10.6 mg/dL (2.7-4.5) H 02/11/18 05:39 Consult Discharge Plan - Plan Referrals: NONE,PCP [Primary Care Provider] -
[2018-02-12] MEDS: Aspirin Enteric Coated 81 MG Tablet PO SCH (10:13)
--- NOTE | 2018-02-12 12:10 | Cardiology Consult Note ---
Date of Encounter: 02/12/18 Time of Encounter: 12:00 Assessment and Plan (1) Systolic CHF Current Visit: Yes Status: Acute Admits to non-compliance with medications/diet. Has failed to follow-up as outpatient with Cardiology in the past several years. Reports weights/dyspnea at baseline. Describes NYHA III symptoms. CHF teaching provided including daily weights, 2 L fluid restriction and low sodium diet. Medication/dialysis compliance reinforced. Encouraged heart healthy diet and daily exercise. Will add betablocker. Volume mgmt per HD. Consider addition of ACEi/ARB by discharge if okay by Nephrology and hyperkalemia resolved. Recommend close outpatient follow-up with [facility]. Again, he has failed to follow-up as outpatient--will coordinate appt. Will need TTE recheck in 3 months after trial of GDMT to re-assess LV function for possible AICD evaluation. Qualifiers: Heart failure chronicity: chronic Qualified Code(s): I50.22 - Chronic systolic (congestive) heart failure (2) Non-ischemic cardiomyopathy Current Visit: No Status: Chronic Plan as above. [facility] 2014: normal coronary arteries. (3) Renal failure Current Visit: No Status: Acute Hx of ESRD on HD. Follows with Nephrology. Qualifiers: Renal failure chronicity: chronic Chronic kidney disease stage: on chronic dialysis Qualified Code(s): N18.6 - End stage renal disease; Z99.2 - Dependence on renal dialysis Discussion w patient/family: The assessment and plan as outlined above was discussed with the patient and/or family members who expressed understanding and agreement. All questions were answered. Thank you for involving us in the care of your patient. Please call with any questions. The patient will be discussed and reviewed with Dr. Mora; changes to be made accordingly. History of Present Illness Consult date: 02/12/18 Requesting physician: Breana Cannon Consult reason: AICD consideration Chief complaint: Left leg pain History of present illness: Mr. Snyder is a 32 year old male with PMHx significant for NICMP, systolic CHF, ESRD on HD, and HTN who presented to the ED with complaints of severe left leg pain that started on Friday. He denies associated symptoms. Reports missed HD on Friday. He reports non-compliance with medications, diet, and fluid restriction. He has failed to f/u with Cardiology in the outpatient setting. Bilateral LE doppler negative for DVT, on IV atb for possible cellulitis. Cardiology consulted today for AICD evaluation. Prior CV testing: TTE : LVEF 25-30%, severely dilated LV TTE 11/21/15: EF 25-30%, global hypokinesis TTE 04/06/16: EF 20-25% C April 2015: normal coronary arteries; likely non-ischemic etiology. Past Med Surg Social Fam HX - Past Medical History Attestation: Yes The following information was validated with the patient. Source: patient Medical history: cardiomyopathy, CHF, dialysis, hyperlipidemia, hypertension, liver disease, renal disease, other Additional medical history: L shunt Psychiatric history: anxiety, depression - Past Surgical History Surgical History: orthopedic, other, vascular surgery, other Additional surgical history: right hip, pins and plates. Bladder surgery. - Social History Smoking Status: Current every day smoker Smokeless Tobacco Status: No Alcohol use: none Drug use: none - Family History Mother Adopted: No Living Status: Still Living Hx Family Cardiac Disorders: Yes (Stroke) Hx Family Respiratory Disorders: No Hx Family Cancer: No Hx Family GI Disorders: No Hx Family Endocrine Disorder: Yes (DM) Hx Family Neuromuscular Disorders: No Hx Family Neurologic Disorders: No Hx Family HEENT Disorders: No Hx Family Autoimmune Disorders: No Father Living Status: Hx Family Cardiac Disorders: Yes (CAD) Hx Family Respiratory Disorders: No Hx Family Cancer: No Hx Family GI Disorders: No Hx Family Endocrine Disorder: Yes (Diabetes) Hx Family Neuromuscular Disorders: No Hx Family Neurologic Disorders: No Hx Family HEENT Disorders: No Hx Family Autoimmune Disorders: No Medications and Allergies Aspirin [Lo-Dose Aspirin EC] 81 mg PO DAILY 04/25/17 [History] Sevelamer [Renvela] 1,600 mg PO TIDWM 04/25/17 [History] Cinacalcet HCl [Sensipar] 90 mg PO DAILY 12/08/17 [History] 3 Allergy/AdvReac Type Severity Reaction Status Date / Time No Known Allergies Allergy Verified 02/11/18 07:19 All Systems Review: The remainder of the systems were reviewed and are negative - Cardiovascular Cardiovascular: as per HPI Physical Examination Vital Signs, Last 4 Hours Temp Pulse Resp BP Pulse Ox 02/12/18 11:34 98.0 F 87 18 156/98 94 02/12/18 10:05 147/84 02/12/18 09:50 150/90 02/12/18 09:35 165/87 02/12/18 09:20 163/95 02/12/18 09:05 154/85 02/12/18 08:50 148/90 02/12/18 08:35 152/93 02/12/18 08:20 140/81 General: Conversant, Other (morbidly obese; appears chronically ill) HEENT: Atraumatic, Normocephaly Cardiac: Reg Rate and Rhythm, Normal S1 and S2 Lungs: Other (expiratory wheezes) Neuro: Alert and responsive Abdomen: Soft Skin: No rashes noted on visualized skin Extremities: Other (bilateral LE discoloration, mild bilateral LE edema) Results 02/12/18 04:20 02/12/18 04:20 Lab Results 02/12/18 02/12/18 04:20 04:20 WBC 5.8 Hgb 12.3 L Hct 38.0 Plt Count 122 L Sodium 135 L Potassium 5.1 Chloride 97 L Carbon Dioxide 23 BUN 44 H Creatinine 9.41 H Glucose 102 Calcium 9.4 Total Bilirubin 0.5 AST 7 L ALT 4 L Alkaline Phosphatase 137 H Active Medications Hydrocodone Bitart/Acetaminophen (Hackberry 5-325 Mg) 1 tab PO Q6HR PRN PRN Reason: Moderate Pain Stop: 08/13/18 09:25 Last Admin: 02/12/18 10:14 Dose: 1 tab Aspirin (Aspirin Ec) 81 mg PO DAILY [facility] Stop: 08/14/18 09:01 Last Admin: 02/12/18 10:13 Dose: 81 mg Cinacalcet (Sensipar) 90 mg PO DAILY [facility] Stop: 08/14/18 09:01 Last Admin: 02/12/18 10:14 Dose: 90 mg Docusate Sodium (Colace) 100 mg PO BID PRN PRN Reason: Constipation Stop: 08/13/18 21:01 Cefazolin Sodium 1,000 mg/ (Sodium Chloride) 100 mls @ 200 mls/hr IVPB Q12HR MARC PRN Reason: Protocol Stop: 08/13/18 18:01 Last Admin: 02/12/18 06:20 Dose: 200 mls/hr Sodium Chloride (0.9 % Sodium Chloride) 250 mls @ 937.5 mls/hr IVC .Q16M PRN PRN Reason: Hypotension Stop: 08/13/18 10:39 Sodium Chloride (0.9 % Sodium Chloride) 1,000 mls @ 0 mls/hr PRIME .Q0M MARC PRN Reason: As Directed Stop: 08/13/18 10:46 Sodium Chloride (0.9 % Sodium Chloride) 250 mls @ 937.5 mls/hr IVC .Q16M PRN PRN Reason: Hypotension Stop: 08/14/18 07:35 Sodium Chloride (0.9 % Sodium Chloride) 1,000 mls @ 0 mls/hr PRIME .Q0M MARC PRN Reason: As Directed Stop: 08/14/18 07:46 Naloxone HCl (Narcan) 0.4 mg IVP Q2MIN PRN PRN Reason: SEE COMMENTS Stop: 08/13/18 09:25 Ondansetron HCl (Zofran) 4 mg IVP Q8HR PRN PRN Reason: Nausea And Vomiting Stop: 08/13/18 09:25 Promethazine HCl (Phenergan) 12.5 mg IVP Q6HR PRN PRN Reason: Nausea And Vomiting Stop: 08/13/18 09:25 Sevelamer HCl (Renvela) 1,600 mg PO TIDWM MARC Stop: 08/13/18 12:01 Last Admin: 02/12/18 12:15 Dose: 1,600 mg - Imaging and Cardiology Echo: report reviewed Cardiac cath: report reviewed Other Results: 12 hour tele: avg HR=88 SR. - EKG Interpretation EKG results cardiology: personally reviewed Consult Discharge Plan - Plan Referrals: NONE,PCP [Primary Care Provider] -
[2018-02-12] MEDS: Metoprolol XL (24 HR) Succ 25 MG TAB.ER.24H PO SCH (14:09)
--- NOTE | 2018-02-12 14:36 | Internal Med Progress Note ---
Date of Encounter: 02/12/18 Time of Encounter: 14:34 - Assessment and plan (1) Non-ischemic cardiomyopathy Current Visit: Yes Status: Chronic Assessment and plan: Known history of nonischemic cardiomyopathy with combined CHF. Current echocardiogram shows ejection fraction 25-30%, severely dilated left ventricle, moderate LV diastolic dysfunction, moderate tricuspid regurgitation, mild-to- moderate pulmonary hypertension. Patient may be a candidate for AICD placement after appropriate medical management. However, he chooses to be noncompliant with several "no shows" to outpatient cardiology office. Noncompliant with medications and fluid restriction. Reinforced compliance. Cardiology recommendations appreciated. Blood pressure noted to be elevated, will start beta ronaldo. We will discuss with nephrology about starting CHEIKH inhibitor. Underwent hemodialysis today. Continue telemetry monitoring, supportive care, supplemental oxygen. (2) Obesity, morbid, BMI 40.0-49.9 Current Visit: Yes Status: Chronic (3) Hypertension Current Visit: Yes Status: Chronic Assessment and plan: Blood pressure elevated. Noncompliant with home medications. Start beta ronaldo and uptitrate. Qualifiers: Hypertension type: essential hypertension Qualified Code(s): I10 - Essential (primary) hypertension (4) Cirrhosis of liver with ascites Current Visit: Yes Status: Chronic Assessment and plan: Unclear etiology, probably cardiac cirrhosis. Periodic paracentesis as outpatient. Plan for ultrasound-guided paracentesis by IR today. Qualifiers: Hepatic cirrhosis type: unspecified hepatic cirrhosis Qualified Code(s): K74.60 - Unspecified cirrhosis of liver (5) ESRD (end stage renal disease) on dialysis Current Visit: Yes Status: Chronic Assessment and plan: Appreciate nephrology assistance with hemodialysis needs. Anticipate next dialysis session per regular schedule tomorrow. Continue Sensipar and phosphate binders. (6) Fluid overload Current Visit: Yes Status: Acute Assessment and plan: Due to noncompliance with hemodialysis. Plan as above. Qualifiers: Hypervolemia type: other Qualified Code(s): E87.79 - Other fluid overload (7) Cellulitis of left lower extremity Current Visit: Yes Status: Acute Assessment and plan: Mild left leg cellulitis noted at admission. Patient has been started on IV cefazolin. Erythema resolved today. Venous Doppler of bilateral lower extremities showed no DVT. Blood cultures negative. (8) Anxiety and depression Current Visit: Yes Status: Chronic (9) Tobacco abuse Current Visit: Yes Status: Chronic - Time Spent With Patient Total time spent is greater than 50% in coordination of care (as documented) at patient's floor/unit and/or counseling patient: - Subjective Interval history: Reports feeling better. Denies chest pain, shortness of breath, palpitations, dizziness. He only presented to the emergency room because his left leg has been painful, warm and swollen. Patient is known to be extremely noncompliant, does not remember his medications , does not seem to be taking his blood pressure meds, wishes to be full code, however continues to be noncompliant; answers "yeah yeah I know all that" to CHF education and seems quite irritable about being in the hospital in general; - Constitutional Vitals: Temp Pulse Resp BP Pulse Ox 97.7 F 87 18 163/88 94 02/12/18 12:00 02/12/18 11:34 02/12/18 12:00 02/12/18 12:00 02/12/18 11:34 General appearance: Present: cooperative, A&O X 3, morbidly obese, answers questions appropriately - Respiratory Respiratory exam: Present: CTAB. Absent: accessory muscle use, rales, rhonchi, wheezes - Cardiovascular Cardiovascular exam: Present: RRR, +S1, +S2. Absent: diastolic murmur, gallop, rubs, systolic murmur - GI/Abdominal GI/Abdominal exam: Present: distended (ascites+), normal bowel sounds, soft, no peritoneal signs. Absent: tenderness - Extremities Exam Extremities exam: Present: full ROM, pedal edema (1+ pitting pedal edema left> right), warm, radial pulses palpable and symmetrical. Absent: calf tenderness, cyanotic - Neurological Exam Neurological exam: Present: CN II-XII intact, oriented X3, no focal deficits. Absent: pronater drift, facial droop, speech deficit Internal Medicine: Result - Labs CBC & Chem 7: 02/12/18 04:20 02/12/18 04:20 Labs: Short CBC 02/12/18 Range/Units 04:20 WBC 5.8 (4.3-11.1) K/mcL Hgb 12.3 L (12.9-16.9) g/dL Hct 38.0 (37.5-50.1) % Plt Count 122 L (140-400) K/mcL Neutrophils # 3.7 (1.6-8.9) K/mcL BMP 02/12/18 04:20 Sodium 135 L Potassium 5.1 Chloride 97 L Carbon Dioxide 23 BUN 44 H Creatinine 9.41 H Glucose 102 Calcium 9.4 Liver Function 02/12/18 Range/Units 04:20 Total Bilirubin 0.5 (0.3-1.0) mg/dL AST 7 L (13-39) Units/L ALT 4 L (7-52) Units/L Alkaline Phosphatase 137 H (34-104) Units/L Albumin 3.0 L (3.5-5.7) g/dL - ABG Interpretation ABG results: PT/INR, D-dimer PT 13.9 Seconds (9.4-12.1) H 02/11/18 05:39 - Impressions Impressions Echocardiogram 02/11/18 15:22 Impressions: LVEF 25-30%. Severely dilated left ventricle. Moderate left ventricular diastolic dysfunction. There is no LV thrombus. Definity echo contrast was used. Mildly dilated and hypokinetic RV. Mild mitral regurgitation. Moderate tricuspid regurgitation. Mild-moderate pulmonary hypertension. Left Ventricular Wall Motion: Rest Echo Findings The apex, apical inferior, mid inferior, basal inferior, apical anterior, mid anterior, basal anterior, apical septal, mid inferior septal, basal inferior septal, apical lateral, mid anterior lateral, basal anterior lateral, mid anterior septal, mid inferior lateral, basal anterior septal and basal inferior lateral higgins were hypokinetic. Findings: Study Quality * Technically adequate exam. ECG Findings * Normal sinus rhythm. Left Ventricle * LVEF 25-30%. * Severely dilated left ventricle. * Moderate left ventricular diastolic dysfunction. * There is no LV thrombus. * Definity echo contrast was used. Right Ventricle * Mildly dilated and hypokinetic RV. Left Atrium * Severely dilated left atrium. Right Atrium * Moderately dilated right atrium. Mitral Valve * Normal mitral valve structure. * No mitral stenosis. * Mild mitral annular calcification * Mild mitral regurgitation. Aortic Valve * No aortic regurgitation. * Aortic valve not well visualized. * No aortic stenosis. Tricuspid Valve * Tricuspid valve not well visualized. * Moderate tricuspid regurgitation. * Estimated RA pressure is 8 mmHg. * Estimated RVSP is 49 mmHg. * Mild-moderate pulmonary hypertension. Pulmonic Valve * Pulmonic valve is not well visualized. * No pulmonic stenosis. * No pulmonic regurgitation. Pulmonary Artery * Pulmonary artery not well visualized. Aorta * Not optimally evaluated. Interatrial Septum * No evidence of PFO by color Doppler. Pericardium * There is no pericardial effusion present. IVC * The IVC is not dilated. * < 50% respiratory change. Consult Discharge Plan - Plan Referrals: NONE,PCP [Primary Care Provider] -
[2018-02-13 05:53] LABS: Basophils % 0.7 %; Eosinophils # 0.3 K/mcL (0.0-0.6); Hematocrit 34.9 % (37.5-50.1); Hemoglobin 11.6 g/dL (12.9-16.9); Immature Granulocytes % 0.3 % (0-4); Lymphocytes # 1.2 K/mcL (0.6-4.6); Lymphocytes % 19.4 %; Mean Corpuscular HGB Conc 33.2 g/dL (31.6-35.5); Mean Corpuscular Hemoglobin 30.7 pg (28.0-33.3); Mean Corpuscular Volume 92.3 fL (83.0-100.0); Mean Platelet Volume 10.7 fL (9.4-12.4); Monocytes # 0.8 K/mcL (0.0-1.3); Neutrophils # 3.6 K/mcL (1.6-8.9); Platelet Count 128 K/mcL (140-400); Red Blood Count 3.78 M/mcL (4.19-5.50); Red Cell Distribution Width 14.6 % (11.5-14.5); Segmented Neutrophils % 60.6 %
[2018-02-13] MEDS: ceFAZolin 1,000 MG in 0.9 % Sodium Chloride Mini Bag 100 ML IVPB SCH (06:12)
[2018-02-13 06:13] LABS: Calcium 8.8 mg/dL (8.6-10.3); Potassium 5.1 mEq/L (3.5-5.1)
[2018-02-13] MEDS ORDERED: 0.9 % Sodium Chloride 250 ML IVC PRN (07:49)
[2018-02-13] MEDS ORDERED: 0.9 % Sodium Chloride 1,000 ML PRIME SCH (08:00)
[2018-02-13] MEDS: *HR* HYDROcodone/Acet 5/325 mg TABLET PO PRN ×2 (09:31→14:30)
[2018-02-13] MEDS: Aspirin Enteric Coated 81 MG Tablet PO SCH (09:31)
[2018-02-13] MEDS: Metoprolol XL (24 HR) Succ 25 MG TAB.ER.24H PO SCH (09:31)
--- NOTE | 2018-02-13 13:04 | Nephrology Progress Note ---
<Reena Miller - Last Filed: 02/13/18 13:01> Date of Encounter: 02/13/18 Time of Encounter: 13:01 - Assessment and Plan (1) ESRD (end stage renal disease) on dialysis Status: Chronic HD today. HD MWF at [facility]. Avoid renal toxins, renal dose medications. Renal vitamins/Binders Renal Diet. (2) Cellulitis of left lower extremity Status: Acute LLE more swollen today, Doppler Study (-) on 02/11/18 Per primary team. (3) Abdominal pain Status: Acute No c/o's at this time. Per primary team. Qualifiers: Abdominal location: generalized Qualified Code(s): R10.84 - Generalized abdominal pain Subjective Principal diagnosis: Left leg pain Interval history: Pt seen and examined during HD. No CP/SOB, nausea, vomiting, diarrhea. Feels fatigued. Objective - Vital Signs Vital signs: Vital Signs Temp Pulse Resp BP Pulse Ox 02/13/18 11:55 145/91 02/13/18 11:40 148/83 02/13/18 11:25 148/94 02/13/18 11:10 143/83 02/13/18 10:55 140/88 02/13/18 10:40 151/79 02/13/18 10:25 123/62 02/13/18 10:10 157/95 02/13/18 09:55 128/67 02/13/18 09:40 126/72 02/13/18 09:25 123/76 02/13/18 09:10 132/74 02/13/18 08:55 99.0 F 18 137/75 02/13/18 07:56 98.1 F 80 16 145/92 94 02/13/18 04:29 98 F 76 18 132/83 97 02/13/18 00:04 98.0 F 76 16 137/93 97 02/12/18 19:44 98.5 F 82 16 143/90 95 02/12/18 16:47 98.1 F 84 16 138/91 99 Intake and Output 02/12/18 02/13/18 02/13/18 23:59 07:59 15:59 Intake Total 340 / 340 360 / 360 600 / 600 Balance 340 / 340 360 / 360 600 / 600 Intake: IV Fluids 100 / 100 Ancef 1,000 MG In 0.9 % Sodium 100 / 100 Chloride (Mini-Bag +) 100 ML @ 200 mls/hr IVPB Q12HR [facility] Rx#: [id number] Oral 240 / 240 360 / 360 0 / 0 Intake, Rinseback and Flushes 600 / 600 Other: Meal Dinner cup of coffee Percent of Meal Consumed 100% Weight 149.1 kg Hemodialysis Net Fluid Removed 4204 (mL) Patient Weight 02/13/18 23:59 Weight 149.1 kg - General Appearance General appearance: Present: chronically ill, frail EENT: Present: ATNC, hearing intact, vision intact Neck: Present: supple Respiratory: Present: wheezing Cardiology: Present: edema (+1 pitting BLE), normal S1, normal S2 Dialysis Vascular Access: Arteriovenous Fistula (LUE) thrill: Yes bruit: Yes Gastrointestinal: Present: normoactive bowel sounds, no tenderness Integumentary: Present: no rash, warm and dry Neurologic: Present: alert and oriented x3 Psychiatric: Present: mood/affect appropriate, cooperative - Lab 02/13/18 04:53 02/13/18 04:53 Most recent lab results Calcium 8.8 mg/dL (8.6-10.3) 02/13/18 04:53 Phosphorus 10.6 mg/dL (2.7-4.5) H 02/11/18 05:39 - VTE Documentation of Mechanical Device: Intermittent pneumatic compression device Consult Discharge Plan - Plan Additional Instructions: F/up with PCP in 1-2 weeks F/up with Cardiology as scheduled F/up with HD 3 times/week- MWF Referrals: NONE,PCP [Primary Care Provider] - (PLEASE CALL [phone] TO A PROVIDER IF YOU DO NOT HEAR FROM THEM BY Friday. THANK YOU!) Prescriptions: Metoprolol XL (24 HR) Succ [Toprol Xl] 25 mg PO DAILY #30 tab.er.24h <Roz Fisher - Last Filed: 02/23/18 08:49> Date of Encounter: 02/13/18 Objective - Lab 02/13/18 04:53 02/13/18 04:53 Most recent lab results Calcium 8.8 mg/dL (8.6-10.3) 02/13/18 04:53 Phosphorus 10.6 mg/dL (2.7-4.5) H 02/11/18 05:39 - Attending Attestation I examined this patient and my medical decision-making was reviewed with the Resident Physician/CUFF STITCHER. I agree with the documented findings, disposition and treatment plan as described except to the extent set forth below. Pt seen and examined on HD with no new complaints. Exam shows distended abdomen , [place] and LE edema. Continue HD with UF as tolerated. Plan for UF if still hospitalized tomorrow.
[2018-02-13 15:31] VITALS: BP 144/93
--- NOTE | 2018-02-13 16:32 | Discharge Summary ---
- NOTES TO OUTPATIENT PROVIDER Notes to Outpatient Provider: Volume overload, severe combined CHF, started on Metoprolol; needs Cardiology f/up; Orders not resulted at time of discharge: Pending orders 02/13/18 IR paracentesis ultrasound [IR] Routine Date of Encounter: 02/13/18 Time of Encounter: 16:29 - Discharge Diagnosis (1) Non-ischemic cardiomyopathy Priority: Secondary Status: Chronic (2) Obesity, morbid, BMI 40.0-49.9 Priority: Secondary Status: Chronic (3) Hypertension Priority: Secondary Status: Chronic Qualifiers: Hypertension type: essential hypertension Qualified Code(s): I10 - Essential (primary) hypertension (4) Cirrhosis of liver with ascites Priority: Secondary Status: Chronic Qualifiers: Hepatic cirrhosis type: unspecified hepatic cirrhosis Qualified Code(s): K74.60 - Unspecified cirrhosis of liver (5) ESRD (end stage renal disease) on dialysis Priority: Secondary Status: Chronic (6) Fluid overload Priority: Primary Status: Acute Qualifiers: Hypervolemia type: other Qualified Code(s): E87.79 - Other fluid overload (7) Cellulitis of left lower extremity Priority: Primary Status: Acute (8) Anxiety and depression Priority: Secondary Status: Chronic (9) Tobacco abuse Priority: Secondary Status: Chronic Hospital course: Mr. Snyder is a 32 year old male noncompliant patient with the above medical problems, who was admitted with left leg swelling. Patient was given empiric IV antibiotics for possible mild left leg cellulitis, which resolved at the time of discharge. Patient was noted to be in significant volume overload due to missed hemodialysis sessions. Nephrology was consulted and patient received at least 3 dialysis sessions in the hospital with improvement in respiratory status and blood pressure. He was noted to have chronic nonischemic cardiomyopathy, noncompliant with outpatient cardiology follow-up, not on any cardiac medications. Cardiology was consulted, beta ronaldo was started and he was encouraged to follow up with cardiology as outpatient as he may be a candidate for ICD placement due to EF less than 30%, after goal-directed medical therapy for at least 3 months. Compliance with medications, lifestyle modifications and hemodialysis was reinforced, patient verbalized understanding. He is otherwise medically stable for discharge with outpatient follow-up. Discharge discussed with: patient - Time Spent with Patient Total time spent providing and/or coordinating discharge services: Greater than 30 minutes (40 min) - Discharge Medications Prescriptions: Metoprolol XL (24 HR) Succ [Toprol Xl] 25 mg PO DAILY #30 tab.er.24h Home Medications: Aspirin [Lo-Dose Aspirin EC] 81 mg PO DAILY 04/25/17 [History] Sevelamer [Renvela] 1,600 mg PO TIDWM 04/25/17 [History] Cinacalcet HCl [Sensipar] 90 mg PO DAILY 12/08/17 [History] Metoprolol XL (24 HR) Succ [Toprol Xl] 25 mg PO DAILY #30 tab.er.24h 02/13/18 [ Rx] Allergies/Adverse Reactions: 3 Allergy/AdvReac Type Severity Reaction Status Date / Time No Known Allergies Allergy Verified 02/11/18 07:19 Date of admission: 02/11/18 09:50 Primary care physician: PCP NONE Consults: 02/11/18 10:45 Consult to Dialysis [CONS] ONCE 02/11/18 13:22 Consult to Cardiology [CONS] Routine Comment: Consulting Provider: Cardiology Amelia Reason for Consult: Knonw non ischemic cardiomyopathy..May need LIfe vest and Defib work up Call Completed: No 02/12/18 07:45 Consult to Dialysis [CONS] ONCE 02/12/18 12:03 Consult to Interventional Radiology [CONS] Routine Consulting Provider: Radiology Interventional Cols Reason for Consult: Paracentesis. Call Completed: Yes 02/13/18 08:00 Consult to Dialysis [CONS] ONCE Discharging clinician: Melania Rey Anticipated date of discharge: 02/13/18 - Constitutional Vitals: Temp Pulse Resp BP Pulse Ox 98.2 F 72 17 144/93 98 02/13/18 15:30 02/13/18 15:30 02/13/18 15:30 02/13/18 15:30 02/13/18 15:30 General appearance: Present: cooperative, A&O X 3, morbidly obese, answers questions appropriately - Cardiovascular Cardiovascular exam: Present: RRR, +S1, +S2. Absent: diastolic murmur, gallop, rubs, systolic murmur - Patient Status Disposition: Home, Self-Care Condition: Good Functional capacity at discharge: independent ambulation Overall status at discharge: patient is progressing back to baseline - Discharge Instructions Follow Up With: NONE,PCP [Primary Care Provider] - (PLEASE CALL [phone] TO A PROVIDER IF YOU DO NOT HEAR FROM THEM BY Friday. THANK YOU!) Additional Instructions: F/up with PCP in 1-2 weeks F/up with Cardiology as scheduled F/up with HD 3 times/week- MWF - Diet and Activity Activity: resume usual activities as tolerated Diet: low fat, low cholesterol, low salt diet - VTE Documentation of Mechanical Device: Intermittent pneumatic compression device
[2018-02-13] MEDS ORDERED: ceFAZolin 1,000 MG in 0.9 % Sodium Chloride Mini Bag 100 ML IVPB SCH (18:00)
== END 2018-02-13 17:44 | disposition home or self-care (01) | DRG 291 ==
LOC: 2ANU 03:56 → EMEROO 03:56 → SUATTDRO 09:50 → 2ANU 10:17
PROVIDERS: ADMIT Family Medicine; ATTEND Internal Medicine

== ENCOUNTER 2018-04-17 14:39 | Observation (INO) ==
[2018-04-17] MEDS ORDERED: Ondansetron 4 MG/2 ML VIAL IVP ONE (16:04)
[2018-04-17] MEDS ORDERED: *HR* FentaNYL (PF) 100 MCG/2 ML VIAL IVP ONE (16:04)
--- NOTE | 2018-04-17 16:19 | Emergency Department Note ---
Disposition Clinical Impression: ESRD (end stage renal disease) on dialysis, Right inguinal hernia Ascites Qualifiers: Ascites type: other type Qualified Code(s): R18.8 - Other ascites Disposition: Admitted As Inpatient Referrals: NONE,PCP [Primary Care Provider] - Time of Disposition: 18:23 Abdominal Pain HPI - General Chief Complaint: ED Abdominal Pain Stated Complaint: ascities Time Seen by Provider: 04/17/18 15:55 Source: patient Mode of arrival: ambulatory Limitations: no limitations Nursing Notes Reviewed: Yes Vital Signs Reviewed: Yes - History of Present Illness HPI Narrative: 32-year-old male with history of end-stage renal disease on dialysis with history of ascites arrives to the emergency department with "needed to get a paracentesis. The patient states that he has extensive history of needing paracentesis and last received one roughly 4-5 weeks ago. The patient states that he last received dialysis on Friday and missed dialysis one day ago. The patient denies any shortness of breath, chest pain, difficulty breathing, fevers , chills. The patient denies any true abdominal discomfort but he does have an umbilical hernia that he states is a little bit prominent than normal. Patient' s abdomen is very distended. He is usually drained by interventional radiology. The patient denies any other complaints at this time. He is resting comfortably in the room. No fevers noted on vital signs. Pain Scale: 4 - Related Data Home Medications Medication Instructions Recorded Confirmed Sevelamer [Renvela] 1,600 mg PO TIDWM 04/25/17 04/17/18 Ergocalciferol (VITAMIN D2) 50,000 unit PO QWEEK 04/17/18 04/17/18 [Vitamin D2] Previous Rx's Medication Instructions Recorded Metoprolol XL (24 HR) Succ [Toprol 25 mg PO DAILY #30 tab.er.24h 02/13/18 Xl] Allergies Allergy/AdvReac Type Severity Reaction Status Date / Time No Known Allergies Allergy Verified 02/11/18 07:19 All systems ED: reviewed and negative except as stated. Constitutional: Denies: fever, chills, weakness ENT ED: Denies: dysphagia Cardiovascular: Denies: chest pain Respiratory: Denies: dyspnea Gastrointestinal: Reports: abdominal pain. Denies: nausea, vomiting, diarrhea, constipation, hematemesis, melena, hematochezia Genitourinary: Denies: testicular pain, testicular mass Musculoskeletal: Denies: back pain, arthralgia, myalgia Integumentary: Denies: rash Neurological: Denies: headache Abdominal Pain PMH - Past Medical History Medical history: Reports: cardiomyopathy, CHF, dialysis, hyperlipidemia, hypertension, liver disease, renal disease, other Male Surgical History: Reports: orthopedic, other, other Psychiatric history: Reports: anxiety, depression - Social History Smoking status: Current every day smoker Alcohol use: Reports: none Drug use: Reports: none Physical Exam - General Limitations: no limitations General appearance: alert, in no apparent distress - Head Head exam: atraumatic, normocephalic, normal inspection - Eye Eye exam: Present: normal appearance, PERRL, EOMI - ENT ENT exam: normal exam, normal oropharynx, mucous membranes moist - Neck Neck exam: Present: normal inspection, full ROM, trachea midline - Chest Chest inspection: Present: normal inspection, symmetric chest wall rise - Respiratory Respiratory exam: Present: other (Coarse breath sounds bilaterally). Absent: respiratory distress - Cardiovascular Cardiovascular exam: Present: normal rhythm, tachycardia, normal heart sounds - Abdominal Exam Abdominal exam: Present: soft, distention, hernia (Umbilical), scar. Absent: tenderness, guarding, rebound, rigidity - Extremities Exam Extremities exam: Present: normal inspection, full ROM. Absent: tenderness, pedal edema - Neurological Exam Neurological exam: Present: alert, oriented X3, CN II-XII intact - Skin Skin exam: Present: warm, dry, intact, normal color Course - Reevaluation(s) Time: 18:00 Vital Signs Temperature 97.8 F 04/17/18 14:40 Pulse Rate 102 04/17/18 14:40 Respiratory Rate 20 04/17/18 14:40 Blood Pressure 190/136 04/17/18 14:40 O2 Sat by Pulse Oximetry 97 04/17/18 14:40 Temperature 97.8 F 04/17/18 16:18 Pulse Rate 87 04/17/18 17:55 Respiratory Rate 16 04/17/18 18:28 Blood Pressure 140/98 04/17/18 18:28 O2 Sat by Pulse Oximetry 98 04/17/18 17:55 Oxygen Delivery Oxygen Delivery Room Air Abdominal Pain - MDM Narrative Medical decision making narrative: Patient's workup in the emergency department demonstrates a potassium of 5.3. The patient's lab work is otherwise baseline for the patient. Patient CT scan does demonstrate some abdominal hernias that are slightly larger but demonstrate no entrapment at this time. The patient has no fevers and does not have increasing abdominal discomfort. We will not perform a paracentesis down here in the emergency department because the patient's findings are not consistent with SBP. The patient will be admitted to the hospital at this time for dialysis as well as nonemergent paracentesis. The patient was made aware and agrees to plan. The patient was accepted by Dr. Field. - Lab Data Lab results reviewed: Yes I reviewed the patient's lab results. Result diagrams: 04/17/18 16:10 04/17/18 16:10 Lab Results 04/17/18 04/17/18 Range/Units 16:10 16:10 WBC 9.2 (4.3-11.1) K/mcL RBC 4.21 (4.19-5.50) M/mcL Hgb 12.8 L (12.9-16.9) g/dL Hct 38.4 (37.5-50.1) % MCV 91.2 (83.0-100.0) fL MCH 30.4 (28.0-33.3) pg MCHC 33.3 (31.6-35.5) g/dL RDW 14.6 H (11.5-14.5) % Plt Count 168 (140-400) K/mcL MPV 9.9 (9.4-12.4) fL Immature Gran % 0.4 (0-4) % Seg Neutrophils % 75.1 % Lymphocytes % 13.2 % Monocytes % 6.8 % Eosinophils % 3.8 % Basophils % 0.7 % Neutrophils # 6.9 (1.6-8.9) K/mcL Lymphocytes # 1.2 (0.6-4.6) K/mcL Monocytes # 0.6 (0.0-1.3) K/mcL Eosinophils # 0.4 (0.0-0.6) K/mcL Basophils # 0.1 (0.0-0.2) K/mcL Sodium 135 L (136-145) mEq/L Potassium 5.3 H (3.5-5.1) mEq/L Chloride 100 (98-107) mEq/L Carbon Dioxide 20 L (23-29) mEq/L BUN 73 H (6-20) mg/dL Creatinine 13.01 H (0.70-1.30) mg/dL Est GFR ( Amer) 5 L (> 60) Est GFR (Non-Af Amer) 4 L (> 60) BUN/Creatinine Ratio 6 (6-26) Glucose 106 H (70-105) mg/dL Calculated Osmolality 302 H (280-300) Calcium 9.9 (8.6-10.3) mg/dL Total Bilirubin 0.5 (0.3-1.0) mg/dL Direct Bilirubin 0.1 (0.0-0.2) mg/dL Indirect Bilirubin 0.4 (0.0-1.2) mg/dL AST 6 L (13-39) Units/L ALT 3 L (7-52) Units/L Alkaline Phosphatase 176 H (34-104) Units/L Serum Total Protein 6.7 (6.4-8.9) g/dL Albumin 3.6 (3.5-5.7) g/dL Globulin 3.1 (2.4-3.5) g/dL Albumin/Globulin Ratio 1.2 (1.1-2.2) - Radiology Data Radiology results reviewed: Yes I reviewed the patient's radiology results. Abdomen/Pelvis CT 04/17/18 16:04 IMPRESSION: 1. Hepatosplenomegaly with suspected cirrhosis, unchanged. No liver lesion seen although lack of interest contrast limits evaluation. 2. Moderate to large volume ascites is unchanged from prior CT. Anasarca. 3. Large right inguinal hernia containing fat and fluid has enlarged. Small to moderate fluid containing umbilical hernia has enlarged. D/ / Basil Gillette MD / Basil Gillette MD Interpreting Provider: Basil Gillette MD Attestation Statement - Attestation Attestation: I, Jermaine Yates, examined this patient and my medical decision-making was reviewed with the RIPSHEAR OPERATOR/PA/Advanced Practice Nurse/Resident Physician. I agree with the documented findings, disposition and treatment plan as described except to the extent set forth below. 32-year-old male presents emergency Department with concerns of abdominal pain. Patient states he has a history of ascites in his abdomen is very distended similar to when and has been in the past. Patient also missed some of his dialysis sessions. Patient does report some mild increased shortness of breath. Vital signs stable in emergency department. Patient will be admitted for further care and evaluation.
[2018-04-17 16:22] LABS: Basophils # 0.1 K/mcL (0.0-0.2); Basophils % 0.7 %; Eosinophils # 0.4 K/mcL (0.0-0.6); Eosinophils % 3.8 %; Hematocrit 38.4 % (37.5-50.1); Hemoglobin 12.8 g/dL (12.9-16.9); Immature Granulocytes % 0.4 % (0-4); Lymphocytes # 1.2 K/mcL (0.6-4.6); Lymphocytes % 13.2 %; Mean Corpuscular HGB Conc 33.3 g/dL (31.6-35.5); Mean Corpuscular Hemoglobin 30.4 pg (28.0-33.3); Mean Corpuscular Volume 91.2 fL (83.0-100.0); Mean Platelet Volume 9.9 fL (9.4-12.4); Monocytes # 0.6 K/mcL (0.0-1.3); Monocytes % 6.8 %; Neutrophils # 6.9 K/mcL (1.6-8.9); Platelet Count 168 K/mcL (140-400); Red Blood Count 4.21 M/mcL (4.19-5.50); Red Cell Distribution Width 14.6 % (11.5-14.5); Segmented Neutrophils % 75.1 %
[2018-04-17 16:43] LABS: Calcium 9.9 mg/dL (8.6-10.3); Potassium 5.3 mEq/L (3.5-5.1)
[2018-04-17 17:50] LABS: Albumin 3.6 g/dL (3.5-5.7); Albumin/Globulin Ratio 1.2 (1.1-2.2); Bilirubin,Direct 0.1 mg/dL (0.0-0.2); Bilirubin,Indirect 0.4 mg/dL (0.0-1.2); Bilirubin,Total 0.5 mg/dL (0.3-1.0); Globulin 3.1 g/dL (2.4-3.5); Total Protein 6.7 g/dL (6.4-8.9)
[2018-04-17] MEDS: *HR* HYDROcodone/Acet 5/325 mg TABLET PO PRN (23:13)
[2018-04-17] MEDS ORDERED: Naloxone 0.4 MG/ML INJ IVP PRN (23:17)
--- NOTE | 2018-04-18 05:43 | Internal Med History&Physical ---
Date of Encounter: 04/17/18 Time of Encounter: 23:00 Internal Medicine - H&P: HPI Chief complaint: Abdominal pain Admitted From: Home Plans for Post Hospital Care: Home History of present illness: Mr. Snyder is a 32 year old male. The patient has had end-stage renal disease; gets hemodialysis on Tuesdays, and Saturdays. He did not get yesterday hemodialysis for some family matters. He has had liver cirrhosis with recurrent ascites. He gets paracentesis every month; the next one is scheduled in a few days. He comes are concerned of increased abdominal pain due to increased amount of ascites. He is also concerned of increased size pranav-umbilical hernia. Denies any nausea and vomiting. He has normal bowel movements. He denies urinary symptoms. Review of systems: All 14 organ systems were reviewed by me with the patient. Positive and pertinent negative findings are listed above. The rest of organ systems is negative. Physical Exam: Skin: Free of rash and discoloration. Eyes: Sclera is white. There is no discharge from eyes. ENMT: Oral/pharyngeal mucosa is normal in appearance. There is no discharge from nose or ears. Respiratory: Normal breath sounds with no crackles and wheezes bilaterally. CV: Heart is regular with no gallop or murmur. GI: His abdomen shows moderate abdominal distention. The abdominal wall seems to be only mildly stretched. He does have relatively small size periumbilical hernia. It is reducible. : There is no tenderness in patient's flanks bilaterally. Neuro exam: There is good strength in upper and lower extremities. The patient has normal eye movements. Psychiatric: The patient has normal affect. His thought process is appropriate to the situation. A/P: Large amounts of her ascites. The patient has underlying liver cirrhosis. Will consult interventional radiology for ultrasound-guided paracentesis. His umbilical hernia has to stay. It will decrease in size after paracentesis. End-stage renal disease, on hemodialysis. Nephrology is consulted. They will give him hemodialysis tomorrow. Hypertension. Under control. We will continue Toprol-XL. Past Med Surg Social Fam HX - Past Medical History Medical history: cardiomyopathy, CHF, dialysis, hyperlipidemia, hypertension, liver disease, renal disease, other Additional medical history: L shunt Psychiatric history: anxiety, depression - Past Surgical History Surgical History: orthopedic, other, vascular surgery, other Additional surgical history: right hip, pins and plates. Bladder surgery. multiple paracentesis, sp catheter - Social History Smoking Status: Current every day smoker Smokeless Tobacco Status: No Alcohol use: none Drug use: none - Family History Mother Adopted: No Living Status: Still Living Hx Family Cardiac Disorders: Yes (Stroke) Hx Family Respiratory Disorders: No Hx Family Cancer: No Hx Family GI Disorders: No Hx Family Endocrine Disorder: Yes (DM) Hx Family Neuromuscular Disorders: No Hx Family Neurologic Disorders: No Hx Family HEENT Disorders: No Hx Family Autoimmune Disorders: No Father Living Status: Hx Family Cardiac Disorders: Yes (CAD) Hx Family Respiratory Disorders: No Hx Family Cancer: No Hx Family GI Disorders: No Hx Family Endocrine Disorder: Yes (Diabetes) Hx Family Neuromuscular Disorders: No Hx Family Neurologic Disorders: No Hx Family HEENT Disorders: No Hx Family Autoimmune Disorders: No Internal Medicine - H&P: Meds Sevelamer [Renvela] 1,600 mg PO TIDWM 04/25/17 [History] Metoprolol XL (24 HR) Succ [Toprol Xl] 25 mg PO DAILY #30 tab.er.24h 02/13/18 [ Rx] Ergocalciferol (VITAMIN D2) [Vitamin D2] 50,000 unit PO QWEEK 04/17/18 [History] 3 Allergy/AdvReac Type Severity Reaction Status Date / Time No Known Allergies Allergy Verified 02/11/18 07:19 - Constitutional Vitals: Temp Pulse Resp BP Pulse Ox 97.8 F 83 18 161/105 97 04/18/18 04:05 04/18/18 04:05 04/18/18 04:05 04/18/18 04:05 04/18/18 04:05 Internal Med - H&P Results - Labs CBC & Chem 7: 04/17/18 16:10 04/18/18 05:53 - Assessment and plan (1) Ascites Current Visit: Yes Status: Acute Qualifiers: Ascites type: other type Qualified Code(s): R18.8 - Other ascites (2) Cirrhosis of liver with ascites Current Visit: No Status: Chronic Qualifiers: Hepatic cirrhosis type: unspecified hepatic cirrhosis Qualified Code(s): K74.60 - Unspecified cirrhosis of liver (3) ESRD (end stage renal disease) on dialysis Current Visit: No Status: Chronic (4) Umbilical hernia without obstruction or gangrene Current Visit: Yes Status: Chronic - Time Spent With Patient Total time spent is greater than 50% in coordination of care (as documented) at patient's floor/unit and/or counseling patient: Greater than 35 minutes (40 minutes)
[2018-04-18 06:56] LABS: Calcium 9.5 mg/dL (8.6-10.3); Magnesium 2.4 mg/dL (1.6-2.6); Potassium 5.6 mEq/L (3.5-5.1)
[2018-04-18] MEDS ORDERED: 0.9 % Sodium Chloride 250 ML IVC PRN (07:31)
[2018-04-18] MEDS ORDERED: 0.9 % Sodium Chloride 1,000 ML ONE (07:35)
[2018-04-18] MEDS ORDERED: 0.9 % Sodium Chloride 1,000 ML PRIME SCH (07:45)
[2018-04-18] MEDS: *HR* HYDROcodone/Acet 5/325 mg TABLET PO PRN (08:01)
[2018-04-18] MEDS ORDERED: Metoprolol XL (24 HR) Succ 25 MG TAB.ER.24H PO SCH (09:00)
--- NOTE | 2018-04-18 11:43 | Discharge Summary ---
- NOTES TO OUTPATIENT PROVIDER Notes to Outpatient Provider: Follow-up with interventional radiology for routine past sentences. Follow-up with primary care physician and hand miter operator. Orders not resulted at time of discharge: Pending orders 04/17/18 23:22 IR paracentesis ultrasound [IR] Routine Date of Encounter: 04/18/18 Time of Encounter: 11:43 - Discharge Diagnosis (1) Ascites Priority: Secondary Status: Chronic Qualifiers: Ascites type: other type Qualified Code(s): R18.8 - Other ascites (2) ESRD (end stage renal disease) on dialysis Priority: Secondary Status: Chronic (3) Chronic pain of both lower extremities Priority: Secondary Status: Chronic (4) DVT prophylaxis Priority: Primary Status: Acute (5) CHF (congestive heart failure) Priority: Secondary Status: Chronic Qualifiers: Qualified Code(s): I50.23 - Acute on chronic systolic (congestive) heart failure (6) Cirrhosis of liver with ascites Priority: Secondary Status: Chronic Qualifiers: Hepatic cirrhosis type: unspecified hepatic cirrhosis Qualified Code(s): K74.60 - Unspecified cirrhosis of liver Hospital course: Mr. Snyder is a 32 year old male with past medical history of non ischemic cardiomyopathy with LVEF 30%, combined heart failure, HTN, ESRD, noncompliance patient and decompensated liver cirrhosis presented to the emergency department with "needed to get a paracentesis and missing dialysis due to family matters. The patient states that he has extensive history of needing paracentesis and last received one roughly 4-5 weeks ago. The patient states that he last received dialysis on Friday and missed dialysis one day ago. The patient denies any shortness of breath, chest pain, difficulty breathing, fevers, chills. The patient denies any true abdominal discomfort but he does have an umbilical hernia that he states is a little bit prominent than normal. He is having normal BM he is seen during HD in no form of distress, he is able to make appointments with IR to have his ascites drained, there is no emergent indication to drain his ascites in-patient, radiologist has to be called in to do his drainage and there is no urgent indication for that. He may be discharged home after HD Encouraged on compliance Tobacco cessation counselling done Discharge discussed with: patient, nurse Time spent discussing smoking cessation with patient: 3 to 10 minutes - Time Spent with Patient Total time spent providing and/or coordinating discharge services: Less than 30 minutes - Discharge Medications Home Medications: Sevelamer [Renvela] 1,600 mg PO TIDWM 04/25/17 [History] Metoprolol XL (24 HR) Succ [Toprol Xl] 25 mg PO DAILY #30 tab.er.24h 02/13/18 [ Rx] Ergocalciferol (VITAMIN D2) [Vitamin D2] 50,000 unit PO QWEEK 04/17/18 [History] Allergies/Adverse Reactions: 3 Allergy/AdvReac Type Severity Reaction Status Date / Time No Known Allergies Allergy Verified 02/11/18 07:19 Date of admission: 04/17/18 18:19 Primary care physician: PCP NONE Consults: 04/18/18 07:45 Consult to Dialysis [CONS] ONCE Discharging clinician: Genaro Stephens Anticipated date of discharge: 04/18/18 - Constitutional Vitals: Temp Pulse Resp BP Pulse Ox 98.3 F 82 19 147/95 98 04/18/18 07:35 04/18/18 07:35 04/18/18 07:35 04/18/18 07:35 04/18/18 07:35 - Head Head exam: Present: atraumatic, normocephalic - Eye Eye exam: Present: PERRL, conjuntiva pink, sclera anicteric Pupils: Present: PERRL - Neck Neck exam general surgery: Present: supple, trachea midline. Absent: lymphadenopathy - Respiratory Respiratory exam: Present: CTAB. Absent: accessory muscle use, rales, rhonchi, wheezes - Cardiovascular Cardiovascular exam: Present: RRR, +S1, +S2. Absent: diastolic murmur, gallop, rubs, systolic murmur - GI/Abdominal GI/Abdominal exam: Present: normal bowel sounds, soft, no peritoneal signs. Absent: distended, tenderness Additional comments: ascites. not tense, not tender - Extremities Exam Extremities exam: Present: warm, radial pulses palpable and symmetrical. Absent : calf tenderness, cyanotic, pedal edema - Neurological Exam Neurological exam: Present: CN II-XII intact, oriented X3, no focal deficits. Absent: pronater drift, facial droop, speech deficit - Skin Skin exam: Present: dry, intact - Patient Status Disposition: Home, Self-Care Condition: Good Functional capacity at discharge: independent ambulation Overall status at discharge: patient is progressing back to baseline - Discharge Instructions Follow Up With: NONE,PCP [Primary Care Provider] - - Diet and Activity Activity: resume usual activities as tolerated Diet: low salt diet, other (renal diet)
[2018-04-18 14:46] VITALS: BP 150/99
--- NOTE | 2018-04-18 15:13 | Nephrology Consult Note ---
Date of Encounter: 04/18/18 Time of Encounter: 11:05 Assessment and Plan (1) ESRD (end stage renal disease) on dialysis Status: Chronic HD TRS. Renal vitamins. Renal dose medications. Renal diet. Additional dialysis and ultrafiltration as needed. Patient was seen on dialysis today. Okay for discharge after dialysis. (2) Dialysis patient, noncompliant Status: Chronic History of Present Illness - Reason for Consult Consult date: 04/18/18 end stage renal disease - Chief Complaint ESRD - History of Present Illness Mr. Snyder is a 32-year-old gentleman with end-stage renal disease well-known to the nephrology service. He was in with mild dyspnea and volume overload after missing his dialysis session. The patient was seen while he was on dialysis and denied chest pain and dated he had mild dyspnea that was improving while on dialysis. He also complained of some abdominal distention. Past Med Surg Social Fam HX - Past Medical History Medical history: cardiomyopathy, CHF, dialysis, hyperlipidemia, hypertension, liver disease, renal disease, other Additional medical history: L shunt Psychiatric history: anxiety, depression - Past Surgical History Surgical History: orthopedic, other, vascular surgery, other Additional surgical history: right hip, pins and plates. Bladder surgery. multiple paracentesis, sp catheter - Social History Smoking Status: Current every day smoker Smokeless Tobacco Status: No Alcohol use: none Drug use: none - Family History Mother Adopted: No Living Status: Still Living Hx Family Cardiac Disorders: Yes (Stroke) Hx Family Respiratory Disorders: No Hx Family Cancer: No Hx Family GI Disorders: No Hx Family Endocrine Disorder: Yes (DM) Hx Family Neuromuscular Disorders: No Hx Family Neurologic Disorders: No Hx Family HEENT Disorders: No Hx Family Autoimmune Disorders: No Father Living Status: Hx Family Cardiac Disorders: Yes (CAD) Hx Family Respiratory Disorders: No Hx Family Cancer: No Hx Family GI Disorders: No Hx Family Endocrine Disorder: Yes (Diabetes) Hx Family Neuromuscular Disorders: No Hx Family Neurologic Disorders: No Hx Family HEENT Disorders: No Hx Family Autoimmune Disorders: No Medications and Allergies Sevelamer [Renvela] 1,600 mg PO TIDWM 04/25/17 [History] Metoprolol XL (24 HR) Succ [Toprol Xl] 25 mg PO DAILY #30 tab.er.24h 02/13/18 [ Rx] Ergocalciferol (VITAMIN D2) [Vitamin D2] 50,000 unit PO QWEEK 04/17/18 [History] 3 Allergy/AdvReac Type Severity Reaction Status Date / Time No Known Allergies Allergy Verified 02/11/18 07:19 Review of Systems All Systems: reviewed and no additional remarkable complaints except as stated ( As documented per history of present illness) Exam - Vital Signs Vital signs: Initial Vital Signs Temp Pulse Resp BP Pulse Ox 97.8 F 102 20 190/136 97 04/17/18 14:40 04/17/18 14:40 04/17/18 14:40 04/17/18 14:40 04/17/18 14:40 Vital Signs - Last 8 Hours Temp Pulse Resp BP Pulse Ox 04/18/18 14:46 101 150/99 04/18/18 13:55 97.7 F 17 163/92 04/18/18 13:45 169/86 04/18/18 13:30 144/68 04/18/18 13:15 172/105 04/18/18 13:00 171/100 04/18/18 12:45 159/101 04/18/18 12:30 164/100 04/18/18 12:15 153/99 04/18/18 12:00 165/97 04/18/18 11:45 173/94 04/18/18 11:30 152/83 04/18/18 11:15 162/91 04/18/18 11:00 158/78 04/18/18 10:45 174/96 04/18/18 10:30 177/104 04/18/18 10:15 174/97 04/18/18 10:00 177/98 04/18/18 09:45 97.7 F 19 176/101 04/18/18 07:35 98.3 F 82 19 147/95 98 Intake and Output 04/17/18 04/18/18 04/18/18 23:59 07:59 15:59 Intake Total 240 / 240 1320 / 1320 Output Total 7600 / 7600 Balance 240 / 240 -6280 / -6280 Intake: Oral 240 / 240 720 / 720 Intake, Rinseback and Flushes 600 / 600 Output: Urine 0 / 0 Total Dialysis (HD) Output 7600 / 7600 Other: Meal gold fish pudding juan crackers 2 chocolate ice cream cups Breakfast Percent of Meal Consumed 100% 100% 100% Weight 150.8 kg Hemodialysis Net Fluid Removed 7000 (mL) - General Appearance General appearance: well-developed, well-nourished, obese EENT: ATNC Neck: supple Respiratory: course breath sounds Cardiology: edema, regular rate Gastrointestinal: obese Integumentary: warm and dry Neurologic: alert and oriented x3 Psychiatric: mood/affect appropriate Results - Lab Results 04/17/18 16:10 04/18/18 05:53 Most recent lab results Calcium 9.5 mg/dL (8.6-10.3) 04/18/18 05:53 Magnesium 2.4 mg/dL (1.6-2.6) 04/18/18 05:53 Consult Discharge Plan - Plan Referrals: NONE,PCP [Primary Care Provider] -
== END 2018-04-18 14:55 | disposition home or self-care (01) ==
LOC: 2ANU 14:39 → EMEROO 14:39 → 2ANU 19:04
PROVIDERS: ADMIT Internal Medicine; ATTEND Internal Medicine

== ENCOUNTER 2018-05-21 15:47 | Observation (INO) ==
--- NOTE | 2018-05-21 15:58 | Emergency Department Note ---
Disposition Clinical Impression: Ascites Qualifiers: Ascites type: other type Qualified Code(s): R18.8 - Other ascites Fluid overload Qualifiers: Hypervolemia type: unspecified Qualified Code(s): E87.70 - Fluid overload, unspecified Disposition: Admitted As Inpatient Condition: Good Referrals: NONE,PCP [Primary Care Provider] - Time of Disposition: 17:35 General Adult HPI - General Stated complaint: CHANDLER Time Seen by Provider: 05/21/18 15:55 Source: patient Mode of arrival: EMS Limitations: no limitations - History of Present Illness HPI Narrative: This is a 32-year-old male with significant past medical history including cardiomyopathy, heart failure, and unspecified liver disease, with multiple episodes of paracentesis, brought in by EMS from dialysis after completing dialysis treatment reporting increased swelling in his abdomen that has caused orthopnea starting about 18-20 hours prior to arrival. He states his last paracentesis was 2 or 3 weeks ago. He feels fine when he is seated upright. No chest pain. - Related Data Home Medications Medication Instructions Recorded Confirmed Sevelamer [Renvela] 1,600 mg PO TIDWM 04/25/17 04/17/18 Ergocalciferol (VITAMIN D2) 50,000 unit PO QWEEK 04/17/18 04/17/18 [Vitamin D2] Previous Rx's Medication Instructions Recorded Metoprolol XL (24 HR) Succ [Toprol 25 mg PO DAILY #30 tab.er.24h 02/13/18 Xl] Allergies Allergy/AdvReac Type Severity Reaction Status Date / Time No Known Allergies Allergy Verified 02/11/18 07:19 All systems ED: reviewed and negative except as stated. Respiratory: Reports: other (Orthopnea) Past Medical History - Past Medical History Medical history: Reports: cardiomyopathy, CHF, dialysis, hyperlipidemia, hypertension, liver disease, renal disease, other Surgical history: Reports: orthopedic, other, vascular surgery, other Psychiatric history: Reports: anxiety, depression - Social History Smoking Status: Current every day smoker Smokeless Tobacco Status: No Alcohol use: Reports: none Drug use: Reports: none Physical Exam - General Limitations: no limitations General appearance: alert, in no apparent distress - Head Head exam: atraumatic, normocephalic, normal inspection - Eye Eye exam: Present: normal appearance, PERRL, EOMI - Chest Chest inspection: Present: normal inspection, symmetric chest wall rise - Respiratory Respiratory exam: Present: normal lung sounds bilaterally. Absent: respiratory distress, wheezes, stridor, accessory muscle use - Cardiovascular Cardiovascular exam: Present: regular rate, normal rhythm, normal heart sounds - Abdominal Exam Abdominal exam: Present: soft (Abdomen soft, but mildly distended and appears ascitic, with a fluid wave), Non-Tender - Extremities Exam Extremities exam: Present: normal inspection, pedal edema (There is trace pedal edema, but skin of the extremities is firm). Absent: tenderness - Neurological Exam Neurological exam: Present: alert, oriented X3 - Psychiatric Psychiatric exam: Present: normal affect, normal mood - Skin Skin exam: Present: warm, dry, intact, normal color Course Course Narrative: This is a 32-year-old male with orthopnea most likely associated with ascites. Vital Signs Temperature 98.1 F 05/21/18 15:51 Pulse Rate 92 05/21/18 15:51 Respiratory Rate 16 05/21/18 15:51 Blood Pressure 161/116 05/21/18 15:51 O2 Sat by Pulse Oximetry 100 05/21/18 15:51 Temperature 98.1 F 05/21/18 15:51 Pulse Rate 92 05/21/18 15:51 Respiratory Rate 16 05/21/18 15:51 Blood Pressure 161/116 05/21/18 15:51 O2 Sat by Pulse Oximetry 100 05/21/18 15:51 Medical Decision Making - [facility] Narrative Medical decision making narrative: This is a 32-year-old male with ascites causing shortness of breath and orthopnea. I discussed this case with the on-call hospitalist, who accepted him for admission. - Lab Data Lab results reviewed: Yes I reviewed the patient's lab results. Lab results narrative: CBC shows anemia at 11.9 and 37.2 BMP shows elevated BUNs and elevated creatinine at 6.9 to Result diagrams: 05/21/18 16:13 05/21/18 16:13 Lab Results 05/21/18 05/21/18 Range/Units 16:13 16:13 WBC 6.4 (4.3-11.1) K/mcL RBC 4.02 L (4.19-5.50) M/mcL Hgb 11.9 L (12.9-16.9) g/dL Hct 37.2 L (37.5-50.1) % MCV 92.5 (83.0-100.0) fL MCH 29.6 (28.0-33.3) pg MCHC 32.0 (31.6-35.5) g/dL RDW 15.0 H (11.5-14.5) % Plt Count 146 (140-400) K/mcL MPV 10.0 (9.4-12.4) fL Immature Gran % 0.2 (0-4) % Seg Neutrophils % 68.2 % Lymphocytes % 16.4 % Monocytes % 9.7 % Eosinophils % 4.6 % Basophils % 0.9 % Neutrophils # 4.3 (1.6-8.9) K/mcL Lymphocytes # 1.0 (0.6-4.6) K/mcL Monocytes # 0.6 (0.0-1.3) K/mcL Eosinophils # 0.3 (0.0-0.6) K/mcL Basophils # 0.1 (0.0-0.2) K/mcL Sodium 136 (136-145) mEq/L Potassium 3.8 (3.5-5.1) mEq/L Chloride 98 (98-107) mEq/L Carbon Dioxide 28 (23-29) mEq/L BUN 28 H (6-20) mg/dL Creatinine 6.92 H (0.70-1.30) mg/dL Est GFR ( Amer) 11 L (> 60) Est GFR (Non-Af Amer) 9 L (> 60) BUN/Creatinine Ratio 4 L (6-26) Glucose 97 (70-105) mg/dL Calculated Osmolality 287 (280-300) Calcium 9.7 (8.6-10.3) mg/dL - Radiology Data Radiology results reviewed: Yes I reviewed the patient's radiology results. Chest x-ray showed mild pulmonary edema - EKG Data EKG #1 EKG attestation: Yes I reviewed and interpreted this EKG. EKG results narrative: ECG shows sinus rhythm, 92 bpm, normal intervals, normal axis, T-wave inversions in the 1 and V6, no other ST abnormalities Critical Care Time Critical Care Time: No
[2018-05-21] MEDS ORDERED: *HR* FentaNYL (PF) 100 MCG/2 ML VIAL IVP ONE (16:15)
[2018-05-21 16:41] LABS: Basophils # 0.1 K/mcL (0.0-0.2); Basophils % 0.9 %; Eosinophils # 0.3 K/mcL (0.0-0.6); Eosinophils % 4.6 %; Hematocrit 37.2 % (37.5-50.1); Hemoglobin 11.9 g/dL (12.9-16.9); Immature Granulocytes % 0.2 % (0-4); Lymphocytes % 16.4 %; Mean Corpuscular Hemoglobin 29.6 pg (28.0-33.3); Mean Corpuscular Volume 92.5 fL (83.0-100.0); Monocytes # 0.6 K/mcL (0.0-1.3); Monocytes % 9.7 %; Neutrophils # 4.3 K/mcL (1.6-8.9); Platelet Count 146 K/mcL (140-400); Red Blood Count 4.02 M/mcL (4.19-5.50); Segmented Neutrophils % 68.2 %
[2018-05-21 16:50] LABS: Calcium 9.7 mg/dL (8.6-10.3); Potassium 3.8 mEq/L (3.5-5.1)
[2018-05-21] MEDS ORDERED: Naloxone 0.4 MG/ML INJ IVP PRN (18:06)
--- NOTE | 2018-05-21 18:23 | Internal Med History&Physical ---
Date of Encounter: 05/21/18 Time of Encounter: 17:30 Internal Medicine - H&P: HPI Chief complaint: Ascites Admitted From: Home Plans for Post Hospital Care: Home History of present illness: Mr. Snyder is a 32 year old male with past medical history significant for liver disease with ascites, end-stage renal disease on dialysis, congestive heart failure, hypertension, and cardiomyopathy who presents today from dialysis for worsening ascites and orthopnea over the past day. No shortness of breath when sitting upright. Orthopnea is typical for him whenever paracentesis is needed. No other exacerbating or alleviating factors. Denies chest pain, abdominal pain, nausea, diarrhea, fever, or chills. Last paracentesis 2-3 weeks ago, scheduled every 6 weeks but sometimes needs performed intermittently between appointments. Receives dialysis Friday, , Friday. Produces trace amounts of urine and has suprapubic catheter in place. Patient discussed with Dr Stephens. Past Med Surg Social Fam HX - Past Medical History Medical history: cardiomyopathy, CHF, dialysis, hyperlipidemia, hypertension, liver disease, renal disease, other Additional medical history: L shunt Psychiatric history: anxiety, depression - Past Surgical History Surgical History: orthopedic, other, vascular surgery, other Additional surgical history: right hip, pins and plates. Bladder surgery. multiple paracentesis, sp catheter - Social History Smoking Status: Current every day smoker Smokeless Tobacco Status: No Alcohol use: none Drug use: none - Family History Mother Adopted: No Living Status: Still Living Hx Family Cardiac Disorders: Yes (Stroke) Hx Family Respiratory Disorders: No Hx Family Cancer: No Hx Family GI Disorders: No Hx Family Endocrine Disorder: Yes (DM) Hx Family Neuromuscular Disorders: No Hx Family Neurologic Disorders: No Hx Family HEENT Disorders: No Hx Family Autoimmune Disorders: No Father Living Status: Hx Family Cardiac Disorders: Yes (CAD) Hx Family Respiratory Disorders: No Hx Family Cancer: No Hx Family GI Disorders: No Hx Family Endocrine Disorder: Yes (Diabetes) Hx Family Neuromuscular Disorders: No Hx Family Neurologic Disorders: No Hx Family HEENT Disorders: No Hx Family Autoimmune Disorders: No Internal Medicine - H&P: Meds Sevelamer [Renvela] 1,600 mg PO TIDWM 04/25/17 [History] Metoprolol XL (24 HR) Succ [Toprol Xl] 25 mg PO DAILY #30 tab.er.24h 02/13/18 [ Rx] Ergocalciferol (VITAMIN D2) [Vitamin D2] 50,000 unit PO QWEEK 04/17/18 [History] Folic Acid/Vit B Complex and C [Dialyvite Tablet] 1 tab PO DAILY 05/21/18 [ History] 3 Allergy/AdvReac Type Severity Reaction Status Date / Time No Known Allergies Allergy Verified 02/11/18 07:19 All Systems PM: A 10-system review of systems was performed and is negative for pertinent findings except as documented above in the HPI. - Constitutional Vitals: Temp Pulse Resp BP Pulse Ox 98.1 F 92 16 161/116 100 05/21/18 15:51 05/21/18 15:51 05/21/18 15:51 05/21/18 15:51 05/21/18 15:51 Exam: General: Alert and oriented. Skin:Normal color, no rash, no lesions. HEENT:EOM, pupils equal, round and reactive. Cardiovascular:Normal S1 & S2, no rubs, murmurs or gallops. No JVD. Pulse regular. Lungs:Normal breath sounds, no wheezes or crackles. Abdomen:Round, distended, non-tender, no rigidity. Extremities:No deformity, tenderness, or clubbing. 1+ pitting edema noted to bilateral lower extremities. Genitourinary:Suprapubic catheter in place. Insertion site area skin dry and intact. Neurological:Normal cognition and motor skills. Pulses:Carotid and radial pulses normal +2. Rest of the physical exam is non contributory. Internal Med - H&P Results - Labs CBC & Chem 7: 05/21/18 16:13 05/21/18 16:13 Labs: Short CBC 05/21/18 Range/Units 16:13 WBC 6.4 (4.3-11.1) K/mcL Hgb 11.9 L (12.9-16.9) g/dL Hct 37.2 L (37.5-50.1) % Plt Count 146 (140-400) K/mcL Neutrophils # 4.3 (1.6-8.9) K/mcL BMP 05/21/18 16:13 Sodium 136 Potassium 3.8 Chloride 98 Carbon Dioxide 28 BUN 28 H Creatinine 6.92 H Glucose 97 Calcium 9.7 - Impressions ITS Impressions Chest X-Ray 05/21/18 15:55 IMPRESSION: Borderline enlarged heart size with no acute pulmonary process. D/ / 05/21/2018 17:22:13 Vinay Acevedo MD / mindy Interpreting Provider: Vinay Acevedo MD - Assessment and plan (1) Ascites Current Visit: Yes Status: Chronic Assessment and plan: IR consulted for paracentesis. Qualifiers: Ascites type: other type Qualified Code(s): R18.8 - Other ascites (2) Renal failure Current Visit: No Status: Chronic Assessment and plan: Dialysis Tuesdays, , Saturdays. Nephrology consulted for dialysis if still in hospital Friday. Repeat labs in a.m. Qualifiers: Renal failure chronicity: chronic Chronic kidney disease stage: on chronic dialysis Qualified Code(s): N18.6 - End stage renal disease; Z99.2 - Dependence on renal dialysis (3) Orthopnea Current Visit: Yes Status: Chronic Assessment and plan: 2lpm oxygen by nasal canula to maintain oxygen saturations greater than 92%. (4) Decreased hemoglobin Current Visit: Yes Status: Chronic Assessment and plan: Repeat labs in a.m. (5) Hypertension Current Visit: Yes Status: Chronic Assessment and plan: Continue home medications. Qualifiers: Hypertension type: unspecified Qualified Code(s): I10 - Essential (primary ) hypertension - Time Spent With Patient Total time spent is greater than 50% in coordination of care (as documented) at patient's floor/unit and/or counseling patient: - VTE Reasons for not Prescribing Prophylaxis: Treatment not Indicated - Low risk for VTE
[2018-05-22] MEDS: OXYCODONE Oral CONC 10 MG/0.5 ML ORAL.SYG SL PRN ×4 (03:24→23:54)
[2018-05-22 06:08] LABS: Basophils # 0.1 K/mcL (0.0-0.2); Basophils % 0.8 %; Eosinophils # 0.4 K/mcL (0.0-0.6); Eosinophils % 4.6 %; Hematocrit 39.9 % (37.5-50.1); Hemoglobin 12.6 g/dL (12.9-16.9); Immature Granulocytes % 0.3 % (0-4); Lymphocytes # 1.3 K/mcL (0.6-4.6); Lymphocytes % 16.3 %; Mean Corpuscular HGB Conc 31.6 g/dL (31.6-35.5); Mean Corpuscular Hemoglobin 29.5 pg (28.0-33.3); Mean Corpuscular Volume 93.4 fL (83.0-100.0); Mean Platelet Volume 10.5 fL (9.4-12.4); Monocytes # 0.8 K/mcL (0.0-1.3); Monocytes % 10.7 %; Neutrophils # 5.3 K/mcL (1.6-8.9); Platelet Count 165 K/mcL (140-400); Red Blood Count 4.27 M/mcL (4.19-5.50); Red Cell Distribution Width 15.1 % (11.5-14.5); Segmented Neutrophils % 67.3 %
[2018-05-22 07:05] LABS: Calcium 8.9 mg/dL (8.6-10.3)
--- NOTE | 2018-05-22 10:04 | Nephrology Consult Note ---
<Reena Miller - Last Filed: 05/22/18 09:57> Date of Encounter: 05/22/18 Time of Encounter: 09:57 Assessment and Plan (1) Ascites Status: Chronic Plan for paracentesis today (per patient). Qualifiers: Ascites type: other type Qualified Code(s): R18.8 - Other ascites (2) Fluid overload Status: Acute 1.5 Liter fluid restriction. Qualifiers: Hypervolemia type: unspecified Qualified Code(s): E87.70 - Fluid overload, unspecified (3) ESRD (end stage renal disease) on dialysis Status: Acute Current regimen is TTS at [facility]. Last tx was , he did miss the Friday treatment. Will plan for HD tomorrow. Strict I/O Avoid nephrotoxins and renal dose all medications. History of Present Illness - Reason for Consult Consult date: 05/22/18 end stage renal disease - Chief Complaint difficulty in breathing - History of Present Illness Mr. Snyder is a 32 year old male with past medical history significant for liver disease with ascites, end-stage renal disease on dialysis, congestive heart failure, hypertension, and cardiomyopathy. He presented to ED after HD on for worsening ascites and orthopnea. Current HD regimen is TTS at [facility]. His last treatment was without complication, but he did miss Tuesdays HD treatment. His last paracentesis was 2-3 weeks ago, and he has had several in the past year. Denies chest pain, abdominal pain, nausea , vomiting, or diarrhea. Admits to dyspnea and fatigue. He does have a suprapubic cath in place which is chronic, he does make a small amount of urine. He denies any changes in PMH or medications. He is often noncompliant with HD treatments. He has large fluid gains and drinks copious amoun of mountain dew. Past Med Surg Social Fam HX - Past Medical History Medical history: cardiomyopathy, CHF, dialysis, hyperlipidemia, hypertension, liver disease, renal disease, other Additional medical history: L shunt Psychiatric history: anxiety, depression - Past Surgical History Surgical History: orthopedic, other, vascular surgery, other Additional surgical history: right hip, pins and plates. Bladder surgery. multiple paracentesis, sp catheter - Social History Smoking Status: Current every day smoker Packs per day: 1/2 Smokeless Tobacco Status: No Alcohol use: none Drug use: none - Family History Mother History Unknown: Yes Adopted: No Living Status: Still Living Hx Family Cardiac Disorders: Yes (Stroke) Hx Family Respiratory Disorders: No Hx Family Cancer: No Hx Family GI Disorders: No Hx Family Endocrine Disorder: Yes (DM) Hx Family Neuromuscular Disorders: No Hx Family Neurologic Disorders: No Hx Family HEENT Disorders: No Hx Family Autoimmune Disorders: No Father History Unknown: Yes Living Status: Hx Family Cardiac Disorders: Yes (CAD) Hx Family Respiratory Disorders: No Hx Family Cancer: No Hx Family GI Disorders: No Hx Family Endocrine Disorder: Yes (Diabetes) Hx Family Neuromuscular Disorders: No Hx Family Neurologic Disorders: No Hx Family HEENT Disorders: No Hx Family Autoimmune Disorders: No Medications and Allergies Sevelamer [Renvela] 1,600 mg PO TIDWM 04/25/17 [History] Metoprolol XL (24 HR) Succ [Toprol Xl] 25 mg PO DAILY #30 tab.er.24h 02/13/18 [ Rx] Ergocalciferol (VITAMIN D2) [Vitamin D2] 50,000 unit PO QWEEK 04/17/18 [History] Folic Acid/Vit B Complex and C [Dialyvite Tablet] 1 tab PO DAILY 05/21/18 [ History] 3 Allergy/AdvReac Type Severity Reaction Status Date / Time No Known Allergies Allergy Verified 02/11/18 07:19 Review of Systems Constitutional: fatigue, weight gain, no chills, no fever(s) Cardiovascular: dyspnea, orthopnea, no chest pain Gastrointestinal: no abdominal pain, no change in bowel habits, no diarrhea, no nausea, no vomiting Exam - Vital Signs Vital signs: Initial Vital Signs Temp Pulse Resp BP Pulse Ox 98.1 F 92 16 161/116 100 05/21/18 15:51 05/21/18 15:51 05/21/18 15:51 05/21/18 15:51 05/21/18 15:51 Vital Signs - Last 8 Hours Temp Pulse Resp BP Pulse Ox 05/22/18 08:24 97.9 F 94 16 137/90 94 05/22/18 05:33 98.6 F 93 18 152/108 96 Intake and Output 05/21/18 05/22/18 05/22/18 23:59 07:59 15:59 Intake Total 120 / 120 Output Total 0 / 0 Balance 120 / 120 Intake: Oral 120 / 120 Output: Urine 0 / 0 Other: Meal Breakfast Percent of Meal Consumed 100% Weight 152.2 kg Patient Weight 05/22/18 23:59 Weight 152.2 kg - General Appearance General appearance: well-developed, well-nourished, obese EENT: ATNC, hearing intact, vision intact Neck: supple Respiratory: clear Cardiology: edema (+1 pitting edema noted to bilat lower extremities.), normal S1, normal S2 Gastrointestinal: normoactive bowel sounds, no tenderness, no guarding, obese Integumentary: no rash, warm and dry Neurologic: alert and oriented x3 Psychiatric: mood/affect appropriate, cooperative Results - Lab Results 05/22/18 05:39 05/22/18 05:39 Most recent lab results Calcium 8.9 mg/dL (8.6-10.3) 05/22/18 05:39 Consult Discharge Plan - Plan Instructions: Ascites (DC) Additional Instructions: Follow-up with your primary care provider within one week of discharge. If you do not have a primary care provider, you may establish with one at the [facility]: [phone] Please take all your home medications as prescribed. Please follow a fluid restricted diet as prescribed by your doctor. Continue with routinely schedules paracentesis and close follow-up with gastroenterology follow-up with urology to have suprapubic catheter exchanged return to the emergency department immediately if your symptoms recur Referrals: Venkat Hooper MD [Partnered Physician] - (Web request completed 2018 for Venkat Hooper MD) NONE,PCP [Primary Care Provider] - Blanca Garza MD [Partnered Physician] - (Web request completed 05/23/2019 for Blanca Garza MD ) <Roz Fisher - Last Filed: 05/25/18 00:39> Date of Encounter: 05/22/18 Assessment and Plan (1) Fluid overload Status: Acute Qualifiers: Hypervolemia type: unspecified Qualified Code(s): E87.70 - Fluid overload, unspecified (2) Ascites Status: Chronic Qualifiers: Ascites type: other type Qualified Code(s): R18.8 - Other ascites (3) ESRD (end stage renal disease) on dialysis Status: Acute Exam - Vital Signs Vital signs: Initial Vital Signs Temp Pulse Resp BP Pulse Ox 98.1 F 92 16 161/116 100 05/21/18 15:51 05/21/18 15:51 05/21/18 15:51 05/21/18 15:51 05/21/18 15:51 Results - Lab Results 05/23/18 04:47 05/23/18 04:47 Most recent lab results Calcium 9.1 mg/dL (8.6-10.3) 05/23/18 04:47 - Attending Attestation I examined this patient and my medical decision-making was reviewed with the Resident Physician/TOP CLEANER. I agree with the documented findings, disposition and treatment plan as described except to the extent set forth below. Pt seen and examined and in brief; 32 y o male with PMH of ESRD on HD with CHF and recurrent ascites and noncompliance with HD, diet or meds admitted with increasing abdominal girth and SOB. Pt received last HD on but missed his friday session. Pt also forgets to go for standing scheduled paracentesis with IR every 2 weeks. On exam sitting forward in bed appears uncomfortable, abdomen very distended and trace LE edema noted. Lytes stable. Needs paracentesis today. Will schedule HD for tomorrow.
--- NOTE | 2018-05-22 11:42 | Internal Med Progress Note ---
<Marcellus Johnson - Last Filed: 05/22/18 14:35> Hospitalist Progress Note - Encounter Date of Encounter: 05/22/18 Time of Encounter: 11:38 - Subjective Interval History: Patient seen and examined this morning, no acute events overnight, no acute complaints right now We discussed him having paracentesis today and having his suprapubic catheter changed today He understood and agreed with this plan of care - Exam Vitals: Temp Pulse Resp BP Pulse Ox 97.9 F 94 16 137/90 94 05/22/18 08:24 05/22/18 08:24 05/22/18 08:24 05/22/18 08:24 05/22/18 09:46 Exam: Patient in no acute distress, alert and oriented x 3 Neck without JVD or lymphadenopathy Heart in regular rate and rhythm without murmur or gallop Lungs clear to auscultation without wheeze or rales or rhonchi Abdomen severely obese and distended, soft and non tender, fluid wave present, bowel sounds present and normal, striae present Skin warm and dry - Assessment and Plan (1) Orthopnea Current Visit: Yes Status: Acute Assessment and Plan: Patient presented with orthopnea likely secondary to ascites He was put on 2L nasal cannula as needed to maintain o2 saturation 92% He has been saturating in the 90s on room air He received paracentesis today (2) Ascites Current Visit: Yes Status: Chronic Assessment and Plan: Patient has history of cirrhosis, likely secondary to heart failure Usually gets paracentesis every 6 weeks Ascites became symptomatic with orthopnea causing admission Paracentesis performed today, orhtopnea improved Patient will now transition to 2 week schedule (3) Renal failure Current Visit: Yes Status: Chronic Assessment and Plan: Dialysis Tuesdays, , Saturdays. Patient will receive dialysis tomorrow Will likely be stable for discharge after dialysis (4) Decreased hemoglobin Current Visit: Yes Status: Chronic Assessment and Plan: Hemoglobin stable today at 12.7 (5) Hypertension Current Visit: Yes Status: Chronic Assessment and Plan: Continue home medications. DVT Prophylaxis: 5,00 units sq heparin Q12H - Time Spent with Patient Total time spent is greater than 50% in coordination of care (as documented) at patient's floor/unit and/or counseling patient: Internal Medicine: Result - Labs CBC & Chem 7: 05/22/18 05:39 05/22/18 05:39 Labs: Short CBC 05/22/18 Range/Units 05:39 WBC 7.8 (4.3-11.1) K/mcL Hgb 12.6 L (12.9-16.9) g/dL Hct 39.9 (37.5-50.1) % Plt Count 165 (140-400) K/mcL Neutrophils # 5.3 (1.6-8.9) K/mcL BMP 05/22/18 05:39 Sodium 135 L Potassium 5.0 D Chloride 96 L Carbon Dioxide 26 BUN 36 H Creatinine 8.67 H Glucose 105 Calcium 8.9 - VTE Reasons for not Prescribing Prophylaxis: Treatment not Indicated - Low risk for VTE Consult Discharge Plan - Plan Referrals: NONE,PCP [Primary Care Provider] - <Breana Cannon - Last Filed: 05/22/18 15:57> Hospitalist Progress Note - Encounter Date of Encounter: 05/22/18 - Exam Vitals: Temp Pulse Resp BP Pulse Ox 98.1 F 95 18 157/115 98 05/22/18 14:22 05/22/18 14:22 05/22/18 14:22 05/22/18 14:22 05/22/18 14:22 - Assessment and Plan (1) Renal failure Current Visit: Yes Status: Chronic (2) Ascites Current Visit: Yes Status: Chronic (3) Orthopnea Current Visit: Yes Status: Acute (4) Decreased hemoglobin Current Visit: Yes Status: Chronic (5) Hypertension Current Visit: Yes Status: Chronic - Time Spent with Patient Total time spent is greater than 50% in coordination of care (as documented) at patient's floor/unit and/or counseling patient: Internal Medicine: Result - Labs CBC & Chem 7: 05/22/18 05:39 05/22/18 05:39 Labs: Short CBC 05/22/18 Range/Units 05:39 WBC 7.8 (4.3-11.1) K/mcL Hgb 12.6 L (12.9-16.9) g/dL Hct 39.9 (37.5-50.1) % Plt Count 165 (140-400) K/mcL Neutrophils # 5.3 (1.6-8.9) K/mcL BMP 05/22/18 05:39 Sodium 135 L Potassium 5.0 D Chloride 96 L Carbon Dioxide 26 BUN 36 H Creatinine 8.67 H Glucose 105 Calcium 8.9 - Attending Attestation I examined this patient and my medical decision-making was reviewed with the Resident Physician Dr. Johnson. I agree with the documented findings, disposition and treatment plan as described except to the extent set forth below. Mr. Snyder is a 32 y/o M with known PMH of systolic CHF, ESRD on HD Fri/Fri/Fri , Cirrhosis of liver with unclear etiology mostly due to Systolic CHF, non ishcemic cardiomyopathy who presented to ER with worsening abdominal girth and orthopnea due to worsening ascities. Gen: A, A, O x 3 Abd: Distended, ascities+ a/p 1. Acute severe ascities due to cirrhosis of liver + Systolic CHF had theraputiec paracentesis today post procedure doing well removed 9 lit fluid will give 50gm Albumin 2. ESRD on HD cont HD as per Nephro 3. Chronic supra pubic catheter Urology consulted to replace it today <Marcellus Johnson - Last Filed: 05/22/18 14:35> (2) Ascites Qualifiers: Ascites type: other type Qualified Code(s): R18.8 - Other ascites (3) Renal failure Qualifiers: Renal failure chronicity: chronic Chronic kidney disease stage: on chronic dialysis Qualified Code(s): N18.6 - End stage renal disease; Z99.2 - Dependence on renal dialysis (5) Hypertension Qualifiers: Hypertension type: unspecified Qualified Code(s): I10 - Essential (primary) hypertension <Breana Cannon - Last Filed: 05/22/18 15:57> (1) Renal failure Qualifiers: Renal failure chronicity: chronic Chronic kidney disease stage: on chronic dialysis Qualified Code(s): N18.6 - End stage renal disease; Z99.2 - Dependence on renal dialysis (2) Ascites Qualifiers: Ascites type: other type Qualified Code(s): R18.8 - Other ascites (5) Hypertension Qualifiers: Hypertension type: unspecified Qualified Code(s): I10 - Essential (primary) hypertension
--- NOTE | 2018-05-22 14:29 | Procedure Note ---
Date of procedure: 05/22/18 Pre-op diagnosis: ascites Post-op diagnosis: same Procedure: Consent was obtained from Mr. Snyder prior to the procedure. Indications, risks , benefits were explained at length including bleeding, infection, bowel perforation. A timeout was performed. My hands were washed immediately prior to the procedure. Ultrasound was used to identify a suitable pocket of fluid in the abdomen, the area was marked. The left lower quadrant of the abdomen was cleansed and draped in usual sterile fashion using chlorhexidine. 1% lidocaine was used to anesthetize the skin, soft tissue, peritoneum. The paracentesis catheter was inserted and advanced with negative pressure until straw-colored fluid was aspirated. The catheter was advanced while the needle was held and withdrawn. The catheter was then connected to the Vacutainer and 9 L of ascitic fluid were drained. The catheter was removed and no leaking was noted. Dermabond was placed over the puncture wound and a Band-Aid was placed over that. The patient tolerated the procedure well without any immediate complications. Estimated blood loss was 2 mL. Vitals were done immediately after the procedure. Total fluid removed was 9 L Anesthesia: regional Surgeon: Marcellus Johnson Was there an curriculum assistant principal present: Yes Tag Writer: Mark Maurer Estimated blood loss (cc): 2 Specimen: none Pathology: none sent Condition: stable Disposition: floor
[2018-05-22] MEDS: Albumin 25% 25gram/100mL 25 GM/100 ML IV.SOLN IVC SCH ×2 (16:12→17:48)
[2018-05-22] MEDS: *HR* Heparin 5,000 UNIT/ML VIAL SQ SCH (16:20)
[2018-05-23 05:26] LABS: Basophils % 0.6 %; Eosinophils # 0.4 K/mcL (0.0-0.6); Eosinophils % 5.2 %; Hematocrit 39.9 % (37.5-50.1); Hemoglobin 12.8 g/dL (12.9-16.9); Immature Granulocytes % 0.3 % (0-4); Lymphocytes # 1.5 K/mcL (0.6-4.6); Lymphocytes % 21.4 %; Mean Corpuscular HGB Conc 32.1 g/dL (31.6-35.5); Mean Corpuscular Hemoglobin 30.3 pg (28.0-33.3); Mean Corpuscular Volume 94.3 fL (83.0-100.0); Mean Platelet Volume 10.6 fL (9.4-12.4); Monocytes # 0.8 K/mcL (0.0-1.3); Monocytes % 11.8 %; Neutrophils # 4.2 K/mcL (1.6-8.9); Platelet Count 148 K/mcL (140-400); Red Blood Count 4.23 M/mcL (4.19-5.50); Red Cell Distribution Width 14.8 % (11.5-14.5); Segmented Neutrophils % 60.7 %
[2018-05-23 05:50] LABS: Albumin 3.6 g/dL (3.5-5.7); Albumin/Globulin Ratio 1.2 (1.1-2.2); Bilirubin,Total 0.6 mg/dL (0.3-1.0); Calcium 9.1 mg/dL (8.6-10.3); Potassium 5.6 mEq/L (3.5-5.1); Total Protein 6.6 g/dL (6.4-8.9)
[2018-05-23] MEDS: *HR* Heparin 5,000 UNIT/ML VIAL SQ SCH (06:44)
[2018-05-23] MEDS: OXYCODONE Oral CONC 10 MG/0.5 ML ORAL.SYG SL PRN ×2 (06:47→13:03)
[2018-05-23] MEDS ORDERED: 0.9 % Sodium Chloride 250 ML IVC PRN (07:33)
[2018-05-23] MEDS ORDERED: 0.9 % Sodium Chloride 1,000 ML PRIME SCH (07:45)
--- NOTE | 2018-05-23 07:54 | Discharge Summary ---
<Mark Maurer - Last Filed: 05/23/18 08:08> - NOTES TO OUTPATIENT PROVIDER Notes to Outpatient Provider: patient counseled extensively on following fluid restricted diet. Date of Encounter: 05/23/18 Time of Encounter: 07:52 - Discharge Diagnosis (1) Ascites Priority: Primary Status: Chronic Qualifiers: Ascites type: other type Qualified Code(s): R18.8 - Other ascites (2) Orthopnea Priority: Secondary Status: Acute (3) ESRD (end stage renal disease) on dialysis Priority: Secondary Status: Chronic (4) Tobacco abuse Priority: Secondary Status: Chronic (5) Umbilical hernia without obstruction or gangrene Priority: Secondary Status: Chronic (6) Cirrhosis Priority: Secondary Status: Chronic Qualifiers: Hepatic cirrhosis type: unspecified hepatic cirrhosis Ascites presence: with ascites Qualified Code(s): K74.60 - Unspecified cirrhosis of liver; R18.8 - Other ascites (7) Systolic heart failure Priority: Secondary Status: Chronic Qualifiers: Heart failure chronicity: chronic Qualified Code(s): I50.22 - Chronic systolic (congestive) heart failure (8) Obesity, morbid, BMI 40.0-49.9 Priority: Secondary Status: Chronic (9) DVT prophylaxis Priority: Secondary Status: Acute (10) Hypertension Priority: Secondary Status: Chronic Qualifiers: Hypertension type: unspecified Qualified Code(s): I10 - Essential (primary ) hypertension Hospital course: Mr. Snyder is a 32 year old male with past medical history of ESRD (on hemodialysis Friday, , Friday), cirrhosis with ascites, systolic and diastolic CHF (last echo 02/11/18 showed LVEF 25-30%), hypertension, none ischemic cardiomyopathy, hyperlipidemia. Patient arrived to [facility] on 05/21/18 with chief complaint of increasing shortness of breath, orthopnea or the past day. Patient routinely gets scheduled paracentesis every 6 weeks, and his prior paracentesis was about 2-3 weeks ago. Patient states that he has not been compliant this fluid restricted diet and has been drinking more fluids you should. Patient was admitted for symptoms. He had abdominal paracentesis done on 05/22/18 with 9 L of fluid removed. Patient tolerated the procedure well, and stated that his symptoms had resolved after the procedure. Patient received albumin afterwards procedure and remained asymptomatic overnight. He was discharged after his routinely scheduled dialysis, and discharged in stable condition. Discharge discussed with: patient Time spent discussing smoking cessation with patient: 3 to 10 minutes - Time Spent with Patient Total time spent providing and/or coordinating discharge services: Less than 30 minutes - Discharge Medications Home Medications: Sevelamer [Renvela] 1,600 mg PO TIDWM 04/25/17 [History] Metoprolol XL (24 HR) Succ [Toprol Xl] 25 mg PO DAILY #30 tab.er.24h 02/13/18 [ Rx] Ergocalciferol (VITAMIN D2) [Vitamin D2] 50,000 unit PO QWEEK 04/17/18 [History] Folic Acid/Vit B Complex and C [Dialyvite Tablet] 1 tab PO DAILY 05/21/18 [ History] Allergies/Adverse Reactions: 3 Allergy/AdvReac Type Severity Reaction Status Date / Time No Known Allergies Allergy Verified 02/11/18 07:19 Date of admission: 05/21/18 22:52 Primary care physician: PCP NONE Consults: 05/23/18 07:45 Consult to Dialysis [CONS] ONCE Discharging clinician: Mark Maurer Anticipated date of discharge: 05/23/18 - Constitutional Vitals: Temp Pulse Resp BP Pulse Ox 97 F L 70 18 155/109 99 05/23/18 04:45 05/23/18 04:45 05/23/18 04:45 05/23/18 04:45 05/23/18 04:45 General appearance: Present: A&O X 3, pleasant, no acute distress, answers questions appropriately Exam: Obese - Head Head exam: Present: atraumatic, normocephalic - Neck Neck exam general surgery: Present: supple, trachea midline - Respiratory Respiratory exam: Present: CTAB. Absent: rhonchi, wheezes - Cardiovascular Cardiovascular exam: Present: RRR, +S1, +S2. Absent: diastolic murmur, irregular rhythm, systolic murmur, tachycardia - GI/Abdominal Additional comments: Soft, distended, mild fluid wave present - Extremities Exam Extremities exam: Absent: cyanotic Additional comments: Mild +1 pitting edema bilateral lower extremities - Neurological Exam Neurological exam: Present: alert, oriented X3, no focal deficits - Psychiatric Psychiatric exam: Present: normal affect, normal mood - Skin Skin exam: Present: intact - Patient Status Disposition: Home, Self-Care Condition: Good Functional capacity at discharge: independent ambulation Overall status at discharge: patient is back to baseline - Discharge Instructions Follow Up With: NONE,PCP [Primary Care Provider] - Blanca Garza MD [Partnered Physician] - Venkat Hooper MD [Partnered Physician] - Forms: ED Satisfaction Letter Additional Instructions: Follow-up with your primary care provider within one week of discharge. If you do not have a primary care provider, you may establish with one at the [facility] clinic: [phone] Please take all your home medications as prescribed. Please follow a fluid restricted diet as prescribed by your doctor. Continue with routinely schedules paracentesis and close follow-up with gastroenterology follow-up with urology to have suprapubic catheter exchanged return to the emergency department immediately if your symptoms recur - Diet and Activity Activity: increase activity as tolerated Diet: low fat, low cholesterol, low salt diet, other (Renal diet) - VTE Reasons for not Prescribing Prophylaxis: Treatment not Indicated - Low risk for VTE <Breana Cannon - Last Filed: 05/23/18 08:31> Date of Encounter: 05/23/18 - Discharge Diagnosis (1) Obesity, morbid, BMI 40.0-49.9 Status: Chronic (2) Tobacco abuse Status: Chronic (3) ESRD (end stage renal disease) on dialysis Status: Chronic (4) DVT prophylaxis Status: Acute (5) Systolic heart failure Status: Chronic Qualifiers: Heart failure chronicity: chronic Qualified Code(s): I50.22 - Chronic systolic (congestive) heart failure (6) Cirrhosis Status: Chronic Qualifiers: Hepatic cirrhosis type: unspecified hepatic cirrhosis Ascites presence: with ascites Qualified Code(s): K74.60 - Unspecified cirrhosis of liver; R18.8 - Other ascites (7) Ascites Status: Chronic Qualifiers: Ascites type: other type Qualified Code(s): R18.8 - Other ascites (8) Umbilical hernia without obstruction or gangrene Status: Chronic (9) Orthopnea Status: Acute (10) Hypertension Status: Chronic Qualifiers: Hypertension type: unspecified Qualified Code(s): I10 - Essential (primary ) hypertension Hospital course: Mr. Snyder is a 32 year old male - Time Spent with Patient Total time spent providing and/or coordinating discharge services: Date of admission: 05/21/18 22:52 Primary care physician: PCP NONE Consults: 05/23/18 07:45 Consult to Dialysis [CONS] ONCE - Constitutional Vitals: Temp Pulse Resp BP Pulse Ox 97.9 F 87 16 134/90 91 05/23/18 08:04 05/23/18 08:04 05/23/18 08:04 05/23/18 08:04 05/23/18 08:04 - Attending Attestation I examined this patient and my medical decision-making was reviewed with the Resident Physician Dr. Johnson. I agree with the documented findings, disposition and treatment plan as described except to the extent set forth below. Mr. Snyder is a 32 y/o M with known PMH of systolic CHF, ESRD on HD Fri/Fri/Fri , Cirrhosis of liver with unclear etiology mostly due to Systolic CHF, non ishcemic cardiomyopathy who presented to ER with worsening abdominal girth and orthopnea due to worsening ascities. Had paracentesis y/d, feling lot better today. Heting HD now. Gen: A, A, O x 3 Abd: Distended, mild ascities a/p 1. Acute severe ascities due to cirrhosis of liver + Systolic CHF had therapeutic paracentesis post procedure did well removed 9 lit fluid Gave him 50gm Albumin 2. ESRD on HD cont HD as per Nephro 3. Chronic supra pubic catheter out pt f/u with Urology for cath removal medically stable to d/c home today
--- NOTE | 2018-05-23 10:03 | Nephrology Progress Note ---
Date of Encounter: 05/23/18 Time of Encounter: 10:00 - Assessment and Plan (1) Fluid overload Current Visit: Yes Status: Acute Qualifiers: Hypervolemia type: unspecified Qualified Code(s): E87.70 - Fluid overload, unspecified (2) Ascites Current Visit: Yes Status: Chronic Qualifiers: Ascites type: other type Qualified Code(s): R18.8 - Other ascites (3) ESRD (end stage renal disease) on dialysis Current Visit: Yes Status: Acute Subjective Interval history: Interim noted s/p paracentesis with 9liters drained. Pt seen and examined on HD Objective - Vital Signs Vital signs: Vital Signs Temp Pulse Resp BP Pulse Ox 05/23/18 08:04 97.9 F 87 16 134/90 91 05/23/18 04:45 97 F L 70 18 155/109 99 05/23/18 01:15 98.7 F 90 18 169/95 95 05/22/18 20:05 98.6 F 85 17 153/104 99 05/22/18 16:21 97.9 F 86 16 142/95 96 05/22/18 14:22 98.1 F 95 18 157/115 98 05/22/18 12:17 98.9 F 89 17 136/92 95 Intake and Output 05/22/18 05/23/18 05/23/18 23:59 07:59 15:59 Intake Total 100 / 100 Balance 100 / 100 Intake: IV Fluids 100 / 100 Flexbumin 25 gm In 100 ml @ 60 100 / 100 mls/hr IVC .Q1H40M [facility] Rx#: [id number] Other: Meal 2 goldfish 2 chocolate puddings # Voids 2 # Bowel Movements 1 Weight 146.4 kg Patient Weight 05/23/18 23:59 Weight 146.4 kg - Lab 05/23/18 04:47 05/23/18 04:47 Most recent lab results Calcium 9.1 mg/dL (8.6-10.3) 05/23/18 04:47 - VTE Reasons for not Prescribing Prophylaxis: Treatment not Indicated - Low risk for VTE Consult Discharge Plan - Plan Additional Instructions: Follow-up with your primary care provider within one week of discharge. If you do not have a primary care provider, you may establish with one at the [facility] clinic: [phone] Please take all your home medications as prescribed. Please follow a fluid restricted diet as prescribed by your doctor. Continue with routinely schedules paracentesis and close follow-up with gastroenterology follow-up with urology to have suprapubic catheter exchanged return to the emergency department immediately if your symptoms recur Referrals: Venkat Hooper MD [Partnered Physician] - (Web request completed 2018 for Venkat Hooper MD) NONE,PCP [Primary Care Provider] - Blanca Garza MD [Partnered Physician] - (Web request completed 05/23/2019 for Blanca Garza MD )
--- NOTE | 2018-05-23 11:51 | Electrocardiograph Report ---
[address] [place] [address] Test Date: 2018-05-21 Pat Name: Song Snyder Department: EXAM10 Room: 2A39 Gender: M Uptwister Tender: : 1985 Requested By: Awais Romo Order Number: [id number] Reading MD: Farzana Baron Measurements Intervals [place] Rate: 92 P: 51 [place]: 163 QRS: 29 QRSD: 119 T: 153 QT: 395 QTc: 489 Interpretive Statements Sinus rhythm Nonspecific intraventricular conduction delay Abnormal T, consider ischemia, lateral leads Prolonged QT interval Electronically Signed On 05-23-2018 11:49:11 EDT by Farzana Baron
[2018-05-23 16:08] VITALS: BP 154/78
== END 2018-05-23 13:40 | disposition home or self-care (01) ==
LOC: EMEROOARM 15:47 → 2ANU 15:47
PROVIDERS: ADMIT Internal Medicine; ATTEND Internal Medicine

== ENCOUNTER 2018-10-12 18:49 | Inpatient (IN) ==
--- NOTE | 2018-10-12 19:33 | Emergency Department Note ---
Disposition Clinical Impression: Hyperkalemia, ESRD (end stage renal disease) on dialysis, Noncompliance, Chronic renal failure, Inguinal hernia, COPD exacerbation Hematuria Qualifiers: Hematuria type: gross Qualified Code(s): R31.0 - Gross hematuria UTI (urinary tract infection) due to urinary indwelling catheter Qualifiers: Indwelling urinary catheter type: cystostomy catheter Encounter type: initial encounter Qualified Code(s): T83.510A - Infection and inflammatory reaction due to cystostomy catheter, initial encounter Disposition: Still a Patient Condition: Serious Referrals: NONE,PCP [Primary Care Provider] - Forms: ED Satisfaction Letter SOB HPI - General Chief Complaint: ED Shortness of Breath/Dyspnea Stated Complaint: sob, blood in urine Time Seen by Provider: 10/12/18 18:54 Source: EMS Limitations: no limitations - History of Present Illness 33 y/o M hx ESRD and chronic suprapubic cath presents for shortness of breath and cough increased last week with fevers. He also has missed last three dialysi treatments T/TR/Sat and has become weaker with episodes of dizziness since last HD 8-9 days ago. He reports new onset blood in suprapubic cath. he had last pericentsis last week with increased abdominal distension since. He also reports large volume diarrhea with out melena. Smoker with greater than 10pkyr never diagnosed with COPD or asthma. He follows with [place] for his bladder stricture s/p chronic suprapubic cath. Pt Subjective Complaint: shortness of breath, cough - Related Data Home Medications Medication Instructions Recorded Confirmed Sevelamer [Renvela] 2,400 mg PO TIDWM 04/25/17 08/03/18 Ergocalciferol (VITAMIN D2) 50,000 unit PO QWEEK 04/17/18 08/03/18 [Vitamin D2] Aspirin [Lo-Dose Aspirin EC] 81 mg PO DAILY 08/03/18 08/03/18 Metoprolol Succinate [Toprol Xl] 100 mg PO DAILY 08/03/18 08/03/18 Previous Rx's Medication Instructions Recorded Cefdinir [Omnicef] 300 mg PO BID #14 capsule 09/09/18 Albuterol Sulfate [Albuterol 2 puff IH Q6HR #1 hfa.aer.ad 10/08/18 Inhaler] predniSONE [PredniSONE] 60 mg PO DAILY #15 tablet 10/08/18 Allergies Allergy/AdvReac Type Severity Reaction Status Date / Time No Known Allergies Allergy Verified 09/09/18 13:48 Constitutional: Reports: fever, chills, weakness ENT ED: Reports: congestion Cardiovascular: Reports: edema (at baseline). Denies: chest pain, palpitations Respiratory: Reports: cough, dyspnea, wheezes, sputum production Gastrointestinal: Reports: diarrhea. Denies: abdominal pain, nausea, vomiting, constipation Genitourinary: Reports: hematuria. Denies: urgency, dysuria Neurological: Reports: headache, weakness Endocrine: Reports: fatigue Past Medical History - Past Medical History Medical history: Reports: cardiomyopathy, CHF, dialysis, hyperlipidemia, hypertension, liver disease, renal disease, other Surgical history: Reports: orthopedic, other, vascular surgery, other Psychiatric history: Reports: anxiety, depression - Social History Smoking Status: Current every day smoker Smokeless Tobacco Status: No Alcohol use: Reports: none Drug use: Reports: none Physical Exam - General Limitations: no limitations General appearance: alert, in no apparent distress, obese - Head Head exam: atraumatic, normocephalic, normal inspection - Eye Eye exam: Present: normal appearance, EOMI - Chest Chest inspection: Present: normal inspection, symmetric chest wall rise - Respiratory Respiratory exam: Present: wheezes. Absent: respiratory distress - Cardiovascular Cardiovascular exam: Present: regular rate, normal rhythm, normal heart sounds - Abdominal Exam Abdominal exam: Present: soft, Non-Tender, distention, diminished bowel sounds - Extremities Exam Extremities exam: Present: normal inspection, full ROM, pedal edema (+2 bilat pitting ). Absent: tenderness Course Course Narrative: 33 y/o M Hx CHF and ESRD with chronic suprapubic cath present with multiple comp laints including increased shortness of breath and productive cough. He also presents with new hematuria and more than one week since last dialysis - Reevaluation(s) Reevaluation #1: Patient reports groin pain hx inguinal hernia with increased cough after duoneb treatment on exam large tension inguinal hernia not reducible. Treated with fentanyl as liver disease and ESRD. This will be evaluated with CT also. Time: 20:33 Reevaluation #2: Hyperkalemia 6.9. Case discussed with Dr Sherrell Santa who he sees outpatient with history of non adherence. She advises trement with 60 kayexalate and insulin. She accepted consult and plans for HD tomorrow. We will also give calcium gluconate. UA shows hematuria and infection with positive Nitrates thus will treat with rocephin . We will obtain blood cultures. On re -exam by Dr Thelma Yates right inguinal hernia is reducible but immediately returns Time: 20:52 Reevaluation #3: Still awaiting CT abd/pelvis for evaluation of hematuria and increase abdominal distension. Elevated troponin 0.05 and BNP similar to previous admits. Anticipate patient will be admitted for HD, Hyperkalemia, dyspnea and UTI Time: 21:10 Vital Signs Temperature 98.2 F 10/12/18 18:56 Pulse Rate 87 10/12/18 18:56 Respiratory Rate 16 10/12/18 18:56 Blood Pressure 167/106 10/12/18 18:56 O2 Sat by Pulse Oximetry 98 10/12/18 18:56 Temperature 98.2 F 10/12/18 18:56 Pulse Rate 91 10/12/18 20:50 Respiratory Rate 16 10/12/18 20:50 Blood Pressure 138/93 10/12/18 20:50 O2 Sat by Pulse Oximetry 95 10/12/18 20:50 Oxygen Delivery Oxygen Delivery Room Air Shortness of Breath/Dyspnea - Differential Diagnosis Likely: acute exacerbation of chronic obstructive airways disease, congestive heart failure - Medical Records Medical records reviewed: Yes I reviewed the patient's medical records. - Lab Data Lab results reviewed: Yes I reviewed the patient's lab results. Result diagrams: 10/12/18 19:53 10/12/18 19:53 Lab Results 10/12/18 10/12/18 10/12/18 Range/Units 19:34 19:53 19:53 WBC 7.8 (4.3-11.1) K/mcL RBC 3.88 L (4.19-5.50) M/mcL Hgb 11.4 L (12.9-16.9) g/dL Hct 34.4 L (37.5-50.1) % MCV 88.7 (83.0-100.0) fL MCH 29.4 (28.0-33.3) pg MCHC 33.1 (31.6-35.5) g/dL RDW 15.1 H (11.5-14.5) % Plt Count 158 (140-400) K/mcL MPV 10.4 (9.4-12.4) fL Immature Gran % 0.5 (0-4) % Seg Neutrophils % 78.2 % Lymphocytes % 8.9 % Monocytes % 8.2 % Eosinophils % 3.7 % Basophils % 0.5 % Neutrophils # 6.1 (1.6-8.9) K/mcL Lymphocytes # 0.7 (0.6-4.6) K/mcL Monocytes # 0.6 (0.0-1.3) K/mcL Eosinophils # 0.3 (0.0-0.6) K/mcL Basophils # 0.0 (0.0-0.2) K/mcL Sodium 132 L (136-145) mEq/L Potassium 6.1 H (3.5-5.1) mEq/L Chloride 95 L (98-107) mEq/L Carbon Dioxide 21 L (23-29) mEq/L BUN 111 H (6-20) mg/dL Creatinine 16.33 H (0.70-1.30) mg/dL Est GFR ( Amer) 4 L (> 60) Est GFR (Non-Af Amer) 3 L (> 60) BUN/Creatinine Ratio 7 (6-26) Glucose 107 H (70-105) mg/dL Calculated Osmolality 310 H (280-300) Calcium 8.6 (8.6-10.3) mg/dL Total Bilirubin 0.4 (0.3-1.0) mg/dL Direct Bilirubin 0.1 (0.0-0.2) mg/dL Indirect Bilirubin 0.3 (0.0-1.2) mg/dL AST 7 L (13-39) Units/L ALT 5 L (7-52) Units/L Alkaline Phosphatase 128 H (34-104) Units/L Troponin I 0.05 H* (< 0.04) ng/mL B-Natriuretic Peptide (Less than 100) pg/mL Serum Total Protein 5.7 L (6.4-8.9) g/dL Albumin 2.7 L (3.5-5.7) g/dL Globulin 3.0 (2.4-3.5) g/dL Albumin/Globulin Ratio 0.9 L (1.1-2.2) Urine Color Red A (Yellow) Urine Clarity Turbid A (Clear) Urine pH 7.5 (5.0-8.0) pH Units Ur Specific [place] 1.025 (1.010-1.025) Urine Protein >=1000 H (Neg-Trace) mg/dL Urine Glucose (UA) Normal (Normal) mg/dL Urine Ketones 15 H (Negative) mg/dL Urine Blood Large H (Negative) Urine Nitrite Positive A (Negative) Urine Bilirubin Large H (Negative) Urine Urobilinogen Normal (Normal) mg/dL Ur Leukocyte Esterase Large H (Negative) Ur Culture Indicated? YES A (NO) 10/12/18 Range/Units 19:53 WBC (4.3-11.1) K/mcL RBC (4.19-5.50) M/mcL Hgb (12.9-16.9) g/dL Hct (37.5-50.1) % MCV (83.0-100.0) fL MCH (28.0-33.3) pg MCHC (31.6-35.5) g/dL RDW (11.5-14.5) % Plt Count (140-400) K/mcL MPV (9.4-12.4) fL Immature Gran % (0-4) % Seg Neutrophils % % Lymphocytes % % Monocytes % % Eosinophils % % Basophils % % Neutrophils # (1.6-8.9) K/mcL Lymphocytes # (0.6-4.6) K/mcL Monocytes # (0.0-1.3) K/mcL Eosinophils # (0.0-0.6) K/mcL Basophils # (0.0-0.2) K/mcL Sodium (136-145) mEq/L Potassium (3.5-5.1) mEq/L Chloride (98-107) mEq/L Carbon Dioxide (23-29) mEq/L BUN (6-20) mg/dL Creatinine (0.70-1.30) mg/dL Est GFR ( Amer) (> 60) Est GFR (Non-Af Amer) (> 60) BUN/Creatinine Ratio (6-26) Glucose (70-105) mg/dL Calculated Osmolality (280-300) Calcium (8.6-10.3) mg/dL Total Bilirubin (0.3-1.0) mg/dL Direct Bilirubin (0.0-0.2) mg/dL Indirect Bilirubin (0.0-1.2) mg/dL AST (13-39) Units/L ALT (7-52) Units/L Alkaline Phosphatase (34-104) Units/L Troponin I (< 0.04) ng/mL B-Natriuretic Peptide 2440 H (Less than 100) pg/mL Serum Total Protein (6.4-8.9) g/dL Albumin (3.5-5.7) g/dL Globulin (2.4-3.5) g/dL Albumin/Globulin Ratio (1.1-2.2) Urine Color (Yellow) Urine Clarity (Clear) Urine pH (5.0-8.0) pH Units Ur Specific [place] (1.010-1.025) Urine Protein (Neg-Trace) mg/dL Urine Glucose (UA) (Normal) mg/dL Urine Ketones (Negative) mg/dL Urine Blood (Negative) Urine Nitrite (Negative) Urine Bilirubin (Negative) Urine Urobilinogen (Normal) mg/dL Ur Leukocyte Esterase (Negative) Ur Culture Indicated? (NO) - Radiology Data Radiology results reviewed: Yes I reviewed the patient's radiology results. Chest X-Ray 10/12/18 19:28 IMPRESSION: Borderline to mild cardiomegaly and interstitial prominence increased over prior study suggesting vascular congestion versus interstitial pneumonitis. D/ / Day Cardona MD / Day Cardona MD Interpreting Provider: Day Cardona MD - EKG Data EKG attestation: Yes I reviewed and interpreted this EKG. EKG shows normal: Reports: sinus rhythm, QRS complexes Rate: Reports: normal Rhythm: Reports: NSR Interpretation: Reports: no acute changes, unchanged when compared to prior tracing (date) (09-10-18)
[2018-10-12] MEDS ORDERED: Isovue-370 500 ML BOTTLE IVP ONE (19:40)
[2018-10-12] MEDS ORDERED: Ipratropium/Albuterol Neb 3 ML IH ONE (19:42)
[2018-10-12] MEDS ORDERED: methylPREDNISolone 125 MG/2 ML VIAL IVP ONE (19:42)
[2018-10-12] MEDS: Ipratropium/Albuterol Neb 3 ML IH ONE ×2 (19:51→20:14)
[2018-10-12 20:14] LABS: Basophils % 0.5 %; Eosinophils # 0.3 K/mcL (0.0-0.6); Eosinophils % 3.7 %; Hematocrit 34.4 % (37.5-50.1); Hemoglobin 11.4 g/dL (12.9-16.9); Immature Granulocytes % 0.5 % (0-4); Lymphocytes # 0.7 K/mcL (0.6-4.6); Lymphocytes % 8.9 %; Mean Corpuscular HGB Conc 33.1 g/dL (31.6-35.5); Mean Corpuscular Hemoglobin 29.4 pg (28.0-33.3); Mean Corpuscular Volume 88.7 fL (83.0-100.0); Mean Platelet Volume 10.4 fL (9.4-12.4); Monocytes # 0.6 K/mcL (0.0-1.3); Monocytes % 8.2 %; Neutrophils # 6.1 K/mcL (1.6-8.9); Platelet Count 158 K/mcL (140-400); Red Blood Count 3.88 M/mcL (4.19-5.50); Red Cell Distribution Width 15.1 % (11.5-14.5); Segmented Neutrophils % 78.2 %
[2018-10-12 20:21] LABS: Bilirubin,Urine Large (Negative); Blood,Urine Large (Negative); Clarity,Urine Turbid (Clear); Color,Urine Red (Yellow); Glucose,Urine (UA) Normal (Normal); Ketones,Urine 15 mg/dL (Negative); Leukocyte Esterase,Urine Large (Negative); Nitrite,Urine Positive (Negative); PH,Urine 7.5 pH Units (5.0-8.0); Protein,Urine >=1000 mg/dL (Neg-Trace); Specific Gravity,Urine 1.025 (1.010-1.025); Urobilinogen,Urine Normal (Normal)
[2018-10-12] MEDS ORDERED: *HR* FentaNYL (PF) 100 MCG/2 ML VIAL IVP ONE (20:30)
[2018-10-12 20:33] LABS: Albumin 2.7 g/dL (3.5-5.7); Albumin/Globulin Ratio 0.9 (1.1-2.2); Bilirubin,Direct 0.1 mg/dL (0.0-0.2); Bilirubin,Indirect 0.3 mg/dL (0.0-1.2); Bilirubin,Total 0.4 mg/dL (0.3-1.0); Calcium 8.6 mg/dL (8.6-10.3); Potassium 6.1 mEq/L (3.5-5.1); Total Protein 5.7 g/dL (6.4-8.9)
[2018-10-12 20:40] LABS: Troponin I 0.05 ng/mL (< 0.04)
[2018-10-12] MEDS ORDERED: Insulin Human Regular 10 UNIT in 0.9 % Sodium Chloride 10 ML IV ONE (20:44)
[2018-10-12] MEDS ORDERED: Albuterol Neb 7.5 MG, Sodium Chloride for inhalation 12 ML IH ONE (20:47)
[2018-10-12] MEDS ORDERED: *HR* Dextrose 50 % in Water (Syg) 50 ML SYRINGE IVP ONE (20:49)
[2018-10-12] MEDS ORDERED: CefTRIAXone 1,000 MG VIAL IM ONE (20:53)
--- NOTE | 2018-10-12 20:59 | Emergency Department Note ---
Disposition Clinical Impression: Hyperkalemia, ESRD (end stage renal disease) on dialysis, Noncompliance, COPD exacerbation Hematuria Qualifiers: Hematuria type: gross Qualified Code(s): R31.0 - Gross hematuria UTI (urinary tract infection) due to urinary indwelling catheter Qualifiers: Indwelling urinary catheter type: cystostomy catheter Encounter type: initial encounter Qualified Code(s): T83.510A - Infection and inflammatory reaction due to cystostomy catheter, initial encounter Chronic renal failure Qualifiers: Chronic kidney disease stage: unspecified stage Qualified Code(s): N18.9 - Chronic kidney disease, unspecified Inguinal hernia Qualifiers: Obstruction and gangrene presence: without obstruction or gangrene Laterality: unilateral Recurrence: recurrent Qualified Code(s): K40.91 - Unilateral inguinal hernia, without obstruction or gangrene, recurrent Disposition: Admitted As Inpatient Condition: Serious Referrals: NONE,PCP [Primary Care Provider] - Forms: ED Satisfaction Letter General Adult HPI - General Chief complaint: ED Shortness of Breath/Dyspnea Stated complaint: sob, blood in urine Time Seen by Provider: 10/12/18 18:54 Source: EMS Limitations: no limitations - History of Present Illness Pain Scale: 8 - Related Data Home Medications Medication Instructions Recorded Confirmed Sevelamer [Renvela] 2,400 mg PO TIDWM 04/25/17 08/03/18 Ergocalciferol (VITAMIN D2) 50,000 unit PO QWEEK 04/17/18 08/03/18 [Vitamin D2] Aspirin [Lo-Dose Aspirin EC] 81 mg PO DAILY 08/03/18 08/03/18 Metoprolol Succinate [Toprol Xl] 100 mg PO DAILY 08/03/18 08/03/18 Previous Rx's Medication Instructions Recorded Cefdinir [Omnicef] 300 mg PO BID #14 capsule 09/09/18 Albuterol Sulfate [Albuterol 2 puff IH Q6HR #1 hfa.aer.ad 10/08/18 Inhaler] predniSONE [PredniSONE] 60 mg PO DAILY #15 tablet 10/08/18 Allergies Allergy/AdvReac Type Severity Reaction Status Date / Time No Known Allergies Allergy Verified 09/09/18 13:48 Constitutional: Reports: fever, chills, weakness ENT ED: Reports: congestion Cardiovascular: Reports: edema (at baseline). Denies: chest pain, palpitations Respiratory: Reports: cough, dyspnea, wheezes, sputum production Gastrointestinal: Reports: diarrhea. Denies: abdominal pain, nausea, vomiting, constipation Genitourinary: Reports: hematuria. Denies: urgency, dysuria Neurological: Reports: headache, weakness Endocrine: Reports: fatigue Past Medical History - Past Medical History Medical history: Reports: cardiomyopathy, CHF, dialysis, hyperlipidemia, hypertension, liver disease, renal disease, other Surgical history: Reports: orthopedic, other, vascular surgery, other Psychiatric history: Reports: anxiety, depression - Social History Smoking Status: Current every day smoker Smokeless Tobacco Status: No Alcohol use: Reports: none Drug use: Reports: none Physical Exam - General Limitations: no limitations General appearance: alert, in no apparent distress, obese Course - Consultations Consultation #1: discussed case with Dr. Fierro and he accepts patinet to his service Time: 22:19 Vital Signs Temperature 98.2 F 10/12/18 18:56 Pulse Rate 87 10/12/18 18:56 Respiratory Rate 16 10/12/18 18:56 Blood Pressure 167/106 10/12/18 18:56 O2 Sat by Pulse Oximetry 98 10/12/18 18:56 Temperature 98.2 F 10/12/18 18:56 Pulse Rate 87 10/12/18 22:04 Respiratory Rate 19 10/12/18 22:04 Blood Pressure 151/98 10/12/18 22:04 O2 Sat by Pulse Oximetry 96 10/12/18 22:04 Oxygen Delivery Oxygen Delivery Aerosol Mask Medical Decision Making - Lab Data Result diagrams: 10/12/18 19:53 10/12/18 19:53 Lab Results 10/12/18 10/12/18 10/12/18 Range/Units 19:34 19:53 19:53 WBC 7.8 (4.3-11.1) K/mcL RBC 3.88 L (4.19-5.50) M/mcL Hgb 11.4 L (12.9-16.9) g/dL Hct 34.4 L (37.5-50.1) % MCV 88.7 (83.0-100.0) fL MCH 29.4 (28.0-33.3) pg MCHC 33.1 (31.6-35.5) g/dL RDW 15.1 H (11.5-14.5) % Plt Count 158 (140-400) K/mcL MPV 10.4 (9.4-12.4) fL Immature Gran % 0.5 (0-4) % Seg Neutrophils % 78.2 % Lymphocytes % 8.9 % Monocytes % 8.2 % Eosinophils % 3.7 % Basophils % 0.5 % Neutrophils # 6.1 (1.6-8.9) K/mcL Lymphocytes # 0.7 (0.6-4.6) K/mcL Monocytes # 0.6 (0.0-1.3) K/mcL Eosinophils # 0.3 (0.0-0.6) K/mcL Basophils # 0.0 (0.0-0.2) K/mcL Sodium 132 L (136-145) mEq/L Potassium 6.1 H (3.5-5.1) mEq/L Chloride 95 L (98-107) mEq/L Carbon Dioxide 21 L (23-29) mEq/L BUN 111 H (6-20) mg/dL Creatinine 16.33 H (0.70-1.30) mg/dL Est GFR ( Amer) 4 L (> 60) Est GFR (Non-Af Amer) 3 L (> 60) BUN/Creatinine Ratio 7 (6-26) Glucose 107 H (70-105) mg/dL Calculated Osmolality 310 H (280-300) Calcium 8.6 (8.6-10.3) mg/dL Total Bilirubin 0.4 (0.3-1.0) mg/dL Direct Bilirubin 0.1 (0.0-0.2) mg/dL Indirect Bilirubin 0.3 (0.0-1.2) mg/dL AST 7 L (13-39) Units/L ALT 5 L (7-52) Units/L Alkaline Phosphatase 128 H (34-104) Units/L Troponin I 0.05 H* (< 0.04) ng/mL B-Natriuretic Peptide (Less than 100) pg/mL Serum Total Protein 5.7 L (6.4-8.9) g/dL Albumin 2.7 L (3.5-5.7) g/dL Globulin 3.0 (2.4-3.5) g/dL Albumin/Globulin Ratio 0.9 L (1.1-2.2) Urine Color Red A (Yellow) Urine Clarity Turbid A (Clear) Urine pH 7.5 (5.0-8.0) pH Units Ur Specific Buckhorn 1.025 (1.010-1.025) Urine Protein >=1000 H (Neg-Trace) mg/dL Urine Glucose (UA) Normal (Normal) mg/dL Urine Ketones 15 H (Negative) mg/dL Urine Blood Large H (Negative) Urine Nitrite Positive A (Negative) Urine Bilirubin Large H (Negative) Urine Urobilinogen Normal (Normal) mg/dL Ur Leukocyte Esterase Large H (Negative) Ur Culture Indicated? YES A (NO) 10/12/18 Range/Units 19:53 WBC (4.3-11.1) K/mcL RBC (4.19-5.50) M/mcL Hgb (12.9-16.9) g/dL Hct (37.5-50.1) % MCV (83.0-100.0) fL MCH (28.0-33.3) pg MCHC (31.6-35.5) g/dL RDW (11.5-14.5) % Plt Count (140-400) K/mcL MPV (9.4-12.4) fL Immature Gran % (0-4) % Seg Neutrophils % % Lymphocytes % % Monocytes % % Eosinophils % % Basophils % % Neutrophils # (1.6-8.9) K/mcL Lymphocytes # (0.6-4.6) K/mcL Monocytes # (0.0-1.3) K/mcL Eosinophils # (0.0-0.6) K/mcL Basophils # (0.0-0.2) K/mcL Sodium (136-145) mEq/L Potassium (3.5-5.1) mEq/L Chloride (98-107) mEq/L Carbon Dioxide (23-29) mEq/L BUN (6-20) mg/dL Creatinine (0.70-1.30) mg/dL Est GFR ( Amer) (> 60) Est GFR (Non-Af Amer) (> 60) BUN/Creatinine Ratio (6-26) Glucose (70-105) mg/dL Calculated Osmolality (280-300) Calcium (8.6-10.3) mg/dL Total Bilirubin (0.3-1.0) mg/dL Direct Bilirubin (0.0-0.2) mg/dL Indirect Bilirubin (0.0-1.2) mg/dL AST (13-39) Units/L ALT (7-52) Units/L Alkaline Phosphatase (34-104) Units/L Troponin I (< 0.04) ng/mL B-Natriuretic Peptide 2440 H (Less than 100) pg/mL Serum Total Protein (6.4-8.9) g/dL Albumin (3.5-5.7) g/dL Globulin (2.4-3.5) g/dL Albumin/Globulin Ratio (1.1-2.2) Urine Color (Yellow) Urine Clarity (Clear) Urine pH (5.0-8.0) pH Units Ur Specific Buckhorn (1.010-1.025) Urine Protein (Neg-Trace) mg/dL Urine Glucose (UA) (Normal) mg/dL Urine Ketones (Negative) mg/dL Urine Blood (Negative) Urine Nitrite (Negative) Urine Bilirubin (Negative) Urine Urobilinogen (Normal) mg/dL Ur Leukocyte Esterase (Negative) Ur Culture Indicated? (NO) Attestation Statement - Attestation Attestation: I examined this patient and my medical decision-making was reviewed with the Resident Physician. I agree with the documented findings, disposition and treatment plan as described except to the extent set forth below. 33 year old male presents to the ED with complaints of dyspnea and states that he has missed his dialysis for three sessions and now he has elevated potassium and feels fluid overloaded. Carrie also has a hernia in the right inguinal area which is pinkish and with manual reduction is able to be reduced but comes right back out. Carrie has mild pain tot he area but it does not seem to be incarcerated or strangluated and not necrotic. Patient will be aditted to medicine. We have spoken with Dr. Wynne and she will do dialysis on him tomorrow morning and recommended hyperK therapy at this ttime.
[2018-10-12] MEDS ORDERED: cefTRIAXone 1,000 MG in Water for inj. (sterile) 20 ML 10 ML IVP ONE (21:42)
[2018-10-12] MEDS ORDERED: Albuterol 2.5 MG/3 ML NEBULIZER ONE (21:49)
[2018-10-12] MEDS ORDERED: Azithromycin 500 MG in D5% in Water 250 ML IVPB ONE (22:02)
[2018-10-13 03:35] LABS: Hematocrit 34.2 % (37.5-50.1); Hemoglobin 11.3 g/dL (12.9-16.9); Mean Corpuscular Hemoglobin 29.3 pg (28.0-33.3); Mean Corpuscular Volume 88.6 fL (83.0-100.0); Mean Platelet Volume 10.5 fL (9.4-12.4); Platelet Count 147 K/mcL (140-400); Red Blood Count 3.86 M/mcL (4.19-5.50)
[2018-10-13 03:55] LABS: Albumin 2.6 g/dL (3.5-5.7); Albumin/Globulin Ratio 0.9 (1.1-2.2); Bilirubin,Total 0.4 mg/dL (0.3-1.0); Calcium 8.6 mg/dL (8.6-10.3); Potassium 5.6 mEq/L (3.5-5.1); Total Protein 5.6 g/dL (6.4-8.9)
[2018-10-13] MEDS ORDERED: Naloxone 0.4 MG/ML INJ IVP PRN (04:43)
[2018-10-13] MEDS ORDERED: Ipratropium/Albuterol Neb 3 ML IH PRN (04:49)
[2018-10-13] MEDS ORDERED: Ondansetron 4 MG/2 ML VIAL IVP PRN (04:54)
--- NOTE | 2018-10-13 04:58 | Internal Med History&Physical ---
<Aram Acuña R - Last Filed: 10/13/18 06:22> Date of Encounter: 10/13/18 Time of Encounter: 04:10 Internal Medicine - H&P: HPI Chief complaint: hematuria, weakness Admitted From: Emergency Dept Plans for Post Hospital Care: Home History of present illness: Mr. Snyder is a 33 year old male with history significant for CHF, HTN, HLD, ESRD on Friday, , Friday dialysis. Presenting for evaluation of gross hematuria, generalized weakness, productive cough and worsening shortness of breath. He reports missing his last 3 hemodialysis appointments. Admits to relative noncompliance with his renal/cardiac diet. Recent discharge from emergency department for evaluation of gross hematuria with identified during tract infection, however patient did not flower picker antibiotics and is therefore no t completed course. Patient feels volume overloaded, with shortness of breath as well as lower extremity edema. He denies abdominal pain, nausea, vomiting, diarrhea, or change in bowels. He does endorse abdominal distention secondary to known ascites. No chest pain, palpitations, or dizziness. Evaluation in the emergency department did reveal hemoglobin of 11.4, potassium of 6.1, phosphorus of 10.5, BNP of 2400, troponin 0.05. Urinalysis is suggestive of urinary tract infection. CT abdomen and pelvis with findings of pulmonary nodules concerning for pneumonia as well as cirrhosis and ascites. Patient was given azithromycin and ceftriaxone in the emergency department as well as Kayexalate, insulin, albuterol, calcium for treatment of hyperkalemia. At the time of my evaluation patient does endorse some mild improvement in shortness of breath after receiving nebulized therapy. Continues to deny chest pain. No nausea or vomiting. Past Med Surg Social Fam HX - Past Medical History Medical history: cardiomyopathy, cirrhosis, CHF, COPD, dialysis, hyperlipidemia, hypertension, liver disease, renal disease, thyroid disease, venous stasis, other Additional medical history: ESRD w/ , , HD; anemia, hyperparathyroid, inguinal and umbilical hernia, suprapubic cath, hyperkalemia, ascites, pleural effusions, neurogenic bladder, pneumonia, peritonitis, cellulitis, UTIs. Psychiatric history: anxiety, depression - Past Surgical History Surgical History: orthopedic, other, vascular surgery Additional surgical history: suprapubic cath placement. fistula placement left AC - Social History Smoking Status: Current every day smoker Packs per day: 1 Smokeless Tobacco Status: No Alcohol use: none Drug use: none - Family History Mother Adopted: No Living Status: Still Living Hx Family Cardiac Disorders: Yes (Stroke) Hx Family Respiratory Disorders: No Hx Family Cancer: No Hx Family GI Disorders: No Hx Family Endocrine Disorder: Yes (DM) Hx Family Neuromuscular Disorders: No Hx Family Neurologic Disorders: No Hx Family HEENT Disorders: No Hx Family Autoimmune Disorders: No Father Living Status: Hx Family Cardiac Disorders: Yes (CAD) Hx Family Respiratory Disorders: No Hx Family Cancer: No Hx Family GI Disorders: No Hx Family Endocrine Disorder: Yes (Diabetes) Hx Family Neuromuscular Disorders: No Hx Family Neurologic Disorders: No Hx Family HEENT Disorders: No Hx Family Autoimmune Disorders: No Internal Medicine - H&P: Meds Sevelamer [Renvela] 2,400 mg PO TIDWM 04/25/17 [History] Ergocalciferol (VITAMIN D2) [Vitamin D2] 50,000 unit PO QWEEK 04/17/18 [History] Aspirin [Lo-Dose Aspirin EC] 81 mg PO DAILY 08/03/18 [History] Metoprolol Succinate [Toprol Xl] 100 mg PO DAILY 08/03/18 [History] Cefdinir [Omnicef] 300 mg PO BID #14 capsule 09/09/18 [Rx] Albuterol Sulfate [Albuterol Inhaler] 2 puff IH Q6HR #1 hfa.aer.ad 10/08/18 [Rx] predniSONE [PredniSONE] 60 mg PO DAILY #15 tablet 10/08/18 [Rx] Allergy/AdvReac Type Severity Reaction Status Date / Time No Known Allergies Allergy Verified 09/09/18 13:48 All Systems PM: A 10-system review of systems was performed and is negative for pertinent findings except as documented above in the HPI. - Constitutional Constitutional: weakness, no chills, no fever(s) - EENT Eyes: no change in vision, no diplopia Nose, mouth and throat: no dysphagia, no epistaxis, no neck pain - Cardiovascular Cardiovascular ROS IM: dyspnea on exertion, no chest pain, no lightheadedness, no palpitations - Respiratory Respiratory: cough, dyspnea on exertion, chest congestion, no hemoptysis, no wheezing - Gastrointestinal Gastrointestinal: bloating, no abdominal pain, no change in bowel habits, no diarrhea, no dysphagia, no hematemesis, no hematochezia, no melena, no nausea, no vomiting - Genitourinary Genitourinary ROS male: dysuria, hematuria, no flank pain - Musculoskeletal Musculoskeletal ROS IM: no numbness, no tingling - Integumentary Integumentary IM: no erythema, no rash - Neurological Neurological ROS: no confusion, no dizziness, no numbness, no tingling - Psychiatric Psychiatric: no anxiety, no depression - Hematologic/Lymphatic Hematologic/Lymphatic: no easy bleeding, no easy bruising - Constitutional Vitals: Temp Pulse Resp BP Pulse Ox 97.7 F 94 16 159/91 92 10/13/18 02:01 10/13/18 02:01 10/13/18 02:01 10/13/18 02:01 10/13/18 02:01 Exam: Gen.: Patient is sleeping, easily arousable, no apparent distress HEENT: Atraumatic, pupils PERRLA with EOMI, anicteric sclera, moist mucous membranes Neck: Soft, full range of motion, no lymphadenopathy Cardiovascular: Regular rate and rhythm, no murmurs present Respiratory: Bibasilar crackles, no wheezing or rhonchi Abdomen: Distended, nontender, no guarding or rigidity, positive bowel sounds, reducible right inguinal hernia Extremities: 2+ pitting edema of the bilateral lower extremities, evidence of chronic venous stasis Neuro: Alert and oriented to person, place, and situation. No focal deficits. Psych: Appropriate mood and affect, conversant Internal Med - H&P Results - Labs CBC & Chem 7: 10/13/18 03:22 10/13/18 03:22 Labs: Short CBC 10/12/18 10/13/18 Range/Units 19:53 03:22 WBC 7.8 6.5 (4.3-11.1) K/mcL Hgb 11.4 L 11.3 L (12.9-16.9) g/dL Hct 34.4 L 34.2 L (37.5-50.1) % Plt Count 158 147 (140-400) K/mcL Neutrophils # 6.1 (1.6-8.9) K/mcL BMP 10/12/18 10/13/18 19:53 03:22 Sodium 132 L 131 L Potassium 6.1 H 5.6 H Chloride 95 L 96 L Carbon Dioxide 21 L 16 L BUN 111 H 113 H Creatinine 16.33 H 17.46 H Glucose 107 H 199 H Calcium 8.6 8.6 Cardiac Enzymes 10/12/18 Range/Units 19:53 Troponin I 0.05 H* (< 0.04) ng/mL Liver Function 10/12/18 10/13/18 Range/Units 19:53 03:22 Total Bilirubin 0.4 0.4 (0.3-1.0) mg/dL Direct Bilirubin 0.1 (0.0-0.2) mg/dL AST 7 L 7 L (13-39) Units/L ALT 5 L 4 L (7-52) Units/L Alkaline Phosphatase 128 H 114 H (34-104) Units/L Albumin 2.7 L 2.6 L (3.5-5.7) g/dL Urine 10/12/18 Range/Units 19:34 Urine Color Red A (Yellow) Urine Clarity Turbid A (Clear) Urine pH 7.5 (5.0-8.0) pH Units Ur Specific Pauline 1.025 (1.010-1.025) Urine Protein >=1000 H (Neg-Trace) mg/dL Urine Glucose (UA) Normal (Normal) mg/dL - Impressions ITS Impressions Chest X-Ray 10/12/18 19:28 IMPRESSION: Borderline to mild cardiomegaly and interstitial prominence increased over prior study suggesting vascular congestion versus interstitial pneumonitis. D/ / Day Cardona MD / Day Cardona MD Interpreting Provider: Day Cardona MD Abdomen/Pelvis CT 10/12/18 19:40 IMPRESSION: Centrilobular nodules in the bilateral lower lobes, likely related to pneumonia. Suprapubic catheter decompressing urinary bladder which contains blood products. Liver cirrhosis with large ascites. Stable splenomegaly. Prominent right inguinal hernia containing mesenteric fat and ascites extending to the right scrotum, grossly stable. Small umbilical hernia containing mesenteric fat and ascites, decreased in size. Stable diffuse sclerosis of osseous structures, may be metabolic. D/ / Adam Lara MD / Adam Lara MD Interpreting Provider: Adam Lara MD - Assessment and plan (1) ESRD (end stage renal disease) on dialysis Current Visit: Yes Status: Acute Assessment and plan: ESRD with T, Th, Sat dialysis Missed past 3 HD appointments volume overloaded with edema and SOB Potassium of 6.1 > 5.6 Plan: Nephrology consult for AM dialysis Follow electrolytes and manage as indicated (2) Hyperkalemia Current Visit: Yes Status: Acute Assessment and plan: Hyperkalemia secondary to missed HD 6.1 on admission, down to 5.6 after kayexalate, insulin, albuterol Plan: Dialysis in the AM with nephrology Monitor electrolyte status this afternoon (3) UTI (urinary tract infection) due to urinary indwelling catheter Current Visit: Yes Status: Acute Assessment and plan: Gross hematuria with evidence of UTI on UA Prior UTI 08/2018, left untreated due to medication non-compliance Culture from 08/2018 with Pseudomonas and Klebsiella Plan: Urine sent for culture, follow for sensitivity Start on Zosyn 3.375 Q12H for pseudomonas coverage Blood cultures pending Qualifiers: Indwelling urinary catheter type: cystostomy catheter Encounter type: initial encounter Qualified Code(s): T83.510A - Infection and inflammatory reaction due to cystostomy catheter, initial encounter; N39.0 - Urinary tract infection, site not specified (4) Anemia Current Visit: Yes Status: Chronic Assessment and plan: Anemia with hemoglobin of 11.4, similar to prior Etiology likely ESRD and chronic disease No evidence of bleeding or blood loss Plan: Continue to follow h/h Qualifiers: Anemia type: due to chronic kidney disease Chronic kidney disease stage: on chronic dialysis Qualified Code(s): N18.6 - End stage renal disease; D63.1 - Anemia in chronic kidney disease; Z99.2 - Dependence on renal dialysis (5) CHF (congestive heart failure) Current Visit: Yes Status: Chronic Assessment and plan: CHF with worsening SOB secondary to volume overload Bibasilar crackles on exam with lower extremity pitting edema Last echocardiogram with EF 25-30% and moderate diastolic heart failure Plan: Monitor Is and O's 1.5 L fluid restriction HD with nephrology Cardiac/renal diet Continue metoprolol when pharmacy verifies dosage Qualifiers: Heart failure type: unspecified Heart failure chronicity: acute on chronic Qualified Code(s): I50.9 - Heart failure, unspecified (6) Hypertension Current Visit: No Status: Chronic Assessment and plan: Controlled, continue metoprolol once pharmacy dose verified. Qualifiers: Hypertension type: essential hypertension Qualified Code(s): I10 - Es sential (primary) hypertension (7) Cigarette smoker Current Visit: No Status: Chronic Assessment and plan: current daily smoker Provided cessation counciling (8) Cirrhosis of liver with ascites Current Visit: No Status: Chronic Assessment and plan: Cirrhosis with ascites Has required paracentesis in the past Plan: HD for volume overload Consider paracentesis for symptomatic relief if worsens. Qualifiers: Hepatic cirrhosis type: unspecified hepatic cirrhosis Qualified Code(s): K74.60 - Unspecified cirrhosis of liver (9) Dyspnea Current Visit: No Status: Acute Assessment and plan: Dyspnea secondary to volume overload and ESRD on HD Treat as above Qualifiers: Qualified Code(s): R06.00 - Dyspnea, unspecified (10) Community acquired pneumonia Current Visit: Yes Status: Acute Assessment and plan: Productive cough with sputum production and subjective fevers CT with basilar nodularity concerning for pneumonia Plan: Azithromycin x5 days Zosyn- de-escalate as appropriate. Qualifiers: Laterality: unspecified laterality Qualified Code(s): J18.9 - Pneumonia, u nspecified organism (11) Elevated troponin Current Visit: Yes Status: Acute Assessment and plan: Elevated troponin 0.05 Appears to be elevated chronically, likely secondary to CHF and volume overload No acute chest pain Plan: will trend troponin x3 (12) DVT prophylaxis Current Visit: No Status: Acute Assessment and plan: Heparin 5000 units Q8H - Time Spent With Patient Total time spent is greater than 50% in coordination of care (as documented) at patient's floor/unit and/or counseling patient: <Anjel Stinson Lisa - Last Filed: 10/13/18 07:40> Date of Encounter: 10/13/18 Internal Medicine - H&P: HPI History of present illness: Mr. Snyder is a 33 year old male All Systems PM: A 10-system review of systems was performed and is negative for pertinent findings except as documented above in the HPI. - Constitutional Vitals: Temp Pulse Resp BP Pulse Ox 97.7 F 94 16 159/91 92 10/13/18 02:01 10/13/18 02:01 10/13/18 02:01 10/13/18 02:01 10/13/18 02:01 Internal Med - H&P Results - Labs CBC & Chem 7: 10/13/18 03:22 10/13/18 03:22 Labs: Short CBC 10/12/18 10/13/18 Range/Units 19:53 03:22 WBC 7.8 6.5 (4.3-11.1) K/mcL Hgb 11.4 L 11.3 L (12.9-16.9) g/dL Hct 34.4 L 34.2 L (37.5-50.1) % Plt Count 158 147 (140-400) K/mcL Neutrophils # 6.1 (1.6-8.9) K/mcL BMP 10/12/18 10/13/18 19:53 03:22 Sodium 132 L 131 L Potassium 6.1 H 5.6 H Chloride 95 L 96 L Carbon Dioxide 21 L 16 L BUN 111 H 113 H Creatinine 16.33 H 17.46 H Glucose 107 H 199 H Calcium 8.6 8.6 Cardiac Enzymes 10/12/18 10/13/18 Range/Units 19:53 06:52 Troponin I 0.05 H* 0.04 H* (< 0.04) ng/mL Liver Function 10/12/18 10/13/18 Range/Units 19:53 03:22 Total Bilirubin 0.4 0.4 (0.3-1.0) mg/dL Direct Bilirubin 0.1 (0.0-0.2) mg/dL AST 7 L 7 L (13-39) Units/L ALT 5 L 4 L (7-52) Units/L Alkaline Phosphatase 128 H 114 H (34-104) Units/L Albumin 2.7 L 2.6 L (3.5-5.7) g/dL Urine 10/12/18 Range/Units 19:34 Urine Color Red A (Yellow) Urine Clarity Turbid A (Clear) Urine pH 7.5 (5.0-8.0) pH Units Ur Specific Pauline 1.025 (1.010-1.025) Urine Protein >=1000 H (Neg-Trace) mg/dL Urine Glucose (UA) Normal (Normal) mg/dL - Impressions ITS Impressions Chest X-Ray 10/12/18 19:28 IMPRESSION: Borderline to mild cardiomegaly and interstitial prominence increased over prior study suggesting vascular congestion versus interstitial pneumonitis. D/ / Day Cardona MD / Day Cardona MD Interpreting Provider: Day Cardona MD Abdomen/Pelvis CT 10/12/18 19:40 IMPRESSION: Centrilobular nodules in the bilateral lower lobes, likely related to pneumonia. Suprapubic catheter decompressing urinary bladder which contains blood products. Liver cirrhosis with large ascites. Stable splenomegaly. Prominent right inguinal hernia containing mesenteric fat and ascites extending to the right scrotum, grossly stable. Small umbilical hernia containing mesenteric fat and ascites, decreased in size. Stable diffuse sclerosis of osseous structures, may be metabolic. D/ / Adam Lara MD / Adam Lara MD Interpreting Provider: Adam Lara MD - Time Spent With Patient Total time spent is greater than 50% in coordination of care (as documented) at patient's floor/unit and/or counseling patient: - Attending Attestation I saw and evaluated the patient. I reviewed the residents note, performed my own physical examination and agree with findings and plan as documented in the residents note. Patient seen and examined on 10/13/18. Patient has multiple symptoms secondary to missing 3 dialysis appointments last week. Consulted nephrology, will need dialysis. Potassium trending down.
[2018-10-13] MEDS: Piperacillin/Tazobactam 3.375 GM in 0.9 % Sodium Chloride Mini Bag 100 ML IVPB SCH ×2 (05:16→17:08)
[2018-10-13] MEDS: *HR* Heparin 5,000 UNIT/ML VIAL SQ SCH ×3 (06:02→20:38)
[2018-10-13] MEDS ORDERED: 0.9 % Sodium Chloride 2,000 ML ONE (07:20)
[2018-10-13 07:41] LABS: Hepatitis B Surface Antibody 7.39 mIU/mL
[2018-10-13 07:51] LABS: Hepatitis B Surface Antigen Nonreactive (Nonreactive)
[2018-10-13] MEDS ORDERED: 0.9 % Sodium Chloride 250 ML IVC PRN (08:20)
[2018-10-13] MEDS ORDERED: *HR* Heparin 10,000 UNIT/10 ML VIAL IV PRN (08:20)
[2018-10-13] MEDS ORDERED: 0.9 % Sodium Chloride 1,000 ML PRIME SCH (08:30)
[2018-10-13] MEDS: Aspirin Enteric Coated 81 MG Tablet PO SCH (09:45)
[2018-10-13] MEDS: Azithromycin 250 MG TABLET PO SCH (09:45)
--- NOTE | 2018-10-13 13:01 | Event Note ---
Date of Encounter: 10/13/18 Time of Encounter: 10:00 H&P reviewed. 33-year-old male with history of ESRD and cirrhosis is admitted for gross hematuria in the setting of partial treatment for UTI. Previous urine culture grew Pseudomonas and Klebsiella and was sent home on oral Omnicef on 09/11 but was not able to pattern duplicator his medications due to insurance issues. Hematuria resolving on Zosyn. We will also add azithromycin for bilateral centrilobular nodules which appears to be related to pneumonia. K 6 -> 5.6, missed 3 sessions of HD, for HD today and follow with nephrology.
--- NOTE | 2018-10-13 13:46 | Nephrology Consult Note ---
Date of Encounter: 10/13/18 Time of Encounter: 09:25 Assessment and Plan (1) ESRD (end stage renal disease) on dialysis Current Visit: Yes Status: Acute ESRD status known to nephrology. Sees Dr. Wynne outpatient for ESRD, TTS dialysis via IV Fistula on L UE, usually 5 hours treatment, for past roughly 5 years. BUN 111 -> 113 Cr 16.33 -> 17.46 GFR 3 -> 3 bicarb 21 -> 16 Potassium 6.1 -> 5.6 Phosphate 10.5 today BNP 2440 yesterday Troponin 0.05 -> 0.04 Mr. Snyder missed three dialysis appointments last week which resulted in significant uremia, elevated potassium, and his fluid overload status (short of breath upon examination and affirmed in ROS, edematous, significant abdominal distension noted on exam). He was seen during dialysis today with the intent of taking 5000 mL off today. Continue dialysis tomorrow and potentially and Friday if his hospital course continues through those days. Continue fluid restriction, monitor strict I&Os & renal function panel, avoid nephrotoxins, renally dose medications. (2) Hyperkalemia Current Visit: Yes Status: Acute Patient presented with hyperkalemia likely secondary to 3 missed dialysis appointments. K+ 6.1 -> 5.6 s/p kayexalate, insulin and albuterol administration. Patient was seen this morning during dialysis and will be receiving dialysis again tomorrow. Continue monitoring electrolyte status. (3) UTI (urinary tract infection) due to urinary indwelling catheter Current Visit: Yes Status: Acute Patient has suprapubic catheter placed, and rhea hematuria was noted in catheter. UA showed large amounts of RBCs in blood, positive nitrites, large amounts of leukocyte esterase which indicates urinary tract infection. Patient was previously admitted for UTI in 08/2018 but did not fill outpatient prescription to treat UTI; therefore it has persisted. Current cultures pending, previous culture 08/2018 positive for Pseudomonas and Klebsiella so currently being treated with Zosyn by primary team for Pseudomonas coverage. Qualifiers: Indwelling urinary catheter type: cystostomy catheter Encounter type: initial encounter Qualified Code(s): T83.510A - Infection and inflammatory reaction due to cystostomy catheter, initial encounter; N39.0 - Urinary tract infection, site not specified (4) Anemia Current Visit: Yes Status: Chronic Hemoglobin 11.4 -> 11.3 Likely anemia of chronic disease with ESRD component. Continue monitoring H&H. Qualifiers: Anemia type: due to chronic kidney disease Chronic kidney disease stage: on chronic dialysis Qualified Code(s): N18.6 - End stage renal disease; D63.1 - Anemia in chronic kidney disease; Z99.2 - Dependence on renal dialysis (5) Hypertension Current Visit: No Status: Chronic Blood pressure is noted to be 151/92 at 0814 10/13/18 prior to dialysis; most recently at 1250 10/13/18 noted to be 139/79. Patient takes Toprol XL at home, continue toprol when med rec is complete. Continue to monitor vitals. Qualifiers: Hypertension type: essential hypertension Qualified Code(s): I10 - Essential (primary) hypertension (6) CHF (congestive heart failure) Current Visit: Yes Status: Chronic Patient has congestive heart failure longstanding, patient has worsening shortness of breath likely secondary to his volume overload from 3 missed dialysis appointments last week. LVEF 25-30% noted on echo 02/11/18, diastolic dysfunction noted as well. Continue 1.5L fluid restriction as well as dialysis today and tomorrow to reduce fluid overload. Monitor strict I&O, continue cardio/renal diet. Continue toprol. Qualifiers: Heart failure type: unspecified Heart failure chronicity: acute on chronic Qualified Code(s): I50.9 - Heart failure, unspecified (7) Elevated troponin Current Visit: Yes Status: Acute Troponin I 0.05 -> 0.04 Elevated troponin likely secondary to CHF and CKD as well as volume overload. Patient denies any chest pain or palpitations. Continue trending troponin for total x3. History of Present Illness - Reason for Consult Consult date: 10/13/18 end stage renal disease Requesting physician: Johnathon Davis [facility] - Chief Complaint Hematuria, weakness, SOB, productive cough - History of Present Illness Mr. Snyder is a 33 year old male who is known to this service seen bedside during dialysis with CC "hematuria, weakness, shortness of breath, productive cough" with PMH of CHF, HTN, HLD and ESRD. He reports missing the last week of dialysis (TTS schedule, missed all three days last week) due to insurance and transportation issues, and notes noncompliance with renal/cardiac diet. He notes that he has feels that he is carrying more fluid than baseline today. He admits for the past week he has had fever, chills, shortness of breath, productive cough, wheeze, crampy abdominal pain when going to bathroom, diarrhea, and blood in urine; he denies chest pain, palpitations, frothy urine, burning upon urination (suprapubic catheter placed). Past Med Surg Social Fam HX - Past Medical History Medical history: cardiomyopathy, cirrhosis, CHF, COPD, dialysis, hyperlipidemia, hypertension, liver disease, renal disease, thyroid disease, venous stasis, other Additional medical history: ESRD w/ T, TH, SA HD; anemia, hyperparathyroid, inguinal and umbilical hernia, suprapubic cath, hyperkalemia, ascites, pleural effusions, neurogenic bladder, pneumonia, peritonitis, cellulitis, UTIs. Psychiatric history: anxiety, depression - Past Surgical History Surgical History: orthopedic, other, vascular surgery Additional surgical history: suprapubic cath placement. fistula placement left AC - Social History Smoking Status: Current every day smoker Packs per day: 1 Smokeless Tobacco Status: No Alcohol use: none Drug use: none - Family History Mother Adopted: No Living Status: Still Living Hx Family Cardiac Disorders: Yes (Stroke) Hx Family Respiratory Disorders: No Hx Family Cancer: No Hx Family GI Disorders: No Hx Family Endocrine Disorder: Yes (DM) Hx Family Neuromuscular Disorders: No Hx Family Neurologic Disorders: No Hx Family HEENT Disorders: No Hx Family Autoimmune Disorders: No Father Living Status: Hx Family Cardiac Disorders: Yes (CAD) Hx Family Respiratory Disorders: No Hx Family Cancer: No Hx Family GI Disorders: No Hx Family Endocrine Disorder: Yes (Diabetes) Hx Family Neuromuscular Disorders: No Hx Family Neurologic Disorders: No Hx Family HEENT Disorders: No Hx Family Autoimmune Disorders: No Medications and Allergies Sevelamer [Renvela] 2,400 mg PO TIDWM 04/25/17 [History] Ergocalciferol (VITAMIN D2) [Vitamin D2] 50,000 unit PO QWEEK 04/17/18 [History] Aspirin [Lo-Dose Aspirin EC] 81 mg PO DAILY 08/03/18 [History] Metoprolol Succinate [Toprol Xl] 100 mg PO DAILY 08/03/18 [History] Albuterol Sulfate [Albuterol Inhaler] 2 puff IH Q6HR #1 [email or web address] 10/08/18 [Rx] Allergy/AdvReac Type Severity Reaction Status Date / Time No Known Allergies Allergy Verified 10/13/18 13:19 Review of Systems Constitutional: as per HPI Exam - Vital Signs Vital signs: Initial Vital Signs Temp Pulse Resp BP Pulse Ox 98.2 F 87 16 167/106 98 10/12/18 18:56 10/12/18 18:56 10/12/18 18:56 10/12/18 18:56 10/12/18 18:56 Vital Signs - Last 8 Hours Temp Pulse Resp BP Pulse Ox 10/13/18 12:50 98.2 F 17 139/79 10/13/18 12:30 132/86 10/13/18 12:15 157/95 10/13/18 12:00 162/93 10/13/18 11:45 164/106 10/13/18 11:30 158/95 10/13/18 11:15 172/102 10/13/18 11:00 159/95 10/13/18 10:45 161/95 10/13/18 10:30 147/105 10/13/18 10:15 175/98 10/13/18 10:00 155/102 10/13/18 09:45 163/109 10/13/18 09:30 170/104 10/13/18 09:15 173/104 10/13/18 09:00 169/118 10/13/18 08:45 169/105 10/13/18 08:30 98 F 21 169/107 10/13/18 08:14 97.9 F 80 18 151/92 94 Intake and Output 10/12/18 10/13/18 10/13/18 23:59 07:59 15:59 Intake Total 360 / 360 600 / 600 Output Total 5600 / 5600 Balance 360 / 360 -5000 / -5000 Intake: IV Fluids 360 / 360 Zithromax 500 mg In Dextrose 5% 250 / 250 250 ML @ 252 mls/hr IVPB ONCE ONE Rx#:[id number] Calcium Gluconate 1,000 MG In 0 110 / 110 .9 % Sodium Chloride 100 ML @ 220 mls/hr IVPB ONCE ONE Rx#: [id number] Oral 0 / 0 Intake, Rinseback and Flushes 600 / 600 Output: Urine 0 / 0 Total Dialysis (HD) Output 5600 / 5600 Other: Weight 163.6 kg Blood Glucose* 151 Hemodialysis Net Fluid Removed 5000 (mL) - General Appearance Exam: General: AAO, nontoxic, no acute distress HEENT: normocephalic, atraumatic, mucus membranes moist CV: RRR, S1 and S2 present, no murmurs noted, 2+ pitting edema noted on BLE Resp: bibasilar crackles, no wheezing or rhonchi noted Abdomen: soft, nontender, distended, no guarding. Bowel sounds present Neuro: A&Ox3, no focal deficits Psych: appropriate mood and behavior Results - Lab Results 10/13/18 03:22 10/13/18 03:22 Most recent lab results Calcium 8.6 mg/dL (8.6-10.3) 10/13/18 03:22 Phosphorus 10.5 mg/dL (2.7-4.5) H 10/13/18 03:22 Consult Discharge Plan - Plan Referrals: NONE,PCP [Primary Care Provider] -
[2018-10-13] MEDS: Acetaminophen 325 MG TABLET PO PRN (15:10)
--- NOTE | 2018-10-13 18:38 | Electrocardiograph Report ---
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
[2018-10-14] MEDS: Acetaminophen 325 MG TABLET PO PRN ×2 (01:35→20:35)
[2018-10-14] MEDS: *HR* Heparin 5,000 UNIT/ML VIAL SQ SCH ×3 (03:19→20:28)
[2018-10-14 04:21] LABS: Basophils % 0.1 %; Eosinophils % 0.3 %; Hematocrit 34.8 % (37.5-50.1); Hemoglobin 11.7 g/dL (12.9-16.9); Immature Granulocytes % 0.7 % (0-4); Lymphocytes # 0.9 K/mcL (0.6-4.6); Mean Corpuscular HGB Conc 33.6 g/dL (31.6-35.5); Mean Corpuscular Hemoglobin 29.4 pg (28.0-33.3); Mean Corpuscular Volume 87.4 fL (83.0-100.0); Mean Platelet Volume 10.4 fL (9.4-12.4); Monocytes # 0.6 K/mcL (0.0-1.3); Monocytes % 6.6 %; Neutrophils # 7.2 K/mcL (1.6-8.9); Platelet Count 179 K/mcL (140-400); Red Blood Count 3.98 M/mcL (4.19-5.50); Red Cell Distribution Width 14.9 % (11.5-14.5); Segmented Neutrophils % 82.3 %
[2018-10-14 04:39] LABS: Calcium 8.9 mg/dL (8.6-10.3); Phosphorous 9.3 mg/dL (2.7-4.5)
[2018-10-14] MEDS: Piperacillin/Tazobactam 3.375 GM in 0.9 % Sodium Chloride Mini Bag 100 ML IVPB SCH ×2 (05:10→17:18)
[2018-10-14] MEDS: Aspirin Enteric Coated 81 MG Tablet PO SCH (08:08)
[2018-10-14] MEDS: Azithromycin 250 MG TABLET PO SCH (08:08)
[2018-10-14] MEDS ORDERED: *HR* Heparin 10,000 UNIT/10 ML VIAL IV PRN (08:26)
[2018-10-14] MEDS ORDERED: 0.9 % Sodium Chloride 250 ML IVC PRN (08:26)
[2018-10-14] MEDS ORDERED: 0.9 % Sodium Chloride 1,000 ML PRIME SCH (08:30)
--- NOTE | 2018-10-14 11:04 | Internal Med Progress Note ---
Hospitalist Progress Note - Encounter Date of Encounter: 10/14/18 Time of Encounter: 08:00 - Subjective Interval History: Resolving hematuria. More comfortable with breathing after HD as well. Denies nausea/vomiting. No fever/chills - Exam Vitals: Temp Pulse Resp BP Pulse Ox 97.8 F 88 20 146/89 96 10/14/18 06:47 10/14/18 06:47 10/14/18 06:47 10/14/18 09:11 10/14/18 06:47 Exam: Gen.: not in apparent distress Cardiovascular: Regular rate and rhythm, no murmurs present Respiratory: Bibasilar crackles, no wheezing or rhonchi Abdomen: Distended but soft, nontender, no guarding or rigidity. : suprapubic catheter draining blood-tinged urine. Extremities: 2+ pitting edema of the bilateral lower extremities, evidence of chronic venous stasis Neuro: Alert and oriented to person, place, and situation. No focal deficits. - Assessment and Plan (1) UTI (urinary tract infection) due to urinary indwelling catheter Current Visit: Yes Status: Acute Assessment and Plan: Gross hematuria with evidence of UTI on UA Prior UTI 08/2018, left untreated due to inability to afford medication Culture from 08/2018 with Pseudomonas and Klebsiella started on zosyn with improvement in hematuria, continue follow up on urine culture (2) Community acquired pneumonia Current Visit: Yes Status: Acute Assessment and Plan: CT with centrilobular nodularity concerning for pneumonia zosyn as above, continue azithromycin for atypical coverage (3) ESRD (end stage renal disease) on dialysis Current Visit: Yes Status: Acute Assessment and Plan: ESRD with T, Th, Sat dialysis, missed past 3 HD appointments volume overloaded with edema and SOB, associated with hyperkalemia nephrology input appreciated, HD Today and tomorrow (4) Hyperkalemia Current Visit: Yes Status: Acute Assessment and Plan: as above (5) Cirrhosis of liver with ascites Current Visit: No Status: Chronic Assessment and Plan: Cirrhosis with ascites Has required paracentesis in the past, follow up outpatient (6) Hypertension Current Visit: No Status: Chronic Assessment and Plan: resume bb PRN labetalol (7) Cigarette smoker Current Visit: No Status: Chronic Assessment and Plan: current daily smoker Provided cessation counseling (8) Elevated troponin Current Visit: Yes Status: Acute Assessment and Plan: Elevated troponin 0.05 -> 0.04 no signs and symptoms of angina or concerning EKG changes Appears to be elevated chronically, can also be attributed to type II event secondary to volume overload with missed HD as well as PNA (9) DVT prophylaxis Current Visit: No Status: Acute Assessment and Plan: Heparin 5000 units Q8H - Time Spent with Patient Total time spent is greater than 50% in coordination of care (as documented) at patient's floor/unit and/or counseling patient: Plan of Care Discussed with: patient (discussed with nephrology as well) Internal Medicine: Result - Labs CBC & Chem 7: 10/14/18 03:10 10/14/18 03:10 Labs: Short CBC 10/14/18 Range/Units 03:10 WBC 8.7 (4.3-11.1) K/mcL Hgb 11.7 L (12.9-16.9) g/dL Hct 34.8 L (37.5-50.1) % Plt Count 179 (140-400) K/mcL Neutrophils # 7.2 (1.6-8.9) K/mcL BMP 10/14/18 03:10 Sodium 136 Potassium 5.0 Chloride 96 L Carbon Dioxide 21 L BUN 74 H Creatinine 12.59 H Glucose 119 H Calcium 8.9 Consult Discharge Plan - Plan Referrals: NONE,PCP [Primary Care Provider] - (1) UTI (urinary tract infection) due to urinary indwelling catheter Qualifiers: Indwelling urinary catheter type: cystostomy catheter Encounter type: initial encounter Qualified Code(s): T83.510A - Infection and inflammatory reaction due to cystostomy catheter, initial encounter; N39.0 - Urinary tract infection, site not specified (2) Community acquired pneumonia Qualifiers: Laterality: unspecified laterality Qualified Code(s): J18.9 - Pneumonia, unspecified organism (5) Cirrhosis of liver with ascites Qualifiers: Hepatic cirrhosis type: unspecified hepatic cirrhosis Qualified Code(s): K74.60 - Unspecified cirrhosis of liver (6) Hypertension Qualifiers: Hypertension type: essential hypertension Qualified Code(s): I10 - Essential (primary) hypertension
--- NOTE | 2018-10-14 12:40 | Nephrology Progress Note ---
Date of Encounter: 10/14/18 Time of Encounter: 09:45 - Assessment and Plan (1) ESRD (end stage renal disease) on dialysis Current Visit: Yes Status: Acute ESRD status known to nephrology. Sees Dr. Wynne outpatient for ESRD, TTS dialysis via IV Fistula on L UE, usually 5 hours treatment, for past roughly 5 years. BUN 111 -> 113 -> 74 Cr 16.33 -> 17.46 -> 12.59 GFR 3 -> 3 -> 5 bicarb 21 -> 16 -> 21 Potassium 6.1 -> 5.6 -> 5.0 Phosphate 10.5 -> 9.3 BNP 2440 10/12/18 Troponin 0.05 -> 0.04 Mr. Snyder missed three dialysis appointments last week which resulted in significant uremia, elevated potassium, and his fluid overload status (short of breath upon examination and affirmed in ROS, edematous, significant abdominal distension noted on exam). He was seen during dialysis yesterday and had 5000 mL of fluid removed. He is currently being dialyzed today (with the intent of removing 4000 mL of fluid) and potentially and Friday if his hospital course continues through those days. Continue fluid restriction, monitor strict I&Os & renal function panel, avoid nephrotoxins, renally dose medications. (2) Hyperkalemia Current Visit: Yes Status: Acute Patient presented with hyperkalemia likely secondary to 3 missed dialysis appointments. Kayexalate, insulin and albuterol given 10/12/18 as well as dialysis yesterday removed 5000 mL fluid. K+ 6.1 -> 5.6 -> 5.0 Patient was seen this morning during dialysis, received dialysis yesterday and will likely be receiving dialysis again tomorrow. Continue monitoring electrolyte status. (3) UTI (urinary tract infection) due to urinary indwelling catheter Current Visit: Yes Status: Acute Patient has suprapubic catheter placed, and rhea hematuria was noted in catheter. UA showed large amounts of RBCs in blood, positive nitrites, large amounts of leukocyte esterase which indicates urinary tract infection. Patient was previously admitted for UTI in 08/2018 but did not fill outpatient prescription to treat UTI; therefore it has persisted. Current cultures pending, previous culture 08/2018 positive for Pseudomonas and Klebsiella so currently being treated with Zosyn by primary team for Pseudomonas coverage. Qualifiers: Indwelling urinary catheter type: cystostomy catheter Encounter type: init ial encounter Qualified Code(s): T83.510A - Infection and inflammatory re action due to cystostomy catheter, initial encounter; N39.0 - Urinary tract infection, site not specified (4) Anemia Current Visit: Yes Status: Chronic Hemoglobin 11.4 -> 11.3 -> 11.7 Likely anemia of chronic disease with ESRD component. Continue monitoring H&H. Qualifiers: Anemia type: due to chronic kidney disease Chronic kidney disease stage: on chronic dialysis Qualified Code(s): N18.6 - End stage renal disease; D63.1 - Anemia in chronic kidney disease; Z99.2 - Dependence on renal dialysis (5) Hypertension Current Visit: No Status: Chronic Blood pressure is noted to be 174/111 at 0647 10/14/18 prior to dialysis; most recently at 181/114 at 1000 10/14/18. Patient takes Toprol XL at home, continue toprol. Continue to monitor vitals. Qualifiers: Hypertension type: essential hypertension Qualified Code(s): I10 - Essential (primary) hypertension (6) CHF (congestive heart failure) Current Visit: Yes Status: Chronic Patient has congestive heart failure longstanding, patient has worsening shortness of breath likely secondary to his volume overload from 3 missed dialysis appointments last week. LVEF 25-30% noted on echo 02/11/18, diastolic dysfunction noted as well. Continue 1.5L fluid restriction as well as dialysis today and tomorrow to reduce fluid overload. Monitor strict I&O, continue cardio/renal diet. Continue toprol. Qualifiers: Heart failure type: unspecified Heart failure chronicity: acute on chronic Qualified Code(s): I50.9 - Heart failure, unspecified (7) Elevated troponin Current Visit: Yes Status: Acute Troponin I 0.05 -> 0.04 Elevated troponin likely secondary to CHF and CKD as well as volume overload. Patient denies any chest pain or palpitations. Continue trending troponin for total x3. Subjective Principal diagnosis: hematuria, weakness, SOB, productive cough Interval history: Mr. Snyder is a 33 year old male who is known to this service seen bedside during dialysis on hospital day 2 with CC "hematuria, weakness, shortness of breath, productive cough" with PMH of CHF, HTN, HLD and ESRD. He notes that he feels better today than yesterday after his dialysis yesterday. He admits for the past week he has had fever, chills, shortness of breath, productive cough, wheeze, crampy abdominal pain when going to bathroom, diarrhea, and blood in urine; he denies chest pain, palpitations, frothy urine, burning upon urination (suprapubic catheter placed). He notes that today he feels better but his stomach is still distended. Objective - Vital Signs Vital signs: Vital Signs Temp Pulse Resp BP Pulse Ox 10/14/18 10:00 98 F 21 181/114 10/14/18 09:11 146/89 10/14/18 06:47 97.8 F 88 20 174/111 96 10/13/18 23:47 97.7 F 106 18 167/104 96 10/13/18 19:52 97.9 F 90 17 148/109 93 10/13/18 15:32 97.5 F L 87 18 152/93 95 10/13/18 12:50 98.2 F 17 139/79 Intake and Output 10/13/18 10/14/18 10/14/18 23:59 07:59 15:59 Intake Total 100 / 100 600 / 600 Output Total 0 / 0 Balance 100 / 100 600 / 600 Intake: IV Fluids 100 / 100 Zosyn 3.375 GM In 0.9 % Sodium 100 / 100 Chloride (Mini-Bag +) 100 ML @ 25 mls/hr IVPB Q12HR [facility] Rx#: [id number] Oral 0 / 0 Intake, Rinseback and Flushes 600 / 600 Output: Urine 0 / 0 Other: Weight 165.4 kg Hemodialysis Net Fluid Removed 0 (mL) - General Appearance Exam: General: AAO, nontoxic, no acute distress HEENT: normocephalic, atraumatic, mucus membranes moist CV: RRR, S1 and S2 present, no murmurs noted, 2+ pitting edema noted on BLE Resp: bibasilar crackles, no wheezing or rhonchi noted Abdomen: soft, nontender, distended, no guarding. Bowel sounds present Neuro: A&Ox3, no focal deficits Psych: appropriate mood and behavior - Lab 10/14/18 03:10 10/14/18 03:10 Most recent lab results Calcium 8.9 mg/dL (8.6-10.3) 10/14/18 03:10 Phosphorus 9.3 mg/dL (2.7-4.5) H 10/14/18 03:10 Consult Discharge Plan - Plan Referrals: NONE,PCP [Primary Care Provider] -
[2018-10-14] MEDS: Metoprolol XL (24 HR) Succ 50 MG TAB.ER.24H PO SCH (14:14)
[2018-10-14] MEDS: Ciprofloxacin/Dex *EAR* Susp 7.5 ML BOTTLE RIGHT EAR SCH (20:27)
[2018-10-15] MEDS: *HR* Labetalol 20 MG/4 ML SYRINGE IVP PRN ×3 (00:53→08:12)
[2018-10-15] MEDS: *HR* Heparin 5,000 UNIT/ML VIAL SQ SCH (01:40)
[2018-10-15] MEDS: Piperacillin/Tazobactam 3.375 GM in 0.9 % Sodium Chloride Mini Bag 100 ML IVPB SCH (04:59)
[2018-10-15 06:08] LABS: Basophils # 0.1 K/mcL (0.0-0.2); Basophils % 0.7 %; Eosinophils # 0.2 K/mcL (0.0-0.6); Eosinophils % 2.4 %; Hematocrit 36.9 % (37.5-50.1); Immature Granulocytes % 0.9 % (0-4); Lymphocytes # 1.1 K/mcL (0.6-4.6); Mean Corpuscular HGB Conc 32.5 g/dL (31.6-35.5); Mean Corpuscular Hemoglobin 29.2 pg (28.0-33.3); Mean Corpuscular Volume 89.8 fL (83.0-100.0); Mean Platelet Volume 9.7 fL (9.4-12.4); Monocytes # 0.6 K/mcL (0.0-1.3); Monocytes % 6.6 %; Neutrophils # 7.5 K/mcL (1.6-8.9); Platelet Count 169 K/mcL (140-400); Red Blood Count 4.11 M/mcL (4.19-5.50); Red Cell Distribution Width 15.1 % (11.5-14.5); Segmented Neutrophils % 78.4 %
[2018-10-15] MEDS ORDERED: 0.9 % Sodium Chloride 2,000 ML ONE (06:23)
[2018-10-15 06:30] LABS: Calcium 8.8 mg/dL (8.6-10.3); Phosphorous 7.9 mg/dL (2.7-4.5); Potassium 4.4 mEq/L (3.5-5.1)
[2018-10-15] MEDS: Metoprolol XL (24 HR) Succ 50 MG TAB.ER.24H PO SCH (08:08)
[2018-10-15] MEDS: Aspirin Enteric Coated 81 MG Tablet PO SCH (08:08)
[2018-10-15] MEDS: Azithromycin 250 MG TABLET PO SCH (08:09)
[2018-10-15] MEDS: Ciprofloxacin/Dex *EAR* Susp 7.5 ML BOTTLE RIGHT EAR SCH (08:09)
--- NOTE | 2018-10-15 08:59 | Nephrology Progress Note ---
Date of Encounter: 10/15/18 Time of Encounter: 08:51 - Assessment and Plan (1) ESRD (end stage renal disease) on dialysis Current Visit: Yes Status: Acute Plan for dialysis today Patient is grossly non-compliant with HD treatments, renal diet, medications, and fluid restrictions Has not been to his outpatient dialysis unit for some time due to "no trans portation"; however the staff has given him paperwork to complete that would get him transportation but patient will not fill it out. Avoid nephrotoxins if possible (2) UTI (urinary tract infection) due to urinary indwelling catheter Current Visit: Yes Status: Acute per primary team Qualifiers: Indwelling urinary catheter type: cystostomy catheter Encounter type: initial encounter Qualified Code(s): T83.510A - Infection and inflammatory reaction due to cystostomy catheter, initial encounter; N39.0 - Urinary tract infection, site not specified (3) Hyperphosphatemia Current Visit: No Status: Acute Phos 7.9-better than normal since he has been receiving a renal diet and his binders here in hospital Does not take his binders as prescribed or follow a renal diet at home Subjective Principal diagnosis: hematuria, weakness, SOB, productive cough Interval history: Patient seen and examined. States he is feeling much better; believes he is being discharged today Objective - Vital Signs Vital signs: Vital Signs Temp Pulse Resp BP Pulse Ox 10/15/18 07:07 98.1 F 80 17 174/120 95 10/15/18 04:48 98.2 F 84 16 163/115 91 10/15/18 01:35 91 165/98 10/15/18 00:43 98.7 F 76 19 173/117 95 10/14/18 20:24 98.4 F 96 18 164/110 92 10/14/18 17:34 97.8 F 82 20 168/105 97 10/14/18 14:13 155/101 10/14/18 13:20 98.2 F 17 153/98 10/14/18 13:00 144/93 10/14/18 12:45 147/90 10/14/18 12:30 167/109 10/14/18 12:15 155/102 10/14/18 12:00 161/99 10/14/18 11:45 159/107 10/14/18 11:30 152/107 10/14/18 11:15 168/104 10/14/18 11:00 167/112 10/14/18 10:45 180/108 10/14/18 10:30 172/111 10/14/18 10:15 184/114 10/14/18 10:00 98 F 21 181/114 10/14/18 09:11 146/89 Intake and Output 10/14/18 10/15/18 10/15/18 23:59 07:59 15:59 Intake Total 250 / 250 225 / 225 Balance 250 / 250 225 / 225 Intake: IV Fluids 100 / 100 Zosyn 3.375 GM In 0.9 % Sodium 100 / 100 Chloride (Mini-Bag +) 100 ML @ 25 mls/hr IVPB Q12HR [facility] Rx#: [id number] Oral 150 / 150 225 / 225 Other: Weight 166.7 kg Patient Weight 10/15/18 23:59 Weight 166.7 kg EENT: Present: ATNC, mucous membranes moist, hearing intact, vision intact Neck: Present: supple Cardiology: Present: edema, normal S1, normal S2 Dialysis Vascular Access: Arteriovenous Fistula Gastrointestinal: Present: no tenderness, no guarding, obese Integumentary: Present: warm and dry Neurologic: Present: alert and oriented x3 Psychiatric: Present: mood/affect appropriate, cooperative - Lab 10/15/18 05:57 10/15/18 05:57 Most recent lab results Calcium 8.8 mg/dL (8.6-10.3) 10/15/18 05:57 Phosphorus 7.9 mg/dL (2.7-4.5) H 10/15/18 05:57 Consult Discharge Plan - Plan Referrals: NONE,PCP [Primary Care Provider] -
[2018-10-15] MEDS ORDERED: amLODIPine 5 MG TABLET PO SCH (09:00)
[2018-10-15] MEDS ORDERED: 0.9 % Sodium Chloride 250 ML IVC PRN (09:06)
[2018-10-15] MEDS ORDERED: *HR* Heparin 10,000 UNIT/10 ML VIAL IV PRN (09:06)
--- NOTE | 2018-10-15 10:17 | Discharge Summary ---
- NOTES TO OUTPATIENT PROVIDER Notes to Outpatient Provider: Patient was admitted for gross hematuria in the setting of UTI, PNA, and ESRD. Partially treated in 08/2018 due to inability to afford medications. Improved with IV Zosyn and will be discharged home on PO Levaquin, renally dosed. He was seen by social secretary to assist him with transportation to HD center as well as medications. Norvasc 5mg QD was added for poorly controlled HTN. Orders not resulted at time of discharge: Pending orders 10/12/18 21:40 Culture,Blood [BC] Stat Date of Encounter: 10/15/18 Time of Encounter: 07:30 - Discharge Diagnosis (1) UTI (urinary tract infection) due to urinary indwelling catheter Priority: Primary Status: Acute Qualifiers: Indwelling urinary catheter type: cystostomy catheter Encounter type: initial encounter Qualified Code(s): T83.510A - Infection and inflammatory reaction due to cystostomy catheter, initial encounter; N39.0 - Urinary tract infection, site not specified (2) Community acquired pneumonia Priority: Secondary Status: Acute Qualifiers: Laterality: unspecified laterality Qualified Code(s): J18.9 - Pneumonia, unspecified organism (3) ESRD (end stage renal disease) on dialysis Priority: Secondary Status: Acute (4) Hyperkalemia Priority: Secondary Status: Acute (5) Cirrhosis of liver with ascites Priority: Secondary Status: Chronic Qualifiers: Hepatic cirrhosis type: unspecified hepatic cirrhosis Qualified Code(s): K74.60 - Unspecified cirrhosis of liver (6) Hypertension Priority: Secondary Status: Chronic Qualifiers: Hypertension type: essential hypertension Qualified Code(s): I10 - Essential (primary) hypertension (7) Cigarette smoker Priority: Secondary Status: Chronic (8) Elevated troponin Priority: Secondary Status: Acute (9) DVT prophylaxis Priority: Secondary Status: Acute (10) Otitis externa Priority: Secondary Status: Acute Qualifiers: Otitis externa type: unspecified type Chronicity: acute Laterality: right Qualified Code(s): H60.501 - Unspecified acute noninfective otitis externa, right ear Hospital course: Mr. Snyder is a 33 year old male with PMHx of ESRD on HD TTSat, who was admitted for gross hematuria in the setting of UTI, PNA, and ESRD. Partially treated in 08/2018 due to inability to afford medications. Improved with IV Zosyn and will be discharged home on PO Levaquin, renally dosed. He was seen by social secretary to assist him with transportation to HD center as well as medications. Norvasc 5mg QD was added for poorly controlled HTN. Discharge discussed with: patient, social work, case management - Time Spent with Patient Total time spent providing and/or coordinating discharge services: 33 mins - Discharge Medications Prescriptions: amLODIPine [Norvasc] 5 mg PO DAILY #30 tablet Ciprofloxacin/Dex *EAR* Susp [Ciprodex *EAR* Susp] 4 drop RIGHT EAR BID 7 Days #1 bottle levoFLOXacin [Levaquin] 500 mg PO Q48H #3 tablet Home Medications: Sevelamer [Renvela] 2,400 mg PO TIDWM 04/25/17 [History] Ergocalciferol (VITAMIN D2) [Vitamin D2] 50,000 unit PO QWEEK 04/17/18 [History] Aspirin [Lo-Dose Aspirin EC] 81 mg PO DAILY 08/03/18 [History] Metoprolol Succinate [Toprol Xl] 100 mg PO DAILY 08/03/18 [History] Albuterol Sulfate [Albuterol Inhaler] 2 puff IH Q6HR #1 hfa.aer.ad 10/08/18 [Rx] Ciprofloxacin/Dex *EAR* Susp [Ciprodex *EAR* Susp] 4 drop RIGHT EAR BID 7 Days #1 bottle 10/15/18 [Rx] amLODIPine [Norvasc] 5 mg PO DAILY #30 tablet 10/15/18 [Rx] levoFLOXacin [Levaquin] 500 mg PO Q48H #3 tablet 10/15/18 [Rx] Allergies/Adverse Reactions: Allergy/AdvReac Type Severity Reaction Status Date / Time No Known Allergies Allergy Verified 10/13/18 13:19 Date of admission: 10/13/18 16:53 Primary care physician: PCP NONE Consults: 10/12/18 22:17 Consult to Nephrology [CONS] Stat Consulting Provider: [facility] Amelia/STEPH/JEANETTE/NICOLASA Reason for Consult: dialysis, hyperkalemia Time Notified: 22:18 Call Completed: Yes 10/13/18 01:25 Consult to [facility] Carpenter [CONS] Routine Reason for SW Consult: DC planning 10/13/18 08:30 Consult to Dialysis [CONS] ONCE Consult to Nurse Navigator [CONS] Routine Comment: ESRD, CHF 10/14/18 08:30 Consult to Dialysis [CONS] ONCE 10/15/18 09:15 Consult to Dialysis [CONS] ONCE - Constitutional Vitals: Temp Pulse Resp BP Pulse Ox 98.1 F 80 20 169/101 95 10/15/18 08:50 10/15/18 07:07 10/15/18 08:50 10/15/18 09:05 10/15/18 07:07 Exam: Gen.: not in apparent distress Ear: mildly swollen EAC on the right Cardiovascular: Regular rate and rhythm, no murmurs present Respiratory: Bibasilar crackles, no wheezing or rhonchi Abdomen: Distended but soft, nontender, no guarding or rigidity. : suprapubic catheter draining predominantly clear urine Extremities: 2+ pitting edema of the bilateral lower extremities, evidence of chronic venous stasis Neuro: Alert and oriented to person, place, and situation. No focal deficits. - Patient Status Disposition: Home, Self-Care Condition: Serious Functional capacity at discharge: independent ambulation Overall status at discharge: patient is progressing back to baseline - Discharge Instructions Instructions: Pneumonia (DC), Urinary Tract Infection in Men (DC) Follow Up With: NONE,PCP [Primary Care Provider] - Additional Instructions: Complete PO Levaquin, renally dosed NOrvasc 5mg QD added for HTN Ciprodex for 7 days for mild R otitis externa - Diet and Activity Activity: resume usual activities as tolerated Diet: other (renal diet)
[2018-10-15] MEDS: Acetaminophen 325 MG TABLET PO PRN (11:40)
[2018-10-15 12:38] VITALS: BP 142/84
[2018-10-15] MEDS ORDERED: Levofloxacin 750 MG/150 ML 750 MG/150 ML BAG IVPB SCH (18:00)
[2018-10-15] MEDS ORDERED: Levofloxacin 750 MG/150 ML 750 MG/150 ML BAG IVPB ONE (18:00)
[2018-10-16] MEDS ORDERED: Levofloxacin 500 MG/100 ML 500 MG/100 ML BAG IVPB SCH (18:00)
== END 2018-10-15 13:47 | disposition home or self-care (01) | DRG 698 ==
LOC: EMEROOARM 18:49 → 2ANU 18:49 → SUATTDRO 10-13 00:16 → 2ANU 10-13 01:00
PROVIDERS: ADMIT Pediatrics; ATTEND Internal Medicine

== ENCOUNTER 2019-02-05 09:03 | Inpatient (IN) ==
[2019-02-05] MEDS ORDERED: Isovue-370 500 ML BOTTLE IVP ONE (09:48)
--- NOTE | 2019-02-05 09:58 | Emergency Department Note ---
Disposition Clinical Impression: Infection, dialysis vascular access Qualifiers: Encounter type: initial encounter Qualified Code(s): T82.7XXA - Infection and inflammatory reaction due to other cardiac and vascular devices, implants and grafts, initial encounter Disposition: Admitted As Inpatient Condition: Good Time of Disposition: 09:55 General Adult HPI - General Chief complaint: ED Skin/Abscess/Foreign Body Stated complaint: Fistula leaking Time Seen by Provider: 02/05/19 09:18 Source: patient Limitations: no limitations - History of Present Illness HPI Narrative: End-stage renal disease patient who dialyzes on Friday, due to dialyze today, was told to come to the emergency department because he banged his arm where his dialysis access fistula is this morning and says that some pus came out. He squeezed it, and drained more pus out. It is not draining anymore. He said no fever, chills or night sweats. He had a fistulogram done about a week ago. He has no other complaints. Pain Scale: 8 - Related Data Home Medications Medication Instructions Recorded Confirmed Sevelamer [Renvela] 3,200 mg PO TIDWM 04/25/17 01/07/19 Aspirin [Lo-Dose Aspirin EC] 81 mg PO DAILY 08/03/18 01/07/19 Cholecalciferol (D-3) [Vitamin D] 5,000 unit PO MO 01/07/19 01/07/19 Folic Acid/Vit B Complex and C 1 tab PO DAILY 01/07/19 01/07/19 [Dialyvite Tablet] Metoprolol Succinate [Toprol Xl] 100 mg PO DAILY 01/07/19 01/07/19 Allergies Allergy/AdvReac Type Severity Reaction Status Date / Time No Known Allergies Allergy Verified 02/05/19 09:06 All systems ED: reviewed and negative except as stated. Past Medical History - Past Medical History Medical history: Reports: cardiomyopathy, cirrhosis, CHF, COPD, dialysis, hyperlipidemia, hypertension, liver disease, renal disease, thyroid disease, venous stasis, other Surgical history: Reports: orthopedic, other, vascular surgery Psychiatric history: Reports: anxiety, depression - Social History Smoking Status: Current every day smoker Smokeless Tobacco Status: No Alcohol use: Reports: none Drug use: Reports: none Physical Exam Vital signs noted, please see nurses notes. General: Well-developed, well-nourished patient lying in bed who appears non- toxic. Head: Atraumatic, normocephalic. Eyes: Sclera anicteric. ENT: Mucous membranes moist. Respiratory: Normal respiratory pattern without respiratory distress. Skin: Warm and dry, no appreciable rash. No signs of cellulitis. He is tender over the site that was draining. Neurological: Awake and alert with normal speech, gait and mental status. No focal deficits or lateralizing signs. Peripheral vascular: There is a subtle palpable thrill over the fistula site, with a faint bruit present. Psychiatric: Normal mood and affect. - General Limitations: no limitations General appearance: alert, in no apparent distress Course Vital Signs Temperature 98.8 F 02/05/19 09:07 Pulse Rate 98 02/05/19 09:07 Respiratory Rate 15 02/05/19 09:07 Blood Pressure 189/118 02/05/19 09:07 O2 Sat by Pulse Oximetry 96 02/05/19 09:07 Temperature 98.8 F 02/05/19 09:07 Pulse Rate 98 02/05/19 09:07 Respiratory Rate 15 02/05/19 09:07 Blood Pressure 189/118 02/05/19 09:07 O2 Sat by Pulse Oximetry 96 02/05/19 09:07 Oxygen Delivery Oxygen Delivery Room Air Medical Decision Making - MDM Narrative Medical decision making narrative: I spoke with Dr. Wynne, who agreed with the workup and treatment initiated. She did wants to wait to see what the CT scan shows and will decide whether or not to consult Dr. Avilez. She is asked for admission to the hospitalist. The hospitalist has been paged.
[2019-02-05] MEDS ORDERED: *HR* FentaNYL (PF) 100 MCG/2 ML VIAL IVP ONE (10:02)
[2019-02-05] MEDS ORDERED: Ketorolac 15 MG/ML VIAL IVP ONE (10:02)
[2019-02-05 10:19] LABS: Hemoglobin 11.2 g/dL (12.9-16.9); Mean Corpuscular HGB Conc 31.1 g/dL (31.6-35.5); Mean Corpuscular Hemoglobin 29.5 pg (28.0-33.3); Mean Corpuscular Volume 94.7 fL (83.0-100.0); Mean Platelet Volume 9.7 fL (9.4-12.4); Platelet Count 146 K/mcL (140-400); Red Cell Distribution Width 14.4 % (11.5-14.5)
[2019-02-05 10:29] LABS: Calcium 8.7 mg/dL (8.6-10.3); Phosphorous 8.4 mg/dL (2.7-4.5)
--- NOTE | 2019-02-05 12:16 | Internal Med History&Physical ---
Date of Encounter: 02/05/19 Time of Encounter: 11:00 Internal Medicine - H&P: HPI Chief complaint: Erythema and tenderness of the left arm upper extremity AV fistula History of present illness: Mr. Snyder is a 33 year old male End-stage renal disease with past medical hi story of end-stage renal disease who was dialyzing Friday via a left upper arm brachiobasilic AV fistula who presented to the ER with erythema, tenderness of what appears to be aneurysmal dilatation of the body of the fistula which most likely most secondary to partial thrombosis. Ct scan of the upper extremities was not conclusive about thrombus formation so I requested ultrasound evaluation of the left upper extremity AV fistula which confirmed chronic on acute thrombus formation within the AV fistula. The fistula on physical exam has good augmentation, however it is pulsatile which most likely secondary to flow-limiting thrombosis within the aneurysmal dilatation of the b kristi of the fistula. Both vascular surgery and nephrology was consulted for further evaluation and m anagement. We Spoke with vascular surgeon who stated that the patient might benefit from antibiotics as well as resting the AV fistula for couple of weeks, and obtaining a temporary dialysis catheter to dialyze tonight. As per my conversation with vascular surgeon, there is a chance that the partial thrombosis will result in clotted AV fistula and it might not be salvaged . We discussed with both the patient and the stone crusher operator, the patient expressed interest in attempting to salvage his fistula giving his young age. Nephrology provided information about the offsite access center that provide maintenance work for the patient AV fistula , I contacted the medical team as [facility] and they will be happy to attempt salvaging his the AV fistula. The patient will be scheduled for maintenance hemodialysis tonight to optimize fluid removal once the temporary dialysis catheter is inserted. We sign out to the prospective morning team who well follow-up the patient for further arrangements Past Med Surg Social Fam HX - Past Medical History Medical history: cardiomyopathy, cirrhosis, CHF, COPD, dialysis, hyperlipidemia, hypertension, liver disease, renal disease, thyroid disease, venous stasis, other Additional medical history: ESRD w/ T, TH, [facility] HD; anemia, hyperparathyroid, inguinal and umbilical hernia, suprapubic cath, hyperkalemia, ascites, pleural effusions, neurogenic bladder, pneumonia, peritonitis, cellulitis, UTIs. Psychiatric history: anxiety, depression - Past Surgical History Surgical History: orthopedic, other, vascular surgery Additional surgical history: suprapubic cath placement. fistula placement left AC - Social History Smoking Status: Current every day smoker Packs per day: <1 Smokeless Tobacco Status: No Alcohol use: none Drug use: none - Family History Mother Adopted: No Living Status: Still Living Hx Family Cardiac Disorders: Yes (Stroke) Hx Family Respiratory Disorders: No Hx Family Cancer: No Hx Family GI Disorders: No Hx Family Endocrine Disorder: Yes (DM) Hx Family Neuromuscular Disorders: No Hx Family Neurologic Disorders: No Hx Family HEENT Disorders: No Hx Family Autoimmune Disorders: No Father Living Status: Hx Family Cardiac Disorders: Yes (CAD) Hx Family Respiratory Disorders: No Hx Family Cancer: No Hx Family GI Disorders: No Hx Family Endocrine Disorder: Yes (Diabetes) Hx Family Neuromuscular Disorders: No Hx Family Neurologic Disorders: No Hx Family HEENT Disorders: No Hx Family Autoimmune Disorders: No Internal Medicine - H&P: Meds Sevelamer [Renvela] 2,400 mg PO TIDWM 04/25/17 [History] Aspirin [Lo-Dose Aspirin EC] 81 mg PO DAILY 08/03/18 [History] Metoprolol Succinate [Toprol Xl] 100 mg PO DAILY 01/07/19 [History] Ergocalciferol (VITAMIN D2) [Vitamin D2] 50,000 unit PO QWEEK 02/05/19 [History] amLODIPine [Norvasc] 5 mg PO DAILY 02/05/19 [History] Allergy/AdvReac Type Severity Reaction Status Date / Time No Known Allergies Allergy Verified 02/05/19 19:49 All Systems PM: A 10-system review of systems was performed and is negative for pertinent findings except as documented above in the HPI. - Constitutional Vitals: Temp Pulse Resp BP Pulse Ox 98 F 82 20 165/111 98 02/05/19 11:33 02/05/19 11:33 02/05/19 11:33 02/05/19 11:33 02/05/19 11:33 Exam: Gen: Vitals noted. No acute distress. Eyes: anicteric sclerae, moist conjunctivae; no lid-lag; Pupils equal and re active to light HENT: Atraumatic; oropharynx clear with moist mucous membranes and no mucosal ulcerations; normal hard and soft palate Neck: Trachea midline; supple, no thyromegaly or lymphadenopathy. Hemodialysis catheter in place on right IJ. Cardiac: RRR, no murmur, +S1/S2 Pulmonary: CTA bilaterally, no wheezes, rales or rhonchi, equal chest expansion Abdomen: soft, nontender, no guarding. No masses or hepatosplenomegaly MSK: ROM intact, no joint swelling noted Extremities: Trace BLE edema, nontender calf, no cyanosis or clubbing. Access: Left brachiocephalic fistula, globally dilated with noted with erythema and tenderness noted at the body of the fistula. Skin: Normal temperature, turgor and texture; no rash, ulcers or subcutaneous nodules Neuro: moves all extremities, no focal deficits. Psych: Appropriate mood and behavior. A&Ox3 Internal Med - H&P Results - Labs CBC & Chem 7: 02/07/19 02:39 02/07/19 02:39 Labs: Short CBC 02/05/19 Range/Units 09:57 WBC 6.6 (4.3-11.1) K/mcL Hgb 11.2 L (12.9-16.9) g/dL Hct 36.0 L (37.5-50.1) % Plt Count 146 (140-400) K/mcL BMP 02/05/19 09:57 Sodium 140 Potassium 5.0 Chloride 97 L Carbon Dioxide 31 H BUN 43 H Creatinine 8.67 H Glucose 121 H Calcium 8.7 - Impressions ITS Impressions Humerus CT 02/05/19 09:48 IMPRESSION: 1. Cellulitis of the left upper extremity surrounding the outflow vein of the AV fistula. There is a small amount of ill-defined fluid overlying the outflow vein as well, which is most likely due to infection. However, there is no defined abscess or drainable fluid collection. 2. Severe calcification of the peripheral outflow vein, which is resulting in a greater than 50% venous outflow stenosis. This region recently underwent venoplasty. If there are poor flow rates at dialysis, repeat venoplasty or stent placement may be necessary, once the infection has resolved. D/ / 02/05/2019 12:07:48 Jeyson Stokes MD / gogo Interpreting Provider: Jeyson Stokes MD - Assessment and Plan (1) Thrombosis due to vascular prosthetic devices, implants and grafts, initial encounter Current Visit: Yes Status: Acute Assessment and plan: Both vascular surgery and nephrology was consulted for further evaluation and management. We Spoke with vascular surgeon who stated that the patient might benefit from antibiotics as well as resting the AV fistula for couple of weeks, and obtaining a temporary dialysis catheter to dialyze tonight. As per my conversation with vascular surgeon, there is a chance that the partial thrombosis will result in clotted AV fistula and it might not be salvaged . We discussed with both the patient and the stone crusher operator, the patient expressed interest in attempting to salvage his fistula giving his young age. Nephrology provided information about the offsite access center that provide maintenance work for the patient AV fistula , I contacted the medical team as [facility] and they will be happy to attempt salvaging his the AV fistula. The patient will be scheduled for maintenance hemodialysis tonight to optimize fluid removal once the temporary dialysis catheter is inserted. We sign out to the prospective morning team who well follow-up the patient for further arrangements (2) ESRD needing dialysis Current Visit: Yes Status: Chronic Assessment and plan: We will continue maintenance hemodialysis Friday, nurse assistant was providing patient hemodialysis needs (3) COPD exacerbation Current Visit: No Status: Acute Assessment and plan: We will start the patient on DuoNeb when necessary (4) Anemia in CKD (chronic kidney disease) Current Visit: No Status: Chronic Qualifiers: Chronic kidney disease stage: on chronic dialysis Qualified Code(s): N18.6 - End stage renal disease; D63.1 - Anemia in chronic kidney disease; Z99.2 - Dependence on renal dialysis (5) DVT prophylaxis Current Visit: No Status: Acute - Time Spent With Patient Total time spent is greater than 50% in coordination of care (as documented) at patient's floor/unit and/or counseling patient:
[2019-02-05 14:15] LABS: Hepatitis B Surface Antigen Nonreactive (Nonreactive)
[2019-02-05] MEDS ORDERED: *HR* Heparin 5,000 UNIT/ML VIAL ONE (15:09)
[2019-02-05 15:21] LABS: Hepatitis B Surface Antibody 12.66 mIU/mL
--- NOTE | 2019-02-05 15:24 | IR Procedure Note ---
Date of procedure: 02/05/19 Consent Obtained: Verbal consent Timeout: Correct patient and procedure verified, Correct site verified, Time out performed, Skin prep completed Local anesthetic: Lidocaine 1% Indications: Renal failure Procedure Performed: Temp HD catheter placement Was there an quality assistant present: No Site/Technique: Temp right IJ HD catheter placed in VIR Results/Findings: Catheter placed Estimated blood loss (cc): 3 Complications: None; Tolerated procedure well Post Procedure Treatment Plan: Post procedure CXR pending prior to use Specimen: None
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
[2019-02-05] MEDS ORDERED: 0.9 % Sodium Chloride 250 ML IVC PRN (16:26)
[2019-02-05] MEDS ORDERED: *HR* Heparin 10,000 UNIT/10 ML VIAL IV PRN ×2 (16:26)
[2019-02-05] MEDS ORDERED: 0.9 % Sodium Chloride 1,000 ML PRIME SCH (16:30)
[2019-02-05] MEDS ORDERED: Ondansetron ODT 4 MG TAB.RAPDIS SL PRN (18:11)
[2019-02-05] MEDS ORDERED: Naloxone 0.4 MG/ML INJ IVP PRN (18:11)
[2019-02-05] MEDS ORDERED: Acetaminophen 325 MG TABLET PO PRN (18:11)
[2019-02-05] MEDS ORDERED: Metoprolol XL (24 HR) Succ 50 MG TAB.ER.24H PO SCH (18:15)
[2019-02-05] MEDS ORDERED: 0.9 % Sodium Chloride 2,000 ML ONE (18:21)
[2019-02-05] MEDS: Metoprolol XL (24 HR) Succ 50 MG TAB.ER.24H PO SCH (21:07)
[2019-02-05] MEDS: amLODIPine 5 MG TABLET PO SCH (21:07)
[2019-02-05] MEDS: *HR* HYDROcodone/Acet 5/325 mg TABLET PO PRN (21:07)
[2019-02-05] MEDS ORDERED: *HR* HYDROcodone/Acet 5/325 mg TABLET PO ONE (23:42)
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
[2019-02-06] MEDS: *HR* HYDROcodone/Acet 5/325 mg TABLET PO PRN (04:01)
[2019-02-06 04:27] LABS: Basophils # 0.1 K/mcL (0.0-0.2); Eosinophils # 0.4 K/mcL (0.0-0.6); Eosinophils % 5.9 %; Hematocrit 37.8 % (37.5-50.1); Hemoglobin 11.9 g/dL (12.9-16.9); Immature Granulocytes % 0.4 % (0-4); Lymphocytes # 1.4 K/mcL (0.6-4.6); Lymphocytes % 19.9 %; Mean Corpuscular HGB Conc 31.5 g/dL (31.6-35.5); Mean Corpuscular Hemoglobin 29.7 pg (28.0-33.3); Mean Corpuscular Volume 94.3 fL (83.0-100.0); Monocytes # 0.6 K/mcL (0.0-1.3); Monocytes % 8.4 %; Neutrophils # 4.5 K/mcL (1.6-8.9); Platelet Count 174 K/mcL (140-400); Red Blood Count 4.01 M/mcL (4.19-5.50); Red Cell Distribution Width 14.6 % (11.5-14.5); Segmented Neutrophils % 64.4 %
[2019-02-06 04:37] LABS: INR 1.2; Prothrombin Time 13.3 Seconds (9.4-12.1)
[2019-02-06 04:40] LABS: Activated Partial Thrombo Time 38.3 Seconds (26.0-36.0)
[2019-02-06 04:52] LABS: Albumin 2.9 g/dL (3.5-5.7); Albumin/Globulin Ratio 1.1 (1.1-2.2); Bilirubin,Total 0.4 mg/dL (0.3-1.0); Calcium 8.6 mg/dL (8.6-10.3); Chol/HDL Ratio 4.8 (0-4.9); Globulin 2.7 g/dL (2.4-3.5); Phosphorous 7.4 mg/dL (2.7-4.5); Potassium 4.7 mEq/L (3.5-5.1); Total Protein 5.6 g/dL (6.4-8.9)
[2019-02-06] MEDS: Aspirin Enteric Coated 81 MG Tablet PO SCH (07:47)
[2019-02-06] MEDS: amLODIPine 5 MG TABLET PO SCH (07:47)
--- NOTE | 2019-02-06 07:57 | Internal Med Progress Note ---
<Quinten Paul - Last Filed: 02/06/19 11:24> Hospitalist Progress Note - Encounter Date of Encounter: 02/06/19 Time of Encounter: 09:10 - Subjective Interval History: Patient is seen at dialysis. He says that he is continuing to have significant pain at the site of his fistula. He otherwise is doing okay. He denies any pu rulent material today. - Exam Vitals: Temp Pulse Resp BP Pulse Ox 98.8 F 75 20 144/89 95 02/06/19 07:11 02/06/19 07:11 02/06/19 07:11 02/06/19 07:11 02/06/19 07:51 Exam: Gen: Vitals noted. No acute distress. Eyes: anicteric sclerae, moist conjunctivae; no lid-lag; Pupils equal and reactive to light HENT: Atraumatic; oropharynx clear with moist mucous membranes and no mucosal ulcerations; normal hard and soft palate Neck: Trachea midline; supple, no thyromegaly or lymphadenopathy. Hemodialysis catheter in place on right IJ. Cardiac: RRR, no murmur, +S1/S2 Pulmonary: CTA bilaterally, no wheezes, rales or rhonchi, equal chest expansion Abdomen: soft, nontender, no guarding. No masses or hepatosplenomegaly MSK: ROM intact, no joint swelling noted Extremities: Trace BLE edema, nontender calf, no cyanosis or clubbing. Left brachiocephalic fistula noted with ecchymosis present and some erythema. Patient says that there is significant tenderness there, I did not palpate it at this time. Skin: Normal temperature, turgor and texture; no rash, ulcers or subcutaneous nodules Neuro: moves all extremities, no focal deficits. Psych: Appropriate mood and behavior. A&Ox3 - Assessment and Plan (1) ESRD needing dialysis Current Visit: Yes Status: Chronic Assessment and Plan: We will continue maintenance hemodialysis Friday, apartment assistant manager was providing patient hemodialysis needs (2) COPD exacerbation Current Visit: No Status: Acute Assessment and Plan: We will start the patient on DuoNeb when necessary No apparent need for antibiotics or systemic steroids at this time (3) Anemia in CKD (chronic kidney disease) Current Visit: No Status: Chronic (4) DVT prophylaxis Current Visit: No Status: Acute Assessment and Plan: SQ Heparin (5) Thrombosis due to vascular prosthetic devices, implants and grafts, initial encounter Current Visit: Yes Status: Acute Assessment and Plan: Per discussion with Dr. King, the patient has been arranged for salvage of partially thrombosed fistula by Dr. Wolf at [facility] in [facility]. He can be reached at the number listed below. Will arrange for transfer on Friday following placement of tunneled permanent HD cath at the request of Dr. Wolf. Percocet for pain. Dr. Wolf - - Time Spent with Patient Total time spent is greater than 50% in coordination of care (as documented) at patient's floor/unit and/or counseling patient: Internal Medicine: Result - Labs CBC & Chem 7: 02/06/19 04:05 02/06/19 04:05 Labs: Short CBC 02/05/19 02/06/19 Range/Units 09:57 04:05 WBC 6.6 7.0 (4.3-11.1) K/mcL Hgb 11.2 L 11.9 L (12.9-16.9) g/dL Hct 36.0 L 37.8 (37.5-50.1) % Plt Count 146 174 (140-400) K/mcL Neutrophils # 4.5 (1.6-8.9) K/mcL BMP 02/05/19 02/06/19 09:57 04:05 Sodium 140 139 Potassium 5.0 4.7 Chloride 97 L 98 Carbon Dioxide 31 H 32 H BUN 43 H 29 H Creatinine 8.67 H 6.60 H Glucose 121 H 112 H Calcium 8.7 8.6 Liver Function 02/06/19 Range/Units 04:05 Total Bilirubin 0.4 (0.3-1.0) mg/dL AST 7 L (13-39) Units/L ALT 4 L (7-52) Units/L Alkaline Phosphatase 96 (34-104) Units/L Albumin 2.9 L (3.5-5.7) g/dL - ABG Interpretation ABG results: PT/INR, D-dimer PT 13.3 Seconds (9.4-12.1) H 02/06/19 04:05 - Impressions Impressions Guidance Ultrasound 02/05/19 00:00 IMPRESSION: Successful ultrasound guided non tunneled HD catheter placement. D/ / Jeyson Stokes MD / Jeyson Stokes MD Interpreting Provider: Jeyson Stokes MD Insertion Non-Tunneled Catheter 02/05/19 00:00 IMPRESSION: Successful ultrasound guided non tunneled HD catheter placement. D/ / Jeyson Stokes MD / Jeyson Stokes MD Interpreting Provider: Jeyson Stokes MD Humer[facility] CT 02/05/19 09:48 IMPRESSION: 1. Cellulitis of the left upper extremity surrounding the outflow vein of the AV fistula. There is a small amount of ill-defined fluid overlying the outflow vein as well, which is most likely due to infection. However, there is no defined abscess or drainable fluid collection. 2. Severe calcification of the peripheral outflow vein, which is resulting in a greater than 50% venous outflow stenosis. This region recently underwent venoplasty. If there are poor flow rates at dialysis, repeat venoplasty or stent placement may be necessary, once the infection has resolved. D/ / 02/05/2019 12:07:48 Jeyson Stokes MD / [facility] Interpreting Provider: Jeyson Stokes MD Chest X-Ray 02/05/19 15:19 IMPRESSION: The newly placed temporary right IJ hemodialysis catheter is appropriately positioned and ready for use. D/ / Jeyson Stokes MD / Jeyson Stokes MD Interpreting Provider: Jeyson Stokes MD Consult Discharge Plan - Plan Referrals: NONE,PCP [Primary Care Provider] - <Ralph Snyder - Last Filed: 02/06/19 16:58> Hospitalist Progress Note - Encounter Date of Encounter: 02/06/19 - Exam Vitals: Temp Pulse Resp BP Pulse Ox 98.5 F 91 20 131/87 92 02/06/19 16:13 02/06/19 16:13 02/06/19 16:13 02/06/19 16:13 02/06/19 16:13 - Assessment and Plan (1) Thrombosis due to vascular prosthetic devices, implants and grafts, initial encounter Current Visit: Yes Status: Acute (2) DVT prophylaxis Current Visit: No Status: Acute (3) Anemia in CKD (chronic kidney disease) Current Visit: No Status: Chronic (4) COPD exacerbation Current Visit: No Status: Acute (5) ESRD needing dialysis Current Visit: Yes Status: Chronic (6) Systolic CHF Current Visit: No Status: Chronic (7) HTN (hypertension), benign Current Visit: No Status: Chronic (8) Obesity, morbid, BMI 40.0-49.9 Current Visit: No Status: Chronic (9) Tobacco abuse Current Visit: No Status: Chronic - Time Spent with Patient Total time spent is greater than 50% in coordination of care (as documented) at patient's floor/unit and/or counseling patient: Internal Medicine: Result - Labs CBC & Chem 7: 02/06/19 04:05 02/06/19 04:05 Labs: Short CBC 02/06/19 Range/Units 04:05 WBC 7.0 (4.3-11.1) K/mcL Hgb 11.9 L (12.9-16.9) g/dL Hct 37.8 (37.5-50.1) % Plt Count 174 (140-400) K/mcL Neutrophils # 4.5 (1.6-8.9) K/mcL BMP 02/06/19 04:05 Sodium 139 Potassium 4.7 Chloride 98 Carbon Dioxide 32 H BUN 29 H Creatinine 6.60 H Glucose 112 H Calcium 8.6 Liver Function 02/06/19 Range/Units 04:05 Total Bilirubin 0.4 (0.3-1.0) mg/dL AST 7 L (13-39) Units/L ALT 4 L (7-52) Units/L Alkaline Phosphatase 96 (34-104) Units/L Albumin 2.9 L (3.5-5.7) g/dL - ABG Interpretation ABG results: PT/INR, D-dimer PT 13.3 Seconds (9.4-12.1) H 02/06/19 04:05 - Attending Attestation I examined this patient and my medical decision-making was reviewed with the Resident Physician on 02/06/19. I agree with the documented findings, disposition and treatment plan as described except to the extent set forth below. Mr Snyder is currently admitted for issues with fistula. He remains moderate to high risk at this time. Mr Snyder is feeling OK. No fever or chills. No CP or SOB. No cough Some pain in arm. Exam alert Comfortable Mucus membranes dry Heart reg No wheeze Abd soft I/P 1. Thrombosed fistula - monitoring 2. ESRD Further diagnoses and plan as above. <Quinten Paul - Last Filed: 02/06/19 11:24> (3) Anemia in CKD (chronic kidney disease) Qualifiers: Chronic kidney disease stage: on chronic dialysis Qualified Code(s): N18.6 - End stage renal disease; D63.1 - Anemia in chronic kidney disease; Z99.2 - Dependence on renal dialysis <Ralph Snyder - Last Filed: 02/06/19 16:58> (3) Anemia in CKD (chronic kidney disease) Qualifiers: Chronic kidney disease stage: on chronic dialysis Qualified Code(s): N18.6 - End stage renal disease; D63.1 - Anemia in chronic kidney disease; Z99.2 - Dependence on renal dialysis (6) Systolic CHF Qualifiers: Heart failure chronicity: chronic Qualified Code(s): I50.22 - Chronic systolic (congestive) heart failure
[2019-02-06] MEDS ORDERED: *HR* Heparin 10,000 UNIT/10 ML VIAL IV PRN (08:20)
[2019-02-06] MEDS ORDERED: 0.9 % Sodium Chloride 250 ML IVC PRN (08:20)
[2019-02-06] MEDS ORDERED: *HR* OxyCODONE/APAP 5/325 TABLET PO PRN (11:22)
[2019-02-06] MEDS: *HR* OxyCODONE/APAP 10/325 TABLET PO PRN ×2 (12:08→17:09)
[2019-02-06] MEDS: *HR* Heparin 5,000 UNIT/ML VIAL SQ SCH ×2 (12:10→21:01)
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
[2019-02-06] MEDS: Metoprolol XL (24 HR) Succ 50 MG TAB.ER.24H PO SCH (17:09)
[2019-02-07] MEDS: *HR* OxyCODONE/APAP 10/325 TABLET PO PRN ×4 (00:10→22:53)
[2019-02-07 03:00] LABS: Basophils # 0.1 K/mcL (0.0-0.2); Basophils % 0.8 %; Eosinophils # 0.4 K/mcL (0.0-0.6); Eosinophils % 5.3 %; Hematocrit 39.3 % (37.5-50.1); Hemoglobin 12.2 g/dL (12.9-16.9); Immature Granulocytes % 0.2 % (0-4); Lymphocytes # 1.7 K/mcL (0.6-4.6); Lymphocytes % 20.1 %; Mean Corpuscular Hemoglobin 29.3 pg (28.0-33.3); Mean Corpuscular Volume 94.5 fL (83.0-100.0); Mean Platelet Volume 9.8 fL (9.4-12.4); Monocytes # 0.8 K/mcL (0.0-1.3); Monocytes % 9.6 %; Neutrophils # 5.3 K/mcL (1.6-8.9); Platelet Count 184 K/mcL (140-400); Red Blood Count 4.16 M/mcL (4.19-5.50); Red Cell Distribution Width 14.7 % (11.5-14.5)
[2019-02-07 03:19] LABS: Calcium 8.6 mg/dL (8.6-10.3); Potassium 5.7 mEq/L (3.5-5.1)
[2019-02-07] MEDS: *HR* Heparin 5,000 UNIT/ML VIAL SQ SCH ×3 (03:40→19:38)
[2019-02-07] MEDS: amLODIPine 5 MG TABLET PO SCH (07:30)
[2019-02-07] MEDS: Aspirin Enteric Coated 81 MG Tablet PO SCH (07:30)
--- NOTE | 2019-02-07 08:07 | Internal Med Progress Note ---
<Ralph Snyder - Last Filed: 02/07/19 15:51> Hospitalist Progress Note - Encounter Date of Encounter: 02/07/19 - Exam Vitals: Temp Pulse Resp BP Pulse Ox 97.7 F 65 96 117/75 96 02/07/19 12:18 02/07/19 12:18 02/07/19 12:18 02/07/19 12:18 02/07/19 08:13 - Assessment and Plan (1) DVT prophylaxis Current Visit: No Status: Acute (2) Anemia in CKD (chronic kidney disease) Current Visit: No Status: Chronic (3) COPD exacerbation Current Visit: No Status: Acute (4) ESRD needing dialysis Current Visit: Yes Status: Chronic (5) Thrombosis due to vascular prosthetic devices, implants and grafts, initial encounter Current Visit: Yes Status: Acute - Time Spent with Patient Total time spent is greater than 50% in coordination of care (as documented) at patient's floor/unit and/or counseling patient: Internal Medicine: Result - Labs CBC & Chem 7: 02/07/19 02:39 02/07/19 02:39 Labs: Short CBC 02/07/19 Range/Units 02:39 WBC 8.3 (4.3-11.1) K/mcL Hgb 12.2 L (12.9-16.9) g/dL Hct 39.3 (37.5-50.1) % Plt Count 184 (140-400) K/mcL Neutrophils # 5.3 (1.6-8.9) K/mcL BMP 02/07/19 02:39 Sodium 134 L Potassium 5.7 H Chloride 95 L Carbon Dioxide 30 H BUN 40 H Creatinine 8.09 H Glucose 99 Calcium 8.6 - ABG Interpretation ABG results: PT/INR, D-dimer PT 13.3 Seconds (9.4-12.1) H 02/06/19 04:05 Consult Discharge Plan - Plan Referrals: NONE,PCP [Primary Care Provider] - - Attending Attestation I examined this patient and my medical decision-making was reviewed with the Resident Physician on 02/07/19. I agree with the documented findings, disposition and treatment plan as described except to the extent set forth below. Mr Snyder is currently admitted due to thrombosed fistula. He remains moderate to high risk due to potential for worsening clinical status. Mr Snyder is feeling OK. Some drainage from fistula. No fever or chills. No CP or SOB at this time. Exam alert Comfortable Mucus membranes dry Heart reg No wheeze Abd soft Dressing intact I/P 1. Thrombosed fistula 2. ESRD Further diagnoses and plan as above. <Quinten Paul - Last Filed: 02/07/19 16:24> Hospitalist Progress Note - Encounter Date of Encounter: 02/07/19 Time of Encounter: 12:30 - Subjective Interval History: Patient resting in bed at time of examination. He has no acute complaints at this time. - Exam Vitals: Temp Pulse Resp BP Pulse Ox 98 F 73 19 147/95 96 02/07/19 03:32 02/07/19 03:32 02/07/19 03:32 02/07/19 03:32 02/07/19 03:32 Exam: Gen: Vitals noted. No acute distress. Eyes: anicteric sclerae, moist conjunctivae; no lid-lag; Pupils equal and reactive to light HENT: Atraumatic; oropharynx clear with moist mucous membranes and no mucosal ulcerations; normal hard and soft palate Neck: Trachea midline; supple, no thyromegaly or lymphadenopathy. Hemodialysis catheter in place on right IJ. Cardiac: RRR, no murmur, +S1/S2 Pulmonary: CTA bilaterally, no wheezes, rales or rhonchi, equal chest expansion Abdomen: soft, nontender, no guarding. No masses or hepatosplenomegaly MSK: ROM intact, no joint swelling noted Extremities: Trace BLE edema, nontender calf, no cyanosis or clubbing. Left brachiocephalic fistula noted with ecchymosis present and some erythema. Patient says that there is significant tenderness there, I did not palpate it at this time. Skin: Normal temperature, turgor and texture; no rash, ulcers or subcutaneous nodules Neuro: moves all extremities, no focal deficits. Psych: Appropriate mood and behavior. A&Ox3 - Assessment and Plan (1) Hyperkalemia Current Visit: Yes Status: Acute Assessment and Plan: Hyperkalemia in setting of ESRD, potassium 5.7 I will give the patient a dose of Kayexalate today Scheduled for hemodialysis tomorrow Repeat potassium in the evening (2) Thrombosis due to vascular prosthetic devices, implants and grafts, initial encounter Current Visit: Yes Status: Acute Assessment and Plan: Per discussion with Dr. King, the patient has been arranged for salvage of pa rtially thrombosed fistula by Dr. Wolf at [facility] in [facility]. He can be reached at the number listed below. Will arrange for transfer on Friday following placement of tunneled permanent HD cath at the request of Dr. Wolf. Percocet for pain. Dr. Wolf - (3) Anemia in CKD (chronic kidney disease) Current Visit: No Status: Chronic Assessment and Plan: Stable (4) Obesity, morbid, BMI 40.0-49.9 Current Visit: No Status: Chronic (5) Tobacco abuse Current Visit: No Status: Chronic (6) HTN (hypertension), benign Current Visit: No Status: Chronic Assessment and Plan: Controlled on home meds (7) Systolic CHF Current Visit: No Status: Chronic Assessment and Plan: Fluid removal with HD, continue ASA, Toprol. CHEIKH/ARB per nephrology. Should be on Statin. (8) COPD exacerbation Current Visit: No Status: Acute Assessment and Plan: We will start the patient on DuoNeb when necessary No apparent need for antibiotics or systemic steroids at this time (9) ESRD needing dialysis Current Visit: Yes Status: Chronic Assessment and Plan: We will continue maintenance hemodialysis Friday, ophthalmic surgical assistant was providing patient hemodialysis needs (10) DVT prophylaxis Current Visit: No Status: Acute Assessment and Plan: SQ Heparin - Time Spent with Patient Total time spent is greater than 50% in coordination of care (as documented) at patient's floor/unit and/or counseling patient: Internal Medicine: Result - Labs CBC & Chem 7: 02/07/19 02:39 02/07/19 02:39 Labs: Short CBC 02/07/19 Range/Units 02:39 WBC 8.3 (4.3-11.1) K/mcL Hgb 12.2 L (12.9-16.9) g/dL Hct 39.3 (37.5-50.1) % Plt Count 184 (140-400) K/mcL Neutrophils # 5.3 (1.6-8.9) K/mcL BMP 02/07/19 02:39 Sodium 134 L Potassium 5.7 H Chloride 95 L Carbon Dioxide 30 H BUN 40 H Creatinine 8.09 H Glucose 99 Calcium 8.6 - ABG Interpretation ABG results: PT/INR, D-dimer PT 13.3 Seconds (9.4-12.1) H 02/06/19 04:05 <Ralph Snyder - Last Filed: 02/07/19 15:51> (2) Anemia in CKD (chronic kidney disease) Qualifiers: Chronic kidney disease stage: on chronic dialysis Qualified Code(s): N18.6 - End stage renal disease; D63.1 - Anemia in chronic kidney disease; Z99.2 - Dependence on renal dialysis <Quinten Paul - Last Filed: 02/07/19 16:24> (3) Anemia in CKD (chronic kidney disease) Qualifiers: Chronic kidney disease stage: on chronic dialysis Qualified Code(s): N18.6 - End stage renal disease; D63.1 - Anemia in chronic kidney disease; Z99.2 - Dependence on renal dialysis (7) Systolic CHF Qualifiers: Heart failure chronicity: chronic Qualified Code(s): I50.22 - Chronic systolic (congestive) heart failure
[2019-02-07] MEDS: Metoprolol XL (24 HR) Succ 50 MG TAB.ER.24H PO SCH (17:14)
[2019-02-07] MEDS ORDERED: Insulin Human Regular 10 UNIT in 0.9 % Sodium Chloride 10 ML IV ONE (18:52)
[2019-02-07] MEDS ORDERED: *HR* Dextrose 50 % in Water (Syg) 50 ML SYRINGE IVP ONE (18:52)
--- NOTE | 2019-02-07 19:00 | Event Note ---
Date of Encounter: 02/07/19 Time of Encounter: 18:58 Patient had elevated potassium on morning labs. Kayexelate was ordered in the morning however the patient refused and stated that he would take it later in the day. Potassium recheck at 1641 was significant for K+ of 6.0. The patient did take the kayexelate at that time. I ordered an EKG, and 1g CaGluconate. The EKG was significant for nonspecific T wave changes including symmetric inversions in Leads III, AVF, and V1, V4-6. The patient is not complaining of chest pains at this time. I ordered a state troponin, and also 10u IV insulin + 1amp D50 to be given now. A repeat K+ will be checked at 2200. The case was signed out to the night team who will follow-up on these labs, and will plan to repeat insulin and glucose in 2 hours.
--- NOTE | 2019-02-07 23:33 | Nephrology Progress Note ---
Date of Encounter: 02/06/19 Time of Encounter: 12:00 - Assessment and Plan (1) ESRD needing dialysis Current Visit: Yes Status: Chronic Continue UF with goal of 4-5kg as tolerated Continue renal diet Continue fluid restricton (2) AV fistula thrombosis Current Visit: Yes Status: Acute Imaging reviewed; CT and venous imaging Case discussed with hospitalist who is also an interventional heating and blending supervisor and vascular surgery, recs appreciated Tentative plan to transfer to pt's vascular surgeon at [place] possibly on friday if needed Qualifiers: Encounter type: subsequent encounter Qualified Code(s): T82.868D - Thrombosis due to vascular prosthetic devices, implants and grafts, subsequent encounter (3) AV fistula infection Current Visit: Yes Status: Acute Presumed, given report of purulent drainage with mild erythema and warmth s/p vanco x1 blood cultues negative todate, final pending Qualifiers: Encounter type: subsequent encounter Qualified Code(s): T82.7XXD - Infection and inflammatory reaction due to other cardiac and vascular devices, implants and grafts, subsequent encounter Subjective Interval history: Pt seen and examined s/p HD yesterday after temp HD catheter placed and today on UF, no new complaints. AVF with no more drainage, pain Objective - Vital Signs Vital signs: Vital Signs Temp Pulse Resp BP Pulse Ox 02/07/19 23:22 97.7 F 86 19 137/78 94 02/07/19 20:22 97.8 F 83 19 153/96 97 02/07/19 16:44 98.3 F 84 20 135/86 99 02/07/19 12:18 97.7 F 65 96 117/75 02/07/19 08:13 98.3 F 67 20 122/77 96 02/07/19 03:32 98 F 73 19 147/95 96 02/06/19 23:58 98 F 82 19 136/84 96 Intake and Output 02/07/19 02/07/19 02/07/19 07:59 15:59 23:59 Intake Total 120 / 720.1 480 / 720.1 120.1 / 720.1 Balance 120 / 720.1 480 / 720.1 120.1 / 720.1 Intake: IV Fluids 120.1 / 120.1 HumuLIN R 10 UNIT In Normal 10.1 / 10.1 Saline Flush 10 ML @ 1212 mls/ hr IV ONCE ONE Rx#:[id number] Calcium Gluconate 1,000 MG In 0 110 / 110 .9 % Sodium Chloride 100 ML @ 220 mls/hr IVPB ONCE ONE Rx#: [id number] Oral 120 / 600 480 / 600 Other: Meal Breakfast Percent of Meal Consumed 100% Stool Size Moderate Stool Consistency soft Stool Color Brown # Urine Diapers 1 Weight 153 kg Blood Glucose* 50 Patient Weight 02/07/19 23:59 Weight 153 kg - General Appearance General appearance: Present: chronically ill (NAD) EENT: Present: ATNC, mucous membranes moist Neck: Present: no JVD, supple Respiratory: Present: clear Cardiology: Present: edema, normal S1, normal S2 Dialysis Vascular Access: Arteriovenous Fistula thrill: Yes bruit: Yes Additional Comments: temp line in place Gastrointestinal: Present: no tenderness, no guarding, distended Integumentary: Present: warm and dry Neurologic: Present: no focal deficit Musculoskeletal: Present: no deformities Psychiatric: Present: mood/affect appropriate, cooperative - Lab 02/07/19 02:39 02/07/19 22:58 Consult Discharge Plan - Plan Referrals: NONE,PCP [Primary Care Provider] -
--- NOTE | 2019-02-07 23:33 | Nephrology Progress Note ---
Date of Encounter: 02/07/19 Time of Encounter: 14:00 - Assessment and Plan (1) ESRD needing dialysis Current Visit: Yes Status: Chronic next HD planned tomorrow Encouraged adherence to renal diet given elevated potassium and taking kayexalate as prescribed Continue fluid restriction, fluid removal in 2 days was 10kg (22lbs) (2) AV fistula thrombosis Current Visit: Yes Status: Acute Imaging reviewed; CT and venous imaging Case discussed with hospitalist who is also an interventional retail account representative and vascular surgery, recs appreciated Tentative plan to transfer to pt's vascular surgeon at [place] possibly on friday if needed Qualifiers: Encounter type: subsequent encounter Qualified Code(s): T82.868D - Thrombosis due to vascular prosthetic devices, implants and grafts, subsequent encounter (3) AV fistula infection Current Visit: Yes Status: Acute Presumed, given report of purulent drainage with mild erythema and warmth but not likely s/p vanco x1 blood cultures negative todate, final pending Qualifiers: Encounter type: subsequent encounter Qualified Code(s): T82.7XXD - Infection and inflammatory reaction due to other cardiac and vascular devices, implants and grafts, subsequent encounter (4) Hyperkalemia Current Visit: Yes Status: Acute as above Subjective Interval history: Pt seen and examined doing well. Denies any further problems with AVF. Reports temp line in neck is uncomfortable. Was given kayexelate to take tis am but waiting to take later. Objective - Vital Signs Vital signs: Vital Signs Temp Pulse Resp BP Pulse Ox 02/07/19 23:22 97.7 F 86 19 137/78 94 02/07/19 20:22 97.8 F 83 19 153/96 97 02/07/19 16:44 98.3 F 84 20 135/86 99 02/07/19 12:18 97.7 F 65 96 117/75 02/07/19 08:13 98.3 F 67 20 122/77 96 02/07/19 03:32 98 F 73 19 147/95 96 02/06/19 23:58 98 F 82 19 136/84 96 Intake and Output 02/07/19 02/07/19 02/07/19 07:59 15:59 23:59 Intake Total 120 / 720.1 480 / 720.1 120.1 / 720.1 Balance 120 / 720.1 480 / 720.1 120.1 / 720.1 Intake: IV Fluids 120.1 / 120.1 HumuLIN R 10 UNIT In Normal 10.1 / 10.1 Saline Flush 10 ML @ 1212 mls/ hr IV ONCE ONE Rx#:[id number] Calcium Gluconate 1,000 MG In 0 110 / 110 .9 % Sodium Chloride 100 ML @ 220 mls/hr IVPB ONCE ONE Rx#: [id number] Oral 120 / 600 480 / 600 Other: Meal Breakfast Percent of Meal Consumed 100% Stool Size Moderate Stool Consistency soft Stool Color Brown # Urine Diapers 1 Weight 153 kg Blood Glucose* 50 Patient Weight 02/07/19 23:59 Weight 153 kg - General Appearance General appearance: Present: chronically ill (NAD) EENT: Present: ATNC, mucous membranes moist Neck: Present: no JVD, supple Respiratory: Present: clear Cardiology: Present: edema, normal S1, normal S2 Dialysis Vascular Access: Arteriovenous Fistula thrill: Yes bruit: Yes (dressing in place) Additional Comments: temp line Gastrointestinal: Present: no tenderness, no guarding, distended Integumentary: Present: warm and dry Neurologic: Present: no focal deficit Musculoskeletal: Present: no deformities Psychiatric: Present: mood/affect appropriate - Lab 02/07/19 02:39 02/07/19 22:58 Consult Discharge Plan - Plan Referrals: NONE,PCP [Primary Care Provider] -
[2019-02-08] MEDS ORDERED: *HR* Dextrose 50 % in Water (Syg) 50 ML SYRINGE IVP ONE (00:55)
[2019-02-08] MEDS ORDERED: Insulin LISPRO 300 UNITS/3 ML VIAL SQ ONE (00:55)
[2019-02-08] MEDS: *HR* Heparin 5,000 UNIT/ML VIAL SQ SCH ×3 (03:34→21:18)
[2019-02-08 06:13] LABS: Hematocrit 35.7 % (37.5-50.1); Hemoglobin 11.1 g/dL (12.9-16.9); Mean Corpuscular HGB Conc 31.1 g/dL (31.6-35.5); Mean Corpuscular Hemoglobin 29.2 pg (28.0-33.3); Mean Corpuscular Volume 93.9 fL (83.0-100.0); Mean Platelet Volume 9.9 fL (9.4-12.4); Platelet Count 165 K/mcL (140-400); Red Cell Distribution Width 14.6 % (11.5-14.5)
[2019-02-08 06:32] LABS: Calcium 8.5 mg/dL (8.6-10.3); Potassium 6.4 mEq/L (3.5-5.1)
[2019-02-08] MEDS: *HR* OxyCODONE/APAP 10/325 TABLET PO PRN ×3 (06:57→21:17)
[2019-02-08] MEDS: Aspirin Enteric Coated 81 MG Tablet PO SCH (07:46)
[2019-02-08] MEDS: amLODIPine 5 MG TABLET PO SCH (07:46)
[2019-02-08] MEDS: Sennosides/Docusate Sodium TABLET PO SCH ×2 (07:46→21:17)
--- NOTE | 2019-02-08 08:14 | Internal Med Progress Note ---
<Ralph Snyder - Last Filed: 02/08/19 14:48> Hospitalist Progress Note - Encounter Date of Encounter: 02/08/19 - Exam Vitals: Temp Pulse Resp BP Pulse Ox 98.1 F 82 18 149/89 95 02/08/19 09:40 02/08/19 06:53 02/08/19 09:40 02/08/19 13:10 02/08/19 06:53 - Assessment and Plan (1) Obesity, morbid, BMI 40.0-49.9 Current Visit: No Status: Chronic (2) Tobacco abuse Current Visit: No Status: Chronic (3) DVT prophylaxis Current Visit: No Status: Acute (4) Anemia in CKD (chronic kidney disease) Current Visit: No Status: Chronic (5) Hyperkalemia Current Visit: Yes Status: Acute (6) HTN (hypertension), benign Current Visit: No Status: Chronic (7) Systolic CHF Current Visit: No Status: Chronic (8) COPD exacerbation Current Visit: No Status: Acute (9) ESRD needing dialysis Current Visit: Yes Status: Chronic (10) Thrombosis due to vascular prosthetic devices, implants and grafts, initial encounter Current Visit: Yes Status: Acute - Time Spent with Patient Total time spent is greater than 50% in coordination of care (as documented) at patient's floor/unit and/or counseling patient: Internal Medicine: Result - Labs CBC & Chem 7: 02/08/19 05:45 02/08/19 10:49 Labs: Short CBC 02/08/19 Range/Units 05:45 WBC 8.1 (4.3-11.1) K/mcL Hgb 11.1 L (12.9-16.9) g/dL Hct 35.7 L (37.5-50.1) % Plt Count 165 (140-400) K/mcL BMP 02/07/19 02/07/19 02/08/19 16:41 22:58 00:20 Sodium Potassium 6.0 H 6.0 H 6.1 H Chloride Carbon Dioxide BUN Creatinine Glucose Calcium 02/08/19 02/08/19 05:45 10:49 Sodium 134 L Potassium 6.4 H 4.7 D Chloride 94 L Carbon Dioxide 28 BUN 56 H Creatinine 9.87 H Glucose 94 Calcium 8.5 L Cardiac Enzymes 02/07/19 Range/Units 19:00 Troponin I 0.03 (< 0.04) ng/mL - ABG Interpretation ABG results: PT/INR, D-dimer PT 13.3 Seconds (9.4-12.1) H 02/06/19 04:05 Consult Discharge Plan - Plan Referrals: NONE,PCP [Primary Care Provider] - - Attending Attestation I examined this patient and my medical decision-making [facility]. I agree with the documented findings, disposition and treatment plan as described except to the extent set forth below. Mr Snyder is currently admitted for presumed thrombosed fistula. He remains moderate to high risk due to potential for worsening clinical status. Mr Snyder is resting in dialysis. No fever or chills. Potassium was high - he does not follow diet and refused treatment yesterday. No other issues. Exam alert comfortable Mucus membranes dry No tachycardia Edema present I/P 1. Presumed thrombosed fistula - anticipate transfer to [place] tomorrow 2. Hyperkalemia - in dialysis now 3. Morbid obesity Further diagnoses and plan as above. <Quinten Paul - Last Filed: 02/08/19 16:28> Hospitalist Progress Note - Encounter Date of Encounter: 02/08/19 Time of Encounter: 09:45 - Subjective Interval History: Patient seen on hemodialysis. He has no acute complaints today. Overall he says that he is feeling well. He is not saying that his arm hurts extremely poorly. He says that he has not been eating outside food. He does say that he did have 1 glass of orange juice. - Exam Vitals: Temp Pulse Resp BP Pulse Ox 97.6 F 82 18 134/87 95 02/08/19 06:53 02/08/19 06:53 02/08/19 06:53 02/08/19 06:53 02/08/19 06:53 Exam: Gen: Vitals noted. No acute distress. Eyes: anicteric sclerae, moist conjunctivae; no lid-lag; Pupils equal and reactive to light HENT: Atraumatic; oropharynx clear with moist mucous membranes and no mucosal ulcerations; normal hard and soft palate Neck: Trachea midline; supple, no thyromegaly or lymphadenopathy. Hemodialysis catheter in place on right IJ. Cardiac: RRR, no murmur, +S1/S2 Pulmonary: CTA bilaterally, no wheezes, rales or rhonchi, equal chest expansion Abdomen: soft, nontender, no guarding. No masses or hepatosplenomegaly MSK: ROM intact, no joint swelling noted Extremities: Trace BLE edema, nontender calf, no cyanosis or clubbing. Left brachiocephalic fistula noted with ecchymosis present and some erythema. Patient says that there is significant tenderness there, I did not palpate it at this time. Skin: Normal temperature, turgor and texture; no rash, ulcers or subcutaneous nodules Neuro: moves all extremities, no focal deficits. Psych: Appropriate mood and behavior. A&Ox3 - Assessment and Plan (1) Thrombosis due to vascular prosthetic devices, implants and grafts, initial encounter Current Visit: Yes Status: Acute Assessment and Plan: Per discussion with Dr. King, the patient has been arranged for salvage of partially thrombosed fistula by Dr. Wolf at [facility] in [facility]. He can be reached at the number listed below. Will arrange for transfer on Friday following placement of tunneled permanent HD cath at the request of Dr. Wolf. Percocet for pain. Dr. Wolf - (2) Hyperkalemia Current Visit: Yes Status: Acute Assessment and Plan: Hyperkalemia in setting of ESRD, potassium 6.4 Has gotten Calcium gluconate, kayexelate and IV Insulin/glucose Plan for HD today (3) Anemia in CKD (chronic kidney disease) Current Visit: No Status: Chronic Assessment and Plan: Stable (4) Obesity, morbid, BMI 40.0-49.9 Current Visit: No Status: Chronic (5) Tobacco abuse Current Visit: No Status: Chronic (6) HTN (hypertension), benign Current Visit: No Status: Chronic Assessment and Plan: Controlled on home meds (7) Systolic CHF Current Visit: No Status: Chronic Assessment and Plan: Fluid removal with HD, continue ASA, Toprol. CHEIKH/ARB per nephrology. Should be on Statin. (8) COPD exacerbation Current Visit: No Status: Acute Assessment and Plan: We will start the patient on DuoNeb when necessary No apparent need for antibiotics or systemic steroids at this time (9) ESRD needing dialysis Current Visit: Yes Status: Chronic Assessment and Plan: We will continue maintenance hemodialysis Friday, administrative services assistant was providing patient hemodialysis needs (10) DVT prophylaxis Current Visit: No Status: Acute Assessment and Plan: SQ Heparin - Time Spent with Patient Total time spent is greater than 50% in coordination of care (as documented) at patient's floor/unit and/or counseling patient: Internal Medicine: Result - Labs CBC & Chem 7: 02/08/19 05:45 02/08/19 10:49 Labs: Short CBC 02/08/19 Range/Units 05:45 WBC 8.1 (4.3-11.1) K/mcL Hgb 11.1 L (12.9-16.9) g/dL Hct 35.7 L (37.5-50.1) % Plt Count 165 (140-400) K/mcL BMP 02/07/19 02/07/19 02/08/19 16:41 22:58 00:20 Sodium Potassium 6.0 H 6.0 H 6.1 H Chloride Carbon Dioxide BUN Creatinine Glucose Calcium 02/08/19 05:45 Sodium 134 L Potassium 6.4 H Chloride 94 L Carbon Dioxide 28 BUN 56 H Creatinine 9.87 H Glucose 94 Calcium 8.5 L Cardiac Enzymes 02/07/19 Range/Units 19:00 Troponin I 0.03 (< 0.04) ng/mL - ABG Interpretation ABG results: PT/INR, D-dimer PT 13.3 Seconds (9.4-12.1) H 02/06/19 04:05 <Ralph Snyder - Last Filed: 02/08/19 14:48> (4) Anemia in CKD (chronic kidney disease) Qualifiers: Chronic kidney disease stage: on chronic dialysis Qualified Code(s): N18.6 - End stage renal disease; D63.1 - Anemia in chronic kidney disease; Z99.2 - Dependence on renal dialysis (7) Systolic CHF Qualifiers: Heart failure chronicity: chronic Qualified Code(s): I50.22 - Chronic systolic (congestive) heart failure <Quinten Paul - Last Filed: 02/08/19 16:28> (3) Anemia in CKD (chronic kidney disease) Qualifiers: Chronic kidney disease stage: on chronic dialysis Qualified Code(s): N18.6 - End stage renal disease; D63.1 - Anemia in chronic kidney disease; Z99.2 - Dependence on renal dialysis (7) Systolic CHF Qualifiers: Heart failure chronicity: chronic Qualified Code(s): I50.22 - Chronic systolic (congestive) heart failure
[2019-02-08] MEDS ORDERED: 0.9 % Sodium Chloride 250 ML IVC PRN (08:15)
[2019-02-08] MEDS ORDERED: *HR* Heparin 10,000 UNIT/10 ML VIAL IV PRN (08:15)
[2019-02-08] MEDS ORDERED: 0.9 % Sodium Chloride 2,000 ML ONE (09:56)
[2019-02-08] MEDS: Metoprolol XL (24 HR) Succ 50 MG TAB.ER.24H PO SCH (17:34)
--- NOTE | 2019-02-08 23:27 | Nephrology Progress Note ---
Date of Encounter: 02/08/19 Time of Encounter: 12:00 - Assessment and Plan (1) ESRD needing dialysis Current Visit: Yes Status: Chronic Continue HD with UF as tolerated 1k bath used for 2 hours with STAT repeat potassium an reduced bath as needed Counselled pt on adherence to strict renal diet (2) AV fistula thrombosis Current Visit: Yes Status: Acute Qualifiers: Encounter type: subsequent encounter Qualified Code(s): T82.868D - Thrombosis due to vascular prosthetic devices, implants and grafts, subsequent encounter (3) AV fistula infection Current Visit: Yes Status: Acute Qualifiers: Encounter type: subsequent encounter Qualified Code(s): T82.7XXD - Infection and inflammatory reaction due to other cardiac and vascular devices, implants and grafts, subsequent encounter (4) Hyperkalemia Current Visit: Yes Status: Acute Subjective Interval history: Pt seen and examined on HD doing well. Pt reports drinking lots of orange juice hence his hyperkalemia issues Objective - Vital Signs Vital signs: Vital Signs Temp Pulse Resp BP Pulse Ox 02/08/19 19:15 97.8 F 85 17 102/63 96 02/08/19 16:02 97.9 F 84 19 143/83 99 02/08/19 13:55 98.0 F 20 139/77 02/08/19 13:40 126/78 02/08/19 13:25 127/77 02/08/19 13:10 149/89 02/08/19 12:55 121/75 02/08/19 12:40 142/82 02/08/19 12:25 137/72 02/08/19 12:10 121/68 02/08/19 11:55 127/74 02/08/19 11:40 129/69 02/08/19 11:25 131/74 02/08/19 11:10 129/69 02/08/19 10:55 127/67 02/08/19 10:40 129/77 02/08/19 10:25 134/73 02/08/19 10:10 137/77 02/08/19 09:55 140/77 02/08/19 09:40 98.1 F 18 138/74 02/08/19 06:53 97.6 F 82 18 134/87 95 02/08/19 03:38 98 F 77 19 143/72 96 Intake and Output 02/08/19 02/08/19 02/08/19 07:59 15:59 23:59 Intake Total 960 / 960 Output Total 100 / 5700 5600 / 5700 Balance -100 / -4740 -4640 / -4740 Intake: Oral 360 / 360 Intake, Rinseback and Flushes 600 / 600 Output: Urine 0 / 0 Total Dialysis (HD) Output 5600 / 5600 Catheter 100 / 100 Other: Meal Lunch Percent of Meal Consumed 100% Stool Size Large # Bowel Movements 1 Weight 153 kg Blood Glucose* 92 Hemodialysis Net Fluid Removed 5000 (mL) Patient Weight 02/08/19 23:59 Weight 153 kg - Lab 02/08/19 05:45 02/08/19 10:49 Consult Discharge Plan - Plan Referrals: NONE,PCP [Primary Care Provider] -
[2019-02-09] MEDS: *HR* Heparin 5,000 UNIT/ML VIAL SQ SCH (04:04)
[2019-02-09] MEDS: *HR* OxyCODONE/APAP 10/325 TABLET PO PRN ×2 (04:40→08:56)
[2019-02-09 04:54] LABS: Hematocrit 37.3 % (37.5-50.1); Hemoglobin 11.5 g/dL (12.9-16.9); Mean Corpuscular HGB Conc 30.8 g/dL (31.6-35.5); Mean Corpuscular Hemoglobin 28.9 pg (28.0-33.3); Mean Corpuscular Volume 93.7 fL (83.0-100.0); Mean Platelet Volume 9.8 fL (9.4-12.4); Platelet Count 167 K/mcL (140-400); Red Blood Count 3.98 M/mcL (4.19-5.50); Red Cell Distribution Width 14.6 % (11.5-14.5)
[2019-02-09 05:17] LABS: Calcium 8.7 mg/dL (8.6-10.3); Potassium 5.9 mEq/L (3.5-5.1)
[2019-02-09] MEDS: amLODIPine 5 MG TABLET PO SCH (08:57)
[2019-02-09] MEDS: Sennosides/Docusate Sodium TABLET PO SCH (08:57)
[2019-02-09] MEDS ORDERED: Heparin 1,000 UNITS/500 mL 500 ML ONE (10:38)
[2019-02-09] MEDS ORDERED: *HR* FentaNYL (PF) 100 MCG/2 ML VIAL IVP ONE (10:51)
[2019-02-09] MEDS ORDERED: *HR* Midazolam HCl 2 MG/2 ML VIAL IVP ONE (10:51)
[2019-02-09] MEDS ORDERED: ceFAZolin 2,000 MG in D5% in Water 100 ML IVPB ONE (10:51)
--- NOTE | 2019-02-09 10:52 | Pre-Sedation Evaluation ---
Pre-sedation evaluation - Pre-sedation checklist Date of procedure: 02/09/19 Procedure: Permacath placement Recent Vitals: Last Vital Signs Temp 98.3 F 02/09/19 07:40 Pulse 79 02/09/19 07:40 Resp 18 02/09/19 07:40 BP 122/74 02/09/19 07:40 Pulse Ox 96 02/09/19 07:40 H&P (including ROS) documented in medical record: Yes Previous reaction to sedatives/anesthetics: Unknown Dietary Status: NPO after Midnight Dentition: No loose teeth or bridges Possible difficult airway: No ASA Classification *see protocol: CLASS II-Mild systemic disease Plan of Care: Pt appropriate candidate for procedure/moderate/conscious sedation, Risks/benefits of procedure/sedation discussed w/ patient/family
[2019-02-09] MEDS ORDERED: 0.9 % Sodium Chloride 500 ML ONE (10:55)
[2019-02-09] MEDS ORDERED: CeFAZolin Premix DUPLEX 2,000 MG/50 ML BAG IVPB ONE (11:00)
[2019-02-09] MEDS ORDERED: *HR* OxyCODONE/APAP 10/325 TABLET PO PRN (11:00)
[2019-02-09] MEDS ORDERED: *HR* OxyCODONE/APAP 5/325 TABLET PO PRN (11:00)
[2019-02-09] MEDS ORDERED: Ondansetron 4 MG/2 ML VIAL ONE (11:37)
[2019-02-09] MEDS ORDERED: Ondansetron 4 MG/2 ML VIAL IVP ONE (11:38)
[2019-02-09] MEDS ORDERED: *HR* Heparin 5,000 UNIT/ML VIAL ONE (11:46)
[2019-02-09 11:49] VITALS: BP 173/107
--- NOTE | 2019-02-09 11:55 | Discharge Summary ---
<Quinten Paul - Last Filed: 02/09/19 12:04> - NOTES TO OUTPATIENT PROVIDER Notes to Outpatient Provider: Admitted for thrombosed fistula. Had placement of perm cath, will be d/c'd to [place] for f/u with Dr. Wolf for possible revision of fistula. Office# [phone] Orders not resulted at time of discharge: Pending orders 02/05/19 10:14 Culture,Blood [BC] Stat 02/09/19 IR cvc insrt tunnel wo prt/patient navigator [IR] Routine IR us guide vascular access [IR] Routine 02/10/19 04:00 BMP [Basic Metabolic Panel] AM 0400 Complete Blood Count w/o Diff [HEME] AM 0400 02/11/19 04:00 BMP [Basic Metabolic Panel] AM 0400 Complete Blood Count w/o Diff [HEME] AM 0400 02/12/19 04:00 BMP [Basic Metabolic Panel] AM 0400 Complete Blood Count w/o Diff [HEME] AM 0400 Date of Encounter: 02/09/19 Time of Encounter: 08:25 - Discharge Diagnosis (1) Hyperkalemia Priority: Secondary Status: Acute (2) Anemia in CKD (chronic kidney disease) Priority: Secondary Status: Chronic Qualifiers: Chronic kidney disease stage: on chronic dialysis Qualified Code(s): N18.6 - End stage renal disease; D63.1 - Anemia in chronic kidney disease; Z99.2 - Dependence on renal dialysis (3) Obesity, morbid, BMI 40.0-49.9 Priority: Secondary Status: Chronic (4) Tobacco abuse Priority: Secondary Status: Chronic (5) HTN (hypertension), benign Priority: Secondary Status: Chronic (6) Systolic CHF Priority: Secondary Status: Chronic Qualifiers: Heart failure chronicity: chronic Qualified Code(s): I50.22 - Chronic systolic (congestive) heart failure (7) COPD exacerbation Priority: Secondary Status: Acute (8) ESRD needing dialysis Priority: Secondary Status: Chronic (9) Thrombosis due to vascular prosthetic devices, implants and grafts, initial encounter Priority: Primary Status: Acute Hospital course: Mr. Snyder is a 33 year old male with history of ESRD and fistula and left brachiocephalic region. He recently started experiencing pain, swelling, Sears erythematous leakage of the fistula and had concerns that there may be an infection there. Upon presentation there was evidence of thrombosis of this fistula. 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 Wolf of [facility] to evaluate and possibly do a revision of the fistula when he returned to the hospital on 02/09/19. The patient remained in the hospital with a temporary hemodialysis catheter and receive hemodialysis in the meantime. He received a tunneled hemodialysis line with interventional radiology today and will be discharged to follow-up with [facility] today. Discharge discussed with: patient, nurse, social work, case management, mobile sales consultant - Time Spent with Patient Total time spent providing and/or coordinating discharge services: - Discharge Medications Prescriptions: Continued Sevelamer [Renvela] 2,400 mg PO TIDWM Aspirin [Lo-Dose Aspirin EC] 81 mg PO DAILY Metoprolol Succinate [Toprol Xl] 100 mg PO DAILY amLODIPine [Norvasc] 5 mg PO DAILY Ergocalciferol (VITAMIN D2) [Vitamin D2] 50,000 unit PO QWEEK Home Medications: Sevelamer [Renvela] 2,400 mg PO TIDWM 04/25/17 [History] Aspirin [Lo-Dose Aspirin EC] 81 mg PO DAILY 08/03/18 [History] Metoprolol Succinate [Toprol Xl] 100 mg PO DAILY 01/07/19 [History] Ergocalciferol (VITAMIN D2) [Vitamin D2] 50,000 unit PO QWEEK 02/05/19 [History] amLODIPine [Norvasc] 5 mg PO DAILY 02/05/19 [History] Allergies/Adverse Reactions: Allergy/AdvReac Type Severity Reaction Status Date / Time No Known Allergies Allergy Verified 02/05/19 19:49 Date of admission: 02/05/19 18:11 Primary care physician: PCP NONE Consults: 02/05/19 14:35 Consult to Interventional Radiology [CONS] Routine Consulting Provider: Radiology Interventional Cols Reason for Consult: HD Access Time Notified: 14:36 Call Completed: Yes 02/05/19 16:30 Consult to Dialysis [CONS] ONCE 02/06/19 08:30 Consult to Dialysis [CONS] ONCE 02/06/19 14:21 Consult to Nephrology [CONS] Routine Consulting Provider: Kidney Amelia/STEPH/JEANETTE/NICOLASA Reason for Consult: ESRD on HD Call Completed: Yes 02/08/19 08:15 Consult to Dialysis [CONS] ONCE 02/08/19 16:29 Consult to Interventional Radiology [CONS] Routine Consulting Provider: Radiology Interventional Cols Reason for Consult: insert tunneled HD cath Call Completed: No Discharging clinician: Quinten Paul Anticipated date of discharge: 02/09/19 - Constitutional Vitals: Temp Pulse Resp BP Pulse Ox 98.3 F 94 24 173/107 100 02/09/19 07:40 02/09/19 11:48 02/09/19 11:48 02/09/19 11:48 02/09/19 11:48 Exam: Gen: Vitals noted. No acute distress. Eyes: anicteric sclerae, moist conjunctivae; no lid-lag; Pupils equal and reactive to light HENT: Atraumatic; oropharynx clear with moist mucous membranes and no mucosal ulcerations; normal hard and soft palate Neck: Trachea midline; supple, no thyromegaly or lymphadenopathy. Hemodialysis catheter in place on right IJ. Cardiac: RRR, no murmur, +S1/S2 Pulmonary: CTA bilaterally, no wheezes, rales or rhonchi, equal chest expansion Abdomen: soft, nontender, no guarding. No masses or hepatosplenomegaly MSK: ROM intact, no joint swelling noted Extremities: Trace BLE edema, nontender calf, no cyanosis or clubbing. Left brachiocephalic fistula noted with ecchymosis present and some erythema. Patient says that there is significant tenderness there, I did not palpate it at this time. Skin: Normal temperature, turgor and texture; no rash, ulcers or subcutaneous nodules Neuro: moves all extremities, no focal deficits. Psych: Appropriate mood and behavior. A&Ox3 - Patient Status Disposition: Home, Self-Care Condition: Fair Functional capacity at discharge: uses cane/walker Overall status at discharge: patient is back to baseline - Discharge Instructions Follow Up With: NONE,PCP [Primary Care Provider] - Additional Instructions: Patient is to discharge and go to [facility] to resume care with Dr. Wolf. He can call his office at [phone] for more detailed instructions regarding appointments and locations. - Diet and Activity Activity: increase activity as tolerated Diet: other (Renal diet) <Claudio,Ralph A - Last Filed: 02/09/19 13:50> Orders not resulted at time of discharge: Pending orders 02/05/19 10:14 Culture,Blood [BC] Stat 02/10/19 04:00 BMP [Basic Metabolic Panel] AM 0400 Complete Blood Count w/o Diff [HEME] AM 0400 02/11/19 04:00 BMP [Basic Metabolic Panel] AM 0400 Complete Blood Count w/o Diff [HEME] AM 0400 02/12/19 04:00 BMP [Basic Metabolic Panel] AM 0400 Complete Blood Count w/o Diff [HEME] AM 0400 Date of Encounter: 02/09/19 - Discharge Diagnosis (1) Obesity, morbid, BMI 40.0-49.9 Status: Chronic (2) Tobacco abuse Status: Chronic (3) Anemia in CKD (chronic kidney disease) Status: Chronic Qualifiers: Chronic kidney disease stage: on chronic dialysis Qualified Code(s): N18.6 - End stage renal disease; D63.1 - Anemia in chronic kidney disease; Z99.2 - Dependence on renal dialysis (4) Hyperkalemia Status: Resolved (5) HTN (hypertension), benign Status: Chronic (6) Systolic CHF Status: Chronic Assessment and Plan: Not on CHEIKH due to renal disease Qualifiers: Heart failure chronicity: chronic Qualified Code(s): I50.22 - Chronic systolic (congestive) heart failure (7) COPD exacerbation Status: Resolved (8) ESRD needing dialysis Status: Chronic (9) Thrombosis due to vascular prosthetic devices, implants and grafts, initial encounter Status: Acute Hospital course: Mr. Snyder is a 33 year old male - Time Spent with Patient Total time spent providing and/or coordinating discharge services: 35min Date of admission: 02/05/19 18:11 Primary care physician: PCP NONE Consults: 02/05/19 14:35 Consult to Interventional Radiology [CONS] Routine Consulting Provider: Radiology Interventional Cols Reason for Consult: HD Access Time Notified: 14:36 Call Completed: Yes 02/05/19 16:30 Consult to Dialysis [CONS] ONCE 02/06/19 08:30 Consult to Dialysis [CONS] ONCE 02/06/19 14:21 Consult to Nephrology [CONS] Routine Consulting Provider: Kidney Amelia/STEPH/JEANETTE/NICOALSA Reason for Consult: ESRD on HD Call Completed: Yes 02/08/19 08:15 Consult to Dialysis [CONS] ONCE 02/08/19 16:29 Consult to Interventional Radiology [CONS] Routine Consulting Provider: Radiology Interventional Cols Reason for Consult: insert tunneled HD cath Call Completed: No - Constitutional Vitals: Temp Pulse Resp BP Pulse Ox 98.3 F 94 24 173/107 100 02/09/19 07:40 02/09/19 11:48 02/09/19 11:48 02/09/19 11:48 02/09/19 11:48 - Attending Attestation I examined this patient and my medical decision-making was reviewed with the Resident Physician on 02/09/19. I agree with the documented findings, disposition and treatment plan as described except to the extent set forth below. Mr Snyder has been admitted for thrombosed fistula and hyperkalemia. He is to follow with Dr. Wolf in [place] for revison. He is currently afebrile. Further dialysis per nephrology. Exam alert comfortable Mucus membranes dry Heart not tachy No wheeze abd soft Plan D/C today for further followup for fistula revision
--- NOTE | 2019-02-09 12:08 | IR Procedure Note ---
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
--- NOTE | 2019-02-10 09:10 | Electrocardiograph Report ---
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 DEVIATION AND MODERATE T-WAVE ABNORMALITY, CONSIDER LATERAL ISCHEMIA ST DEVIATION AND MODERATE T-WAVE ABNORMALITY, CONSIDER INFERIOR ISCHEMIA Electronically Signed On 02-10-2019 9:09:21 EDT by Demond Padilla
== END 2019-02-09 15:30 | disposition home or self-care (01) | DRG 314 ==
LOC: EMEROOARM 09:03 → 2ANU 09:03 → SUATTDRO 18:11
PROVIDERS: ADMIT Internal Medicine Nephrology; ATTEND Internal Medicine
PROC: IRPERMA (2019-02-09 14:00)

== ENCOUNTER 2019-04-06 20:11 | Inpatient (IN) ==
[2019-04-06 20:53] LABS: Basophils # 0.1 K/mcL (0.0-0.2); Basophils % 0.8 %; Eosinophils # 0.4 K/mcL (0.0-0.6); Eosinophils % 3.8 %; Hematocrit 35.7 % (37.5-50.1); Hemoglobin 11.7 g/dL (12.9-16.9); Immature Granulocytes % 0.3 % (0-4); Lymphocytes # 1.2 K/mcL (0.6-4.6); Lymphocytes % 13.2 %; Mean Corpuscular HGB Conc 32.8 g/dL (31.6-35.5); Mean Corpuscular Hemoglobin 29.6 pg (28.0-33.3); Mean Corpuscular Volume 90.4 fL (83.0-100.0); Mean Platelet Volume 10.6 fL (9.4-12.4); Monocytes # 0.8 K/mcL (0.0-1.3); Monocytes % 8.4 %; Neutrophils # 6.7 K/mcL (1.6-8.9); Platelet Count 158 K/mcL (140-400); Red Blood Count 3.95 M/mcL (4.19-5.50); Red Cell Distribution Width 14.4 % (11.5-14.5); Segmented Neutrophils % 73.5 %; White Blood Count 9.2 K/mcL (4.3-11.1)
[2019-04-06 21:02] LABS: INR 1.3; Prothrombin Time 14.4 Seconds (9.4-12.1)
[2019-04-06 21:04] LABS: Activated Partial Thrombo Time 38.8 Seconds (26.0-36.0)
[2019-04-06 21:08] LABS: Albumin 3.5 g/dL (3.5-5.7); Albumin/Globulin Ratio 1.3 (1.1-2.2); Bilirubin,Direct 0.1 mg/dL (0.0-0.2); Bilirubin,Indirect 0.3 mg/dL (0.0-1.2); Bilirubin,Total 0.4 mg/dL (0.3-1.0); Globulin 2.8 g/dL (2.4-3.5); Total Protein 6.3 g/dL (6.4-8.9)
[2019-04-06 21:15] LABS: Calcium 9.4 mg/dL (8.6-10.3); Potassium 6.5 mEq/L (3.5-5.1); Troponin I 0.04 ng/mL (< 0.04)
[2019-04-06] MEDS ORDERED: *HR* Dextrose 50 % in Water (Syg) 50 ML SYRINGE IVP STA (21:16)
[2019-04-06] MEDS ORDERED: Albuterol 2.5 MG/3 ML NEBULIZER IH ONE (21:16)
[2019-04-06] MEDS ORDERED: Insulin Human Regular 10 UNIT in 0.9 % Sodium Chloride 10 ML IV STA (21:16)
--- NOTE | 2019-04-06 21:17 | Emergency Department Note ---
Disposition Clinical Impression: Missed dialysis, Hyperkalemia Dyspnea Qualifiers: Dyspnea type: dyspnea on exertion Qualified Code(s): R06.09 - Other forms of dyspnea CKD (chronic kidney disease) Qualifiers: Chronic kidney disease stage: on chronic dialysis Qualified Code(s): N18.6 - End stage renal disease Disposition: Admitted As Inpatient Condition: Good Referrals: NONE,PCP [Primary Care Provider] - Forms: ED Satisfaction Letter Time of Disposition: 22:22 General Adult HPI - General Chief complaint: ED Shortness of Breath/Dyspnea Stated complaint: CHANDLER Time Seen by Provider: 04/06/19 20:12 Source: patient, EMS Limitations: no limitations Nursing Notes Reviewed: Yes Vital Signs Reviewed: Yes - History of Present Illness HPI Narrative: Male patient with a history of chronic kidney disease who is on dialysis has missed several appointments of dialysis secondary to social consultations. Reporting increased shortness of breath and general weakness and fatigue. States he feels fluid overloaded. He has been drinking copious amounts of fluid all weekend because he was hot. He denies chest pain but does report shortness of breath. States it is hard for him to lay on his back secondary to his shortness of breath. He denies any fevers or chills. No sick contacts. Does have a suprapubic catheter he states is he makes a scant amount of urine. We will get a basic lab workup on patient as well as a chest x-ray. Pain Scale: 9 - Related Data Home Medications Medication Instructions Recorded Confirmed Sevelamer [Renvela] 2,400 mg PO TIDWM 04/25/17 03/16/19 Aspirin [Lo-Dose Aspirin EC] 81 mg PO DAILY 08/03/18 03/16/19 Metoprolol Succinate [Toprol Xl] 100 mg PO DAILY 01/07/19 03/16/19 Ergocalciferol (VITAMIN D2) 50,000 unit PO MO 02/05/19 03/16/19 [Vitamin D2] Previous Rx's Medication Instructions Recorded Lisinopril [Zestril] 10 mg PO DAILY #30 tablet 03/17/19 Allergies Allergy/AdvReac Type Severity Reaction Status Date / Time No Known Allergies Allergy Verified 03/15/19 09:27 All systems ED: reviewed and negative except as stated. Review of Systems: As Per HPI Constitutional: Denies: fever, chills ENT ED: Denies: congestion Cardiovascular: Denies: chest pain, syncope Respiratory: Reports: dyspnea Gastrointestinal: Denies: abdominal pain, nausea, vomiting, diarrhea, hematemesis, melena, hematochezia Musculoskeletal: Reports: myalgia Neurological: Reports: weakness Past Medical History - Past Medical History Attestation: Yes The following information was validated with the patient. Source: patient Medical history: Reports: cardiomyopathy, cirrhosis, CHF, dialysis, hyperlipidemia, hypertension, liver disease, renal disease, thyroid disease, venous stasis, other Surgical history: Reports: orthopedic, other, vascular surgery Psychiatric history: Reports: anxiety, depression - Social History Smoking Status: Current every day smoker Smokeless Tobacco Status: No Alcohol use: Reports: none Drug use: Reports: none Physical Exam - General Limitations: no limitations General appearance: alert, in no apparent distress - Head Head exam: atraumatic, normocephalic, normal inspection - Eye Eye exam: Present: normal appearance, PERRL, EOMI - ENT ENT exam: normal exam, normal oropharynx, mucous membranes moist - Neck Neck exam: Present: normal inspection, full ROM, trachea midline - Chest Chest inspection: Present: normal inspection, symmetric chest wall rise - Respiratory Respiratory exam: Present: other (Wet lung sounds throughout.). Absent: respiratory distress, accessory muscle use - Cardiovascular Cardiovascular exam: Present: regular rate, normal rhythm, normal heart sounds - Extremities Exam Extremities exam: Present: normal inspection, full ROM, normal capillary refill. Absent: tenderness, pedal edema, calf tenderness - Back Exam Back exam: Present: normal inspection, full ROM. Absent: tenderness - Neurological Exam Neurological exam: Present: alert, oriented X3 - Psychiatric Psychiatric exam: Present: normal affect, normal mood - Skin Skin exam: Present: warm, dry, intact, normal color Course Course Narrative: Patient with skipped dialysis treatments. Hyperkalemia. Pulmonary vascular congestion on chest x-ray. He currently is on 2 L of oxygen with oxygen saturations 100%. No elevated T-wave. We did start patient on insulin and glucose. Provide him with Kayexalate as well. He does have a suprapubic catheter. He denies any fevers or chills. Does not appear to be in acute respiratory distress. Patient does have wet lung sounds. Patient reports that he was watching his brother's kids this weekend and missed his dialysis. He does report some shortness of breath but no chest pain. States he does feel fluid overloaded. Has a hard time laying flat on his back secondary to respiratory distress however he is laying on his side and does not appear to be in distress. We did discuss the patient with Dr. Mendoza at her and he will be going to dialysis tonight. - Consultations Consultation #1: I spoke with Dr. Maravilla the elementary school principal. He will be getting the dialysis team together for the patient to receive dialysis tonight. Time: 21:50 Vital Signs Temperature 98.0 F 04/06/19 20:17 Pulse Rate 88 04/06/19 20:17 Respiratory Rate 17 04/06/19 20:17 Blood Pressure 167/128 04/06/19 20:17 O2 Sat by Pulse Oximetry 100 04/06/19 20:17 Temperature 98.0 F 04/06/19 20:17 Pulse Rate 99 04/06/19 21:39 Respiratory Rate 16 04/06/19 21:39 Blood Pressure 169/113 04/06/19 21:39 O2 Sat by Pulse Oximetry 99 04/06/19 21:39 Oxygen Delivery Oxygen Delivery Nasal Cannula Medical Decision Making - Medical Records Medical records reviewed: Yes I reviewed the patient's medical records. - Lab Data Lab results reviewed: Yes I reviewed the patient's lab results. Result diagrams: 04/06/19 20:35 04/06/19 20:35 Lab Results 04/06/19 04/06/19 04/06/19 Range/Units 20:35 20:35 20:35 WBC (4.3-11.1) K/mcL RBC (4.19-5.50) M/mcL Hgb (12.9-16.9) g/dL Hct (37.5-50.1) % MCV (83.0-100.0) fL MCH (28.0-33.3) pg MCHC (31.6-35.5) g/dL RDW (11.5-14.5) % Plt Count (140-400) K/mcL MPV (9.4-12.4) fL Immature Gran % (0-4) % Seg Neutrophils % % Lymphocytes % % Monocytes % % Eosinophils % % Basophils % % Neutrophils # (1.6-8.9) K/mcL Lymphocytes # (0.6-4.6) K/mcL Monocytes # (0.0-1.3) K/mcL Eosinophils # (0.0-0.6) K/mcL Basophils # (0.0-0.2) K/mcL PT 14.4 H (9.4-12.1) Seconds INR 1.3 APTT 38.8 H (26.0-36.0) Seconds Sodium (136-145) mEq/L Potassium (3.5-5.1) mEq/L Chloride (98-107) mEq/L Carbon Dioxide (23-29) mEq/L BUN (6-20) mg/dL Creatinine (0.70-1.30) mg/dL Est GFR ( Amer) (> 60) Est GFR (Non-Af Amer) (> 60) BUN/Creatinine Ratio (6-26) Glucose (70-105) mg/dL Calculated Osmolality (280-300) Calcium (8.6-10.3) mg/dL Magnesium (1.6-2.6) mg/dL Total Bilirubin 0.4 (0.3-1.0) mg/dL Direct Bilirubin 0.1 (0.0-0.2) mg/dL Indirect Bilirubin 0.3 (0.0-1.2) mg/dL AST 9 L (13-39) Units/L ALT 5 L (7-52) Units/L Alkaline Phosphatase 128 H (34-104) Units/L Troponin I (< 0.04) ng/mL B-Natriuretic Peptide 3034 H (Less than 100) pg/mL Serum Total Protein 6.3 L (6.4-8.9) g/dL Albumin 3.5 (3.5-5.7) g/dL Globulin 2.8 (2.4-3.5) g/dL Albumin/Globulin Ratio 1.3 (1.1-2.2) Lipase (11-82) Units/L 04/06/19 04/06/19 04/06/19 Range/Units 20:35 20:35 20:35 WBC 9.2 (4.3-11.1) K/mcL RBC 3.95 L (4.19-5.50) M/mcL Hgb 11.7 L (12.9-16.9) g/dL Hct 35.7 L (37.5-50.1) % MCV 90.4 (83.0-100.0) fL MCH 29.6 (28.0-33.3) pg MCHC 32.8 (31.6-35.5) g/dL RDW 14.4 (11.5-14.5) % Plt Count 158 (140-400) K/mcL MPV 10.6 (9.4-12.4) fL Immature Gran % 0.3 (0-4) % Seg Neutrophils % 73.5 % Lymphocytes % 13.2 % Monocytes % 8.4 % Eosinophils % 3.8 % Basophils % 0.8 % Neutrophils # 6.7 (1.6-8.9) K/mcL Lymphocytes # 1.2 (0.6-4.6) K/mcL Monocytes # 0.8 (0.0-1.3) K/mcL Eosinophils # 0.4 (0.0-0.6) K/mcL Basophils # 0.1 (0.0-0.2) K/mcL PT (9.4-12.1) Seconds INR APTT (26.0-36.0) Seconds Sodium 135 L (136-145) mEq/L Potassium 6.5 H* (3.5-5.1) mEq/L Chloride 98 (98-107) mEq/L Carbon Dioxide 20 L (23-29) mEq/L BUN 95 H (6-20) mg/dL Creatinine 13.40 H (0.70-1.30) mg/dL Est GFR ( Amer) 5 L (> 60) Est GFR (Non-Af Amer) 4 L (> 60) BUN/Creatinine Ratio 7 (6-26) Glucose 99 (70-105) mg/dL Calculated Osmolality 309 H (280-300) Calcium 9.4 (8.6-10.3) mg/dL Magnesium 2.7 H (1.6-2.6) mg/dL Total Bilirubin (0.3-1.0) mg/dL Direct Bilirubin (0.0-0.2) mg/dL Indirect Bilirubin (0.0-1.2) mg/dL AST (13-39) Units/L ALT (7-52) Units/L Alkaline Phosphatase (34-104) Units/L Troponin I 0.04 H* (< 0.04) ng/mL B-Natriuretic Peptide (Less than 100) pg/mL Serum Total Protein (6.4-8.9) g/dL Albumin (3.5-5.7) g/dL Globulin (2.4-3.5) g/dL Albumin/Globulin Ratio (1.1-2.2) Lipase 16 (11-82) Units/L - Radiology Data Radiology results reviewed: Yes I reviewed the patient's radiology results. Chest X-Ray 04/06/19 20:21 IMPRESSION: Pulmonary vascular congestion. Correlate with clinical evidence of developing pulmonary edema. No acute abnormality detected otherwise. D/ / Mihai Morales MD / Mihai Morales MD Interpreting Provider: Mihai Morales MD - EKG Data EKG #1 EKG attestation: Yes I reviewed and interpreted this EKG. EKG results narrative: Normal sinus rhythm at a rate 84. MD interval is 716. QRS duration is 109. QT is 387. QTC is 458. No signs of acute ischemia. There is T-wave inversion diffusely. No significant change from previous EKG dated 03/15/2019.
[2019-04-06 21:47] LABS: Magnesium 2.7 mg/dL (1.6-2.6)
[2019-04-06] MEDS ORDERED: *HR* Dextrose 50 % in Water (Syg) 50 ML SYRINGE ONE (21:51)
--- NOTE | 2019-04-06 22:01 | Emergency Department Note ---
Disposition Clinical Impression: Missed dialysis, Hyperkalemia Dyspnea Qualifiers: Dyspnea type: dyspnea on exertion Qualified Code(s): R06.09 - Other forms of dyspnea CKD (chronic kidney disease) Qualifiers: Chronic kidney disease stage: on chronic dialysis Qualified Code(s): N18.6 - End stage renal disease Disposition: Admitted As Inpatient Condition: Good Referrals: NONE,PCP [Primary Care Provider] - Forms: ED Satisfaction Letter Time of Disposition: 22:25 General Adult HPI - General Chief complaint: ED Shortness of Breath/Dyspnea Stated complaint: CHANDLER Time Seen by Provider: 04/06/19 20:12 Source: patient, EMS Limitations: no limitations - History of Present Illness Pain Scale: 9 - Related Data Home Medications Medication Instructions Recorded Confirmed Sevelamer [Renvela] 2,400 mg PO TIDWM 04/25/17 03/16/19 Aspirin [Lo-Dose Aspirin EC] 81 mg PO DAILY 08/03/18 03/16/19 Metoprolol Succinate [Toprol Xl] 100 mg PO DAILY 01/07/19 03/16/19 Ergocalciferol (VITAMIN D2) 50,000 unit PO MO 02/05/19 03/16/19 [Vitamin D2] Previous Rx's Medication Instructions Recorded Lisinopril [Zestril] 10 mg PO DAILY #30 tablet 03/17/19 Allergies Allergy/AdvReac Type Severity Reaction Status Date / Time No Known Allergies Allergy Verified 03/15/19 09:27 Constitutional: Denies: fever, chills ENT ED: Denies: congestion Cardiovascular: Denies: chest pain, syncope Respiratory: Reports: dyspnea Gastrointestinal: Denies: abdominal pain, nausea, vomiting, diarrhea, hematemesis, melena, hematochezia Musculoskeletal: Reports: myalgia Neurological: Reports: weakness Past Medical History - Past Medical History Medical history: Reports: cardiomyopathy, cirrhosis, CHF, dialysis, hyperlipidemia, hypertension, liver disease, renal disease, thyroid disease, venous stasis, other Surgical history: Reports: orthopedic, other, vascular surgery Psychiatric history: Reports: anxiety, depression - Social History Smoking Status: Current every day smoker Smokeless Tobacco Status: No Alcohol use: Reports: none Drug use: Reports: none Physical Exam - General Limitations: no limitations General appearance: alert, in no apparent distress Course Vital Signs Temperature 98.0 F 04/06/19 20:17 Pulse Rate 88 04/06/19 20:17 Respiratory Rate 17 04/06/19 20:17 Blood Pressure 167/128 04/06/19 20:17 O2 Sat by Pulse Oximetry 100 04/06/19 20:17 Temperature 98.0 F 04/06/19 20:17 Pulse Rate 99 04/06/19 21:39 Respiratory Rate 16 04/06/19 21:39 Blood Pressure 169/113 04/06/19 21:39 O2 Sat by Pulse Oximetry 99 04/06/19 21:39 Oxygen Delivery Oxygen Delivery Nasal Cannula Medical Decision Making - Medical Records Medical records reviewed: Yes I reviewed the patient's medical records. - Lab Data Lab results reviewed: Yes I reviewed the patient's lab results. Result diagrams: 04/06/19 20:35 04/06/19 20:35 Lab Results 04/06/19 04/06/19 04/06/19 Range/Units 20:35 20:35 20:35 WBC (4.3-11.1) K/mcL RBC (4.19-5.50) M/mcL Hgb (12.9-16.9) g/dL Hct (37.5-50.1) % MCV (83.0-100.0) fL MCH (28.0-33.3) pg MCHC (31.6-35.5) g/dL RDW (11.5-14.5) % Plt Count (140-400) K/mcL MPV (9.4-12.4) fL Immature Gran % (0-4) % Seg Neutrophils % % Lymphocytes % % Monocytes % % Eosinophils % % Basophils % % Neutrophils # (1.6-8.9) K/mcL Lymphocytes # (0.6-4.6) K/mcL Monocytes # (0.0-1.3) K/mcL Eosinophils # (0.0-0.6) K/mcL Basophils # (0.0-0.2) K/mcL PT 14.4 H (9.4-12.1) Seconds INR 1.3 APTT 38.8 H (26.0-36.0) Seconds Sodium (136-145) mEq/L Potassium (3.5-5.1) mEq/L Chloride (98-107) mEq/L Carbon Dioxide (23-29) mEq/L BUN (6-20) mg/dL Creatinine (0.70-1.30) mg/dL Est GFR ( Amer) (> 60) Est GFR (Non-Af Amer) (> 60) BUN/Creatinine Ratio (6-26) Glucose (70-105) mg/dL Calculated Osmolality (280-300) Calcium (8.6-10.3) mg/dL Magnesium (1.6-2.6) mg/dL Total Bilirubin 0.4 (0.3-1.0) mg/dL Direct Bilirubin 0.1 (0.0-0.2) mg/dL Indirect Bilirubin 0.3 (0.0-1.2) mg/dL AST 9 L (13-39) Units/L ALT 5 L (7-52) Units/L Alkaline Phosphatase 128 H (34-104) Units/L Troponin I (< 0.04) ng/mL B-Natriuretic Peptide 3034 H (Less than 100) pg/mL Serum Total Protein 6.3 L (6.4-8.9) g/dL Albumin 3.5 (3.5-5.7) g/dL Globulin 2.8 (2.4-3.5) g/dL Albumin/Globulin Ratio 1.3 (1.1-2.2) Lipase (11-82) Units/L 04/06/19 04/06/19 04/06/19 Range/Units 20:35 20:35 20:35 WBC 9.2 (4.3-11.1) K/mcL RBC 3.95 L (4.19-5.50) M/mcL Hgb 11.7 L (12.9-16.9) g/dL Hct 35.7 L (37.5-50.1) % MCV 90.4 (83.0-100.0) fL MCH 29.6 (28.0-33.3) pg MCHC 32.8 (31.6-35.5) g/dL RDW 14.4 (11.5-14.5) % Plt Count 158 (140-400) K/mcL MPV 10.6 (9.4-12.4) fL Immature Gran % 0.3 (0-4) % Seg Neutrophils % 73.5 % Lymphocytes % 13.2 % Monocytes % 8.4 % Eosinophils % 3.8 % Basophils % 0.8 % Neutrophils # 6.7 (1.6-8.9) K/mcL Lymphocytes # 1.2 (0.6-4.6) K/mcL Monocytes # 0.8 (0.0-1.3) K/mcL Eosinophils # 0.4 (0.0-0.6) K/mcL Basophils # 0.1 (0.0-0.2) K/mcL PT (9.4-12.1) Seconds INR APTT (26.0-36.0) Seconds Sodium 135 L (136-145) mEq/L Potassium 6.5 H* (3.5-5.1) mEq/L Chloride 98 (98-107) mEq/L Carbon Dioxide 20 L (23-29) mEq/L BUN 95 H (6-20) mg/dL Creatinine 13.40 H (0.70-1.30) mg/dL Est GFR ( Amer) 5 L (> 60) Est GFR (Non-Af Amer) 4 L (> 60) BUN/Creatinine Ratio 7 (6-26) Glucose 99 (70-105) mg/dL Calculated Osmolality 309 H (280-300) Calcium 9.4 (8.6-10.3) mg/dL Magnesium 2.7 H (1.6-2.6) mg/dL Total Bilirubin (0.3-1.0) mg/dL Direct Bilirubin (0.0-0.2) mg/dL Indirect Bilirubin (0.0-1.2) mg/dL AST (13-39) Units/L ALT (7-52) Units/L Alkaline Phosphatase (34-104) Units/L Troponin I 0.04 H* (< 0.04) ng/mL B-Natriuretic Peptide (Less than 100) pg/mL Serum Total Protein (6.4-8.9) g/dL Albumin (3.5-5.7) g/dL Globulin (2.4-3.5) g/dL Albumin/Globulin Ratio (1.1-2.2) Lipase 16 (11-82) Units/L - Radiology Data Radiology results reviewed: Yes I reviewed the patient's radiology results. - EKG Data EKG #1 EKG attestation: Yes I reviewed and interpreted this EKG. EKG results narrative: NSR with rate of 84. NO STEMI. no hyperacute T wave, QT prolongation, or QRS widening. mild ST depression globally without change from 03/15/19. 2026 Attestation Statement - Attestation Attestation: I reviewed the residents documentation and agree with the residents assessment and plan of care. I have personally had face to face time with the patient. (Brief History, Brief Exam, and MDM) I personally supervised and was present for the muro/critical portions of the following procedures completed by the resident: EKG 33 year old male presents to the ED with complaints of fluid overloaded seoncdary to missing dialysis and has an elevated potassium of 6.7 and troponin elevation that is stable in addition to his BNP being elevated. We have startd hyperkalemia therapy and have consulted with Dr. Maravilla with neprhology and he will do dialysis tonight. Admit to medicine.
[2019-04-06] MEDS ORDERED: Naloxone 0.4 MG/ML INJ IVP PRN (22:45)
--- NOTE | 2019-04-06 22:45 | Internal Med History&Physical ---
<Raisa Vásquez - Last Filed: 04/07/19 03:23> Date of Encounter: 04/07/19 Time of Encounter: 22:43 Internal Medicine - H&P: HPI Admitted From: Emergency Dept History of present illness: Mr. Snyder is a 33 year old male with history of cirrhosis, CHF, end-stage renal disease, hyperlipidemia, hypertension, hypothyroidism, venous stasis who presents emergency department with complaints of shortness of breath. The patient states he has not had 2 of his dialysis appointment over the last week. This was secondary to being unable to find care for his friends kids. The patient states he has noticed swelling of bilateral lower extremities and shortness of breath on exertion. He denies any chest pain, nausea, vomiting, dysuria, hematuria, constipation, fever, rash, or confusion. In the emergency department the patient was found to be hypoxic requiring oxygen, anemia which appears his baseline, BUN elevated to 95, creatinine 13.4, potassium elevated at 6.5. BNP elevated at 3034, troponin 0.04. Chest Xr shows vascular congestion. The patient did not have changes on EKG. He was given 50 mg albuterol, 10 units insulin, dextrose as well as Kayexalate for hyperkalemia. Nephrology was consultative for emergent dialysis given the patient's hyp erkalemia and fluid overloaded status. Past Med Surg Social Fam HX - Past Medical History Attestation: Yes The following information was validated with the patient. Source: patient, old records reviewed Medical history: cardiomyopathy, cirrhosis, CHF, dialysis, hyperlipidemia, hyper tension, liver disease, renal disease, thyroid disease, venous stasis, other Additional medical history: ESRD w/ T, , SA HD; anemia, hyperparathyroid, inguinal and umbilical hernia, suprapubic cath, hyperkalemia, ascites, pleural effusions, neurogenic bladder, pneumonia, peritonitis, cellulitis, UTIs. Psychiatric history: anxiety, depression - Past Surgical History Surgical History: orthopedic, other, vascular surgery Additional surgical history: suprapubic cath placement. fistula placement left AC. Left arm skin graft - Social History Smoking Status: Current every day smoker Smokeless Tobacco Status: No Alcohol use: none Drug use: none - Family History Mother Adopted: No Living Status: Still Living Hx Family Cardiac Disorders: Yes (Stroke) Hx Family Respiratory Disorders: No Hx Family Cancer: No Hx Family GI Disorders: No Hx Family Endocrine Disorder: Yes (DM) Hx Family Neuromuscular Disorders: No Hx Family Neurologic Disorders: No Hx Family HEENT Disorders: No Hx Family Autoimmune Disorders: No Father Living Status: Hx Family Cardiac Disorders: Yes (CAD) Hx Family Respiratory Disorders: No Hx Family Cancer: No Hx Family GI Disorders: No Hx Family Endocrine Disorder: Yes (Diabetes) Hx Family Neuromuscular Disorders: No Hx Family Neurologic Disorders: No Hx Family HEENT Disorders: No Hx Family Autoimmune Disorders: No Internal Medicine - H&P: Meds Sevelamer [Renvela] 2,400 mg PO TIDWM 04/25/17 [History] Aspirin [Lo-Dose Aspirin EC] 81 mg PO DAILY 08/03/18 [History] Metoprolol Succinate [Toprol Xl] 100 mg PO DAILY 01/07/19 [History] Ergocalciferol (VITAMIN D2) [Vitamin D2] 50,000 unit PO QWEEK 02/05/19 [History] Lisinopril [Zestril] 10 mg PO DAILY 04/08/19 [History] Allergy/AdvReac Type Severity Reaction Status Date / Time No Known Allergies Allergy Verified 03/15/19 09:27 All Systems PM: A 10-system review of systems was performed and is negative for pertinent findings except as documented above in the HPI. - Constitutional Constitutional: fatigue, no fever(s), no falls - EENT Eyes: no blurry vision, no loss of vision - Cardiovascular Cardiovascular ROS IM: dyspnea, dyspnea on exertion, edema, no chest pain - Respiratory Respiratory: dyspnea, no cough, no wheezing, no stridor - Gastrointestinal Gastrointestinal: no abdominal pain, no diarrhea, no nausea, no vomiting - Genitourinary Genitourinary ROS male: no difficulty urinating, no dysuria - Musculoskeletal Musculoskeletal ROS IM: tingling (right foot, chronic), no arthralgias, no back pain - Integumentary Integumentary IM: no erythema, no rash - Neurological Neurological ROS: tingling, no confusion, no numbness - Psychiatric Psychiatric: no anxiety, no depression - Constitutional Vitals: Temp Pulse Resp BP Pulse Ox 98.0 F 99 16 169/113 99 04/06/19 20:17 04/06/19 21:39 04/06/19 21:39 04/06/19 21:39 04/06/19 21:39 Exam: General: Conversant. No apparent distress. Follow commands. Appears older than stated age. Obese. Neck: No JVD. Trachea midline. Neck supple. Eyes: PERRL. No scleral icterus. HENT: Normocephalic and atraumatic. Moist mucus membranes. Cardiovascular: Regular rate and rhythm. Normal S1 and S2. No murmurs appreciated. Normal capillary refill. Extremities well perfused with 2+ distal pulses bilaterally. 1+ edema, R>L Pulmonary: Crackles at bilateral bases. Not in respiratory distress. Speaks in full sentences. Abdomen: Soft, nondistended, and tontender. No bruits or masses. No guarding. No ascites Neuro: Alert and oriented x3. No slurred speech. No focal deficits noted. Admits hypersensitivity to right distal foot, chronic. Skin: No rashes noted on visualized skin. Right anterior chest wall tunneled catheter does not appear infected or dislodged. Left UE graft fistula without signs of infection, palpable thrill. Musculoskeletal: No bony abnormalities visualized. Moves all extremities. Psych: Normal mood. Pleasant. Makes appropriate eye contact. Internal Med - H&P Results - Labs CBC & Chem 7: 04/07/19 01:39 04/07/19 01:39 Labs: Short CBC 04/06/19 Range/Units 20:35 WBC 9.2 (4.3-11.1) K/mcL Hgb 11.7 L (12.9-16.9) g/dL Hct 35.7 L (37.5-50.1) % Plt Count 158 (140-400) K/mcL Neutrophils # 6.7 (1.6-8.9) K/mcL BMP 04/06/19 20:35 Sodium 135 L Potassium 6.5 H* Chloride 98 Carbon Dioxide 20 L BUN 95 H Creatinine 13.40 H Glucose 99 Calcium 9.4 Cardiac Enzymes 04/06/19 Range/Units 20:35 Troponin I 0.04 H* (< 0.04) ng/mL Liver Function 04/06/19 Range/Units 20:35 Total Bilirubin 0.4 (0.3-1.0) mg/dL Direct Bilirubin 0.1 (0.0-0.2) mg/dL AST 9 L (13-39) Units/L ALT 5 L (7-52) Units/L Alkaline Phosphatase 128 H (34-104) Units/L Albumin 3.5 (3.5-5.7) g/dL - Impressions ITS Impressions Chest X-Ray 04/06/19 20:21 IMPRESSION: Pulmonary vascular congestion. Correlate with clinical evidence of developing pulmonary edema. No acute abnormality detected otherwise. D/ / Mihai Morales MD / Mihai Morales MD Interpreting Provider: Mihai Morales MD - Assessment and Plan (1) Dyspnea Status: Acute Assessment and plan: * Chest x-ray shows vascular congestion consistent with fluid overload secondary to patient missing dialysis * Patient is stable on room air and does not appear dyspneic at this time * Does have crackles at bilateral bases Qualifiers: Dyspnea type: dyspnea on exertion Qualified Code(s): R06.09 - Other forms of dyspnea (2) Hyperkalemia Status: Acute Assessment and plan: * Patient's potassium 6.5 upon arrival to the emergency department, no EKG changes * Patient given IV insulin, glucose, albuterol, and Kayexalate * Repeat BMP shows potassium improved to 5.5 * Dr. Maravilla contacted and will undergo dialysis tonight * Repeat BMP following dialysis (3) End stage renal disease Status: Chronic Assessment and plan: * Not anuric * Patient has history of noncompliance, missed two dialysis appointments this week * Patient to undergo emergent dialysis tonight given elevated BNP, evidence of fluid overload status on exam, and hyperkalemia * Nephrology following (4) Missed dialysis Status: Acute Assessment and plan: * Per patient, social constraints held the patient to make it to his appointments (5) Elevated troponin Status: Acute Assessment and plan: * Likely demand ischemia * troponin 0.04, repeat 0.03, appears to be patients baseline * No EKG changes * Will trend - Time Spent With Patient Total time spent is greater than 50% in coordination of care (as documented) at patient's floor/unit and/or counseling patient: <Sirisha King - Last Filed: 04/15/19 20:08> Date of Encounter: 04/06/19 Internal Medicine - H&P: HPI Chief complaint: shortness of breath. History of present illness: Mr. Snyder is a 33 year old male All Systems PM: A 10-system review of systems was performed and is negative for pertinent findings except as documented above in the HPI. - Constitutional Vitals: Temp Pulse Resp BP Pulse Ox 97.6 F 88 12 178/109 99 04/07/19 01:17 04/07/19 05:00 04/07/19 04:00 04/07/19 04:00 04/07/19 04:00 Internal Med - H&P Results - Labs CBC & Chem 7: 04/15/19 05:14 04/15/19 05:14 Labs: Short CBC 04/06/19 04/07/19 Range/Units 20:35 01:39 WBC 9.2 7.8 (4.3-11.1) K/mcL Hgb 11.7 L 10.9 L (12.9-16.9) g/dL Hct 35.7 L 34.0 L (37.5-50.1) % Plt Count 158 133 L (140-400) K/mcL Neutrophils # 6.7 6.3 (1.6-8.9) K/mcL BMP 04/06/19 04/06/19 04/07/19 20:35 23:06 01:39 Sodium 135 L 136 137 Potassium 6.5 H* 5.5 H 5.0 Chloride 98 99 98 Carbon Dioxide 20 L 20 L 22 L BUN 95 H 97 H 85 H Creatinine 13.40 H 13.82 H 12.42 H Glucose 99 63 L 140 H Calcium 9.4 9.1 8.9 Cardiac Enzymes 04/06/19 04/07/19 Range/Units 20:35 01:39 Troponin I 0.04 H* 0.03 (< 0.04) ng/mL Liver Function 04/06/19 04/06/19 Range/Units 20:35 23:06 Total Bilirubin 0.4 0.4 (0.3-1.0) mg/dL Direct Bilirubin 0.1 (0.0-0.2) mg/dL AST 9 L 8 L (13-39) Units/L ALT 5 L 6 L (7-52) Units/L Alkaline Phosphatase 128 H 118 H (34-104) Units/L Albumin 3.5 3.3 L (3.5-5.7) g/dL - Impressions ITS Impressions Chest X-Ray 04/06/19 20:21 IMPRESSION: Pulmonary vascular congestion. Correlate with clinical evidence of developing pulmonary edema. No acute abnormality detected otherwise. D/ / Mihai Morales MD / Mihai Morales MD Interpreting Provider: Mihai Morales MD - Time Spent With Patient Total time spent is greater than 50% in coordination of care (as documented) at patient's floor/unit and/or counseling patient: - Attending Attestation on 04/06/19 I performed a history and physical examination of the patient and discussed his management with the resident. I reviewed the residents note and agree with the documented findings and plan of care.
[2019-04-06] MEDS ORDERED: *HR* Heparin 10,000 UNIT/10 ML VIAL IV PRN ×2 (23:39)
[2019-04-06] MEDS ORDERED: 0.9 % Sodium Chloride 250 ML IVC PRN (23:39)
[2019-04-06 23:40] LABS: Albumin 3.3 g/dL (3.5-5.7); Albumin/Globulin Ratio 1.2 (1.1-2.2); Bilirubin,Total 0.4 mg/dL (0.3-1.0); Calcium 9.1 mg/dL (8.6-10.3); Globulin 2.7 g/dL (2.4-3.5); Potassium 5.5 mEq/L (3.5-5.1)
[2019-04-06] MEDS ORDERED: 0.9 % Sodium Chloride 1,000 ML PRIME SCH (23:45)
[2019-04-07] MEDS ORDERED: Acetaminophen 325 MG TABLET PO PRN (00:05)
[2019-04-07 02:06] LABS: Basophils # 0.1 K/mcL (0.0-0.2); Basophils % 0.6 %; Eosinophils # 0.2 K/mcL (0.0-0.6); Eosinophils % 2.3 %; Hemoglobin 10.9 g/dL (12.9-16.9); Immature Granulocytes % 0.4 % (0-4); Lymphocytes # 0.7 K/mcL (0.6-4.6); Lymphocytes % 9.2 %; Mean Corpuscular HGB Conc 32.1 g/dL (31.6-35.5); Mean Corpuscular Hemoglobin 29.6 pg (28.0-33.3); Mean Corpuscular Volume 92.4 fL (83.0-100.0); Mean Platelet Volume 10.6 fL (9.4-12.4); Monocytes # 0.6 K/mcL (0.0-1.3); Monocytes % 7.2 %; Neutrophils # 6.3 K/mcL (1.6-8.9); Platelet Count 133 K/mcL (140-400); Red Blood Count 3.68 M/mcL (4.19-5.50); Red Cell Distribution Width 14.4 % (11.5-14.5); Segmented Neutrophils % 80.3 %; White Blood Count 7.8 K/mcL (4.3-11.1)
[2019-04-07 02:18] LABS: Calcium 8.9 mg/dL (8.6-10.3)
[2019-04-07] MEDS ORDERED: 0.9 % Sodium Chloride 250 ML IVC PRN ×2 (07:43→09:54)
[2019-04-07] MEDS ORDERED: *HR* Heparin 10,000 UNIT/10 ML VIAL IV PRN ×4 (08:21→09:54)
[2019-04-07] MEDS ORDERED: Aspirin Enteric Coated 81 MG Tablet PO SCH (09:00)
[2019-04-07] MEDS ORDERED: Metoprolol XL (24 HR) Succ 50 MG TAB.ER.24H PO SCH (09:00)
--- NOTE | 2019-04-07 09:42 | Nephrology Consult Note ---
Date of Encounter: 04/07/19 Time of Encounter: 09:40 Assessment and Plan (1) ESRD (end stage renal disease) on dialysis Current Visit: Yes Status: Acute Current regimen is MWF at [facility]. Has missed 7 days total of HD, 3 missed sessions. HD in progress for today, plan for UF or HD tomorrow and most likely again on Friday. Renal diet Renal vitamins Strict I/O Avoid nephrotoxins and renal dose all medications. This patient is grossly noncompliant with fluid gains and missing HD sessions. Educated on the importance of both to patient. (2) Dyspnea Current Visit: Yes Status: Acute Appears improving with HD. Qualifiers: Dyspnea type: dyspnea on exertion Qualified Code(s): R06.09 - Other forms of dyspnea (3) Hyperkalemia Current Visit: Yes Status: Acute Initial potassium was 65, resolved with HD. Renal diet advised. (4) Missed dialysis Current Visit: Yes Status: Acute Noncompliant patient. Educated on the importance of. (5) Noncompliance Current Visit: Yes Status: Acute See above. History of Present Illness - Reason for Consult Consult date: 04/07/19 end stage renal disease Requesting physician: Sirisha King - Chief Complaint difficulty in breathing - History of Present Illness Mr. Snyder is a 33 year old male who presented to ED with shortness of breath. SOB started Friday evening, and he knew he needed HD so he came to ED. PMH: cardiomyopathy, cirrhosis, CHF, hyperlipidemia, hypertension, and ESRD. ESRD axel castro is MWF at [facility]. He is grossly non compliant, it has been 7 days since his last HD session. He reports he had to babysit his nephew and did not have the money for the bus. Denies chest pain or shortness of breath today. Denies nausea, vomiting, diarrhea. He has chronic ascites and has outpatient orders for PRN paracentesis. His last was the 17 of March per patient. He is currently homeless. He was staying with his brother in law and his 2 kids but all four of them got evicted. He hopes to be able to stay in [place] with the brother in law's parents. He will let me know if he needs to switch HD units. Denies etoh or illicit drug use. Uses tobacco daily, decline nicotine patch. No FH of CKD or HD. Past Med Surg Social Fam HX - Past Medical History Medical history: cardiomyopathy, cirrhosis, CHF, dialysis, hyperlipidemia, hypertension, liver disease, renal disease, thyroid disease, venous stasis, other Additional medical history: ESRD w/ T, TH, SA HD; anemia, hyperparathyroid, inguinal and umbilical hernia, suprapubic cath, hyperkalemia, ascites, pleural effusions, neurogenic bladder, pneumonia, peritonitis, cellulitis, UTIs. Psychiatric history: anxiety, depression - Past Surgical History Surgical History: orthopedic, other, vascular surgery Additional surgical history: suprapubic cath placement. fistula placement left AC. Left arm skin graft - Social History Smoking Status: Current every day smoker Smokeless Tobacco Status: No Alcohol use: none Drug use: none - Family History Mother Adopted: No Living Status: Still Living Hx Family Cardiac Disorders: Yes (Stroke) Hx Family Respiratory Disorders: No Hx Family Cancer: No Hx Family GI Disorders: No Hx Family Endocrine Disorder: Yes (DM) Hx Family Neuromuscular Disorders: No Hx Family Neurologic Disorders: No Hx Family HEENT Disorders: No Hx Family Autoimmune Disorders: No Father Living Status: Hx Family Cardiac Disorders: Yes (CAD) Hx Family Respiratory Disorders: No Hx Family Cancer: No Hx Family GI Disorders: No Hx Family Endocrine Disorder: Yes (Diabetes) Hx Family Neuromuscular Disorders: No Hx Family Neurologic Disorders: No Hx Family HEENT Disorders: No Hx Family Autoimmune Disorders: No Medications and Allergies Sevelamer [Renvela] 2,400 mg PO TIDWM 04/25/17 [History] Aspirin [Lo-Dose Aspirin EC] 81 mg PO DAILY 08/03/18 [History] Metoprolol Succinate [Toprol Xl] 100 mg PO DAILY 01/07/19 [History] Ergocalciferol (VITAMIN D2) [Vitamin D2] 50,000 unit PO MO 02/05/19 [History] Lisinopril [Zestril] 10 mg PO DAILY #30 tablet 03/17/19 [Rx] Allergy/AdvReac Type Severity Reaction Status Date / Time No Known Allergies Allergy Verified 03/15/19 09:27 Review of Systems All Systems review (narrative): The remainder of the systems are negative. Constitutional: fatigue, no chills, no fever(s) Cardiovascular: no chest pain, no dyspnea Respiratory: no cough, no dyspnea Gastrointestinal: no change in bowel habits, no diarrhea, no nausea, no vomiting Exam - Vital Signs Vital signs: Initial Vital Signs Temp Pulse Resp BP Pulse Ox 98.0 F 88 17 167/128 100 04/06/19 20:17 04/06/19 20:17 04/06/19 20:17 04/06/19 20:17 04/06/19 20:17 Vital Signs - Last 8 Hours Temp Pulse Resp BP Pulse Ox 04/07/19 09:00 97.7 F 18 161/100 04/07/19 08:00 73 13 128/75 98 04/07/19 07:50 97.6 F 04/07/19 07:00 71 11 97 04/07/19 06:00 90 04/07/19 05:00 88 04/07/19 04:00 87 12 178/109 99 04/07/19 03:00 98 04/07/19 02:00 91 20 170/93 99 Intake and Output 04/06/19 04/07/19 04/07/19 23:59 07:59 15:59 Intake Total 0 / 600 600 / 1200 600 / 1200 Output Total 2650 / 2650 Balance 0 / 600 -2050 / -1450 600 / -1450 Intake: Oral 0 / 0 0 / 0 Intake, Rinseback and Flushes 600 / 1200 600 / 1200 Output: Total Dialysis (HD) Output 2600 / 2600 Catheter 50 / 50 Other: Stool Size Large Stool Consistency liquid Stool Color Brown # Bowel Movements 1 Weight 168.9 kg Hemodialysis Net Fluid Removed 2000 0 (mL) - General Appearance General appearance: well-developed, well-nourished, obese EENT: ATNC, hearing intact, vision intact Neck: supple Respiratory: clear, wheezing Cardiology: edema (+2 pitting edema noted to bilat lower extremities.), normal S1, normal S2 - Dialysis Access Dialysis Vascular Access: Venous Catheter (DRSG C/D/I) thrill: Yes bruit: Yes Additional Comments: AV GRAFT (+) (+). DRSG C/D/I Gastrointestinal: normoactive bowel sounds, no tenderness, no guarding Integumentary: no rash, warm and dry Neurologic: alert and oriented x3 Musculoskeletal: no deformities, no erythema Psychiatric: mood/affect appropriate, cooperative Results - Lab Results 04/07/19 01:39 04/07/19 01:39 Most recent lab results 04/06/19 04/06/19 04/07/19 20:35 23:06 01:39 Calcium 9.1 8.9 Magnesium 2.7 H Consult Discharge Plan - Plan Referrals: NONE,PCP [Primary Care Provider] -
[2019-04-07] MEDS ORDERED: 0.9 % Sodium Chloride 1,000 ML PRIME SCH (09:54)
[2019-04-07] MEDS ORDERED: Naloxone 0.4 MG/ML INJ IVP PRN (09:54)
--- NOTE | 2019-04-07 11:05 | Internal Med Progress Note ---
<Rebecca Chirinos - Last Filed: 04/07/19 11:56> Hospitalist Progress Note - Encounter Date of Encounter: 04/07/19 - Exam Vitals: Temp Pulse Resp BP Pulse Ox 97.7 F 73 18 148/90 98 04/07/19 09:00 04/07/19 08:00 04/07/19 09:00 04/07/19 11:45 04/07/19 08:00 - Time Spent with Patient Total time spent is greater than 50% in coordination of care (as documented) at patient's floor/unit and/or counseling patient: Internal Medicine: Result - Labs CBC & Chem 7: 04/07/19 01:39 04/07/19 01:39 Labs: Short CBC 04/06/19 04/07/19 Range/Units 20:35 01:39 WBC 9.2 7.8 (4.3-11.1) K/mcL Hgb 11.7 L 10.9 L (12.9-16.9) g/dL Hct 35.7 L 34.0 L (37.5-50.1) % Plt Count 158 133 L (140-400) K/mcL Neutrophils # 6.7 6.3 (1.6-8.9) K/mcL BMP 04/06/19 04/06/19 04/07/19 20:35 23:06 01:39 Sodium 135 L 136 137 Potassium 6.5 H* 5.5 H 5.0 Chloride 98 99 98 Carbon Dioxide 20 L 20 L 22 L BUN 95 H 97 H 85 H Creatinine 13.40 H 13.82 H 12.42 H Glucose 99 63 L 140 H Calcium 9.4 9.1 8.9 Cardiac Enzymes 04/06/19 04/07/19 04/07/19 Range/Units 20:35 01:39 06:20 Troponin I 0.04 H* 0.03 0.03 (< 0.04) ng/mL Liver Function 04/06/19 04/06/19 Range/Units 20:35 23:06 Total Bilirubin 0.4 0.4 (0.3-1.0) mg/dL Direct Bilirubin 0.1 (0.0-0.2) mg/dL AST 9 L 8 L (13-39) Units/L ALT 5 L 6 L (7-52) Units/L Alkaline Phosphatase 128 H 118 H (34-104) Units/L Albumin 3.5 3.3 L (3.5-5.7) g/dL - ABG Interpretation ABG results: PT/INR, D-dimer PT 14.4 Seconds (9.4-12.1) H 04/06/19 20:35 - Impressions Impressions Chest X-Ray 04/06/19 20:21 IMPRESSION: Pulmonary vascular congestion. Correlate with clinical evidence of developing pulmonary edema. No acute abnormality detected otherwise. D/ / Mihai Morales MD / Mihai Morales MD Interpreting Provider: Mihai Morales MD Consult Discharge Plan - Plan Referrals: NONE,PCP [Primary Care Provider] - - Attending Attestation I examined this patient and my medical decision-making was reviewed with the Resident Physician Dr Adames. I agree with the documented findings, disposition and treatment plan as described except to the extent set forth below. Mr snyder is admitted with hyperkalemia and ESRD Awake in HD. No sob since HD last night. le edema improved. Denies cp, pressure or palpitations. Apologetic that he could not find early childhood and had to miss HD sessions gen- alert, awake,appears stated age cv- reg rate and rhythm, normal s1,s2, no le edema lungs- ctabl, no wheezing, rhonchi or crackles, normal resp effort on room air abd- soft, non tender, non distended neuro- AAOx3 volume Overload 2/2 ESRD missed HD sessions improved with HD session last night -HD as per nephro Hyperkalemia resolved with HD- cont to monitor, tele further diagnoses and plan as noted by resident dispo will be to home likely in next 24 hrs pending further inpt HD needs <Katelyn Adames I - Last Filed: 04/07/19 18:45> Hospitalist Progress Note - Encounter Date of Encounter: 04/07/19 Time of Encounter: 01:45 - Subjective Interval History: Mr. Snyder is a 33 year old male with history of cirrhosis, CHF, end-stage renal disease, hyperlipidemia, hypertension, hypothyroidism, venous stasis who presents emergency department with complaints of shortness of breath. today patient was seen after he had his dialysis . he was feeling better , no dyspnea , able to eat and drink . able to pass urine , no fever or chills . - Exam Vitals: Temp Pulse Resp BP Pulse Ox 97.7 F 73 18 149/74 98 04/07/19 09:00 04/07/19 08:00 04/07/19 09:00 04/07/19 10:30 04/07/19 08:00 Exam: General: no acute distress , A&AX3 HEENT: Atraumatic, Normocephaly, sclera unicteric Neck: supple , Full ROM , trachea midline Cardiac: RRR , S1+. S2+ Lungs: Normal Breath Sounds Bilaterally, No Wheeze, Rales, Rhonchi Abdomen: Soft, Non-Tender ,no organomegaly , +bowel sounds Extremities: No Clubbing, No Cyanosis,or edema , Normal Pulses Skin : intact , Normal color Psychiatric : normal affect, normal mood Nuero : alert, normal gait, oriented X3 - Assessment and Plan (1) Volume overload Current Visit: Yes Status: Acute Assessment and Plan: patient presented with Shortness of breath after missing 2 dialysis sessions at ER BUN elevated to 95, creatinine 13.4, potassium elevated at 6.5. BNP elevated at 3034 he had one dialysis yesterday and another one today . He appeared to be tolerating his treatment well. he is feeling much better his creatinine today is 12.4 , BUN 85 nephro recommend to continue dialysis and strict I's and O's, daily weights, renal diet, avoidance of nephrotoxic agents, renal dosing. (2) Hyperkalemia Current Visit: No Status: Resolved Assessment and Plan: Initial potassium was 65, resolved with HD now it is 5 EKG was negative for any new ischemic changes continue monitoring plan as above for volume overload . (3) Missed dialysis Current Visit: Yes Status: Acute Assessment and Plan: patient has known history bof missing dialysis sessions . patient was understanding his high rates of mortality when he skips dialysis. He voiced understanding that his life is at risk (4) ESRD (end stage renal disease) on dialysis Current Visit: Yes Status: Acute Assessment and Plan: this is achronic condition patient is on intermediate dialysis plan as above (5) Elevated troponin Current Visit: Yes Status: Acute - Time Spent with Patient Total time spent is greater than 50% in coordination of care (as documented) at patient's floor/unit and/or counseling patient: Internal Medicine: Result - Labs CBC & Chem 7: 04/07/19 01:39 04/07/19 01:39 Labs: Short CBC 04/06/19 04/07/19 Range/Units 20:35 01:39 WBC 9.2 7.8 (4.3-11.1) K/mcL Hgb 11.7 L 10.9 L (12.9-16.9) g/dL Hct 35.7 L 34.0 L (37.5-50.1) % Plt Count 158 133 L (140-400) K/mcL Neutrophils # 6.7 6.3 (1.6-8.9) K/mcL BMP 04/06/19 04/06/19 04/07/19 20:35 23:06 01:39 Sodium 135 L 136 137 Potassium 6.5 H* 5.5 H 5.0 Chloride 98 99 98 Carbon Dioxide 20 L 20 L 22 L BUN 95 H 97 H 85 H Creatinine 13.40 H 13.82 H 12.42 H Glucose 99 63 L 140 H Calcium 9.4 9.1 8.9 Cardiac Enzymes 04/06/19 04/07/19 04/07/19 Range/Units 20:35 01:39 06:20 Troponin I 0.04 H* 0.03 0.03 (< 0.04) ng/mL Liver Function 04/06/19 04/06/19 Range/Units 20:35 23:06 Total Bilirubin 0.4 0.4 (0.3-1.0) mg/dL Direct Bilirubin 0.1 (0.0-0.2) mg/dL AST 9 L 8 L (13-39) Units/L ALT 5 L 6 L (7-52) Units/L Alkaline Phosphatase 128 H 118 H (34-104) Units/L Albumin 3.5 3.3 L (3.5-5.7) g/dL - ABG Interpretation ABG results: PT/INR, D-dimer PT 14.4 Seconds (9.4-12.1) H 04/06/19 20:35 - Impressions Impressions Chest X-Ray 04/06/19 20:21
--- NOTE | 2019-04-07 15:39 | Electrocardiograph Report ---
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
[2019-04-08 03:43] LABS: Basophils # 0.1 K/mcL (0.0-0.2); Eosinophils # 0.4 K/mcL (0.0-0.6); Eosinophils % 6.6 %; Hemoglobin 11.4 g/dL (12.9-16.9); Immature Granulocytes % 0.2 % (0-4); Lymphocytes # 1.1 K/mcL (0.6-4.6); Lymphocytes % 18.3 %; Mean Corpuscular HGB Conc 31.7 g/dL (31.6-35.5); Mean Corpuscular Hemoglobin 29.3 pg (28.0-33.3); Mean Corpuscular Volume 92.5 fL (83.0-100.0); Mean Platelet Volume 10.4 fL (9.4-12.4); Monocytes # 0.6 K/mcL (0.0-1.3); Monocytes % 9.7 %; Neutrophils # 3.9 K/mcL (1.6-8.9); Platelet Count 167 K/mcL (140-400); Red Blood Count 3.89 M/mcL (4.19-5.50); Red Cell Distribution Width 14.5 % (11.5-14.5); Segmented Neutrophils % 64.2 %; White Blood Count 6.1 K/mcL (4.3-11.1)
[2019-04-08 03:55] LABS: Potassium 5.3 mEq/L (3.5-5.1)
[2019-04-08] MEDS ORDERED: 0.9 % Sodium Chloride 250 ML IVC PRN (07:25)
[2019-04-08] MEDS: Aspirin Enteric Coated 81 MG Tablet PO SCH (07:49)
--- NOTE | 2019-04-08 07:50 | Internal Med Progress Note ---
<Rebecca Chirinos - Last Filed: 04/08/19 12:17> Hospitalist Progress Note - Encounter Date of Encounter: 04/08/19 - Exam Vitals: Temp Pulse Resp BP Pulse Ox 97.9 F 75 18 154/102 98 04/08/19 06:43 04/08/19 06:43 04/08/19 06:43 04/08/19 06:43 04/08/19 06:43 - Time Spent with Patient Total time spent is greater than 50% in coordination of care (as documented) at patient's floor/unit and/or counseling patient: Internal Medicine: Result - Labs CBC & Chem 7: 04/08/19 02:55 04/08/19 02:55 Labs: Short CBC 04/08/19 Range/Units 02:55 WBC 6.1 (4.3-11.1) K/mcL Hgb 11.4 L (12.9-16.9) g/dL Hct 36.0 L (37.5-50.1) % Plt Count 167 (140-400) K/mcL Neutrophils # 3.9 (1.6-8.9) K/mcL BMP 04/08/19 02:55 Sodium 136 Potassium 5.3 H Chloride 98 Carbon Dioxide 25 BUN 50 H Creatinine 8.99 H Glucose 88 Calcium 9.0 - ABG Interpretation ABG results: PT/INR, D-dimer PT 14.4 Seconds (9.4-12.1) H 04/06/19 20:35 Consult Discharge Plan - Plan Referrals: NONE,PCP [Primary Care Provider] - - Attending Attestation I examined this patient and my medical decision-making was reviewed with the Resident Physician Dr Adames. I agree with the documented findings, disposition and treatment plan as described except to the extent set forth below. Mr gudino is admitted with hyperkalemia and ESRD Awake in HD. no sob. no cp, palpitations. le edema cont to improve gen- alert, awake,appears stated age cv- reg rate and rhythm, normal s1,s2, no pitting le edema lungs- ctabl, diminished bl bases normal resp effort on room air neuro- AAOx3 volume Overload 2/2 ESRD missed HD sessions-HD/UF as per nephro Hyperkalemia, mild today- in HD, cont to monitor, on tele dispo will be to home likely in next 24 hrs pending further inpt HD needs <Katelyn Adames I - Last Filed: 04/08/19 15:44> Hospitalist Progress Note - Encounter Date of Encounter: 04/08/19 Time of Encounter: 09:00 - Subjective Interval History: today patient was seen in dialysis unit before he starts his dialysis session , he was little tired as he states but denies SOB , chest pain nausea vomitinf diarrhea or constipation . no fever , no generalized swelling . - Exam Vitals: Temp Pulse Resp BP Pulse Ox 97.9 F 75 18 154/102 98 04/08/19 06:43 04/08/19 06:43 04/08/19 06:43 04/08/19 06:43 04/08/19 06:43 Exam: General: no acute distress , A&AX3 HEENT: Atraumatic, Normocephaly, sclera unicteric Neck: supple , Full ROM , trachea midline Cardiac: RRR , S1+. S2+ Lungs: Normal Breath Sounds Bilaterally, No Wheeze, Rales, Rhonchi Abdomen: Soft, Non-Tender ,no organomegaly , +bowel sounds Extremities: +1 BLLE No Clubbing, No Cyanosis,or edema , Normal Pulses Skin : intact , Normal color Psychiatric : normal affect, normal mood Nuero : alert, normal gait, oriented X3 - Assessment and Plan (1) ESRD (end stage renal disease) on dialysis Current Visit: Yes Status: Acute Assessment and Plan: patient presented with Shortness of breath after missing 2 dialysis sessions at ER BUN elevated to 95, creatinine 13.4, potassium elevated at 6.5. BNP elevated at 3034 he is feeling much better his creatinine today is 8.9, BUN 50 , k 5.3 and total I/O -4400 Today was his 3rd dialysis session nephro recommend to continue dialysis plan : continue dialysis strict I's and O's daily weights renal diet avoidance of nephrotoxic agents continue vitals monitoring repeat BMP in morning . (2) Volume overload Current Visit: Yes Status: Acute Assessment and Plan: patient presented with Shortness of breath after missing 2 dialysis sessions mostly this is the reason for volume overload plan as above for ESRD (3) Hyperkalemia Current Visit: No Status: Resolved Assessment and Plan: nitial potassium was 6.5, resolved with HD now it is 5.3 EKG was negative for any new ischemic changes continue monitoring (4) Missed dialysis Current Visit: Yes Status: Acute Assessment and Plan: patient has known history bof missing dialysis sessions . patient was understanding his high rates of mortality when he skips dialysis. He voiced understanding that his life is at risk - Time Spent with Patient Total time spent is greater than 50% in coordination of care (as documented) at patient's floor/unit and/or counseling patient: Internal Medicine: Result - Labs CBC & Chem 7: 04/08/19 02:55 04/08/19 02:55 Labs: Short CBC 04/08/19 Range/Units 02:55 WBC 6.1 (4.3-11.1) K/mcL Hgb 11.4 L (12.9-16.9) g/dL Hct 36.0 L (37.5-50.1) % Plt Count 167 (140-400) K/mcL Neutrophils # 3.9 (1.6-8.9) K/mcL BMP 04/08/19 02:55 Sodium 136 Potassium 5.3 H Chloride 98 Carbon Dioxide 25 BUN 50 H Creatinine 8.99 H Glucose 88 Calcium 9.0 - ABG Interpretation ABG results: PT/INR, D-dimer PT 14.4 Seconds (9.4-12.1) H 04/06/19 20:35
--- NOTE | 2019-04-08 12:18 | Nephrology Progress Note ---
Date of Encounter: 04/08/19 Time of Encounter: 12:16 - Assessment and Plan (1) ESRD (end stage renal disease) on dialysis Current Visit: Yes Status: Acute Current regimen is MWF at [facility]. Has missed 7 days total of HD, 3 missed sessions. HD in progress for today, plan for HD tomorrow, which will be 3 consecutive days. Renal diet Renal vitamins Strict I/O Avoid nephrotoxins and renal dose all medications. This patient is grossly noncompliant with fluid gains and missing HD sessions. Educated on the importance of both to patient. Patient is currently homeless, he is working on finding somewhere to stay p ossibly in [place], [place]. (2) Dyspnea Current Visit: Yes Status: Acute Appears improving with HD. Qualifiers: Dyspnea type: dyspnea on exertion Qualified Code(s): R06.09 - Other forms of dyspnea (3) Hyperkalemia Current Visit: Yes Status: Acute K 5.3, resolved with HD. Renal diet advised. (4) Missed dialysis Current Visit: Yes Status: Acute Noncompliant patient. Educated on the importance of. (5) Noncompliance Current Visit: Yes Status: Acute See above. Subjective Principal diagnosis: difficulty in breathing Interval history: Pt seen and examined during HD, tolerating well. Denies any chest pain or shortness of breath. Denies nausea, vomiting, diarrhea. Objective - Vital Signs Vital signs: Vital Signs Temp Pulse Resp BP Pulse Ox 04/08/19 06:43 97.9 F 75 18 154/102 98 04/08/19 04:31 98.5 F 76 97 153/95 04/07/19 23:21 97.8 F 68 20 153/93 98 04/07/19 20:13 97.9 F 71 20 155/91 96 04/07/19 16:22 97.7 F 73 16 147/88 96 04/07/19 13:43 97.6 F 18 154/91 04/07/19 13:30 132/81 04/07/19 13:15 154/87 04/07/19 13:00 154/87 04/07/19 12:45 135/77 04/07/19 12:30 133/69 Intake and Output 04/07/19 04/08/19 04/08/19 23:59 07:59 15:59 Intake Total 260 / 1460 360 / 360 Balance 260 / -6790 360 / 360 Intake: Oral 260 / 260 360 / 360 Other: Meal Breakfast Percent of Meal Consumed 100% - General Appearance General appearance: Present: well-developed, well-nourished, obese EENT: Present: ATNC, hearing intact, vision intact Neck: Present: supple Respiratory: Present: clear Cardiology: Present: edema (+2 pitting edema noted to bilat lower extremities.), normal S1, normal S2 Dialysis Vascular Access: Arteriovenous Fistula thrill: Yes bruit: Yes Gastrointestinal: Present: normoactive bowel sounds, no tenderness, no guarding Integumentary: Present: no rash, warm and dry Neurologic: Present: alert and oriented x3 Musculoskeletal: Present: no deformities, no erythema Psychiatric: Present: mood/affect appropriate, cooperative - Lab 04/08/19 02:55 04/08/19 02:55 Most recent lab results 04/08/19 02:55 Calcium 9.0 Consult Discharge Plan - Plan Referrals: NONE,PCP [Primary Care Provider] -
[2019-04-08] MEDS: Metoprolol XL (24 HR) Succ 50 MG TAB.ER.24H PO SCH (14:42)
[2019-04-08] MEDS: Acetaminophen 325 MG TABLET PO PRN (20:07)
[2019-04-08] MEDS ORDERED: traMADol 50 MG TABLET PO ONE (20:50)
[2019-04-09] MEDS ORDERED: 0.9 % Sodium Chloride 250 ML IVC PRN (06:40)
[2019-04-09 07:20] LABS: Basophils # 0.1 K/mcL (0.0-0.2); Basophils % 1.6 %; Eosinophils # 0.5 K/mcL (0.0-0.6); Eosinophils % 7.8 %; Hemoglobin 11.1 g/dL (12.9-16.9); Immature Granulocytes % 0.3 % (0-4); Lymphocytes # 1.2 K/mcL (0.6-4.6); Lymphocytes % 19.7 %; Mean Corpuscular HGB Conc 30.8 g/dL (31.6-35.5); Mean Corpuscular Hemoglobin 28.8 pg (28.0-33.3); Mean Corpuscular Volume 93.3 fL (83.0-100.0); Mean Platelet Volume 10.4 fL (9.4-12.4); Monocytes # 0.7 K/mcL (0.0-1.3); Monocytes % 10.8 %; Neutrophils # 3.7 K/mcL (1.6-8.9); Platelet Count 161 K/mcL (140-400); Red Blood Count 3.86 M/mcL (4.19-5.50); Red Cell Distribution Width 14.4 % (11.5-14.5); Segmented Neutrophils % 59.8 %; White Blood Count 6.2 K/mcL (4.3-11.1)
[2019-04-09 07:53] LABS: Calcium 9.1 mg/dL (8.6-10.3); Potassium 5.4 mEq/L (3.5-5.1)
[2019-04-09] MEDS: Aspirin Enteric Coated 81 MG Tablet PO SCH (07:54)
[2019-04-09] MEDS: Metoprolol XL (24 HR) Succ 50 MG TAB.ER.24H PO SCH ×2 (08:06→17:11)
--- NOTE | 2019-04-09 08:38 | Internal Med Progress Note ---
Hospitalist Progress Note - Encounter Date of Encounter: 04/09/19 - Exam Vitals: Temp Pulse Resp BP Pulse Ox 97.9 F 69 16 163/97 93 04/09/19 07:38 04/09/19 07:38 04/09/19 07:38 04/09/19 07:38 04/09/19 07:38 - Assessment and Plan (1) ESRD (end stage renal disease) on dialysis Current Visit: Yes Status: Acute (2) Volume overload Current Visit: Yes Status: Acute (3) Hyperkalemia Current Visit: No Status: Resolved (4) Missed dialysis Current Visit: Yes Status: Acute - Time Spent with Patient Total time spent is greater than 50% in coordination of care (as documented) at patient's floor/unit and/or counseling patient: Internal Medicine: Result - Labs CBC & Chem 7: 04/09/19 05:42 04/09/19 05:42 Labs: Short CBC 04/09/19 Range/Units 05:42 WBC 6.2 (4.3-11.1) K/mcL Hgb 11.1 L (12.9-16.9) g/dL Hct 36.0 L (37.5-50.1) % Plt Count 161 (140-400) K/mcL Neutrophils # 3.7 (1.6-8.9) K/mcL BMP 04/09/19 05:42 Sodium 134 L Potassium 5.4 H Chloride 98 Carbon Dioxide 28 BUN 37 H Creatinine 7.42 H Glucose 90 Calcium 9.1 - ABG Interpretation ABG results: PT/INR, D-dimer PT 14.4 Seconds (9.4-12.1) H 04/06/19 20:35 Consult Discharge Plan - Plan Referrals: NONE,PCP [Primary Care Provider] -
--- NOTE | 2019-04-09 10:33 | Discharge Summary ---
- NOTES TO OUTPATIENT PROVIDER Notes to Outpatient Provider: Patient is known case of ESRD on dialysis but Non complient with dialysis at all . patient is discharged home and asked to followup and be complient with his dialysis sessions . Orders not resulted at time of discharge: Pending orders 04/10/19 04:00 BMP [Basic Metabolic Panel] 0400 CBC [Complete Blood Count] [HEME] AM 0400 04/11/19 04:00 BMP [Basic Metabolic Panel] 0400 CBC [Complete Blood Count] [HEME] AM 0400 Date of Encounter: 04/09/19 Time of Encounter: 08:30 - Discharge Diagnosis (1) Missed dialysis Priority: Primary Status: Acute (2) ESRD (end stage renal disease) on dialysis Priority: Secondary Status: Acute (3) Volume overload Priority: Secondary Status: Acute Hospital course: Mr. Snyder is a 33 year old male with history of end-stage renal disease who presents emergency department with complaints of shortness of breath ,swelling of bilateral lower extremities after missing 3 dialysis sessions last week .In the emergency department the patient was found to be hypoxic requiring oxygen, anemia which appears his baseline, BUN elevated to 95, creatinine 13.4, potassium elevated at 6.5. BNP elevated at 3034, troponin 0.04. Chest Xr shows vascular congestion. The patient did not have changes on EKG. He was given 50 mg albuterol, 10 units insulin, dextrose as well as Kayexalate for hyperkalemia. Nephrology was consultative for emergent dialysis given the patient's hyperkalemia and fluid overloaded status. patient had 4 dialysis sessions since time of admission , his labs improved potassium today is 5.4, creatinine is 7.4 . patient is doing well with dialysis his vitals are stable except for high blood pressure . Patient is instructed to followup with his coffee attendant and be complient with out patients dialysis sessions 3 times a week and be complience with the medication. patient is stable and he is understanding the treatment and plan and he understand missing dialysis sessions could risk his life . also we contacted the social work administrator to help with his discharge since he is homeless . Discharge discussed with: patient - Time Spent with Patient Total time spent providing and/or coordinating discharge services: - Discharge Medications Prescriptions: Continued Sevelamer [Renvela] 2,400 mg PO TIDWM Aspirin [Lo-Dose Aspirin EC] 81 mg PO DAILY Metoprolol Succinate [Toprol Xl] 100 mg PO DAILY Ergocalciferol (VITAMIN D2) [Vitamin D2] 50,000 unit PO QWEEK Lisinopril [Zestril] 10 mg PO DAILY Home Medications: Sevelamer [Renvela] 2,400 mg PO TIDWM 04/25/17 [History] Aspirin [Lo-Dose Aspirin EC] 81 mg PO DAILY 08/03/18 [History] Metoprolol Succinate [Toprol Xl] 100 mg PO DAILY 01/07/19 [History] Ergocalciferol (VITAMIN D2) [Vitamin D2] 50,000 unit PO QWEEK 02/05/19 [History] Lisinopril [Zestril] 10 mg PO DAILY 04/08/19 [History] Allergies/Adverse Reactions: Allergy/AdvReac Type Severity Reaction Status Date / Time No Known Allergies Allergy Verified 03/15/19 09:27 Date of admission: 04/07/19 11:11 Primary care physician: PCP NONE Consults: 04/06/19 21:32 Consult to Nephrology [CONS] Stat Consulting Provider: [facility] Amelia/STEPH/JEANETTE/NICOLASA Reason for Consult: Known patient, hyperkalemia, missed dialysis Call Completed: Yes 04/06/19 23:39 Consult to Dialysis [CONS] Stat 04/07/19 07:45 Consult to Dialysis [CONS] ONCE 04/08/19 07:30 Consult to Dialysis [CONS] ONCE 04/08/19 09:18 Consult to Nurse Navigator [CONS] Routine Comment: hd 04/09/19 06:45 Consult to Dialysis [CONS] ONCE Discharging clinician: Rebecca Chirinos Anticipated date of discharge: 04/09/19 - Constitutional Vitals: Temp Pulse Resp BP Pulse Ox 98 F 69 16 176/100 93 04/09/19 08:50 04/09/19 07:38 04/09/19 08:50 04/09/19 10:05 04/09/19 07:38 General appearance: Present: A&O X 3, no acute distress Exam: . - Head Head exam: Present: atraumatic, normal inspection - Eye Eye exam: Present: EOMI, normal appearance - Neck Neck exam general surgery: Present: full ROM, normal inspection - Respiratory Respiratory exam: Present: CTAB - Cardiovascular Cardiovascular exam: Present: RRR, +S1, +S2 - GI/Abdominal GI/Abdominal exam: Present: normal bowel sounds, soft - Expanded Lower Extremities Exam Lower Leg exam: Present: abrasion, full ROM, swelling - Neurological Exam Neurological exam: Present: alert, oriented X3, no focal deficits - Psychiatric Psychiatric exam: Present: normal affect, normal mood - Patient Status Disposition: Home, Self-Care Condition: Fair Functional capacity at discharge: independent ambulation Overall status at discharge: patient is back to baseline - Discharge Instructions Follow Up With: Roz Fisher MD [Partnered Physician] - (patient will see coffee attendant at the HD Clinic) NONE,PCP [Primary Care Provider] - Additional Instructions: Patient is instructed to be compliant with his dialysis sessions as this might risk his life take your medications . - Diet and Activity Activity: increase activity as tolerated Diet: low salt diet, other (renal diet)
--- NOTE | 2019-04-09 16:07 | Event Note ---
Date of Encounter: 04/09/19 Time of Encounter: 09:30 to serve as attending attestation to prog note 04/09 while awaiting completion of resident note I examined this patient and my medical decision-making was reviewed with the Resident Physician Dr Adames. I agree with the documented findings, disposition and treatment plan as described except to the extent set forth below. Mr gudino is admitted with hyperkalemia and ESRD with multiple missed outpt HD sessions Awake in HD. tired, no sob, no lower ext edema. requesting to speak with regarding dc plan gen- alert, awake,appears stated age cv- reg rate and rhythm, normal s1,s2, no pitting le edema, no jvd lungs- ctabl, normal resp effort on room air neuro- AAOx3 volume Overload 2/2 ESRD missed HD sessions-improving w HD/UF as per nephro Hyperkalemia, mild today- in HD, cont to monitor, on tele Nephro feels he requires further inpt HD sessions and he will remain in hospital at this time He has already noted to that whenever he is discharged he will appeal discharge given his social situation, though he has refused any assistance from in finding a retirement for him
--- NOTE | 2019-04-09 16:16 | Internal Med Progress Note ---
<Katelyn Adames I - Last Filed: 04/09/19 16:21> Hospitalist Progress Note - Encounter Date of Encounter: 04/09/19 Time of Encounter: 08:40 - Subjective Interval History: today patient was doing well except of feeling that is little tired , he has no chest pain or shortness of breath , no increase BLLE , just mentioned a new nodule or bump in his leg that he thinks it is new . denies fever or chills . he was doing his four dialysis session - Exam Vitals: Temp Pulse Resp BP Pulse Ox 98.1 F 75 16 145/80 98 04/09/19 16:00 04/09/19 16:00 04/09/19 16:00 04/09/19 16:00 04/09/19 16:00 Exam: General: no acute distress , A&AX3 HEENT: Atraumatic, Normocephaly, sclera unicteric Neck: supple , Full ROM , trachea midline Cardiac: RRR , S1+. S2+ Lungs: Normal Breath Sounds Bilaterally, No Wheeze, Rales, Rhonchi Abdomen: Soft, Non-Tender ,no organomegaly , +bowel sounds Extremities: +1 BLLE No Clubbing, No Cyanosis,or edema , Normal Pulses Skin : intact , Normal color Psychiatric : normal affect, normal mood Nuero : alert, normal gait, oriented X3 - Assessment and Plan (1) Volume overload Current Visit: Yes Status: Acute Assessment and Plan: patient presented with Shortness of breath after missing 2 dialysis sessions at ER BUN elevated to 95, creatinine 13.4, potassium elevated at 6.5. BNP elevated at 3034 he is feeling much better his creatinine today is 7.4, BUN 37 , k 5.4 Today was his 4rd dialysis session nephro recommend to continue dialysis plan : continue dialysis strict I's and O's daily weights renal diet avoidance of nephrotoxic agents continue vitals monitoring repeat BMP in morning . (2) ESRD (end stage renal disease) on dialysis Current Visit: Yes Status: Acute Assessment and Plan: patient presented with Shortness of breath after missing 2 dialysis sessions he is feeling much better his creatinine today is 7.4, BUN 37 , k 5.4 Today was his 4rd dialysis session nephro recommend to continue dialysis plan : continue dialysis strict I's and O's daily weights renal diet avoidance of nephrotoxic agents continue vitals monitoring repeat BMP in morning . (3) Missed dialysis Current Visit: Yes Status: Acute Assessment and Plan: patient presented with Shortness of breath after missing 2 dialysis sessions patient is instructed that missing dialysis might risk his life plan as above for ESRD (4) Hyperkalemia Current Visit: Yes Status: Acute Assessment and Plan: nitial potassium was 6.5, resolved with HD now it is 5.4 EKG was negative for any new ischemic changes continue monitoring - Time Spent with Patient Total time spent is greater than 50% in coordination of care (as documented) at patient's floor/unit and/or counseling patient: Internal Medicine: Result - Labs CBC & Chem 7: 04/09/19 05:42 04/09/19 05:42 Labs: Short CBC 04/09/19 Range/Units 05:42 WBC 6.2 (4.3-11.1) K/mcL Hgb 11.1 L (12.9-16.9) g/dL Hct 36.0 L (37.5-50.1) % Plt Count 161 (140-400) K/mcL Neutrophils # 3.7 (1.6-8.9) K/mcL BMP 04/09/19 05:42 Sodium 134 L Potassium 5.4 H Chloride 98 Carbon Dioxide 28 BUN 37 H Creatinine 7.42 H Glucose 90 Calcium 9.1 - ABG Interpretation ABG results: PT/INR, D-dimer PT 14.4 Seconds (9.4-12.1) H 04/06/19 20:35 Consult Discharge Plan - Plan Additional Instructions: Patient is instructed to be compliant with his dialysis sessions as this might risk his life take your medications . Referrals: Roz Fisher MD [Partnered Physician] - (patient will see nozzleman at the HD Clinic) NONE,PCP [Primary Care Provider] - <Rebecca Chirinos - Last Filed: 04/09/19 17:30> Hospitalist Progress Note - Encounter Date of Encounter: 04/09/19 - Exam Vitals: Temp Pulse Resp BP Pulse Ox 98.1 F 75 16 145/80 98 04/09/19 16:00 04/09/19 16:00 04/09/19 16:00 04/09/19 16:00 04/09/19 16:00 - Time Spent with Patient Total time spent is greater than 50% in coordination of care (as documented) at patient's floor/unit and/or counseling patient: Internal Medicine: Result - Labs CBC & Chem 7: 04/09/19 05:42 04/09/19 05:42 Labs: Short CBC 04/09/19 Range/Units 05:42 WBC 6.2 (4.3-11.1) K/mcL Hgb 11.1 L (12.9-16.9) g/dL Hct 36.0 L (37.5-50.1) % Plt Count 161 (140-400) K/mcL Neutrophils # 3.7 (1.6-8.9) K/mcL BMP 04/09/19 05:42 Sodium 134 L Potassium 5.4 H Chloride 98 Carbon Dioxide 28 BUN 37 H Creatinine 7.42 H Glucose 90 Calcium 9.1 - ABG Interpretation ABG results: PT/INR, D-dimer PT 14.4 Seconds (9.4-12.1) H 04/06/19 20:35
--- NOTE | 2019-04-09 17:54 | Nephrology Progress Note ---
Date of Encounter: 04/09/19 Time of Encounter: 12:00 - Assessment and Plan (1) ESRD (end stage renal disease) on dialysis Current Visit: Yes Status: Acute Continue HD with UF as tolerated May need another UF session tomorrow Would need home health care social worker for placement to [facility] vs help with housing and if moving to [place], will need his HD transferred from [facility] to [facility] Will also need permcath removed now that we're cannulating AV access as a huge infection risk given noncompliance (2) Dyspnea Current Visit: Yes Status: Acute Qualifiers: Dyspnea type: dyspnea on exertion Qualified Code(s): R06.09 - Other forms of dyspnea (3) Hyperkalemia Current Visit: Yes Status: Acute Potassium noted at 5.4, should improve after HD today Renal diet advised (4) Noncompliance Current Visit: Yes Status: Acute (5) Missed dialysis Current Visit: Yes Status: Acute Subjective Principal diagnosis: difficulty in breathing Interval history: Interim noted, pt seen and examined on HD doing better bu still with significant amount of fluid overload from missing several HD sessions. Pt reports that he is essentially homeless with nowhere tog o after discharge. He has family in [place] but not sure how things would work and will need HD transfer to [place] if going to live there Objective - Vital Signs Vital signs: Vital Signs Temp Pulse Resp BP Pulse Ox 04/09/19 16:00 98.1 F 75 16 145/80 98 04/09/19 13:48 98.0 F 79 17 143/83 96 04/09/19 13:35 97.9 F 18 149/87 04/09/19 13:20 108/51 04/09/19 13:05 117/66 04/09/19 12:50 139/108 04/09/19 12:35 190/108 04/09/19 12:20 161/104 04/09/19 12:05 141/84 04/09/19 11:50 152/93 04/09/19 11:35 151/101 04/09/19 11:20 158/46 04/09/19 11:05 163/83 04/09/19 10:50 142/113 04/09/19 10:35 149/91 04/09/19 10:20 169/101 04/09/19 10:05 176/100 04/09/19 09:50 144/88 04/09/19 09:35 152/90 04/09/19 09:20 155/97 04/09/19 09:05 155/98 04/09/19 08:50 98 F 16 162/101 04/09/19 07:38 97.9 F 69 16 163/97 93 04/09/19 03:43 98.2 F 73 16 161/102 97 04/08/19 23:53 98.2 F 67 16 156/98 99 04/08/19 20:23 97.7 F 70 16 152/97 97 Intake and Output 04/09/19 04/09/19 04/09/19 07:59 15:59 23:59 Intake Total 240 / 1920 1320 / 1920 360 / 1920 Output Total 5600 / 5600 Balance 240 / -3680 -4280 / -3680 360 / -3680 Intake: Oral 240 / 1320 720 / 1320 360 / 1320 Intake, Rinseback and Flushes 600 / 600 Output: Urine 0 / 0 Total Dialysis (HD) Output 5600 / 5600 Other: Meal Lunch Dinner Percent of Meal Consumed 100% 100% Weight 169.3 kg Hemodialysis Net Fluid Removed 5000 (mL) Patient Weight 04/09/19 23:59 Weight 169.3 kg - General Appearance General appearance: Present: obese, chronically ill EENT: Present: ATNC, mucous membranes moist Neck: Present: no JVD, supple Additional Comments: good areation ant bilat Cardiology: Present: edema (LE bilat), normal S1, normal S2 Dialysis Vascular Access: Arteriovenous Fistula, Venous Catheter (permcath in place) thrill: Yes bruit: Yes Gastrointestinal: Present: no tenderness, no guarding, distended (with ascites) Neurologic: Present: no focal deficit Musculoskeletal: Present: no deformities Psychiatric: Present: mood/affect appropriate, cooperative - Lab 04/09/19 05:42 04/09/19 05:42 Most recent lab results 04/09/19 05:42 Calcium 9.1 Consult Discharge Plan - Plan Additional Instructions: Patient is instructed to be compliant with his dialysis sessions as this might risk his life take your medications . Referrals: Roz Fisher MD [Partnered Physician] - (patient will see core baker at the HD Clinic) NONE,PCP [Primary Care Provider] -
[2019-04-10 06:40] LABS: Basophils # 0.1 K/mcL (0.0-0.2); Basophils % 1.1 %; Eosinophils # 0.4 K/mcL (0.0-0.6); Eosinophils % 6.7 %; Hematocrit 35.9 % (37.5-50.1); Hemoglobin 11.2 g/dL (12.9-16.9); Immature Granulocytes % 0.3 % (0-4); Lymphocytes # 1.2 K/mcL (0.6-4.6); Lymphocytes % 18.4 %; Mean Corpuscular HGB Conc 31.2 g/dL (31.6-35.5); Mean Platelet Volume 10.2 fL (9.4-12.4); Monocytes # 0.7 K/mcL (0.0-1.3); Monocytes % 10.7 %; Platelet Count 162 K/mcL (140-400); Red Blood Count 3.86 M/mcL (4.19-5.50); Red Cell Distribution Width 14.3 % (11.5-14.5); Segmented Neutrophils % 62.8 %; White Blood Count 6.4 K/mcL (4.3-11.1)
[2019-04-10 07:00] LABS: Calcium 9.3 mg/dL (8.6-10.3); Potassium 4.9 mEq/L (3.5-5.1)
[2019-04-10] MEDS: Aspirin Enteric Coated 81 MG Tablet PO SCH (08:30)
[2019-04-10] MEDS: Metoprolol XL (24 HR) Succ 50 MG TAB.ER.24H PO SCH ×2 (08:37→12:10)
[2019-04-10] MEDS ORDERED: 0.9 % Sodium Chloride 250 ML IVC PRN (08:43)
--- NOTE | 2019-04-10 11:50 | Internal Med Progress Note ---
<Rebecca Chirinos - Last Filed: 04/10/19 13:36> Hospitalist Progress Note - Encounter Date of Encounter: 04/10/19 - Exam Vitals: Temp Pulse Resp BP Pulse Ox 98.3 F 71 17 132/79 98 04/10/19 11:50 04/10/19 11:50 04/10/19 11:50 04/10/19 11:50 04/10/19 11:50 - Time Spent with Patient Total time spent is greater than 50% in coordination of care (as documented) at patient's floor/unit and/or counseling patient: Internal Medicine: Result - Labs CBC & Chem 7: 04/10/19 05:58 04/10/19 05:58 Labs: Short CBC 04/10/19 Range/Units 05:58 WBC 6.4 (4.3-11.1) K/mcL Hgb 11.2 L (12.9-16.9) g/dL Hct 35.9 L (37.5-50.1) % Plt Count 162 (140-400) K/mcL Neutrophils # 4.0 (1.6-8.9) K/mcL BMP 04/10/19 05:58 Sodium 134 L Potassium 4.9 Chloride 96 L Carbon Dioxide 28 BUN 34 H Creatinine 6.20 H Glucose 100 Calcium 9.3 - ABG Interpretation ABG results: PT/INR, D-dimer PT 14.4 Seconds (9.4-12.1) H 04/06/19 20:35 Consult Discharge Plan - Plan Additional Instructions: Patient is instructed to be compliant with his dialysis sessions as this might risk his life take your medications . Referrals: Roz Fisher MD [Partnered Physician] - (patient will see ornament setter at the HD Clinic) NONE,PCP [Primary Care Provider] - - Attending Attestation I examined this patient and my medical decision-making was reviewed with the Resident Physician Dr Gill. I agree with the documented findings, disposition and treatment plan as described except to the extent set forth below. Mr Snyder is admitted with hyperkalemia and ESRD with multiple missed outpt HD sessions Awake in HD. no sob, le edema improving, thinking about going to [place] and transferring HD chair to there gen- alert, awake,appears stated age cv- reg rate and rhythm, normal s1,s2, trace pitting le edema lungs- ctabl, normal resp effort on room air neuro- AAOx3 volume Overload 2/2 ESRD missed HD sessions-improving w HD/UF as per nephro Hyperkalemia,resolved with serial HD sessions Homelessness/ Non compliance with HD -as d/w nephro by our team, he is likely going to require his HD chair be transferred to [place], Dr Wynne is working on this -he is high risk infection due to non compliance and she recommends permacath removal by IR thursday 04/12 Nephro feels he requires further inpt HD sessions and he will remain in hospital at this time He has already noted to SW that whenever he is discharged he will appeal discharge given his social situation, though he has refused any assistance from SW in finding a usp for him SW and Nephro to assist in transition of HD to [place] will dispo when nephro feels is renally stable <Nupur Gill - Last Filed: 04/10/19 17:56> Hospitalist Progress Note - Encounter Date of Encounter: 04/10/19 Time of Encounter: 11:50 - Subjective Interval History: Patient seen and examined at the bedside after dialysis. He denied any complaints. He denied fever, chills, shortness of breath, abdominal pain. Later the nurse reported patient was nauseous and requested Zofran. Social work is consulted to help with discharge planning as the patient is homeless and will require help for making dialysis appointments. - Exam Vitals: Temp Pulse Resp BP Pulse Ox 98.5 F 65 18 171/89 100 04/10/19 11:33 04/10/19 07:30 04/10/19 11:33 04/10/19 11:33 04/10/19 07:30 Exam: Gen.: Vitals noted. No acute distress. AAOx3 HEENT: oropharynx clear, Normocephalic, atraumatic Cardiac: RRR, no murmur, +S1/S2 Pulmonary: CTA bilaterally, no wheezes, rales or rhonchi, equal chest expansion Abdomen: soft, nontender, distended, Bowel sounds noted, no guarding Extremities: no BLE edema, nontender calf, no cyanosis or clubbing Neuro: A&Ox3, moves all extremities, no focal deficits Psych: Appropriate mood and behavior - Assessment and Plan (1) Volume overload Current Visit: Yes Status: Acute Assessment and Plan: Patient presented with shortness of breath and volume overload secondary to missing to dialysis appointments. He is significant history of noncompliance. -BNP 3034 -BUN 34 (97 on admission) -chest x-ray showing pulmonary vascular congestion suggesting pulmonary edema -patient is clinically improved and denies shortness of breath Plan -nephrology consulted and managing dialysis, they believe that he will require further dialysis treatments while in patient. They recommend removal of perma cath by interventional radiology since the patient is severely noncompliant and is at risk for infection. -IR consulted for Friday to remove perma cath -continue with dialysis per nephrology -social work consulted to help with discharge planning as he is homeless and will likely require help with making the dialysis appointments (2) Hyperkalemia Current Visit: No Status: Resolved Assessment and Plan: On initial presentation patient was hyperkalemic with a potassium of 6.5 -this is secondary to the patient missing dialysis -potassium 4.9 -EKG negative for peaked T wave's or other ST or T wave changes indicating ischemia -will continue to monitor. Continue with dialysis per schedule (3) ESRD (end stage renal disease) on dialysis Current Visit: Yes Status: Acute Assessment and Plan: Patient has ESRD for which she has dialysis on Friday, Friday, Friday. He follows with Dr. Wynne. He is severely noncompliant. -Plan as above (4) Obesity, morbid, BMI 40.0-49.9 Current Visit: No Status: Chronic Assessment and Plan: Needs lifestyle changes (5) Homeless single person Current Visit: Yes Status: Acute Assessment and Plan: He is homeless. Social work helping as above. (6) DVT prophylaxis Current Visit: No Status: Acute Assessment and Plan: SCD - Time Spent with Patient Total time spent is greater than 50% in coordination of care (as documented) at patient's floor/unit and/or counseling patient: Internal Medicine: Result - Labs CBC & Chem 7: 04/10/19 05:58 04/10/19 05:58 Labs: Short CBC 04/10/19 Range/Units 05:58 WBC 6.4 (4.3-11.1) K/mcL Hgb 11.2 L (12.9-16.9) g/dL Hct 35.9 L (37.5-50.1) % Plt Count 162 (140-400) K/mcL Neutrophils # 4.0 (1.6-8.9) K/mcL BMP 04/10/19 05:58 Sodium 134 L Potassium 4.9 Chloride 96 L Carbon Dioxide 28 BUN 34 H Creatinine 6.20 H Glucose 100 Calcium 9.3 - ABG Interpretation ABG results: PT/INR, D-dimer PT 14.4 Seconds (9.4-12.1) H 04/06/19 20:35
--- NOTE | 2019-04-10 14:10 | Nephrology Progress Note ---
Date of Encounter: 04/10/19 Time of Encounter: 12:00 - Assessment and Plan (1) ESRD (end stage renal disease) on dialysis Current Visit: Yes Status: Acute Continue UF as tolerated with goal of 4-5kg today Next Hd planned for friday Would need elementary school social worker for placement to [facility] vs help with housing and if moving to [place], will need his HD transferred from [facility] to [facility] Will also need permcath removed now that we're cannulating AV access as a huge infection risk given noncompliance (2) Dyspnea Current Visit: Yes Status: Acute Qualifiers: Dyspnea type: dyspnea on exertion Qualified Code(s): R06.09 - Other forms of dyspnea (3) Hyperkalemia Current Visit: Yes Status: Acute (4) Noncompliance Current Visit: Yes Status: Acute (5) Missed dialysis Current Visit: Yes Status: Acute Subjective Principal diagnosis: difficulty in breathing Interval history: Pt seen and examined on HD feeling better. He has received 4 consecutive treatments of HD/UF as of today with close to 50lbs of fluid removed Objective - Vital Signs Vital signs: Vital Signs Temp Pulse Resp BP Pulse Ox 04/10/19 11:50 98.3 F 71 17 132/79 98 04/10/19 11:33 98.5 F 18 171/89 04/10/19 11:05 161/91 04/10/19 10:50 155/89 04/10/19 10:35 149/97 04/10/19 10:20 159/98 04/10/19 10:05 163/87 04/10/19 09:50 169/92 04/10/19 09:35 158/86 04/10/19 09:20 153/88 04/10/19 09:05 98.9 F 18 164/09 04/10/19 07:30 98.3 F 65 16 150/92 100 04/10/19 03:19 98.3 F 69 18 148/89 96 04/09/19 23:35 98.6 F 78 17 137/85 98 04/09/19 19:07 98.3 F 75 17 148/90 98 04/09/19 16:00 98.1 F 75 16 145/80 98 Intake and Output 04/09/19 04/10/19 04/10/19 23:59 07:59 15:59 Intake Total 840 / 2400 240 / 1560 1320 / 1560 Output Total 0 / 5600 5600 / 5600 Balance 840 / -3200 240 / -4040 -4280 / -4040 Intake: Oral 840 / 1800 240 / 960 720 / 960 Intake, Rinseback and Flushes 600 / 600 Output: Urine 0 / 0 0 / 0 Total Dialysis (HD) Output 5600 / 5600 Other: Meal Dinner 2 goldfish crackers, 2 strawberry ice creams Lunch Percent of Meal Consumed 100% 100% Weight 169.3 kg Hemodialysis Net Fluid Removed 5000 (mL) - Lab 04/10/19 05:58 04/10/19 05:58 Most recent lab results 04/10/19 05:58 Calcium 9.3 Consult Discharge Plan - Plan Additional Instructions: Patient is instructed to be compliant with his dialysis sessions as this might risk his life take your medications . Referrals: Roz Fisher MD [Partnered Physician] - (patient will see rn perioperative at the HD Clinic) NONE,PCP [Primary Care Provider] -
[2019-04-10] MEDS: Ondansetron 4 MG/2 ML VIAL IVP PRN ×2 (16:19→22:22)
[2019-04-11 05:42] LABS: Basophils # 0.1 K/mcL (0.0-0.2); Basophils % 1.1 %; Eosinophils # 0.5 K/mcL (0.0-0.6); Eosinophils % 6.5 %; Hemoglobin 11.6 g/dL (12.9-16.9); Immature Granulocytes % 0.1 % (0-4); Lymphocytes # 1.6 K/mcL (0.6-4.6); Lymphocytes % 22.6 %; Mean Corpuscular HGB Conc 31.4 g/dL (31.6-35.5); Mean Corpuscular Volume 92.5 fL (83.0-100.0); Mean Platelet Volume 9.9 fL (9.4-12.4); Monocytes # 0.6 K/mcL (0.0-1.3); Monocytes % 8.9 %; Neutrophils # 4.3 K/mcL (1.6-8.9); Platelet Count 177 K/mcL (140-400); Red Cell Distribution Width 14.2 % (11.5-14.5); Segmented Neutrophils % 60.8 %; White Blood Count 7.1 K/mcL (4.3-11.1)
[2019-04-11 06:02] LABS: Calcium 9.5 mg/dL (8.6-10.3); Potassium 5.3 mEq/L (3.5-5.1)
--- NOTE | 2019-04-11 07:42 | Internal Med Progress Note ---
<Nupur Gill - Last Filed: 04/11/19 12:16> Hospitalist Progress Note - Encounter Date of Encounter: 04/11/19 Time of Encounter: 10:30 - Subjective Interval History: Patient seen and examined at bedside. He is resting comfortably plan on his iPad. He denies any shortness of breath, palpitations, fever, chills. He has no complaints at this time. Friday social work helping to determine placement due to homelessness and need for dialysis. - Exam Vitals: Temp Pulse Resp BP Pulse Ox 97.8 F 65 17 136/77 97 04/11/19 03:18 04/11/19 03:18 04/11/19 03:18 04/11/19 03:18 04/11/19 03:18 Exam: Gen.: Vitals noted. No acute distress. AAOx3 HEENT: oropharynx clear, Normocephalic, atraumatic, right perma cath Cardiac: RRR, no murmur, +S1/S2 Pulmonary: CTA bilaterally, no wheezes, rales or rhonchi, equal chest expansion Abdomen: soft, nontender, distended, Bowel sounds noted, no guarding Extremities: no BLE edema, nontender calf, no cyanosis or clubbing Neuro: A&Ox3, moves all extremities, no focal deficits Psych: Appropriate mood and behavior - Assessment and Plan (1) Volume overload Current Visit: Yes Status: Acute Assessment and Plan: Patient presented with shortness of breath and volume overload secondary to missing to dialysis appointments. He is significant history of noncompliance. -BNP 3034 -BUN 34 (97 on admission) -chest x-ray showing pulmonary vascular congestion suggesting pulmonary edema -patient is back to baseline and has no shortness of breath. Plan -improved -nephrology consulted and managing dialysis, they believe that he will require further dialysis treatments while in patient. They recommend removal of perma cath by interventional radiology since the patient is severely noncompliant and is at risk for infection. -IR consulted for Friday to remove perma cath -continue with dialysis per nephrology -social work consulted to help with discharge planning as he is homeless and will likely require help with making the dialysis appointments (2) Hyperkalemia Current Visit: No Status: Resolved Assessment and Plan: On initial presentation patient was hyperkalemic with a potassium of 6.5 -this is secondary to the patient missing dialysis -potassium 5.3 (yesterday 4.9) -EKG negative for peaked T wave's or other ST or T wave changes indicating ischemia -Patient denies any palpitations or chest pain. Since the patient will get dialysis tomorrow and his potassium fluctuates with dialysis will not give kayexalate at this time but will await dialysis tomorrow. -will continue to monitor. Continue with dialysis per schedule (3) ESRD (end stage renal disease) on dialysis Current Visit: Yes Status: Acute Assessment and Plan: Patient has ESRD for which she has dialysis on Friday, Friday, Friday. He follows with Dr. Wynne. He is severely noncompliant. -Plan as above (4) Obesity, morbid, BMI 40.0-49.9 Current Visit: No Status: Chronic Assessment and Plan: Needs lifestyle changes (5) DVT prophylaxis Current Visit: No Status: Acute Assessment and Plan: SCD (6) Homeless single person Current Visit: Yes Status: Acute Assessment and Plan: He is homeless. Social work helping as above. - Time Spent with Patient Total time spent is greater than 50% in coordination of care (as documented) at patient's floor/unit and/or counseling patient: Internal Medicine: Result - Labs CBC & Chem 7: 04/11/19 05:28 04/11/19 05:28 Labs: Short CBC 04/11/19 Range/Units 05:28 WBC 7.1 (4.3-11.1) K/mcL Hgb 11.6 L (12.9-16.9) g/dL Hct 37.0 L (37.5-50.1) % Plt Count 177 (140-400) K/mcL Neutrophils # 4.3 (1.6-8.9) K/mcL BMP 04/11/19 05:28 Sodium 132 L Potassium 5.3 H Chloride 94 L Carbon Dioxide 26 BUN 51 H Creatinine 7.78 H Glucose 86 Calcium 9.5 - ABG Interpretation ABG results: PT/INR, D-dimer PT 14.4 Seconds (9.4-12.1) H 04/06/19 20:35 Consult Discharge Plan - Plan Additional Instructions: Patient is instructed to be compliant with his dialysis sessions as this might risk his life take your medications . Referrals: Roz Fisher MD [Partnered Physician] - (patient will see plant buyer at the HD Clinic) NONE,PCP [Primary Care Provider] - <Rebecca Cihrinos - Last Filed: 04/11/19 12:49> Hospitalist Progress Note - Encounter Date of Encounter: 04/11/19 - Exam Vitals: Temp Pulse Resp BP Pulse Ox 97.8 F 59 16 150/91 100 04/11/19 12:10 04/11/19 12:10 04/11/19 12:10 04/11/19 12:10 04/11/19 12:10 - Assessment and Plan (1) Obesity, morbid, BMI 40.0-49.9 Current Visit: No Status: Chronic (2) DVT prophylaxis Current Visit: No Status: Acute (3) Hyperkalemia Current Visit: No Status: Resolved (4) ESRD (end stage renal disease) on dialysis Current Visit: Yes Status: Acute (5) Volume overload Current Visit: Yes Status: Acute (6) Homeless single person Current Visit: Yes Status: Acute - Time Spent with Patient Total time spent is greater than 50% in coordination of care (as documented) at patient's floor/unit and/or counseling patient: Internal Medicine: Result - Labs CBC & Chem 7: 04/11/19 05:28 04/11/19 05:28 Labs: Short CBC 04/11/19 Range/Units 05:28 WBC 7.1 (4.3-11.1) K/mcL Hgb 11.6 L (12.9-16.9) g/dL Hct 37.0 L (37.5-50.1) % Plt Count 177 (140-400) K/mcL Neutrophils # 4.3 (1.6-8.9) K/mcL BMP 04/11/19 05:28 Sodium 132 L Potassium 5.3 H Chloride 94 L Carbon Dioxide 26 BUN 51 H Creatinine 7.78 H Glucose 86 Calcium 9.5 - ABG Interpretation ABG results: PT/INR, D-dimer PT 14.4 Seconds (9.4-12.1) H 04/06/19 20:35
[2019-04-11] MEDS: Metoprolol XL (24 HR) Succ 50 MG TAB.ER.24H PO SCH (07:59)
[2019-04-11] MEDS: Aspirin Enteric Coated 81 MG Tablet PO SCH (08:00)
--- NOTE | 2019-04-11 09:00 | Nephrology Progress Note ---
Date of Encounter: 04/11/19 Time of Encounter: 10:00 - Assessment and Plan (1) ESRD (end stage renal disease) on dialysis Current Visit: Yes Status: Acute (2) Dyspnea Current Visit: Yes Status: Acute Qualifiers: Dyspnea type: dyspnea on exertion Qualified Code(s): R06.09 - Other forms of dyspnea (3) Hyperkalemia Current Visit: Yes Status: Acute (4) Noncompliance Current Visit: Yes Status: Acute (5) Missed dialysis Current Visit: Yes Status: Acute Subjective Principal diagnosis: difficulty in breathing Interval history: Pt seen and examined s/p UF yesterday Objective - Vital Signs Vital signs: Vital Signs Temp Pulse Resp BP Pulse Ox 04/11/19 07:41 97.8 F 64 16 122/75 100 04/11/19 03:18 97.8 F 65 17 136/77 97 04/10/19 23:05 98 F 60 17 143/80 98 04/10/19 18:28 97.9 F 63 17 138/85 97 04/10/19 16:28 98.1 F 70 16 153/99 97 04/10/19 11:50 98.3 F 71 17 132/79 98 04/10/19 11:33 98.5 F 18 171/89 04/10/19 11:05 161/91 04/10/19 10:50 155/89 04/10/19 10:35 149/97 04/10/19 10:20 159/98 04/10/19 10:05 163/87 04/10/19 09:50 169/92 04/10/19 09:35 158/86 04/10/19 09:20 153/88 04/10/19 09:05 98.9 F 18 164/09 Intake and Output 04/10/19 04/11/19 04/11/19 23:59 07:59 15:59 Intake Total 720 / 2280 240 / 480 240 / 480 Output Total 0 / 0 Balance 720 / -3320 240 / 480 240 / 480 Intake: Oral 720 / 1680 240 / 480 240 / 480 Output: Urine 0 / 0 Other: Meal 2 pks saltine crackers 4 pks of saltines and 1 cola Breakfast Percent of Meal Consumed 50% 100% # Voids 1 - Lab 04/11/19 05:28 04/11/19 05:28 Most recent lab results 04/11/19 05:28 Calcium 9.5 Consult Discharge Plan - Plan Additional Instructions: Patient is instructed to be compliant with his dialysis sessions as this might risk his life take your medications . Referrals: Roz Fisher MD [Partnered Physician] - (patient will see power truck driver at the HD Clinic) NONE,PCP [Primary Care Provider] -
[2019-04-12 06:07] LABS: Hematocrit 34.3 % (37.5-50.1); Hemoglobin 10.8 g/dL (12.9-16.9); Mean Corpuscular HGB Conc 31.5 g/dL (31.6-35.5); Mean Corpuscular Hemoglobin 28.7 pg (28.0-33.3); Mean Corpuscular Volume 91.2 fL (83.0-100.0); Mean Platelet Volume 10.1 fL (9.4-12.4); Platelet Count 159 K/mcL (140-400); Red Blood Count 3.76 M/mcL (4.19-5.50); Red Cell Distribution Width 14.2 % (11.5-14.5); White Blood Count 6.9 K/mcL (4.3-11.1)
[2019-04-12 06:19] LABS: INR 1.1; Prothrombin Time 12.5 Seconds (9.4-12.1)
[2019-04-12 06:29] LABS: Calcium 9.3 mg/dL (8.6-10.3)
[2019-04-12 06:31] LABS: Potassium 6.6 mEq/L (3.5-5.1)
[2019-04-12] MEDS: Aspirin Enteric Coated 81 MG Tablet PO SCH (08:16)
--- NOTE | 2019-04-12 08:25 | Internal Med Progress Note ---
<Rebecca Chirinos - Last Filed: 04/12/19 14:20> Hospitalist Progress Note - Encounter Date of Encounter: 04/12/19 - Exam Vitals: Temp Pulse Resp BP Pulse Ox 97.9 F 59 18 124/71 99 04/12/19 10:00 04/12/19 08:07 04/12/19 10:00 04/12/19 13:00 04/12/19 08:07 - Assessment and Plan (1) Obesity, morbid, BMI 40.0-49.9 Current Visit: No Status: Chronic (2) DVT prophylaxis Current Visit: No Status: Acute (3) Hyperkalemia Current Visit: No Status: Resolved (4) ESRD (end stage renal disease) on dialysis Current Visit: Yes Status: Acute (5) Volume overload Current Visit: Yes Status: Acute (6) Homeless single person Current Visit: Yes Status: Acute - Time Spent with Patient Total time spent is greater than 50% in coordination of care (as documented) at patient's floor/unit and/or counseling patient: Internal Medicine: Result - Labs CBC & Chem 7: 04/12/19 05:37 04/12/19 12:05 Labs: Short CBC 04/12/19 Range/Units 05:37 WBC 6.9 (4.3-11.1) K/mcL Hgb 10.8 L (12.9-16.9) g/dL Hct 34.3 L (37.5-50.1) % Plt Count 159 (140-400) K/mcL BMP 04/12/19 04/12/19 05:37 12:05 Sodium 130 L Potassium 6.6 H* 4.2 D Chloride 93 L Carbon Dioxide 23 BUN 71 H Creatinine 9.36 H Glucose 91 Calcium 9.3 - ABG Interpretation ABG results: PT/INR, D-dimer PT 12.5 Seconds (9.4-12.1) H 04/12/19 05:37 Consult Discharge Plan - Plan Additional Instructions: Patient is instructed to be compliant with his dialysis sessions as this might risk his life take your medications . Referrals: Roz Fisher MD [Partnered Physician] - (patient will see trap operator at the HD Clinic) NONE,PCP [Primary Care Provider] - - Attending Attestation I examined this patient and my medical decision-making was reviewed with the Resident Physician Dr Mack. I agree with the documented findings, disposition and treatment plan as described except to the extent set forth below. Mr Snyder is admitted with hyperkalemia and ESRD with multiple missed outpt HD sessions Awake, no sob, no cp or palpitations gen- alert, awake,appears stated age, cv- reg rate and rhythm, normal s1,s2, no le edema, lungs- ctabl, normal resp effort on room air, neuro- AAOx3 volume Overload 2/2 ESRD missed HD sessions / Hyperkalemia- HD today, as team d/w Dr Wynne arranging [facility] seat and removing IR permacath (today) -once new seat arranged he is medically ready for dc, SW aware Homelessness/ Non compliance with HD dispo will be to new living arrangement in [facility] once new HD seat confirmed barrier to discharge has been pt homelessness, him needing to decide if he was moving [place] or not, so that then nephro and SW could arrangge new HD seat- these decisions have now finally been made by him and SW / nephro working to arrange HD follow up hope to be able to dc in next 24 hrs <Chitra Mack - Last Filed: 04/12/19 19:09> Hospitalist Progress Note - Encounter Date of Encounter: 04/12/19 Time of Encounter: 19:09 - Subjective Interval History: Pt was seen and examined at bedside. Was abt to have HD when seen. No acute complaints. Knows that permacath will be removed soon, but not sure when. Patien t denies fever, chills, headache, weakness, chest pain, palpitations, difficulty breathing, abd pain, N/V/D/C. - Exam Vitals: Temp Pulse Resp BP Pulse Ox 97.7 F 59 17 130/76 99 04/12/19 08:07 04/12/19 08:07 04/12/19 04:04 04/12/19 08:07 04/12/19 08:07 Exam: Constitutional: alert, oriented, in no acute distress, oriented X 3, well nourished, well-developed Head: normocephalic, atraumatic Heart: normal, regular rate and rhythm, no murmurs, S1, S2 normal Lungs: clear to auscultation, no wheezes, rales, rhonchi Abdomen: soft, nontender, nondistended, no masses palpable, bowel sounds present and normal, no hepatosplenomegaly, no guarding or rigidity, no CVA tenderness Extremities: no clubbing, cyanosis, or edema Skin: dry, intact, scar from previous AV fistula attempt surgery on left upper arm Psych: alert, oriented, cooperative with exam, good eye contact, cognitive function intact, judgement and insight good, speech clear, thought process logical, goal directed - Summary of Assessment and Plan Summary of Assessment and Plan: 1. Volume overload 2/2 ESRD, dialysis - BUN 71, creat 9.36 - CXR: pul vascular congestion suggesting pulm edema - denies difficulty breathing, chest pain - nephro: getting HD today - continue to monitor labs - encourage compliance to dialysis treatment - social work on board to help arrange future dialysis appts given his current status (homeless) - IR consulted for permacath removal per nephro recs 2. Hyperkalemia - received HD today - resolved, current Potassium 4.2 - denies any chest pain, palpitations - per nephro recs, continue HD - continue to monitor labs 3. DVT ppx - scd 4. homeless single person - currently homesless, trying to move in with brother in [place], [place] - social work on board - Time Spent with Patient Total time spent is greater than 50% in coordination of care (as documented) at patient's floor/unit and/or counseling patient: Internal Medicine: Result - Labs CBC & Chem 7: 04/12/19 05:37 04/12/19 12:05 Labs: Short CBC 04/12/19 Range/Units 05:37 WBC 6.9 (4.3-11.1) K/mcL Hgb 10.8 L (12.9-16.9) g/dL Hct 34.3 L (37.5-50.1) % Plt Count 159 (140-400) K/mcL BMP 04/12/19 05:37 Sodium 130 L Potassium 6.6 H* Chloride 93 L Carbon Dioxide 23 BUN 71 H Creatinine 9.36 H Glucose 91 Calcium 9.3 - ABG Interpretation ABG results: PT/INR, D-dimer PT 12.5 Seconds (9.4-12.1) H 04/12/19 05:37
--- NOTE | 2019-04-12 08:40 | Internal Med Progress Note ---
Hospitalist Progress Note - Encounter Date of Encounter: 04/12/19 - Exam Vitals: Temp Pulse Resp BP Pulse Ox 97.7 F 59 17 130/76 99 04/12/19 08:07 04/12/19 08:07 04/12/19 04:04 04/12/19 08:07 04/12/19 08:07 - Time Spent with Patient Total time spent is greater than 50% in coordination of care (as documented) at patient's floor/unit and/or counseling patient: Internal Medicine: Result - Labs CBC & Chem 7: 04/12/19 05:37 04/12/19 05:37 Labs: Short CBC 04/12/19 Range/Units 05:37 WBC 6.9 (4.3-11.1) K/mcL Hgb 10.8 L (12.9-16.9) g/dL Hct 34.3 L (37.5-50.1) % Plt Count 159 (140-400) K/mcL BMP 04/12/19 05:37 Sodium 130 L Potassium 6.6 H* Chloride 93 L Carbon Dioxide 23 BUN 71 H Creatinine 9.36 H Glucose 91 Calcium 9.3 - ABG Interpretation ABG results: PT/INR, D-dimer PT 12.5 Seconds (9.4-12.1) H 04/12/19 05:37 Consult Discharge Plan - Plan Additional Instructions: Patient is instructed to be compliant with his dialysis sessions as this might risk his life take your medications . Referrals: Roz Fisher MD [Partnered Physician] - (patient will see ad operations specialist at the HD Clinic) NONE,PCP [Primary Care Provider] -
[2019-04-12] MEDS ORDERED: Ergocalciferol (VIT D2) 50,000 UNIT (1.25MG) CAP PO SCH (09:00)
[2019-04-12] MEDS ORDERED: 0.9 % Sodium Chloride 250 ML IVC PRN (09:23)
[2019-04-12] MEDS ORDERED: *HR* Heparin 10,000 UNIT/10 ML VIAL IV PRN (09:23)
--- NOTE | 2019-04-12 10:59 | Nephrology Progress Note ---
Date of Encounter: 04/12/19 Time of Encounter: 10:57 - Assessment and Plan (1) Dyspnea Current Visit: Yes Status: Acute Appears improving with HD. Qualifiers: Dyspnea type: dyspnea on exertion Qualified Code(s): R06.09 - Other forms of dyspnea (2) Hyperkalemia Current Visit: Yes Status: Acute Potassium noted at 6.6, should improve after HD today Renal diet advised (3) Noncompliance Current Visit: Yes Status: Acute See above. (4) Missed dialysis Current Visit: Yes Status: Acute Noncompliant patient. Educated on the importance of. (5) ESRD (end stage renal disease) on dialysis Current Visit: Yes Status: Acute HD in progress for today. Would need social worker health services for placement to [facility] vs help with housing and if moving to [place], will need his HD transferred from [facility] to [facility] Will also need permcath removed now that we're cannulating AV access as a huge infection risk given noncompliance Subjective Principal diagnosis: difficulty in breathing Interval history: Pt seen and examined during HD, tolerating well. Denies any chest pain or shortness of breath. Denies nausea, vomiting, diarrhea. Objective - Vital Signs Vital signs: Vital Signs Temp Pulse Resp BP Pulse Ox 04/12/19 08:07 97.7 F 59 130/76 99 04/12/19 04:04 98.0 F 61 17 137/86 100 04/11/19 22:47 98.1 F 59 16 143/88 99 04/11/19 18:53 97.8 F 60 18 123/72 97 04/11/19 16:22 97.7 F 57 16 121/76 99 04/11/19 12:10 97.8 F 59 16 150/91 100 Intake and Output 04/11/19 04/12/19 04/12/19 23:59 07:59 15:59 Intake Total 600 / 1320 Balance 600 / 1320 Intake: Oral 600 / 1320 Other: Meal Dinner Percent of Meal Consumed 95% Weight 166.8 kg Patient Weight 04/12/19 23:59 Weight 166.8 kg - General Appearance General appearance: Present: well-developed, well-nourished, obese EENT: Present: ATNC, hearing intact, vision intact Neck: Present: supple Respiratory: Present: clear, wheezing Cardiology: Present: edema (+1 edema noted to bilat lower extremities.), normal S1, normal S2 Dialysis Vascular Access: Arteriovenous Fistula, Venous Catheter (DRSG C/D/I) thrill: Yes bruit: Yes Gastrointestinal: Present: normoactive bowel sounds, no tenderness, no guarding Integumentary: Present: no rash, warm and dry Neurologic: Present: alert and oriented x3 Musculoskeletal: Present: no deformities, no erythema Psychiatric: Present: mood/affect appropriate, cooperative - Lab 04/12/19 05:37 04/12/19 05:37 Most recent lab results 04/12/19 05:37 Calcium 9.3 Consult Discharge Plan - Plan Additional Instructions: Patient is instructed to be compliant with his dialysis sessions as this might risk his life take your medications . Referrals: oRz Fisher MD [Partnered Physician] - (patient will see carriage feeder at the HD Clinic) NONE,PCP [Primary Care Provider] -
[2019-04-12] MEDS: Metoprolol XL (24 HR) Succ 50 MG TAB.ER.24H PO SCH (16:59)
[2019-04-13] MEDS: Metoprolol XL (24 HR) Succ 50 MG TAB.ER.24H PO SCH (07:39)
[2019-04-13] MEDS: Aspirin Enteric Coated 81 MG Tablet PO SCH (07:39)
[2019-04-13 07:46] LABS: Basophils # 0.1 K/mcL (0.0-0.2); Basophils % 0.9 %; Eosinophils # 0.4 K/mcL (0.0-0.6); Hematocrit 33.9 % (37.5-50.1); Hemoglobin 10.8 g/dL (12.9-16.9); Immature Granulocytes % 0.3 % (0-4); Lymphocytes % 15.2 %; Mean Corpuscular HGB Conc 31.9 g/dL (31.6-35.5); Mean Corpuscular Volume 91.1 fL (83.0-100.0); Mean Platelet Volume 10.3 fL (9.4-12.4); Monocytes # 0.6 K/mcL (0.0-1.3); Monocytes % 9.1 %; Neutrophils # 4.5 K/mcL (1.6-8.9); Platelet Count 164 K/mcL (140-400); Red Blood Count 3.72 M/mcL (4.19-5.50); Red Cell Distribution Width 14.3 % (11.5-14.5); Segmented Neutrophils % 68.5 %; White Blood Count 6.5 K/mcL (4.3-11.1)
[2019-04-13 08:45] LABS: Calcium 9.4 mg/dL (8.6-10.3); Phosphorous 7.5 mg/dL (2.7-4.5); Potassium 5.5 mEq/L (3.5-5.1)
--- NOTE | 2019-04-13 09:27 | Internal Med Progress Note ---
<Chitra Mack - Last Filed: 04/13/19 09:27> Hospitalist Progress Note - Encounter Date of Encounter: 04/13/19 - Exam Vitals: Temp Pulse Resp BP Pulse Ox 98.0 F 65 18 146/98 100 04/13/19 07:40 04/13/19 07:40 04/13/19 07:40 04/13/19 07:40 04/13/19 07:40 - Time Spent with Patient Total time spent is greater than 50% in coordination of care (as documented) at patient's floor/unit and/or counseling patient: Internal Medicine: Result - Labs CBC & Chem 7: 04/13/19 06:30 04/13/19 06:30 Labs: Short CBC 04/13/19 Range/Units 06:30 WBC 6.5 (4.3-11.1) K/mcL Hgb 10.8 L (12.9-16.9) g/dL Hct 33.9 L (37.5-50.1) % Plt Count 164 (140-400) K/mcL Neutrophils # 4.5 (1.6-8.9) K/mcL BMP 04/12/19 04/13/19 12:05 06:30 Sodium 133 L Potassium 4.2 D 5.5 H D Chloride 92 L Carbon Dioxide 28 BUN 56 H Creatinine 7.21 H Glucose 94 Calcium 9.4 - ABG Interpretation ABG results: PT/INR, D-dimer PT 12.5 Seconds (9.4-12.1) H 04/12/19 05:37 - Impressions Impressions Chest X-Ray 04/06/19 20:21 IMPRESSION: Pulmonary vascular congestion. Correlate with clinical evidence of developing pulmonary edema. No acute abnormality detected otherwise. D/ / Mihai Morales MD / Mihai Morales MD Interpreting Provider: Mihai Morales MD Consult Discharge Plan - Plan Additional Instructions: Patient is instructed to be compliant with his dialysis sessions as this might risk his life take your medications . Referrals: Roz Fisher MD [Partnered Physician] - (patient will see prototype machine operator at the HD Clinic) NONE,PCP [Primary Care Provider] - <Rebecca Chirinos - Last Filed: 04/13/19 16:15> Hospitalist Progress Note - Encounter Date of Encounter: 04/13/19 - Exam Vitals: Temp Pulse Resp BP Pulse Ox 98.3 F 61 18 148/91 100 04/13/19 12:08 04/13/19 12:08 04/13/19 12:08 04/13/19 12:08 04/13/19 12:08 - Assessment and Plan (1) Obesity, morbid, BMI 40.0-49.9 Current Visit: No Status: Chronic (2) DVT prophylaxis Current Visit: No Status: Acute (3) Hyperkalemia Current Visit: No Status: Resolved (4) ESRD (end stage renal disease) on dialysis Current Visit: Yes Status: Acute (5) Volume overload Current Visit: Yes Status: Acute (6) Homeless single person Current Visit: Yes Status: Acute - Time Spent with Patient Total time spent is greater than 50% in coordination of care (as documented) at patient's floor/unit and/or counseling patient: Internal Medicine: Result - Labs CBC & Chem 7: 04/13/19 06:30 04/13/19 06:30 Labs: Short CBC 04/13/19 Range/Units 06:30 WBC 6.5 (4.3-11.1) K/mcL Hgb 10.8 L (12.9-16.9) g/dL Hct 33.9 L (37.5-50.1) % Plt Count 164 (140-400) K/mcL Neutrophils # 4.5 (1.6-8.9) K/mcL BMP 04/13/19 06:30 Sodium 133 L Potassium 5.5 H D Chloride 92 L Carbon Dioxide 28 BUN 56 H Creatinine 7.21 H Glucose 94 Calcium 9.4 - ABG Interpretation ABG results: PT/INR, D-dimer PT 12.5 Seconds (9.4-12.1) H 04/12/19 05:37 - Impressions Impressions Chest X-Ray 04/06/19 20:21 IMPRESSION: Pulmonary vascular congestion. Correlate with clinical evidence of developing pulmonary edema. No acute abnormality detected otherwise. D/ / Mihai Morales MD / Mihai Morales MD Interpreting Provider: Mihai Morales MD - Attending Attestation I examined this patient and my medical decision-making was reviewed with the Resident Physician Dr Mack. I agree with the documented findings, disposition and treatment plan as described except to the extent set forth below. Mr Snyder is admitted with hyperkalemia and ESRD with multiple missed outpt HD sessions Awake,no complaints, denies sob, palpitations or chest pain gen- alert, awake,appears stated age, cv- reg rate and rhythm, normal s1,s2, lungs- ctabl, normal resp effort on room air, neuro- AAOx3 volume Overload 2/2 ESRD missed HD sessions / Hyperkalemia- HD as per [facility] seat in process and permacath removal Homelessness/ Non compliance with HD barrier to discharge has been pt homelessness, him needing to decide if he was moving to [place] or not, so that then nephro and CARLENE could arrange new HD seat Nephro has medically cleared for DC [facility] has sent paperwork to [facility] however they are closed on Tuesdays plan is to dc once transfer approved hopefully first thing in am
--- NOTE | 2019-04-13 14:06 | Nephrology Progress Note ---
Date of Encounter: 04/13/19 Time of Encounter: 14:04 - Assessment and Plan (1) ESRD (end stage renal disease) on dialysis Current Visit: Yes Status: Acute HD completed yesterday. Total fluid removal of 27 kgs over this hospitalization. therapeutic activities services worker working on transfer to [facility] unit. (2) Dyspnea Current Visit: Yes Status: Acute Appears improving with HD. Qualifiers: Dyspnea type: dyspnea on exertion Qualified Code(s): R06.09 - Other forms of dyspnea (3) Hyperkalemia Current Visit: Yes Status: Acute Potassium noted at 5.5, Kayexalate ordered. Renal diet advised (4) Noncompliance Current Visit: Yes Status: Acute See above. (5) Missed dialysis Current Visit: Yes Status: Acute Noncompliant patient. Educated on the importance of. Subjective Principal diagnosis: difficulty in breathing Interval history: Pt seen and examined overall doing well. Denies any chest pain or shortness of breath. Denies nausea, vomiting, diarrhea. States he now has a place to stay and is ready to transfer to [facility] for HD. Objective - Vital Signs Vital signs: Vital Signs Temp Pulse Resp BP Pulse Ox 04/13/19 12:08 98.3 F 61 18 148/91 100 04/13/19 07:40 98.0 F 65 18 146/98 100 04/13/19 04:47 98.3 F 64 17 154/96 99 04/13/19 00:19 98.2 F 63 16 149/94 99 04/12/19 19:06 98.1 F 72 17 129/79 96 04/12/19 14:30 97.5 F L 15 145/83 Intake and Output 04/12/19 04/13/19 04/13/19 23:59 07:59 15:59 Intake Total 120 / 840 720 / 840 Balance 120 / 840 720 / 840 Intake: Oral 120 / 840 720 / 840 Other: Meal Lunch Percent of Meal Consumed 100% Stool Size Moderate Stool Consistency loose liquid Stool Color Brown # Voids 1 # Bowel Movements 1 Weight 166.8 kg Patient Weight 04/13/19 23:59 Weight 166.8 kg - General Appearance General appearance: Present: obese, chronically ill EENT: Present: ATNC, hearing intact, vision intact Neck: Present: supple Respiratory: Present: wheezing Cardiology: Present: edema (Generalized edema noted to bilateral lower extremities), normal S1, normal S2 Dialysis Vascular Access: Arteriovenous Fistula thrill: Yes bruit: Yes Gastrointestinal: Present: normoactive bowel sounds, no tenderness, no guarding Integumentary: Present: no rash, warm and dry Neurologic: Present: alert and oriented x3 Musculoskeletal: Present: no deformities, no erythema Psychiatric: Present: mood/affect appropriate, cooperative - Lab 04/13/19 06:30 04/13/19 06:30 Most recent lab results 04/13/19 06:30 Calcium 9.4 Phosphorus 7.5 H Consult Discharge Plan - Plan Additional Instructions: Patient is instructed to be compliant with his dialysis sessions as this might risk his life take your medications . Referrals: Roz Fisher MD [Partnered Physician] - (patient will see gear milling machine set up operator at the HD Clinic) NONE,PCP [Primary Care Provider] -
--- NOTE | 2019-04-13 16:34 | Discharge Summary ---
<Chitra Mack - Last Filed: 04/13/19 17:44> - NOTES TO OUTPATIENT PROVIDER Notes to Outpatient Provider: Pt was admitted for volume overload after missing multiple rounds outpatient HD sessions. Patient is currently homeless and wants to move in with some family in [facility]. During hospital stay, received few sessions of HD. No complications. Nephro has cleared for discharge. Continue HD outpatient per previous dialysis regimen. Arrangements have been made for patient to continue HD in [place], [place]. Date of Encounter: 04/13/19 Time of Encounter: 16:30 - Discharge Diagnosis (1) Volume overload Priority: Primary Status: Acute Qualifiers: Hypervolemia type: unspecified Qualified Code(s): E87.70 - Fluid overload, unspecified (2) ESRD (end stage renal disease) on dialysis Priority: Secondary Status: Chronic (3) Hyperkalemia Priority: Secondary Status: Acute (4) Homeless single person Priority: Secondary Status: Acute Hospital course: Mr. Snyder is a 33 year old male who presented on 04/06/19 for volume overload after missing multiple HD sessions. She was admitted for fluid overload and hyperkalemia. Hyperkalemia corrected after hemodialysis. Patient had recently become homeless which had prevented him from getting his dialysis sessions. He was kept in the hospital for further hemodialysis sessions until social work was able to find a placement for him. No consultations during this hospital stay. Patient would like to move in with family member in [place], [place]. Nephrology recommends patient continued to receive hemodialysis sessions once he gets placement. Arrangements have been made for patient at [facility] in [place], [place]. - Time Spent with Patient Total time spent providing and/or coordinating discharge services: - Discharge Medications Prescriptions: Continued Sevelamer [Renvela] 2,400 mg PO TIDWM Aspirin [Lo-Dose Aspirin EC] 81 mg PO DAILY Metoprolol Succinate [Toprol Xl] 100 mg PO DAILY Ergocalciferol (VITAMIN D2) [Vitamin D2] 50,000 unit PO QWEEK Lisinopril [Zestril] 10 mg PO DAILY Home Medications: Sevelamer [Renvela] 2,400 mg PO TIDWM 04/25/17 [History] Aspirin [Lo-Dose Aspirin EC] 81 mg PO DAILY 08/03/18 [History] Metoprolol Succinate [Toprol Xl] 100 mg PO DAILY 01/07/19 [History] Ergocalciferol (VITAMIN D2) [Vitamin D2] 50,000 unit PO QWEEK 02/05/19 [History] Lisinopril [Zestril] 10 mg PO DAILY 04/08/19 [History] Allergies/Adverse Reactions: Allergy/AdvReac Type Severity Reaction Status Date / Time No Known Allergies Allergy Verified 03/15/19 09:27 Date of admission: 04/07/19 11:11 Primary care physician: PCP NONE Consults: 04/06/19 21:32 Consult to Nephrology [CONS] Stat Consulting Provider: Kidney Amelia/STEPH/JEANETTE/NICOLASA Reason for Consult: Known patient, hyperkalemia, missed dialysis Call Completed: Yes 04/06/19 23:39 Consult to Dialysis [CONS] Stat 04/07/19 07:45 Consult to Dialysis [CONS] ONCE 04/08/19 07:30 Consult to Dialysis [CONS] ONCE 04/08/19 09:18 Consult to Nurse Navigator [CONS] Routine Comment: hd 04/09/19 06:45 Consult to Dialysis [CONS] ONCE 04/10/19 08:45 Consult to Dialysis [CONS] ONCE 04/10/19 13:48 Consult to Interventional Radiology [CONS] Routine Consulting Provider: Radiology Interventional Cols Reason for Consult: perma cath removal Call Completed: No 04/11/19 07:39 Consult to Boat Person [CONS] Routine Reason for SW Consult: placement help. if moves to [place] will be set up with [facility] there 04/12/19 09:30 Consult to Dialysis [CONS] ONCE 04/12/19 11:02 Consult to Interventional Radiology [CONS] Routine Consulting Provider: Radiology Interventional Cols Reason for Consult: Please remove tunneled cath. Time Notified: 11:02 Call Completed: Yes Discharging clinician: Chitra Mack - Constitutional Vitals: Temp Pulse Resp BP Pulse Ox 98.3 F 61 18 148/91 100 04/13/19 12:08 04/13/19 12:08 04/13/19 12:08 04/13/19 12:08 04/13/19 12:08 Exam: Constitutional: alert, oriented, in no acute distress, oriented X 3, well nourished, well-developed Head: normocephalic, atraumatic Heart: normal, regular rate and rhythm, no murmurs, S1, S2 normal Lungs: clear to auscultation, no wheezes, rales, rhonchi Abdomen: soft, nontender, nondistended, no masses palpable, bowel sounds present and normal, no hepatosplenomegaly, no guarding or rigidity, no CVA tenderness, no fluid wave Extremities: no clubbing, cyanosis, or edema Skin: dry, intact, scar from previous AV fistula attempt surgery on left upper arm Psych: alert, oriented, cooperative with exam, good eye contact, cognitive function intact, judgement and insight good, speech clear, thought process logical, goal directed - Patient Status Disposition: Home, Self-Care Condition: Good Functional capacity at discharge: independent ambulation Overall status at discharge: patient is back to baseline - Discharge Instructions Follow Up With: Roz Fisher MD [Partnered Physician] - (patient will see padder at the HD Clinic) NONE,PCP [Primary Care Provider] - Additional Instructions: Continue taking home medications. Advised adhering to dialysis regimen as instructed by nephrology. Please return to the ED if you experience chest pain, shortness of breath, fluid overload, palpitations, fevers, chills, or any other concerning symptoms. - Diet and Activity Activity: resume usual activities as tolerated Diet: other (Renal diet) <Rebecca Chirinos - Last Filed: 04/14/19 06:32> Date of Encounter: 04/14/19 - Discharge Diagnosis (1) Obesity, morbid, BMI 40.0-49.9 Status: Chronic (2) DVT prophylaxis Status: Acute (3) Hyperkalemia Status: Resolved (4) ESRD (end stage renal disease) on dialysis Status: Chronic (5) Volume overload Status: Acute (6) Homeless single person Status: Acute Hospital course: Mr. Snyder is a 33 year old male - Time Spent with Patient Total time spent providing and/or coordinating discharge services: Date of admission: 04/07/19 11:11 Primary care physician: PCP NONE Consults: 04/06/19 21:32 Consult to Nephrology [CONS] Stat Consulting Provider: Kidney Amelia/STEPH/JEANETTE/NICOLASA Reason for Consult: Known patient, hyperkalemia, missed dialysis Call Completed: Yes 04/06/19 23:39 Consult to Dialysis [CONS] Stat 04/07/19 07:45 Consult to Dialysis [CONS] ONCE 04/08/19 07:30 Consult to Dialysis [CONS] ONCE 04/08/19 09:18 Consult to Nurse Navigator [CONS] Routine Comment: hd 04/09/19 06:45 Consult to Dialysis [CONS] ONCE 04/10/19 08:45 Consult to Dialysis [CONS] ONCE 04/10/19 13:48 Consult to Interventional Radiology [CONS] Routine Consulting Provider: Radiology Interventional Cols Reason for Consult: perma cath removal Call Completed: No 04/11/19 07:39 Consult to Boat Person [CONS] Routine Reason for SW Consult: placement help. if moves to [place] will be set up with [facility] there 04/12/19 09:30 Consult to Dialysis [CONS] ONCE 04/12/19 11:02 Consult to Interventional Radiology [CONS] Routine Consulting Provider: Radiology Interventional Cols Reason for Consult: Please remove tunneled cath. Time Notified: 11:02 Call Completed: Yes - Constitutional Vitals: Temp Pulse Resp BP Pulse Ox 97.9 F 60 18 124/76 96 04/14/19 04:04 04/14/19 04:04 04/14/19 04:04 04/14/19 04:04 04/14/19 04:04 - Attending Attestation I examined this patient and my medical decision-making was reviewed with the Resident Physician Dr Mack. I agree with the documented findings, disposition and treatment plan as described except to the extent set forth below. Mr Snyder is admitted with hyperkalemia and ESRD with multiple missed outpt HD sessions Awake, he has no complaints, no sob, le edema or chest pain gen- alert, awake,appears stated age, cv- reg rate and rhythm, normal s1,s2, no le edema, lungs- ctabl, neuro- AAOx3 volume Overload 2/2 ESRD missed HD sessions / Hyperkalemia- HD as per nephro, awaiting response from [place] regarding HD transfer then medically cleared for dc as per nephro Homelessness/ Non compliance with HD dispo will be to new living arrangement in [place] once new HD seat confirmed SW sent referral to [place] [facility] but they were closed 04/13 hope to be able to dc in next 24 hrs
[2019-04-13] MEDS: Ondansetron 4 MG/2 ML VIAL IVP PRN (17:18)
[2019-04-14 02:00] LABS: Hematocrit 32.5 % (37.5-50.1); Hemoglobin 10.4 g/dL (12.9-16.9); Mean Corpuscular Hemoglobin 29.6 pg (28.0-33.3); Mean Corpuscular Volume 92.6 fL (83.0-100.0); Platelet Count 144 K/mcL (140-400); Red Blood Count 3.51 M/mcL (4.19-5.50); Red Cell Distribution Width 14.1 % (11.5-14.5); White Blood Count 5.9 K/mcL (4.3-11.1)
[2019-04-14 02:19] LABS: Calcium 9.2 mg/dL (8.6-10.3)
[2019-04-14] MEDS: Aspirin Enteric Coated 81 MG Tablet PO SCH (08:16)
[2019-04-14] MEDS ORDERED: 0.9 % Sodium Chloride 250 ML IVC PRN (08:32)
[2019-04-14] MEDS ORDERED: *HR* Heparin 10,000 UNIT/10 ML VIAL IV PRN ×2 (08:32)
[2019-04-14] MEDS ORDERED: 0.9 % Sodium Chloride 1,000 ML PRIME SCH (08:45)
--- NOTE | 2019-04-14 09:44 | Internal Med Progress Note ---
Hospitalist Progress Note - Encounter Date of Encounter: 04/14/19 Time of Encounter: 09:30 - Subjective Interval History: Mr Snyder is currently admitted for ESRD and volume overload. He remains moderate to high risk due to potential for worsening clinical status. Mr Snyder is doing OK. He is currently in dialysis. Arrangements being made for new dialysis chair time. Has no where to go today - going to stay with family beginning tomorrow. No fever or chills. No other complaints. - Exam Vitals: Temp Pulse Resp BP Pulse Ox 98.0 F 57 18 142/89 100 04/14/19 08:10 04/14/19 08:10 04/14/19 08:10 04/14/19 08:10 04/14/19 08:10 Exam: General: Alert and oriented. Comfortable at this time. Skin: Pale. No rash. H: Normocephalic. EENT: EOMI, Mucus membranes moist. Cardiovascular: Normal S1 & S2, no murmurs Pulse regular. Lungs: Normal breath sounds, Abdomen: Soft, non-tender, Normal bowel sounds. Extremities: No deformity, s, no joint swelling or clubbing. Neurological: Normal cognition and motor skills. Pulses: radial pulses normal +2. Rest of the physical exam is non contributory - Assessment and Plan (1) DVT prophylaxis Current Visit: No Status: Acute Assessment and Plan: SCD (2) Hyperkalemia Current Visit: No Status: Resolved Assessment and Plan: Resolved. (3) ESRD (end stage renal disease) on dialysis Current Visit: Yes Status: Chronic Assessment and Plan: Working on outpatient dialysis chair time. (4) Volume overload Current Visit: Yes Status: Acute Assessment and Plan: Patient presented with shortness of breath and volume overload secondary to missing to dialysis appointments. He is significant history of noncompliance. -BNP 3034 -BUN 34 (97 on admission) -chest x-ray showing pulmonary vascular congestion suggesting pulmonary edema -patient is back to baseline and has no shortness of breath. Plan - Volume overload improved with dialysis. Anticipate d/c tomorrow. (5) Homeless single person Current Visit: Yes Status: Acute Assessment and Plan: To go home with family tomorrow. (6) Noncompliance Current Visit: Yes Status: Chronic Assessment and Plan: Chronic issue (7) Anemia in CKD (chronic kidney disease) Current Visit: No Status: Chronic Assessment and Plan: Chronic issue (8) Tobacco abuse Current Visit: No Status: Chronic Assessment and Plan: Cessation counselling (9) Hypertension Current Visit: No Status: Suspected Assessment and Plan: Stable. Continue home meds. - Time Spent with Patient Total time spent is greater than 50% in coordination of care (as documented) at patient's floor/unit and/or counseling patient: Internal Medicine: Result - Labs CBC & Chem 7: 04/14/19 01:03 04/14/19 01:03 Labs: Short CBC 04/14/19 Range/Units 01:03 WBC 5.9 (4.3-11.1) K/mcL Hgb 10.4 L (12.9-16.9) g/dL Hct 32.5 L (37.5-50.1) % Plt Count 144 (140-400) K/mcL BMP 04/14/19 01:03 Sodium 132 L Potassium 5.0 Chloride 92 L Carbon Dioxide 26 BUN 72 H Creatinine 8.36 H Glucose 103 Calcium 9.2 - ABG Interpretation ABG results: PT/INR, D-dimer PT 12.5 Seconds (9.4-12.1) H 04/12/19 05:37 Consult Discharge Plan - Plan Additional Instructions: Continue taking home medications. Advised adhering to dialysis regimen as instructed by nephrology. Please return to the ED if you experience chest pain, shortness of breath, fluid overload, palpitations, fevers, chills, or any other concerning symptoms. Referrals: Roz Fisher MD [Partnered Physician] - (patient will see mill tender second operator at the HD Clinic) NONE,PCP [Primary Care Provider] - (4) Volume overload Qualifiers: Hypervolemia type: other Qualified Code(s): E87.79 - Other fluid overload (7) Anemia in CKD (chronic kidney disease) Qualifiers: Chronic kidney disease stage: on chronic dialysis Qualified Code(s): N18.6 - End stage renal disease; D63.1 - Anemia in chronic kidney disease; Z99.2 - Dependence on renal dialysis (9) Hypertension Qualifiers: Hypertension type: renovascular hypertension Qualified Code(s): I15.0 - Renovascular hypertension
[2019-04-14] MEDS: Metoprolol XL (24 HR) Succ 50 MG TAB.ER.24H PO SCH (14:19)
--- NOTE | 2019-04-14 15:35 | Nephrology Progress Note ---
Date of Encounter: 04/14/19 Time of Encounter: 15:33 - Assessment and Plan (1) ESRD (end stage renal disease) on dialysis Current Visit: Yes Status: Chronic HD completed today. Approximate total fluid removal of 27 kgs over this hospitalization. fire services plumber working on transfer to [place] [facility] unit. May go from a renal standpoint if chair time is set. (2) Dyspnea Current Visit: Yes Status: Acute Appears improving with HD. Qualifiers: Dyspnea type: dyspnea on exertion Qualified Code(s): R06.09 - Other forms of dyspnea (3) Hyperkalemia Current Visit: Yes Status: Acute Potassium noted at 5. Renal diet advised Code(s): E87.5 - Hyperkalemia (4) Noncompliance Current Visit: Yes Status: Acute See above. (5) Missed dialysis Current Visit: Yes Status: Acute Noncompliant patient. Educated on the importance of. Subjective Principal diagnosis: difficulty in breathing Interval history: Pt seen and examined overall doing well. Denies any chest pain or shortness of breath. Denies nausea, vomiting, diarrhea. States he now has a place to stay and is ready to transfer to [place] for HD. Objective - Vital Signs Vital signs: Vital Signs Temp Pulse Resp BP Pulse Ox 04/14/19 14:00 98.1 F 18 149/82 04/14/19 13:15 139/79 04/14/19 13:00 130/77 04/14/19 12:45 136/79 04/14/19 12:30 135/85 04/14/19 12:15 149/86 04/14/19 12:00 140/79 04/14/19 11:47 125/72 04/14/19 11:30 127/71 04/14/19 11:15 118/69 04/14/19 11:00 122/69 04/14/19 10:45 139/82 04/14/19 10:30 114/67 04/14/19 10:15 131/69 04/14/19 10:00 130/69 04/14/19 09:45 129/73 04/14/19 09:30 128/78 04/14/19 09:15 98.1 F 20 147/90 04/14/19 08:10 98.0 F 57 18 142/89 100 04/14/19 04:04 97.9 F 60 18 124/76 96 04/13/19 23:34 97.6 F 68 17 134/79 96 04/13/19 19:23 98.1 F 71 17 145/79 96 04/13/19 16:32 98.0 F 61 18 124/75 99 Intake and Output 04/13/19 04/14/19 04/14/19 23:59 07:59 15:59 Intake Total 360 / 1200 840 / 840 Output Total 100 / 100 5600 / 5600 Balance 260 / 1100 -4760 / -4760 Intake: Oral 360 / 1200 240 / 240 Intake, Rinseback and Flushes 600 / 600 Output: Urine 0 / 0 Total Dialysis (HD) Output 5600 / 5600 Catheter 100 / 100 Other: Meal Dinner Breakfast Percent of Meal Consumed 100% 100% Weight 135.896 kg Hemodialysis Net Fluid Removed 5000 (mL) - General Appearance General appearance: Present: well-developed, well-nourished, obese EENT: Present: ATNC, hearing intact, vision intact Neck: Present: supple Respiratory: Present: clear Cardiology: Present: edema (Non pitting edema noted to bilat lower extremities and entire abdomen.), normal S1, normal S2 Dialysis Vascular Access: Arteriovenous Fistula thrill: Yes bruit: Yes Gastrointestinal: Present: normoactive bowel sounds, no tenderness Integumentary: Present: no rash, warm and dry Neurologic: Present: alert and oriented x3 Musculoskeletal: Present: no deformities, no erythema Psychiatric: Present: mood/affect appropriate, cooperative - Lab 04/14/19 01:03 04/14/19 01:03 Consult Discharge Plan - Plan Additional Instructions: Continue taking home medications. Advised adhering to dialysis regimen as instructed by nephrology. Please return to the ED if you experience chest pain, shortness of breath, fluid overload, palpitations, fevers, chills, or any other concerning symptoms. Referrals: Roz Fisher MD [Partnered Physician] - (patient will see rewinder operator helper at the HD Clinic) NONE,PCP [Primary Care Provider] -
[2019-04-14] MEDS: Acetaminophen 325 MG TABLET PO PRN (16:47)
[2019-04-15 05:47] LABS: Hematocrit 33.5 % (37.5-50.1); Hemoglobin 10.7 g/dL (12.9-16.9); Mean Corpuscular HGB Conc 31.9 g/dL (31.6-35.5); Mean Corpuscular Hemoglobin 29.3 pg (28.0-33.3); Mean Corpuscular Volume 91.8 fL (83.0-100.0); Mean Platelet Volume 9.7 fL (9.4-12.4); Platelet Count 141 K/mcL (140-400); Red Blood Count 3.65 M/mcL (4.19-5.50); Red Cell Distribution Width 14.1 % (11.5-14.5); White Blood Count 5.2 K/mcL (4.3-11.1)
[2019-04-15 06:11] LABS: Calcium 9.5 mg/dL (8.6-10.3); Potassium 5.1 mEq/L (3.5-5.1)
[2019-04-15] MEDS: Metoprolol XL (24 HR) Succ 50 MG TAB.ER.24H PO SCH (07:55)
[2019-04-15] MEDS: Aspirin Enteric Coated 81 MG Tablet PO SCH (07:55)
--- NOTE | 2019-04-15 10:11 | Nephrology Progress Note ---
Date of Encounter: 04/15/19 Time of Encounter: 10:09 - Assessment and Plan (1) ESRD (end stage renal disease) on dialysis Current Visit: Yes Status: Chronic Plan for HD tomorrow, outpatient. Removed over 30 kgs this hospitalization. [facility] chair time confirmed. May go from a renal standpoint if chair time is set. (2) Dyspnea Current Visit: Yes Status: Acute Appears improving with HD. Qualifiers: Dyspnea type: dyspnea on exertion Qualified Code(s): R06.09 - Other forms of dyspnea (3) Hyperkalemia Current Visit: Yes Status: Acute Potassium noted at 5.1. Renal diet advised Code(s): E87.5 - Hyperkalemia (4) Noncompliance Current Visit: Yes Status: Chronic See above. (5) Missed dialysis Current Visit: Yes Status: Acute Noncompliant patient. Educated on the importance of. Subjective Principal diagnosis: difficulty in breathing Interval history: Pt seen and examined overall doing well. Denies any chest pain or shortness of breath. Denies nausea, vomiting, diarrhea. States he now has a place to stay and is ready to transfer to [place] for HD. Objective - Vital Signs Vital signs: Vital Signs Temp Pulse Resp BP Pulse Ox 04/15/19 08:11 98.0 F 64 16 150/97 100 04/15/19 05:41 98.1 F 76 17 128/81 100 04/15/19 00:50 98.1 F 70 17 125/76 94 04/14/19 20:13 98.1 F 66 18 126/78 100 04/14/19 16:42 98.0 F 57 17 132/70 99 04/14/19 14:00 98.1 F 18 149/82 04/14/19 13:15 139/79 04/14/19 13:00 130/77 04/14/19 12:45 136/79 04/14/19 12:30 135/85 04/14/19 12:15 149/86 04/14/19 12:00 140/79 04/14/19 11:47 125/72 04/14/19 11:30 127/71 04/14/19 11:15 118/69 04/14/19 11:00 122/69 04/14/19 10:45 139/82 04/14/19 10:30 114/67 04/14/19 10:15 131/69 Intake and Output 04/14/19 04/15/19 04/15/19 23:59 07:59 15:59 Intake Total 960 / 1800 0 / 600 600 / 600 Output Total 0 / 5600 0 / 0 Balance 960 / -3800 0 / 600 600 / 600 Intake: Oral 960 / 1200 0 / 600 600 / 600 Output: Urine 0 / 0 0 / 0 Other: Meal Dinner Breakfast Percent of Meal Consumed 100% 0% - General Appearance General appearance: Present: well-developed, well-nourished, obese EENT: Present: ATNC, hearing intact, vision intact Neck: Present: supple Respiratory: Present: clear Cardiology: Present: edema (Trace bilat lower extremity edema noted. Ascites noted to abdomen.), normal S1, normal S2 Dialysis Vascular Access: Arteriovenous Fistula thrill: Yes bruit: Yes Gastrointestinal: Present: normoactive bowel sounds, no tenderness, no guarding Integumentary: Present: no rash, warm and dry Neurologic: Present: alert and oriented x3 Musculoskeletal: Present: no deformities, no erythema Psychiatric: Present: mood/affect appropriate, cooperative - Lab 04/15/19 05:14 04/15/19 05:14 Most recent lab results 04/15/19 05:14 Calcium 9.5 Consult Discharge Plan - Plan Additional Instructions: Continue taking home medications. Advised adhering to dialysis regimen as instructed by nephrology. Please return to the ED if you experience chest pain, shortness of breath, fluid overload, palpitations, fevers, chills, or any other concerning symptoms. Referrals: Roz Fisher MD [Partnered Physician] - (patient will see welfare eligibility worker at the HD Clinic) NONE,PCP [Primary Care Provider] -
--- NOTE | 2019-04-15 10:34 | Internal Med Progress Note ---
<Chitra Mack - Last Filed: 04/15/19 15:10> Hospitalist Progress Note - Encounter Date of Encounter: 04/15/19 Time of Encounter: 15:10 - Subjective Interval History: Pt was seen and examined at bedside. Had another session of dialysis yesterday. Feels a little bloated, hasn't had any colace yet, hasn't had a BM for past two days. No other acute complaints today. Patient denies fever, chills, headache, weakness, chest pain, palpitations, difficulty breathing, abd pain, N/V/D, dysuria, urinary freq/urgency. - Exam Vitals: Temp Pulse Resp BP Pulse Ox 98.0 F 64 16 150/97 100 04/15/19 08:11 04/15/19 08:11 04/15/19 08:11 04/15/19 08:11 04/15/19 08:11 Exam: Constitutional: alert, oriented, in no acute distress, oriented X 3, well nourished, well-developed Head: normocephalic, atraumatic Heart: normal, regular rate and rhythm, no murmurs, S1, S2 normal Lungs: clear to auscultation, no wheezes, rales, rhonchi Abdomen: soft, nontender, mildly distended, no masses palpable, bowel sounds present and normal, no hepatosplenomegaly, no guarding or rigidity, no CVA tenderness Extremities: no clubbing, cyanosis, or edema Skin: dry, intact, scar from previous AV fistula attempt surgery on left upper arm Psych: alert, oriented, cooperative with exam, good eye contact, cognitive function intact, judgement and insight good, speech clear, thought process logical, goal directed - Assessment and Plan (1) Volume overload Current Visit: Yes Status: Acute Comments: - admits to some abd distension 2/2 constiaption for 2 days. denies chest, SOB, abd pain, N/V/D. No peripheral edema. - got dialysis yesterday - got abdominal paracentesis today, drained 4.6L of straw colored clear fluid - BUN 56 (prev 72) creat, 7.12 (prev 8.36) - CXR: pul vascular congestion suggesting pulm edema - nephro: adhere to MWF dialysis. - dialysis placement has been arranged. has arranged to go home to family. - planned for discharge today (2) ESRD (end stage renal disease) on dialysis Current Visit: Yes Status: Chronic Comments: - admits to some abd distension 2/2 constipation for 2 days. denies chest, SOB, abd pain, N/V/D. No peripheral edema. - got dialysis yesterday - BUN 56 (prev 72) creat, 7.12 (prev 8.36) - CXR: pul vascular congestion suggesting pulm edema - nephro: adhere to MWF dialysis. - dialysis placement has been arranged. has arranged to go home to family. - planned for discharge today (3) Hyperkalemia Current Visit: Yes Status: Acute Comments: - resolved - K+ 5.1 (4) Homeless single person Current Visit: Yes Status: Acute Comments: - resolved - has aranged to go home to family - Time Spent with Patient Total time spent is greater than 50% in coordination of care (as documented) at patient's floor/unit and/or counseling patient: Internal Medicine: Result - Labs CBC & Chem 7: 04/15/19 05:14 04/15/19 05:14 Labs: Short CBC 04/15/19 Range/Units 05:14 WBC 5.2 (4.3-11.1) K/mcL Hgb 10.7 L (12.9-16.9) g/dL Hct 33.5 L (37.5-50.1) % Plt Count 141 (140-400) K/mcL BMP 04/15/19 05:14 Sodium 135 L Potassium 5.1 Chloride 92 L Carbon Dioxide 31 H BUN 56 H Creatinine 7.12 H Glucose 96 Calcium 9.5 - ABG Interpretation ABG results: PT/INR, D-dimer PT 12.5 Seconds (9.4-12.1) H 04/12/19 05:37 - Impressions Impressions Tunnelled Catheter Removal 04/12/19 00:00 IMPRESSION: Successful removal of a tunneled dialysis catheter. D/ / Smith Watson MD / Smith Watson MD Interpreting Provider: Smith Watson MD Consult Discharge Plan - Plan Instructions: Chronic Kidney Disease (DC) Additional Instructions: Continue taking home medications. Advised adhering to dialysis regimen as instructed by nephrology. Please return to the ED if you experience chest pain, shortness of breath, fluid overload, palpitations, fevers, chills, or any other concerning symptoms. Referrals: Roz Fisher MD [Partnered Physician] - (patient will see demurrage agent at the [facility]) NONE,PCP [Primary Care Provider] - <Ralph Snyder - Last Filed: 04/15/19 15:19> Hospitalist Progress Note - Encounter Date of Encounter: 04/15/19 - Exam Vitals: Temp Pulse Resp BP Pulse Ox 97.7 F 65 17 144/93 100 04/15/19 12:40 04/15/19 12:40 04/15/19 12:40 04/15/19 12:40 04/15/19 12:40 - Assessment and Plan (1) DVT prophylaxis Current Visit: No Status: Acute (2) Hyperkalemia Current Visit: No Status: Resolved (3) ESRD (end stage renal disease) on dialysis Current Visit: Yes Status: Chronic Comments: - admits to some abd distension 2/2 constipation for 2 days. denies chest, SOB, abd pain, N/V/D. No peripheral edema. - got dialysis yesterday - BUN 56 (prev 72) creat, 7.12 (prev 8.36) - CXR: pul vascular congestion suggesting pulm edema - nephro: adhere to MWF dialysis. - dialysis placement has been arranged. has arranged to go home to family. - planned for discharge today (4) Volume overload Current Visit: Yes Status: Acute (5) Homeless single person Current Visit: Yes Status: Acute Comments: - resolved - has aranged to go home to family (6) Noncompliance Current Visit: Yes Status: Chronic (7) Anemia in CKD (chronic kidney disease) Current Visit: No Status: Chronic (8) Tobacco abuse Current Visit: No Status: Chronic (9) Hypertension Current Visit: No Status: Suspected - Time Spent with Patient Total time spent is greater than 50% in coordination of care (as documented) at patient's floor/unit and/or counseling patient: Internal Medicine: Result - Labs CBC & Chem 7: 04/15/19 05:14 04/15/19 05:14 Labs: Short CBC 04/15/19 Range/Units 05:14 WBC 5.2 (4.3-11.1) K/mcL Hgb 10.7 L (12.9-16.9) g/dL Hct 33.5 L (37.5-50.1) % Plt Count 141 (140-400) K/mcL BMP 04/15/19 05:14 Sodium 135 L Potassium 5.1 Chloride 92 L Carbon Dioxide 31 H BUN 56 H Creatinine 7.12 H Glucose 96 Calcium 9.5 - ABG Interpretation ABG results: PT/INR, D-dimer PT 12.5 Seconds (9.4-12.1) H 04/12/19 05:37 - Attending Attestation I examined this patient and my medical decision-making was reviewed with the Resident Physician on 04/15/19. I agree with the documented findings, disposition and treatment plan as described except to the extent set forth below. Mr Snyder is currently admitted for hyperkalemia and volume overload. He remains moderate risk. Mr Snyder is doing OK. No fever or chills. No CP. Wants paracentesis prior to discharge. Exam: Alert. Comfortable. NC. Mucus membranes dry. Heart reg. No wheeze. Abd with ascites. Edema present. Plan: Home today after paracentesis. <Chitra Mack S - Last Filed: 04/15/19 15:10> (1) Volume overload Qualifiers: Hypervolemia type: unspecified Qualified Code(s): E87.70 - Fluid overload, unspecified <Ralph Snyder Pramod - Last Filed: 04/15/19 15:19> (4) Volume overload Qualifiers: Hypervolemia type: other Qualified Code(s): E87.79 - Other fluid overload (7) Anemia in CKD (chronic kidney disease) Qualifiers: Chronic kidney disease stage: on chronic dialysis Qualified Code(s): N18.6 - End stage renal disease; D63.1 - Anemia in chronic kidney disease; Z99.2 - Dependence on renal dialysis (9) Hypertension Qualifiers: Hypertension type: renovascular hypertension Qualified Code(s): I15.0 - Renovascular hypertension
[2019-04-15 12:41] VITALS: BP 144/93
--- NOTE | 2019-04-15 14:51 | Procedure Note ---
Date of procedure: 04/15/19 Pre-op diagnosis: ascites Post-op diagnosis: same Procedure: Paracentesis Procedure Note INDICATION: Ascites PROCEDURE VAMP MAKER:Chitra Mack DO Supervising provider: Jeyson Baker DO Ultrasound used to greg location: yes CONSENT: Written consent obtained and placed in chart. PROCEDURE SUMMARY: The area was cleansed and draped in usual sterile fashion using chlorhexidine scrub. The right lower abdomen was prepped and draped in a sterile fashion using. 1% lidocaine was used to numb the skin, soft tissue and peritoneum. The paracentesis catheter was inserted and advanced with negative pressure until straw colored fluid was aspirated. The catheter was then connected to the vaccutainer and 4.6 liters of additional ascitic fluid were drained. The catheter was removed and no leaking was noted. Dermabond was placed over the puncture wound. The patient tolerated the procedure well without any immediate complications. Estimated blood loss was 0mL. Anesthesia: local Surgeon: Chitra Mack Was there an stonecutter assistant present: Yes Rn Med Surg: Jeyson Baker Estimated blood loss (cc): 0 Specimen: none Pathology: none sent Condition: stable Disposition: floor
== END 2019-04-15 17:03 | disposition home or self-care (01) | DRG 640 ==
LOC: EMEROOARM 20:11 → ICNU 20:11 → SUATTDRO 22:34 → ICNU 23:22 → 2ANU 04-07 10:32 → SUATTDRO 04-07 11:11
PROVIDERS: ADMIT Internal Medicine Nephrology; ATTEND Internal Medicine

== ENCOUNTER 2019-05-25 15:45 | Inpatient (IN) ==
[2019-05-25] MEDS ORDERED: Naloxone 0.4 MG/ML INJ IVP PRN (17:35)
--- NOTE | 2019-05-25 17:42 | Internal Med History&Physical ---
Date of Encounter: 05/25/19 Time of Encounter: 17:35 Internal Medicine - H&P: HPI Chief complaint: paracentesis Admitted From: Intrahospital Transfer Plans for Post Hospital Care: Home History of present illness: Mr. Snyder is a 33 year old male with pmhx of CHF, cardiomyopathy, liver cirrhosis, ESRD on HD, HTN, HLD came from [facility] for paracenteis. Patient woke up this morning when he noticed he had b/l lower abdominal pain which made him go to ER at [facility]. He did miss his dialysis on friday and has hisotry of non compliance. He had lab work done at [facility] which showed sodium 137, potassium 5.7 , BUNs 69 bicarbonate 24 glucose 94, CBC 7 0.1 hemoglobin 10.1 platelet 145 , INR 1.2 PT 13.8 APTT 38.6 total bilirubin 0.5 . He denied any fever chills, nausea, vomiting or diarrhea. Denies any difficulty breathing. The abdominal pain is on both the sides. He does have this pain with his bilatoral inguinal hernia but this was more than usual. He does make some urine and has SPC catheter. He was interviewed on floor. Denies any chest pain, difficulty breathing. Denies any allergies Past Med Surg Social Fam HX - Past Medical History Medical history: cardiomyopathy, cirrhosis, CHF, dialysis, hyperlipidemia, hypertension, liver disease, renal disease, thyroid disease, venous stasis, other Additional medical history: ESRD w/ T, , SA HD; anemia, hyperparathyroid, inguinal and umbilical hernia, suprapubic cath, hyperkalemia, ascites, pleural effusions, neurogenic bladder, pneumonia, peritonitis, cellulitis, UTIs. Psychiatric history: anxiety, depression - Past Surgical History Surgical History: orthopedic, other, vascular surgery Additional surgical history: suprapubic cath placement. fistula placement left AC. Left arm skin graft - Social History Smoking Status: Current every day smoker Smokeless Tobacco Status: No Alcohol use: none Drug use: none - Family History Mother Adopted: No Living Status: Still Living Hx Family Cardiac Disorders: Yes (Stroke) Hx Family Respiratory Disorders: No Hx Family Cancer: No Hx Family GI Disorders: No Hx Family Endocrine Disorder: Yes (DM) Hx Family Neuromuscular Disorders: No Hx Family Neurologic Disorders: No Hx Family HEENT Disorders: No Hx Family Autoimmune Disorders: No Father Living Status: Hx Family Cardiac Disorders: Yes (CAD) Hx Family Respiratory Disorders: No Hx Family Cancer: No Hx Family GI Disorders: No Hx Family Endocrine Disorder: Yes (Diabetes) Hx Family Neuromuscular Disorders: No Hx Family Neurologic Disorders: No Hx Family HEENT Disorders: No Hx Family Autoimmune Disorders: No Internal Medicine - H&P: Meds No Known Home Drugs 05/25/19 [History] Allergy/AdvReac Type Severity Reaction Status Date / Time No Known Allergies Allergy Verified 03/15/19 09:27 All Systems PM: A 10-system review of systems was performed and is negative for pertinent findi ngs except as documented above in the HPI. - Constitutional Exam: as below - Head Head exam: Present: atraumatic - Respiratory Respiratory exam: Present: CTAB. Absent: accessory muscle use, chest wall tenderness, decreased breath sounds - Cardiovascular Cardiovascular exam: Present: +S2, +S3. Absent: diastolic murmur, systolic murmur - GI/Abdominal GI/Abdominal exam: Present: diminished bowel sounds, hernia (inguinal hernia), soft, no peritoneal signs Additional comments: Had abdominal ditention with fluid thrill. No tenderness on palpation. - Additional comments: Has spc catheter - Neurological Exam Neurological exam: Present: alert, CN II-XII intact Internal Med - H&P Results - Labs CBC & Chem 7: 05/25/19 19:39 - Assessment and Plan (1) Ascites Current Visit: No Status: Chronic Assessment and plan: Had known history of cirrhosis, CHF and ESRD on HD and missed a dialysis likely leading volume overload He is only taking sevelamer, aspirin, metoprolol and lisinopril. Does not appear to be on any diuretics, however makes minimal urine Patient had bedside paracentesis done with 8.5 L~ fluid removed. Will give 100 gm of albumin Will send peritoneal fluid for testing if signs of sbp. Hold antibiotics for now. STrict I/O, fluid restriction and renal diet. Qualifiers: Ascites type: other type Qualified Code(s): R18.8 - Other ascites (2) ESRD (end stage renal disease) on dialysis Current Visit: No Status: Chronic Assessment and plan: Patient missed dialysis on Friday. Will consult Nephrology for dialysis needs. Does not need urgent dialysis if Potassium stable. (3) CHF (congestive heart failure) Current Visit: Yes Status: Acute Assessment and plan: Continue on home aspirin and metoprolol Qualifiers: Heart failure type: systolic Heart failure chronicity: chronic Qualified Code(s): I50.22 - Chronic systolic (congestive) heart failure - Time Spent With Patient Total time spent is greater than 50% in coordination of care (as documented) at patient's floor/unit and/or counseling patient:
[2019-05-25] MEDS: Albumin 25% 25gram/100mL 25 GM/100 ML IV.SOLN IVC SCH ×3 (19:59→23:23)
[2019-05-25 20:17] LABS: RBC,Peritoneal Fluid < 0.002 M/mcL
[2019-05-25 20:20] LABS: Appearance of Peritoneal Fl HAZY (Clear)
[2019-05-25 20:23] LABS: Total Protein,Peritoneal Fluid 3.4 g/dL
[2019-05-25 20:45] LABS: Albumin 3.3 g/dL (3.5-5.7); Albumin/Globulin Ratio 1.2 (1.1-2.2); Globulin 2.7 g/dL (2.4-3.5)
[2019-05-25 20:46] LABS: Calcium 9.5 mg/dL (8.6-10.3); Potassium 5.4 mEq/L (3.5-5.1)
[2019-05-25 21:07] LABS: Basophils,Peritoneal Fluid 0 %; Eosinophils,Peritoneal Fluid 0 %
[2019-05-25] MEDS ORDERED: *HR* Metoprolol 5 MG/5 ML VIAL IVP ONE (21:24)
--- NOTE | 2019-05-25 21:40 | Procedure Note ---
Date of procedure: 05/25/19 Pre-op diagnosis: ascitis Post-op diagnosis: same Procedure: Consent was obtained with patient and risk/benefits discussed. Using ultrasound guidance ideal location for paracentesis was greg on the abdomen. RLQ was preppped and drape to maintain sterility. Using 1% lidocaine local anesthesia was achieved along the tract of planned paracentesis. Small skin incision with 11 blade was made. Paracentesis catheter was advanced gradually until clear dark yellow fluid was returned. About 2.5 L was drained when the catheter had to be reintroduced with different kit for better drainage. Total 8.5 L of fluid was drained. Samples were send for lab analysis and Patient was given albumin infusions. Patient tolerated procedure well. Wound glue was applied at the site of catheter entry. Patient was asked to lay on Lt side of abdomen for [address] Quinten Guerra suprervised the procedure and present during entire procedure. Anesthesia: local Surgeon: Valdo Blue Was there an pier master assistant present: Yes Human Resource Advisor: Quinten Guerra Estimated blood loss (cc): 1 Specimen: ~8.5 Lit Condition: stable Disposition: floor
[2019-05-25] MEDS ORDERED: *HR* HYDROmorphone (PF) 1 MG/ML SYRINGE IVP ONE (22:22)
[2019-05-25 23:26] LABS: Basophils # 0.1 K/mcL (0.0-0.2); Basophils % 0.7 %; Eosinophils # 0.3 K/mcL (0.0-0.6); Eosinophils % 4.1 %; Hematocrit 30.4 % (37.5-50.1); Hemoglobin 9.7 g/dL (12.9-16.9); Immature Granulocytes % 0.3 % (0-4); Lymphocytes # 1.3 K/mcL (0.6-4.6); Lymphocytes % 17.9 %; Mean Corpuscular HGB Conc 31.9 g/dL (31.6-35.5); Mean Corpuscular Hemoglobin 29.2 pg (28.0-33.3); Mean Corpuscular Volume 91.6 fL (83.0-100.0); Mean Platelet Volume 10.5 fL (9.4-12.4); Monocytes # 0.5 K/mcL (0.0-1.3); Monocytes % 6.9 %; Platelet Count 140 K/mcL (140-400); Red Blood Count 3.32 M/mcL (4.19-5.50); Red Cell Distribution Width 14.7 % (11.5-14.5); Segmented Neutrophils % 70.1 %; White Blood Count 7.1 K/mcL (4.3-11.1)
[2019-05-26 00:09] LABS: Albumin 3.5 g/dL (3.5-5.7); Albumin/Globulin Ratio 1.5 (1.1-2.2); Bilirubin,Direct 0.1 mg/dL (0.0-0.2); Bilirubin,Indirect 0.3 mg/dL (0.0-1.2); Bilirubin,Total 0.4 mg/dL (0.3-1.0); Globulin 2.4 g/dL (2.4-3.5); Total Protein 5.9 g/dL (6.4-8.9)
[2019-05-26] MEDS: Albumin 25% 25gram/100mL 25 GM/100 ML IV.SOLN IVC SCH (01:02)
[2019-05-26 04:51] LABS: Basophils # 0.1 K/mcL (0.0-0.2); Eosinophils # 0.3 K/mcL (0.0-0.6); Eosinophils % 5.3 %; Hematocrit 30.9 % (37.5-50.1); Hemoglobin 9.7 g/dL (12.9-16.9); Immature Granulocytes % 0.2 % (0-4); Lymphocytes # 1.4 K/mcL (0.6-4.6); Lymphocytes % 22.5 %; Mean Corpuscular HGB Conc 31.4 g/dL (31.6-35.5); Mean Corpuscular Hemoglobin 29.8 pg (28.0-33.3); Mean Corpuscular Volume 94.8 fL (83.0-100.0); Mean Platelet Volume 10.6 fL (9.4-12.4); Monocytes # 0.6 K/mcL (0.0-1.3); Monocytes % 8.8 %; Neutrophils # 3.9 K/mcL (1.6-8.9); Platelet Count 122 K/mcL (140-400); Red Blood Count 3.26 M/mcL (4.19-5.50); Red Cell Distribution Width 14.8 % (11.5-14.5); Segmented Neutrophils % 62.2 %; White Blood Count 6.3 K/mcL (4.3-11.1)
[2019-05-26 05:04] LABS: Alanine Aminotransferase < 3 Units/L (7-52); Albumin 3.5 g/dL (3.5-5.7); Albumin/Globulin Ratio 1.7 (1.1-2.2); Alkaline Phosphatase 96 Units/L (34-104); Aspartate Amino Transferase 7 Units/L (13-39); BUN/Creatinine Ratio 5 (6-26); Bilirubin,Total 0.4 mg/dL (0.3-1.0); Blood Urea Nitrogen 73 mg/dL (6-20); Calcium 9.3 mg/dL (8.6-10.3); Carbon Dioxide 20 mEq/L (23-29); Chloride 101 mEq/L (98-107); Globulin 2.1 g/dL (2.4-3.5); Glucose 95 mg/dL (70-105); Osmolality,Calculated 301 (280-300); Potassium 5.3 mEq/L (3.5-5.1); Sodium 135 mEq/L (136-145); Total Protein 5.6 g/dL (6.4-8.9); eGFR For African Americans 5 (> 60); eGFR For Non-African Americans 4 (> 60)
[2019-05-26] MEDS ORDERED: 0.9 % Sodium Chloride 250 ML IVC PRN (07:01)
[2019-05-26] MEDS ORDERED: 0.9 % Sodium Chloride 1,000 ML PRIME SCH (07:15)
[2019-05-26] MEDS: traMADol 50 MG TABLET PO PRN ×3 (09:28→23:24)
--- NOTE | 2019-05-26 11:20 | Nephrology Consult Note ---
Date of Encounter: 05/26/19 Time of Encounter: 11:15 Assessment and Plan (1) ESRD (end stage renal disease) on dialysis Current Visit: Yes Status: Acute Current regimen is MWF at [place]. HD in progress for today 4/5 hours 4-5 kgs. Renal diet Renal vitamins Strict I/O Avoid nephrotoxins and renal dose all medications. Will order additional UF or HD as needed. Nodule noted above fistula, US ordered. (2) Hyperkalemia Current Visit: Yes Status: Acute K is 5.3, will correct with HD. K is chronically elevated despite HD. Renal diet advised. (3) Ascites Current Visit: Yes Status: Acute Per primary. Qualifiers: Qualified Code(s): R18.8 - Other ascites (4) Noncompliance Current Visit: Yes Status: Acute Grossly non-compliant with fluid gains and hemodialysis sessions. Encouraged compliance. History of Present Illness - Reason for Consult Consult date: 05/26/19 end stage renal disease Requesting physician: Ralph Snyder - Chief Complaint shortness of breath, missed HD session - History of Present Illness Mr. Snyder is a 33 year old male who presented from [facility] with edema, difficulty in breathing. PMH: cardiomyopathy, cirrhosis, CHF, hyperlipidemia, hypertension, and ESRD. ESRD regimen is MWF in [place], he is well known to the service. He is grossly non compliant, missed HD session Friday, last was Friday on 05/21/19. He claims he missed Friday due to pain in right arm above the fistula. Admits to shortness of breath. Denies chest pain, nausea, vomiting, or diarrhea. He has chronic ascites and has outpatient orders for PRN paracentesis. His last was last night, removed 8.5 liters. He recently moved to [place] in with his brother in law's parents and children. He does not have a room, he sleeps in a recliner. Denies etoh or illicit drug use. Uses tobacco daily, decline nicotine patch. No FH of CKD or HD. Past Med Surg Social Fam HX - Past Medical History Medical history: cardiomyopathy, cirrhosis, CHF, dialysis, hyperlipidemia, hype rtension, liver disease, renal disease, thyroid disease, venous stasis, other Additional medical history: ESRD w/ T, TH, SA HD; anemia, hyperparathyroid, inguinal and umbilical hernia, suprapubic cath, hyperkalemia, ascites, pleural effusions, neurogenic bladder, pneumonia, peritonitis, cellulitis, UTIs. Psychiatric history: anxiety, depression - Past Surgical History Surgical History: orthopedic, other, vascular surgery Additional surgical history: suprapubic cath placement. fistula placement left AC. Left arm skin graft - Social History Smoking Status: Current every day smoker Smokeless Tobacco Status: No Alcohol use: none Drug use: none - Family History Mother Adopted: No Living Status: Still Living Hx Family Cardiac Disorders: Yes (Stroke) Hx Family Respiratory Disorders: No Hx Family Cancer: No Hx Family GI Disorders: No Hx Family Endocrine Disorder: Yes (DM) Hx Family Neuromuscular Disorders: No Hx Family Neurologic Disorders: No Hx Family HEENT Disorders: No Hx Family Autoimmune Disorders: No Father Living Status: Hx Family Cardiac Disorders: Yes (CAD) Hx Family Respiratory Disorders: No Hx Family Cancer: No Hx Family GI Disorders: No Hx Family Endocrine Disorder: Yes (Diabetes) Hx Family Neuromuscular Disorders: No Hx Family Neurologic Disorders: No Hx Family HEENT Disorders: No Hx Family Autoimmune Disorders: No Medications and Allergies No Known Home Drugs 05/25/19 [History] Allergy/AdvReac Type Severity Reaction Status Date / Time No Known Allergies Allergy Verified 03/15/19 09:27 Review of Systems All Systems review (narrative): The remainder of the systems are negative. Constitutional: fatigue, no chills, no fever(s) Cardiovascular: dyspnea, dyspnea on exertion, edema, no chest pain Respiratory: cough, dyspnea, no hemoptysis, no wheezing Gastrointestinal: change in bowel habits, diarrhea, nausea, vomiting Genitourinary Male: no hematuria Exam - Vital Signs Vital signs: Initial Vital Signs Temp Pulse Resp BP Pulse Ox 98.0 F 82 18 167/108 96 05/25/19 17:36 05/25/19 17:36 05/25/19 17:36 05/25/19 17:36 05/25/19 17:36 Vital Signs - Last 8 Hours Temp Pulse Resp BP Pulse Ox 05/26/19 11:00 159/104 05/26/19 10:45 171/109 05/26/19 10:30 161/112 05/26/19 10:15 98.9 F 18 162/109 05/26/19 08:01 97.7 F 97 16 160/103 98 05/26/19 04:21 97.5 F L 92 15 147/105 99 Intake and Output 05/25/19 05/26/19 05/26/19 23:59 07:59 15:59 Intake Total 320 / 320 440 / 1040 600 / 1040 Balance 320 / 320 440 / 1040 600 / 1040 Intake: IV Fluids 200 / 200 200 / 200 Flexbumin 25 gm In 100 ml @ 60 200 / 200 200 / 200 mls/hr IVC .[id number] [facility] Rx#: [id number] Oral 120 / 120 240 / 240 0 / 240 Intake, Rinseback and Flushes 600 / 600 Other: Weight 141.158 kg Hemodialysis Net Fluid Removed 1014 (mL) - General Appearance General appearance: well-developed, well-nourished, obese EENT: ATNC, hearing intact, vision intact Neck: supple Respiratory: clear Cardiology: edema (Abdomen noted to having pitting edema.), normal S1, normal S2 - Dialysis Access Dialysis Vascular Access: Arteriovenous Fistula thrill: Yes bruit: Yes Additional Comments: Large painful nodule noted above fistula, no drainage, no erythema noted. Gastrointestinal: normoactive bowel sounds, no tenderness, no guarding Integumentary: no rash, warm and dry Neurologic: alert and oriented x3 Musculoskeletal: no deformities, no erythema Psychiatric: mood/affect appropriate, cooperative Results - Lab Results 05/26/19 04:07 05/26/19 04:07 Most recent lab results 05/26/19 04:07 Calcium 9.3 Consult Discharge Plan - Plan Referrals: NONE,PCP [Primary Care Provider] -
--- NOTE | 2019-05-26 11:28 | Internal Med Progress Note ---
Hospitalist Progress Note - Encounter Date of Encounter: 05/26/19 Time of Encounter: 11:28 - Subjective Interval History: Patient seen and examined this morning at bedside. No acute overnight events. Patient already has left sided abdominal pain today on the left lower quadrant. Denies any fevers chills nausea vomiting or diarrhea. - Exam Vitals: Temp Pulse Resp BP Pulse Ox 98.9 F 97 18 159/104 98 05/26/19 10:15 05/26/19 08:01 05/26/19 10:15 05/26/19 11:00 05/26/19 08:01 Exam: General: In no acute distress. obese Respiratory exam: diminished air entry b/l, distant sounds. no accessory muscle use, rales, rhonchi, wheezes Cardiovascular exam: RRR, +S1, +S2. no murmur, gallop, rubs. GI/Abdominal exam: Distended, normal bowel sounds, soft, LLQ tenderness on deep palpation. Extremities exam: 2+ pedal edema, no calf tenderness, LUE fistula with thrill. Mild erythema noted over it. No induration. Neurological exam: CN II-XII intact, AO X3, no focal deficits. Skin exam: chronic dermatitis changes in b/l LE - Assessment and Plan (1) Ascites Current Visit: No Status: Chronic (2) ESRD (end stage renal disease) on dialysis Current Visit: No Status: Chronic (3) CHF (congestive heart failure) Current Visit: Yes Status: Acute - Summary of Assessment and Plan Summary of Assessment and Plan: Assessment Acute Ascitis Volume overload Missed dialysis Abdominal pain mild hyperkalemia Chronic Chronic suprapubic hopkins Cirrhosis ESRD on HD sytolic CHF Chronic anemia Cardiomyopathy, EF 35-40% Plan - s/p 8.5 L of ascitic fluid removed which appears transudative however has lot of protein other cells. s/p albumin infusion after. Awaiting pathology and culture. 13 PMN, so less likely to have peritonitis as cause of his pain. Had known history of cirrhosis, systolic CHF and ESRD on HD. Has history of being non compliant. Nephrology following for dialysis. To get HD today. - Strict I/O, fluid restriction and renal diet. - anemia chronic in nature. Appears to be stable. - Discussed with nephrology. Will likely be dialyzed next few days consecutively. - c/w on home aspirin, lisinopril and metoprolol Internal Medicine: Result - Labs CBC & Chem 7: 05/26/19 04:07 05/26/19 04:07 Labs: Short CBC 05/25/19 05/26/19 Range/Units 22:44 04:07 WBC 7.1 6.3 (4.3-11.1) K/mcL Hgb 9.7 L 9.7 L (12.9-16.9) g/dL Hct 30.4 L 30.9 L (37.5-50.1) % Plt Count 140 122 L (140-400) K/mcL Neutrophils # 5.0 3.9 (1.6-8.9) K/mcL BMP 05/25/19 05/26/19 19:39 04:07 Sodium 137 135 L Potassium 5.4 H 5.3 H Chloride 100 101 Carbon Dioxide 22 L 20 L BUN 70 H 73 H Creatinine 13.38 H 14.07 H Glucose 85 95 Calcium 9.5 9.3 Liver Function 05/25/19 05/25/19 05/26/19 Range/Units 19:39 22:44 04:07 Total Bilirubin 0.4 0.4 (0.3-1.0) mg/dL Direct Bilirubin 0.1 (0.0-0.2) mg/dL AST 8 L 7 L (13-39) Units/L ALT 4 L < 3 L (7-52) Units/L Alkaline Phosphatase 109 H 96 (34-104) Units/L Albumin 3.3 L 3.5 3.5 (3.5-5.7) g/dL Consult Discharge Plan - Plan Referrals: NONE,PCP [Primary Care Provider] - (1) Ascites Qualifiers: Ascites type: other type Qualified Code(s): R18.8 - Other ascites (3) CHF (congestive heart failure) Qualifiers: Heart failure type: systolic Heart failure chronicity: chronic Qualified Code(s): I50.22 - Chronic systolic (congestive) heart failure
[2019-05-26] MEDS: Metoprolol XL (24 HR) Succ 50 MG TAB.ER.24H PO SCH ×2 (16:14→20:24)
[2019-05-27 06:27] LABS: Calcium 9.2 mg/dL (8.6-10.3)
[2019-05-27] MEDS: traMADol 50 MG TABLET PO PRN ×3 (06:30→20:35)
[2019-05-27] MEDS ORDERED: 0.9 % Sodium Chloride 250 ML IVC PRN (07:01)
[2019-05-27] MEDS: Aspirin Enteric Coated 81 MG Tablet PO SCH (07:37)
--- NOTE | 2019-05-27 07:43 | Internal Med Progress Note ---
Hospitalist Progress Note - Encounter Date of Encounter: 05/27/19 Time of Encounter: 07:41 - Subjective Interval History: Patient seen and examined this morning at bedside. No acute overnight events. Complaining of left-sided abdominal pain. No fever or chills nausea vomiting or diarrhea. Denies any complaints of chest pain, palpitations or lightheadedness dizziness or shortness of breath. - Exam Vitals: Temp Pulse Resp BP Pulse Ox 97.7 F 84 18 139/87 97 05/27/19 06:48 05/27/19 06:48 05/27/19 06:48 05/27/19 06:48 05/27/19 06:48 Exam: General: In no acute distress. obese Respiratory exam: diminished air entry b/l, distant sounds. no accessory muscle use, rales, rhonchi, wheezes Cardiovascular exam: RRR, +S1, +S2. no murmur, gallop, rubs. GI/Abdominal exam: Distended, soft, LLQ tenderness on deep palpation. No peritoneal signs Extremities exam: 1+ pedal edema, no calf tenderness, LUE fistula with thrill. mildly red, Neurological exam: CN II-XII intact, AO X3, no focal deficits. Skin exam: chronic dermatitis changes in b/l LE - Assessment and Plan (1) Ascites Current Visit: No Status: Chronic (2) ESRD (end stage renal disease) on dialysis Current Visit: No Status: Chronic (3) CHF (congestive heart failure) Current Visit: Yes Status: Acute - Summary of Assessment and Plan Summary of Assessment and Plan: Assessment Acute Ascitis Volume overload Missed dialysis Abdominal pain mild hyperkalemia-resolved Chronic Chronic suprapubic hopkins Cirrhosis ESRD on HD sytolic CHF Chronic anemia Cardiomyopathy, EF 35-40% Plan - s/p 8.5 L of ascitic fluid removed which appears transudative however has lot of protein and other cells. s/p albumin infusion after. pathology negative for malignancy showing mesothelial cells, macrophages and lymphocytes. f/u culture. less likely to have peritonitis as cause of his pain. Nephrology following for dialysis. Plan to continue HD for more volume control. - Unclear LLQ pain. Possibly related to ascitis. CT otherwise unremakable except chronic changes of cirrhosis, portal HTN, splenomegaly and ascitis. Will plan to another paracentesis. - Strict I/O, fluid restriction and renal diet. - anemia chronic in nature. Appears to be stable. - Discussed with nephrology. Will likely be dialyzed next few days consecutively. - c/w on home aspirin, lisinopril and metoprolol Internal Medicine: Result - Labs CBC & Chem 7: 05/26/19 04:07 05/27/19 04:50 Labs: BMP 05/27/19 04:50 Sodium 132 L Potassium 5.0 Chloride 97 L Carbon Dioxide 24 BUN 47 H Creatinine 9.91 H Glucose 104 Calcium 9.2 - Impressions Impressions Extremity Ultrasound 05/26/19 14:30 IMPRESSION: Limited ultrasound of the left upper arm demonstrates a prominent pseudoaneurysm overlying the dialysis graft with pulsatile flow. D/ / Bradley Woods MD / Bradley Woods MD Interpreting Provider: Bradley Woods MD Abdomen/Pelvis CT 05/26/19 16:17 IMPRESSION: Cirrhotic morphology of the liver with evidence of portal venous hypertension including venous collaterals, splenomegaly, abdominopelvic ascites and mesenteric edema. D/ / Olimpia Mack Cha, MD / Olimpia Mack Cha, MD Interpreting Provider: Olimpia Mack Cha, MD Consult Discharge Plan - Plan Referrals: NONE,PCP [Primary Care Provider] - (1) Ascites Qualifiers: Ascites type: other type Qualified Code(s): R18.8 - Other ascites (3) CHF (congestive heart failure) Qualifiers: Heart failure type: systolic Heart failure chronicity: chronic Qualified Code(s): I50.22 - Chronic systolic (congestive) heart failure
--- NOTE | 2019-05-27 11:01 | Nephrology Progress Note ---
Date of Encounter: 05/27/19 Time of Encounter: 11:03 - Assessment and Plan (1) ESRD (end stage renal disease) on dialysis Current Visit: Yes Status: Acute Current regimen is MWF at [facility]. HD in progress for today 4/5 hours 4-5 kgs. Renal diet Renal vitamins Strict I/O Avoid nephrotoxins and renal dose all medications. Will order additional UF or HD as needed. Limited ultrasound of the left upper arm demonstrates a prominent pseudoaneurysm overlying the dialysis graft with pulsatile flow. Spoke with Dr. Goldsmith, will continue to monitor. (2) Hyperkalemia Current Visit: Yes Status: Acute K is 5, stable. K is chronically elevated despite HD. Renal diet advised. (3) Ascites Current Visit: Yes Status: Acute Per primary. Qualifiers: Qualified Code(s): R18.8 - Other ascites (4) Noncompliance Current Visit: Yes Status: Acute Grossly non-compliant with fluid gains and hemodialysis sessions. Encouraged compliance. Subjective Principal diagnosis: missed HD Interval history: Pt seen and examined in HD, tolerating well. His chest pain or shortness of breath. Denies nausea, vomiting or diarrhea. Objective - Vital Signs Vital signs: Vital Signs Temp Pulse Resp BP Pulse Ox 05/27/19 09:45 133/80 05/27/19 09:30 125/82 05/27/19 09:15 116/58 05/27/19 09:00 130/70 05/27/19 08:45 98.3 F 18 157/94 05/27/19 06:48 97.7 F 84 18 139/87 97 05/27/19 03:30 97.8 F 86 15 136/76 96 05/26/19 23:51 98.3 F 90 16 143/80 96 05/26/19 20:31 98.5 F 96 18 161/110 97 05/26/19 15:15 97.6 F 18 163/90 05/26/19 14:45 145/89 05/26/19 14:30 138/92 05/26/19 14:15 142/85 05/26/19 14:00 153/91 05/26/19 13:45 160/69 05/26/19 13:30 149/93 05/26/19 13:15 146/91 05/26/19 13:00 149/91 05/26/19 12:45 129/75 05/26/19 12:30 131/84 05/26/19 12:15 148/97 05/26/19 12:00 151/107 05/26/19 11:45 153/95 05/26/19 11:30 154/89 05/26/19 11:15 153/104 05/26/19 11:00 159/104 Intake and Output 05/26/19 05/27/19 05/27/19 23:59 07:59 15:59 Intake Total 840 / 840 Balance 840 / 840 Intake: Oral 240 / 240 Intake, Rinseback and Flushes 600 / 600 Other: Meal Breakfast Percent of Meal Consumed 100% Weight 139.9 kg Hemodialysis Net Fluid Removed 1531 (mL) Patient Weight 05/27/19 23:59 Weight 139.9 kg - General Appearance General appearance: Present: well-developed, well-nourished EENT: Present: ATNC, hearing intact, vision intact Neck: Present: supple Respiratory: Present: clear Cardiology: Present: edema (Abdomen noted to be distended and pitting edema.), normal S1, normal S2 Dialysis Vascular Access: Arteriovenous Fistula thrill: Yes bruit: Yes Gastrointestinal: Present: normoactive bowel sounds, no tenderness, no guarding Integumentary: Present: no rash, warm and dry Neurologic: Present: alert and oriented x3 Musculoskeletal: Present: no deformities, no erythema Psychiatric: Present: mood/affect appropriate, cooperative - Lab 05/26/19 04:07 05/27/19 04:50 Most recent lab results 05/27/19 04:50 Calcium 9.2 Consult Discharge Plan - Plan Referrals: NONE,PCP [Primary Care Provider] -
[2019-05-27] MEDS: Metoprolol XL (24 HR) Succ 50 MG TAB.ER.24H PO SCH (13:37)
[2019-05-28] MEDS: traMADol 50 MG TABLET PO PRN ×2 (03:08→09:02)
[2019-05-28 06:26] LABS: INR 1.2; Prothrombin Time 13.4 Seconds (9.4-12.1)
[2019-05-28 06:31] LABS: Albumin 3.5 g/dL (3.5-5.7); Calcium 9.7 mg/dL (8.6-10.3); Potassium 5.6 mEq/L (3.5-5.1)
[2019-05-28] MEDS: Aspirin Enteric Coated 81 MG Tablet PO SCH (08:27)
--- NOTE | 2019-05-28 09:48 | Nephrology Progress Note ---
Date of Encounter: 05/28/19 Time of Encounter: 09:47 - Assessment and Plan (1) ESRD (end stage renal disease) on dialysis Status: Acute Current regimen is MWF at [facility]. HD in progress for today Renal diet Renal vitamins Strict I/O Avoid nephrotoxins and renal dose all medications. Will order additional UF or HD as needed. The patient was seen while on dialysis (2) Hyperkalemia Status: Acute (3) Ascites Status: Acute Qualifiers: Qualified Code(s): R18.8 - Other ascites (4) Noncompliance Status: Acute Subjective Principal diagnosis: missed HD Interval history: The patient was seen well on dialysis. He has no new complaints. Objective - Vital Signs Vital signs: Vital Signs Temp Pulse Resp BP Pulse Ox 05/28/19 06:59 97.7 F 73 19 153/92 94 05/28/19 04:06 97.8 F 72 18 142/86 98 05/28/19 00:24 97.9 F 64 17 130/93 99 05/27/19 20:10 97.9 F 82 17 135/85 98 05/27/19 16:48 98.0 F 82 18 167/99 98 05/27/19 13:02 98 F 18 141/76 05/27/19 12:45 124/84 05/27/19 12:30 138/90 05/27/19 12:15 137/87 05/27/19 12:00 136/78 05/27/19 11:45 131/84 05/27/19 11:30 123/108 05/27/19 11:15 120/47 05/27/19 11:00 129/85 05/27/19 10:45 135/81 05/27/19 10:30 132/76 05/27/19 10:15 124/70 05/27/19 10:00 142/79 Intake and Output 05/27/19 05/28/19 05/28/19 23:59 07:59 15:59 Intake Total 480 / 1320 240 / 240 Balance 480 / -4780 240 / 240 Intake: Oral 480 / 720 240 / 240 Other: Meal Dinner Breakfast Percent of Meal Consumed 100% 100% Weight 140 kg Patient Weight 05/28/19 23:59 Weight 140 kg - General Appearance General appearance: Present: well-developed, well-nourished EENT: Present: ATNC Cardiology: Present: regular rate - Lab 05/26/19 04:07 05/28/19 05:42 Most recent lab results 05/28/19 05:42 Calcium 9.7 Consult Discharge Plan - Plan Referrals: NONE,PCP [Primary Care Provider] - Prescriptions: Aspirin Enteric Coated [Aspirin EC] 81 mg PO DAILY 30 Days #30 tablet.dr Prescription Printed Sevelamer [Renvela] 2,400 mg PO TIDWM 30 Days #90 tablet Prescription Printed Metoprolol XL (24 HR) Succ [Toprol Xl] 100 mg PO DAILY 30 Days #30 tab.er.24h Prescription Printed Lisinopril [Zestril] 10 mg PO DAILY 30 Days #30 tablet Prescription Printed
--- NOTE | 2019-05-28 10:37 | Discharge Summary ---
- NOTES TO OUTPATIENT PROVIDER Notes to Outpatient Provider: Patient will need close monitoring of his volume status to prevent further readmissions. Will need close follow-up with nephrology Orders not resulted at time of discharge: Pending orders 05/25/19 19:00 Culture,Body Fl,w Gram Stain [RM] Stat 05/28/19 06:01 Cell Cnt w Dif, Peritoneal Fl [BF] Routine Glucose,Peritoneal Fluid [BF] Routine LDH,Peritoneal Fluid [BF] Routine Total Protein,Peritoneal Fluid [BF] Routine 05/28/19 06:02 Albumin,Body Fluid Routine Date of Encounter: 05/28/19 Time of Encounter: 10:37 - Discharge Diagnosis (1) Ascites Priority: Primary Status: Chronic Qualifiers: Ascites type: other type Qualified Code(s): R18.8 - Other ascites (2) ESRD (end stage renal disease) on dialysis Priority: Secondary Status: Chronic (3) CHF (congestive heart failure) Priority: Primary Status: Acute Qualifiers: Heart failure type: systolic Heart failure chronicity: chronic Qualified Code(s): I50.22 - Chronic systolic (congestive) heart failure (4) Noncompliance Priority: Primary Status: Acute (5) Volume overload Priority: Primary Status: Acute Qualifiers: Hypervolemia type: unspecified Qualified Code(s): E87.70 - Fluid overload, unspecified Hospital course: Mr. Snyder is a 34 year old male with past medical history of CHF, stays relatedly she is on dialysis, hypertension, hyperlipidemia who is noncompliant with his dialysis came in with complain of abdominal distention and abdominal pain. Patient was found to have an volume overload significant ascites. He said he missed a dialysis recently. Says he is compliant with his medication however has not filled his medication for long time per pharmacist. Patient was hospitalized for volume management with dialysis as well as paracentesis. Patient had to paracentesis and in total removing about ~13 lit. Patient had mi ld swelling on his arm near his fistula. Patient had limited ultrasound which showed pseudoaneurysm. No intervention was needed. Nephrology at this time this patient without any significant skin thickening or bleeding. Patient was dialyzed on 3 consecutive days pneumonia based 12 L to ultrafiltration. Patient did complain of some on and off abdominal pain more on the left. CT abdomen/pelvis was otherwise unremarkable. Patient is otherwise stable to be discharged to follow with outpatient dialysis. Patient was given a prescription for his medication that he was supposed to take and was asked to be compliant with it. Discharge discussed with: patient, nurse, clinical documentation consultant - Time Spent with Patient Total time spent providing and/or coordinating discharge services: Time spent: Greater than 30 minutes (40) - Discharge Medications Prescriptions: New Aspirin Enteric Coated [Aspirin EC] 81 mg PO DAILY 30 Days #30 tablet. Sevelamer [Renvela] 2,400 mg PO TIDWM 30 Days #90 tablet Metoprolol XL (24 HR) Succ [Toprol Xl] 100 mg PO DAILY 30 Days #30 tab.er.24h Lisinopril [Zestril] 10 mg PO DAILY 30 Days #30 tablet Home Medications: Aspirin Enteric Coated [Aspirin EC] 81 mg PO DAILY 30 Days #30 tablet. 05/28/19 [Rx] Lisinopril [Zestril] 10 mg PO DAILY 30 Days #30 tablet 05/28/19 [Rx] Metoprolol XL (24 HR) Succ [Toprol Xl] 100 mg PO DAILY 30 Days #30 tab.er.24h 05/28/19 [Rx] Sevelamer [Renvela] 2,400 mg PO TIDWM 30 Days #90 tablet 05/28/19 [Rx] Allergies/Adverse Reactions: Allergy/AdvReac Type Severity Reaction Status Date / Time No Known Allergies Allergy Verified 03/15/19 09:27 Date of admission: 05/27/19 11:36 Primary care physician: PCP NONE Consults: 05/25/19 19:19 Consult to Nephrology [CONS] Routine Consulting Provider: [facility] Amelia/STEPH/JEANETTE/NICOLASA Reason for Consult: dialysis needs Call Completed: No 05/26/19 07:15 Consult to Dialysis [CONS] [facility] 05/27/19 07:15 Consult to Dialysis [CONS] ONCE 05/28/19 07:15 Consult to Dialysis [CONS] [facility] Discharging clinician: Valdo Blue - Constitutional Vitals: Temp Pulse Resp BP Pulse Ox 97.7 F 73 19 153/92 94 05/28/19 06:59 05/28/19 06:59 05/28/19 06:59 05/28/19 06:59 05/28/19 06:59 Exam: General: In no acute distress. obese Respiratory exam: CTAB, no accessory muscle use, rales, rhonchi, wheezes Cardiovascular exam: RRR, +S1, +S2. no murmur, gallop, rubs. GI/Abdominal exam: Distended, soft, No peritoneal signs Extremities exam: 1+ pedal edema, no calf tenderness, LUE fistula with thrill. mildly red, Neurological exam: CN II-XII intact, AO X3, no focal deficits. Skin exam: chronic dermatitis changes in b/l LE - Patient Status Disposition: Home, Self-Care - Discharge Instructions Follow Up With: NONE,PCP [Primary Care Provider] -
[2019-05-28 13:21] LABS: Total Protein,Peritoneal Fluid 3.9 g/dL
[2019-05-28] MEDS ORDERED: FLU Vac QV 19-20 (6Month+)/PF 0.5 ML SYRINGE IM ONE (14:22)
[2019-05-28 14:38] LABS: RBC,Peritoneal Fluid < 0.002 M/mcL
[2019-05-28] MEDS: Metoprolol XL (24 HR) Succ 50 MG TAB.ER.24H PO SCH (15:40)
[2019-05-28 15:51] LABS: Appearance of Peritoneal Fl CLEAR (Clear)
[2019-05-28 15:54] VITALS: BP 122/73
[2019-05-28 16:45] LABS: Basophils,Peritoneal Fluid 0 %
[2019-05-31 17:06] LABS: Fluid Source for Albumin ASCITES/PERITON
== END 2019-05-28 17:35 | disposition home or self-care (01) | DRG 947 ==
LOC: 2ANU → SUATTDRO 17:21
PROVIDERS: ADMIT Internal Medicine; ATTEND Internal Medicine

== ENCOUNTER 2019-08-23 02:19 | Observation (INO) ==
[2019-08-23] MEDS ORDERED: Naloxone 0.4 MG/ML INJ IVP PRN (05:18)
[2019-08-23] MEDS ORDERED: Ipratropium/Albuterol Neb 3 ML IH PRN (05:23)
[2019-08-23 06:07] LABS: Basophils # 0.1 K/mcL (0.0-0.2); Basophils % 1.1 %; Eosinophils # 0.3 K/mcL (0.0-0.6); Eosinophils % 4.4 %; Hematocrit 36.3 % (37.5-50.1); Hemoglobin 11.3 g/dL (12.9-16.9); Immature Granulocytes % 0.3 % (0-4); Lymphocytes # 1.3 K/mcL (0.6-4.6); Lymphocytes % 18.3 %; Mean Corpuscular HGB Conc 31.1 g/dL (31.6-35.5); Mean Corpuscular Hemoglobin 29.3 pg (28.0-33.3); Monocytes # 0.6 K/mcL (0.0-1.3); Monocytes % 8.1 %; Platelet Count 201 K/mcL (140-400); Red Blood Count 3.86 M/mcL (4.19-5.50); Red Cell Distribution Width 14.1 % (11.5-14.5); Segmented Neutrophils % 67.8 %; White Blood Count 7.3 K/mcL (4.3-11.1)
[2019-08-23 06:08] LABS: INR 1.2; Prothrombin Time 13.5 Seconds (9.4-12.1)
[2019-08-23 06:35] LABS: Troponin I 0.05 ng/mL (< 0.04)
[2019-08-23 06:40] LABS: Albumin 3.5 g/dL (3.5-5.7); Albumin/Globulin Ratio 1.3 (1.1-2.2); Bilirubin,Total 0.4 mg/dL (0.3-1.0); Calcium 9.8 mg/dL (8.6-10.3); Globulin 2.8 g/dL (2.4-3.5); Magnesium 2.2 mg/dL (1.6-2.6); Phosphorous 10.8 mg/dL (2.7-4.5); Potassium 5.4 mEq/L (3.5-5.1); Total Protein 6.3 g/dL (6.4-8.9)
[2019-08-23] MEDS: Nicotine 14 MG PATCH.TD24 TD SCH (08:33)
[2019-08-23] MEDS: Metoprolol XL (24 HR) Succ 50 MG TAB.ER.24H PO SCH (08:33)
[2019-08-23] MEDS: Aspirin Enteric Coated 81 MG Tablet PO SCH (08:33)
[2019-08-23] MEDS ORDERED: *HR* Heparin 10,000 UNIT/10 ML VIAL IV PRN (09:33)
[2019-08-23] MEDS ORDERED: 0.9 % Sodium Chloride 250 ML IVC PRN (09:33)
[2019-08-23] MEDS ORDERED: 0.9 % Sodium Chloride 1,000 ML PRIME SCH (09:45)
[2019-08-23] MEDS: *HR* Heparin 5,000 UNIT/ML VIAL SQ SCH ×2 (15:18→20:00)
[2019-08-23] MEDS ORDERED: Perflutren Lipid Microsphere 1.3 ML in 0.9 % Sodium Chloride 8.7 ML IVP ONE (15:23)
[2019-08-24] MEDS: *HR* Heparin 5,000 UNIT/ML VIAL SQ SCH ×3 (06:16→23:32)
[2019-08-24 08:27] LABS: Hematocrit 34.7 % (37.5-50.1); Hemoglobin 10.9 g/dL (12.9-16.9); Mean Corpuscular HGB Conc 31.4 g/dL (31.6-35.5); Mean Corpuscular Hemoglobin 29.5 pg (28.0-33.3); Mean Platelet Volume 10.3 fL (9.4-12.4); Platelet Count 168 K/mcL (140-400); Red Blood Count 3.69 M/mcL (4.19-5.50); Red Cell Distribution Width 14.2 % (11.5-14.5); White Blood Count 6.4 K/mcL (4.3-11.1)
[2019-08-24] MEDS ORDERED: 0.9 % Sodium Chloride 250 ML IVC PRN (08:39)
[2019-08-24 08:44] LABS: Calcium 9.4 mg/dL (8.6-10.3); Potassium 5.6 mEq/L (3.5-5.1)
[2019-08-24] MEDS: Aspirin Enteric Coated 81 MG Tablet PO SCH (11:46)
[2019-08-24] MEDS: Nicotine 14 MG PATCH.TD24 TD SCH (11:47)
[2019-08-24] MEDS: Albumin 25% 25gram/100mL 25 GM/100 ML IV.SOLN IVPB SCH ×3 (11:47→16:02)
[2019-08-24] MEDS ORDERED: Albumin 25% 25gram/100mL 25 GM/100 ML IV.SOLN IVPB SCH (16:00)
[2019-08-24] MEDS: Metoprolol XL (24 HR) Succ 50 MG TAB.ER.24H PO SCH (16:04)
[2019-08-25] MEDS: *HR* Heparin 5,000 UNIT/ML VIAL SQ SCH ×2 (02:55→13:34)
[2019-08-25 05:03] LABS: Hematocrit 33.6 % (37.5-50.1); Hemoglobin 10.8 g/dL (12.9-16.9); Mean Corpuscular HGB Conc 32.1 g/dL (31.6-35.5); Mean Corpuscular Hemoglobin 29.5 pg (28.0-33.3); Mean Corpuscular Volume 91.8 fL (83.0-100.0); Mean Platelet Volume 10.5 fL (9.4-12.4); Platelet Count 159 K/mcL (140-400); Red Blood Count 3.66 M/mcL (4.19-5.50); Red Cell Distribution Width 14.1 % (11.5-14.5); White Blood Count 6.4 K/mcL (4.3-11.1)
[2019-08-25 05:27] LABS: Calcium 9.8 mg/dL (8.6-10.3); Magnesium 2.1 mg/dL (1.6-2.6); Phosphorous 10.1 mg/dL (2.7-4.5); Potassium 5.8 mEq/L (3.5-5.1)
[2019-08-25] MEDS ORDERED: *HR* Heparin 10,000 UNIT/10 ML VIAL IV PRN (07:20)
[2019-08-25] MEDS ORDERED: 0.9 % Sodium Chloride 250 ML IVC PRN (07:20)
[2019-08-25] MEDS ORDERED: 0.9 % Sodium Chloride 1,000 ML PRIME SCH (07:30)
[2019-08-25] MEDS: Aspirin Enteric Coated 81 MG Tablet PO SCH (08:02)
[2019-08-25] MEDS: Metoprolol XL (24 HR) Succ 50 MG TAB.ER.24H PO SCH (08:06)
[2019-08-25] MEDS: Nicotine 14 MG PATCH.TD24 TD SCH (08:06)
[2019-08-25 13:40] VITALS: BP 150/92
== END 2019-08-25 17:23 | disposition home or self-care (01) ==
LOC: 2ANU → SUATTDRO 04:14
PROVIDERS: ADMIT Internal Medicine; ATTEND Internal Medicine

== ENCOUNTER 2019-09-18 14:51 | Inpatient (IN) ==
[2019-09-18] MEDS ORDERED: Ondansetron ODT 4 MG TAB.RAPDIS SL PRN (17:26)
[2019-09-18] MEDS ORDERED: Naloxone 0.4 MG/ML INJ IVP PRN (17:26)
[2019-09-18] MEDS ORDERED: Nicotine 14 MG PATCH.TD24 TD PRN (17:30)
[2019-09-18] MEDS ORDERED: *HR* OxyCODONE Immed Rel 5 MG TABLET PO PRN (17:55)
[2019-09-18] MEDS: *HR* OxyCODONE Immed Rel 5 MG TABLET PO PRN (20:09)
[2019-09-18] MEDS ORDERED: *HR* Metoprolol 5 MG/5 ML VIAL IVP ONE (23:31)
[2019-09-19] MEDS ORDERED: *HR* Labetalol 20 MG/4 ML SYRINGE IVP ONE ×2 (00:53→03:35)
[2019-09-19] MEDS: *HR* OxyCODONE Immed Rel 5 MG TABLET PO PRN ×3 (04:57→21:24)
[2019-09-19] MEDS: Acetaminophen 325 MG TABLET PO PRN ×2 (06:59→23:54)
[2019-09-19] MEDS: Aspirin Enteric Coated 81 MG Tablet PO SCH (07:58)
[2019-09-19] MEDS: Metoprolol XL (24 HR) Succ 50 MG TAB.ER.24H PO SCH (07:58)
[2019-09-19] MEDS ORDERED: 0.9 % Sodium Chloride 250 ML IVC PRN (09:01)
[2019-09-19 09:10] LABS: Hematocrit 36.9 % (37.5-50.1); Hemoglobin 11.7 g/dL (12.9-16.9); Mean Corpuscular HGB Conc 31.7 g/dL (31.6-35.5); Mean Corpuscular Hemoglobin 28.5 pg (28.0-33.3); Mean Platelet Volume 10.8 fL (9.4-12.4); Platelet Count 198 K/mcL (140-400); Red Cell Distribution Width 14.7 % (11.5-14.5); White Blood Count 8.3 K/mcL (4.3-11.1)
[2019-09-19] MEDS ORDERED: 0.9 % Sodium Chloride 1,000 ML PRIME SCH (09:15)
[2019-09-19 09:32] LABS: Calcium 9.7 mg/dL (8.6-10.3); Magnesium 2.1 mg/dL (1.6-2.6); Phosphorous 10.2 mg/dL (2.7-4.5); Potassium 5.3 mEq/L (3.5-5.1)
[2019-09-19] MEDS ORDERED: 0.9 % Sodium Chloride 1,000 ML ONE (09:38)
[2019-09-19 11:54] LABS: Adenovirus Not Detected (Not Detect); Coronavirus 229E Not Detected (Not Detect); Coronavirus HKU1 Not Detected (Not Detect); Coronavirus NL63 Not Detected (Not Detect); Coronavirus OC43 Not Detected (Not Detect); Human Metapneumovirus Not Detected (Not Detect); Human Rhinovirus/Enterovirus Not Detected (Not Detect)
[2019-09-19 11:55] LABS: Bordetella Pertussis Not Detected (Not Detect); Chlamydophila pneumoniae Not Detected (Not Detect); Influenza A Subtype 2009 H1 Not Detected (Not Detect); Influenza B Not Detected (Not Detect); Mycoplasma pneumoniae Not Detected (Not Detect); Parainfluenza Virus 1 Not Detected (Not Detect); Parainfluenza Virus 2 Not Detected (Not Detect); Parainfluenza Virus 3 Not Detected (Not Detect); Parainfluenza Virus 4 Not Detected (Not Detect); Respiratory Syncytial Virus Not Detected (Not Detect)
[2019-09-19] MEDS ORDERED: Benzonatate 100 MG CAPSULE PO PRN (12:48)
[2019-09-19] MEDS: *HR* Heparin 5,000 UNIT/ML VIAL SQ SCH ×2 (14:30→21:16)
[2019-09-20] MEDS: *HR* OxyCODONE Immed Rel 5 MG TABLET PO PRN ×4 (05:21→22:24)
[2019-09-20] MEDS: *HR* Heparin 5,000 UNIT/ML VIAL SQ SCH ×3 (05:24→22:24)
[2019-09-20 06:06] LABS: Hematocrit 35.5 % (37.5-50.1); Hemoglobin 11.1 g/dL (12.9-16.9); Mean Corpuscular HGB Conc 31.3 g/dL (31.6-35.5); Mean Corpuscular Hemoglobin 28.7 pg (28.0-33.3); Mean Corpuscular Volume 91.7 fL (83.0-100.0); Mean Platelet Volume 10.5 fL (9.4-12.4); Platelet Count 192 K/mcL (140-400); Red Blood Count 3.87 M/mcL (4.19-5.50); Red Cell Distribution Width 14.9 % (11.5-14.5); White Blood Count 7.8 K/mcL (4.3-11.1)
[2019-09-20 06:25] LABS: Calcium 9.5 mg/dL (8.6-10.3); Potassium 5.4 mEq/L (3.5-5.1)
[2019-09-20] MEDS: Metoprolol XL (24 HR) Succ 50 MG TAB.ER.24H PO SCH (07:52)
[2019-09-20] MEDS: Aspirin Enteric Coated 81 MG Tablet PO SCH (07:52)
[2019-09-20] MEDS ORDERED: 0.9 % Sodium Chloride 250 ML IVC PRN (07:57)
[2019-09-20] MEDS ORDERED: *HR* Heparin 10,000 UNIT/10 ML VIAL IV PRN (08:50)
[2019-09-20] MEDS: Acetaminophen 325 MG TABLET PO PRN (20:32)
[2019-09-21] MEDS: *HR* Heparin 5,000 UNIT/ML VIAL SQ SCH ×2 (04:55→12:45)
[2019-09-21 06:25] LABS: Calcium 9.2 mg/dL (8.6-10.3); Potassium 5.5 mEq/L (3.5-5.1)
[2019-09-21] MEDS ORDERED: 0.9 % Sodium Chloride 250 ML IVC PRN (07:14)
[2019-09-21] MEDS: Aspirin Enteric Coated 81 MG Tablet PO SCH (07:18)
[2019-09-21] MEDS: Metoprolol XL (24 HR) Succ 50 MG TAB.ER.24H PO SCH (07:18)
[2019-09-21 16:16] VITALS: BP 117/76
== END 2019-09-21 17:30 | disposition home or self-care (01) | DRG 291 ==
LOC: 2ANU → SUATTDRO 17:08
PROVIDERS: ADMIT Internal Medicine; ATTEND Internal Medicine

== ENCOUNTER 2019-10-08 05:56 | Observation (INO) ==
[2019-10-08] MEDS ORDERED: *HR* OxyCODONE/APAP 5/325 TABLET PO ONE (09:32)
[2019-10-08] MEDS ORDERED: Acetaminophen 325 MG TABLET PO PRN (09:36)
[2019-10-08] MEDS ORDERED: Ondansetron 4 MG/2 ML VIAL IVP PRN (09:36)
[2019-10-08] MEDS ORDERED: Naloxone 0.4 MG/ML INJ IVP PRN (09:36)
[2019-10-08] MEDS ORDERED: 0.9 % Sodium Chloride 250 ML IVC PRN (09:43)
[2019-10-08] MEDS ORDERED: 0.9 % Sodium Chloride 1,000 ML PRIME SCH (09:45)
[2019-10-08 10:27] LABS: Basophils # 0.1 K/mcL (0.0-0.2); Eosinophils # 0.4 K/mcL (0.0-0.6); Eosinophils % 5.7 %; Hematocrit 35.8 % (37.5-50.1); Hemoglobin 11.2 g/dL (12.9-16.9); Immature Granulocytes % 0.1 % (0-4); Lymphocytes # 1.2 K/mcL (0.6-4.6); Lymphocytes % 16.3 %; Mean Corpuscular HGB Conc 31.3 g/dL (31.6-35.5); Mean Corpuscular Hemoglobin 29.2 pg (28.0-33.3); Mean Corpuscular Volume 93.2 fL (83.0-100.0); Mean Platelet Volume 10.2 fL (9.4-12.4); Monocytes # 0.6 K/mcL (0.0-1.3); Monocytes % 7.6 %; Platelet Count 169 K/mcL (140-400); Red Blood Count 3.84 M/mcL (4.19-5.50); Segmented Neutrophils % 69.3 %; White Blood Count 7.2 K/mcL (4.3-11.1)
[2019-10-08 10:45] LABS: Calcium 9.5 mg/dL (8.6-10.3)
[2019-10-08] MEDS ORDERED: *HR* Heparin 10,000 UNIT/10 ML VIAL IV PRN (11:53)
[2019-10-08] MEDS: *HR* Heparin 5,000 UNIT/ML VIAL SQ SCH (17:02)
[2019-10-08] MEDS: *HR* HYDROcodone/Acet 5/325 mg TABLET PO PRN (17:52)
[2019-10-08] MEDS ORDERED: Nicotine 14 MG PATCH.TD24 TD PRN (18:25)
[2019-10-09] MEDS: *HR* Heparin 5,000 UNIT/ML VIAL SQ SCH ×3 (01:08→15:01)
[2019-10-09] MEDS: *HR* HYDROcodone/Acet 5/325 mg TABLET PO PRN ×2 (02:01→15:58)
[2019-10-09] MEDS ORDERED: 0.9 % Sodium Chloride 250 ML IVC PRN (06:55)
[2019-10-09 07:00] LABS: Basophils # 0.1 K/mcL (0.0-0.2); Basophils % 1.1 %; Eosinophils # 0.4 K/mcL (0.0-0.6); Eosinophils % 7.9 %; Hematocrit 34.3 % (37.5-50.1); Hemoglobin 11.1 g/dL (12.9-16.9); Immature Granulocytes % 0.4 % (0-4); Lymphocytes # 1.1 K/mcL (0.6-4.6); Lymphocytes % 20.2 %; Mean Corpuscular HGB Conc 32.4 g/dL (31.6-35.5); Mean Corpuscular Volume 89.6 fL (83.0-100.0); Mean Platelet Volume 10.2 fL (9.4-12.4); Monocytes # 0.6 K/mcL (0.0-1.3); Monocytes % 11.3 %; Neutrophils # 3.1 K/mcL (1.6-8.9); Platelet Count 159 K/mcL (140-400); Red Blood Count 3.83 M/mcL (4.19-5.50); Red Cell Distribution Width 15.1 % (11.5-14.5); Segmented Neutrophils % 59.1 %; White Blood Count 5.3 K/mcL (4.3-11.1)
[2019-10-09 07:19] LABS: Calcium 9.3 mg/dL (8.6-10.3); Potassium 5.5 mEq/L (3.5-5.1)
[2019-10-09] MEDS ORDERED: Aspirin Enteric Coated 81 MG Tablet PO SCH (09:00)
[2019-10-09] MEDS ORDERED: Metoprolol XL (24 HR) Succ 50 MG TAB.ER.24H PO SCH (09:00)
[2019-10-09 15:14] VITALS: BP 147/95
== END 2019-10-09 18:33 | disposition home or self-care (01) ==
LOC: 2ANU → SUATTDRO 07:21
PROVIDERS: ADMIT Family Medicine; ATTEND Internal Medicine

== ENCOUNTER 2019-11-01 17:25 | Inpatient (IN) ==
[2019-11-01] MEDS ORDERED: Naloxone 0.4 MG/ML INJ IVP PRN (20:35)
[2019-11-01] MEDS ORDERED: Nitroglycerin 0.4 MG TAB.SUBL SL PRN (20:36)
[2019-11-01] MEDS ORDERED: *HR* Metoprolol 5 MG/5 ML VIAL IVP PRN (20:36)
[2019-11-01] MEDS ORDERED: Nicotine 14 MG PATCH.TD24 TD PRN (20:40)
[2019-11-01 21:11] LABS: Basophils # 0.1 K/mcL (0.0-0.2); Basophils % 1.1 %; Eosinophils # 0.2 K/mcL (0.0-0.6); Eosinophils % 3.2 %; Hematocrit 36.7 % (37.5-50.1); Hemoglobin 11.3 g/dL (12.9-16.9); Immature Granulocytes % 0.1 % (0-4); Lymphocytes # 1.2 K/mcL (0.6-4.6); Lymphocytes % 15.9 %; Mean Corpuscular HGB Conc 30.8 g/dL (31.6-35.5); Mean Corpuscular Hemoglobin 28.9 pg (28.0-33.3); Mean Corpuscular Volume 93.9 fL (83.0-100.0); Mean Platelet Volume 10.5 fL (9.4-12.4); Monocytes # 0.6 K/mcL (0.0-1.3); Monocytes % 8.6 %; Neutrophils # 5.3 K/mcL (1.6-8.9); Platelet Count 194 K/mcL (140-400); Red Blood Count 3.91 M/mcL (4.19-5.50); Red Cell Distribution Width 15.9 % (11.5-14.5); Segmented Neutrophils % 71.1 %; White Blood Count 7.4 K/mcL (4.3-11.1)
[2019-11-01 21:12] LABS: INR 1.2; Prothrombin Time 13.9 Seconds (9.4-12.1)
[2019-11-01 21:24] LABS: Calcium 9.3 mg/dL (8.6-10.3); Magnesium 2.1 mg/dL (1.6-2.6); Phosphorous 8.9 mg/dL (2.7-4.5); Potassium 5.6 mEq/L (3.5-5.1)
[2019-11-02 03:46] LABS: Basophils # 0.1 K/mcL (0.0-0.2); Basophils % 0.9 %; Eosinophils # 0.3 K/mcL (0.0-0.6); Eosinophils % 3.4 %; Hematocrit 36.9 % (37.5-50.1); Hemoglobin 11.4 g/dL (12.9-16.9); Immature Granulocytes % 0.3 % (0-4); Lymphocytes # 1.3 K/mcL (0.6-4.6); Mean Corpuscular HGB Conc 30.9 g/dL (31.6-35.5); Mean Corpuscular Hemoglobin 29.2 pg (28.0-33.3); Mean Corpuscular Volume 94.6 fL (83.0-100.0); Mean Platelet Volume 10.6 fL (9.4-12.4); Monocytes # 0.7 K/mcL (0.0-1.3); Monocytes % 8.5 %; Neutrophils # 5.5 K/mcL (1.6-8.9); Platelet Count 185 K/mcL (140-400); Red Cell Distribution Width 15.9 % (11.5-14.5); Segmented Neutrophils % 69.9 %; White Blood Count 7.9 K/mcL (4.3-11.1)
[2019-11-02 04:01] LABS: Calcium 9.4 mg/dL (8.6-10.3); Potassium 5.8 mEq/L (3.5-5.1)
[2019-11-02 04:41] LABS: INR 1.2; Prothrombin Time 13.7 Seconds (9.4-12.1)
[2019-11-02] MEDS ORDERED: 0.9 % Sodium Chloride 250 ML IVC PRN (07:05)
[2019-11-02] MEDS ORDERED: 0.9 % Sodium Chloride 1,000 ML PRIME SCH (07:15)
[2019-11-02] MEDS: Aspirin 81 MG TAB.CHEW PO SCH (07:28)
[2019-11-02] MEDS: Metoprolol XL (24 HR) Succ 50 MG TAB.ER.24H PO SCH (13:07)
[2019-11-02] MEDS: *HR* Heparin 5,000 UNIT/ML VIAL SQ SCH ×2 (13:10→22:44)
[2019-11-03] MEDS ORDERED: *HR* HYDROcodone/Acet 5/325 mg TABLET PO ONE (05:27)
[2019-11-03 05:44] LABS: Basophils # 0.1 K/mcL (0.0-0.2); Basophils % 1.1 %; Eosinophils # 0.3 K/mcL (0.0-0.6); Eosinophils % 3.8 %; Hematocrit 33.8 % (37.5-50.1); Hemoglobin 10.4 g/dL (12.9-16.9); Immature Granulocytes % 0.2 % (0-4); Lymphocytes # 1.2 K/mcL (0.6-4.6); Lymphocytes % 18.2 %; Mean Corpuscular HGB Conc 30.8 g/dL (31.6-35.5); Mean Corpuscular Hemoglobin 28.5 pg (28.0-33.3); Mean Corpuscular Volume 92.6 fL (83.0-100.0); Mean Platelet Volume 10.6 fL (9.4-12.4); Monocytes # 0.6 K/mcL (0.0-1.3); Monocytes % 9.3 %; Neutrophils # 4.4 K/mcL (1.6-8.9); Platelet Count 182 K/mcL (140-400); Red Blood Count 3.65 M/mcL (4.19-5.50); Red Cell Distribution Width 15.9 % (11.5-14.5); Segmented Neutrophils % 67.4 %; White Blood Count 6.6 K/mcL (4.3-11.1)
[2019-11-03 06:06] LABS: Calcium 9.1 mg/dL (8.6-10.3); Potassium 5.4 mEq/L (3.5-5.1)
[2019-11-03] MEDS ORDERED: 0.9 % Sodium Chloride 250 ML IVC PRN (07:10)
[2019-11-03] MEDS: Ondansetron 4 MG/2 ML VIAL IVP PRN (07:46)
[2019-11-03] MEDS: Aspirin 81 MG TAB.CHEW PO SCH (09:20)
[2019-11-03] MEDS: *HR* Heparin 5,000 UNIT/ML VIAL SQ SCH ×2 (09:20→22:13)
[2019-11-03] MEDS: Metoprolol XL (24 HR) Succ 50 MG TAB.ER.24H PO SCH (12:47)
[2019-11-03] MEDS: Acetaminophen 325 MG TABLET PO PRN (16:42)
[2019-11-04 04:54] LABS: Basophils # 0.1 K/mcL (0.0-0.2); Basophils % 0.9 %; Eosinophils # 0.3 K/mcL (0.0-0.6); Eosinophils % 5.1 %; Hematocrit 35.9 % (37.5-50.1); Hemoglobin 10.9 g/dL (12.9-16.9); Immature Granulocytes % 0.2 % (0-4); Lymphocytes # 1.1 K/mcL (0.6-4.6); Mean Corpuscular HGB Conc 30.4 g/dL (31.6-35.5); Mean Corpuscular Hemoglobin 28.7 pg (28.0-33.3); Mean Corpuscular Volume 94.5 fL (83.0-100.0); Mean Platelet Volume 10.4 fL (9.4-12.4); Monocytes # 0.6 K/mcL (0.0-1.3); Neutrophils # 3.6 K/mcL (1.6-8.9); Platelet Count 169 K/mcL (140-400); Red Cell Distribution Width 15.7 % (11.5-14.5); Segmented Neutrophils % 63.8 %; White Blood Count 5.6 K/mcL (4.3-11.1)
[2019-11-04 05:17] LABS: Potassium 5.4 mEq/L (3.5-5.1)
[2019-11-04] MEDS: Acetaminophen 325 MG TABLET PO PRN (05:43)
[2019-11-04] MEDS ORDERED: *HR* HYDROmorphone (PF) 1 MG/ML SYRINGE IVP ONE (05:50)
[2019-11-04] MEDS: Ondansetron 4 MG/2 ML VIAL IVP PRN (06:32)
[2019-11-04] MEDS ORDERED: 0.9 % Sodium Chloride 250 ML IVC PRN (07:05)
[2019-11-04] MEDS: Aspirin 81 MG TAB.CHEW PO SCH (09:00)
[2019-11-04] MEDS: *HR* Heparin 5,000 UNIT/ML VIAL SQ SCH (09:04)
[2019-11-04 10:54] VITALS: BP 152/97
[2019-11-04] MEDS: Metoprolol XL (24 HR) Succ 50 MG TAB.ER.24H PO SCH (13:01)
== END 2019-11-04 13:55 | disposition home or self-care (01) | DRG 880 ==
LOC: 2ANU → SUATTDRO 19:32
PROVIDERS: ADMIT Pharmacist; ATTEND Internal Medicine

== ENCOUNTER 2019-11-27 01:16 | Inpatient (IN) ==
[2019-11-27] MEDS ORDERED: Naloxone 0.4 MG/ML INJ IVP PRN (05:02)
[2019-11-27 05:42] LABS: Basophils % 0.6 %; Eosinophils # 0.2 K/mcL (0.0-0.6); Eosinophils % 4.1 %; Hematocrit 33.8 % (37.5-50.1); Hemoglobin 10.6 g/dL (12.9-16.9); Immature Granulocytes % 0.2 % (0-4); Lymphocytes # 0.6 K/mcL (0.6-4.6); Lymphocytes % 11.3 %; Mean Corpuscular HGB Conc 31.4 g/dL (31.6-35.5); Mean Corpuscular Hemoglobin 28.9 pg (28.0-33.3); Mean Corpuscular Volume 92.1 fL (83.0-100.0); Monocytes # 0.7 K/mcL (0.0-1.3); Monocytes % 13.6 %; Neutrophils # 3.4 K/mcL (1.6-8.9); Platelet Count 139 K/mcL (140-400); Red Blood Count 3.67 M/mcL (4.19-5.50); Red Cell Distribution Width 15.5 % (11.5-14.5); Segmented Neutrophils % 70.2 %; White Blood Count 4.9 K/mcL (4.3-11.1)
[2019-11-27 06:00] LABS: Potassium 3.9 mEq/L (3.5-5.1)
[2019-11-27] MEDS ORDERED: 0.9 % Sodium Chloride 250 ML IVC PRN (07:06)
[2019-11-27] MEDS ORDERED: 0.9 % Sodium Chloride 1,000 ML PRIME SCH (07:15)
[2019-11-27] MEDS: Cholecalciferol (D-3) 1,000 UNIT (25MCG) TABLET PO SCH ×2 (07:27→16:33)
[2019-11-27] MEDS: lisinopriL 10 MG TABLET PO SCH (07:27)
[2019-11-27] MEDS: Patient Taking Own Medication 1 EACH PO SCH ×2 (07:28→16:33)
[2019-11-27] MEDS: Aspirin Enteric Coated 81 MG Tablet PO SCH (07:28)
[2019-11-27] MEDS: Metoprolol XL (24 HR) Succ 50 MG TAB.ER.24H PO SCH (07:28)
[2019-11-27] MEDS ORDERED: *HR* HYDROcodone/Acet 5/325 mg TABLET ONE (13:39)
[2019-11-27] MEDS: *HR* HYDROcodone/Acet 5/325 mg TABLET PO PRN (22:47)
[2019-11-28] MEDS ORDERED: *HR* OxyCODONE Immed Rel 5 MG TABLET PO ONE
[2019-11-28 07:23] LABS: Hematocrit 32.6 % (37.5-50.1); Mean Corpuscular HGB Conc 30.7 g/dL (31.6-35.5); Mean Corpuscular Hemoglobin 28.7 pg (28.0-33.3); Mean Corpuscular Volume 93.4 fL (83.0-100.0); Mean Platelet Volume 10.8 fL (9.4-12.4); Platelet Count 148 K/mcL (140-400); Red Blood Count 3.49 M/mcL (4.19-5.50); Red Cell Distribution Width 15.5 % (11.5-14.5); White Blood Count 5.4 K/mcL (4.3-11.1)
[2019-11-28 07:35] LABS: Calcium 8.7 mg/dL (8.6-10.3)
[2019-11-28] MEDS: lisinopriL 10 MG TABLET PO SCH (07:59)
[2019-11-28] MEDS: Cholecalciferol (D-3) 1,000 UNIT (25MCG) TABLET PO SCH (07:59)
[2019-11-28] MEDS: Aspirin Enteric Coated 81 MG Tablet PO SCH (08:00)
[2019-11-28] MEDS: Metoprolol XL (24 HR) Succ 50 MG TAB.ER.24H PO SCH (08:00)
[2019-11-28] MEDS: Patient Taking Own Medication 1 EACH PO SCH ×3 (08:00→13:27)
[2019-11-28] MEDS ORDERED: Sennosides/Docusate Sodium TABLET PO PRN (16:57)
[2019-11-28] MEDS ORDERED: Menthol 9.1 MG LOZENGE PO PRN (16:57)
[2019-11-28] MEDS: *HR* HYDROcodone/Acet 5/325 mg TABLET PO PRN (17:37)
[2019-11-28] MEDS: Simethicone 80 MG TAB.CHEW PO PRN (20:53)
[2019-11-29] MEDS ORDERED: Simethicone 80 MG TAB.CHEW PO ONE (00:42)
[2019-11-29] MEDS ORDERED: polyethylene glycoL 3350 17 GM POWD.PACK PO PRN (00:42)
[2019-11-29 06:05] LABS: Hemoglobin 10.2 g/dL (12.9-16.9); Mean Corpuscular HGB Conc 30.9 g/dL (31.6-35.5); Mean Corpuscular Hemoglobin 28.7 pg (28.0-33.3); Mean Platelet Volume 10.5 fL (9.4-12.4); Platelet Count 170 K/mcL (140-400); Red Blood Count 3.55 M/mcL (4.19-5.50); Red Cell Distribution Width 15.4 % (11.5-14.5)
[2019-11-29 06:28] LABS: Potassium 4.9 mEq/L (3.5-5.1)
[2019-11-29] MEDS: Patient Taking Own Medication 1 EACH PO SCH ×3 (08:12→15:33)
[2019-11-29] MEDS: Cholecalciferol (D-3) 1,000 UNIT (25MCG) TABLET PO SCH (08:15)
[2019-11-29] MEDS ORDERED: 0.9 % Sodium Chloride 250 ML IVC PRN (08:15)
[2019-11-29] MEDS: Metoprolol XL (24 HR) Succ 50 MG TAB.ER.24H PO SCH (08:15)
[2019-11-29] MEDS: Aspirin Enteric Coated 81 MG Tablet PO SCH (08:15)
[2019-11-29] MEDS: lisinopriL 10 MG TABLET PO SCH (08:15)
[2019-11-29] MEDS: Simethicone 80 MG TAB.CHEW PO PRN (08:19)
[2019-11-29 15:57] VITALS: BP 164/91
== END 2019-11-29 18:00 | disposition home or self-care (01) | DRG 698 ==
LOC: 2ANU → SUATTDRO 04:39 → 2ANU 11-28 10:16
PROVIDERS: ADMIT Internal Medicine; ATTEND Family Medicine

== ENCOUNTER 2020-01-14 10:59 | Inpatient (IN) ==
[2020-01-14 11:56] LABS: Basophils % 0.4 %; Eosinophils # 0.2 K/mcL (0.0-0.6); Eosinophils % 3.1 %; Hematocrit 36.4 % (37.5-50.1); Immature Granulocytes % 0.3 % (0-4); Lymphocytes # 0.8 K/mcL (0.6-4.6); Lymphocytes % 10.8 %; Mean Corpuscular HGB Conc 30.2 g/dL (31.6-35.5); Mean Corpuscular Hemoglobin 28.1 pg (28.0-33.3); Mean Corpuscular Volume 93.1 fL (83.0-100.0); Mean Platelet Volume 10.6 fL (9.4-12.4); Monocytes # 0.5 K/mcL (0.0-1.3); Monocytes % 6.4 %; Neutrophils # 5.8 K/mcL (1.6-8.9); Platelet Count 192 K/mcL (140-400); Red Blood Count 3.91 M/mcL (4.19-5.50); Red Cell Distribution Width 15.9 % (11.5-14.5); White Blood Count 7.3 K/mcL (4.3-11.1)
[2020-01-14 12:06] LABS: Albumin 3.2 g/dL (3.5-5.7); Bilirubin,Direct 0.1 mg/dL (0.0-0.2); Bilirubin,Indirect 0.3 mg/dL (0.0-1.0); Bilirubin,Total 0.4 mg/dL (0.3-1.0); Globulin 3.1 g/dL (2.4-3.5); Magnesium 2.1 mg/dL (1.6-2.6); Total Protein 6.3 g/dL (6.4-8.9)
[2020-01-14 12:24] LABS: Troponin I 0.05 ng/mL (< 0.04)
[2020-01-14] MEDS ORDERED: *HR* OxyCODONE Immed Rel 5 MG TABLET PO ONE (12:25)
[2020-01-14] MEDS ORDERED: 0.9 % Sodium Chloride 250 ML IVC PRN (12:50)
[2020-01-14] MEDS ORDERED: 0.9 % Sodium Chloride 1,000 ML PRIME SCH (13:00)
[2020-01-14] MEDS ORDERED: Naloxone 0.4 MG/ML INJ IVP PRN (13:58)
[2020-01-14] MEDS ORDERED: *HR* Heparin 5,000 UNIT/ML VIAL ONE (17:00)
[2020-01-14] MEDS: *HR* Heparin 5,000 UNIT/ML VIAL SQ SCH (22:43)
[2020-01-14] MEDS: Acetaminophen 325 MG TABLET PO PRN (22:44)
[2020-01-15] MEDS: *HR* OxyCODONE Immed Rel 5 MG TABLET PO PRN ×3 (01:06→22:39)
[2020-01-15 03:08] LABS: Basophils % 0.4 %; Eosinophils # 0.3 K/mcL (0.0-0.6); Eosinophils % 3.7 %; Hematocrit 34.1 % (37.5-50.1); Hemoglobin 10.4 g/dL (12.9-16.9); Immature Granulocytes % 0.1 % (0-4); Lymphocytes # 1.1 K/mcL (0.6-4.6); Lymphocytes % 14.3 %; Mean Corpuscular HGB Conc 30.5 g/dL (31.6-35.5); Mean Corpuscular Hemoglobin 28.4 pg (28.0-33.3); Mean Corpuscular Volume 93.2 fL (83.0-100.0); Mean Platelet Volume 10.3 fL (9.4-12.4); Monocytes # 0.5 K/mcL (0.0-1.3); Neutrophils # 5.8 K/mcL (1.6-8.9); Platelet Count 157 K/mcL (140-400); Red Blood Count 3.66 M/mcL (4.19-5.50); Red Cell Distribution Width 15.9 % (11.5-14.5); Segmented Neutrophils % 74.5 %; White Blood Count 7.8 K/mcL (4.3-11.1)
[2020-01-15 03:28] LABS: Calcium 8.6 mg/dL (8.6-10.3); Potassium 4.5 mEq/L (3.5-5.1)
[2020-01-15] MEDS ORDERED: 0.9 % Sodium Chloride 250 ML IVC PRN (06:51)
[2020-01-15] MEDS: *HR* Heparin 5,000 UNIT/ML VIAL SQ SCH ×3 (08:28→22:52)
[2020-01-15] MEDS ORDERED: *HR* Heparin 10,000 UNIT/10 ML VIAL IV PRN (10:45)
[2020-01-15] MEDS: Acetaminophen 325 MG TABLET PO PRN (13:14)
[2020-01-16] MEDS: Acetaminophen 325 MG TABLET PO PRN ×2 (02:23→19:01)
[2020-01-16 02:48] LABS: Basophils # 0.1 K/mcL (0.0-0.2); Basophils % 0.8 %; Eosinophils # 0.3 K/mcL (0.0-0.6); Eosinophils % 4.2 %; Hematocrit 33.5 % (37.5-50.1); Hemoglobin 10.1 g/dL (12.9-16.9); Immature Granulocytes % 0.2 % (0-4); Lymphocytes # 0.9 K/mcL (0.6-4.6); Mean Corpuscular HGB Conc 30.1 g/dL (31.6-35.5); Mean Corpuscular Hemoglobin 28.3 pg (28.0-33.3); Mean Corpuscular Volume 93.8 fL (83.0-100.0); Mean Platelet Volume 10.2 fL (9.4-12.4); Monocytes # 0.5 K/mcL (0.0-1.3); Neutrophils # 4.4 K/mcL (1.6-8.9); Platelet Count 166 K/mcL (140-400); Red Blood Count 3.57 M/mcL (4.19-5.50); Red Cell Distribution Width 15.8 % (11.5-14.5); Segmented Neutrophils % 71.8 %; White Blood Count 6.1 K/mcL (4.3-11.1)
[2020-01-16 03:07] LABS: Calcium 8.7 mg/dL (8.6-10.3); Potassium 4.3 mEq/L (3.5-5.1)
[2020-01-16] MEDS: *HR* Heparin 5,000 UNIT/ML VIAL SQ SCH ×3 (06:40→19:48)
[2020-01-16] MEDS ORDERED: Ketorolac 30 MG/ML VIAL IVP ONE (10:25)
[2020-01-17 01:53] LABS: Basophils % 0.7 %; Eosinophils # 0.3 K/mcL (0.0-0.6); Eosinophils % 5.3 %; Hematocrit 33.4 % (37.5-50.1); Hemoglobin 10.1 g/dL (12.9-16.9); Immature Granulocytes % 0.4 % (0-4); Lymphocytes # 1.1 K/mcL (0.6-4.6); Lymphocytes % 20.4 %; Mean Corpuscular HGB Conc 30.2 g/dL (31.6-35.5); Mean Corpuscular Hemoglobin 28.5 pg (28.0-33.3); Mean Corpuscular Volume 94.1 fL (83.0-100.0); Mean Platelet Volume 10.1 fL (9.4-12.4); Monocytes # 0.4 K/mcL (0.0-1.3); Monocytes % 7.3 %; Neutrophils # 3.6 K/mcL (1.6-8.9); Platelet Count 173 K/mcL (140-400); Red Blood Count 3.55 M/mcL (4.19-5.50); Red Cell Distribution Width 15.8 % (11.5-14.5); Segmented Neutrophils % 65.9 %; White Blood Count 5.5 K/mcL (4.3-11.1)
[2020-01-17 02:10] LABS: Calcium 8.8 mg/dL (8.6-10.3); Potassium 5.2 mEq/L (3.5-5.1)
[2020-01-17] MEDS ORDERED: *HR* Promethazine 25 MG/ML VIAL IVP ONE (02:37)
[2020-01-17] MEDS: *HR* Heparin 5,000 UNIT/ML VIAL SQ SCH ×3 (05:03→20:23)
[2020-01-17] MEDS ORDERED: 0.9 % Sodium Chloride 250 ML IVC PRN ×2 (07:25→09:01)
[2020-01-17] MEDS: Acetaminophen 325 MG TABLET PO PRN ×2 (08:06→14:38)
[2020-01-17] MEDS ORDERED: *HR* Heparin 10,000 UNIT/10 ML VIAL IV PRN (09:01)
[2020-01-18 03:32] LABS: Basophils % 0.6 %; Eosinophils # 0.3 K/mcL (0.0-0.6); Eosinophils % 4.3 %; Hematocrit 31.3 % (37.5-50.1); Hemoglobin 9.8 g/dL (12.9-16.9); Immature Granulocytes % 0.2 % (0-4); Lymphocytes # 0.9 K/mcL (0.6-4.6); Lymphocytes % 14.8 %; Mean Corpuscular HGB Conc 31.3 g/dL (31.6-35.5); Mean Corpuscular Volume 92.6 fL (83.0-100.0); Mean Platelet Volume 10.4 fL (9.4-12.4); Monocytes # 0.5 K/mcL (0.0-1.3); Monocytes % 7.2 %; Neutrophils # 4.5 K/mcL (1.6-8.9); Platelet Count 157 K/mcL (140-400); Red Blood Count 3.38 M/mcL (4.19-5.50); Red Cell Distribution Width 15.8 % (11.5-14.5); Segmented Neutrophils % 72.9 %; White Blood Count 6.2 K/mcL (4.3-11.1)
[2020-01-18] MEDS: Acetaminophen 325 MG TABLET PO PRN (03:41)
[2020-01-18 03:52] LABS: Calcium 8.9 mg/dL (8.6-10.3); Potassium 5.1 mEq/L (3.5-5.1)
[2020-01-18] MEDS: *HR* Heparin 5,000 UNIT/ML VIAL SQ SCH (05:43)
[2020-01-18] MEDS ORDERED: 0.9 % Sodium Chloride 250 ML IVC PRN (07:24)
[2020-01-18 12:46] VITALS: BP 166/113
== END 2020-01-18 13:01 | disposition home or self-care (01) | DRG 640 ==
LOC: 2ANU 10:59 → EMEROOARM 10:59 → 2ANU 14:05 → SUATTDRO 01-16 12:28
PROVIDERS: ADMIT Internal Medicine; ATTEND Internal Medicine

== ENCOUNTER 2020-03-20 15:36 | Observation (INO) ==
[2020-03-20 17:10] LABS: Basophils % 0.5 %; Eosinophils # 0.2 K/mcL (0.0-0.6); Eosinophils % 2.9 %; Hematocrit 32.6 % (37.5-50.1); Hemoglobin 9.9 g/dL (12.9-16.9); Immature Granulocytes % 0.2 % (0-4); Lymphocytes # 0.8 K/mcL (0.6-4.6); Lymphocytes % 12.1 %; Mean Corpuscular HGB Conc 30.4 g/dL (31.6-35.5); Mean Corpuscular Hemoglobin 27.7 pg (28.0-33.3); Mean Corpuscular Volume 91.1 fL (83.0-100.0); Mean Platelet Volume 10.1 fL (9.4-12.4); Monocytes # 0.5 K/mcL (0.0-1.3); Monocytes % 8.1 %; Neutrophils # 4.7 K/mcL (1.6-8.9); Platelet Count 168 K/mcL (140-400); Red Blood Count 3.58 M/mcL (4.19-5.50); Red Cell Distribution Width 16.8 % (11.5-14.5); Segmented Neutrophils % 76.2 %; White Blood Count 6.2 K/mcL (4.3-11.1)
[2020-03-20 17:13] LABS: Activated Partial Thrombo Time 36.8 Seconds (26.0-36.0); INR 1.3; Prothrombin Time 14.2 Seconds (9.4-12.1)
[2020-03-20 17:25] LABS: Albumin 3.3 g/dL (3.5-5.7); Bilirubin,Direct 0.1 mg/dL (0.0-0.2); Bilirubin,Indirect 0.3 mg/dL (0.0-1.0); Bilirubin,Total 0.4 mg/dL (0.3-1.0); Calcium 8.8 mg/dL (8.6-10.3); Globulin 3.3 g/dL (2.4-3.5); Potassium 4.7 mEq/L (3.5-5.1); Total Protein 6.6 g/dL (6.4-8.9)
[2020-03-20 17:33] LABS: Troponin I 0.05 ng/mL (< 0.04)
[2020-03-20] MEDS ORDERED: Morphine Sulfate 2 MG/ML SYRINGE IVP ONE (17:47)
[2020-03-20] MEDS ORDERED: Naloxone 0.4 MG/ML INJ IVP PRN (18:01)
[2020-03-20] MEDS: *HR* HYDROcodone/Acet 5/325 mg TABLET PO PRN (20:29)
[2020-03-21] MEDS: Ondansetron ODT 4 MG TAB.RAPDIS SL PRN ×2 (01:48→21:10)
[2020-03-21] MEDS: *HR* HYDROcodone/Acet 5/325 mg TABLET PO PRN ×3 (04:38→22:56)
[2020-03-21] MEDS: *HR* Heparin 5,000 UNIT/ML VIAL SQ SCH ×2 (05:00→17:38)
[2020-03-21] MEDS ORDERED: 0.9 % Sodium Chloride 250 ML IVC PRN (07:27)
[2020-03-21] MEDS ORDERED: 0.9 % Sodium Chloride 1,000 ML PRIME SCH (07:30)
[2020-03-21 08:49] LABS: Basophils # 0.1 K/mcL (0.0-0.2); Basophils % 0.7 %; Eosinophils # 0.3 K/mcL (0.0-0.6); Eosinophils % 4.2 %; Hematocrit 34.5 % (37.5-50.1); Hemoglobin 10.3 g/dL (12.9-16.9); Immature Granulocytes % 0.3 % (0-4); Lymphocytes # 1.3 K/mcL (0.6-4.6); Lymphocytes % 18.4 %; Mean Corpuscular HGB Conc 29.9 g/dL (31.6-35.5); Mean Corpuscular Hemoglobin 27.5 pg (28.0-33.3); Mean Platelet Volume 10.1 fL (9.4-12.4); Monocytes # 0.7 K/mcL (0.0-1.3); Monocytes % 9.5 %; Neutrophils # 4.6 K/mcL (1.6-8.9); Platelet Count 179 K/mcL (140-400); Red Blood Count 3.75 M/mcL (4.19-5.50); Red Cell Distribution Width 16.9 % (11.5-14.5); Segmented Neutrophils % 66.9 %; White Blood Count 6.9 K/mcL (4.3-11.1)
[2020-03-21] MEDS ORDERED: Metoprolol XL (24 HR) Succ 25 MG TAB.ER.24H PO SCH (09:00)
[2020-03-21 09:43] LABS: Hepatitis B Surface Antigen Nonreactive (Nonreactive)
[2020-03-21] MEDS ORDERED: Albumin 25% 25gram/100mL 25 GM/100 ML IV.SOLN IVPB ONE (14:19)
[2020-03-21 14:20] LABS: Albumin 3.2 g/dL (3.5-5.7); Albumin/Globulin Ratio 1.1 (1.1-2.2); Bilirubin,Direct 0.1 mg/dL (0.0-0.2); Bilirubin,Indirect 0.3 mg/dL (0.0-1.0); Bilirubin,Total 0.4 mg/dL (0.3-1.0); Calcium 8.4 mg/dL (8.6-10.3); Potassium 5.6 mEq/L (3.5-5.1); Total Protein 6.2 g/dL (6.4-8.9); Troponin I 0.04 ng/mL (< 0.04)
[2020-03-22 03:50] LABS: Calcium 9.1 mg/dL (8.6-10.3); Potassium 6.2 mEq/L (3.5-5.1)
[2020-03-22] MEDS: *HR* HYDROcodone/Acet 5/325 mg TABLET PO PRN ×2 (05:10→12:04)
[2020-03-22] MEDS: *HR* Heparin 5,000 UNIT/ML VIAL SQ SCH (05:10)
[2020-03-22] MEDS ORDERED: *HR* Heparin 10,000 UNIT/10 ML VIAL IV PRN (08:08)
[2020-03-22] MEDS ORDERED: 0.9 % Sodium Chloride 250 ML IVC PRN (08:08)
[2020-03-22 14:37] LABS: Calcium 9.3 mg/dL (8.6-10.3); Potassium 4.2 mEq/L (3.5-5.1)
[2020-03-22 16:47] VITALS: BP 138/87
== END 2020-03-22 19:00 | disposition home or self-care (01) ==
LOC: EMEROOARM 15:36 → 2ANU 15:36 → SUATTDRO 18:03 → 2ANU 18:50
PROVIDERS: ADMIT Internal Medicine; ATTEND Internal Medicine

== ENCOUNTER 2020-04-04 05:44 | Inpatient (IN) ==
[2020-04-04 06:15] LABS: Basophils # 0.1 K/mcL (0.0-0.2); Basophils % 1.1 %; Eosinophils # 0.2 K/mcL (0.0-0.6); Hematocrit 37.3 % (37.5-50.1); Hemoglobin 11.2 g/dL (12.9-16.9); Immature Granulocytes % 0.3 % (0-4); Lymphocytes # 0.9 K/mcL (0.6-4.6); Lymphocytes % 12.5 %; Mean Corpuscular Hemoglobin 27.7 pg (28.0-33.3); Mean Corpuscular Volume 92.1 fL (83.0-100.0); Mean Platelet Volume 10.3 fL (9.4-12.4); Monocytes # 0.7 K/mcL (0.0-1.3); Monocytes % 10.2 %; Neutrophils # 5.3 K/mcL (1.6-8.9); Platelet Count 189 K/mcL (140-400); Red Blood Count 4.05 M/mcL (4.19-5.50); Red Cell Distribution Width 16.9 % (11.5-14.5); Segmented Neutrophils % 72.9 %; White Blood Count 7.2 K/mcL (4.3-11.1)
[2020-04-04 06:38] LABS: Albumin 3.5 g/dL (3.5-5.7); Bilirubin,Total 0.5 mg/dL (0.3-1.0); Calcium 9.3 mg/dL (8.6-10.3); Globulin 3.5 g/dL (2.4-3.5); Potassium 5.1 mEq/L (3.5-5.1)
[2020-04-04 06:49] LABS: Bilirubin,Urine Negative (Negative); Blood,Urine Moderate (Negative); Clarity,Urine Turbid (Clear); Glucose,Urine (UA) Normal (Normal); Ketones,Urine Negative (Negative); Leukocyte Esterase,Urine Small (Negative); Nitrite,Urine Negative (Negative); PH,Urine 8.5 pH Units (5.0-8.0); Protein,Urine >=300 mg/dL (Neg-Trace); Urobilinogen,Urine Normal (Normal)
[2020-04-04 06:50] LABS: Color,Urine Light Yellow (Yellow)
[2020-04-04 06:52] LABS: Bacteria,Urine Many per hpf (None-Few)
[2020-04-04 06:55] LABS: WBC,Urine Present per hpf (0-3)
[2020-04-04] MEDS ORDERED: 0.9 % Sodium Chloride 250 ML IVC PRN (07:09)
[2020-04-04] MEDS ORDERED: Naloxone 0.4 MG/ML INJ IVP PRN (07:12)
[2020-04-04] MEDS ORDERED: Ondansetron 4 MG/2 ML VIAL IVP PRN (07:12)
[2020-04-04] MEDS ORDERED: 0.9 % Sodium Chloride 1,000 ML PRIME SCH (07:15)
[2020-04-04] MEDS ORDERED: Metoprolol XL (24 HR) Succ 25 MG TAB.ER.24H PO SCH (09:00)
[2020-04-04] MEDS ORDERED: Acetaminophen 325 MG TABLET PO PRN (14:33)
[2020-04-04] MEDS: *HR* HYDROcodone/Acet 5/325 mg TABLET PO PRN (17:39)
[2020-04-04] MEDS: *HR* Heparin 5,000 UNIT/ML VIAL SQ SCH (17:41)
[2020-04-05 03:04] LABS: Basophils # 0.1 K/mcL (0.0-0.2); Basophils % 1.2 %; Eosinophils # 0.3 K/mcL (0.0-0.6); Eosinophils % 5.3 %; Hematocrit 34.7 % (37.5-50.1); Hemoglobin 10.3 g/dL (12.9-16.9); Immature Granulocytes % 0.2 % (0-4); Lymphocytes % 19.8 %; Mean Corpuscular HGB Conc 29.7 g/dL (31.6-35.5); Mean Corpuscular Hemoglobin 28.1 pg (28.0-33.3); Mean Corpuscular Volume 94.8 fL (83.0-100.0); Mean Platelet Volume 10.2 fL (9.4-12.4); Monocytes # 0.6 K/mcL (0.0-1.3); Monocytes % 11.7 %; Neutrophils # 3.2 K/mcL (1.6-8.9); Platelet Count 170 K/mcL (140-400); Red Blood Count 3.66 M/mcL (4.19-5.50); Red Cell Distribution Width 16.6 % (11.5-14.5); Segmented Neutrophils % 61.8 %; White Blood Count 5.1 K/mcL (4.3-11.1)
[2020-04-05 03:26] LABS: Calcium 8.7 mg/dL (8.6-10.3); Magnesium 2.1 mg/dL (1.6-2.6); Potassium 4.5 mEq/L (3.5-5.1)
[2020-04-05] MEDS: *HR* HYDROcodone/Acet 5/325 mg TABLET PO PRN ×2 (03:35→14:26)
[2020-04-05] MEDS: *HR* Heparin 5,000 UNIT/ML VIAL SQ SCH ×2 (05:13→18:03)
[2020-04-05] MEDS: Metoprolol XL (24 HR) Succ 25 MG TAB.ER.24H PO SCH ×2 (10:26→14:26)
[2020-04-06 02:49] LABS: Hematocrit 34.9 % (37.5-50.1); Hemoglobin 10.2 g/dL (12.9-16.9); Mean Corpuscular HGB Conc 29.2 g/dL (31.6-35.5); Mean Corpuscular Hemoglobin 27.3 pg (28.0-33.3); Mean Corpuscular Volume 93.6 fL (83.0-100.0); Mean Platelet Volume 9.8 fL (9.4-12.4); Platelet Count 166 K/mcL (140-400); Red Blood Count 3.73 M/mcL (4.19-5.50); Red Cell Distribution Width 16.7 % (11.5-14.5)
[2020-04-06 03:09] LABS: Calcium 8.7 mg/dL (8.6-10.3); Potassium 4.6 mEq/L (3.5-5.1)
[2020-04-06] MEDS: *HR* Heparin 5,000 UNIT/ML VIAL SQ SCH ×2 (04:48→17:00)
[2020-04-06] MEDS: *HR* HYDROcodone/Acet 5/325 mg TABLET PO PRN (04:48)
[2020-04-06] MEDS: Metoprolol XL (24 HR) Succ 25 MG TAB.ER.24H PO SCH (15:01)
[2020-04-06 16:23] VITALS: BP 163/110
== END 2020-04-06 18:19 | disposition home or self-care (01) | DRG 291 ==
LOC: EMEROOARM 05:44 → 2ANU 05:44 → SUATTDRO 07:49 → 2ANU 09:37 → SUATTDRO 04-05 10:56
PROVIDERS: ADMIT Internal Medicine; ATTEND Internal Medicine

== ENCOUNTER 2020-07-07 13:56 | Inpatient (IN) ==
[2020-07-07] MEDS ORDERED: Naloxone 0.4 MG/ML INJ IVP PRN (16:26)
[2020-07-07] MEDS ORDERED: Calcium Gluconate 1,000 MG/10 ML VIAL IVPB ONE (16:31)
[2020-07-07] MEDS ORDERED: *HR* Dextrose 50 % in Water (Vial) 50 ML VIAL IVP ONE ×2 (16:33→18:20)
[2020-07-07] MEDS ORDERED: Insulin Human Regular 15 UNIT in 0.9 % Sodium Chloride 10 ML IV ONE (16:34)
[2020-07-07] MEDS ORDERED: Furosemide 40 MG/4 ML VIAL IVP ONE (16:35)
[2020-07-07] MEDS: Ondansetron 4 MG/2 ML VIAL IVP PRN (17:06)
[2020-07-07 17:10] LABS: Basophils % 0.8 %; Eosinophils # 0.2 K/mcL (0.0-0.6); Eosinophils % 4.2 %; Hematocrit 29.6 % (37.5-50.1); Hemoglobin 9.3 g/dL (12.9-16.9); Immature Granulocytes % 0.4 % (0-4); Lymphocytes # 0.7 K/mcL (0.6-4.6); Lymphocytes % 14.1 %; Mean Corpuscular HGB Conc 31.4 g/dL (31.6-35.5); Mean Corpuscular Hemoglobin 28.2 pg (28.0-33.3); Mean Corpuscular Volume 89.7 fL (83.0-100.0); Mean Platelet Volume 10.1 fL (9.4-12.4); Monocytes # 0.5 K/mcL (0.0-1.3); Monocytes % 9.1 %; Neutrophils # 3.7 K/mcL (1.6-8.9); Platelet Count 168 K/mcL (140-400); Red Cell Distribution Width 15.3 % (11.5-14.5); Segmented Neutrophils % 71.4 %; White Blood Count 5.2 K/mcL (4.3-11.1)
[2020-07-07] MEDS ORDERED: Calcium Gluconate 1gm/50mL 1 GM/50 ML BAG IVPB ONE (17:10)
[2020-07-07 17:20] LABS: INR 1.3; Prothrombin Time 15.3 Seconds (9.4-12.1)
[2020-07-07 17:29] LABS: Magnesium 2.4 mg/dL (1.6-2.6); Phosphorous 10.1 mg/dL (2.7-4.5)
[2020-07-07 18:07] LABS: Hepatitis B Surface Antigen Nonreactive (Nonreactive)
[2020-07-07] MEDS ORDERED: Ipratropium/Albuterol Neb 3 ML IH PRN (18:19)
[2020-07-07] MEDS ORDERED: 0.9 % Sodium Chloride 1,000 ML ONE (18:23)
[2020-07-07] MEDS ORDERED: 0.9 % Sodium Chloride 250 ML IVC PRN (19:21)
[2020-07-07] MEDS ORDERED: 0.9 % Sodium Chloride 1,000 ML PRIME SCH (19:30)
[2020-07-07 23:41] LABS: Hepatitis C Virus Antibody Nonreactive (Nonreactive)
[2020-07-08 01:24] LABS: Calcium 9.5 mg/dL (8.6-10.3); Potassium 5.3 mEq/L (3.5-5.1)
[2020-07-08 04:58] LABS: Basophils % 0.8 %; Eosinophils # 0.3 K/mcL (0.0-0.6); Eosinophils % 6.4 %; Hematocrit 28.7 % (37.5-50.1); Hemoglobin 9.1 g/dL (12.9-16.9); Immature Granulocytes % 0.2 % (0-4); Lymphocytes % 21.1 %; Mean Corpuscular HGB Conc 31.7 g/dL (31.6-35.5); Mean Corpuscular Hemoglobin 28.3 pg (28.0-33.3); Mean Corpuscular Volume 89.1 fL (83.0-100.0); Mean Platelet Volume 9.6 fL (9.4-12.4); Monocytes # 0.4 K/mcL (0.0-1.3); Platelet Count 161 K/mcL (140-400); Red Blood Count 3.22 M/mcL (4.19-5.50); Red Cell Distribution Width 15.3 % (11.5-14.5); Segmented Neutrophils % 62.5 %; White Blood Count 4.9 K/mcL (4.3-11.1)
[2020-07-08 05:20] LABS: Calcium 9.5 mg/dL (8.6-10.3); Magnesium 2.1 mg/dL (1.6-2.6); Potassium 5.7 mEq/L (3.5-5.1)
[2020-07-08 05:43] LABS: Folate 7.9 ng/mL (3.0-16.0)
[2020-07-08] MEDS: *HR* Heparin 5,000 UNIT/ML VIAL SQ SCH ×2 (06:04→16:45)
[2020-07-08] MEDS ORDERED: 0.9 % Sodium Chloride 250 ML IVC PRN (07:02)
[2020-07-08] MEDS ORDERED: Cyanocobalamin (B-12) 1,000 MCG/ML VIAL SQ ONE (07:21)
[2020-07-08] MEDS: Acetaminophen 325 MG TABLET PO PRN ×2 (08:30→21:52)
[2020-07-08] MEDS: Nicotine 21 MG PATCH.TD24 TD SCH (08:31)
[2020-07-08 08:35] LABS: Calcium 9.6 mg/dL (8.6-10.3); Potassium 6.1 mEq/L (3.5-5.1)
[2020-07-08] MEDS: Gentamicin Oint 15 GM TUBE TP SCH (14:14)
[2020-07-08] MEDS: Ondansetron 4 MG/2 ML VIAL IVP PRN (14:14)
[2020-07-08] MEDS: *HR* OxyCODONE/APAP 5/325 TABLET PO PRN (16:45)
[2020-07-09 02:50] LABS: Eosinophils # 0.3 K/mcL (0.0-0.6); Eosinophils % 6.8 %; Hematocrit 29.4 % (37.5-50.1); Lymphocytes # 0.8 K/mcL (0.6-4.6); Lymphocytes % 21.1 %; Mean Corpuscular HGB Conc 30.6 g/dL (31.6-35.5); Mean Corpuscular Volume 91.3 fL (83.0-100.0); Mean Platelet Volume 9.7 fL (9.4-12.4); Monocytes # 0.4 K/mcL (0.0-1.3); Monocytes % 10.7 %; Neutrophils # 2.3 K/mcL (1.6-8.9); Platelet Count 144 K/mcL (140-400); Red Blood Count 3.22 M/mcL (4.19-5.50); Red Cell Distribution Width 15.2 % (11.5-14.5); Segmented Neutrophils % 60.4 %; White Blood Count 3.8 K/mcL (4.3-11.1)
[2020-07-09 03:10] LABS: Calcium 9.3 mg/dL (8.6-10.3); Potassium 5.1 mEq/L (3.5-5.1)
[2020-07-09] MEDS: *HR* OxyCODONE/APAP 5/325 TABLET PO PRN ×3 (03:35→20:28)
[2020-07-09] MEDS: *HR* Heparin 5,000 UNIT/ML VIAL SQ SCH ×2 (05:33→17:10)
[2020-07-09] MEDS: Metoprolol XL (24 HR) Succ 25 MG TAB.ER.24H PO SCH (09:18)
[2020-07-09] MEDS: Gentamicin Oint 15 GM TUBE TP SCH (09:18)
[2020-07-09] MEDS: Nicotine 21 MG PATCH.TD24 TD SCH (09:19)
[2020-07-09] MEDS: NIFEdipine XL (24 HR) 30 MG TAB.ER.24 PO SCH (17:10)
[2020-07-09] MEDS: Ondansetron 4 MG/2 ML VIAL IVP PRN (20:30)
[2020-07-10] MEDS: *HR* Heparin 5,000 UNIT/ML VIAL SQ SCH ×2 (05:08→16:09)
[2020-07-10 06:21] LABS: Basophils % 0.9 %; Eosinophils # 0.3 K/mcL (0.0-0.6); Eosinophils % 6.3 %; Hematocrit 29.5 % (37.5-50.1); Hemoglobin 8.9 g/dL (12.9-16.9); Immature Granulocytes % 0.2 % (0-4); Mean Corpuscular HGB Conc 30.2 g/dL (31.6-35.5); Mean Corpuscular Hemoglobin 27.7 pg (28.0-33.3); Mean Corpuscular Volume 91.9 fL (83.0-100.0); Mean Platelet Volume 10.3 fL (9.4-12.4); Monocytes # 0.4 K/mcL (0.0-1.3); Monocytes % 8.4 %; Neutrophils # 2.6 K/mcL (1.6-8.9); Platelet Count 151 K/mcL (140-400); Red Blood Count 3.21 M/mcL (4.19-5.50); Red Cell Distribution Width 15.2 % (11.5-14.5); Segmented Neutrophils % 60.2 %; White Blood Count 4.3 K/mcL (4.3-11.1)
[2020-07-10 06:45] LABS: Calcium 9.4 mg/dL (8.6-10.3); Magnesium 1.9 mg/dL (1.6-2.6); Potassium 5.4 mEq/L (3.5-5.1)
[2020-07-10] MEDS ORDERED: 0.9 % Sodium Chloride 250 ML IVC PRN (07:14)
[2020-07-10] MEDS: Nicotine 21 MG PATCH.TD24 TD SCH (10:35)
[2020-07-10] MEDS: Metoprolol XL (24 HR) Succ 25 MG TAB.ER.24H PO SCH (14:04)
[2020-07-10] MEDS: NIFEdipine XL (24 HR) 30 MG TAB.ER.24 PO SCH (14:04)
[2020-07-10] MEDS: *HR* OxyCODONE/APAP 5/325 TABLET PO PRN ×2 (14:04→23:52)
[2020-07-10] MEDS: Gentamicin Oint 15 GM TUBE TP SCH (14:05)
[2020-07-10] MEDS: Ondansetron 4 MG/2 ML VIAL IVP PRN (23:53)
[2020-07-11] MEDS: *HR* Heparin 5,000 UNIT/ML VIAL SQ SCH ×2 (04:52→17:30)
[2020-07-11 05:04] LABS: Basophils % 0.9 %; Eosinophils # 0.3 K/mcL (0.0-0.6); Eosinophils % 6.5 %; Hematocrit 31.1 % (37.5-50.1); Hemoglobin 9.3 g/dL (12.9-16.9); Immature Granulocytes % 0.2 % (0-4); Mean Corpuscular HGB Conc 29.9 g/dL (31.6-35.5); Mean Corpuscular Hemoglobin 27.6 pg (28.0-33.3); Mean Corpuscular Volume 92.3 fL (83.0-100.0); Mean Platelet Volume 10.2 fL (9.4-12.4); Monocytes # 0.4 K/mcL (0.0-1.3); Monocytes % 8.6 %; Neutrophils # 2.7 K/mcL (1.6-8.9); Platelet Count 146 K/mcL (140-400); Red Blood Count 3.37 M/mcL (4.19-5.50); Red Cell Distribution Width 15.2 % (11.5-14.5); Segmented Neutrophils % 60.8 %; White Blood Count 4.4 K/mcL (4.3-11.1)
[2020-07-11 05:16] LABS: Calcium 9.7 mg/dL (8.6-10.3); Potassium 4.9 mEq/L (3.5-5.1)
[2020-07-11] MEDS: NIFEdipine XL (24 HR) 30 MG TAB.ER.24 PO SCH (08:25)
[2020-07-11] MEDS: Metoprolol XL (24 HR) Succ 25 MG TAB.ER.24H PO SCH (08:26)
[2020-07-11] MEDS: Gentamicin Oint 15 GM TUBE TP SCH (08:27)
[2020-07-11] MEDS: Nicotine 21 MG PATCH.TD24 TD SCH (08:27)
[2020-07-11] MEDS: *HR* OxyCODONE/APAP 5/325 TABLET PO PRN ×2 (08:35→20:33)
[2020-07-12 01:20] LABS: Basophils % 0.7 %; Eosinophils # 0.3 K/mcL (0.0-0.6); Eosinophils % 7.5 %; Hematocrit 29.6 % (37.5-50.1); Immature Granulocytes % 0.2 % (0-4); Lymphocytes # 0.8 K/mcL (0.6-4.6); Lymphocytes % 19.7 %; Mean Corpuscular HGB Conc 30.4 g/dL (31.6-35.5); Mean Corpuscular Hemoglobin 27.4 pg (28.0-33.3); Mean Corpuscular Volume 90.2 fL (83.0-100.0); Mean Platelet Volume 9.7 fL (9.4-12.4); Monocytes # 0.4 K/mcL (0.0-1.3); Monocytes % 8.8 %; Neutrophils # 2.6 K/mcL (1.6-8.9); Platelet Count 132 K/mcL (140-400); Red Blood Count 3.28 M/mcL (4.19-5.50); Segmented Neutrophils % 63.1 %; White Blood Count 4.1 K/mcL (4.3-11.1)
[2020-07-12 01:43] LABS: Calcium 9.1 mg/dL (8.6-10.3); Potassium 5.4 mEq/L (3.5-5.1)
[2020-07-12] MEDS: *HR* Heparin 5,000 UNIT/ML VIAL SQ SCH ×2 (05:02→15:41)
[2020-07-12] MEDS: Ondansetron 4 MG/2 ML VIAL IVP PRN (05:31)
[2020-07-12] MEDS: Nicotine 21 MG PATCH.TD24 TD SCH (06:53)
[2020-07-12] MEDS: Metoprolol XL (24 HR) Succ 25 MG TAB.ER.24H PO SCH (07:04)
[2020-07-12] MEDS: *HR* OxyCODONE/APAP 5/325 TABLET PO PRN ×2 (07:04→16:08)
[2020-07-12] MEDS: Gentamicin Oint 15 GM TUBE TP SCH (07:06)
[2020-07-12] MEDS ORDERED: 0.9 % Sodium Chloride 250 ML IVC PRN (07:13)
[2020-07-12] MEDS: NIFEdipine XL (24 HR) 30 MG TAB.ER.24 PO SCH (10:24)
[2020-07-13] MEDS: *HR* OxyCODONE/APAP 5/325 TABLET PO PRN ×3 (00:21→15:51)
[2020-07-13 00:58] LABS: Basophils % 0.8 %; Eosinophils # 0.3 K/mcL (0.0-0.6); Eosinophils % 7.3 %; Hematocrit 30.7 % (37.5-50.1); Hemoglobin 9.5 g/dL (12.9-16.9); Immature Granulocytes % 0.3 % (0-4); Lymphocytes # 0.7 K/mcL (0.6-4.6); Lymphocytes % 17.1 %; Mean Corpuscular HGB Conc 30.9 g/dL (31.6-35.5); Mean Corpuscular Volume 90.6 fL (83.0-100.0); Monocytes # 0.4 K/mcL (0.0-1.3); Monocytes % 10.6 %; Neutrophils # 2.5 K/mcL (1.6-8.9); Platelet Count 126 K/mcL (140-400); Red Blood Count 3.39 M/mcL (4.19-5.50); Red Cell Distribution Width 15.1 % (11.5-14.5); Segmented Neutrophils % 63.9 %
[2020-07-13 01:17] LABS: Calcium 9.1 mg/dL (8.6-10.3); Potassium 4.8 mEq/L (3.5-5.1)
[2020-07-13] MEDS: Ondansetron 4 MG/2 ML VIAL IVP PRN ×2 (04:11→15:12)
[2020-07-13] MEDS: Acetaminophen 325 MG TABLET PO PRN (05:10)
[2020-07-13] MEDS: *HR* Heparin 5,000 UNIT/ML VIAL SQ SCH ×2 (05:12→15:28)
[2020-07-13] MEDS: Nicotine 21 MG PATCH.TD24 TD SCH (07:53)
[2020-07-13] MEDS: Metoprolol XL (24 HR) Succ 25 MG TAB.ER.24H PO SCH (08:02)
[2020-07-13] MEDS: Gentamicin Oint 15 GM TUBE TP SCH (08:03)
[2020-07-14] MEDS: *HR* OxyCODONE/APAP 5/325 TABLET PO PRN (00:20)
[2020-07-14 01:19] LABS: Basophils % 0.5 %; Eosinophils # 0.2 K/mcL (0.0-0.6); Eosinophils % 5.7 %; Hematocrit 31.5 % (37.5-50.1); Hemoglobin 9.7 g/dL (12.9-16.9); Immature Granulocytes % 0.3 % (0-4); Lymphocytes # 0.5 K/mcL (0.6-4.6); Lymphocytes % 12.3 %; Mean Corpuscular HGB Conc 30.8 g/dL (31.6-35.5); Mean Corpuscular Hemoglobin 27.6 pg (28.0-33.3); Mean Corpuscular Volume 89.5 fL (83.0-100.0); Mean Platelet Volume 9.7 fL (9.4-12.4); Monocytes # 0.3 K/mcL (0.0-1.3); Monocytes % 8.5 %; Neutrophils # 2.8 K/mcL (1.6-8.9); Platelet Count 123 K/mcL (140-400); Red Blood Count 3.52 M/mcL (4.19-5.50); Red Cell Distribution Width 15.1 % (11.5-14.5); Segmented Neutrophils % 72.7 %; White Blood Count 3.9 K/mcL (4.3-11.1)
[2020-07-14 01:29] LABS: Calcium 9.4 mg/dL (8.6-10.3); Phosphorous 6.8 mg/dL (2.7-4.5); Potassium 5.7 mEq/L (3.5-5.1)
[2020-07-14] MEDS: Ondansetron 4 MG/2 ML VIAL IVP PRN ×3 (04:05→23:55)
[2020-07-14] MEDS: *HR* Heparin 5,000 UNIT/ML VIAL SQ SCH ×2 (04:08→15:40)
[2020-07-14] MEDS ORDERED: 0.9 % Sodium Chloride 250 ML IVC PRN (06:33)
[2020-07-14] MEDS: Gentamicin Oint 15 GM TUBE TP SCH (07:46)
[2020-07-14] MEDS: Nicotine 21 MG PATCH.TD24 TD SCH (07:46)
[2020-07-14] MEDS: Metoprolol XL (24 HR) Succ 25 MG TAB.ER.24H PO SCH (15:43)
[2020-07-14] MEDS: Acetaminophen 325 MG TABLET PO PRN (15:44)
[2020-07-14] MEDS: levoFLOXacin 750 MG TABLET PO SCH (18:49)
[2020-07-15 02:38] LABS: Basophils % 0.4 %; Eosinophils % 1.3 %; Hemoglobin 9.7 g/dL (12.9-16.9); Lymphocytes # 0.3 K/mcL (0.6-4.6); Lymphocytes % 13.2 %; Mean Corpuscular HGB Conc 30.3 g/dL (31.6-35.5); Mean Corpuscular Hemoglobin 27.1 pg (28.0-33.3); Mean Corpuscular Volume 89.4 fL (83.0-100.0); Monocytes # 0.2 K/mcL (0.0-1.3); Monocytes % 10.6 %; Neutrophils # 1.7 K/mcL (1.6-8.9); Platelet Count 109 K/mcL (140-400); Red Blood Count 3.58 M/mcL (4.19-5.50); Red Cell Distribution Width 15.1 % (11.5-14.5); Segmented Neutrophils % 74.5 %; White Blood Count 2.3 K/mcL (4.3-11.1)
[2020-07-15 02:55] LABS: Calcium 9.4 mg/dL (8.6-10.3); Phosphorous 5.4 mg/dL (2.7-4.5); Potassium 5.1 mEq/L (3.5-5.1)
[2020-07-15] MEDS: Acetaminophen 325 MG TABLET PO PRN ×2 (03:12→09:49)
[2020-07-15] MEDS: polyethylene glycoL 3350 17 GM POWD.PACK PO PRN (03:13)
[2020-07-15] MEDS: *HR* Heparin 5,000 UNIT/ML VIAL SQ SCH ×2 (05:20→07:41)
[2020-07-15] MEDS: Nicotine 21 MG PATCH.TD24 TD SCH (07:41)
[2020-07-15] MEDS: Gentamicin Oint 15 GM TUBE TP SCH (07:46)
[2020-07-15] MEDS: Metoprolol XL (24 HR) Succ 25 MG TAB.ER.24H PO SCH (07:47)
[2020-07-15] MEDS: Ondansetron 4 MG/2 ML VIAL IVP PRN (07:47)
[2020-07-16] MEDS: Ondansetron 4 MG/2 ML VIAL IVP PRN (01:36)
[2020-07-16 03:28] LABS: Basophils % 0.6 %; Hemoglobin 9.2 g/dL (12.9-16.9)
[2020-07-16 03:30] LABS: Eosinophils % 0.6 %; Hematocrit 30.1 % (37.5-50.1); Immature Granulocytes % 0.6 % (0-4); Immature Platelets 3.6 % (1.1-6.1); Lymphocytes # 0.4 K/mcL (0.6-4.6); Mean Corpuscular HGB Conc 30.6 g/dL (31.6-35.5); Mean Corpuscular Hemoglobin 26.9 pg (28.0-33.3); Mean Platelet Volume 9.7 fL (9.4-12.4); Monocytes # 0.2 K/mcL (0.0-1.3); Red Blood Count 3.42 M/mcL (4.19-5.50); Red Cell Distribution Width 15.1 % (11.5-14.5); Segmented Neutrophils % 59.2 %; White Blood Count 1.7 K/mcL (4.3-11.1)
[2020-07-16 03:31] LABS: Platelet Count 96 K/mcL (140-400)
[2020-07-16 03:49] LABS: Calcium 8.9 mg/dL (8.6-10.3); Phosphorous 5.9 mg/dL (2.7-4.5); Potassium 5.3 mEq/L (3.5-5.1)
[2020-07-16] MEDS: *HR* Heparin 5,000 UNIT/ML VIAL SQ SCH ×2 (05:19→07:02)
[2020-07-16] MEDS: Nicotine 21 MG PATCH.TD24 TD SCH (07:13)
[2020-07-16] MEDS: Metoprolol XL (24 HR) Succ 25 MG TAB.ER.24H PO SCH (07:28)
[2020-07-16] MEDS: Acetaminophen 325 MG TABLET PO PRN (07:28)
[2020-07-16] MEDS: Gentamicin Oint 15 GM TUBE TP SCH (07:33)
[2020-07-16] MEDS: polyethylene glycoL 3350 17 GM POWD.PACK PO PRN (11:45)
[2020-07-16] MEDS: levoFLOXacin 750 MG TABLET PO SCH (16:48)
[2020-07-16] MEDS: polyethylene glycoL 3350 17 GM POWD.PACK PO SCH (22:16)
[2020-07-16] MEDS ORDERED: polyethylene glycoL 3350 17 GM POWD.PACK PO ONE (22:32)
[2020-07-17 03:32] LABS: Basophils % 0.4 %; Eosinophils # 0.1 K/mcL (0.0-0.6); Eosinophils % 4.8 %; Hemoglobin 9.1 g/dL (12.9-16.9); Immature Granulocytes % 0.4 % (0-4); Lymphocytes # 0.5 K/mcL (0.6-4.6); Lymphocytes % 20.6 %; Mean Corpuscular HGB Conc 30.3 g/dL (31.6-35.5); Mean Corpuscular Hemoglobin 26.7 pg (28.0-33.3); Mean Platelet Volume 10.6 fL (9.4-12.4); Monocytes # 0.4 K/mcL (0.0-1.3); Monocytes % 16.5 %; Neutrophils # 1.4 K/mcL (1.6-8.9); Platelet Count 107 K/mcL (140-400); Red Blood Count 3.41 M/mcL (4.19-5.50); Segmented Neutrophils % 57.3 %; White Blood Count 2.5 K/mcL (4.3-11.1)
[2020-07-17 03:45] LABS: Calcium 9.1 mg/dL (8.6-10.3); Phosphorous 6.6 mg/dL (2.7-4.5); Potassium 5.8 mEq/L (3.5-5.1)
[2020-07-17] MEDS: *HR* Heparin 5,000 UNIT/ML VIAL SQ SCH ×2 (04:54→17:09)
[2020-07-17] MEDS: Ondansetron 4 MG/2 ML VIAL IVP PRN (05:12)
[2020-07-17] MEDS: Gentamicin Oint 15 GM TUBE TP SCH (07:35)
[2020-07-17] MEDS: Acetaminophen 325 MG TABLET PO PRN (07:38)
[2020-07-17] MEDS ORDERED: *HR* Heparin 10,000 UNIT/10 ML VIAL IV PRN (07:49)
[2020-07-17] MEDS ORDERED: 0.9 % Sodium Chloride 250 ML IVC PRN (07:49)
[2020-07-17] MEDS: Nicotine 21 MG PATCH.TD24 TD SCH (11:05)
[2020-07-17 11:21] LABS: Activated Partial Thrombo Time 35.3 Seconds (26.0-36.0); INR 1.3; Prothrombin Time 14.6 Seconds (9.4-12.1)
[2020-07-17] MEDS: Metoprolol XL (24 HR) Succ 25 MG TAB.ER.24H PO SCH (13:29)
[2020-07-17] MEDS: polyethylene glycoL 3350 17 GM POWD.PACK PO SCH (17:09)
[2020-07-17] MEDS: *HR* OxyCODONE/APAP 5/325 TABLET PO PRN (20:28)
[2020-07-18 02:22] LABS: Basophils % 0.4 %; Eosinophils # 0.2 K/mcL (0.0-0.6); Eosinophils % 6.3 %; Hematocrit 29.2 % (37.5-50.1); Hemoglobin 8.7 g/dL (12.9-16.9); Immature Platelets 4.5 % (1.1-6.1); Lymphocytes # 0.6 K/mcL (0.6-4.6); Lymphocytes % 23.1 %; Mean Corpuscular HGB Conc 29.8 g/dL (31.6-35.5); Mean Corpuscular Hemoglobin 26.7 pg (28.0-33.3); Mean Corpuscular Volume 89.6 fL (83.0-100.0); Mean Platelet Volume 10.2 fL (9.4-12.4); Monocytes # 0.4 K/mcL (0.0-1.3); Neutrophils # 1.3 K/mcL (1.6-8.9); Nucleated Red Blood Cells 0.8 /100 WBC (0); Platelet Count 101 K/mcL (140-400); Red Blood Count 3.26 M/mcL (4.19-5.50); Red Cell Distribution Width 15.1 % (11.5-14.5); Segmented Neutrophils % 54.2 %; White Blood Count 2.4 K/mcL (4.3-11.1)
[2020-07-18 02:37] LABS: Calcium 8.7 mg/dL (8.6-10.3); Phosphorous 5.7 mg/dL (2.7-4.5); Potassium 4.9 mEq/L (3.5-5.1)
[2020-07-18] MEDS: *HR* Heparin 5,000 UNIT/ML VIAL SQ SCH (03:45)
[2020-07-18] MEDS: Gentamicin Oint 15 GM TUBE TP SCH (07:49)
[2020-07-18] MEDS: Metoprolol XL (24 HR) Succ 25 MG TAB.ER.24H PO SCH (07:49)
[2020-07-18] MEDS: polyethylene glycoL 3350 17 GM POWD.PACK PO SCH (07:49)
[2020-07-18] MEDS: Nicotine 21 MG PATCH.TD24 TD SCH (07:50)
[2020-07-18] MEDS ORDERED: Cyanocobalamin (B-12) 1,000 MCG/ML VIAL SQ SCH (09:00)
[2020-07-18 11:45] VITALS: BP 143/86
[2020-07-18] MEDS ORDERED: FLU Vac QV 20-21 (6Month+)/PF 0.5 ML SYRINGE IM ONE (12:14)
[2020-07-18] MEDS ORDERED: levoFLOXacin 500 MG TABLET PO SCH (18:00)
[2020-07-19] MEDS ORDERED: Cyanocobalamin (B-12) 1,000 MCG TABLET PO SCH (09:00)
== END 2020-07-18 14:07 | disposition home or self-care (01) | DRG 640 ==
LOC: 2ANU → SUATTDRO 15:40
PROVIDERS: ADMIT Pharmacist; ATTEND Internal Medicine

== ENCOUNTER 2020-10-21 21:41 | Inpatient (IN) ==
[2020-10-22] MEDS ORDERED: Naloxone 0.4 MG/ML INJ IVP PRN (01:29)
[2020-10-22] MEDS ORDERED: *HR* Labetalol 20 MG/4 ML SYRINGE IVP PRN (02:05)
[2020-10-22 05:17] LABS: Basophils # 0.1 K/mcL (0.0-0.2); Basophils % 1.1 %; Eosinophils # 0.2 K/mcL (0.0-0.6); Eosinophils % 4.3 %; Hematocrit 35.5 % (37.5-50.1); Immature Granulocytes % 0.2 % (0-4); Lymphocytes % 18.5 %; Mean Corpuscular Hemoglobin 27.7 pg (28.0-33.3); Mean Corpuscular Volume 89.4 fL (83.0-100.0); Mean Platelet Volume 10.6 fL (9.4-12.4); Monocytes # 0.4 K/mcL (0.0-1.3); Monocytes % 7.4 %; Neutrophils # 3.8 K/mcL (1.6-8.9); Platelet Count 157 K/mcL (140-400); Red Blood Count 3.97 M/mcL (4.19-5.50); Red Cell Distribution Width 15.3 % (11.5-14.5); Segmented Neutrophils % 68.5 %; White Blood Count 5.5 K/mcL (4.3-11.1)
[2020-10-22 05:24] LABS: INR 1.3; Prothrombin Time 15.4 Seconds (9.4-12.1)
[2020-10-22 05:32] LABS: Calcium 10.3 mg/dL (8.6-10.3); Magnesium 2.1 mg/dL (1.6-2.6); Potassium 5.4 mEq/L (3.5-5.1)
[2020-10-22] MEDS: Metoprolol XL (24 HR) Succ 25 MG TAB.ER.24H PO SCH (07:29)
[2020-10-22] MEDS: Ondansetron 4 MG/2 ML VIAL IVP PRN (10:34)
[2020-10-22] MEDS: Acetaminophen 325 MG TABLET PO PRN (19:30)
[2020-10-23 02:53] LABS: Basophils # 0.1 K/mcL (0.0-0.2); Basophils % 0.8 %; Eosinophils # 0.3 K/mcL (0.0-0.6); Eosinophils % 4.5 %; Hematocrit 37.5 % (37.5-50.1); Hemoglobin 11.4 g/dL (12.9-16.9); Immature Granulocytes % 0.3 % (0-4); Lymphocytes # 1.2 K/mcL (0.6-4.6); Lymphocytes % 17.5 %; Mean Corpuscular HGB Conc 30.4 g/dL (31.6-35.5); Mean Corpuscular Hemoglobin 27.5 pg (28.0-33.3); Mean Corpuscular Volume 90.6 fL (83.0-100.0); Mean Platelet Volume 10.6 fL (9.4-12.4); Monocytes # 0.7 K/mcL (0.0-1.3); Monocytes % 9.5 %; Neutrophils # 4.8 K/mcL (1.6-8.9); Platelet Count 177 K/mcL (140-400); Red Blood Count 4.14 M/mcL (4.19-5.50); Red Cell Distribution Width 15.2 % (11.5-14.5); Segmented Neutrophils % 67.4 %; White Blood Count 7.1 K/mcL (4.3-11.1)
[2020-10-23 03:24] LABS: Calcium 10.3 mg/dL (8.6-10.3); Magnesium 2.3 mg/dL (1.6-2.6); Phosphorous 9.9 mg/dL (2.7-4.5); Potassium 7.1 mEq/L (3.5-5.1)
[2020-10-23] MEDS ORDERED: *HR* Dextrose 50 % in Water (Vial) 50 ML VIAL IVP ONE (03:37)
[2020-10-23] MEDS ORDERED: Albuterol 2.5 MG/3 ML NEBULIZER IH ONE (03:42)
[2020-10-23] MEDS ORDERED: Insulin Human Regular 10 UNIT in 0.9 % Sodium Chloride 10 ML IV ONE (03:45)
[2020-10-23] MEDS ORDERED: 0.9 % Sodium Chloride 2,000 ML ONE (06:37)
[2020-10-23] MEDS ORDERED: 0.9 % Sodium Chloride 250 ML IVC PRN (07:34)
[2020-10-23] MEDS ORDERED: 0.9 % Sodium Chloride 1,000 ML PRIME SCH (07:45)
[2020-10-23 08:25] LABS: Hepatitis B Surface Antibody > 850.00 mIU/mL
[2020-10-23 08:36] LABS: Hepatitis B Surface Antigen Nonreactive (Nonreactive)
[2020-10-23] MEDS: Metoprolol XL (24 HR) Succ 25 MG TAB.ER.24H PO SCH (14:46)
[2020-10-23 17:12] LABS: Calcium 9.7 mg/dL (8.6-10.3); Potassium 4.6 mEq/L (3.5-5.1)
[2020-10-23] MEDS: *HR* Heparin 5,000 UNIT/ML VIAL SQ SCH (17:37)
[2020-10-24] MEDS: Acetaminophen 325 MG TABLET PO PRN (02:50)
[2020-10-24 04:06] LABS: Hematocrit 35.3 % (37.5-50.1); Hemoglobin 10.7 g/dL (12.9-16.9); Mean Corpuscular HGB Conc 30.3 g/dL (31.6-35.5); Mean Corpuscular Hemoglobin 27.2 pg (28.0-33.3); Mean Corpuscular Volume 89.8 fL (83.0-100.0); Mean Platelet Volume 10.4 fL (9.4-12.4); Platelet Count 155 K/mcL (140-400); Red Blood Count 3.93 M/mcL (4.19-5.50); Red Cell Distribution Width 15.3 % (11.5-14.5); White Blood Count 5.6 K/mcL (4.3-11.1)
[2020-10-24 04:12] LABS: Calcium 9.8 mg/dL (8.6-10.3); Magnesium 2.2 mg/dL (1.6-2.6); Phosphorous 8.1 mg/dL (2.7-4.5); Potassium 5.4 mEq/L (3.5-5.1)
[2020-10-24] MEDS: *HR* Heparin 5,000 UNIT/ML VIAL SQ SCH (05:12)
[2020-10-24] MEDS: Ondansetron 4 MG/2 ML VIAL IVP PRN (06:08)
[2020-10-24] MEDS: Metoprolol XL (24 HR) Succ 25 MG TAB.ER.24H PO SCH (07:31)
[2020-10-24] MEDS ORDERED: 0.9 % Sodium Chloride 250 ML IVC PRN (07:35)
[2020-10-24] MEDS ORDERED: Ondansetron 4 MG/2 ML VIAL IVP ONE (10:59)
[2020-10-24 13:24] VITALS: BP 136/91
== END 2020-10-24 17:46 | disposition home or self-care (01) | DRG 291 ==
LOC: 2ANU → SUATTDRO 10-22 00:29
PROVIDERS: ADMIT Family Medicine; ATTEND Internal Medicine

== ENCOUNTER 2020-12-23 14:25 | Observation (INO) ==
[2020-12-24] MEDS: *HR* Heparin 5,000 UNIT/ML VIAL SQ SCH ×4 (06:01→20:07)
[2020-12-24 06:56] LABS: Basophils # 0.1 K/mcL (0.0-0.2); Basophils % 1.3 %; Eosinophils # 0.4 K/mcL (0.0-0.6); Eosinophils % 6.1 %; Hematocrit 38.1 % (37.5-50.1); Hemoglobin 11.8 g/dL (12.9-16.9); Immature Granulocytes % 0.3 % (0-4); Lymphocytes # 1.1 K/mcL (0.6-4.6); Lymphocytes % 18.3 %; Mean Corpuscular Hemoglobin 28.4 pg (28.0-33.3); Mean Corpuscular Volume 91.8 fL (83.0-100.0); Mean Platelet Volume 9.9 fL (9.4-12.4); Monocytes # 0.4 K/mcL (0.0-1.3); Monocytes % 7.1 %; Neutrophils # 4.1 K/mcL (1.6-8.9); Platelet Count 171 K/mcL (140-400); Red Blood Count 4.15 M/mcL (4.19-5.50); Red Cell Distribution Width 15.9 % (11.5-14.5); Segmented Neutrophils % 66.9 %; White Blood Count 6.1 K/mcL (4.3-11.1)
[2020-12-24 07:04] LABS: INR 1.2; Prothrombin Time 14.2 Seconds (9.4-12.1)
[2020-12-24 07:17] LABS: Alanine Aminotransferase < 3 Units/L (7-52); Albumin 3.2 g/dL (3.5-5.7); Alkaline Phosphatase 389 Units/L (34-104); Aspartate Amino Transferase 7 Units/L (13-39); BUN/Creatinine Ratio 6 (6-26); Bilirubin,Total 0.4 mg/dL (0.3-1.0); Blood Urea Nitrogen 49 mg/dL (6-20); Calcium 9.5 mg/dL (8.6-10.3); Carbon Dioxide 24 mEq/L (23-29); Chloride 97 mEq/L (98-107); Globulin 3.3 g/dL (2.4-3.5); Glucose 118 mg/dL (70-105); Osmolality,Calculated 294 (280-300); Potassium 4.9 mEq/L (3.5-5.1); Sodium 135 mEq/L (136-145); Total Protein 6.5 g/dL (6.4-8.9); eGFR For African Americans 9 (> 60); eGFR For Non-African Americans 7 (> 60)
[2020-12-24] MEDS ORDERED: Ondansetron 4 MG/2 ML VIAL IVP PRN (07:31)
[2020-12-24] MEDS ORDERED: Naloxone 0.4 MG/ML INJ IVP PRN (07:31)
[2020-12-24] MEDS ORDERED: Acetaminophen 325 MG TABLET PO PRN (23:48)
[2020-12-25 03:34] LABS: Basophils % 0.6 %; Eosinophils # 0.3 K/mcL (0.0-0.6); Eosinophils % 3.7 %; Hematocrit 33.6 % (37.5-50.1); Immature Granulocytes % 0.3 % (0-4); Lymphocytes # 0.8 K/mcL (0.6-4.6); Lymphocytes % 12.5 %; Mean Corpuscular HGB Conc 30.4 g/dL (31.6-35.5); Mean Corpuscular Hemoglobin 28.3 pg (28.0-33.3); Mean Corpuscular Volume 93.1 fL (83.0-100.0); Monocytes # 0.5 K/mcL (0.0-1.3); Platelet Count 159 K/mcL (140-400); Red Blood Count 3.61 M/mcL (4.19-5.50); Red Cell Distribution Width 15.8 % (11.5-14.5); Segmented Neutrophils % 74.9 %; White Blood Count 6.7 K/mcL (4.3-11.1)
[2020-12-25 03:35] LABS: Hemoglobin 10.2 g/dL (12.9-16.9)
[2020-12-25 03:54] LABS: Calcium 9.2 mg/dL (8.6-10.3); Potassium 4.9 mEq/L (3.5-5.1)
[2020-12-25] MEDS: *HR* Heparin 5,000 UNIT/ML VIAL SQ SCH ×2 (05:35→13:57)
[2020-12-25] MEDS ORDERED: 0.9 % Sodium Chloride 2,000 ML ONE (06:58)
[2020-12-25] MEDS ORDERED: 0.9 % Sodium Chloride 250 ML IVC PRN (07:49)
[2020-12-25] MEDS ORDERED: 0.9 % Sodium Chloride 1,000 ML PRIME SCH (08:00)
[2020-12-25] MEDS ORDERED: Metoprolol XL (24 HR) Succ 25 MG TAB.ER.24H PO SCH (09:00)
[2020-12-25] MEDS ORDERED: Aspirin Enteric Coated 81 MG Tablet PO SCH (09:00)
[2020-12-25 16:40] VITALS: BP 146/86
== END 2020-12-25 19:46 | disposition home or self-care (01) ==
LOC: 2ANU → SUATTDRO 23:38
PROVIDERS: ADMIT General Practice; ATTEND Internal Medicine

== ENCOUNTER 2021-01-15 20:47 | Inpatient (IN) ==
[2021-01-16] MEDS ORDERED: Melatonin 3 MG TABLET PO PRN (05:29)
[2021-01-16] MEDS ORDERED: Ondansetron 4 MG/2 ML VIAL IVP PRN (05:29)
[2021-01-16] MEDS ORDERED: Naloxone 0.4 MG/ML INJ IVP PRN (05:29)
[2021-01-16] MEDS ORDERED: Acetaminophen 325 MG TABLET PO PRN (05:29)
[2021-01-16] MEDS ORDERED: *HR* Promethazine 25 MG/ML VIAL IM PRN (05:29)
[2021-01-16] MEDS ORDERED: *HR* HYDROcodone/Acet 5/325 mg TABLET PO ONE (06:25)
[2021-01-16 06:27] LABS: Basophils # 0.1 K/mcL (0.0-0.2); Basophils % 0.9 %; Eosinophils # 0.2 K/mcL (0.0-0.6); Eosinophils % 2.2 %; Hematocrit 31.3 % (37.5-50.1); Hemoglobin 9.6 g/dL (12.9-16.9); Immature Granulocytes % 0.3 % (0-4); Lymphocytes # 0.7 K/mcL (0.6-4.6); Lymphocytes % 10.7 %; Mean Corpuscular HGB Conc 30.7 g/dL (31.6-35.5); Mean Corpuscular Hemoglobin 27.7 pg (28.0-33.3); Mean Corpuscular Volume 90.2 fL (83.0-100.0); Mean Platelet Volume 9.8 fL (9.4-12.4); Monocytes # 0.5 K/mcL (0.0-1.3); Monocytes % 6.8 %; Neutrophils # 5.5 K/mcL (1.6-8.9); Platelet Count 231 K/mcL (140-400); Red Blood Count 3.47 M/mcL (4.19-5.50); Red Cell Distribution Width 15.2 % (11.5-14.5); Segmented Neutrophils % 79.1 %; White Blood Count 6.9 K/mcL (4.3-11.1)
[2021-01-16 06:32] LABS: INR 1.4
[2021-01-16 06:49] LABS: Potassium 5.6 mEq/L (3.5-5.1)
[2021-01-16] MEDS ORDERED: 0.9 % Sodium Chloride 250 ML IVC PRN (07:27)
[2021-01-16] MEDS ORDERED: 0.9 % Sodium Chloride 1,000 ML PRIME SCH (07:30)
[2021-01-16] MEDS: Aspirin Enteric Coated 81 MG Tablet PO SCH (07:35)
[2021-01-16] MEDS: Metoprolol XL (24 HR) Succ 25 MG TAB.ER.24H PO SCH (07:35)
[2021-01-16] MEDS ORDERED: *HR* Heparin 10,000 UNIT/10 ML VIAL ONE (10:44)
[2021-01-16] MEDS: *HR* Heparin 5,000 UNIT/ML VIAL SQ SCH ×2 (12:31→21:14)
[2021-01-17 02:24] LABS: Basophils % 0.5 %; Eosinophils # 0.2 K/mcL (0.0-0.6); Eosinophils % 3.1 %; Hematocrit 28.9 % (37.5-50.1); Immature Granulocytes % 0.3 % (0-4); Lymphocytes # 0.8 K/mcL (0.6-4.6); Lymphocytes % 13.3 %; Mean Corpuscular HGB Conc 31.1 g/dL (31.6-35.5); Mean Corpuscular Hemoglobin 28.8 pg (28.0-33.3); Mean Corpuscular Volume 92.3 fL (83.0-100.0); Mean Platelet Volume 9.8 fL (9.4-12.4); Monocytes # 0.5 K/mcL (0.0-1.3); Monocytes % 9.4 %; Neutrophils # 4.2 K/mcL (1.6-8.9); Platelet Count 199 K/mcL (140-400); Red Blood Count 3.13 M/mcL (4.19-5.50); Segmented Neutrophils % 73.4 %; White Blood Count 5.7 K/mcL (4.3-11.1)
[2021-01-17 02:43] LABS: Calcium 8.5 mg/dL (8.6-10.3); Potassium 5.1 mEq/L (3.5-5.1)
[2021-01-17] MEDS: *HR* Heparin 5,000 UNIT/ML VIAL SQ SCH ×3 (05:29→20:07)
[2021-01-17] MEDS ORDERED: 0.9 % Sodium Chloride 250 ML IVC PRN (07:22)
[2021-01-17] MEDS ORDERED: *HR* Heparin 10,000 UNIT/10 ML VIAL IV PRN (07:22)
[2021-01-17] MEDS ORDERED: 0.9 % Sodium Chloride 1,000 ML PRIME SCH (07:30)
[2021-01-17] MEDS: Aspirin Enteric Coated 81 MG Tablet PO SCH (07:36)
[2021-01-17] MEDS: Renal Vitamin 1 CAP CAPSULE PO SCH (07:36)
[2021-01-17] MEDS: Metoprolol XL (24 HR) Succ 25 MG TAB.ER.24H PO SCH (14:30)
[2021-01-18] MEDS ORDERED: polyethylene glycoL 3350 17 GM POWD.PACK PO PRN (00:24)
[2021-01-18 02:58] LABS: Hemoglobin 9.4 g/dL (12.9-16.9); Mean Corpuscular HGB Conc 30.3 g/dL (31.6-35.5); Mean Corpuscular Hemoglobin 28.7 pg (28.0-33.3); Mean Corpuscular Volume 94.5 fL (83.0-100.0); Mean Platelet Volume 9.5 fL (9.4-12.4); Platelet Count 215 K/mcL (140-400); Red Blood Count 3.28 M/mcL (4.19-5.50); White Blood Count 7.1 K/mcL (4.3-11.1)
[2021-01-18 03:19] LABS: Calcium 8.7 mg/dL (8.6-10.3); Potassium 4.7 mEq/L (3.5-5.1)
[2021-01-18] MEDS: *HR* Heparin 5,000 UNIT/ML VIAL SQ SCH ×3 (05:20→21:17)
[2021-01-18] MEDS: Metoprolol XL (24 HR) Succ 25 MG TAB.ER.24H PO SCH (08:29)
[2021-01-18] MEDS: Renal Vitamin 1 CAP CAPSULE PO SCH (08:29)
[2021-01-18] MEDS: Aspirin Enteric Coated 81 MG Tablet PO SCH (08:30)
[2021-01-18] MEDS ORDERED: Simethicone 80 MG TAB.CHEW PO PRN (10:56)
[2021-01-19] MEDS ORDERED: Acetaminophen IV 1,000 MG/100 ML BAG IVPB ONE (03:00)
[2021-01-19] MEDS: *HR* Heparin 5,000 UNIT/ML VIAL SQ SCH ×2 (05:10→15:29)
[2021-01-19 05:45] LABS: Potassium 5.4 mEq/L (3.5-5.1)
[2021-01-19] MEDS ORDERED: *HR* Heparin 10,000 UNIT/10 ML VIAL IV PRN (07:17)
[2021-01-19] MEDS ORDERED: 0.9 % Sodium Chloride 250 ML IVC PRN (07:17)
[2021-01-19] MEDS ORDERED: 0.9 % Sodium Chloride 1,000 ML PRIME SCH (07:30)
[2021-01-19] MEDS: Renal Vitamin 1 CAP CAPSULE PO SCH (07:39)
[2021-01-19] MEDS: Aspirin Enteric Coated 81 MG Tablet PO SCH (07:39)
[2021-01-19 09:02] LABS: Basophils # 0.1 K/mcL (0.0-0.2); Basophils % 1.2 %; Eosinophils # 0.3 K/mcL (0.0-0.6); Eosinophils % 4.3 %; Hematocrit 28.7 % (37.5-50.1); Hemoglobin 8.6 g/dL (12.9-16.9); Immature Granulocytes % 0.3 % (0-4); Lymphocytes # 0.7 K/mcL (0.6-4.6); Lymphocytes % 12.5 %; Mean Corpuscular Hemoglobin 27.8 pg (28.0-33.3); Mean Corpuscular Volume 92.9 fL (83.0-100.0); Mean Platelet Volume 9.6 fL (9.4-12.4); Monocytes # 0.5 K/mcL (0.0-1.3); Neutrophils # 4.2 K/mcL (1.6-8.9); Platelet Count 193 K/mcL (140-400); Red Blood Count 3.09 M/mcL (4.19-5.50); Red Cell Distribution Width 15.3 % (11.5-14.5); Segmented Neutrophils % 72.7 %; White Blood Count 5.8 K/mcL (4.3-11.1)
[2021-01-19 11:40] VITALS: BP 118/59
[2021-01-19] MEDS: Metoprolol XL (24 HR) Succ 25 MG TAB.ER.24H PO SCH (12:09)
== END 2021-01-19 16:30 | DRG 291 ==
LOC: 2ANU → SUATTDRO 01-16 04:50 → 2ANU 01-18 11:45 → 3BNU 01-19 01:12
PROVIDERS: ADMIT Family Medicine; ATTEND General Practice

== ENCOUNTER 2021-07-20 16:40 | Inpatient (IN) ==
[2021-07-21] MEDS ORDERED: Naloxone 0.4 MG/ML INJ IVP PRN (05:03)
[2021-07-21] MEDS ORDERED: Ondansetron 4 MG/2 ML VIAL IVP PRN (05:03)
[2021-07-21 06:15] LABS: Calcium 9.3 mg/dL (8.6-10.3); Potassium 4.7 mEq/L (3.5-5.1)
[2021-07-21 06:16] LABS: Basophils % 0.6 %; Eosinophils # 0.2 K/mcL (0.0-0.6); Eosinophils % 2.9 %; Hematocrit 33.7 % (37.5-50.1); Hemoglobin 10.4 g/dL (12.9-16.9); Immature Granulocytes % 0.3 % (0-4); Lymphocytes % 15.3 %; Mean Corpuscular HGB Conc 30.9 g/dL (31.6-35.5); Mean Corpuscular Hemoglobin 30.1 pg (28.0-33.3); Mean Corpuscular Volume 97.7 fL (83.0-100.0); Mean Platelet Volume 10.2 fL (9.4-12.4); Monocytes # 0.6 K/mcL (0.0-1.3); Monocytes % 8.5 %; Neutrophils # 4.8 K/mcL (1.6-8.9); Platelet Count 182 K/mcL (140-400); Red Blood Count 3.45 M/mcL (4.19-5.50); Red Cell Distribution Width 17.1 % (11.5-14.5); Segmented Neutrophils % 72.4 %; White Blood Count 6.6 K/mcL (4.3-11.1)
[2021-07-21 06:18] LABS: Magnesium 2.1 mg/dL (1.6-2.6)
[2021-07-21 06:20] LABS: Troponin I 0.04 ng/mL (< 0.04)
[2021-07-21 06:26] LABS: INR 1.3; Prothrombin Time 14.7 Seconds (9.4-12.1)
[2021-07-21] MEDS ORDERED: 0.9 % Sodium Chloride 250 ML IVC PRN (08:32)
[2021-07-21 12:31] LABS: Troponin I 0.04 ng/mL (< 0.04)
[2021-07-21 14:07] LABS: Albumin 3.2 g/dL (3.5-5.7)
[2021-07-21] MEDS: Albumin 25% 25gram/100mL 25 GM/100 ML IV.SOLN IVPB SCH ×2 (14:48→20:14)
[2021-07-21 17:06] LABS: Appearance of Peritoneal Fl HAZY (Clear)
[2021-07-21 17:09] LABS: RBC,Peritoneal Fluid < 2000 RBC/mcL
[2021-07-21 17:23] LABS: Total Protein,Peritoneal Fluid 3.9 g/dL
[2021-07-21] MEDS ORDERED: Nitroglycerin 0.4 MG TAB.SUBL SL PRN (17:36)
[2021-07-21] MEDS: SODIUM ZIRCONIUM CYCLOSILICATE 5 GM POWD.PACK PO SCH (18:04)
[2021-07-21] MEDS: Gabapentin 100 MG CAPSULE PO SCH (20:14)
[2021-07-21] MEDS: *HR* Heparin 5,000 UNIT/ML VIAL SQ SCH (20:14)
[2021-07-22 04:39] LABS: Basophils % 0.5 %; Eosinophils # 0.2 K/mcL (0.0-0.6); Eosinophils % 3.1 %; Hemoglobin 10.4 g/dL (12.9-16.9); Immature Granulocytes % 0.3 % (0-4); Lymphocytes # 0.8 K/mcL (0.6-4.6); Lymphocytes % 12.9 %; Mean Corpuscular HGB Conc 31.5 g/dL (31.6-35.5); Mean Corpuscular Hemoglobin 30.4 pg (28.0-33.3); Mean Corpuscular Volume 96.5 fL (83.0-100.0); Mean Platelet Volume 10.4 fL (9.4-12.4); Monocytes # 0.6 K/mcL (0.0-1.3); Monocytes % 9.9 %; Neutrophils # 4.8 K/mcL (1.6-8.9); Platelet Count 164 K/mcL (140-400); Red Blood Count 3.42 M/mcL (4.19-5.50); Red Cell Distribution Width 16.9 % (11.5-14.5); Segmented Neutrophils % 73.3 %; White Blood Count 6.5 K/mcL (4.3-11.1)
[2021-07-22 05:00] LABS: Albumin 3.1 g/dL (3.5-5.7); Albumin/Globulin Ratio 1.1 (1.1-2.2); Bilirubin,Direct 0.1 mg/dL (0.0-0.2); Bilirubin,Indirect 0.4 mg/dL (0.0-1.0); Bilirubin,Total 0.5 mg/dL (0.3-1.0); Calcium 9.3 mg/dL (8.6-10.3); Globulin 2.9 g/dL (2.4-3.5); Magnesium 2.1 mg/dL (1.6-2.6); Phosphorous 7.8 mg/dL (2.7-4.5); Potassium 5.1 mEq/L (3.5-5.1)
[2021-07-22] MEDS: *HR* Heparin 5,000 UNIT/ML VIAL SQ SCH ×3 (05:20→21:12)
[2021-07-22] MEDS: Albumin 25% 25gram/100mL 25 GM/100 ML IV.SOLN IVPB SCH (05:20)
[2021-07-22 05:24] LABS: Folate 10.1 ng/mL (3.0-16.0)
[2021-07-22] MEDS: Gabapentin 100 MG CAPSULE PO SCH ×2 (08:47→21:12)
[2021-07-22] MEDS: Cholecalciferol (D-3) 1,000 UNIT (25MCG) TABLET PO SCH (08:47)
[2021-07-22] MEDS: Multivit/Ca/Min/Fe/FA 1 TAB TABLET PO SCH (08:47)
[2021-07-22] MEDS: Aspirin Enteric Coated 81 MG Tablet PO SCH (08:47)
[2021-07-22] MEDS: amLODIPine 5 MG TABLET PO SCH (08:48)
[2021-07-22] MEDS: SODIUM ZIRCONIUM CYCLOSILICATE 5 GM POWD.PACK PO SCH (16:41)
[2021-07-23 02:34] LABS: Basophils % 0.5 %; Eosinophils # 0.3 K/mcL (0.0-0.6); Hematocrit 34.5 % (37.5-50.1); Hemoglobin 10.8 g/dL (12.9-16.9); Immature Granulocytes % 0.1 % (0-4); Lymphocytes # 1.1 K/mcL (0.6-4.6); Lymphocytes % 14.5 %; Mean Corpuscular HGB Conc 31.3 g/dL (31.6-35.5); Mean Corpuscular Hemoglobin 30.3 pg (28.0-33.3); Mean Corpuscular Volume 96.6 fL (83.0-100.0); Mean Platelet Volume 10.5 fL (9.4-12.4); Monocytes # 0.6 K/mcL (0.0-1.3); Monocytes % 8.4 %; Neutrophils # 5.5 K/mcL (1.6-8.9); Platelet Count 174 K/mcL (140-400); Red Blood Count 3.57 M/mcL (4.19-5.50); Red Cell Distribution Width 16.8 % (11.5-14.5); Segmented Neutrophils % 72.5 %; White Blood Count 7.6 K/mcL (4.3-11.1)
[2021-07-23 02:50] LABS: Calcium 9.3 mg/dL (8.6-10.3); Magnesium 2.1 mg/dL (1.6-2.6); Potassium 5.6 mEq/L (3.5-5.1)
[2021-07-23] MEDS: *HR* Heparin 5,000 UNIT/ML VIAL SQ SCH ×3 (05:19→20:21)
[2021-07-23] MEDS: Aspirin Enteric Coated 81 MG Tablet PO SCH (08:04)
[2021-07-23] MEDS: Multivit/Ca/Min/Fe/FA 1 TAB TABLET PO SCH (08:04)
[2021-07-23] MEDS: Gabapentin 100 MG CAPSULE PO SCH ×2 (08:04→20:20)
[2021-07-23] MEDS: amLODIPine 5 MG TABLET PO SCH (08:04)
[2021-07-23] MEDS: Cholecalciferol (D-3) 1,000 UNIT (25MCG) TABLET PO SCH (08:04)
[2021-07-23] MEDS ORDERED: 0.9 % Sodium Chloride 250 ML IVC PRN (11:36)
[2021-07-23] MEDS ORDERED: 0.9 % Sodium Chloride 1,000 ML PRIME SCH (11:45)
[2021-07-24] MEDS: *HR* Heparin 5,000 UNIT/ML VIAL SQ SCH (05:07)
[2021-07-24 08:06] VITALS: BP 117/76; PULSE 120; TEMP 97.7; O2SAT 94
[2021-07-24] MEDS: amLODIPine 5 MG TABLET PO SCH (10:18)
[2021-07-24] MEDS: Cholecalciferol (D-3) 1,000 UNIT (25MCG) TABLET PO SCH (10:18)
[2021-07-24] MEDS: Multivit/Ca/Min/Fe/FA 1 TAB TABLET PO SCH (10:18)
[2021-07-24] MEDS: Aspirin Enteric Coated 81 MG Tablet PO SCH (10:18)
[2021-07-24] MEDS: Gabapentin 100 MG CAPSULE PO SCH (10:19)
[2021-07-24 11:24] LABS: Adenovirus Not Detected (Not Detect); Bordetella Pertussis Not Detected (Not Detect); Chlamydophila pneumoniae Not Detected (Not Detect); Coronavirus 229E Not Detected (Not Detect); Coronavirus HKU1 Not Detected (Not Detect); Coronavirus NL63 Not Detected (Not Detect); Coronavirus OC43 Not Detected (Not Detect); Human Metapneumovirus Not Detected (Not Detect); Human Rhinovirus/Enterovirus Not Detected (Not Detect); Influenza A Subtype 2009 H1 Not Detected (Not Detect); Influenza B Not Detected (Not Detect); Mycoplasma pneumoniae Not Detected (Not Detect); Parainfluenza Virus 1 Not Detected (Not Detect); Parainfluenza Virus 2 Not Detected (Not Detect); Parainfluenza Virus 3 Not Detected (Not Detect); Parainfluenza Virus 4 Not Detected (Not Detect); Respiratory Syncytial Virus Not Detected (Not Detect); SARS-CoV-2 Not Detected (Not Detect)
[2021-07-24 19:07] LABS: Fluid Source for Albumin PERIT/ASCITES
== END 2021-07-24 12:38 | disposition home or self-care (01) | DRG 683 ==
LOC: 2ANU → SUATTDRO 07-21 05:24
PROVIDERS: ADMIT Internal Medicine; ATTEND Pharmacist

== ENCOUNTER 2021-08-30 13:40 | Inpatient (IN) ==
[2021-08-30 14:20] LABS: Basophils # 0.1 K/mcL (0.0-0.2); Basophils % 0.5 %; Eosinophils # 0.1 K/mcL (0.0-0.6); Hemoglobin 12.5 g/dL (12.9-16.9); Immature Granulocytes % 0.3 % (0-4); Lymphocytes # 0.7 K/mcL (0.6-4.6); Lymphocytes % 7.4 %; Mean Corpuscular HGB Conc 30.5 g/dL (31.6-35.5); Mean Corpuscular Hemoglobin 30.3 pg (28.0-33.3); Mean Corpuscular Volume 99.3 fL (83.0-100.0); Mean Platelet Volume 9.9 fL (9.4-12.4); Monocytes # 0.8 K/mcL (0.0-1.3); Monocytes % 8.2 %; Neutrophils # 8.2 K/mcL (1.6-8.9); Platelet Count 187 K/mcL (140-400); Red Blood Count 4.13 M/mcL (4.19-5.50); Red Cell Distribution Width 16.8 % (11.5-14.5); Segmented Neutrophils % 82.6 %; White Blood Count 9.9 K/mcL (4.3-11.1)
[2021-08-30 14:40] LABS: Calcium 8.3 mg/dL (8.6-10.3)
[2021-08-30 14:47] LABS: Troponin I 0.04 ng/mL (< 0.04)
[2021-08-30] MEDS: DilTIAZem 125 MG in D5% in Water 100 ML IVC SCH (15:02)
[2021-08-30] MEDS ORDERED: Insulin Human Regular 10 UNIT in 0.9 % Sodium Chloride 10 ML IV ONE (15:23)
[2021-08-30] MEDS ORDERED: *HR* Dextrose 50 % in Water (Syg) 50 ML SYRINGE IVP ONE (15:23)
[2021-08-30] MEDS ORDERED: Calcium Gluconate 1,000 MG/10 ML VIAL IVP STA (15:23)
[2021-08-30] MEDS ORDERED: Isovue-370 500 ML BOTTLE IVP ONE (15:49)
[2021-08-30] MEDS ORDERED: *HR* Metoprolol 5 MG/5 ML VIAL IVP PRN (16:31)
[2021-08-30] MEDS ORDERED: Ondansetron 4 MG/2 ML VIAL IVP PRN (16:32)
[2021-08-30] MEDS ORDERED: Naloxone 0.4 MG/ML INJ IVP PRN (16:32)
[2021-08-30] MEDS ORDERED: Perflutren Lipid Microsphere 1.3 ML in 0.9 % Sodium Chloride 8.7 ML IVP PRN (16:44)
[2021-08-30] MEDS ORDERED: Nitroglycerin 0.4 MG TAB.SUBL SL PRN (17:02)
[2021-08-30] MEDS: Metoprolol XL (24 HR) Succ 50 MG TAB.ER.24H PO SCH (22:07)
[2021-08-30] MEDS: Apixaban 5 MG TABLET PO SCH (22:07)
[2021-08-30] MEDS: Gabapentin 100 MG CAPSULE PO SCH (22:07)
[2021-08-31 01:16] LABS: Basophils # 0.1 K/mcL (0.0-0.2); Basophils % 0.6 %; Eosinophils # 0.1 K/mcL (0.0-0.6); Eosinophils % 1.3 %; Hematocrit 37.6 % (37.5-50.1); Immature Granulocytes % 0.2 % (0-4); Lymphocytes # 1.1 K/mcL (0.6-4.6); Mean Corpuscular HGB Conc 31.9 g/dL (31.6-35.5); Mean Corpuscular Hemoglobin 31.6 pg (28.0-33.3); Mean Corpuscular Volume 98.9 fL (83.0-100.0); Mean Platelet Volume 10.1 fL (9.4-12.4); Monocytes # 0.9 K/mcL (0.0-1.3); Monocytes % 10.1 %; Neutrophils # 6.6 K/mcL (1.6-8.9); Platelet Count 184 K/mcL (140-400); Red Cell Distribution Width 16.8 % (11.5-14.5); Segmented Neutrophils % 75.8 %; White Blood Count 8.7 K/mcL (4.3-11.1)
[2021-08-31 01:20] LABS: Calcium 8.4 mg/dL (8.6-10.3); Chol/HDL Ratio 4.6 (0-4.9); Potassium 5.5 mEq/L (3.5-5.1)
[2021-08-31 01:21] LABS: Troponin I 0.03 ng/mL (< 0.04)
[2021-08-31] MEDS ORDERED: Albumin 25% 25gram/100mL 25 GM/100 ML IV.SOLN IVPB ONE (01:33)
[2021-08-31] MEDS: DilTIAZem 125 MG in D5% in Water 100 ML IVC SCH (01:54)
[2021-08-31] MEDS: Acetaminophen 325 MG TABLET PO PRN ×2 (02:15→20:08)
[2021-08-31] MEDS: amLODIPine 5 MG TABLET PO SCH ×2 (03:27→12:40)
[2021-08-31] MEDS: SODIUM ZIRCONIUM CYCLOSILICATE 5 GM POWD.PACK PO SCH (03:27)
[2021-08-31] MEDS ORDERED: *HR* Metoprolol 5 MG/5 ML VIAL IVP ONE (05:07)
[2021-08-31] MEDS ORDERED: Albumin 25% 25gram/100mL 25 GM/100 ML IV.SOLN IVPB PRN (07:23)
[2021-08-31] MEDS ORDERED: 0.9 % Sodium Chloride 250 ML IVC PRN (07:23)
[2021-08-31] MEDS ORDERED: 0.9 % Sodium Chloride 1,000 ML PRIME SCH (07:30)
[2021-08-31] MEDS: Aspirin Enteric Coated 81 MG Tablet PO SCH (12:10)
[2021-08-31] MEDS: Gabapentin 100 MG CAPSULE PO SCH ×2 (12:37→20:09)
[2021-08-31] MEDS: Apixaban 5 MG TABLET PO SCH ×2 (12:37→20:09)
[2021-08-31] MEDS: Multivit/Ca/Min/Fe/FA 1 TAB TABLET PO SCH (12:40)
[2021-08-31] MEDS: Metoprolol XL (24 HR) Succ 50 MG TAB.ER.24H PO SCH ×2 (12:40→20:12)
[2021-08-31] MEDS: Cholecalciferol (D-3) 1,000 UNIT (25MCG) TABLET PO SCH (12:40)
[2021-08-31 16:32] LABS: Total Protein,Peritoneal Fluid 3.1 g/dL
[2021-08-31 17:09] LABS: RBC,Peritoneal Fluid < 2000 RBC/mcL
[2021-08-31 18:30] LABS: Appearance of Peritoneal Fl CLEAR (Clear); Basophils,Peritoneal Fluid 0 %; Eosinophils,Peritoneal Fluid 0 %
[2021-08-31] MEDS: Albumin 25% 25gram/100mL 25 GM/100 ML IV.SOLN IVPB SCH (18:39)
[2021-09-01] MEDS: Albumin 25% 25gram/100mL 25 GM/100 ML IV.SOLN IVPB SCH (00:12)
[2021-09-01 03:28] LABS: Hematocrit 38.7 % (37.5-50.1); Mean Corpuscular Hemoglobin 30.8 pg (28.0-33.3); Mean Corpuscular Volume 99.2 fL (83.0-100.0); Mean Platelet Volume 10.4 fL (9.4-12.4); Platelet Count 179 K/mcL (140-400); Red Cell Distribution Width 16.7 % (11.5-14.5); White Blood Count 7.3 K/mcL (4.3-11.1)
[2021-09-01 03:51] LABS: Calcium 8.3 mg/dL (8.6-10.3); Potassium 4.9 mEq/L (3.5-5.1)
[2021-09-01] MEDS: Multivit/Ca/Min/Fe/FA 1 TAB TABLET PO SCH (07:54)
[2021-09-01] MEDS: Aspirin Enteric Coated 81 MG Tablet PO SCH (07:54)
[2021-09-01] MEDS: Cholecalciferol (D-3) 1,000 UNIT (25MCG) TABLET PO SCH (07:54)
[2021-09-01] MEDS: Gabapentin 100 MG CAPSULE PO SCH ×2 (07:55→20:05)
[2021-09-01] MEDS: Apixaban 5 MG TABLET PO SCH ×2 (07:55→20:05)
[2021-09-01] MEDS: Acetaminophen 325 MG TABLET PO PRN ×2 (08:01→22:16)
[2021-09-01] MEDS: Metoprolol XL (24 HR) Succ 50 MG TAB.ER.24H PO SCH ×2 (09:59→20:05)
[2021-09-01] MEDS: SODIUM ZIRCONIUM CYCLOSILICATE 5 GM POWD.PACK PO SCH (16:42)
[2021-09-02 04:21] LABS: Basophils # 0.1 K/mcL (0.0-0.2); Basophils % 0.6 %; Eosinophils # 0.2 K/mcL (0.0-0.6); Eosinophils % 2.8 %; Hematocrit 37.7 % (37.5-50.1); Hemoglobin 11.8 g/dL (12.9-16.9); Immature Granulocytes % 0.3 % (0-4); Lymphocytes # 1.3 K/mcL (0.6-4.6); Lymphocytes % 15.7 %; Mean Corpuscular HGB Conc 31.3 g/dL (31.6-35.5); Mean Corpuscular Hemoglobin 30.9 pg (28.0-33.3); Mean Corpuscular Volume 98.7 fL (83.0-100.0); Mean Platelet Volume 10.2 fL (9.4-12.4); Monocytes # 0.8 K/mcL (0.0-1.3); Monocytes % 10.6 %; Neutrophils # 5.6 K/mcL (1.6-8.9); Platelet Count 176 K/mcL (140-400); Red Blood Count 3.82 M/mcL (4.19-5.50); Red Cell Distribution Width 16.5 % (11.5-14.5)
[2021-09-02] MEDS: Acetaminophen 325 MG TABLET PO PRN (04:41)
[2021-09-02 04:43] LABS: Calcium 8.5 mg/dL (8.6-10.3); Magnesium 2.3 mg/dL (1.6-2.6); Phosphorous 7.9 mg/dL (2.7-4.5); Potassium 5.3 mEq/L (3.5-5.1)
[2021-09-02] MEDS: Cholecalciferol (D-3) 1,000 UNIT (25MCG) TABLET PO SCH (08:55)
[2021-09-02] MEDS: Aspirin Enteric Coated 81 MG Tablet PO SCH (08:56)
[2021-09-02] MEDS: Apixaban 5 MG TABLET PO SCH ×2 (08:56→20:48)
[2021-09-02] MEDS: Gabapentin 100 MG CAPSULE PO SCH ×2 (08:56→20:47)
[2021-09-02] MEDS: Multivit/Ca/Min/Fe/FA 1 TAB TABLET PO SCH (08:56)
[2021-09-02] MEDS: Metoprolol XL (24 HR) Succ 50 MG TAB.ER.24H PO SCH ×2 (09:01→20:54)
[2021-09-02] MEDS ORDERED: Lactulose Oral Soln 20 GM/30 ML UDC PO PRN (13:11)
[2021-09-02] MEDS: SODIUM ZIRCONIUM CYCLOSILICATE 5 GM POWD.PACK PO SCH (16:45)
[2021-09-03 03:40] LABS: Hematocrit 40.4 % (37.5-50.1); Hemoglobin 12.6 g/dL (12.9-16.9)
[2021-09-03 03:58] LABS: Calcium 8.9 mg/dL (8.6-10.3); Magnesium 2.4 mg/dL (1.6-2.6); Phosphorous 8.7 mg/dL (2.7-4.5); Potassium 5.9 mEq/L (3.5-5.1)
[2021-09-03] MEDS ORDERED: *HR* Heparin 10,000 UNIT/10 ML VIAL IV PRN (08:24)
[2021-09-03] MEDS ORDERED: 0.9 % Sodium Chloride 250 ML IVC PRN (08:24)
[2021-09-03] MEDS ORDERED: 0.9 % Sodium Chloride 1,000 ML PRIME SCH (08:30)
[2021-09-03] MEDS: Cholecalciferol (D-3) 1,000 UNIT (25MCG) TABLET PO SCH (09:18)
[2021-09-03] MEDS: Aspirin Enteric Coated 81 MG Tablet PO SCH (09:18)
[2021-09-03] MEDS: Gabapentin 100 MG CAPSULE PO SCH ×2 (09:18→20:14)
[2021-09-03] MEDS: Multivit/Ca/Min/Fe/FA 1 TAB TABLET PO SCH (09:19)
[2021-09-03] MEDS: Apixaban 5 MG TABLET PO SCH ×2 (09:19→20:14)
[2021-09-03] MEDS: Metoprolol XL (24 HR) Succ 50 MG TAB.ER.24H PO SCH ×2 (09:19→20:15)
[2021-09-04] MEDS: Acetaminophen 325 MG TABLET PO PRN (03:52)
[2021-09-04 05:51] LABS: Hematocrit 40.1 % (37.5-50.1); Hemoglobin 12.6 g/dL (12.9-16.9)
[2021-09-04 06:03] LABS: Fluid Source for Albumin PERITONEAL FL
[2021-09-04 06:15] LABS: Calcium 8.9 mg/dL (8.6-10.3); Magnesium 2.2 mg/dL (1.6-2.6); Phosphorous 7.8 mg/dL (2.7-4.5); Potassium 5.6 mEq/L (3.5-5.1)
[2021-09-04] MEDS: Cholecalciferol (D-3) 1,000 UNIT (25MCG) TABLET PO SCH (07:31)
[2021-09-04] MEDS: Aspirin Enteric Coated 81 MG Tablet PO SCH (07:32)
[2021-09-04] MEDS: Multivit/Ca/Min/Fe/FA 1 TAB TABLET PO SCH (07:32)
[2021-09-04] MEDS: Gabapentin 100 MG CAPSULE PO SCH ×2 (07:32→21:31)
[2021-09-04] MEDS: Apixaban 5 MG TABLET PO SCH ×2 (07:32→21:32)
[2021-09-04] MEDS: Metoprolol XL (24 HR) Succ 50 MG TAB.ER.24H PO SCH ×2 (11:20→21:31)
[2021-09-04 14:54] LABS: Albumin 3.1 g/dL (3.5-5.7); Bilirubin,Direct 0.2 mg/dL (0.0-0.2); Bilirubin,Indirect 0.3 mg/dL (0.0-1.0); Bilirubin,Total 0.5 mg/dL (0.3-1.0); Globulin 3.1 g/dL (2.4-3.5); Total Protein 6.2 g/dL (6.4-8.9)
[2021-09-04 14:58] LABS: Thyroid Stimulating Hormone 2.115 mcIU/mL (0.340-5.600)
[2021-09-04 15:26] LABS: Influenza A PCR Negative (Negative); Influenza B PCR Negative (Negative); Resp. Syncytial Virus PCR Negative (Negative)
[2021-09-04 15:27] LABS: SARS-CoV-2 by PCR (In House) Negative (Negative)
[2021-09-04] MEDS ORDERED: Amiodarone Premix 360 MG/200 ML BAG IVC ONE (16:45)
[2021-09-04] MEDS: SODIUM ZIRCONIUM CYCLOSILICATE 5 GM POWD.PACK PO SCH (16:58)
[2021-09-04] MEDS: Amiodarone Premix 360 MG/200 ML BAG IVC SCH (23:15)
[2021-09-05] MEDS: Acetaminophen 325 MG TABLET PO PRN (01:20)
[2021-09-05 07:48] LABS: Hematocrit 41.3 % (37.5-50.1); Hemoglobin 12.6 g/dL (12.9-16.9)
[2021-09-05 08:23] LABS: Calcium 8.9 mg/dL (8.6-10.3); Magnesium 2.3 mg/dL (1.6-2.6); Phosphorous 8.5 mg/dL (2.7-4.5); Potassium 6.2 mEq/L (3.5-5.1)
[2021-09-05] MEDS ORDERED: *HR* Heparin 10,000 UNIT/10 ML VIAL IV PRN (08:25)
[2021-09-05] MEDS ORDERED: 0.9 % Sodium Chloride 250 ML IVC PRN (08:25)
[2021-09-05] MEDS ORDERED: 0.9 % Sodium Chloride 1,000 ML PRIME SCH (08:30)
[2021-09-05] MEDS: Metoprolol XL (24 HR) Succ 50 MG TAB.ER.24H PO SCH ×2 (08:58→20:37)
[2021-09-05] MEDS: Apixaban 5 MG TABLET PO SCH ×2 (08:58→20:37)
[2021-09-05] MEDS: Cholecalciferol (D-3) 1,000 UNIT (25MCG) TABLET PO SCH (08:59)
[2021-09-05] MEDS: Aspirin Enteric Coated 81 MG Tablet PO SCH (08:59)
[2021-09-05] MEDS: Multivit/Ca/Min/Fe/FA 1 TAB TABLET PO SCH (08:59)
[2021-09-05] MEDS: Gabapentin 100 MG CAPSULE PO SCH ×2 (08:59→20:36)
[2021-09-05] MEDS ORDERED: Isovue-370 500 ML BOTTLE IVP ONE (09:00)
[2021-09-05] MEDS: Amiodarone Premix 360 MG/200 ML BAG IVC SCH ×2 (11:56→22:27)
[2021-09-05] MEDS ORDERED: Amoxicillin 500 MG CAPSULE PO SCH (12:00)
[2021-09-05] MEDS ORDERED: Albumin 25% 25gram/100mL 25 GM/100 ML IV.SOLN IVPB ONE ×2 (15:13→16:55)
[2021-09-05] MEDS: Amoxicillin 500 MG CAPSULE PO SCH (23:23)
[2021-09-06 03:16] LABS: Basophils # 0.1 K/mcL (0.0-0.2); Basophils % 0.8 %; Eosinophils # 0.3 K/mcL (0.0-0.6); Eosinophils % 4.3 %; Hematocrit 39.1 % (37.5-50.1); Immature Granulocytes % 0.3 % (0-4); Lymphocytes # 1.1 K/mcL (0.6-4.6); Mean Corpuscular HGB Conc 30.7 g/dL (31.6-35.5); Mean Corpuscular Hemoglobin 30.4 pg (28.0-33.3); Monocytes # 0.7 K/mcL (0.0-1.3); Monocytes % 11.1 %; Neutrophils # 3.9 K/mcL (1.6-8.9); Platelet Count 146 K/mcL (140-400); Red Blood Count 3.95 M/mcL (4.19-5.50); Red Cell Distribution Width 16.7 % (11.5-14.5); Segmented Neutrophils % 65.5 %
[2021-09-06 03:34] LABS: Calcium 8.6 mg/dL (8.6-10.3); Magnesium 2.2 mg/dL (1.6-2.6); Phosphorous 7.2 mg/dL (2.7-4.5); Potassium 5.3 mEq/L (3.5-5.1)
[2021-09-06] MEDS: Cholecalciferol (D-3) 1,000 UNIT (25MCG) TABLET PO SCH (08:58)
[2021-09-06] MEDS: Apixaban 5 MG TABLET PO SCH ×2 (08:58→20:00)
[2021-09-06] MEDS: Gabapentin 100 MG CAPSULE PO SCH ×2 (09:00→20:00)
[2021-09-06] MEDS: Amoxicillin 500 MG CAPSULE PO SCH ×2 (09:00→20:00)
[2021-09-06] MEDS: Aspirin Enteric Coated 81 MG Tablet PO SCH (09:00)
[2021-09-06] MEDS: Multivit/Ca/Min/Fe/FA 1 TAB TABLET PO SCH (09:00)
[2021-09-06] MEDS: Metoprolol XL (24 HR) Succ 50 MG TAB.ER.24H PO SCH ×2 (09:02→20:00)
[2021-09-06] MEDS: Amiodarone Premix 360 MG/200 ML BAG IVC SCH (09:15)
[2021-09-06] MEDS: *HR* Amiodarone 200 MG TABLET PO SCH ×2 (12:25→20:00)
[2021-09-06] MEDS: SODIUM ZIRCONIUM CYCLOSILICATE 5 GM POWD.PACK PO SCH (17:08)
[2021-09-06] MEDS: Nystatin Cream 15 GM TUBE TP SCH (20:01)
[2021-09-07 05:32] LABS: Hematocrit 40.1 % (37.5-50.1); Hemoglobin 12.1 g/dL (12.9-16.9); Mean Corpuscular HGB Conc 30.2 g/dL (31.6-35.5); Mean Corpuscular Hemoglobin 29.7 pg (28.0-33.3); Mean Corpuscular Volume 98.3 fL (83.0-100.0); Mean Platelet Volume 10.5 fL (9.4-12.4); Platelet Count 169 K/mcL (140-400); Red Blood Count 4.08 M/mcL (4.19-5.50); Red Cell Distribution Width 16.5 % (11.5-14.5); White Blood Count 7.5 K/mcL (4.3-11.1)
[2021-09-07] MEDS: Doxycycline 100 MG CAPSULE PO SCH ×2 (05:44→19:45)
[2021-09-07 05:51] LABS: Calcium 8.9 mg/dL (8.6-10.3); Potassium 5.6 mEq/L (3.5-5.1)
[2021-09-07 05:53] LABS: Magnesium 2.3 mg/dL (1.6-2.6)
[2021-09-07] MEDS ORDERED: 0.9 % Sodium Chloride 250 ML IVC PRN (08:38)
[2021-09-07] MEDS: Amoxicillin 500 MG CAPSULE PO SCH ×2 (09:04→19:43)
[2021-09-07] MEDS: Apixaban 5 MG TABLET PO SCH ×2 (09:04→19:45)
[2021-09-07] MEDS: Multivit/Ca/Min/Fe/FA 1 TAB TABLET PO SCH (09:04)
[2021-09-07] MEDS: Aspirin Enteric Coated 81 MG Tablet PO SCH (09:04)
[2021-09-07] MEDS: Nystatin Cream 15 GM TUBE TP SCH ×2 (09:05→19:45)
[2021-09-07] MEDS: Metoprolol XL (24 HR) Succ 50 MG TAB.ER.24H PO SCH ×2 (09:05→19:45)
[2021-09-07] MEDS: Gabapentin 100 MG CAPSULE PO SCH ×2 (09:05→19:45)
[2021-09-07] MEDS: Cholecalciferol (D-3) 1,000 UNIT (25MCG) TABLET PO SCH (09:05)
[2021-09-07] MEDS: *HR* Amiodarone 200 MG TABLET PO SCH ×2 (09:05→19:45)
[2021-09-07 10:18] VITALS: PULSE 106; O2SAT 96
[2021-09-07] MEDS ORDERED: lisinopriL 5 MG TABLET PO SCH (10:30)
[2021-09-07] MEDS ORDERED: Albumin 25% 25gram/100mL 25 GM/100 ML IV.SOLN IVPB ONE (15:03)
[2021-09-07 16:50] VITALS: TEMP 98
[2021-09-07 19:52] VITALS: BP 95/59
== END 2021-09-07 20:05 | DRG 280 ==
LOC: EMEROOARM 13:40 → 2ANU 13:40 → SUATTDRO 18:45 → 2ANU 19:34 → 2NENU 09-04 16:33
PROVIDERS: ADMIT Internal Medicine; ATTEND Internal Medicine

== ENCOUNTER 2021-12-19 12:17 | Inpatient (IN) ==
[2021-12-19] MEDS ORDERED: Naloxone 0.4 MG/ML INJ IVP PRN (19:58)
[2021-12-19] MEDS ORDERED: Acetaminophen 325 MG TABLET PO PRN (19:58)
[2021-12-19] MEDS ORDERED: Ondansetron 4 MG/2 ML VIAL IVP PRN (19:58)
[2021-12-19 21:02] LABS: Basophils # 0.1 K/mcL (0.0-0.2); Basophils % 0.9 %; Eosinophils # 0.3 K/mcL (0.0-0.6); Hematocrit 32.6 % (37.5-50.1); Hemoglobin 10.1 g/dL (12.9-16.9); Immature Granulocytes % 0.2 % (0-4); Lymphocytes # 1.3 K/mcL (0.6-4.6); Lymphocytes % 15.1 %; Mean Corpuscular Hemoglobin 30.4 pg (28.0-33.3); Mean Corpuscular Volume 98.2 fL (83.0-100.0); Mean Platelet Volume 9.7 fL (9.4-12.4); Monocytes # 0.8 K/mcL (0.0-1.3); Monocytes % 9.9 %; Neutrophils # 5.9 K/mcL (1.6-8.9); Platelet Count 187 K/mcL (140-400); Red Blood Count 3.32 M/mcL (4.19-5.50); Red Cell Distribution Width 14.6 % (11.5-14.5); Segmented Neutrophils % 69.9 %; White Blood Count 8.5 K/mcL (4.3-11.1)
[2021-12-19 21:11] LABS: INR 1.5; Prothrombin Time 16.8 Seconds (9.4-12.1)
[2021-12-19 21:13] LABS: Activated Partial Thrombo Time 41.4 Seconds (26.0-36.0)
[2021-12-19 21:23] LABS: Alanine Aminotransferase < 3 Units/L (7-52); Albumin 2.8 g/dL (3.5-5.7); Albumin/Globulin Ratio 0.8 (1.1-2.2); Alkaline Phosphatase 452 Units/L (34-104); Aspartate Amino Transferase 5 Units/L (13-39); BUN/Creatinine Ratio 7 (6-26); Bilirubin,Total 0.5 mg/dL (0.3-1.0); Blood Urea Nitrogen 55 mg/dL (6-20); Calcium 8.8 mg/dL (8.6-10.3); Carbon Dioxide 30 mEq/L (23-29); Chloride 95 mEq/L (98-107); Globulin 3.7 g/dL (2.4-3.5); Glucose 101 mg/dL (70-105); Osmolality,Calculated 295 (280-300); Potassium 5.4 mEq/L (3.5-5.1); Sodium 135 mEq/L (136-145); Total Protein 6.5 g/dL (6.4-8.9); eGFR For African Americans 9 (> 60); eGFR For Non-African Americans 8 (> 60)
[2021-12-20] MEDS ORDERED: Apixaban 5 MG TABLET PO SCH (00:15)
[2021-12-20] MEDS: Gabapentin 100 MG CAPSULE PO SCH ×3 (00:33→20:15)
[2021-12-20] MEDS: Metoprolol XL (24 HR) Succ 50 MG TAB.ER.24H PO SCH ×3 (00:33→20:15)
[2021-12-20] MEDS: SODIUM ZIRCONIUM CYCLOSILICATE 5 GM POWD.PACK PO SCH (00:33)
[2021-12-20 01:28] LABS: Hematocrit 32.7 % (37.5-50.1); Hemoglobin 10.1 g/dL (12.9-16.9); Mean Corpuscular HGB Conc 30.9 g/dL (31.6-35.5); Mean Corpuscular Hemoglobin 30.1 pg (28.0-33.3); Mean Corpuscular Volume 97.3 fL (83.0-100.0); Mean Platelet Volume 9.9 fL (9.4-12.4); Platelet Count 195 K/mcL (140-400); Red Blood Count 3.36 M/mcL (4.19-5.50); Red Cell Distribution Width 14.7 % (11.5-14.5); White Blood Count 8.5 K/mcL (4.3-11.1)
[2021-12-20 01:48] LABS: Potassium 5.8 mEq/L (3.5-5.1)
[2021-12-20] MEDS ORDERED: *HR* Dextrose 50 % in Water (Syg) 50 ML SYRINGE IVP ONE (07:14)
[2021-12-20] MEDS ORDERED: Insulin Human Regular 10 UNIT in 0.9 % Sodium Chloride 10 ML IV ONE (07:14)
[2021-12-20] MEDS ORDERED: Albumin 25% 25gram/100mL 25 GM/100 ML IV.SOLN IVPB SCH (08:00)
[2021-12-20] MEDS: Aspirin Enteric Coated 81 MG Tablet PO SCH (08:53)
[2021-12-20] MEDS: *HR* Amiodarone 200 MG TABLET PO SCH ×2 (08:53→20:15)
[2021-12-20] MEDS: Calcium Gluconate 1gm/50mL 1 GM/50 ML BAG IVPB SCH ×2 (08:54→10:38)
[2021-12-20] MEDS: lisinopriL 5 MG TABLET PO SCH (09:04)
[2021-12-20 09:06] LABS: Hepatitis B Surface Antibody 35.48 mIU/mL
[2021-12-20 09:17] LABS: Hepatitis B Surface Antigen Nonreactive (Nonreactive)
[2021-12-20] MEDS: Cholecalciferol (D-3) 1,000 UNIT (25MCG) TABLET PO SCH (09:23)
[2021-12-20] MEDS ORDERED: 0.9 % Sodium Chloride 250 ML IVC PRN (10:44)
[2021-12-20] MEDS ORDERED: 0.9 % Sodium Chloride 1,000 ML PRIME SCH (10:45)
[2021-12-20] MEDS ORDERED: Ethyl Chloride Spray Bottle (104 SPRAY/BOTTLE) TP PRN (11:11)
[2021-12-20] MEDS ORDERED: Heparin 1,000 UNITS/500 mL 500 ML ONE (12:10)
[2021-12-20] MEDS ORDERED: *HR* Heparin 5,000 UNIT/ML VIAL ONE (14:31)
[2021-12-20] MEDS ORDERED: *HR* Heparin 10,000 UNIT/10 ML VIAL IV PRN (15:09)
[2021-12-20 15:14] LABS: RBC,Peritoneal Fluid < 2000 RBC/mcL
[2021-12-20 15:20] LABS: Appearance of Peritoneal Fl CLEAR (Clear)
[2021-12-20 15:33] LABS: Total Protein,Peritoneal Fluid 4.1 g/dL
[2021-12-20 17:14] LABS: Basophils,Peritoneal Fluid 0 %; Eosinophils,Peritoneal Fluid 0 %
[2021-12-20 18:55] LABS: Calcium 9.4 mg/dL (8.6-10.3); Potassium 4.9 mEq/L (3.5-5.1)
[2021-12-20] MEDS: Albumin 25% 25gram/100mL 25 GM/100 ML IV.SOLN IVPB SCH (20:14)
[2021-12-21 01:57] LABS: Basophils # 0.1 K/mcL (0.0-0.2); Basophils % 0.7 %; Eosinophils # 0.2 K/mcL (0.0-0.6); Eosinophils % 1.9 %; Hemoglobin 10.2 g/dL (12.9-16.9); Immature Granulocytes % 0.4 % (0-4); Lymphocytes % 10.2 %; Mean Corpuscular Hemoglobin 30.2 pg (28.0-33.3); Mean Corpuscular Volume 100.6 fL (83.0-100.0); Mean Platelet Volume 10.1 fL (9.4-12.4); Neutrophils # 7.4 K/mcL (1.6-8.9); Platelet Count 213 K/mcL (140-400); Red Blood Count 3.38 M/mcL (4.19-5.50); Red Cell Distribution Width 14.7 % (11.5-14.5); Segmented Neutrophils % 76.8 %; White Blood Count 9.6 K/mcL (4.3-11.1)
[2021-12-21 02:14] LABS: Calcium 9.3 mg/dL (8.6-10.3); Magnesium 2.1 mg/dL (1.6-2.6); Phosphorous 6.7 mg/dL (2.7-4.5)
[2021-12-21 02:36] LABS: Folate 7.9 ng/mL (3.0-16.0)
[2021-12-21] MEDS: Albumin 25% 25gram/100mL 25 GM/100 ML IV.SOLN IVPB SCH ×2 (03:57→12:30)
[2021-12-21] MEDS ORDERED: *HR* Dextrose 50 % in Water (Syg) 50 ML SYRINGE IVP ONE (07:18)
[2021-12-21] MEDS ORDERED: Insulin Human Regular 10 UNIT in 0.9 % Sodium Chloride 10 ML IV ONE (07:18)
[2021-12-21] MEDS ORDERED: Cyanocobalamin (B-12) 1,000 MCG/ML VIAL SQ ONE (07:19)
[2021-12-21] MEDS ORDERED: *HR* Heparin 10,000 UNIT/10 ML VIAL IV PRN (08:20)
[2021-12-21] MEDS ORDERED: 0.9 % Sodium Chloride 250 ML IVC PRN (08:20)
[2021-12-21] MEDS: Cholecalciferol (D-3) 1,000 UNIT (25MCG) TABLET PO SCH (08:39)
[2021-12-21] MEDS: *HR* Amiodarone 200 MG TABLET PO SCH ×2 (08:40→22:42)
[2021-12-21] MEDS: Gabapentin 100 MG CAPSULE PO SCH ×2 (08:40→22:42)
[2021-12-21] MEDS: Aspirin Enteric Coated 81 MG Tablet PO SCH (08:40)
[2021-12-21] MEDS: Calcium Gluconate 1gm/50mL 1 GM/50 ML BAG IVPB SCH ×2 (08:41→11:33)
[2021-12-21] MEDS: lisinopriL 5 MG TABLET PO SCH (09:31)
[2021-12-21] MEDS: Metoprolol XL (24 HR) Succ 50 MG TAB.ER.24H PO SCH ×2 (09:31→22:38)
[2021-12-21 14:30] LABS: Calcium 8.9 mg/dL (8.6-10.3); Potassium 5.9 mEq/L (3.5-5.1)
[2021-12-21] MEDS ORDERED: Albumin 25% 25gram/100mL 25 GM/100 ML IV.SOLN IVPB ONE (18:39)
[2021-12-22] MEDS: Albumin 25% 25gram/100mL 25 GM/100 ML IV.SOLN IVPB SCH ×3 (03:07→19:41)
[2021-12-22 03:42] LABS: Basophils % 0.5 %; Eosinophils # 0.2 K/mcL (0.0-0.6); Eosinophils % 2.6 %; Hematocrit 29.6 % (37.5-50.1); Hemoglobin 9.3 g/dL (12.9-16.9); Immature Granulocytes % 0.4 % (0-4); Lymphocytes # 0.8 K/mcL (0.6-4.6); Lymphocytes % 11.1 %; Mean Corpuscular HGB Conc 31.4 g/dL (31.6-35.5); Mean Corpuscular Hemoglobin 31.4 pg (28.0-33.3); Mean Platelet Volume 10.1 fL (9.4-12.4); Monocytes # 0.8 K/mcL (0.0-1.3); Monocytes % 9.9 %; Neutrophils # 5.7 K/mcL (1.6-8.9); Platelet Count 179 K/mcL (140-400); Red Blood Count 2.96 M/mcL (4.19-5.50); Red Cell Distribution Width 14.7 % (11.5-14.5); Segmented Neutrophils % 75.5 %; White Blood Count 7.6 K/mcL (4.3-11.1)
[2021-12-22 03:59] LABS: Calcium 9.1 mg/dL (8.6-10.3); Potassium 4.5 mEq/L (3.5-5.1)
[2021-12-22] MEDS: Metoprolol XL (24 HR) Succ 50 MG TAB.ER.24H PO SCH ×2 (08:14→19:45)
[2021-12-22] MEDS: SODIUM ZIRCONIUM CYCLOSILICATE 5 GM POWD.PACK PO SCH (08:14)
[2021-12-22] MEDS: Cholecalciferol (D-3) 1,000 UNIT (25MCG) TABLET PO SCH (08:14)
[2021-12-22] MEDS: Gabapentin 100 MG CAPSULE PO SCH ×2 (08:15→19:42)
[2021-12-22] MEDS: *HR* Amiodarone 200 MG TABLET PO SCH ×2 (08:15→19:45)
[2021-12-22] MEDS: Aspirin Enteric Coated 81 MG Tablet PO SCH (08:15)
[2021-12-22] MEDS ORDERED: 0.9 % Sodium Chloride 250 ML IVC PRN (08:44)
[2021-12-22] MEDS ORDERED: *HR* Heparin 10,000 UNIT/10 ML VIAL IV PRN (08:44)
[2021-12-22 21:06] LABS: Fluid Source for Albumin PERITONEAL
[2021-12-23] MEDS: Albumin 25% 25gram/100mL 25 GM/100 ML IV.SOLN IVPB SCH ×3 (04:00→20:09)
[2021-12-23 04:36] LABS: Basophils # 0.1 K/mcL (0.0-0.2); Basophils % 0.6 %; Eosinophils # 0.2 K/mcL (0.0-0.6); Eosinophils % 2.7 %; Hematocrit 29.7 % (37.5-50.1); Immature Granulocytes % 0.5 % (0-4); Lymphocytes % 11.9 %; Mean Corpuscular HGB Conc 30.3 g/dL (31.6-35.5); Monocytes # 0.9 K/mcL (0.0-1.3); Monocytes % 11.4 %; Neutrophils # 5.9 K/mcL (1.6-8.9); Platelet Count 189 K/mcL (140-400); Red Cell Distribution Width 14.6 % (11.5-14.5); Segmented Neutrophils % 72.9 %; White Blood Count 8.1 K/mcL (4.3-11.1)
[2021-12-23 04:57] LABS: Albumin 3.2 g/dL (3.5-5.7); Bilirubin,Direct 0.2 mg/dL (0.0-0.2); Bilirubin,Indirect 0.4 mg/dL (0.0-1.0); Bilirubin,Total 0.6 mg/dL (0.3-1.0); Calcium 9.3 mg/dL (8.6-10.3); Globulin 3.1 g/dL (2.4-3.5); Magnesium 2.2 mg/dL (1.6-2.6); Phosphorous 6.5 mg/dL (2.7-4.5); Potassium 5.4 mEq/L (3.5-5.1); Total Protein 6.3 g/dL (6.4-8.9)
[2021-12-23] MEDS ORDERED: Insulin Human Regular 10 UNIT in 0.9 % Sodium Chloride 10 ML IV ONE (07:11)
[2021-12-23] MEDS ORDERED: *HR* Dextrose 50 % in Water (Syg) 50 ML SYRINGE IVP ONE (07:11)
[2021-12-23] MEDS: Metoprolol XL (24 HR) Succ 50 MG TAB.ER.24H PO SCH (08:11)
[2021-12-23] MEDS: Aspirin Enteric Coated 81 MG Tablet PO SCH (08:11)
[2021-12-23] MEDS: Gabapentin 100 MG CAPSULE PO SCH ×2 (08:11→20:09)
[2021-12-23] MEDS: *HR* Amiodarone 200 MG TABLET PO SCH ×2 (08:12→20:09)
[2021-12-23] MEDS: Cholecalciferol (D-3) 1,000 UNIT (25MCG) TABLET PO SCH (08:12)
[2021-12-23] MEDS: SODIUM ZIRCONIUM CYCLOSILICATE 5 GM POWD.PACK PO SCH (08:12)
[2021-12-23] MEDS ORDERED: Carbamide Peroxide 150 DROP/15 ML BOTTLE RIGHT EAR ONE (09:16)
[2021-12-23] MEDS ORDERED: Carbamide Peroxide 150 DROP/15 ML BOTTLE LEFT EAR ONE (09:16)
[2021-12-24] MEDS: Albumin 25% 25gram/100mL 25 GM/100 ML IV.SOLN IVPB SCH ×4 (03:55→21:56)
[2021-12-24 04:57] LABS: Basophils # 0.1 K/mcL (0.0-0.2); Basophils % 0.8 %; Eosinophils # 0.3 K/mcL (0.0-0.6); Hematocrit 30.4 % (37.5-50.1); Hemoglobin 9.2 g/dL (12.9-16.9); Immature Granulocytes % 0.3 % (0-4); Lymphocytes # 0.9 K/mcL (0.6-4.6); Lymphocytes % 9.6 %; Mean Corpuscular HGB Conc 30.3 g/dL (31.6-35.5); Mean Platelet Volume 10.1 fL (9.4-12.4); Monocytes # 0.9 K/mcL (0.0-1.3); Monocytes % 9.7 %; Neutrophils # 6.9 K/mcL (1.6-8.9); Platelet Count 202 K/mcL (140-400); Red Blood Count 3.07 M/mcL (4.19-5.50); Red Cell Distribution Width 14.6 % (11.5-14.5); Segmented Neutrophils % 76.6 %
[2021-12-24 05:17] LABS: Calcium 9.6 mg/dL (8.6-10.3); Magnesium 2.2 mg/dL (1.6-2.6)
[2021-12-24] MEDS ORDERED: Insulin Human Regular 10 UNIT in 0.9 % Sodium Chloride 10 ML IV ONE (07:07)
[2021-12-24] MEDS ORDERED: *HR* Dextrose 50 % in Water (Syg) 50 ML SYRINGE IVP ONE ×2 (07:07→13:15)
[2021-12-24] MEDS ORDERED: Heparin 1,000 UNITS/500 mL 500 ML ONE (08:35)
[2021-12-24] MEDS ORDERED: 0.9 % Sodium Chloride 500 ML ONE (08:52)
[2021-12-24] MEDS ORDERED: *HR* Midazolam HCl 2 MG/2 ML VIAL IVP ONE (08:53)
[2021-12-24] MEDS ORDERED: *HR* FentaNYL (PF) 100 MCG/2 ML VIAL IVP ONE (08:53)
[2021-12-24] MEDS ORDERED: *HR* Heparin 5,000 UNIT/ML VIAL ONE (09:14)
[2021-12-24] MEDS ORDERED: *HR* Heparin 10,000 UNIT/10 ML VIAL IV PRN (09:22)
[2021-12-24] MEDS ORDERED: 0.9 % Sodium Chloride 250 ML IVC PRN (09:22)
[2021-12-24] MEDS: Aspirin Enteric Coated 81 MG Tablet PO SCH (12:12)
[2021-12-24] MEDS: Metoprolol XL (24 HR) Succ 50 MG TAB.ER.24H PO SCH (12:12)
[2021-12-24] MEDS: Cholecalciferol (D-3) 1,000 UNIT (25MCG) TABLET PO SCH (12:12)
[2021-12-24] MEDS: Gabapentin 100 MG CAPSULE PO SCH ×2 (12:13→21:40)
[2021-12-24] MEDS: SODIUM ZIRCONIUM CYCLOSILICATE 5 GM POWD.PACK PO SCH (12:15)
[2021-12-24] MEDS: *HR* Amiodarone 200 MG TABLET PO SCH ×2 (12:15→21:40)
[2021-12-24] MEDS: Calcium Gluconate 1gm/50mL 1 GM/50 ML BAG IVPB SCH ×3 (14:16→15:24)
[2021-12-24] MEDS: ceFAZolin 1,000 MG in 0.9 % Sodium Chloride Mini Bag 100 ML IVPB SCH (22:52)
[2021-12-25 01:30] LABS: Basophils # 0.1 K/mcL (0.0-0.2); Basophils % 0.7 %; Eosinophils # 0.2 K/mcL (0.0-0.6); Eosinophils % 2.2 %; Hematocrit 30.1 % (37.5-50.1); Hemoglobin 9.4 g/dL (12.9-16.9); Immature Granulocytes % 0.4 % (0-4); Lymphocytes # 0.7 K/mcL (0.6-4.6); Lymphocytes % 8.6 %; Mean Corpuscular HGB Conc 31.2 g/dL (31.6-35.5); Mean Corpuscular Hemoglobin 30.3 pg (28.0-33.3); Mean Corpuscular Volume 97.1 fL (83.0-100.0); Mean Platelet Volume 9.8 fL (9.4-12.4); Monocytes # 0.7 K/mcL (0.0-1.3); Monocytes % 8.4 %; Neutrophils # 6.7 K/mcL (1.6-8.9); Platelet Count 199 K/mcL (140-400); Red Cell Distribution Width 14.6 % (11.5-14.5); Segmented Neutrophils % 79.7 %; White Blood Count 8.4 K/mcL (4.3-11.1)
[2021-12-25 01:49] LABS: Calcium 8.7 mg/dL (8.6-10.3); Phosphorous 4.9 mg/dL (2.7-4.5)
[2021-12-25] MEDS: Albumin 25% 25gram/100mL 25 GM/100 ML IV.SOLN IVPB SCH ×2 (05:51→14:46)
[2021-12-25 08:16] VITALS: PULSE 74
[2021-12-25] MEDS: Metoprolol XL (24 HR) Succ 50 MG TAB.ER.24H PO SCH (09:52)
[2021-12-25] MEDS: *HR* Amiodarone 200 MG TABLET PO SCH (09:52)
[2021-12-25] MEDS: Gabapentin 100 MG CAPSULE PO SCH (09:52)
[2021-12-25] MEDS: SODIUM ZIRCONIUM CYCLOSILICATE 5 GM POWD.PACK PO SCH (09:52)
[2021-12-25] MEDS: Cholecalciferol (D-3) 1,000 UNIT (25MCG) TABLET PO SCH (09:53)
[2021-12-25] MEDS: Aspirin Enteric Coated 81 MG Tablet PO SCH (09:53)
[2021-12-25 10:26] VITALS: BP 117/74; TEMP 99.7; O2SAT 90
[2021-12-25 13:55] LABS: Adenovirus Not Detected (Not Detect); Bordetella Pertussis Not Detected (Not Detect); Chlamydophila pneumoniae Not Detected (Not Detect); Coronavirus 229E Not Detected (Not Detect); Coronavirus HKU1 Not Detected (Not Detect); Coronavirus NL63 Not Detected (Not Detect); Coronavirus OC43 Not Detected (Not Detect); Human Metapneumovirus Not Detected (Not Detect); Human Rhinovirus/Enterovirus Not Detected (Not Detect); Influenza A Subtype 2009 H1 Not Detected (Not Detect); Influenza B Not Detected (Not Detect); Mycoplasma pneumoniae Not Detected (Not Detect); Parainfluenza Virus 1 Not Detected (Not Detect); Parainfluenza Virus 2 Not Detected (Not Detect); Parainfluenza Virus 3 Not Detected (Not Detect); Parainfluenza Virus 4 Not Detected (Not Detect); Respiratory Syncytial Virus Not Detected (Not Detect); SARS-CoV-2 Not Detected (Not Detect)
== END 2021-12-25 15:30 | DRG 314 ==
LOC: 2ANU → SUATTDRO 18:23
PROVIDERS: ADMIT Internal Medicine; ATTEND Pharmacist
PROC: IRPERMA (2021-12-24 12:00)

== ENCOUNTER 2022-05-18 10:00 | Inpatient (IN) ==
[2022-05-18] MEDS ORDERED: Ondansetron 4 MG/2 ML VIAL IVP PRN ×2 (12:24→19:34)
[2022-05-18] MEDS ORDERED: Naloxone 0.4 MG/ML INJ IVP PRN ×2 (12:24→19:34)
[2022-05-18] MEDS ORDERED: Acetaminophen 325 MG TABLET PO PRN ×2 (12:24→19:34)
[2022-05-18 12:47] LABS: Eosinophils % 0.1 %; Immature Granulocytes % 0.4 % (0-4); Lymphocytes % 4.3 %; Segmented Neutrophils % 88.5 %
[2022-05-18 12:49] LABS: Basophils % 0.2 %; Hematocrit 32.8 % (37.5-50.1); Hemoglobin 9.1 g/dL (12.9-16.9); Lymphocytes # 0.5 K/mcL (0.6-4.6); Mean Corpuscular HGB Conc 27.7 g/dL (31.6-35.5); Mean Corpuscular Hemoglobin 27.7 pg (28.0-33.3); Mean Corpuscular Volume 99.7 fL (83.0-100.0); Mean Platelet Volume 10.2 fL (9.4-12.4); Monocytes # 0.7 K/mcL (0.0-1.3); Monocytes % 6.5 %; Neutrophils # 9.5 K/mcL (1.6-8.9); Nucleated Red Blood Cells 0.2 /100 WBC (0); Platelet Count 222 K/mcL (140-400); Red Blood Count 3.29 M/mcL (4.19-5.50); Red Cell Distribution Width 17.3 % (11.5-14.5); White Blood Count 10.7 K/mcL (4.3-11.1)
[2022-05-18] MEDS ORDERED: Iopamidol - 370 500 ML MLS IVP ONE (12:52)
[2022-05-18 12:58] LABS: INR 1.7; Prothrombin Time 19.3 Seconds (9.4-12.1)
[2022-05-18 13:14] LABS: Anisocytosis 1+ (Not Present); Hypochromasia Present (Not Present); Platelet Estimate Normal (Normal)
[2022-05-18 13:18] LABS: Calcium 8.1 mg/dL (8.6-10.3); Potassium 6.5 mEq/L (3.5-5.1)
[2022-05-18] MEDS ORDERED: Calcium Gluconate 1gm/50mL 1 GM/50 ML BAG IVPB ONE (13:20)
[2022-05-18] MEDS ORDERED: Albuterol 2.5 MG/3 ML NEBULIZER IH ONE ×2 (13:26→19:34)
[2022-05-18 14:10] LABS: Albumin 2.5 g/dL (3.5-5.7); Albumin/Globulin Ratio 0.8 (1.1-2.2); Bilirubin,Direct 0.2 mg/dL (0.0-0.2); Bilirubin,Indirect 0.3 mg/dL (0.0-1.0); Bilirubin,Total 0.5 mg/dL (0.3-1.0); Total Protein 5.5 g/dL (6.4-8.9)
[2022-05-18] MEDS ORDERED: *HR* Heparin 10,000 UNIT/10 ML VIAL IV PRN ×2 (14:20→19:34)
[2022-05-18] MEDS ORDERED: 0.9 % Sodium Chloride 250 ML IVC PRN ×2 (14:20→19:34)
[2022-05-18] MEDS ORDERED: 0.9 % Sodium Chloride 2,000 ML PRIME SCH ×2 (14:30→19:34)
[2022-05-18] MEDS ORDERED: 0.9 % Sodium Chloride 250 ML IVC SCH ×2 (16:30→19:34)
[2022-05-18 16:35] LABS: Hematocrit 29.1 % (37.5-50.1); Hemoglobin 8.2 g/dL (12.9-16.9)
[2022-05-18] MEDS ORDERED: *HR* Midazolam HCl 2 MG/2 ML VIAL IVP ONE (17:25)
[2022-05-18] MEDS ORDERED: *HR* FentaNYL (PF) 100 MCG/2 ML VIAL IVP ONE (17:25)
[2022-05-18] MEDS ORDERED: Heparin 1,000 UNITS/500 mL 500 ML ONE (17:29)
[2022-05-18] MEDS ORDERED: 0.9 % Sodium Chloride 1,000 ML ONE (17:29)
[2022-05-18] MEDS ORDERED: Iopamidol - 300 50 ML VIAL IVP ONE ×2 (18:19→18:20)
[2022-05-18] MEDS ORDERED: *HR* OxyCODONE Immed Rel 5 MG TABLET PO PRN (19:49)
[2022-05-18] MEDS ORDERED: Ondansetron ODT 4 MG TAB.RAPDIS PO PRN (19:50)
[2022-05-18] MEDS ORDERED: polyethylene glycoL 3350 17 GM POWD.PACK PO PRN (19:50)
[2022-05-18] MEDS ORDERED: Bisacodyl 10 MG RECTAL SUPPOSITORY RC PRN (19:50)
[2022-05-18 20:21] LABS: Mean Platelet Volume 10.3 fL (9.4-12.4)
[2022-05-18 20:22] LABS: Hematocrit 28.2 % (37.5-50.1); Hemoglobin 7.9 g/dL (12.9-16.9); Mean Corpuscular Hemoglobin 27.8 pg (28.0-33.3); Mean Corpuscular Volume 99.3 fL (83.0-100.0); Platelet Count 224 K/mcL (140-400); Red Blood Count 2.84 M/mcL (4.19-5.50); Red Cell Distribution Width 17.6 % (11.5-14.5); White Blood Count 9.4 K/mcL (4.3-11.1)
[2022-05-18 20:29] LABS: Calcium 8.1 mg/dL (8.6-10.3); Potassium 6.3 mEq/L (3.5-5.1)
[2022-05-18] MEDS ORDERED: Melatonin 3 MG TABLET PO SCH (21:00)
[2022-05-18] MEDS: Ipratropium/Albuterol Neb 3 ML IH SCH ×2 (21:39→23:35)
[2022-05-19] MEDS: Gabapentin 100 MG CAPSULE PO SCH ×3 (00:42→20:04)
[2022-05-19] MEDS: Lactulose Oral Soln 20 GM/30 ML UDC PO SCH ×3 (00:42→20:05)
[2022-05-19] MEDS: *HR* OxyCODONE/APAP 5/325 TABLET PO PRN ×3 (00:42→21:15)
[2022-05-19] MEDS: *HR* Amiodarone 200 MG TABLET PO SCH ×3 (00:42→20:05)
[2022-05-19] MEDS ORDERED: Mag Hydrox/Al Hydrox/Simeth 30 ML UDC PO PRN ×2 (03:43→09:44)
[2022-05-19 03:45] LABS: Basophils % 0.4 %; Eosinophils # 0.1 K/mcL (0.0-0.6); Eosinophils % 0.9 %; Hematocrit 25.8 % (37.5-50.1); Hemoglobin 7.2 g/dL (12.9-16.9); Immature Granulocytes % 0.2 % (0-4); Lymphocytes # 0.6 K/mcL (0.6-4.6); Lymphocytes % 7.1 %; Mean Corpuscular HGB Conc 27.9 g/dL (31.6-35.5); Mean Corpuscular Volume 100.4 fL (83.0-100.0); Mean Platelet Volume 10.4 fL (9.4-12.4); Monocytes # 0.9 K/mcL (0.0-1.3); Monocytes % 10.6 %; Neutrophils # 6.5 K/mcL (1.6-8.9); Platelet Count 203 K/mcL (140-400); Red Blood Count 2.57 M/mcL (4.19-5.50); Red Cell Distribution Width 17.9 % (11.5-14.5); Segmented Neutrophils % 80.8 %
[2022-05-19 03:48] LABS: White Blood Count 8.1 K/mcL (4.3-11.1)
[2022-05-19] MEDS: Ipratropium/Albuterol Neb 3 ML IH SCH ×6 (03:54→23:25)
[2022-05-19 04:02] LABS: Calcium 7.9 mg/dL (8.6-10.3); Magnesium 1.9 mg/dL (1.6-2.6); Potassium 4.8 mEq/L (3.5-5.1)
[2022-05-19 04:05] LABS: Anisocytosis 1+ (Not Present); Hypochromasia Present (Not Present); Platelet Estimate Normal (Normal); Polychromasia 1+ (Not Present); Stomatocytes 2+ (Not Present)
[2022-05-19 08:50] LABS: Hematocrit 25.1 % (37.5-50.1); Platelet Count 212 K/mcL (140-400)
[2022-05-19 08:52] LABS: Mean Corpuscular HGB Conc 27.9 g/dL (31.6-35.5); Mean Corpuscular Volume 100.4 fL (83.0-100.0); Mean Platelet Volume 10.5 fL (9.4-12.4); Red Cell Distribution Width 17.8 % (11.5-14.5); White Blood Count 8.3 K/mcL (4.3-11.1)
[2022-05-19 08:58] LABS: INR 1.8; Prothrombin Time 19.8 Seconds (9.4-12.1)
[2022-05-19] MEDS ORDERED: Nicotine 14 MG PATCH.TD24 TD SCH (09:00)
[2022-05-19] MEDS ORDERED: calcitrioL 0.25 MCG CAPSULE PO SCH (09:00)
[2022-05-19] MEDS ORDERED: Sennosides/Docusate Sodium TABLET PO SCH (09:00)
[2022-05-19] MEDS ORDERED: Cholecalciferol (D-3) 1,000 UNIT (25MCG) TABLET PO SCH (09:00)
[2022-05-19] MEDS ORDERED: Renal Vitamin 1 CAP CAPSULE PO SCH (09:00)
[2022-05-19] MEDS ORDERED: Bisacodyl 10 MG RECTAL SUPPOSITORY RC PRN (09:44)
[2022-05-19] MEDS ORDERED: 0.9 % Sodium Chloride 250 ML IVC SCH (09:44)
[2022-05-19] MEDS ORDERED: 0.9 % Sodium Chloride 2,000 ML PRIME SCH (09:44)
[2022-05-19] MEDS ORDERED: Naloxone 0.4 MG/ML INJ IVP PRN (09:44)
[2022-05-19] MEDS ORDERED: Ondansetron ODT 4 MG TAB.RAPDIS PO PRN (09:44)
[2022-05-19] MEDS ORDERED: polyethylene glycoL 3350 17 GM POWD.PACK PO PRN (09:44)
[2022-05-19] MEDS ORDERED: Acetaminophen 325 MG TABLET PO PRN (09:44)
[2022-05-19] MEDS: SODIUM ZIRCONIUM CYCLOSILICATE 5 GM POWD.PACK PO SCH (13:28)
[2022-05-19 14:17] LABS: Hematocrit 26.9 % (37.5-50.1); Hemoglobin 7.6 g/dL (12.9-16.9)
[2022-05-19] MEDS: Ondansetron 4 MG/2 ML VIAL IVP PRN (16:00)
[2022-05-19] MEDS: *HR* OxyCODONE Immed Rel 5 MG TABLET PO PRN (18:13)
[2022-05-19] MEDS: Melatonin 3 MG TABLET PO SCH (20:05)
[2022-05-20] MEDS: *HR* OxyCODONE Immed Rel 5 MG TABLET PO PRN ×2 (00:13→09:01)
[2022-05-20] MEDS: *HR* OxyCODONE/APAP 5/325 TABLET PO PRN ×3 (03:40→20:32)
[2022-05-20] MEDS: Ipratropium/Albuterol Neb 3 ML IH SCH ×6 (04:00→23:39)
[2022-05-20 05:23] LABS: Basophils % 0.2 %
[2022-05-20 05:25] LABS: Eosinophils # 0.2 K/mcL (0.0-0.6); Eosinophils % 1.9 %; Hematocrit 27.7 % (37.5-50.1); Immature Granulocytes % 0.5 % (0-4); Lymphocytes # 0.9 K/mcL (0.6-4.6); Lymphocytes % 9.3 %; Mean Corpuscular HGB Conc 28.9 g/dL (31.6-35.5); Mean Corpuscular Hemoglobin 28.9 pg (28.0-33.3); Mean Platelet Volume 10.1 fL (9.4-12.4); Monocytes # 1.3 K/mcL (0.0-1.3); Monocytes % 12.9 %; Neutrophils # 7.4 K/mcL (1.6-8.9); Platelet Count 210 K/mcL (140-400); Red Blood Count 2.77 M/mcL (4.19-5.50); Red Cell Distribution Width 18.2 % (11.5-14.5); Segmented Neutrophils % 75.2 %; White Blood Count 9.8 K/mcL (4.3-11.1)
[2022-05-20 05:44] LABS: Albumin 2.4 g/dL (3.5-5.7); Albumin/Globulin Ratio 0.8 (1.1-2.2); Bilirubin,Direct 0.2 mg/dL (0.0-0.2); Bilirubin,Indirect 0.3 mg/dL (0.0-1.0); Bilirubin,Total 0.5 mg/dL (0.3-1.0); Calcium 7.5 mg/dL (8.6-10.3); Phosphorous 4.6 mg/dL (2.7-4.5); Potassium 5.6 mEq/L (3.5-5.1); Total Protein 5.4 g/dL (6.4-8.9)
[2022-05-20 05:52] LABS: INR 1.6; Prothrombin Time 18.1 Seconds (9.4-12.1)
[2022-05-20 05:55] LABS: Activated Partial Thrombo Time 39.1 Seconds (26.0-36.0)
[2022-05-20 06:09] LABS: Anisocytosis 2+ (Not Present); Hypochromasia Present (Not Present); Platelet Estimate Normal (Normal); Stomatocytes 2+ (Not Present)
[2022-05-20 06:11] LABS: Polychromasia 1+ (Not Present); Reactive Lymphocytes Present (Not Present)
[2022-05-20] MEDS: Gabapentin 100 MG CAPSULE PO SCH ×2 (08:33→22:23)
[2022-05-20] MEDS: *HR* Amiodarone 200 MG TABLET PO SCH ×2 (08:33→22:23)
[2022-05-20] MEDS: Lactulose Oral Soln 20 GM/30 ML UDC PO SCH ×2 (08:34→22:24)
[2022-05-20] MEDS: SODIUM ZIRCONIUM CYCLOSILICATE 5 GM POWD.PACK PO SCH (08:34)
[2022-05-20] MEDS ORDERED: Nicotine 14 MG PATCH.TD24 TD SCH (09:00)
[2022-05-20] MEDS ORDERED: Sennosides/Docusate Sodium TABLET PO SCH (09:00)
[2022-05-20] MEDS ORDERED: Renal Vitamin 1 CAP CAPSULE PO SCH (09:00)
[2022-05-20] MEDS ORDERED: Cholecalciferol (D-3) 1,000 UNIT (25MCG) TABLET PO SCH (09:00)
[2022-05-20] MEDS ORDERED: calcitrioL 0.25 MCG CAPSULE PO SCH (09:00)
[2022-05-20] MEDS: Ondansetron 4 MG/2 ML VIAL IVP PRN (09:01)
[2022-05-20] MEDS ORDERED: 0.9 % Sodium Chloride 250 ML IVC PRN (10:18)
[2022-05-20 13:11] LABS: Hematocrit 28.2 % (37.5-50.1); Hemoglobin 8.2 g/dL (12.9-16.9); Mean Corpuscular HGB Conc 29.1 g/dL (31.6-35.5); Mean Corpuscular Hemoglobin 29.4 pg (28.0-33.3); Mean Corpuscular Volume 101.1 fL (83.0-100.0); Mean Platelet Volume 10.2 fL (9.4-12.4); Platelet Count 208 K/mcL (140-400); Red Blood Count 2.79 M/mcL (4.19-5.50); White Blood Count 10.2 K/mcL (4.3-11.1)
[2022-05-20] MEDS: Melatonin 3 MG TABLET PO SCH (22:24)
[2022-05-21] MEDS: *HR* OxyCODONE Immed Rel 5 MG TABLET PO PRN ×3 (00:05→17:51)
[2022-05-21] MEDS: *HR* OxyCODONE/APAP 5/325 TABLET PO PRN ×3 (04:37→20:55)
[2022-05-21] MEDS ORDERED: Mag Hydrox/Al Hydrox/Simeth 30 ML UDC PO PRN (04:38)
[2022-05-21] MEDS ORDERED: Bisacodyl 10 MG RECTAL SUPPOSITORY RC PRN (04:38)
[2022-05-21] MEDS ORDERED: 0.9 % Sodium Chloride 2,000 ML PRIME SCH (04:38)
[2022-05-21] MEDS ORDERED: Ondansetron 4 MG/2 ML VIAL IVP PRN (04:38)
[2022-05-21] MEDS ORDERED: Ondansetron ODT 4 MG TAB.RAPDIS PO PRN (04:38)
[2022-05-21] MEDS ORDERED: polyethylene glycoL 3350 17 GM POWD.PACK PO PRN (04:38)
[2022-05-21] MEDS ORDERED: Naloxone 0.4 MG/ML INJ IVP PRN (04:38)
[2022-05-21] MEDS ORDERED: 0.9 % Sodium Chloride 250 ML IVC SCH (04:38)
[2022-05-21] MEDS ORDERED: Acetaminophen 325 MG TABLET PO PRN (04:38)
[2022-05-21] MEDS: Ipratropium/Albuterol Neb 3 ML IH SCH (04:53)
[2022-05-21 05:56] LABS: Basophils % 0.3 %; Immature Granulocytes % 0.3 % (0-4); Monocytes % 13.6 %
[2022-05-21 05:57] LABS: Eosinophils # 0.3 K/mcL (0.0-0.6); Eosinophils % 3.1 %; Hematocrit 26.6 % (37.5-50.1); Hemoglobin 7.5 g/dL (12.9-16.9); Lymphocytes # 0.8 K/mcL (0.6-4.6); Lymphocytes % 8.4 %; Mean Corpuscular HGB Conc 28.2 g/dL (31.6-35.5); Mean Corpuscular Hemoglobin 28.3 pg (28.0-33.3); Mean Corpuscular Volume 100.4 fL (83.0-100.0); Mean Platelet Volume 10.6 fL (9.4-12.4); Monocytes # 1.2 K/mcL (0.0-1.3); Neutrophils # 6.8 K/mcL (1.6-8.9); Platelet Count 205 K/mcL (140-400); Red Blood Count 2.65 M/mcL (4.19-5.50); Red Cell Distribution Width 17.8 % (11.5-14.5); Segmented Neutrophils % 74.3 %; White Blood Count 9.1 K/mcL (4.3-11.1)
[2022-05-21 06:04] LABS: Hypochromasia Present (Not Present); Platelet Estimate Normal (Normal)
[2022-05-21 06:16] LABS: Albumin 2.4 g/dL (3.5-5.7); Albumin/Globulin Ratio 0.8 (1.1-2.2); Bilirubin,Direct 0.2 mg/dL (0.0-0.2); Bilirubin,Indirect 0.3 mg/dL (0.0-1.0); Bilirubin,Total 0.5 mg/dL (0.3-1.0); Calcium 8.1 mg/dL (8.6-10.3); Phosphorous 4.5 mg/dL (2.7-4.5); Potassium 5.1 mEq/L (3.5-5.1); Total Protein 5.4 g/dL (6.4-8.9)
[2022-05-21 06:17] LABS: INR 1.5; Prothrombin Time 16.5 Seconds (9.4-12.1)
[2022-05-21] MEDS ORDERED: Ipratropium/Albuterol Neb 3 ML IH SCH (08:00)
[2022-05-21] MEDS: Sennosides/Docusate Sodium TABLET PO SCH (08:50)
[2022-05-21] MEDS: Gabapentin 100 MG CAPSULE PO SCH ×2 (08:51→20:57)
[2022-05-21] MEDS: Renal Vitamin 1 CAP CAPSULE PO SCH (08:51)
[2022-05-21] MEDS: calcitrioL 0.25 MCG CAPSULE PO SCH (08:51)
[2022-05-21] MEDS: Cholecalciferol (D-3) 1,000 UNIT (25MCG) TABLET PO SCH (08:52)
[2022-05-21] MEDS: Nicotine 14 MG PATCH.TD24 TD SCH (08:52)
[2022-05-21] MEDS: *HR* Amiodarone 200 MG TABLET PO SCH ×2 (08:53→20:56)
[2022-05-21] MEDS: Lactulose Oral Soln 20 GM/30 ML UDC PO SCH ×2 (08:53→20:57)
[2022-05-21] MEDS ORDERED: SODIUM ZIRCONIUM CYCLOSILICATE 5 GM POWD.PACK PO SCH (09:00)
[2022-05-21] MEDS ORDERED: Ipratropium/Albuterol Neb 3 ML IH PRN (10:22)
[2022-05-21] MEDS ORDERED: Albumin 25% 25gram/100mL 25 GM/100 ML IV.SOLN IVPB ONE (13:57)
[2022-05-21 15:36] LABS: RBC,Peritoneal Fluid 69000 RBC/mcL
[2022-05-21 15:38] LABS: Total Protein,Peritoneal Fluid 3.1 g/dL
[2022-05-21 17:26] LABS: Appearance of Peritoneal Fl BLOODY (Clear)
[2022-05-21 17:31] LABS: Basophils,Peritoneal Fluid 0 %
[2022-05-21] MEDS ORDERED: Diclofenac Sodium [Voltaren] 100 GM Gel..Gram. TP PRN (20:11)
[2022-05-21] MEDS ORDERED: Artificial Tears SOLN 15 ML BOTTLE BOTH EYES PRN (20:11)
[2022-05-21] MEDS ORDERED: Melatonin 3 MG TABLET PO SCH (21:00)
[2022-05-22 04:17] LABS: Mean Corpuscular HGB Conc 28.1 g/dL (31.6-35.5); Mean Platelet Volume 10.5 fL (9.4-12.4); Red Cell Distribution Width 17.4 % (11.5-14.5)
[2022-05-22 04:18] LABS: Basophils % 0.3 %; Eosinophils # 0.3 K/mcL (0.0-0.6); Eosinophils % 3.1 %; Hematocrit 30.2 % (37.5-50.1); Hemoglobin 8.5 g/dL (12.9-16.9); Immature Granulocytes % 0.4 % (0-4); Lymphocytes % 8.9 %; Mean Corpuscular Hemoglobin 28.7 pg (28.0-33.3); Monocytes # 1.2 K/mcL (0.0-1.3); Monocytes % 10.9 %; Neutrophils # 8.5 K/mcL (1.6-8.9); Platelet Count 232 K/mcL (140-400); Red Blood Count 2.96 M/mcL (4.19-5.50); Segmented Neutrophils % 76.4 %; White Blood Count 11.1 K/mcL (4.3-11.1)
[2022-05-22 04:26] LABS: INR 1.4; Prothrombin Time 15.5 Seconds (9.4-12.1)
[2022-05-22 04:28] LABS: Activated Partial Thrombo Time 37.1 Seconds (26.0-36.0)
[2022-05-22 04:38] LABS: Albumin 2.5 g/dL (3.5-5.7); Albumin/Globulin Ratio 0.9 (1.1-2.2); Bilirubin,Direct 0.3 mg/dL (0.0-0.2); Bilirubin,Indirect 0.3 mg/dL (0.0-1.0); Bilirubin,Total 0.6 mg/dL (0.3-1.0); Globulin 2.9 g/dL (2.4-3.5); Phosphorous 4.9 mg/dL (2.7-4.5); Potassium 5.5 mEq/L (3.5-5.1); Total Protein 5.4 g/dL (6.4-8.9)
[2022-05-22 04:44] LABS: Anisocytosis 1+ (Not Present); Hypochromasia Present (Not Present)
[2022-05-22 04:45] LABS: Platelet Estimate Normal (Normal); Polychromasia 1+ (Not Present)
[2022-05-22] MEDS ORDERED: 0.9 % Sodium Chloride 250 ML IVC PRN (08:22)
[2022-05-22] MEDS ORDERED: *HR* Heparin 10,000 UNIT/10 ML VIAL IV PRN (08:22)
[2022-05-22] MEDS: Renal Vitamin 1 CAP CAPSULE PO SCH (09:24)
[2022-05-22] MEDS: Sennosides/Docusate Sodium TABLET PO SCH (09:24)
[2022-05-22] MEDS: calcitrioL 0.25 MCG CAPSULE PO SCH (09:24)
[2022-05-22] MEDS: Gabapentin 100 MG CAPSULE PO SCH (09:24)
[2022-05-22] MEDS: *HR* Amiodarone 200 MG TABLET PO SCH (09:25)
[2022-05-22] MEDS: Cholecalciferol (D-3) 1,000 UNIT (25MCG) TABLET PO SCH (09:25)
[2022-05-22] MEDS: Nicotine 14 MG PATCH.TD24 TD SCH (09:25)
[2022-05-22] MEDS: Lactulose Oral Soln 20 GM/30 ML UDC PO SCH (09:26)
[2022-05-22] MEDS ORDERED: Albumin 25% 25gram/100mL 25 GM/100 ML IV.SOLN IVPB ONE (10:17)
[2022-05-22 13:09] LABS: RBC,Pleural Fluid 88000 RBC/mcL
[2022-05-22 13:24] LABS: Adenovirus Not Detected (Not Detect); Bordetella Pertussis Not Detected (Not Detect); Chlamydophila pneumoniae Not Detected (Not Detect); Coronavirus 229E Not Detected (Not Detect); Coronavirus HKU1 Not Detected (Not Detect); Coronavirus NL63 Not Detected (Not Detect); Coronavirus OC43 Not Detected (Not Detect); Human Metapneumovirus Not Detected (Not Detect); Human Rhinovirus/Enterovirus Not Detected (Not Detect); Influenza A Subtype 2009 H1 Not Detected (Not Detect); Influenza B Not Detected (Not Detect); Mycoplasma pneumoniae Not Detected (Not Detect); Parainfluenza Virus 1 Not Detected (Not Detect); Parainfluenza Virus 2 Not Detected (Not Detect); Parainfluenza Virus 3 Not Detected (Not Detect); Parainfluenza Virus 4 Not Detected (Not Detect); Respiratory Syncytial Virus Not Detected (Not Detect); SARS-CoV-2 Not Detected (Not Detect)
[2022-05-22 13:35] LABS: Total Protein,Pleural Fluid 2.7 g/dL
[2022-05-22] MEDS: *HR* OxyCODONE Immed Rel 5 MG TABLET PO PRN (14:13)
[2022-05-22 14:49] LABS: Appearance of Pleural Fl Bloody (Clear); Basophils,Pleural Fluid 0 %; Eosinophils,Pleural Fluid 0 %
[2022-05-22 17:04] VITALS: BP 124/76; PULSE 88; TEMP 98.6; O2SAT 99
[2022-05-23 15:16] LABS: ANA IgG by ELISA NONE DETECTED (None Detected)
[2022-05-23 23:10] LABS: Fluid Source for Albumin PERITONEAL FL
[2022-05-24 05:12] LABS: Fluid Source for Albumin PLEURAL FL
[2022-05-25 02:09] LABS: ANCA IFA Titer <1:20 (<1:20)
[2022-05-25 10:48] LABS: ANCA IFA Pattern NONE DETECTED (None Detected); Serine Protease-3 Antibody 4 AU/mL (0-19)
== END 2022-05-22 17:13 | DRG 356 ==
LOC: 2NENU → SUATTDRO 12:12 → ICNU 19:24 → 2ANU 05-20 20:23
PROVIDERS: ADMIT Internal Medicine; ATTEND Family Medicine

== ENCOUNTER 2022-06-30 08:40 | Inpatient (IN) ==
[2022-06-30] MEDS ORDERED: 0.9 % Sodium Chloride 250 ML IVC ONE ×2 (10:58→20:14)
[2022-06-30] MEDS ORDERED: Ondansetron 4 MG/2 ML VIAL IVP PRN (11:32)
[2022-06-30] MEDS ORDERED: Melatonin 3 MG TABLET PO PRN (11:32)
[2022-06-30] MEDS ORDERED: Naloxone 0.4 MG/ML INJ IVP PRN (11:32)
[2022-06-30] MEDS ORDERED: Artificial Tears SOLN 15 ML BOTTLE BOTH EYES PRN (13:11)
[2022-06-30] MEDS ORDERED: Ipratropium/Albuterol Neb 3 ML IH PRN (13:11)
[2022-06-30] MEDS ORDERED: Saliva Stimulant 44.3ml BOTTLE PO PRN (13:35)
[2022-06-30] MEDS ORDERED: Albumin 25% 25gram/100mL 25 GM/100 ML IV.SOLN IVPB ONE (21:19)
[2022-06-30] MEDS: Gabapentin 100 MG CAPSULE PO SCH (21:21)
[2022-06-30] MEDS: Melatonin 3 MG TABLET PO SCH (21:21)
[2022-06-30] MEDS: polyethylene glycoL 3350 17 GM POWD.PACK PO SCH (21:21)
[2022-06-30] MEDS: Lactulose Oral Soln 20 GM/30 ML UDC PO SCH (23:52)
[2022-07-01] MEDS ORDERED: 0.9 % Sodium Chloride 250 ML IVC PRN (08:32)
[2022-07-01] MEDS ORDERED: *HR* Heparin 10,000 UNIT/10 ML VIAL IV PRN ×2 (08:32)
[2022-07-01] MEDS ORDERED: 0.9 % Sodium Chloride 2,000 ML PRIME SCH (08:45)
[2022-07-01] MEDS: Albumin 25% 25gram/100mL 25 GM/100 ML IV.SOLN IVPB SCH ×3 (10:16→23:23)
[2022-07-01] MEDS: *HR* Amiodarone 200 MG TABLET PO SCH (10:18)
[2022-07-01] MEDS: Renal Vitamin 1 CAP CAPSULE PO SCH (10:18)
[2022-07-01] MEDS: calcitrioL 0.25 MCG CAPSULE PO SCH (10:18)
[2022-07-01] MEDS: Cholecalciferol (D-3) 1,000 UNIT (25MCG) TABLET PO SCH (10:18)
[2022-07-01] MEDS: Sennosides 8.6 MG TABLET PO SCH (10:18)
[2022-07-01] MEDS: polyethylene glycoL 3350 17 GM POWD.PACK PO SCH ×2 (10:21→19:52)
[2022-07-01] MEDS: Gabapentin 100 MG CAPSULE PO SCH ×2 (10:21→19:53)
[2022-07-01] MEDS: Lactulose Oral Soln 20 GM/30 ML UDC PO SCH ×2 (10:21→19:52)
[2022-07-01] MEDS: Nicotine 14 MG PATCH.TD24 TD SCH (10:25)
[2022-07-01 12:58] LABS: INR 1.3; Prothrombin Time 14.8 Seconds (9.4-12.1)
[2022-07-01 13:00] LABS: Activated Partial Thrombo Time 38.1 Seconds (26.0-36.0)
[2022-07-01 13:09] LABS: Calcium 8.5 mg/dL (8.6-10.3); Potassium 5.2 mEq/L (3.5-5.1)
[2022-07-01 16:04] LABS: Appearance of Pleural Fl Clear (Clear)
[2022-07-01 16:12] LABS: RBC,Pleural Fluid < 2000 RBC/mcL
[2022-07-01 16:17] LABS: Basophils,Pleural Fluid 0 %; Eosinophils,Pleural Fluid 0 %
[2022-07-01] MEDS ORDERED: Iopamidol - 370 500 ML MLS IVP ONE (17:57)
[2022-07-01] MEDS: Melatonin 3 MG TABLET PO SCH (19:52)
[2022-07-02 06:41] LABS: Basophils % 0.1 %; Eosinophils # 0.1 K/mcL (0.0-0.6); Eosinophils % 0.6 %; Hematocrit 41.1 % (37.5-50.1); Hemoglobin 11.9 g/dL (12.9-16.9); Immature Granulocytes % 0.4 % (0-4); Lymphocytes # 0.6 K/mcL (0.6-4.6); Lymphocytes % 4.1 %; Mean Corpuscular Hemoglobin 28.9 pg (28.0-33.3); Mean Corpuscular Volume 99.8 fL (83.0-100.0); Mean Platelet Volume 10.6 fL (9.4-12.4); Monocytes # 1.3 K/mcL (0.0-1.3); Monocytes % 9.6 %; Neutrophils # 11.9 K/mcL (1.6-8.9); Nucleated Red Blood Cells 0.3 /100 WBC (0); Platelet Count 189 K/mcL (140-400); Red Blood Count 4.12 M/mcL (4.19-5.50); Red Cell Distribution Width 16.1 % (11.5-14.5); Segmented Neutrophils % 85.2 %
[2022-07-02 07:02] LABS: Potassium 4.9 mEq/L (3.5-5.1)
[2022-07-02] MEDS ORDERED: Piperacillin/Tazobactam 3.375 GM in 0.9 % Sodium Chloride Mini Bag 100 ML IVPB SCH (08:00)
[2022-07-02] MEDS: Albumin 25% 25gram/100mL 25 GM/100 ML IV.SOLN IVPB SCH ×4 (08:47→23:04)
[2022-07-02] MEDS: Renal Vitamin 1 CAP CAPSULE PO SCH (08:52)
[2022-07-02] MEDS: polyethylene glycoL 3350 17 GM POWD.PACK PO SCH ×2 (08:52→19:48)
[2022-07-02] MEDS: calcitrioL 0.25 MCG CAPSULE PO SCH (08:53)
[2022-07-02] MEDS: Cholecalciferol (D-3) 1,000 UNIT (25MCG) TABLET PO SCH (08:54)
[2022-07-02] MEDS: Sennosides 8.6 MG TABLET PO SCH (08:54)
[2022-07-02] MEDS: Nicotine 14 MG PATCH.TD24 TD SCH (09:03)
[2022-07-02] MEDS: Lactulose Oral Soln 20 GM/30 ML UDC PO SCH ×2 (09:05→19:48)
[2022-07-02] MEDS ORDERED: 0.9 % Sodium Chloride 250 ML IVC PRN (09:08)
[2022-07-02] MEDS ORDERED: Albumin 25% 25gram/100mL 25 GM/100 ML IV.SOLN IVPB PRN (09:08)
[2022-07-02] MEDS ORDERED: *HR* Heparin 10,000 UNIT/10 ML VIAL IV PRN (09:08)
[2022-07-02] MEDS: *HR* Amiodarone 200 MG TABLET PO SCH (12:42)
[2022-07-02] MEDS ORDERED: Vancomycin 2,000 MG/520 ML IV.SOLN IVPB ONE (14:00)
[2022-07-02] MEDS: Melatonin 3 MG TABLET PO SCH (19:48)
[2022-07-02] MEDS: Piperacillin/Tazobactam 3.375 GM in 0.9 % Sodium Chloride Mini Bag 100 ML IVPB SCH (19:48)
[2022-07-03] MEDS: Acetaminophen 325 MG TABLET PO PRN ×2 (00:36→14:07)
[2022-07-03 01:52] LABS: Hematocrit 38.8 % (37.5-50.1); Mean Corpuscular HGB Conc 28.4 g/dL (31.6-35.5); Mean Corpuscular Hemoglobin 28.7 pg (28.0-33.3); Mean Corpuscular Volume 101.3 fL (83.0-100.0); Mean Platelet Volume 10.1 fL (9.4-12.4); Platelet Count 165 K/mcL (140-400); Red Blood Count 3.83 M/mcL (4.19-5.50); White Blood Count 12.1 K/mcL (4.3-11.1)
[2022-07-03 04:09] LABS: Potassium 3.9 mEq/L (3.5-5.1)
[2022-07-03] MEDS: Piperacillin/Tazobactam 3.375 GM in 0.9 % Sodium Chloride Mini Bag 100 ML IVPB SCH ×2 (04:13→17:48)
[2022-07-03] MEDS: Albumin 25% 25gram/100mL 25 GM/100 ML IV.SOLN IVPB SCH ×4 (05:11→23:45)
[2022-07-03] MEDS ORDERED: Renal Vitamin 1 CAP CAPSULE PO SCH (09:00)
[2022-07-03] MEDS: Lactulose Oral Soln 20 GM/30 ML UDC PO SCH ×3 (09:20→20:29)
[2022-07-03] MEDS: polyethylene glycoL 3350 17 GM POWD.PACK PO SCH ×3 (09:21→20:30)
[2022-07-03] MEDS: calcitrioL 0.25 MCG CAPSULE PO SCH (09:21)
[2022-07-03] MEDS: Sennosides 8.6 MG TABLET PO SCH (09:21)
[2022-07-03] MEDS: Renal Vitamin 1 CAP CAPSULE PO SCH (09:21)
[2022-07-03] MEDS: Nicotine 14 MG PATCH.TD24 TD SCH (09:21)
[2022-07-03] MEDS: Cholecalciferol (D-3) 1,000 UNIT (25MCG) TABLET PO SCH (09:21)
[2022-07-03] MEDS: *HR* Amiodarone 200 MG TABLET PO SCH (09:22)
[2022-07-03] MEDS ORDERED: Vancomycin 2,000 MG/520 ML IV.SOLN IVPB ONE (16:00)
[2022-07-03] MEDS ORDERED: Carbamide Peroxide 150 DROP/15 ML BOTTLE RIGHT EAR ONE (20:24)
[2022-07-03] MEDS: Melatonin 3 MG TABLET PO SCH (20:29)
[2022-07-03] MEDS: Simethicone 80 MG TAB.CHEW PO PRN (21:23)
[2022-07-04] MEDS: Piperacillin/Tazobactam 3.375 GM in 0.9 % Sodium Chloride Mini Bag 100 ML IVPB SCH ×2 (04:40→16:06)
[2022-07-04 05:18] LABS: Fluid Source for Albumin PLEURAL FL
[2022-07-04] MEDS: Albumin 25% 25gram/100mL 25 GM/100 ML IV.SOLN IVPB SCH ×3 (05:59→17:59)
[2022-07-04] MEDS: Nicotine 14 MG PATCH.TD24 TD SCH (08:29)
[2022-07-04] MEDS: Lactulose Oral Soln 20 GM/30 ML UDC PO SCH ×2 (08:31→21:00)
[2022-07-04] MEDS: polyethylene glycoL 3350 17 GM POWD.PACK PO SCH ×2 (08:32→21:01)
[2022-07-04] MEDS: calcitrioL 0.25 MCG CAPSULE PO SCH (08:33)
[2022-07-04] MEDS: *HR* Amiodarone 200 MG TABLET PO SCH (08:34)
[2022-07-04] MEDS: Sennosides 8.6 MG TABLET PO SCH (08:34)
[2022-07-04] MEDS: Renal Vitamin 1 CAP CAPSULE PO SCH (08:36)
[2022-07-04] MEDS: Cholecalciferol (D-3) 1,000 UNIT (25MCG) TABLET PO SCH (08:37)
[2022-07-04] MEDS ORDERED: *HR* Heparin 10,000 UNIT/10 ML VIAL IV PRN ×2 (09:23)
[2022-07-04] MEDS ORDERED: 0.9 % Sodium Chloride 250 ML IVC PRN (09:23)
[2022-07-04] MEDS: Simethicone 80 MG TAB.CHEW PO PRN ×2 (10:12→16:13)
[2022-07-04 14:21] LABS: Calcium 8.6 mg/dL (8.6-10.3); Potassium 4.5 mEq/L (3.5-5.1)
[2022-07-04] MEDS ORDERED: Vancomycin 1,250 MG/262.5 ML IV.SOLN IVPB ONE (15:00)
[2022-07-04 17:16] LABS: Immature Granulocytes % 0.4 % (0-4); Red Cell Distribution Width 15.9 % (11.5-14.5)
[2022-07-04 17:17] LABS: Calcium 8.2 mg/dL (8.6-10.3); Potassium 4.5 mEq/L (3.5-5.1)
[2022-07-04 17:21] LABS: Hemoglobin 11.2 g/dL (12.9-16.9); Mean Corpuscular HGB Conc 28.7 g/dL (31.6-35.5); Mean Corpuscular Hemoglobin 29.2 pg (28.0-33.3); Mean Corpuscular Volume 101.6 fL (83.0-100.0); Mean Platelet Volume 10.8 fL (9.4-12.4); Platelet Count 149 K/mcL (140-400); Red Blood Count 3.84 M/mcL (4.19-5.50); Segmented Neutrophils % 78.4 %; White Blood Count 9.5 K/mcL (4.3-11.1)
[2022-07-04 17:22] LABS: Basophils % 0.4 %; Eosinophils # 0.1 K/mcL (0.0-0.6); Eosinophils % 1.5 %; Lymphocytes # 0.6 K/mcL (0.6-4.6); Lymphocytes % 6.5 %; Monocytes # 1.2 K/mcL (0.0-1.3); Monocytes % 12.8 %; Neutrophils # 7.5 K/mcL (1.6-8.9)
[2022-07-04 18:41] LABS: Hypochromasia Present (Not Present); Macrocytosis Present (Not Present)
[2022-07-04 18:42] LABS: Platelet Estimate Normal (Normal)
[2022-07-04] MEDS ORDERED: Albumin 25% 25gram/100mL 25 GM/100 ML IV.SOLN IVPB ONE ×2 (20:29→22:36)
[2022-07-04] MEDS: Melatonin 3 MG TABLET PO SCH (21:00)
[2022-07-05] MEDS: Albumin 25% 25gram/100mL 25 GM/100 ML IV.SOLN IVPB SCH ×4 (00:07→17:23)
[2022-07-05] MEDS: Simethicone 80 MG TAB.CHEW PO PRN ×3 (00:10→20:42)
[2022-07-05] MEDS: Acetaminophen 325 MG TABLET PO PRN (03:26)
[2022-07-05 04:21] LABS: Hematocrit 36.6 % (37.5-50.1); Hemoglobin 10.6 g/dL (12.9-16.9); Mean Corpuscular Hemoglobin 29.4 pg (28.0-33.3); Mean Corpuscular Volume 101.4 fL (83.0-100.0); Mean Platelet Volume 10.8 fL (9.4-12.4); Platelet Count 148 K/mcL (140-400); Red Blood Count 3.61 M/mcL (4.19-5.50); Red Cell Distribution Width 15.9 % (11.5-14.5); White Blood Count 10.7 K/mcL (4.3-11.1)
[2022-07-05 04:47] LABS: Calcium 8.1 mg/dL (8.6-10.3); Potassium 4.6 mEq/L (3.5-5.1)
[2022-07-05] MEDS: Piperacillin/Tazobactam 3.375 GM in 0.9 % Sodium Chloride Mini Bag 100 ML IVPB SCH ×2 (04:59→17:23)
[2022-07-05] MEDS: Nicotine 14 MG PATCH.TD24 TD SCH (07:49)
[2022-07-05] MEDS: Lactulose Oral Soln 20 GM/30 ML UDC PO SCH ×2 (07:50→20:42)
[2022-07-05] MEDS: polyethylene glycoL 3350 17 GM POWD.PACK PO SCH ×2 (07:50→20:44)
[2022-07-05] MEDS: Sennosides 8.6 MG TABLET PO SCH (07:50)
[2022-07-05] MEDS: Cholecalciferol (D-3) 1,000 UNIT (25MCG) TABLET PO SCH (07:51)
[2022-07-05] MEDS: *HR* Amiodarone 200 MG TABLET PO SCH (07:51)
[2022-07-05] MEDS: calcitrioL 0.25 MCG CAPSULE PO SCH (07:51)
[2022-07-05] MEDS: Renal Vitamin 1 CAP CAPSULE PO SCH (07:51)
[2022-07-05] MEDS: Melatonin 3 MG TABLET PO SCH (20:42)
[2022-07-06] MEDS: Acetaminophen 325 MG TABLET PO PRN (03:07)
[2022-07-06 03:58] LABS: Calcium 8.4 mg/dL (8.6-10.3); Potassium 4.7 mEq/L (3.5-5.1)
[2022-07-06] MEDS: Albumin 25% 25gram/100mL 25 GM/100 ML IV.SOLN IVPB SCH ×3 (05:15→11:45)
[2022-07-06] MEDS: Piperacillin/Tazobactam 3.375 GM in 0.9 % Sodium Chloride Mini Bag 100 ML IVPB SCH (05:15)
[2022-07-06] MEDS: Nicotine 14 MG PATCH.TD24 TD SCH (08:37)
[2022-07-06] MEDS: Cholecalciferol (D-3) 1,000 UNIT (25MCG) TABLET PO SCH (08:37)
[2022-07-06] MEDS: Sennosides 8.6 MG TABLET PO SCH (08:37)
[2022-07-06] MEDS: polyethylene glycoL 3350 17 GM POWD.PACK PO SCH ×2 (08:37→08:44)
[2022-07-06] MEDS: calcitrioL 0.25 MCG CAPSULE PO SCH (08:37)
[2022-07-06] MEDS: Renal Vitamin 1 CAP CAPSULE PO SCH (08:37)
[2022-07-06] MEDS: *HR* Amiodarone 200 MG TABLET PO SCH (08:38)
[2022-07-06] MEDS: Lactulose Oral Soln 20 GM/30 ML UDC PO SCH (08:39)
[2022-07-06 11:41] VITALS: BP 75/27; PULSE 76; TEMP 98.8; O2SAT 98
== END 2022-07-06 12:55 | disposition short-term general hospital (02) | DRG 186 ==
LOC: 2NENU → SUATTDRO 07-01 12:12
PROVIDERS: ADMIT Hospitalist; ATTEND Internal Medicine